=== PATIENT | female | born 1975 | race Caucasian/White ===

== ENCOUNTER 2020-10-02 12:24 | Emergency (ER) | payer OTHER, MEDICAID, SELFPAY ==
[2020-10-02] VITALS (12 sets, daily range): BP systolic 118–163; BP diastolic 65–108; PULSE 117–129; RESP 16–26; TEMP 36.7–38.6; O2SAT 87–100; BMI 73.3
--- NOTE | 2020-10-02 12:46 | EKG12_ITS ---
Test Reason : CELLULITIS Blood Pressure : / mmHG Vent. Rate : 120 BPM Atrial Rate : 120 BPM P-R Int : 138 ms QRS Dur : 082 ms QT Int : 316 ms P-R-T Axes : 039 062 -21 degrees QTc Int : 446 ms Sinus tachycardia Nonspecific T wave abnormality Abnormal ECG Confirmed by ANGELIA OSBORNE, MARIBELL ([id number]), marketing editor JOSE DAVIS ([id number]) on 10/04/2020 12:40:40 PM Referred By: MR Confirmed By:MARIBELL GALAN MD
[2020-10-02 13:17] LABS: Absolute Lymphocyte Count 0.99 X10^3/uL (0.83-4.51); Absolute Neutrophil Count 20.5 X10^3/uL (2.0-7.7); Basophil# 0.03 X10^3/uL; Basophil% 0.1 % (0-1); Eosinophil# 0.03 X10^3/uL; Eosinophils% 0.1 % (0-5); Hematocrit 31.4 % (37-47); Hemoglobin 9.7 g/dL (12.0-15.0); Lymphocyte # 0.99 X10^3/ul (0.83-4.51); Lymphocyte % 4.4 % (19-41); Mean Corp Hgb Conc 30.9 g/dL (32-36); Mean Corpuscular Hgb 25.5 pg (27.0-32.0); Mean Corpuscular Volume 82.4 fL (81-99); Mean Platelet Vol. 10.2 fl (6.2-12.0); Monocyte# 0.53 X10^3/uL; Monocyte% 2.4 % (0-10); NRBC Flagged by Analyzer 0 % (0-5); Neutrophil # 20.46 X10^3/uL (2.7-7.7); POSITIVE DIFFERENTIAL YES; Platelet Count 250 K/mm3 (150-450); RBC Distribution Width CV 16.5 % (11.6-14.6); RBC Distribution Width SD 49.8 fl (35.1-43.9); Red Blood Count 3.81 M/mm3 (4.2-5.4); White Blood Count 22.3 K/mm3 (4.4-11.0)
[2020-10-02 13:19] LABS: Differential Indicated SCAN CRITERIA MET
[2020-10-02 13:34] LABS: International Normalized Ratio 1.2; Partial Thromboplast Time 35.2 Seconds (24.1-36.2); Prothrombin Time (Protime)PT. 14.4 SECONDS (11.7-14.9)
[2020-10-02 13:34] LABS: ALB/GLOB Ratio 0.4 RATIO (0.9-2.4); AST(SGOT) 18 U/L (15-37); Alanine Aminotransfer ALT/SGPT 17 U/L (13-56); Albumin, Serum 2.3 g/dL (3.2-5.0); Alkaline Phosphatase 124 U/L (45-117); Anion Gap 7 (5-15); BUN 10 mg/dL (7-18); BUN/Creat Ratio 11.5 RATIO (10-20); Calcium,Total 8.6 mg/dL (8.5-10.1); Chloride 96 mmol/L (98-107); Creatinine, Serum 0.87 mg/dL (0.55-1.02); EST Glomerular Filtration Rate 76 mL/min (>60); Est Glom Filt Rate - Afr Amer 91 mL/min (>60); Estimated Creatinine Clearance 78.05 ml/min; Globulin 5.5 g/dL (2.2-4.2); Glucose 151 mg/dL (74-106); Potassium 3.6 mmol/L (3.5-5.1); Protein, Total 7.8 g/dL (6.4-8.2); Sodium Level 133 mmol/L (136-145)
[2020-10-02] MEDS: 0.9% Normal Saline 1,000 ML 999 ML IV (13:44)
[2020-10-02 14:01] LABS: Lactic Acid 2.5 mmol/L (0.4-1.9)
--- NOTE | 2020-10-02 14:03 | EDS_ITS ---
HPI History of Present Illness Chief Complaint: Cellulitis Narrative Narrative: Patient presenting for evaluation due to concerns for cellulitis. Patient has a underlying history of lymphedema and T-cell lymphoma. Patient reports that over the course the last 1-2 days she has had an onset of cellulitis in her right leg. Redness has been spreading up her leg to her thigh is intermittently painful. She does report that she has been dealing with chills and some nausea associated with this. No vomiting. No other constitutional symptoms. Patient states that she has had multiple similar episodes in the past that have required antibiotics and admission. Review of systems otherwise negative. [facility] Medical History Asthma Crohn disease Carole-Danlos syndrome Kidney stones Lumbar spondylosis Lymphedema Obesity Renal atrophy Splenomegaly T-cell lymphoma Home Medications acetaminophen [Tylenol Arthritis] 1,300 mg PO Q12H 10/02/20 [History Last Taken 10/02/20] albuterol sulfate 1 inh INHALATION Q6H PRN 10/02/20 [History Last Taken 10/01/20] azelastine 1 spray INTRANASAL BID 10/02/20 [History Last Taken 10/01/20] ciclesonide 1 puff INHALATION BID 10/02/20 [History Last Taken 10/01/20] duloxetine 20 mg PO BID 10/02/20 [History Last Taken 10/01/20] furosemide 40 mg PO DAILY 10/02/20 [History Last Taken 10/01/20] gabapentin 300 mg PO TID 10/02/20 [History Last Taken 10/01/20] [id number] [Osteo Bi-Flex Triple Strength] 1 tab PO BID 10/02/20 [History Last Taken 10/01/20] ibuprofen 400 mg PO DAILY PRN 10/02/20 [History Last Taken Unknown] montelukast 10 mg PO QHS 10/02/20 [History Last Taken 10/01/20] Allergy/AdvReac Type Severity Reaction Status Date / Time Nitrate Analogues Allergy Unknown Other Verified 10/02/20 12:45 adhesive tape Allergy Rash Verified 10/02/20 12:45 aspirin Allergy Angioedema Verified 10/02/20 12:45 benzonatate Allergy Shortness Verified 10/02/20 12:45 of breath cephalexin Allergy Rash Verified 10/02/20 12:45 coconut oil Allergy Other Verified 10/02/20 12:45 copper Allergy Other Verified 10/02/20 12:45 formaldehyde Allergy Anaphylaxis Verified 10/02/20 12:45 Iodine and Iodide Containing Allergy Anaphylaxis Verified 10/02/20 12:45 Produc latex Allergy Anaphylaxis Verified 10/02/20 12:45 mold Allergy Anaphylaxis Verified 10/02/20 12:45 nickel Allergy Rash Verified 10/02/20 12:45 nitrofurantoin Allergy Anaphylaxis Verified 10/02/20 12:45 palm oil Allergy Other Verified 10/02/20 12:45 Penicillins Allergy Rash Verified 10/02/20 12:45 soy Allergy Other Verified 10/02/20 12:45 Sulfa (Sulfonamide Allergy Rash Verified 10/02/20 12:45 Antibiotics) topiramate Allergy Other Verified 10/02/20 12:45 aspartame AdvReac Other Verified 10/02/20 12:45 lactose AdvReac Nausea Verified 10/02/20 12:45 morphine AdvReac Other Verified 10/02/20 12:45 eggs Allergy Rash Uncoded 10/02/20 12:45 gold Allergy Rash Uncoded 10/02/20 12:45 Social History Smoking Status: Never smoker ROS ROS ED Constitutional Constitutional ED: Reports chills and fever(s) ENT ENT ED: Denies rhinorrhea Cardiovascular Cardiovascular: Denies chest pain Respiratory/Chest Respiratory/Chest: Denies cough or dyspnea Gastrointestinal Gastrointestinal: Denies abdominal pain, diarrhea, nausea or vomiting Genitourinary Genitourinary ED: Denies dysuria or hematuria Musculoskeletal Musculoskeletal: Denies back pain Integumentary Reports rash Neurologic Neurologic: Denies paresthesias or weakness Psychiatric Psychiatric: Denies depression Endocrine Endocrinology: Denies fatigue Allergic/Immunologic Allergic/Immunologic ED: Denies urticaria EXAM Physical Exam Const Vital Signs: 10/02/20 12:30 10/02/20 12:33 10/02/20 13:26 Temperature 99.1 F 99.1 F Temperature Source Temporal Temporal Pulse Rate 124 H 124 H 122 H Respiratory Rate 24 H 24 H 24 H Blood Pressure 140/70 H 140/70 H 133/82 H Blood Pressure Mean 93 93 99 Pulse Ox 95 95 100 Oxygen Delivery Method Room Air Room Air Room Air 10/02/20 13:35 10/02/20 13:36 10/02/20 13:52 Temperature 98.1 F 98.1 F 99.0 F Temperature Source Temporal Temporal Temporal Pulse Rate 120 H 117 H Respiratory Rate 20 H 20 H Blood Pressure 133/82 H 131/73 H Blood Pressure Mean 99 92 Pulse Ox 99 100 Oxygen Delivery Method Room Air Room Air Room Air 10/02/20 14:43 Temperature 99.0 F Temperature Source Temporal Pulse Rate 125 H Respiratory Rate 20 H Blood Pressure 142/90 H Blood Pressure Mean 107 Pulse Ox 95 Oxygen Delivery Method Room Air Positive well nourished and well developed Constitutional Narrative: Morbidly obese female sitting upright in bed not acutely distressed General Appearance ED: well developed and NAD HEENT Reports moist mucous membranes Negative for trauma or tenderness Eyes EOMs intact bilaterally Neck no lymphadenopathy, supple and no JVD Chest Wall inspection of chest normal Resp normal respiratory effort and clear to auscultation bilaterally Cardio regular rhythm, no murmurs and peripheral pulses 2+ throughout Rate: other Other Details: Tachycardic and regular normal pulses no murmurs GI normal to inspection, nondistended, normoactive bowel sounds, non-tender and no masses Palpation: soft Back/Spine normal to inspection Extremity Extremity Narrative: Right leg shows significant cellulitis going from the foot all the way up to the mid thigh. There is no crepitus or subcutaneous emphysema, minimal tenderness to palpation. General Extremety ED: Yes tenderness Neuro oriented x3 and no sensory deficits noted Sensorium / Orientation: alert Motor Exam: strength 5/5 throughout Psych mental status grossly normal Skin no rashes or lesions noted MDM MDM MDM Narrative Medical decision making narrative: Patient presented for evaluation secondary to cellulitis of the leg. This was a rather precipitous onset, patient has a history of immunosuppression and was tachycardic, sepsis work-up was obtained patient has multiple medication allergies, so she was empirically given clindamycin. Patient was started on fluid resuscitation. Patient was noted to have a white blood cell count of 22,000 with a neutrophilic predominance, unknown what her baseline is due to the fact that we do not have any prior labs. Chemistry demonstrates normal renal function lactic acid modestly elevated at 2.5. Patient does have evidence of sepsis from cellulitis, I contacted the hospitalist Dr. Kirk for admission. Upon evaluation of the patient she was concerned about the possibility of maybe even a necrotizing infection, so we added amikacin as well as vancomycin to the patient's antibiotic regimen and did order a CT scan of the leg. Patient reports that she has a history of anaphylaxis to iodine-containing products and she is not able to receive a contrasted CT of the leg. Repeat evaluation of the patient at 1450 shows her to continue to have some tachycardia at 120 with a normal blood pressure. Her fluid resuscitation is still continuing at this time. Patient did spike a fever which was addressed with Tylenol. Repeat perfusion exam continues to show the patient to have some tachycardia with normal blood pressure normal mentation. CT imaging per radiology did not demonstrate any necrotizing fasciitis, there was a potential slight phlegmon in the thigh. Patient will be admitted for further medical management. Lab Data Labs: Laboratory Results - last 24 hr 10/02/20 10/02/20 10/02/20 13:05 13:05 13:05 WBC 22.3 H RBC 3.81 L Hgb 9.7 L Hct 31.4 L MCV 82.4 MCH 25.5 L MCHC 30.9 L RDW Std Deviation 49.8 H RDW Coeff of Fanny 16.5 H Plt Count 250 MPV 10.2 Immature Gran % (Auto) 1.000 H Neut % (Auto) 92.0 H Lymph % (Auto) 4.4 L [place] % (Auto) 2.4 Eos % (Auto) 0.1 Baso % (Auto) 0.1 Absolute Neuts (auto) 20.5 H Absolute Lymphs (auto) 0.99 Nucleated RBC % 0 PT INR APTT Sodium 133 L Potassium 3.6 Chloride 96 L Carbon Dioxide 30.0 Anion Gap 7 BUN 10 Creatinine 0.87 Estim Creat Clear Calc 78.05 Est GFR (MDRD) Af Amer 91 Est GFR (MDRD) Non-Af 76 BUN/Creatinine Ratio 11.5 Glucose 151 H Lactic Acid 2.5 H* Calcium 8.6 Total Bilirubin 0.50 AST 18 ALT 17 Alkaline Phosphatase 124 H Total Protein 7.8 Albumin 2.3 L Globulin 5.5 H Albumin/Globulin Ratio 0.4 L 10/02/20 13:15 WBC RBC Hgb Hct MCV MCH MCHC RDW Std Deviation RDW Coeff of Fanny Plt Count MPV Immature Gran % (Auto) Neut % (Auto) Lymph % (Auto) [place] % (Auto) Eos % (Auto) Baso % (Auto) Absolute Neuts (auto) Absolute Lymphs (auto) Nucleated RBC % PT 14.4 INR 1.2 APTT 35.2 Sodium Potassium Chloride Carbon Dioxide Anion Gap BUN Creatinine Estim Creat Clear Calc Est GFR (MDRD) Af Amer Est GFR (MDRD) Non-Af BUN/Creatinine Ratio Glucose Lactic Acid Calcium Total Bilirubin AST ALT Alkaline Phosphatase Total Protein Albumin Globulin Albumin/Globulin Ratio Radiography Diagnostic Testing: Radiology Impression Lower Extremity CT 10/02/20 14:07 IMPRESSION: Diffuse subcutaneous edema and skin thickening in the distal portion of the right thigh and right leg as described. Questionable focal area of the phlegmon in the anterior medial aspect of the mid leg as described. The underlying bony structures are unremarkable. Electronically Signed: Mika Lockwood MD at 15:36 EDT , Service support , Critical Care Time Critical care time (excluding procedures): 30-74 minutes, Including time spent:, Discussing w/Patient &/or Family/Diesel Service Journeyman, Discussing w/Consultants, Arranging Admission or Transfer and Performing Direct Patient Care at Bedside Discharge Plan Triage Chief Complaint: Cellulitis ED Provider: Kory Montes Dx/Rx/DC Orders Clinical Impression: Cellulitis, Sepsis
--- NOTE | 2020-10-02 14:07 | CT_ITS ---
STUDY: CT SCAN LOWER EXTREMITY RIGHT REASON FOR EXAM: Female, 44 years old. Infection RADIATION DOSAGE (If Supplied By Facility): CTDIvol = ( 28.23 ) mGy, DLP = ( 2527.91 ) mGycm. Individualized dose optimization techniques were used for this CT.? TECHNIQUE: Multiple axial tomographic images of the right lower extremity were obtained without intravenous contrast administration. Sagittal and coronal reconstruction was obtained as well. COMPARISON: None. FINDINGS: There is diffuse increased linear markings in the distal portion of the right thigh extending into the lower leg more prominent on the medial aspect. There is diffuse skin thickening in the proximal portion of the right leg. This also evidence of diffuse skin thickening in the mid and distal portions of the leg. Questionable focal phlegmon measuring 8.5 cm x 2 cm in the anterior medial aspect of the mid leg. CT/Extremity Lower without Contra IMPRESSION: Diffuse subcutaneous edema and skin thickening in the distal portion of the right thigh and right leg as described. Questionable focal area of the phlegmon in the anterior medial aspect of the mid leg as described. The underlying bony structures are unremarkable. Electronically Signed: Mika Lockwood MD at 15:36 EDT , Service support ,
[2020-10-02] MEDS: HYDROmorphone 1 MG/ML Syringe IV (14:40)
[2020-10-02] MEDS: Acetaminophen 500 MG Tablet 1000 MG PO (16:01)
[2020-10-02 17:08] LABS: CPK Total, Creatine Kinase 31 U/L (26-192)
[2020-10-02 17:13] LABS: Reflex Lactate? Y
[2020-10-02 18:51] LABS: Lactic Acid 2.9 mmol/L (0.4-1.9)
--- NOTE | 2020-10-04 06:28 | ED.RN ---
POSITIVE BLOOD CULTURE RESULTS FAXED TO [facility] FLOOR THAT PT WAS ADMITTED TO. THIS RN ALSO CALLED THE FLOOR ([phone]) AND NOTIFIED THEM OF THE RESULT
== END 2020-10-02 19:24 | disposition short-term general hospital (02) ==
LOC: ED 13:17
PROVIDERS: Emergency Medicine; Emergency Provider Emergency Medicine
DX: L03.115 Cellulitis of right lower limb (principal); A41.9 Sepsis, unspecified organism; D84.9 Immunodeficiency, unspecified; E66.9 Obesity, unspecified; Z68.45 Body mass index [BMI] 70 or greater, adult; I89.0 Lymphedema, not elsewhere classified; J45.909 Unspecified asthma, uncomplicated; K50.90 Crohn's disease, unspecified, without complications; Q79.60 Ehlers-Danlos syndrome, unspecified; M47.816 Spondylosis without myelopathy or radiculopathy, lumbar region; Z85.6 Personal history of leukemia; Z87.442 Personal history of urinary calculi; Z79.899 Other long term (current) drug therapy
CPT/HCPCS: 73700; 80053; 82550; 83605; 85025; 85610; 85730; 87040; 87149; 87186; 93005; 96365; 96368; 96375; 99285; J7030; J7040; J7050; A4216; J0278

== ENCOUNTER 2020-10-12 13:39 | Inpatient (IN) | payer OTHER, MEDICAID, SELFPAY ==
[2020-10-02 12:30] VITALS: BMI 73.3
[2020-10-12] VITALS (22 sets, daily range): BP systolic 112–140; BP diastolic 60–94; PULSE 97–112; RESP 18–34; TEMP 36.2–37.3; O2SAT 90–100; BMI 73.5; BMI 72.8
--- NOTE | 2020-10-12 14:32 | RAD_ITS ---
HISTORY: sob EXAMINATION/TECHNIQUE: XR Chest 1 View: Removal upright AP chest x-ray COMPARISON: None FINDINGS: LINES/DEVICES: None. LUNGS: Hazy bilateral airspace opacities with consolidation at the periphery of the left lower lung field. No definite pleural effusion. MEDIASTINUM AND CARDIOVASCULAR STRUCTURES: Cardiac silhouette not enlarged. Central airways and mediastinal contour are unremarkable. BONES AND SOFT TISSUES: No acute bony abnormalities. RAD/Chest 1 View (Portable) IMPRESSION: Bilateral airspace disease with peripheral consolidation suspicious for pneumonia including atypical or viral pneumonia. at 1524 Reported and signed by: Quinn Sarah MD Electronically Signed: Quinn Sarah MD at 15:23 EDT Tel , Service support ,
--- NOTE | 2020-10-12 14:32 | EKG12_ITS ---
Test Reason : CHEST PAIN Blood Pressure : / mmHG Vent. Rate : 104 BPM Atrial Rate : 104 BPM P-R Int : 132 ms QRS Dur : 078 ms QT Int : 338 ms P-R-T Axes : 055 061 021 degrees QTc Int : 444 ms Sinus tachycardia Nonspecific T wave abnormality Abnormal ECG Confirmed by ALVIN OSBORNE, KAREN ([id number]), industrial editor JOSE DAVIS ([id number]) on 10/16/2020 9:13:52 AM Referred By: CARIDAD Confirmed By:GUADALUPE ESQUIVEL MD
--- NOTE | 2020-10-12 14:36 | ED.VIS.DYS ---
HPI History of Present Illness Chief Complaint: Shortness of Breath Informant: patient Narrative Narrative: Patient is a 44-year-old female presenting with shortness of breath. Patient states he has a history of asthma. She was just discharged from [facility] on Friday, 4 days ago, where she was treated for cellulitis of her right lower extremity. Patient is discharged home on doxycycline. She states since she was discharged in the hospital she has had worsening cough and shortness of breath. She states she is coughing up a lot of mucus that is clear but with red strings in it. She notes that she was on oxygen in the hospital but was not discharged on any oxygen. She states she has chest pressure and wheezing. She denies any chest pain. She has subjective fevers but no documented fever. She is not currently on any anticoagulation but states she does have a history of DVT associated with corpse fly bite. Patient's been using her inhaler at home with no relief of her symptoms. She knows she has an anaphylactic history of iodine allergy and is not tolerated steroid prep in the past. [facility] Medical History Asthma Chronic pain Crohn disease Carole-Danlos syndrome GERD (gastroesophageal reflux disease) Irregular heart beat Kidney stones Lumbar spondylosis Lymphedema Migraines Obesity Renal atrophy Rheumatoid arthritis Splenomegaly T-cell lymphoma Home Medications acetaminophen [Tylenol Arthritis] 1,300 mg PO Q12H 10/02/20 [History Last Taken 10/02/20] albuterol sulfate 1 inh INHALATION Q6H PRN 10/02/20 [History Last Taken 10/01/20] azelastine 1 spray INTRANASAL BID 10/02/20 [History Last Taken 10/01/20] ciclesonide 1 puff INHALATION BID 10/02/20 [History Last Taken 10/01/20] duloxetine 20 mg PO BID 10/02/20 [History Last Taken 10/01/20] furosemide 40 mg PO DAILY 10/02/20 [History Last Taken 10/01/20] gabapentin 300 mg PO PRN PRN 10/02/20 [History Last Taken 10/01/20] [id number]-jamie-bosw [Osteo Bi-Flex Triple Strength] 1 tab PO BID 10/02/20 [History Last Taken 10/01/20] ibuprofen 400 mg PO DAILY PRN 10/02/20 [History Last Taken Unknown] montelukast 10 mg PO QHS 10/02/20 [History Last Taken 10/01/20] doxycycline hyclate 100 mg PO DAILY 10/12/20 [History Last Taken Unknown] Allergy/AdvReac Type Severity Reaction Status Date / Time Nitrate Analogues Allergy Unknown Other Verified 10/02/20 12:45 adhesive tape Allergy Rash Verified 10/02/20 12:45 aspirin Allergy Angioedema Verified 10/02/20 12:45 benzonatate Allergy Shortness Verified 10/02/20 12:45 of breath cephalexin Allergy Rash Verified 10/02/20 12:45 coconut oil Allergy Other Verified 10/02/20 12:45 copper Allergy Other Verified 10/02/20 12:45 formaldehyde Allergy Anaphylaxis Verified 10/02/20 12:45 Iodine and Iodide Containing Allergy Anaphylaxis Verified 10/02/20 12:45 Produc latex Allergy Anaphylaxis Verified 10/02/20 12:45 mold Allergy Anaphylaxis Verified 10/02/20 12:45 nickel Allergy Rash Verified 10/02/20 12:45 nitrofurantoin Allergy Anaphylaxis Verified 10/02/20 12:45 palm oil Allergy Other Verified 10/02/20 12:45 Penicillins Allergy Rash Verified 10/02/20 12:45 soy Allergy Other Verified 10/02/20 12:45 Sulfa (Sulfonamide Allergy Rash Verified 10/02/20 12:45 Antibiotics) topiramate Allergy Other Verified 10/02/20 12:45 aspartame AdvReac Other Verified 10/02/20 12:45 lactose AdvReac Nausea Verified 10/02/20 12:45 morphine AdvReac Other Verified 10/02/20 12:45 eggs Allergy Rash Uncoded 10/02/20 12:45 gold Allergy Rash Uncoded 10/02/20 12:45 Social History Smoking Status: Never smoker ROS ROS ED Constitutional Constitutional ED: Reports fever(s) Eyes Eyes: Denies change in vision ENT ENT ED: Denies rhinorrhea or sore throat Cardiovascular Cardiovascular: Reports chest pain; Denies palpitations or racing heartbeat Respiratory/Chest Respiratory/Chest: Reports cough, dyspnea and sputum Gastrointestinal Gastrointestinal: Denies abdominal pain, nausea or vomiting Genitourinary Genitourinary ED: Denies dysuria or hematuria Musculoskeletal Musculoskeletal: Denies arthralgias or myalgias Integumentary Reports rash and other Details: right leg- treated for cellulitis Neurologic Neurologic: Denies headache(s) or weakness EXAM Physical Exam Const Vital Signs: 10/12/20 13:43 10/12/20 14:04 10/12/20 14:28 Temperature 98.6 F 98.6 F Temperature Source Temporal Temporal Pulse Rate 107 H 107 H Respiratory Rate 26 H 26 H Respiratory Effort Short of Breath Labored Accessory Muscle Use Respiratory Depth Shallow Respiratory Pattern Tachypnea Blood Pressure 138/75 H 138/75 H Blood Pressure Mean 96 96 Pulse Ox 90 90 Oxygen Delivery Method Non-Rebreather Room Air Nasal Cannula Oxygen Flow Rate (L/min) 15 15 2 10/12/20 14:44 Temperature Temperature Source Pulse Rate 103 H Respiratory Rate 34 H Respiratory Effort Respiratory Depth Respiratory Pattern Tachypnea Blood Pressure Blood Pressure Mean Pulse Ox Oxygen Delivery Method Oxygen Flow Rate (L/min) Positive obese General Appearance ED: NAD Nutritional Appearance: obese HEENT Reports moist mucous membranes atraumatic Eyes PERRL and EOMs intact bilaterally Neck no lymphadenopathy and supple Resp normal respiratory effort Auscultation: diminished lung sounds left lower; Negative for rhonchi or wheezes Cardio no murmurs Rate: tachycardic GI non-tender Palpation: soft Extremity Extremity Narrative: Erythema of the right inner leg with some associated skin peeling. Consistent with patient's recent diagnosis of cellulitis. Compression Josemanuel wraps wrapped around bilateral lower calves. General Extremety ED: Yes edema General Extremity: edema Neuro oriented x3 Sensorium / Orientation: alert; Negative for lethargic Psych mental status grossly normal Thought Process: normal thought process Skin Skin Narrative: Erythema of the left lower extremity MDM MDM MDM Narrative Medical decision making narrative: Patient evaluated for worsening shortness of breath. Patient was hypoxic requiring pulmonary oxygen. She does not wear oxygen. She is between 90 and 92% on 2 L of oxygen. Differential includes pneumonia, Covid, fluid overload and PE given her recent hospitalization. Her high sensitive troponin is negative. BNP is 2.2. Chest x-ray shows multifocal infiltrates. Her Covid test is positive. I suspect this is the cause of her hypoxia. Venous duplex is obtained which is negative. Patient is normalization of her leukocytosis. I cannot perform a CTA to rule out PE as patient has a history of anaphylactic reaction to contrast and has not tolerated preps in the past. Patient is admitted to hospital service for her hypoxia and further treatment for her Covid pneumonia. She is given 8 mg of p.o. Decadron in the emergency room. Venous duplex ultrasound of the legs was obtained which was negative for DVT. Lab Data Labs: Laboratory Results - last 24 hr 10/12/20 10/12/20 10/12/20 14:20 14:20 14:20 WBC 5.8 RBC 3.46 L Hgb 8.5 L Hct 29.6 L MCV 85.5 MCH 24.6 L MCHC 28.7 L RDW Std Deviation 54.1 H RDW Coeff of Fanny 17.4 H Plt Count 262 MPV 8.8 Immature Gran % (Auto) 1.000 H Neut % (Auto) 80.6 H Lymph % (Auto) 12.6 L [place] % (Auto) 5.4 Eos % (Auto) 0.2 Baso % (Auto) 0.2 Absolute Neuts (auto) 4.7 Absolute Lymphs (auto) 0.73 L Nucleated RBC % 0.3 Sodium 135 L Potassium 3.9 Chloride 95 L Carbon Dioxide 34.0 H Anion Gap 6 BUN 9 Creatinine 0.72 Estim Creat Clear Calc 94.31 Est GFR (MDRD) Af Amer 113 Est GFR (MDRD) Non-Af 94 BUN/Creatinine Ratio 12.5 Glucose 94 Lactic Acid Calcium 8.1 L Troponin I High Sens 5.0 B-Natriuretic Peptide 2.2 10/12/20 14:20 WBC RBC Hgb Hct MCV MCH MCHC RDW Std Deviation RDW Coeff of Fanny Plt Count MPV Immature Gran % (Auto) Neut % (Auto) Lymph % (Auto) [place] % (Auto) Eos % (Auto) Baso % (Auto) Absolute Neuts (auto) Absolute Lymphs (auto) Nucleated RBC % Sodium Potassium Chloride Carbon Dioxide Anion Gap BUN Creatinine Estim Creat Clear Calc Est GFR (MDRD) Af Amer Est GFR (MDRD) Non-Af BUN/Creatinine Ratio Glucose Lactic Acid 1.0 Calcium Troponin I High Sens B-Natriuretic Peptide Radiography Chest X-Ray - ED: 1 View, Read by ED Physician, Read by Radiologist, Right Infiltrate and Left Infiltrate Diagnostic Testing: Radiology Impression Chest X-Ray 10/12/20 14:32 IMPRESSION: Bilateral airspace disease with peripheral consolidation suspicious for pneumonia including atypical or viral pneumonia. at 1524 Reported and signed by: Quinn Sarah MD Electronically Signed: Quinn Sarah MD at 15:23 EDT Tel , Service support , Rhythm Strip Rhythm Strip: Sinus Tach Rate: 104 Ectopy: None EKG Initial EKG: Attestation: I personally reviewed and interpreted this EKG as follows: Interpretation: Sinus Tachycardia Comments: Sinus tachycardia rate of 104 Normal axis Normal intervals Normal ST segments Mild T wave flattening in aVF Discharge Plan Triage Chief Complaint: Shortness of Breath ED Provider: Renate Lancaster Dx/Rx/DC Orders Clinical Impression: COVID-19 virus infection, Hypoxia Prescriptions: No Action duloxetine 20 mg Capsule, Delayed Rel Sprinkle 20 mg PO BID RF: 0 furosemide 40 mg Tablet 40 mg PO DAILY RF: 0 gabapentin 300 mg Capsule 300 mg PO PRN PRN (Reason: muscle spasms) RF: 0 montelukast 10 mg Tablet 10 mg PO QHS RF: 0 azelastine 137 mcg (0.1 %) Aerosol,[place] 1 spray INTRANASAL BID RF: 0 ciclesonide 80 mcg/actuation Hfa Aerosol Inhaler 1 puff INHALATION BID RF: 0 albuterol sulfate 90 mcg/actuation Aerosol Powdr Breath Activated 1 inh INHALATION Q6H PRN (Reason: Wheezing) RF: 0 acetaminophen [Tylenol Arthritis] 650 mg Tablet Extended Release 1,300 mg PO Q12H RF: 0 ibuprofen 200 mg Tablet 400 mg PO DAILY PRN (Reason: Pain) RF: 0 Osteo Bi-Flex Triple Strength 750 mg-644 mg- 30 mg-1 mg Tablet 1 tab PO BID RF: 0 doxycycline hyclate 100 mg capsule 100 mg PO DAILY RF: 0 Primary Care Provider: Care Physician,No Primary Referrals: Care Physician,No Primary [Primary Care Provider] -
--- NOTE | 2020-10-12 14:37 | VDLE_ITS ---
Reason For Study: swelling RIGHT LEFT GSV is normal. GSV is normal. CFV is compressible. CFV is compressible. FV is compressible. FV is compressible. Pop V is compressible. Pop V is compressible. T/P Trunk is compressible. T/P Trunk is compressible. PTV is compressible. PTV is compressible. Procedure This is a venous duplex using B-mode, color flow and spectral Doppler. Exam performed portable in ED. The exam was abbreviated due to the COVID 19 protocol. The exam was of fair technical quality due to Pt body habitus. Pt is 5'6 455lbs. A preliminary report was called and/or faxed to Dr. Lancaster. VL/Venous Duplex US - Akhil Extrem Interpretation Summary Deep veins of the lower extremities are bilaterally patent and compressible seg mentally. There is no evidence of deep vein thrombosis on either side. The great saphenous veins appe ar bilaterally patent and compressible segmentally. Ordering Physician: Renate Lancaster Performed By: Porfirio Steele RVT
[2020-10-12 14:41] LABS: Absolute Lymphocyte Count 0.73 X10^3/uL (0.83-4.51); Absolute Neutrophil Count 4.7 X10^3/uL (2.0-7.7); Basophil# 0.01 X10^3/uL; Basophil% 0.2 % (0-1); Eosinophil# 0.01 X10^3/uL; Eosinophils% 0.2 % (0-5); Hematocrit 29.6 % (37-47); Hemoglobin 8.5 g/dL (12.0-15.0); Lymphocyte # 0.73 X10^3/ul (0.83-4.51); Lymphocyte % 12.6 % (19-41); Mean Corp Hgb Conc 28.7 g/dL (32-36); Mean Corpuscular Hgb 24.6 pg (27.0-32.0); Mean Corpuscular Volume 85.5 fL (81-99); Mean Platelet Vol. 8.8 fl (6.2-12.0); Monocyte# 0.31 X10^3/uL; Monocyte% 5.4 % (0-10); NRBC Flagged by Analyzer 0.3 % (0-5); Neutrophil # 4.67 X10^3/uL (2.7-7.7); Neutrophil % 80.6 % (47-70); Platelet Count 262 K/mm3 (150-450); RBC Distribution Width CV 17.4 % (11.6-14.6); RBC Distribution Width SD 54.1 fl (35.1-43.9); Red Blood Count 3.46 M/mm3 (4.2-5.4); White Blood Count 5.8 K/mm3 (4.4-11.0)
[2020-10-12] MEDS: Ipratropium/Albuterol Sulfate 3 ML AMPUL.NEB INHALATION (14:42)
[2020-10-12 14:58] LABS: Anion Gap 6 (5-15); BNP,B-Type NATRIURETIC PEPTIDE 2.2 pg/mL (0-100); BUN 9 mg/dL (7-18); BUN/Creat Ratio 12.5 RATIO (10-20); Calcium,Total 8.1 mg/dL (8.5-10.1); Chloride 95 mmol/L (98-107); Creatinine, Serum 0.72 mg/dL (0.55-1.02); EST Glomerular Filtration Rate 94 mL/min (>60); Est Glom Filt Rate - Afr Amer 113 mL/min (>60); Estimated Creatinine Clearance 94.31 ml/min; Glucose 94 mg/dL (74-106); Potassium 3.9 mmol/L (3.5-5.1); Sodium Level 135 mmol/L (136-145)
[2020-10-12] MEDS: dexAMETHasone 4 MG Tablet 8 MG PO (15:34)
--- NOTE | 2020-10-12 15:51 | HP.PCM.HOS_ITS ---
HPI - General General Date of Admission: 10/12/20 Date of Service: 10/12/20 Chief Complaint: Shortness of breath HPI Narrative HELGA JENSEN, is a 44 F with past medical history segment for super morbid obesity with BMI of 73.6, recent admission to the [facility] from 10/02/2020 to 10/08/2020 on account of cellulitis involving the right lower extremity with high suspicion for neck/. Per patient neck fascia was ruled out discharged home 5 days prior to her admission with doxycycline. Per patient her symptoms started 6 days ago at [facility] whilst on admission. His symptoms initially started with cough. She subsequently developed subjective fever as well as dull headaches. Her shortness of breath began a few days prior to her admission. Presented to the emergency department due to worsening breathing status. Patient was found by the EMS squad to be significantly hypoxic with oxygen saturation at 72%. Was placed on supplemental oxygen and brought to the ED. Checks x-ray obtained in the ED demonstrated Bilateral airspace disease with peripheral consolidation suspicious for pneumonia including atypical or viral pneumonia. Her SARS-CoV-2 assay came back positive admitted to the intensive care unit for subsequent management [facility] Medical History (Updated 10/12/20 @ 16:[address] Gil Shoemaker MD) Asthma BMI 70 and over, adult Chronic pain Crohn disease Carole-Danlos syndrome GERD (gastroesophageal reflux disease) Irregular heart beat Kidney stones Lumbar spondylosis Lymphedema Migraines Obesity Renal atrophy Rheumatoid arthritis Splenomegaly T-cell lymphoma Home Medications acetaminophen [Tylenol Arthritis] 1,300 mg PO Q12H 10/02/20 [History Last Taken 10/02/20] albuterol sulfate 1 inh INHALATION Q6H PRN 10/02/20 [History Last Taken 10/01/20] azelastine 1 spray INTRANASAL BID 10/02/20 [History Last Taken 10/01/20] ciclesonide 1 puff INHALATION BID 10/02/20 [History Last Taken 10/01/20] duloxetine 20 mg PO BID 10/02/20 [History Last Taken 10/01/20] furosemide 40 mg PO DAILY 10/02/20 [History Last Taken 10/01/20] gabapentin 300 mg PO PRN PRN 10/02/20 [History Last Taken 10/01/20] [id number] [Osteo Bi-Flex Triple Strength] 1 tab PO BID 10/02/20 [History Last Taken 10/01/20] ibuprofen 400 mg PO DAILY PRN 10/02/20 [History Last Taken Unknown] montelukast 10 mg PO QHS 10/02/20 [History Last Taken 10/01/20] doxycycline hyclate 100 mg PO DAILY 10/12/20 [History Last Taken Unknown] Allergy/AdvReac Type Severity Reaction Status Date / Time Nitrate Analogues Allergy Unknown Other Verified 10/02/20 12:45 adhesive tape Allergy Rash Verified 10/02/20 12:45 aspirin Allergy Angioedema Verified 10/02/20 12:45 benzonatate Allergy Shortness Verified 10/02/20 12:45 of breath cephalexin Allergy Rash Verified 10/02/20 12:45 coconut oil Allergy Other Verified 10/02/20 12:45 copper Allergy Other Verified 10/02/20 12:45 formaldehyde Allergy Anaphylaxis Verified 10/02/20 12:45 Iodine and Iodide Containing Allergy Anaphylaxis Verified 10/02/20 12:45 Produc latex Allergy Anaphylaxis Verified 10/02/20 12:45 mold Allergy Anaphylaxis Verified 10/02/20 12:45 nickel Allergy Rash Verified 10/02/20 12:45 nitrofurantoin Allergy Anaphylaxis Verified 10/02/20 12:45 palm oil Allergy Other Verified 10/02/20 12:45 Penicillins Allergy Rash Verified 10/02/20 12:45 soy Allergy Other Verified 10/02/20 12:45 Sulfa (Sulfonamide Allergy Rash Verified 10/02/20 12:45 Antibiotics) topiramate Allergy Other Verified 10/02/20 12:45 aspartame AdvReac Other Verified 10/02/20 12:45 lactose AdvReac Nausea Verified 10/02/20 12:45 morphine AdvReac Other Verified 10/02/20 12:45 eggs Allergy Rash Uncoded 10/02/20 12:45 gold Allergy Rash Uncoded 10/02/20 12:45 Social History Smoking Status: Never smoker ROS ROS Narrative GENERAL: fever, chills, night sweats, HEENT: headache, sinus congestion, RESPIRATORY: cough, sputum production, shortness of breath, dyspnea on exertion CARDIAC: denies chest pain, palpitations, orthopnea, PND GASTROINTESTINAL: denies abdominal pain, nausea, vomiting, melena, GENITOURINARY: denies dysuria, urgency, frequency, heamaturia EXTREMITY: denies swelling MUSCULOSKELETAL: denies current joint pain or tenderness NEUROLOGIC: denies focal numbness, weakness, tingling HEMATOLOGIC: denies easy bruising and/or hemorrhage INTEGUMENT: An area of redness on the right medial thigh PSYCHIATRIC: denies suicidal or homicidal ideation Vital Signs Vital Signs Vital Signs: 10/12/20 13:43 10/12/20 14:04 10/12/20 14:28 Temperature 98.6 F 98.6 F Temperature Source Temporal Temporal Pulse Rate 107 H 107 H Respiratory Rate 26 H 26 H Respiratory Effort Short of Breath Labored Accessory Muscle Use Respiratory Depth Shallow Respiratory Pattern Tachypnea Blood Pressure 138/75 H 138/75 H Blood Pressure Mean 96 96 Pulse Ox 90 90 Oxygen Delivery Method Non-Rebreather Room Air Nasal Cannula Oxygen Flow Rate (L/min) 15 15 2 10/12/20 14:30 10/12/20 14:44 10/12/20 15:00 Temperature 97.6 F L Temperature Source Temporal Pulse Rate 111 H 103 H 102 H Respiratory Rate 29 H 34 H 23 H Respiratory Effort Respiratory Depth Respiratory Pattern Tachypnea Blood Pressure 129/76 H 129/64 H Blood Pressure Mean 93 85 Pulse Ox 92 93 Oxygen Delivery Method Nasal Cannula Nasal Cannula Oxygen Flow Rate (L/min) 2 4 10/12/20 15:42 Temperature 97.3 F L Temperature Source Temporal Pulse Rate 102 H Respiratory Rate 30 H Respiratory Effort Respiratory Depth Respiratory Pattern Blood Pressure 129/64 H Blood Pressure Mean 85 Pulse Ox 94 Oxygen Delivery Method Room Air Oxygen Flow Rate (L/min) Weight Weight: 206.8 kg Body Mass Index (BMI) 73.5 Physical Exam Narrative GENERAL: Patient appears ill looking HEENT: Atraumatic; EYES; Anicteric, Normal Conjunctiva NECK; supple, normal thyroid, RESPIRATORY: Diminished to auscultation CARDIOVASCULAR: Regular S1 S2, tachycardic GI: soft, normoactive bowel sounds, : No Renal angle tenderness; EXTREMITIES: No edema, no clubbing, MUSCULOSKELETAL: no muscle waisting NEURO: Awake; no lateralizing signs. SKIN: Area of erythema and warmth involving the right medial thigh PSYCH; Flat affect Results Lab / Micro Data Result Diagrams: 10/12/20 14:20 10/12/20 14:20 Labs: Laboratory Results - last 24 hr 10/12/20 14:20: WBC 5.8, RBC 3.46 L, Hgb 8.5 L, Hct 29.6 L, MCV 85.5, MCH 24.6 L , MCHC 28.7 L, RDW Std Deviation 54.1 H, RDW Coeff of Fanny 17.4 H, Plt Count 262, MPV 8.8, Immature Gran % (Auto) 1.000 H, Neut % (Auto) 80.6 H, Lymph % (Auto) 12.6 L, [place] % (Auto) 5.4, Eos % (Auto) 0.2, Baso % (Auto) 0.2, Absolute Neuts (auto) 4.7, Absolute Lymphs (auto) 0.73 L, Nucleated RBC % 0.3 10/12/20 14:20: Sodium 135 L, Potassium 3.9, Chloride 95 L, Carbon Dioxide 34.0 H, Anion Gap 6, BUN 9, Creatinine 0.72, Estim Creat Clear Calc 94.31, Est GFR (MDRD) Af Amer 113, Est GFR (MDRD) Non-Af 94, BUN/Creatinine Ratio 12.5, Glucose 94, Calcium 8.1 L, Troponin I High Sens 5.0 10/12/20 14:20: B-Natriuretic Peptide 2.2 10/12/20 14:20: Lactic Acid 1.0 Micro: Microbiology 10/12/20 14:40 Mucosa - Nose SARS-CoV-2 Antigen (Rapid) - Final SARS-CoV-2 (COVID 19) Rhythm Strip Rhythm Strip: Sinus Tach Rate: 104 Ectopy: None Radiology Impression Chest X-Ray 10/12/20 14:32 IMPRESSION: Bilateral airspace disease with peripheral consolidation suspicious for pneumonia including atypical or viral pneumonia. at 1524 Reported and signed by: Quinn Sarah MD Electronically Signed: Quinn Sarah MD at 15:23 EDT Tel , Service support , Assessment & Plan Assessment/Plan (1) Cellulitis: (2) COVID-19 virus infection: (3) Hypoxia: (4) Sepsis: (5) BMI 70 and over, adult: PLAN: Patient is a 44-year-old lady presenting with shortness of breath 1. Acute hypoxic respiratory failure ?Secondary to SARS-CoV-2 pneumonia. Patient has been admitted to the intensive care unit managed with supplemental oxygen, incentive spirometry,. Patient was placed under contact and droplet isolation. Was started on Decadron and remdesivir with consultation placed to both pulmonary medicine as well as infectious disease 2. Sepsis ?Secondary to SARS-CoV-2 pneumonia management as discussed above 3. Recent admission for cellulitis involving the right lower extremity ?Patient still has significant erythema patient is on doxycycline did continue 4. Anemia -Patient hemoglobin on admission was 8.5. This is thought to be secondary to chronic disorder monitoring H&H and transfuse if patient becomes symptomatic or hemoglobin falls below 7 5. Generalized osteoarthritis ?Patient is on acetaminophen did continue 6. Morbid obesity - With a BMI of 73.6 this obviously complicates patient's care. Patient was counseled on weight reduction 7. DVT prophylaxis - On enoxaparin Charges/Coding Visit Charges Inpatient E&M: 40118 Init Hosp L3
--- NOTE | 2020-10-12 16:33 | ED.RN ---
REPORT GIVEN TO JAN CATALAN.
[2020-10-12] MEDS: Enoxaparin 40 MG/0.4 ML Syringe SC (18:19)
[2020-10-12 18:32] LABS: Fibrinogen 783 mg/dl (203-444)
[2020-10-12 18:44] LABS: Lactic Acid 1.3 mmol/L (0.4-1.9)
[2020-10-12 18:50] LABS: Procalcitonin 0.13 ng/mL (0.00-0.09)
[2020-10-12 19:10] LABS: ALB/GLOB Ratio 0.3 RATIO (0.9-2.4); AST(SGOT) 43 U/L (15-37); Alanine Aminotransfer ALT/SGPT 27 U/L (13-56); Albumin, Serum 2.2 g/dL (3.2-5.0); Alkaline Phosphatase 116 U/L (45-117); Anion Gap 4 (5-15); BUN 9 mg/dL (7-18); BUN/Creat Ratio 12.2 RATIO (10-20); Bilirubin, Direct 0.14 mg/dL (0.00-0.30); CPK Total, Creatine Kinase 29 U/L (26-192); Calcium,Total 8.3 mg/dL (8.5-10.1); Chloride 96 mmol/L (98-107); Creatinine, Serum 0.74 mg/dL (0.55-1.02); EST Glomerular Filtration Rate 91 mL/min (>60); Est Glom Filt Rate - Afr Amer 110 mL/min (>60); Estimated Creatinine Clearance 91.77 ml/min; Globulin 6.8 g/dL (2.2-4.2); Glucose 104 mg/dL (74-106); LDH 244 U/L (84-246); Potassium 4.1 mmol/L (3.5-5.1); Sodium Level 133 mmol/L (136-145); Troponin-I HS 5.2 pg/mL (3.0-53.7)
[2020-10-12 19:11] LABS: BNP,B-Type NATRIURETIC PEPTIDE < 2.0 pg/mL (0-100)
--- NOTE | 2020-10-12 20:00 | NURSING ---
Assessment completed, pt denies pain or needs.
[2020-10-12] MEDS: 0.9% Saline Lock 10 ML Syringe IV (20:13)
[2020-10-12] MEDS: Remdesivir 200 MG IV x1 (Inital Dose)-All Patients 125 MG IV (20:13)
[2020-10-12] MEDS: DULoxetine Hcl 20 MG Capsule PO (22:47)
[2020-10-12] MEDS: Montelukast 10 MG Tablet PO (22:47)
[2020-10-12] MEDS: Famotidine 20 MG Tablet PO (22:47)
[2020-10-12] MEDS: Ibuprofen 400 MG Tablet PO (22:57)
[2020-10-13] VITALS (13 sets, daily range): BP systolic 99–146; BP diastolic 58–93; PULSE 74–98; RESP 15–34; TEMP 36.3–37.2; O2SAT 93–100
[2020-10-13 04:41] LABS: Absolute Lymphocyte Count 0.44 X10^3/uL (0.83-4.51); Absolute Neutrophil Count 4.2 X10^3/uL (2.0-7.7); Hematocrit 30.7 % (37-47); Hemoglobin 8.9 g/dL (12.0-15.0); Lymphocyte # 0.44 X10^3/ul (0.83-4.51); Mean Corpuscular Hgb 25.1 pg (27.0-32.0); Mean Corpuscular Volume 86.5 fL (81-99); Mean Platelet Vol. 8.7 fl (6.2-12.0); Monocyte# 0.24 X10^3/uL; Monocyte% 4.9 % (0-10); NRBC Flagged by Analyzer 0.4 % (0-5); Neutrophil # 4.15 X10^3/uL (2.7-7.7); Neutrophil % 85.1 % (47-70); POSITIVE DIFFERENTIAL YES; Platelet Count 268 K/mm3 (150-450); RBC Distribution Width CV 17.2 % (11.6-14.6); RBC Distribution Width SD 54.6 fl (35.1-43.9); Red Blood Count 3.55 M/mm3 (4.2-5.4); White Blood Count 4.9 K/mm3 (4.4-11.0)
[2020-10-13 04:48] LABS: Differential Indicated SCAN CRITERIA MET
[2020-10-13 05:05] LABS: ALB/GLOB Ratio 0.3 RATIO (0.9-2.4); AST(SGOT) 38 U/L (15-37); Alanine Aminotransfer ALT/SGPT 26 U/L (13-56); Albumin, Serum 2.3 g/dL (3.2-5.0); Alkaline Phosphatase 113 U/L (45-117); Anion Gap 3 (5-15); BUN 10 mg/dL (7-18); BUN/Creat Ratio 14.5 RATIO (10-20); Calcium,Total 8.7 mg/dL (8.5-10.1); Chloride 97 mmol/L (98-107); Creatinine, Serum 0.69 mg/dL (0.55-1.02); EST Glomerular Filtration Rate 98 mL/min (>60); Est Glom Filt Rate - Afr Amer 119 mL/min (>60); Estimated Creatinine Clearance 98.42 ml/min; Globulin 6.6 g/dL (2.2-4.2); Glucose 131 mg/dL (74-106); Magnesium 2.4 mg/dL (1.6-2.6); Potassium 4.4 mmol/L (3.5-5.1); Protein, Total 8.9 g/dL (6.4-8.2); Sodium Level 136 mmol/L (136-145)
--- NOTE | 2020-10-13 05:28 | EX.PCM.CONCC ---
Assessment & Plan Assessment/Plan (1) COVID-19 virus infection: PLAN: RECOMMENDATIONS: 1. Wean supplemental oxygen to maintain saturations at or above 90%. 2. Encourage incentive spirometer use and mobilize patient as tolerated. 3. Continue remdesivir as ordered. Monitor liver and renal function accordingly. 4. Continue Decadron to complete 10-day treatment course. 5. Continue appropriate prophylaxis. 6. The patient is medically stable for transfer out of the intensive care unit. IMPRESSIONS: 1. Acute hypoxemic respiratory failure secondary to COVID-19 pneumonia The patient initially presented with hypoxemia and shortness of breath and was found to be positive for coronavirus on rapid antigen testing. She is currently being maintained on appropriate therapy with remdesivir and Decadron. The patient's oxygenation status is stable. She is currently maintaining appropriate saturations on 2 to 3 L of supplemental oxygen via nasal cannula. Agree with continuing Lovenox for prophylaxis. Encourage incentive spirometer use. Wean supplemental oxygen to maintain saturations at or above 90%. Mobilize patient as tolerated. 2. Suspected sleep apnea/alveolar hypoventilation The patient did present with an elevated bicarbonate. This is likely chronic for the patient. Although she does report having had a sleep study done previously, she reported that she was told that she did not have sleep apnea. I highly doubt that the patient does not have some form of sleep apnea, based upon her body habitus. It is certainly reasonable to place the patient empirically on BiPAP therapy on a nightly basis, if she is agreeable. 3. Super morbid obesity/anemia/self-reported asthma/recent diagnosis of cellulitis/neuropathy Complicates care, management, recovery and prognosis. Continue home medications as indicated. This note was generated with [employer] dictation software. It may contain incorrect words, spelling, and punctuation that were not noted in checking the note before signing. HPI Consult Data Date of Consult: 10/13/20 HPI Narrative Reason for Consultation: COVID-19 pneumonia HPI Narrative: The patient is a 44-year-old female, with a history as outlined below, who presented to the emergency department on October 12 with complaints of progressive dyspnea and cough productive of clear mucus. The patient reported that she was hospitalized last week through [facility] for several days and treated for cellulitis. She was discharged home this past Friday. She did report that her symptoms initially began during her hospitalization last week. The patient does have a self-reported history of asthma but is not on any maintenance inhalers. She also reports having been tested for sleep apnea previously, but was reportedly told that she did not have obstructive sleep apnea. On presentation to the emergency department, the patient was noted to be afebrile and hemodynamically stable. She was, nevertheless tachycardic and tachypneic. Initial laboratory evaluation revealed a normal white blood cell count. The patient was anemic with a hemoglobin of 8.5 g/dL. Coagulation profile revealed an INR of 1.2. Chemistry profile was notable for a bicarbonate of 33, along with normal renal and liver function. Chest x-ray demonstrated bilateral groundglass airspace disease. Lower extremity Doppler study was performed and found to be negative. The patient was subsequently started on remdesivir and Decadron. She was admitted to the hospital for further management. [facility] Medical History (Updated 10/12/20 @ 17:41 by Dagmar Mcdonald) Asthma BMI 70 and over, adult Cancer Chronic pain Crohn disease DVT (deep venous thrombosis) Carole-Danlos syndrome GERD (gastroesophageal reflux disease) Hearing loss, left Hearing loss, right Irregular heart beat Kidney stones Lumbar spondylosis Lymphedema Migraines Non-smoker Obesity Renal atrophy Rheumatoid arthritis Splenomegaly T-cell lymphoma Home Medications acetaminophen [Tylenol Arthritis] 1,300 mg PO Q12H 10/02/20 [History Last Taken 10/11/20] albuterol sulfate 1 inh INHALATION Q6H PRN 10/02/20 [History Last Taken 10/12/20] ciclesonide 1 puff INHALATION BID 10/02/20 [History Last Taken 10/12/20] duloxetine 20 mg PO BID 10/02/20 [History Last Taken 10/11/20] furosemide 40 mg PO DAILY 10/02/20 [History Last Taken 10/11/20] gabapentin 300 mg PO TID PRN 10/02/20 [History Last Taken 10/01/20] [id number]-jamie-bosw [Osteo Bi-Flex Triple Strength] 1 tab PO BID 10/02/20 [History Last Taken 10/11/20] ibuprofen 400 mg PO DAILY PRN 10/02/20 [History Last Taken 1 Week Ago ~10/05/20] montelukast 10 mg PO QHS 10/02/20 [History Last Taken 10/11/20] doxycycline hyclate 100 mg PO DAILY 10/12/20 [History Last Taken 10/11/20] Allergy/AdvReac Type Severity Reaction Status Date / Time Nitrate Analogues Allergy Unknown Other Verified 10/02/20 12:45 adhesive tape Allergy Rash Verified 10/02/20 12:45 aspirin Allergy Angioedema Verified 10/02/20 12:45 benzonatate Allergy Shortness Verified 10/02/20 12:45 of breath cephalexin Allergy Rash Verified 10/02/20 12:45 coconut oil Allergy Other Verified 10/02/20 12:45 copper Allergy Other Verified 10/02/20 12:45 formaldehyde Allergy Anaphylaxis Verified 10/02/20 12:45 Iodine and Iodide Containing Allergy Anaphylaxis Verified 10/02/20 12:45 Produc latex Allergy Anaphylaxis Verified 10/02/20 12:45 mold Allergy Anaphylaxis Verified 10/02/20 12:45 nickel Allergy Rash Verified 10/02/20 12:45 nitrofurantoin Allergy Anaphylaxis Verified 10/02/20 12:45 palm oil Allergy Other Verified 10/02/20 12:45 Penicillins Allergy Rash Verified 10/02/20 12:45 soy Allergy Other Verified 10/02/20 12:45 Sulfa (Sulfonamide Allergy Rash Verified 10/02/20 12:45 Antibiotics) topiramate Allergy Other Verified 10/02/20 12:45 aspartame AdvReac Other Verified 10/02/20 12:45 lactose AdvReac Nausea Verified 10/02/20 12:45 morphine AdvReac Other Verified 10/02/20 12:45 eggs Allergy Rash Uncoded 10/02/20 12:45 gold Allergy Rash Uncoded 10/02/20 12:45 Social History Smoking Status: Never smoker ROS Constitutional Constitutional: Reports fatigue and malaise Eyes Eyes: Denies blurry vision or change in vision ENT HEENT: Denies dizziness, headache(s), hoarseness or nasal discharge Cardiovascular Cardiovascular: Reports dyspnea; Denies chest pain Respiratory/Chest Respiratory/Chest: Reports cough and dyspnea Gastrointestinal Gastrointestinal: Denies abdominal pain, diarrhea, nausea or vomiting Genitourinary Genitourinary: Denies difficulty urinating Musculoskeletal Musculoskeletal: Denies arthralgias or back pain Integumentary Integumentary: Denies lesions Neurologic Neurologic: Denies abnormal gait, abnormal speech or confusion Psychiatric Psychiatric: Denies anxiety or depression Endocrine Endocrinology: Reports fatigue Hematologic/Lymphatic Hematologic/Lymphatic: Denies easy bleeding or easy bruising Physical Exam Const alert, oriented x3 and no apparent distress General Appearance: cooperative Nutritional Appearance: morbidly obese HEENT normocephalic, head/scalp atraumatic and moist oral mucous membranes Eyes PERRL, EOMs intact bilaterally and conjunctivae normal Neck supple General: trachea midline Resp normal respiratory effort Auscultation: diminished lung sounds; Negative for rales, rhonchi or wheezes Cardio regular rate and regular rhythm GI normal to inspection, nondistended, normoactive bowel sounds Extremity General Extremity: edema bilateral lower extremity Skin General Skin Exam: erythema Neuro oriented x3, CN's II-XII intact bilaterally, moves all extremities and no focal motor deficits Psych cooperative and affect normal Lab / Micro Data Result Diagrams: 10/13/20 04:40 10/13/20 04:40 Labs: Laboratory Results - last 24 hr 10/12/20 14:20: WBC 5.8, RBC 3.46 L, Hgb 8.5 L, Hct 29.6 L, MCV 85.5, MCH 24.6 L, MCHC 28.7 L, RDW Std Deviation 54.1 H, RDW Coeff of Fanny 17.4 H, Plt Count 262, MPV 8.8, Immature Gran % (Auto) 1.000 H, Neut % (Auto) 80.6 H, Lymph % (Auto) 12.6 L, [place] % (Auto) 5.4, Eos % (Auto) 0.2, Baso % (Auto) 0.2, Absolute Neuts (auto) 4.7, Absolute Lymphs (auto) 0.73 L, Nucleated RBC % 0.3 10/12/20 14:20: Sodium 135 L, Potassium 3.9, Chloride 95 L, Carbon Dioxide 34.0 H, Anion Gap 6, BUN 9, Creatinine 0.72, Estim Creat Clear Calc 94.31, Est GFR (MDRD) Af Amer 113, Est GFR (MDRD) Non-Af 94, BUN/Creatinine Ratio 12.5, Glucose 94, Calcium 8.1 L, Troponin I High Sens 5.0 10/12/20 14:20: B-Natriuretic Peptide 2.2 10/12/20 14:20: Lactic Acid 1.0 10/12/20 18:10: Fibrinogen 783 H 10/12/20 18:10: Sodium 133 L, Potassium 4.1, Chloride 96 L, Carbon Dioxide 33.0 H, Anion Gap 4 L, BUN 9, Creatinine 0.74, Estim Creat Clear Calc 91.77, Est GFR (MDRD) Af Amer 110, Est GFR (MDRD) Non-Af 91, BUN/Creatinine Ratio 12.2, Glucose 104, Calcium 8.3 L, Total Bilirubin 0.30, Direct Bilirubin 0.14, AST 43 H, ALT 27, Alkaline Phosphatase 116, Lactate Dehydrogenase 244, Total Creatine Kinase 29, Troponin I High Sens 5.2, C-React Prot Ext Range 216.00 H, Total Protein 9.0 H, Albumin 2.2 L, Globulin 6.8 H, Albumin/Globulin Ratio 0.3 L 10/12/20 18:10: Lactic Acid 1.3 10/12/20 18:10: B-Natriuretic Peptide < 2.0 10/12/20 18:10: Procalcitonin 0.13 H 10/13/20 04:40: WBC 4.9, RBC 3.55 L, Hgb 8.9 L, Hct 30.7 L, MCV 86.5, MCH 25.1 L, MCHC 29.0 L, RDW Std Deviation 54.6 H, RDW Coeff of Fanny 17.2 H, Plt Count 268, MPV 8.7, Immature Gran % (Auto) 1.000 H, Neut % (Auto) 85.1 H, Lymph % (Auto) 9.0 L, [place] % (Auto) 4.9, Eos % (Auto) 0.0, Baso % (Auto) 0.0, Absolute Neuts (auto) 4.2, Absolute Lymphs (auto) 0.44 L, Nucleated RBC % 0.4 10/13/20 04:40: Sodium 136, Potassium 4.4, Chloride 97 L, Carbon Dioxide 36.0 H, Anion Gap 3 L, BUN 10, Creatinine 0.69, Estim Creat Clear Calc 98.42, Est GFR (MDRD) Af Amer 119, Est GFR (MDRD) Non-Af 98, BUN/Creatinine Ratio 14.5, Glucose 131 H, Calcium 8.7, Magnesium 2.4, Total Bilirubin 0.30, AST 38 H, ALT 26, Alkaline Phosphatase 113, Total Protein 8.9 H, Albumin 2.3 L, Globulin 6.6 H, Albumin/Globulin Ratio 0.3 L Micro: Microbiology 10/12/20 14:40 Mucosa - Nose SARS-CoV-2 Antigen (Rapid) - Final SARS-CoV-2 (COVID 19) Rhythm Strip Rhythm Strip: Sinus Tach Rate: 104 Ectopy: None Radiology Impression Chest X-Ray 10/12/20 14:32 IMPRESSION: Bilateral airspace disease with peripheral consolidation suspicious for pneumonia including atypical or viral pneumonia. at 1524 Reported and signed by: Quinn Sarah MD Electronically Signed: Quinn Sarah MD at 15:23 EDT Tel , Service support , Venous Doppler Study 10/12/20 14:37 Interpretation Summary Deep veins of the lower extremities are bilaterally patent and compressible segmentally. There is no evidence of deep vein thrombosis on either side. The great saphenous veins appear bilaterally patent and compressible segmentally. Ordering Physician: Renate Lancaster Performed By: Porfirio Steele, RVT Charges/Coding Visit Charges Inpatient E&M: 56697 Init Hosp L3
--- NOTE | 2020-10-13 07:11 | PN.HOSP_ITS ---
Subjective Subjective Patient was monitored in the intensive care unit overnight she did remain relatively stable plan is to transfer to regular nursing floor Objective Data Objective Data Vital Signs: Vital Signs Temp Pulse Resp BP Pulse Ox 98.3 F 88 20 H 110/66 96 10/13/20 04:00 10/13/20 06:00 10/13/20 06:00 10/13/20 06:00 10/13/20 06:00 Oxygen Flow Rate (L/min) 3 Oxygen Delivery Method Nasal Cannula Weight: 203.7 kg Body Mass Index (BMI) 72.8 Intake & Output: Intake and Output for Last 24 Hours 10/11/20 10/12/20 10/13/20 23:59 23:59 23:59 Intake Total 482.75 / 722.75 580 / 580 Balance 482.75 / 722.75 580 / 580 Lab / Micro Data Result Diagrams: 10/13/20 04:40 10/13/20 04:40 Labs: Laboratory Results - last 24 hr 10/12/20 14:20: WBC 5.8, RBC 3.46 L, Hgb 8.5 L, Hct 29.6 L, MCV 85.5, MCH 24.6 L , MCHC 28.7 L, RDW Std Deviation 54.1 H, RDW Coeff of Fanny 17.4 H, Plt Count 262, MPV 8.8, Immature Gran % (Auto) 1.000 H, Neut % (Auto) 80.6 H, Lymph % (Auto) 12.6 L, [place] % (Auto) 5.4, Eos % (Auto) 0.2, Baso % (Auto) 0.2, Absolute Neuts (auto) 4.7, Absolute Lymphs (auto) 0.73 L, Nucleated RBC % 0.3 10/12/20 14:20: Sodium 135 L, Potassium 3.9, Chloride 95 L, Carbon Dioxide 34.0 H, Anion Gap 6, BUN 9, Creatinine 0.72, Estim Creat Clear Calc 94.31, Est GFR (MDRD) Af Amer 113, Est GFR (MDRD) Non-Af 94, BUN/Creatinine Ratio 12.5, Glucose 94, Calcium 8.1 L, Troponin I High Sens 5.0 10/12/20 14:20: B-Natriuretic Peptide 2.2 10/12/20 14:20: Lactic Acid 1.0 10/12/20 18:10: Fibrinogen 783 H 10/12/20 18:10: Sodium 133 L, Potassium 4.1, Chloride 96 L, Carbon Dioxide 33.0 H, Anion Gap 4 L, BUN 9, Creatinine 0.74, Estim Creat Clear Calc 91.77, Est GFR (MDRD) Af Amer 110, Est GFR (MDRD) Non-Af 91, BUN/Creatinine Ratio 12.2, Glucose 104, Calcium 8.3 L, Total Bilirubin 0.30, Direct Bilirubin 0.14, AST 43 H, ALT 27, Alkaline Phosphatase 116, Lactate Dehydrogenase 244, Total Creatine Kinase 29, Troponin I High Sens 5.2, C-React Prot Ext Range 216.00 H, Total Protein 9.0 H, Albumin 2.2 L, Globulin 6.8 H, Albumin/Globulin Ratio 0.3 L 10/12/20 18:10: Lactic Acid 1.3 10/12/20 18:10: B-Natriuretic Peptide < 2.0 10/12/20 18:10: Procalcitonin 0.13 H 10/13/20 04:40: WBC 4.9, RBC 3.55 L, Hgb 8.9 L, Hct 30.7 L, MCV 86.5, MCH 25.1 L , MCHC 29.0 L, RDW Std Deviation 54.6 H, RDW Coeff of Fanny 17.2 H, Plt Count 268, MPV 8.7, Immature Gran % (Auto) 1.000 H, Neut % (Auto) 85.1 H, Lymph % (Auto) 9.0 L, [place] % (Auto) 4.9, Eos % (Auto) 0.0, Baso % (Auto) 0.0, Absolute Neuts (auto) 4.2, Absolute Lymphs (auto) 0.44 L, Nucleated RBC % 0.4 10/13/20 04:40: Sodium 136, Potassium 4.4, Chloride 97 L, Carbon Dioxide 36.0 H, Anion Gap 3 L, BUN 10, Creatinine 0.69, Estim Creat Clear Calc 98.42, Est GFR (MDRD) Af Amer 119, Est GFR (MDRD) Non-Af 98, BUN/Creatinine Ratio 14.5, Glucose 131 H, Calcium 8.7, Magnesium 2.4, Total Bilirubin 0.30, AST 38 H, ALT 26, Alkaline Phosphatase 113, Total Protein 8.9 H, Albumin 2.3 L, Globulin 6.6 H, Albumin/Globulin Ratio 0.3 L Micro: Microbiology 10/12/20 14:40 Mucosa - Nose SARS-CoV-2 Antigen (Rapid) - Final SARS-CoV-2 (COVID 19) Radiography Diagnostic Testing: Radiology Impression Chest X-Ray 10/12/20 14:32 IMPRESSION: Bilateral airspace disease with peripheral consolidation suspicious for pneumonia including atypical or viral pneumonia. at 1524 Reported and signed by: Quinn Sarah MD Electronically Signed: Quinn Sarah MD at 15:23 EDT Tel , Service support , Venous Doppler Study 10/12/20 14:37 Interpretation Summary Deep veins of the lower extremities are bilaterally patent and compressible segmentally. There is no evidence of deep vein thrombosis on either side. The great saphenous veins appear bilaterally patent and compressible segmentally. Ordering Physician: Renate Lancaster Performed By: Porfirio Steele, RVT Rhythm Strip Rhythm Strip: Sinus Tach Rate: 104 Ectopy: None Physical Exam Narrative GENERAL: Patient appears ill looking HEENT: Atraumatic; EYES; Anicteric, Normal Conjunctiva NECK; supple, normal thyroid, RESPIRATORY: Diminished to auscultation CARDIOVASCULAR: Regular S1 S2, tachycardic GI: soft, normoactive bowel sounds, : No Renal angle tenderness; EXTREMITIES: No edema, no clubbing, MUSCULOSKELETAL: no muscle waisting NEURO: Awake; no lateralizing signs. SKIN: Area of erythema and warmth involving the right medial thigh PSYCH; Flat affect Assessment & Plan Assessment/Plan (1) Cellulitis: (2) COVID-19 virus infection: (3) Hypoxia: (4) Sepsis: (5) BMI 70 and over, adult: PLAN: Patient is a 44-year-old lady presenting with shortness of breath 1. Acute hypoxic respiratory failure ?Secondary to SARS-CoV-2 pneumonia. Patient has been admitted to the intensive care unit managed with supplemental oxygen, incentive spirometry,. Patient was placed under contact and droplet isolation. Was started on Decadron and remdesivir with consultation placed to both pulmonary medicine as well as infectious disease -10/13/2020;Patient was monitored in the intensive care unit overnight she did remain relatively stable plan is to transfer to regular nursing floor 2. Sepsis ?Secondary to SARS-CoV-2 pneumonia management as discussed above 3. Recent admission for cellulitis involving the right lower extremity ?Patient still has significant erythema patient is on doxycycline did continue 4. Anemia -Patient hemoglobin on admission was 8.5. This is thought to be secondary to chronic disorder monitoring H&H and transfuse if patient becomes symptomatic or hemoglobin falls below 7 5. Generalized osteoarthritis ?Patient is on acetaminophen did continue 6. Morbid obesity - With a BMI of 73.6 this obviously complicates patient's care. Patient was counseled on weight reduction 7. DVT prophylaxis - On enoxaparin Charges/Coding Visit Charges Inpatient E&M: 02746 Subs Hosp L2
[2020-10-13] MEDS: 0.9% Saline Lock 10 ML Syringe IV (10:13)
[2020-10-13] MEDS: Enoxaparin 40 MG/0.4 ML Syringe SC ×2 (10:14→22:04)
[2020-10-13] MEDS: Furosemide 40 MG Tablet PO (10:14)
[2020-10-13] MEDS: Doxycycline 100 MG CAPSULE PO (10:14)
[2020-10-13] MEDS: DULoxetine Hcl 20 MG Capsule PO ×2 (10:14→22:03)
[2020-10-13] MEDS: dexAMETHasone 10 MG/ML Vial 6 MG IV (10:21)
[2020-10-13] MEDS: Famotidine 20 MG Tablet PO ×2 (10:21→22:03)
--- NOTE | 2020-10-13 10:48 | CASEMGMT ---
Addendum entered by Suma Spicer 10/13/20 11:35: SW spoke w/[facility] [employer] [facility]. Pt had a referral in November, and pt needed to private pay $4.25/meal, and pay two weeks ahead of time. Pt did not prepay so the meals were not delivered. SW called pt, gave her this information. She is not sure if she wants MOW or not. SW will give RN information for MOW to bring in to pt. Pt also states her 15 year old is very sick and she thinks she has COVID, thinks she needs to be hospitalized, asked SW what to do. SW advised her to call the deposition operator, will check to see other options. The 15 year old is home w/her grandmother, older sister and younger brother. SW suggested the grandmother take pt to get tested, pt states the grandmother does not seem concerned. SW explained if she is truly concerned for her daughter's health to then call 911. Pt states she was thinking she may do this. SW called the retail warehouse associate, daughter could be brought to the ER or to Urgent Care to get tested. As far as he knows, we are not admitting children to this hospital with COVID however. SW called pt back and let her know this information, but also again advised to call the deposition operator to see what the deposition operator recommends. Pt states understanding. RUSLAN Lew Original Note: SW informed by CM that pt tried to get [facility] and they were not able to find her apartment, then told her she could not get [facility] [employer] [facility]. SW called [facility], message left to call this SW back or if they are not able to call SW back today, to call pt directly as she will likely be discharged on the weekend home. RUSLAN Lew
--- NOTE | 2020-10-13 10:54 | CASEMGMT ---
Addendum entered by Poly Allison 10/13/20 14:19: Call placed back to Amber Rosas CM for [facility]. She was made aware attempts at setting up HHC for pt was unsuccessful, that pt is aware and that plan is now for pt to do OP therapy once she is out of COVID precautions. She states she will continue to look into other options of HHC for pt. Addendum entered by Poly Allison 10/13/20 14:00: Per Geno @ [facility], they are not in network w/pt's insurance. Spoke w/[facility]--they state they do not have the staffing and per [facility], [facility] is out of their service area. Call placed to pt in her room. She was made aware RN KATHIE has been unsuccessful w/finding HHC agency that is able to accept her. She voices appreciation for attempting to set HHC up. She states she feels she will be safe when she returns home without having HHC and is interested in doing OP therapy after she is out of quarantine for COVID. Pt has transferred to [facility]. Marci MONTOYA CM on [facility], made aware pt would like script for OP therapy. Script for Bariatric Rollator obtained from Dr Shoemaker and faxed to [facility]. They were notified pt has been transferred to [facility] and anticipate pt will discharge home over the w/e. They plan to deliver rollator to pt's room today. Addendum entered by Poly Allison 10/13/20 12:17: Per [facility], they do not have staffing and are unable to accept pt. Addendum entered by Poly Allison 10/13/20 12:03: Per Tiffanie @ [facility], they are unable to accept pt d/t staffing. Addendum entered by Poly Allison 10/13/20 11:23: [facility] and [facility] both on list of HHC provider list and referral made w/both of them. Per Radha Calzada @ [facility] and Ti @ [facility], they are not in network w/[facility]. [facility]. Referral packet faxed to [facility], [facility], and [facility]. JAN VÁZQUEZ spoke w/[facility]. She states pt's CM is Amber Rosas: PH: [phone]. Call placed to Amber and she was notified pt has been admitted to [facility] and discussed pt's stated needs of a medical alert button, different shower chair/tub bench, lift chair, and rollator. She states this has been an on-going issue and they have been trying to assist pt w/getting established w/a PCP. Amber was informed, that per pt, she is now established w/Dr Dietz. Amber informed JAN VÁZQUEZ is working on getting [facility] set up and on getting a rollator for pt. Addendum entered by Poly Allison 10/13/20 11:13: Pt states she has a CM through [facility] who is working on getting her a medical alert button. She states she also recently signed up for [facility] but states, they did not show up. She states she called them and they told her they could not find her apartment. She is still interested in receiving [facility] [employer] [facility]. NICOLE Moise, made aware of above. Original Note: RN CM [employer]ET[employer] CM to room to meet with patient for initial transition planning/care coordination assessment. JAN VÁZQUEZ introduced self and role at [facility]. Pt voices understanding and consents to assessment at this time. Pt sitting up in chair in room in no distress at this time. Pt is A/O at this time and answers all questions appropriately. Care providers, pharmacy, and demographics verified/updated at this time. PCP: Dr Dietz Specialists:Pt states Dr Dietz just started process/referral for pt to see someone for her lymphedema and oncology Preferred Pharmacy: [facility] Insurance: [facility] Prescription Benefit: Yes Living Will/HPOA: Yes, states she has both. Her daughter, Veena Self, is her POA LNOK: Daughter, Veena Living Arrangements: Lives in an apt w/her 2 children, ages 13 and 15. Dtr, Veena, lives in downstairs apt in same complex. Dtr assists her w/bathing/dressing and home tasks: cooking/meals, laundry, cleaning. Transportation: Pt states drives self and states no transportation concerns at this time. DME: States has the following DME: rails/grab bars, hand held shower, lift chair, cane, nebulizer. Pt does not have Home O2. Pt was borrowing her mothers pulse ox prior to coming to the hospital, but states she is not sure it is accurate. JAN VÁZQUEZ encouraged her to get a new one, if the one she is borrowing is not working right. Pt states the lift chair she has is old and is making a noise and states is interested in getting a new one. JAN VÁZQUEZ informed her that insurance typically only covers the mechanical part of lift chairs, if any, and to discuss this w/her PCP. She also inquired states she has an extended tub bench, but it does not fit right in her shower. JAN VÁZQUEZ informed her, when therapy comes out to evaluate her w/HHC, they can assess what size/correct shower chair/tub bench would be appropriate. Pt aware she may need Home O2 @ discharge and she is also requesting a new rollator, stating the one she had is broken. Pt was provided with list of DME providers consistent with the patient's preferred geographic region, medical needs, and insurance network. The pt states does not have a preference. Aware Nina is an affiliate of [facility] and she is agreeable w/Nina. HHC/SNF: No hx of SNF. Had HHC in the past when she lived in [place]. Pt wishes to return home and would like HHC. Pt was provided with list of HHC providers including quality and resource use data and consistent with the patient's preferred geographic region, medical needs, and insurance network. The pt's states she does not have preference. CM to follow for home oxygen needs and any further discharge planning/needs. Pt voices no further concerns/needs at this time. Advised pt to ask for CM if any further questions/concerns/needs arise. Voices understanding. PLAN: Home w/HHC. CM to follow for any Home O2 needs @ discharge. Shira SMITH RN, CM
--- NOTE | 2020-10-13 14:49 | CASEMGMT ---
RN CM received script for outpt therapy, put on chart with green sheet. Notified Pattie nurse and requested she put in her handoff to make sure pt is given script on dc.
--- NOTE | 2020-10-13 17:10 | PCM.CONS.GEN ---
Assessment & Plan Assessment/Plan (1) Cellulitis: (2) COVID-19 virus infection: PLAN: Sx started around 10/05. Quarantine for 20 days. 10 days of dex, will change to po. Cont remdesivr with daily labs. Recommended family be tested for covid. RLE doing well, will stop doxy as planned today. Will follow, thank you (3) Hypoxia: (4) BMI 70 and over, adult: HPI Consult Data Date of Consult: 10/13/20 HPI Narrative HPI Narrative: HELGA JENSEN, is a 44 F who presented to ED with fever, cough, headache, dyspnea, fatigue, change in taste. Sx started with some cough and congestion about a week ago while admitted to [facility] with RLE cellulitis. Sx worsened after being discharged home on po doxy. Leg much improved. Has not bee vaccinated due to allergies. Daughter at home is also ill, has not been tested. Came to ED, admitted on dex and remdesivir. Feeling better today. Full ROS performed and neg except as noted above. ON LICENSE OF [facility] Medical History Asthma BMI 70 and over, adult Cancer Chronic pain Crohn disease DVT (deep venous thrombosis) Carole-Danlos syndrome GERD (gastroesophageal reflux disease) Hearing loss, left Hearing loss, right Irregular heart beat Kidney stones Lumbar spondylosis Lymphedema Migraines Non-smoker Obesity Renal atrophy Rheumatoid arthritis Splenomegaly T-cell lymphoma Home Medications acetaminophen [Tylenol Arthritis] 1,300 mg PO Q12H 10/02/20 [History Last Taken 10/11/20] albuterol sulfate 1 inh INHALATION Q6H PRN 10/02/20 [History Last Taken 10/12/20] ciclesonide 1 puff INHALATION BID 10/02/20 [History Last Taken 10/12/20] duloxetine 20 mg PO BID 10/02/20 [History Last Taken 10/11/20] furosemide 40 mg PO DAILY 10/02/20 [History Last Taken 10/11/20] gabapentin 300 mg PO TID PRN 10/02/20 [History Last Taken 10/01/20] [id number] [Osteo Bi-Flex Triple Strength] 1 tab PO BID 10/02/20 [History Last Taken 10/11/20] ibuprofen 400 mg PO DAILY PRN 10/02/20 [History Last Taken 1 Week Ago ~10/05/20] montelukast 10 mg PO QHS 10/02/20 [History Last Taken 10/11/20] doxycycline hyclate 100 mg PO DAILY 10/12/20 [History Last Taken 10/11/20] Allergy/AdvReac Type Severity Reaction Status Date / Time Nitrate Analogues Allergy Unknown Other Verified 10/02/20 12:45 adhesive tape Allergy Rash Verified 10/02/20 12:45 aspirin Allergy Angioedema Verified 10/02/20 12:45 benzonatate Allergy Shortness Verified 10/02/20 12:45 of breath cephalexin Allergy Rash Verified 10/02/20 12:45 coconut oil Allergy Other Verified 10/02/20 12:45 copper Allergy Other Verified 10/02/20 12:45 formaldehyde Allergy Anaphylaxis Verified 10/02/20 12:45 Iodine and Iodide Containing Allergy Anaphylaxis Verified 10/02/20 12:45 Produc latex Allergy Anaphylaxis Verified 10/02/20 12:45 mold Allergy Anaphylaxis Verified 10/02/20 12:45 nickel Allergy Rash Verified 10/02/20 12:45 nitrofurantoin Allergy Anaphylaxis Verified 10/02/20 12:45 palm oil Allergy Other Verified 10/02/20 12:45 Penicillins Allergy Rash Verified 10/02/20 12:45 soy Allergy Other Verified 10/02/20 12:45 Sulfa (Sulfonamide Allergy Rash Verified 10/02/20 12:45 Antibiotics) topiramate Allergy Other Verified 10/02/20 12:45 aspartame AdvReac Other Verified 10/02/20 12:45 lactose AdvReac Nausea Verified 10/02/20 12:45 morphine AdvReac Other Verified 10/02/20 12:45 eggs Allergy Rash Uncoded 10/02/20 12:45 gold Allergy Rash Uncoded 10/02/20 12:45 Social History Smoking Status: Never smoker Physical Exam Const alert, oriented x3 and no apparent distress HEENT head/scalp atraumatic Eyes PERRL and EOMs intact bilaterally Neck supple and No nodes Resp Auscultation: diminished lung sounds Cardio regular rate and regular rhythm GI normal to inspection, nondistended, normoactive bowel sounds Extremity General Extremity: edema Skin no rashes or lesions noted Neuro CN's II-XII intact bilaterally Medical Records Data Medical Nutrition Assessment Dietitian: Nutrition Therapy Diagnosis Start: 10/13/20 08:24 Freq: Status: Active Protocol: Document 10/13/20 08:51 HUA (Rec: 10/13/20 08:51 SLA [id number]) Nutrition Malnutrition Evidence of Malnutrition Exists No Clinical Problem Unintended Weight Gain Etiology related to limited mobility and issues w/ lymphedema Signs/Symptoms as evidenced by 9% wt gain in past several months and BMI > 70 Status Active Problem Altered Nutrient-Related Laboratory Values Etiology related to steroid use Signs/Symptoms as evidenced by gluc 131 Status Active Problem Recommendation Dietitian Recommendations/Changes Will continue liberal Regular diet per pt preference Lab / Micro Data Result Diagrams: 10/13/20 04:40 10/13/20 04:40 Labs: Laboratory Results - last 24 hr 10/12/20 18:10: Fibrinogen 783 H 10/12/20 18:10: Sodium 133 L, Potassium 4.1, Chloride 96 L, Carbon Dioxide 33.0 H, Anion Gap 4 L, BUN 9, Creatinine 0.74, Estim Creat Clear Calc 91.77, Est GFR (MDRD) Af Amer 110, Est GFR (MDRD) Non-Af 91, BUN/Creatinine Ratio 12.2, Glucose 104, Calcium 8.3 L, Total Bilirubin 0.30, Direct Bilirubin 0.14, AST 43 H, ALT 27, Alkaline Phosphatase 116, Lactate Dehydrogenase 244, Total Creatine Kinase 29, Troponin I High Sens 5.2, C-React Prot Ext Range 216.00 H, Total Protein 9.0 H, Albumin 2.2 L, Globulin 6.8 H, Albumin/Globulin Ratio 0.3 L 10/12/20 18:10: Lactic Acid 1.3 10/12/20 18:10: B-Natriuretic Peptide < 2.0 10/12/20 18:10: Procalcitonin 0.13 H 10/13/20 04:40: WBC 4.9, RBC 3.55 L, Hgb 8.9 L, Hct 30.7 L, MCV 86.5, MCH 25.1 L, MCHC 29.0 L, RDW Std Deviation 54.6 H, RDW Coeff of Fanny 17.2 H, Plt Count 268, MPV 8.7, Immature Gran % (Auto) 1.000 H, Neut % (Auto) 85.1 H, Lymph % (Auto) 9.0 L, [place] % (Auto) 4.9, Eos % (Auto) 0.0, Baso % (Auto) 0.0, Absolute Neuts (auto) 4.2, Absolute Lymphs (auto) 0.44 L, Nucleated RBC % 0.4 10/13/20 04:40: Sodium 136, Potassium 4.4, Chloride 97 L, Carbon Dioxide 36.0 H, Anion Gap 3 L, BUN 10, Creatinine 0.69, Estim Creat Clear Calc 98.42, Est GFR (MDRD) Af Amer 119, Est GFR (MDRD) Non-Af 98, BUN/Creatinine Ratio 14.5, Glucose 131 H, Calcium 8.7, Magnesium 2.4, Total Bilirubin 0.30, AST 38 H, ALT 26, Alkaline Phosphatase 113, Total Protein 8.9 H, Albumin 2.3 L, Globulin 6.6 H, Albumin/Globulin Ratio 0.3 L Micro: Microbiology 10/13/20 10:25 Sputum, Expectorated/Coughed Gram Stain - Final 10/12/20 14:40 Mucosa - Nose SARS-CoV-2 Antigen (Rapid) - Final SARS-CoV-2 (COVID 19) Rhythm Strip Rhythm Strip: Sinus Tach Rate: 104 Ectopy: None Radiology Impression Venous Doppler Study 10/12/20 14:37 Interpretation Summary Deep veins of the lower extremities are bilaterally patent and compressible segmentally. There is no evidence of deep vein thrombosis on either side. The great saphenous veins appear bilaterally patent and compressible segmentally. Ordering Physician: Renate Lancaster Performed By: Porfirio Steele RVT
[2020-10-13] MEDS: Montelukast 10 MG Tablet PO (22:03)
[2020-10-13] MEDS: Ibuprofen 400 MG Tablet PO (22:17)
[2020-10-14] VITALS (10 sets, daily range): BP systolic 123–142; BP diastolic 66–91; PULSE 68–90; RESP 18–24; TEMP 36.3–36.7; O2SAT 78–97
--- NOTE | 2020-10-14 06:34 | PN.CC_ITS ---
Assessment & Plan Assessment/Plan (1) COVID-19 virus infection: PLAN: RECOMMENDATIONS: 1. Wean supplemental oxygen to maintain saturations at or above 90%. 2. Encourage incentive spirometer use and mobilize patient as tolerated. 3. Continue remdesivir as ordered. Monitor liver and renal function accordingly. 4. Continue Decadron to complete 10-day treatment course. 5. Continue appropriate prophylaxis. IMPRESSIONS: 1. Acute hypoxemic respiratory failure secondary to COVID-19 pneumonia The patient initially presented with hypoxemia and shortness of breath and was found to be positive for coronavirus on rapid antigen testing. She is currently being maintained on appropriate therapy with remdesivir and Decadron. The patient's oxygenation status is stable. She is currently maintaining appropriate saturations on 2L of supplemental oxygen via nasal cannula. Agree with continuing Lovenox for prophylaxis. Encourage incentive spirometer use. Wean supplemental oxygen to maintain saturations at or above 90%. Mobilize lupe ent as tolerated. 2. Suspected sleep apnea/alveolar hypoventilation The patient did present with an elevated bicarbonate. This is likely chronic for the patient. Although she does report having had a sleep study done previously, she reported that she was told that she did not have sleep apnea. I highly doubt that the patient does not have some form of sleep apnea, based upon her body habitus. It is certainly reasonable to place the patient empirically on BiPAP therapy on a nightly basis, if she is agreeable. 3. Super morbid obesity/anemia/self-reported asthma/recent diagnosis of cellulitis/neuropathy Complicates care, management, recovery and prognosis. Continue home medications as indicated. This note was generated with [employer] dictation software. It may contain incorrect words, spelling, and punctuation that were not noted in checking the note before signing. Subjective Subjective The patient was seen and examined at the bedside this morning. Events from the last 24 hours have been reviewed. The patient is currently afebrile, hemodynamically stable and maintaining appropriate oxygen saturations on 2 L/min via nasal cannula. The patient is documented to be overall net +2.5 L for the hospital admission. The patient remains on remdesivir, Decadron and prophylactic Lovenox. Objective Data Objective Data The patient's most recent lab work, culture data and imaging studies have all been personally reviewed. Rapid coronavirus antigen testing was positive on October 12. Vital Signs: Vital Signs Temp Pulse Resp BP Pulse Ox 97.5 F L 90 18 142/91 H 97 10/14/20 04:01 10/14/20 06:22 10/14/20 04:01 10/14/20 04:01 10/14/20 06:22 Oxygen Flow Rate (L/min) 2 Oxygen Delivery Method Nasal Cannula Weight: 203.7 kg Body Mass Index (BMI) 72.8 Intake & Output: Intake and Output for Last 24 Hours 10/12/20 10/13/20 10/14/20 23:59 23:59 23:59 Intake Total 482.75 / 722.75 2105.5 / 2105.5 Balance 482.75 / 722.75 2105.5 / 2105.5 Medical Nutrition Assessment Dietitian: Nutrition Therapy Diagnosis Start: 10/13/20 0 8:24 Freq: Status: Active Protocol: Document 10/13/20 08:51 SLA (Rec: 10/13/20 08:51 SLA [id number]) Nutrition Malnutrition Evidence of Malnutrition Exists No Clinical Problem Unintended Weight Gain Etiology related to limited mobility and issues w/ lymphedema Signs/Symptoms as evidenced by 9% wt gain in past several months and BMI > 70 Status Active Problem Altered Nutrient-Related Laboratory Values Etiology related to steroid use Signs/Symptoms as evidenced by gluc 131 Status Active Problem Recommendation Dietitian Recommendations/Changes Will continue liberal Regular diet per pt preference Lab / Micro Data Attestation: I reviewed the patient's lab results. Result Diagrams: 10/13/20 04:40 10/13/20 04:40 Micro: Microbiology 10/13/20 10:25 Sputum, Expectorated/Coughed Gram Stain - Final 10/12/20 14:40 Mucosa - Nose SARS-CoV-2 Antigen (Rapid) - Final SARS-CoV-2 (COVID 19) Rhythm Strip Rhythm Strip: Sinus Tach Rate: 104 Ectopy: None Physical Exam Const alert, oriented x3 and no apparent distress General Appearance: cooperative Nutritional Appearance: morbidly obese HEENT normocephalic, head/scalp atraumatic and moist oral mucous membranes Eyes PERRL, EOMs intact bilaterally and conjunctivae normal Neck supple General: trachea midline Resp normal respiratory effort Auscultation: diminished lung sounds; Negative for rales, rhonchi or wheezes Cardio regular rate and regular rhythm GI normal to inspection, nondistended, normoactive bowel sounds Extremity General Extremity: edema bilateral lower extremity Skin General Skin Exam: erythema Neuro oriented x3, CN's II-XII intact bilaterally, moves all extremities and no focal motor deficits Psych cooperative and affect normal Charges/Coding Visit Charges Inpatient E&M: 04817 Subs Hosp L2
--- NOTE | 2020-10-14 07:37 | PCM.PN.HOSP ---
Subjective Subjective Patient seen breathing remains relatively stable. Currently on 2 L of oxygen via nasal cannula. Patient also complains of easy bruisability. She requested discontinuation of Lovenox did explain to the patient the need to be on DVT prophylaxis Objective Data Objective Data Vital Signs: Vital Signs Temp Pulse Resp BP Pulse Ox 97.5 F L 90 18 142/91 H 97 10/14/20 04:01 10/14/20 06:22 10/14/20 04:01 10/14/20 04:01 10/14/20 06:22 Oxygen Flow Rate (L/min) 2 Oxygen Delivery Method Nasal Cannula Weight: 203.7 kg Body Mass Index (BMI) 72.8 Intake & Output: Intake and Output for Last 24 Hours 10/12/20 10/13/20 10/14/20 23:59 23:59 23:59 Intake Total 482.75 / 722.75 2105.5 / 2105.5 Balance 482.75 / 722.75 2105.5 / 2105.5 Medical Nutrition Assessment Dietitian: Nutrition Therapy Diagnosis Start: 10/13/20 08:24 Freq: Status: Active Protocol: Document 10/13/20 08:51 SLA (Rec: 10/13/20 08:51 SLA [id number]) Nutrition Malnutrition Evidence of Malnutrition Exists No Clinical Problem Unintended Weight Gain Etiology related to limited mobility and issues w/ lymphedema Signs/Symptoms as evidenced by 9% wt gain in past several months and BMI > 70 Status Active Problem Altered Nutrient-Related Laboratory Values Etiology related to steroid use Signs/Symptoms as evidenced by gluc 131 Status Active Problem Recommendation Dietitian Recommendations/Changes Will continue liberal Regular diet per pt preference Lab / Micro Data Result Diagrams: 10/14/20 08:42 10/14/20 08:42 Micro: Microbiology 10/13/20 10:25 Sputum, Expectorated/Coughed Gram Stain - Final 10/12/20 14:40 Mucosa - Nose SARS-CoV-2 Antigen (Rapid) - Final SARS-CoV-2 (COVID 19) Rhythm Strip Rhythm Strip: Sinus Tach Rate: 104 Ectopy: None Physical Exam Narrative GENERAL: Patient appears ill looking HEENT: Atraumatic; EYES; Anicteric, Normal Conjunctiva NECK; supple, normal thyroid, RESPIRATORY: Diminished to auscultation CARDIOVASCULAR: Regular S1 S2, tachycardic GI: soft, normoactive bowel sounds, : No Renal angle tenderness; EXTREMITIES: No edema, no clubbing, MUSCULOSKELETAL: no muscle waisting NEURO: Awake; no lateralizing signs. SKIN: Area of erythema and warmth involving the right medial thigh PSYCH; Flat affect Assessment & Plan Assessment/Plan (1) Cellulitis: (2) COVID-19 virus infection: (3) Hypoxia: (4) Sepsis: (5) BMI 70 and over, adult: PLAN: Patient is a 44-year-old lady presenting with shortness of breath 1. Acute hypoxic respiratory failure ?Secondary to SARS-CoV-2 pneumonia. Patient has been admitted to the intensive care unit managed with supplemental oxygen, incentive spirometry,. Patient was placed under contact and droplet isolation. Was started on Decadron and remdesivir with consultation placed to both pulmonary medicine as well as infectious disease -10/13/2020;Patient was monitored in the intensive care unit overnight she did remain relatively stable plan is to transfer to regular nursing floor -10/14/2020;Patient seen breathing remains relatively stable. Currently on 2 L of oxygen via nasal cannula 2. Sepsis ?Secondary to SARS-CoV-2 pneumonia management as discussed above 3. Recent admission for cellulitis involving the right lower extremity ?Patient still has significant erythema patient is on doxycycline did continue 4. Anemia -Patient hemoglobin on admission was 8.5. This is thought to be secondary to chronic disorder monitoring H&H and transfuse if patient becomes symptomatic or hemoglobin falls below 7 -10/14/2020; hemoglobin down to 9.1 we will continue with monitoring 5. Generalized osteoarthritis ?Patient is on acetaminophen did continue 6. Morbid obesity - With a BMI of 73.6 this obviously complicates patient's care. Patient was counseled on weight reduction 7. DVT prophylaxis - On enoxaparin Charges/Coding Visit Charges Inpatient E&M: 81773 Subs Hosp L2
[2020-10-14] MEDS: Famotidine 20 MG Tablet PO ×2 (08:30→21:00)
[2020-10-14] MEDS: DULoxetine Hcl 20 MG Capsule PO ×2 (08:30→21:00)
[2020-10-14] MEDS: Enoxaparin 40 MG/0.4 ML Syringe SC ×2 (08:30→20:59)
[2020-10-14] MEDS: Furosemide 40 MG Tablet PO (08:30)
[2020-10-14] MEDS: dexAMETHasone 4 MG Tablet 6 MG PO (08:30)
[2020-10-14] MEDS: Ibuprofen 400 MG Tablet PO ×2 (08:30→17:16)
[2020-10-14 09:21] LABS: Absolute Lymphocyte Count 0.77 X10^3/uL (0.83-4.51); Absolute Neutrophil Count 4.5 X10^3/uL (2.0-7.7); Hematocrit 31.6 % (37-47); Hemoglobin 9.1 g/dL (12.0-15.0); Lymphocyte # 0.77 X10^3/ul (0.83-4.51); Lymphocyte % 13.5 % (19-41); Mean Corp Hgb Conc 28.8 g/dL (32-36); Mean Corpuscular Hgb 24.8 pg (27.0-32.0); Mean Corpuscular Volume 86.1 fL (81-99); Mean Platelet Vol. 9.5 fl (6.2-12.0); Monocyte# 0.41 X10^3/uL; Monocyte% 7.2 % (0-10); NRBC Flagged by Analyzer 0 % (0-5); Neutrophil % 78.6 % (47-70); Platelet Count 329 K/mm3 (150-450); RBC Distribution Width CV 17.2 % (11.6-14.6); Red Blood Count 3.67 M/mm3 (4.2-5.4); White Blood Count 5.7 K/mm3 (4.4-11.0)
[2020-10-14 09:41] LABS: Anion Gap 2 (5-15); BUN 17 mg/dL (7-18); BUN/Creat Ratio 25.9 RATIO (10-20); Calcium,Total 8.7 mg/dL (8.5-10.1); Chloride 99 mmol/L (98-107); Creatinine, Serum 0.66 mg/dL (0.55-1.02); EST Glomerular Filtration Rate 104 mL/min (>60); Est Glom Filt Rate - Afr Amer 126 mL/min (>60); Estimated Creatinine Clearance 102.89 ml/min; Glucose 91 mg/dL (74-106); Sodium Level 136 mmol/L (136-145)
[2020-10-14] MEDS: Montelukast 10 MG Tablet PO (21:00)
[2020-10-14] MEDS: guaiFENesin 10 ML UDC (200MG/10ML) PO (21:24)
[2020-10-15] VITALS (8 sets, daily range): BP systolic 123–140; BP diastolic 68–81; PULSE 73–99; RESP 18–20; TEMP 36.4–36.7; O2SAT 92–96
[2020-10-15] MEDS: Ondansetron 4 MG/2 ML Vial IV (01:53)
[2020-10-15] MEDS: 0.9% Saline Lock 10 ML Syringe IV ×2 (01:53→09:45)
[2020-10-15] MEDS: guaiFENesin 10 ML UDC (200MG/10ML) PO ×2 (01:53→21:52)
--- NOTE | 2020-10-15 06:27 | PN.CC_ITS ---
Assessment & Plan Assessment/Plan (1) COVID-19 virus infection: PLAN: RECOMMENDATIONS: 1. Wean supplemental oxygen to maintain saturations at or above 90%. 2. Encourage incentive spirometer use and mobilize patient as tolerated. 3. Continue remdesivir as ordered. Monitor liver and renal function accordingly. 4. Continue Decadron to complete 10-day treatment course. 5. Continue appropriate prophylaxis. IMPRESSIONS: 1. Acute hypoxemic respiratory failure secondary to COVID-19 pneumonia The patient initially presented with hypoxemia and shortness of breath and was found to be positive for coronavirus on rapid antigen testing. She is currently being maintained on appropriate therapy with remdesivir and Decadron. The patient's oxygenation status is stable. She is currently maintaining appropriate saturations on 3L of supplemental oxygen via nasal cannula. Agree with continuing Lovenox for prophylaxis. Encourage incentive spirometer use. Wean supplemental oxygen to maintain saturations at or above 90%. Mobilize lupe ent as tolerated. 2. Suspected sleep apnea/alveolar hypoventilation The patient did present with an elevated bicarbonate. This is likely chronic for the patient. Although she does report having had a sleep study done previously, she reported that she was told that she did not have sleep apnea. I highly doubt that the patient does not have some form of sleep apnea, based upon her body habitus. It is certainly reasonable to place the patient empirically on BiPAP therapy on a nightly basis, if she is agreeable. 3. Super morbid obesity/anemia/self-reported asthma/recent diagnosis of cellulitis/neuropathy Complicates care, management, recovery and prognosis. Continue home medications as indicated. This note was generated with [employer] dictation software. It may contain incorrect words, spelling, and punctuation that were not noted in checking the note before signing. Subjective Subjective The patient was seen and examined at the bedside this morning. Events from the last 24 hours have been reviewed. The patient is currently afebrile, hemodynamically stable and maintaining appropriate oxygen saturations on 3 L/min via nasal cannula. The patient is documented to be overall net +4 L for the hospital admission. She remains on remdesivir and Decadron. Liver and renal function have been stable. Objective Data Objective Data The patient's most recent lab work, culture data and imaging studies have all been personally reviewed. Rapid coronavirus antigen testing was positive on October 12. Vital Signs: Vital Signs Temp Pulse Resp BP Pulse Ox 97.5 F L 77 18 136/81 H 92 10/15/20 01:55 10/15/20 01:55 10/15/20 01:55 10/15/20 01:55 10/15/20 02:00 Oxygen Flow Rate (L/min) 3 Oxygen Delivery Method Nasal Cannula Weight: 204.888 kg Body Mass Index (BMI) 72.8 Intake & Output: Intake and Output for Last 24 Hours 10/13/20 10/14/20 10/15/20 23:59 23:59 23:59 Intake Total 2105.5 / 2105.5 1470 / 1470 300 / 300 Output Total 300 / 300 Balance 2105.5 / 2105.5 1170 / 1170 300 / 300 Medical Nutrition Assessment Dietitian: Nutrition Therapy Diagnosis Start: 10/13/20 08:24 Freq: Status: Active Protocol: Document 10/13/20 08:51 SLA (Rec: 10/13/20 08:51 SLA [id number]) Nutrition Malnutrition Evidence of Malnutrition Exists No Clinical Problem Unintended Weight Gain Etiology related to limited mobility and issues w/ lymphedema Signs/Symptoms as evidenced by 9% wt gain in past several months and BMI > 70 Status Active Problem Altered Nutrient-Related Laboratory Values Etiology related to steroid use Signs/Symptoms as evidenced by gluc 131 Status Active Problem Recommendation Dietitian Recommendations/Changes Will continue liberal Regular diet per pt preference Lab / Micro Data Attestation: I reviewed the patient's lab results. Result Diagrams: 10/15/20 06:15 10/15/20 06:15 Labs: Laboratory Results - last 24 hr 10/14/20 08:42: WBC 5.7, RBC 3.67 L, Hgb 9.1 L, Hct 31.6 L, MCV 86.1, MCH 24.8 L , MCHC 28.8 L, RDW Std Deviation 54.0 H, RDW Coeff of Fanny 17.2 H, Plt Count 329, MPV 9.5, Immature Gran % (Auto) 0.700, Neut % (Auto) 78.6 H, Lymph % (Auto) 13.5 L, [place] % (Auto) 7.2, Eos % (Auto) 0.0, Baso % (Auto) 0.0, Absolute Neuts (auto) 4.5, Absolute Lymphs (auto) 0.77 L, Nucleated RBC % 0 10/14/20 08:42: Sodium 136, Potassium 4.0, Chloride 99, Carbon Dioxide 35.0 H, Anion Gap 2 L, BUN 17, Creatinine 0.66, Estim Creat Clear Calc 102.89, Est GFR (MDRD) Af Amer 126, Est GFR (MDRD) Non-Af 104, BUN/Creatinine Ratio 25.9 H, Glucose 91, Calcium 8.7 Micro: Microbiology 10/13/20 10:25 Sputum, Expectorated/Coughed Gram Stain - Final 10/13/20 10:25 Sputum, Expectorated/Coughed Respiratory Culture - Preliminary Appears to be normal respiratory beka. Further studies to follow. 10/14/20 10:40 Urine, Clean Catch Legionella Antigen - Final 10/14/20 10:40 Urine, Clean Catch Streptococcus pneumoniae Antigen (M - Final 10/12/20 14:40 Blood Culture (Wb) #2 - Arm Right Blood Culture - Preliminary No growth in 48 hours. 10/12/20 14:20 Blood Culture (Wb) - Left Forearm Blood Culture - Preliminary No growth in 48 hours. 10/12/20 14:40 Mucosa - Nose SARS-CoV-2 Antigen (Rapid) - Final SARS-CoV-2 (COVID 19) Rhythm Strip Rhythm Strip: Sinus Tach Rate: 104 Ectopy: None Physical Exam Const alert, oriented x3 and no apparent distress General Appearance: cooperative Nutritional Appearance: morbidly obese HEENT normocephalic, head/scalp atraumatic and moist oral mucous membranes Eyes PERRL, EOMs intact bilaterally and conjunctivae normal Neck supple General: trachea midline Resp normal respiratory effort Auscultation: diminished lung sounds; Negative for rales, rhonchi or wheezes Cardio regular rate and regular rhythm GI normal to inspection, nondistended, normoactive bowel sounds Extremity General Extremity: edema bilateral lower extremity Skin General Skin Exam: erythema Neuro oriented x3, CN's II-XII intact bilaterally, moves all extremities and no focal motor deficits Psych cooperative and affect normal Charges/Coding Visit Charges Inpatient E&M: 84674 Subs Hosp L2
[2020-10-15 06:55] LABS: Absolute Lymphocyte Count 0.73 X10^3/uL (0.83-4.51); Absolute Neutrophil Count 4.7 X10^3/uL (2.0-7.7); Basophil# 0.02 X10^3/uL; Basophil% 0.3 % (0-1); Eosinophil# 0.17 X10^3/uL; Eosinophils% 2.7 % (0-5); Hematocrit 32.6 % (37-47); Hemoglobin 9.4 g/dL (12.0-15.0); Lymphocyte # 0.73 X10^3/ul (0.83-4.51); Lymphocyte % 11.8 % (19-41); Mean Corp Hgb Conc 28.8 g/dL (32-36); Mean Corpuscular Hgb 25.1 pg (27.0-32.0); Mean Corpuscular Volume 86.9 fL (81-99); Mean Platelet Vol. 10.3 fl (6.2-12.0); Monocyte% 8.1 % (0-10); NRBC Flagged by Analyzer 0 % (0-5); Platelet Count 333 K/mm3 (150-450); RBC Distribution Width CV 17.3 % (11.6-14.6); RBC Distribution Width SD 54.5 fl (35.1-43.9); Red Blood Count 3.75 M/mm3 (4.2-5.4); White Blood Count 6.2 K/mm3 (4.4-11.0)
[2020-10-15 07:13] LABS: Anion Gap 4 (5-15); BUN 17 mg/dL (7-18); BUN/Creat Ratio 28.9 RATIO (10-20); Calcium,Total 8.2 mg/dL (8.5-10.1); Chloride 102 mmol/L (98-107); Creatinine, Serum 0.59 mg/dL (0.55-1.02); EST Glomerular Filtration Rate 118 mL/min (>60); Est Glom Filt Rate - Afr Amer 143 mL/min (>60); Glucose 109 mg/dL (74-106); Potassium 4.8 mmol/L (3.5-5.1); Sodium Level 135 mmol/L (136-145)
--- NOTE | 2020-10-15 08:14 | PN.HOSP_ITS ---
Subjective Subjective Patient seen complaining of having experienced a rough night. She requested for discontinuation of Lovenox and initiation of heparin in view of epistaxis Objective Data Objective Data Vital Signs: Vital Signs Temp Pulse Resp BP Pulse Ox 97.5 F L 77 18 136/81 H 92 10/15/20 01:55 10/15/20 01:55 10/15/20 01:55 10/15/20 01:55 10/15/20 02:00 Oxygen Flow Rate (L/min) 3 Oxygen Delivery Method Nasal Cannula Weight: 204.888 kg Body Mass Index (BMI) 72.8 Intake & Output: Intake and Output for Last 24 Hours 10/13/20 10/14/20 10/15/20 23:59 23:59 23:59 Intake Total 2105.5 / 2105.5 1470 / 1470 300 / 300 Output Total 300 / 300 Balance 2105.5 / 2105.5 1170 / 1170 300 / 300 Medical Nutrition Assessment Dietitian: Nutrition Therapy Diagnosis Start: 10/13/20 08:24 Freq: Status: Active Protocol: Document 10/13/20 08:51 HUA (Rec: 10/13/20 08:51 SLA [id number]) Nutrition Malnutrition Evidence of Malnutrition Exists No Clinical Problem Unintended Weight Gain Etiology related to limited mobility and issues w/ lymphedema Signs/Symptoms as evidenced by 9% wt gain in past several months and BMI > 70 Status Active Problem Altered Nutrient-Related Laboratory Values Etiology related to steroid use Signs/Symptoms as evidenced by gluc 131 Status Active Problem Recommendation Dietitian Recommendations/Changes Will continue liberal Regular diet per pt preference Lab / Micro Data Result Diagrams: 10/15/20 06:15 10/15/20 06:15 Labs: Laboratory Results - last 24 hr 10/14/20 08:42: WBC 5.7, RBC 3.67 L, Hgb 9.1 L, Hct 31.6 L, MCV 86.1, MCH 24.8 L , MCHC 28.8 L, RDW Std Deviation 54.0 H, RDW Coeff of Fanny 17.2 H, Plt Count 329, MPV 9.5, Immature Gran % (Auto) 0.700, Neut % (Auto) 78.6 H, Lymph % (Auto) 13.5 L, [place] % (Auto) 7.2, Eos % (Auto) 0.0, Baso % (Auto) 0.0, Absolute Neuts (auto) 4.5, Absolute Lymphs (auto) 0.77 L, Nucleated RBC % 0 10/14/20 08:42: Sodium 136, Potassium 4.0, Chloride 99, Carbon Dioxide 35.0 H, Anion Gap 2 L, BUN 17, Creatinine 0.66, Estim Creat Clear Calc 102.89, Est GFR (MDRD) Af Amer 126, Est GFR (MDRD) Non-Af 104, BUN/Creatinine Ratio 25.9 H, Glucose 91, Calcium 8.7 10/15/20 06:15: WBC 6.2, RBC 3.75 L, Hgb 9.4 L, Hct 32.6 L, MCV 86.9, MCH 25.1 L , MCHC 28.8 L, RDW Std Deviation 54.5 H, RDW Coeff of Fanny 17.3 H, Plt Count 333, MPV 10.3, Immature Gran % (Auto) 1.100 H, Neut % (Auto) 76.0 H, Lymph % (Auto) 11.8 L, [place] % (Auto) 8.1, Eos % (Auto) 2.7, Baso % (Auto) 0.3, Absolute Neuts (auto) 4.7, Absolute Lymphs (auto) 0.73 L, Nucleated RBC % 0 10/15/20 06:15: Sodium 135 L, Potassium 4.8, Chloride 102, Carbon Dioxide 29.0, Anion Gap 4 L, BUN 17, Creatinine 0.59, Estim Creat Clear Calc 115.10, Est GFR (MDRD) Af Amer 143, Est GFR (MDRD) Non-Af 118, BUN/Creatinine Ratio 28.9 H, Glucose 109 H, Calcium 8.2 L Micro: Microbiology 10/13/20 10:25 Sputum, Expectorated/Coughed Gram Stain - Final 10/13/20 10:25 Sputum, Expectorated/Coughed Respiratory Culture - Preliminary Appears to be normal respiratory beka. Further studies to follow. 10/14/20 10:40 Urine, Clean Catch Legionella Antigen - Final 10/14/20 10:40 Urine, Clean Catch Streptococcus pneumoniae Antigen (M - Final 10/12/20 14:40 Blood Culture (Wb) #2 - Arm Right Blood Culture - Preliminary No growth in 48 hours. 10/12/20 14:20 Blood Culture (Wb) - Left Forearm Blood Culture - Preliminary No growth in 48 hours. 10/12/20 14:40 Mucosa - Nose SARS-CoV-2 Antigen (Rapid) - Final SARS-CoV-2 (COVID 19) Rhythm Strip Rhythm Strip: Sinus Tach Rate: 104 Ectopy: None Physical Exam Narrative GENERAL: Patient appears ill looking HEENT: Atraumatic; EYES; Anicteric, Normal Conjunctiva NECK; supple, normal thyroid, RESPIRATORY: Diminished to auscultation CARDIOVASCULAR: Regular S1 S2, tachycardic GI: soft, normoactive bowel sounds, : No Renal angle tenderness; EXTREMITIES: No edema, no clubbing, MUSCULOSKELETAL: no muscle waisting NEURO: Awake; no lateralizing signs. SKIN: Area of erythema and warmth involving the right medial thigh PSYCH; Flat affect Assessment & Plan Assessment/Plan (1) Cellulitis: (2) COVID-19 virus infection: (3) Hypoxia: (4) Sepsis: (5) BMI 70 and over, adult: PLAN: Patient is a 44-year-old lady presenting with shortness of breath 1. Acute hypoxic respiratory failure ?Secondary to SARS-CoV-2 pneumonia. Patient has been admitted to the intensive care unit managed with supplemental oxygen, incentive spirometry,. Patient was placed under contact and droplet isolation. Was started on Decadron and remdesivir with consultation placed to both pulmonary medicine as well as infectious disease -10/13/2020;Patient was monitored in the intensive care unit overnight she did remain relatively stable plan is to transfer to regular nursing floor -10/14/2020;Patient seen breathing remains relatively stable. Currently on 2 L of oxygen via nasal cannula -10/15/2020. Patient oxygen requirement increasing. Currently on 3 L via nasal cannula 2. Sepsis ?Secondary to SARS-CoV-2 pneumonia management as discussed above 3. Recent admission for cellulitis involving the right lower extremity ?Patient still has significant erythema patient is on doxycycline did continue 4. Anemia -Patient hemoglobin on admission was 8.5. This is thought to be secondary to chronic disorder monitoring H&H and transfuse if patient becomes symptomatic or hemoglobin falls below 7 -10/14/2020; hemoglobin down to 9.1 we will continue with monitoring 5. Generalized osteoarthritis ?Patient is on acetaminophen did continue 6. Morbid obesity - With a BMI of 73.6 this obviously complicates patient's care. Patient was counseled on weight reduction 7. DVT prophylaxis - On enoxaparin -10/15/2020; Patient seen complaining of having experienced a rough night. She requested for discontinuation of Lovenox and initiation of heparin in view of epistaxis Charges/Coding Visit Charges Inpatient E&M: 03029 Subs Hosp L2
[2020-10-15] MEDS: dexAMETHasone 4 MG Tablet 6 MG PO (09:35)
[2020-10-15] MEDS: DULoxetine Hcl 20 MG Capsule PO ×2 (09:36→21:54)
[2020-10-15] MEDS: Furosemide 40 MG Tablet PO (09:36)
[2020-10-15] MEDS: Famotidine 20 MG Tablet PO ×2 (09:36→21:54)
[2020-10-15] MEDS: Heparin Injection (Vial) 5,000 UNIT/ML VIAL 5000 UNIT SC ×2 (14:15→21:53)
[2020-10-15] MEDS: Ibuprofen 400 MG Tablet PO (21:53)
[2020-10-15] MEDS: Montelukast 10 MG Tablet PO (21:54)
[2020-10-15] MEDS: MELATONIN 3 MG TABLET PO (21:54)
[2020-10-15] MEDS: Gabapentin 300 MG Capsule PO (21:54)
[2020-10-16] VITALS (9 sets, daily range): BP systolic 127–149; BP diastolic 73–95; PULSE 66–95; RESP 16–22; TEMP 36.3–36.6; O2SAT 92–96
[2020-10-16] MEDS: Heparin Injection (Vial) 5,000 UNIT/ML VIAL 5000 UNIT SC ×3 (03:14→20:58)
[2020-10-16] MEDS: guaiFENesin 10 ML UDC (200MG/10ML) PO (03:14)
[2020-10-16] MEDS: Gabapentin 300 MG Capsule PO (03:42)
[2020-10-16] MEDS: Ibuprofen 400 MG Tablet PO ×2 (03:42→11:44)
[2020-10-16 06:50] LABS: Absolute Lymphocyte Count 0.85 X10^3/uL (0.83-4.51); Absolute Neutrophil Count 3.9 X10^3/uL (2.0-7.7); Basophil# 0.01 X10^3/uL; Basophil% 0.2 % (0-1); Hematocrit 31.7 % (37-47); Lymphocyte # 0.85 X10^3/ul (0.83-4.51); Lymphocyte % 15.5 % (19-41); Mean Corp Hgb Conc 28.4 g/dL (32-36); Mean Corpuscular Hgb 24.7 pg (27.0-32.0); Mean Corpuscular Volume 86.8 fL (81-99); Mean Platelet Vol. 9.4 fl (6.2-12.0); Monocyte% 12.8 % (0-10); NRBC Flagged by Analyzer 0 % (0-5); Neutrophil # 3.86 X10^3/uL (2.7-7.7); Neutrophil % 70.4 % (47-70); Platelet Count 339 K/mm3 (150-450); RBC Distribution Width SD 53.7 fl (35.1-43.9); Red Blood Count 3.65 M/mm3 (4.2-5.4); White Blood Count 5.5 K/mm3 (4.4-11.0)
[2020-10-16 07:12] LABS: Anion Gap 2 (5-15); BUN 17 mg/dL (7-18); BUN/Creat Ratio 25.4 RATIO (10-20); Calcium,Total 8.7 mg/dL (8.5-10.1); Chloride 98 mmol/L (98-107); Creatinine, Serum 0.67 mg/dL (0.55-1.02); EST Glomerular Filtration Rate 102 mL/min (>60); Est Glom Filt Rate - Afr Amer 123 mL/min (>60); Estimated Creatinine Clearance 101.35 ml/min; Glucose 93 mg/dL (74-106); Potassium 4.1 mmol/L (3.5-5.1); Sodium Level 135 mmol/L (136-145)
[2020-10-16] MEDS: Famotidine 20 MG Tablet PO ×2 (10:33→20:57)
[2020-10-16] MEDS: Furosemide 40 MG Tablet PO (10:33)
[2020-10-16] MEDS: dexAMETHasone 4 MG Tablet 6 MG PO (10:33)
[2020-10-16] MEDS: DULoxetine Hcl 20 MG Capsule PO ×2 (10:33→20:57)
[2020-10-16] MEDS: Albuterol 2.5 MG/3 ML VIAL.NEB. INHALATION ×2 (11:14→14:16)
--- NOTE | 2020-10-16 11:52 | PCM.PN.ID ---
Physical Exam Narrative Feeling about the same, no fever, no n/v/d. Const alert General Appearance: cooperative Resp clear to auscultation bilaterally Auscultation: diminished lung sounds Cardio regular rate and regular rhythm GI normal to inspection, nondistended, normoactive bowel sounds Skin no rashes or lesions noted ID ID: Route of nutrition/ use of supplements: [] Nutritional Intake: [] IV Site: [] Aj Catheter: [] Assessment & Plan Assessment/Plan (1) Cellulitis: (2) COVID-19 virus infection: PLAN: Sx started around 10/05. Quarantine for 20 days. 10 days of dex. Cont remdesivr with daily labs. Family now (+) at home. Will follow (3) Hypoxia: (4) BMI 70 and over, adult:
--- NOTE | 2020-10-16 14:32 | PN.HOSP_ITS ---
Subjective Subjective Increased oxygen requirements. RLE cellulitis resolved. Objective Data Objective Data Vital Signs: Vital Signs Temp Pulse Resp BP Pulse Ox 36.6 C 74 20 H 149/95 H 94 10/16/20 13:36 10/16/20 14:16 10/16/20 14:16 10/16/20 13:36 10/16/20 14:16 Oxygen Flow Rate (L/min) 4 Oxygen Delivery Method Nasal Cannula Weight: 204.253 kg Body Mass Index (BMI) 72.8 Intake & Output: Intake and Output for Last 24 Hours 10/14/20 10/15/20 10/16/20 23:59 23:59 23:59 Intake Total 1470 / 1470 2150 / 2150 600 / 600 Output Total 300 / 300 500 / 500 Balance 1170 / 1170 1650 / 1650 600 / 600 Medical Nutrition Assessment Dietitian: Nutrition Therapy Diagnosis Start: 10/13/20 08:24 Freq: Status: Active Protocol: Document 10/13/20 08:51 HUA (Rec: 10/13/20 08:51 SLA [id number]) Nutrition Malnutrition Evidence of Malnutrition Exists No Clinical Problem Unintended Weight Gain Etiology related to limited mobility and issues w/ lymphedema Signs/Symptoms as evidenced by 9% wt gain in past several months and BMI > 70 Status Active Problem Altered Nutrient-Related Laboratory Values Etiology related to steroid use Signs/Symptoms as evidenced by gluc 131 Status Active Problem Recommendation Dietitian Recommendations/Changes Will continue liberal Regular diet per pt preference Lab / Micro Data Result Diagrams: 10/16/20 06:20 10/16/20 06:20 Labs: Laboratory Results - last 24 hr 10/16/20 06:20: WBC 5.5, RBC 3.65 L, Hgb 9.0 L, Hct 31.7 L, MCV 86.8, MCH 24.7 L , MCHC 28.4 L, RDW Std Deviation 53.7 H, RDW Coeff of Fanny 17.0 H, Plt Count 339, MPV 9.4, Immature Gran % (Auto) 1.100 H, Neut % (Auto) 70.4 H, Lymph % (Auto) 15.5 L, [place] % (Auto) 12.8 H, Eos % (Auto) 0.0, Baso % (Auto) 0.2, Absolute Neuts (auto) 3.9, Absolute Lymphs (auto) 0.85, Nucleated RBC % 0 10/16/20 06:20: Sodium 135 L, Potassium 4.1, Chloride 98, Carbon Dioxide 35.0 H, Anion Gap 2 L, BUN 17, Creatinine 0.67, Estim Creat Clear Calc 101.35, Est GFR (MDRD) Af Amer 123, Est GFR (MDRD) Non-Af 102, BUN/Creatinine Ratio 25.4 H, Glucose 93, Calcium 8.7 Micro: Microbiology 10/13/20 10:25 Sputum, Expectorated/Coughed Gram Stain - Final 10/13/20 10:25 Sputum, Expectorated/Coughed Respiratory Culture - Final Presumptive C albicans 10/14/20 10:40 Urine, Clean Catch Legionella Antigen - Final 10/14/20 10:40 Urine, Clean Catch Streptococcus pneumoniae Antigen (M - Fi nal 10/12/20 14:40 Blood Culture (Wb) #2 - Arm Right Blood Culture - Preliminary No growth in 48 hours. 10/12/20 14:20 Blood Culture (Wb) - Left Forearm Blood Culture - Preliminary No growth in 48 hours. 10/12/20 14:40 Mucosa - Nose SARS-CoV-2 Antigen (Rapid) - Final SARS-CoV-2 (COVID 19) Rhythm Strip Rhythm Strip: Sinus Tach Rate: 104 Ectopy: None Physical Exam Const alert Resp normal respiratory effort, no use of accessory muscles and clear to auscultation bilaterally Cardio regular rate, regular rhythm, S1 normal heart sound and S2 normal heart sound GI normal to inspection, nondistended, normoactive bowel sounds, non-tender and non-distended Skin Skin Narrative: superficial abrasions on LE. no erythema on LE. Assessment & Plan Assessment/Plan (1) COVID-19 virus infection: (2) Acute respiratory failure with hypoxia: (3) Morbid obesity: PLAN: 1. Acute COVID-19 pneumonia Date of onset 10/05/2020 Plan: Continue with dexamethasone for 10 days and remdesivir. 2. Acute hypoxic respiratory failure Secondary COVID-19 Oxygen requirement slowly up from 2 to 4 L nasal cannula Wean oxygen as tolerated Discussed with patient about if her condition gets worse may need to consider air Vo, BiPAP or even intubation. 3. Epistaxis Resolved Secondary to high flow oxygen, as well as enoxaparin Improved after change enoxaparin to heparin 4. Morbid obesity Complicates care and recovery Will benefit from bariatric evaluation as outpatient 5. Right lower extremity cellulitis Resolved 6. VTE prophylaxis Subcu heparin Charges/Coding Visit Charges Inpatient E&M: 01287 Subs Hosp L2
--- NOTE | 2020-10-16 15:38 | PCM.PN.INT ---
Assessment & Plan Assessment/Plan (1) COVID-19 virus infection: PLAN: RECOMMENDATIONS: 1. Wean supplemental oxygen to maintain saturations at or above 90%. 2. Encourage incentive spirometer use and mobilize patient as tolerated. 3. Completed remdesivir. No need to monitor liver and renal function accordingly. 4. Continue Decadron to complete 10-day treatment course. 5. Continue appropriate prophylaxis. 6. Add nasal saline IMPRESSIONS: 1. Acute hypoxemic respiratory failure secondary to COVID-19 pneumonia The patient initially presented with hypoxemia and shortness of breath and was found to be positive for coronavirus on rapid antigen testing. She is currently being maintained on appropriate therapy with remdesivir and Decadron. The patient's oxygenation status is stable. She is currently maintaining appropriate saturations on 3 to 4 L of supplemental oxygen via nasal cannula. Agree with continuing heparin for prophylaxis. Encourage incentive spirometer use. Wean supplemental oxygen to maintain saturations at or above 90%. Mobilize patient as tolerated. Clinical suspicion for increased oxygen requirement secondary to epistaxis 2. Suspected sleep apnea/alveolar hypoventilation The patient did present with an elevated bicarbonate. This is likely chronic for the patient. Although she does report having had a sleep study done previously, she reported that she was told that she did not have sleep apnea. I highly doubt that the patient does not have some form of sleep apnea, based upon her body habitus. It is certainly reasonable to place the patient empirically on BiPAP therapy on a nightly basis, if she is agreeable. 3. Super morbid obesity/anemia/self-reported asthma/recent diagnosis of cellulitis/neuropathy Complicates care, management, recovery and prognosis. Continue home medications as indicated. This note was generated with [employer] dictation software. It may contain incorrect words, spelling, and punctuation that were not noted in checking the note before signing. Subjective Subjective Patient did okay overnight. Patient's oxygen requirements have gone up slightly compared to previous. Patient does report a cough productive of dark red to brown secretions. Patient does believe this has improved after transition from Lovenox to heparin. There is been no change in patient's appetite. Objective Data Objective Data Vital Signs: Vital Signs Temp Pulse Resp BP Pulse Ox 36.6 C 74 20 H 149/95 H 94 10/16/20 13:36 10/16/20 14:16 10/16/20 14:16 10/16/20 13:36 10/16/20 14:16 Oxygen Flow Rate (L/min) 4 Oxygen Delivery Method Nasal Cannula Weight: 204.253 kg Body Mass Index (BMI) 72.8 Intake & Output: Intake and Output for Last 24 Hours 10/14/20 10/15/20 10/16/20 23:59 23:59 23:59 Intake Total 1470 / 1470 2150 / 2150 600 / 600 Output Total 300 / 300 500 / 500 Balance 1170 / 1170 1650 / 1650 600 / 600 Medical Nutrition Assessment Dietitian: Nutrition Therapy Diagnosis Start: 10/13/20 08:24 Freq: Status: Active Protocol: Document 10/13/20 08:51 SLA (Rec: 10/13/20 08:51 SLA [id number]) Nutrition Malnutrition Evidence of Malnutrition Exists No Clinical Problem Unintended Weight Gain Etiology related to limited mobility and issues w/ lymphedema Signs/Symptoms as evidenced by 9% wt gain in past several months and BMI > 70 Status Active Problem Altered Nutrient-Related Laboratory Values Etiology related to steroid use Signs/Symptoms as evidenced by gluc 131 Status Active Problem Recommendation Dietitian Recommendations/Changes Will continue liberal Regular diet per pt preference Lab / Micro Data Result Diagrams: 10/16/20 06:20 10/16/20 06:20 Labs: Laboratory Results - last 24 hr 10/16/20 06:20: WBC 5.5, RBC 3.65 L, Hgb 9.0 L, Hct 31.7 L, MCV 86.8, MCH 24.7 L, MCHC 28.4 L, RDW Std Deviation 53.7 H, RDW Coeff of Fanny 17.0 H, Plt Count 339, MPV 9.4, Immature Gran % (Auto) 1.100 H, Neut % (Auto) 70.4 H, Lymph % (Auto) 15.5 L, [place] % (Auto) 12.8 H, Eos % (Auto) 0.0, Baso % (Auto) 0.2, Absolute Neuts (auto) 3.9, Absolute Lymphs (auto) 0.85, Nucleated RBC % 0 10/16/20 06:20: Sodium 135 L, Potassium 4.1, Chloride 98, Carbon Dioxide 35.0 H, Anion Gap 2 L, BUN 17, Creatinine 0.67, Estim Creat Clear Calc 101.35, Est GFR (MDRD) Af Amer 123, Est GFR (MDRD) Non-Af 102, BUN/Creatinine Ratio 25.4 H, Glucose 93, Calcium 8.7 Micro: Microbiology 10/13/20 10:25 Sputum, Expectorated/Coughed Gram Stain - Final 10/13/20 10:25 Sputum, Expectorated/Coughed Respiratory Culture - Final Presumptive C albicans 10/14/20 10:40 Urine, Clean Catch Legionella Antigen - Final 10/14/20 10:40 Urine, Clean Catch Streptococcus pneumoniae Antigen (M - Final 10/12/20 14:40 Blood Culture (Wb) #2 - Arm Right Blood Culture - Preliminary No growth in 48 hours. 10/12/20 14:20 Blood Culture (Wb) - Left Forearm Blood Culture - Preliminary No growth in 48 hours. 10/12/20 14:40 Mucosa - Nose SARS-CoV-2 Antigen (Rapid) - Final SARS-CoV-2 (COVID 19) Rhythm Strip Rhythm Strip: Sinus Tach Rate: 104 Ectopy: None Physical Exam Const alert and no apparent distress Nutritional Appearance: morbidly obese HEENT HEENT Narrative: Dried blood noted in right nares Eyes PERRL, EOMs intact bilaterally, conjunctivae normal and no scleral icterus Chest inspection of chest normal Chest: symmetrical chest wall rise Resp normal respiratory effort and no use of accessory muscles Auscultation: diminished lung sounds; Negative for rales, rhonchi or wheezes Cardio regular rate, regular rhythm, S1 normal heart sound and S2 normal heart sound GI normal to inspection, nondistended, normoactive bowel sounds, non-tender and non-distended GI Narrative: Significantly limited exam secondary to body habitus Extremity General Extremity: edema; Negative for clubbing or cyanosis Skin Skin Narrative: superficial abrasions on LE. no erythema on LE. Neuro oriented x3, CN's II-XII intact bilaterally and moves all extremities Psych mental status grossly normal, thought process normal and cooperative Charges/Coding Visit Charges Inpatient E&M: 44540 Subs Hosp L2
[2020-10-16] MEDS: Montelukast 10 MG Tablet PO (20:58)
[2020-10-16] MEDS: 0.9% Saline Lock 10 ML Syringe IV (21:00)
[2020-10-17] VITALS (9 sets, daily range): BP systolic 124–154; BP diastolic 34–90; PULSE 62–84; RESP 18–20; TEMP 36.4–36.8; O2SAT 93–96
[2020-10-17] MEDS: Heparin Injection (Vial) 5,000 UNIT/ML VIAL 5000 UNIT SC ×3 (06:41→20:21)
[2020-10-17] MEDS: 0.9% Saline Lock 10 ML Syringe IV ×2 (06:43→10:02)
[2020-10-17 06:49] LABS: Absolute Neutrophil Count 5.2 X10^3/uL (2.0-7.7); Basophil# 0.03 X10^3/uL; Basophil% 0.4 % (0-1); Hematocrit 39.1 % (37-47); Hemoglobin 10.2 g/dL (12.0-15.0); Lymphocyte % 13.4 % (19-41); Mean Corp Hgb Conc 26.1 g/dL (32-36); Mean Corpuscular Hgb 24.6 pg (27.0-32.0); Mean Corpuscular Volume 94.4 fL (81-99); Monocyte# 0.47 X10^3/uL; NRBC Flagged by Analyzer 0.3 % (0-5); Neutrophil # 5.21 X10^3/uL (2.7-7.7); Neutrophil % 77.7 % (47-70); Platelet Count 356 K/mm3 (150-450); RBC Distribution Width CV 17.2 % (11.6-14.6); RBC Distribution Width SD 59.3 fl (35.1-43.9); Red Blood Count 4.14 M/mm3 (4.2-5.4); White Blood Count 6.7 K/mm3 (4.4-11.0)
[2020-10-17 07:14] LABS: Anion Gap 2 (5-15); BUN 20 mg/dL (7-18); BUN/Creat Ratio 33.7 RATIO (10-20); Calcium,Total 8.5 mg/dL (8.5-10.1); Chloride 98 mmol/L (98-107); Creatinine, Serum 0.59 mg/dL (0.55-1.02); EST Glomerular Filtration Rate 117 mL/min (>60); Est Glom Filt Rate - Afr Amer 141 mL/min (>60); Glucose 106 mg/dL (74-106); Potassium 4.9 mmol/L (3.5-5.1); Sodium Level 132 mmol/L (136-145)
--- NOTE | 2020-10-17 07:38 | PN.CC_ITS ---
Assessment & Plan Assessment/Plan (1) COVID-19 virus infection: PLAN: RECOMMENDATIONS: 1. Wean supplemental oxygen to maintain saturations at or above 90%. 2. Encourage incentive spirometer use and mobilize patient as tolerated. 3. Completed remdesivir. No need to monitor liver and renal function accordingly. 4. Continue Decadron to complete 10-day treatment course. 5. Continue appropriate prophylaxis. 6. Encourage nasal saline 7. Okay to discharge from a pulmonary perspective following walking oximetry IMPRESSIONS: 1. Acute hypoxemic respiratory failure secondary to COVID-19 pneumonia (probable delta variant) The patient initially presented with hypoxemia and shortness of breath and was found to be positive for coronavirus on rapid antigen testing. She is currently being maintained on appropriate therapy with remdesivir and Decadron. The patient's oxygenation status is stable. She is currently maintaining appropriate saturations on 3 to 4 L of supplemental oxygen via nasal cannula. Agree with continuing heparin for prophylaxis. Encourage incentive spirometer use. Wean supplemental oxygen to maintain saturations at or above 90%. Mobilize patient as tolerated. Clinical suspicion for increased oxygen requirement secondary to epistaxis. Patient's immunized daughter has now tested positive for COVID-19 increasing likelihood that this represents a delta variant. 2. Suspected sleep apnea/alveolar hypoventilation The patient did present with an elevated bicarbonate. This is likely chronic for the patient. Although she does report having had a sleep study done previously, she reported that she was told that she did not have sleep apnea. I highly doubt that the patient does not have some form of sleep apnea, based upon her body habitus. It is certainly reasonable to place the patient empirically on BiPAP therapy on a nightly basis, if she is agreeable. Patient is yet to use BiPAP overnight. 3. Super morbid obesity/anemia/self-reported asthma/recent diagnosis of cellulitis/neuropathy Complicates care, management, recovery and prognosis. Continue home medications as indicated. This note was generated with [employer] dictation software. It may contain incorrect words, spelling, and punctuation that were not noted in checking the note before signing. Subjective Subjective Patient did well overnight. Patient is reporting slightly increased body aches that she attributes to a more productive cough overnight. Patient describes the sputum as rust colored. Patient did not use nasal saline overnight as she thought it would not be helpful. Patient does report that her daughter that is fully immunized is also tested positive for COVID-19 in the last 24 hours Objective Data Objective Data Vital Signs: Vital Signs Temp Pulse Resp BP Pulse Ox 36.7 C 72 18 130/79 H 96 10/17/20 06:39 10/17/20 06:39 10/17/20 06:39 10/17/20 06:39 10/17/20 07:29 Oxygen Flow Rate (L/min) 4 Oxygen Delivery Method Nasal Cannula Weight: 205.1 kg Body Mass Index (BMI) 72.8 Intake & Output: Intake and Output for Last 24 Hours 10/15/20 10/16/20 10/17/20 23:59 23:59 23:59 Intake Total 2150 / 2150 600 / 600 500 / 500 Output Total 500 / 500 Balance 1650 / 1650 600 / 600 500 / 500 Medical Nutrition Assessment Dietitian: Nutrition Therapy Diagnosis Start: 10/13/20 08:24 Freq: Status: Active Protocol: Document 10/13/20 08:51 HUA (Rec: 10/13/20 08:51 SLA [id number]) Nutrition Malnutrition Evidence of Malnutrition Exists No Clinical Problem Unintended Weight Gain Etiology related to limited mobility and issues w/ lymphedema Signs/Symptoms as evidenced by 9% wt gain in past several months and BMI > 70 Status Active Problem Altered Nutrient-Related Laboratory Values Etiology related to steroid use Signs/Symptoms as evidenced by gluc 131 Status Active Problem Recommendation Dietitian Recommendations/Changes Will continue liberal Regular diet per pt preference Lab / Micro Data Result Diagrams: 10/17/20 06:24 10/17/20 06:24 Labs: Laboratory Results - last 24 hr 10/17/20 06:24: WBC 6.7, RBC 4.14 L, Hgb 10.2 L, Hct 39.1, MCV 94.4 D, MCH 24.6 L, MCHC 26.1 L D, RDW Std Deviation 59.3 H, RDW Coeff of Fanny 17.2 H, Plt Count 356, MPV 10.0, Immature Gran % (Auto) 1.500 H, Neut % (Auto) 77.7 H, Lymph % (Au to) 13.4 L, [place] % (Auto) 7.0, Eos % (Auto) 0.0, Baso % (Auto) 0.4, Absolute Neuts (auto) 5.2, Absolute Lymphs (auto) 0.90, Nucleated RBC % 0.3 10/17/20 06:24: Sodium 132 L, Potassium 4.9, Chloride 98, Carbon Dioxide 32.0, Anion Gap 2 L, BUN 20 H, Creatinine 0.59, Estim Creat Clear Calc 115.10, Est GFR (MDRD) Af Amer 141, Est GFR (MDRD) Non-Af 117, BUN/Creatinine Ratio 33.7 H, Glucose 106, Calcium 8.5 Micro: Microbiology 10/13/20 10:25 Sputum, Expectorated/Coughed Gram Stain - Final 10/13/20 10:25 Sputum, Expectorated/Coughed Respiratory Culture - Final Presumptive C albicans 10/14/20 10:40 Urine, Clean Catch Legionella Antigen - Final 10/14/20 10:40 Urine, Clean Catch Streptococcus pneumoniae Antigen (M - Final 10/12/20 14:40 Blood Culture (Wb) #2 - Arm Right Blood Culture - Preliminary No growth in 48 hours. 10/12/20 14:20 Blood Culture (Wb) - Left Forearm Blood Culture - Preliminary No growth in 48 hours. 10/12/20 14:40 Mucosa - Nose SARS-CoV-2 Antigen (Rapid) - Final SARS-CoV-2 (COVID 19) Rhythm Strip Rhythm Strip: Sinus Tach Rate: 104 Ectopy: None Physical Exam Const alert and no apparent distress Nutritional Appearance: morbidly obese Eyes PERRL, EOMs intact bilaterally, conjunctivae normal and no scleral icterus Chest inspection of chest normal Chest: symmetrical chest wall rise Resp normal respiratory effort and no use of accessory muscles Auscultation: diminished lung sounds; Negative for rales, rhonchi or wheezes GI GI Narrative: Significantly limited exam secondary to body habitus Extremity General Extremity: edema; Negative for clubbing or cyanosis Skin Skin Narrative: superficial abrasions/ulcers on LE. no erythema on LE. Neuro oriented x3, CN's II-XII intact bilaterally and moves all extremities Psych mental status grossly normal, thought process normal and cooperative Charges/Coding Visit Charges Inpatient E&M: 89029 Subs Hosp L2
[2020-10-17] MEDS: Furosemide 40 MG Tablet PO (09:56)
[2020-10-17] MEDS: dexAMETHasone 4 MG Tablet 6 MG PO (09:56)
[2020-10-17] MEDS: DULoxetine Hcl 20 MG Capsule PO ×2 (09:56→20:20)
[2020-10-17] MEDS: Famotidine 20 MG Tablet PO ×2 (09:56→20:20)
--- NOTE | 2020-10-17 11:38 | CASEMGMT ---
JAN VÁZQUEZ NOTE: Pt screened with [facility] Palliative Care Screening Tool for strata 3, pt did not meet criteria. Shira FORTEN RN CM
--- NOTE | 2020-10-17 12:12 | PCM.PN.HOSP ---
Subjective Subjective Still with PACHECO. Oxygen decreased to 3 liters. Objective Data Objective Data Vital Signs: Vital Signs Temp Pulse Resp BP Pulse Ox 36.7 C 78 19 H 139/67 H 93 10/17/20 09:37 10/17/20 09:37 10/17/20 09:37 10/17/20 09:37 10/17/20 09:37 Oxygen Flow Rate (L/min) 3 Oxygen Delivery Method Nasal Cannula Weight: 205.1 kg Body Mass Index (BMI) 72.8 Intake & Output: Intake and Output for Last 24 Hours 10/15/20 10/16/20 10/17/20 23:59 23:59 23:59 Intake Total 2150 / 2150 600 / 600 500 / 500 Output Total 500 / 500 Balance 1650 / 1650 600 / 600 500 / 500 Medical Nutrition Assessment Dietitian: Nutrition Therapy Diagnosis Start: 10/13/20 08:24 Freq: Status: Active Protocol: Document 10/13/20 08:51 HUA (Rec: 10/13/20 08:51 SLA [id number]) Nutrition Malnutrition Evidence of Malnutrition Exists No Clinical Problem Unintended Weight Gain Etiology related to limited mobility and issues w/ lymphedema Signs/Symptoms as evidenced by 9% wt gain in past several months and BMI > 70 Status Active Problem Altered Nutrient-Related Laboratory Values Etiology related to steroid use Signs/Symptoms as evidenced by gluc 131 Status Active Problem Recommendation Dietitian Recommendations/Changes Will continue liberal Regular diet per pt preference Lab / Micro Data Result Diagrams: 10/17/20 06:24 10/17/20 06:24 Labs: Laboratory Results - last 24 hr 10/17/20 06:24: WBC 6.7, RBC 4.14 L, Hgb 10.2 L, Hct 39.1, MCV 94.4 D, MCH 24.6 L, MCHC 26.1 L D, RDW Std Deviation 59.3 H, RDW Coeff of Fanny 17.2 H, Plt Count 356, MPV 10.0, Immature Gran % (Auto) 1.500 H, Neut % (Auto) 77.7 H, Lymph % (Auto) 13.4 L, [place] % (Auto) 7.0, Eos % (Auto) 0.0, Baso % (Auto) 0.4, Absolute Neuts (auto) 5.2, Absolute Lymphs (auto) 0.90, Nucleated RBC % 0.3 08/03/21 06:24: Sodium 132 L, Potassium 4.9, Chloride 98, Carbon Dioxide 32.0, Anion Gap 2 L, BUN 20 H, Creatinine 0.59, Estim Creat Clear Calc 115.10, Est GFR (MDRD) Af Amer 141, Est GFR (MDRD) Non-Af 117, BUN/Creatinine Ratio 33.7 H, Glucose 106, Calcium 8.5 Micro: Microbiology 10/13/20 10:25 Sputum, Expectorated/Coughed Gram Stain - Final 10/13/20 10:25 Sputum, Expectorated/Coughed Respiratory Culture - Final Presumptive C albicans 10/14/20 10:40 Urine, Clean Catch Legionella Antigen - Final 10/14/20 10:40 Urine, Clean Catch Streptococcus pneumoniae Antigen (M - Final 10/12/20 14:40 Blood Culture (Wb) #2 - Arm Right Blood Culture - Preliminary No growth in 48 hours. 10/12/20 14:20 Blood Culture (Wb) - Left Forearm Blood Culture - Preliminary No growth in 48 hours. 10/12/20 14:40 Mucosa - Nose SARS-CoV-2 Antigen (Rapid) - Final SARS-CoV-2 (COVID 19) Rhythm Strip Rhythm Strip: Sinus Tach Rate: 104 Ectopy: None Physical Exam Const alert HEENT head/scalp atraumatic and moist oral mucous membranes Head and Scalp: normocephalic Resp normal respiratory effort, no use of accessory muscles and clear to auscultation bilaterally Cardio regular rate, regular rhythm, S1 normal heart sound and S2 normal heart sound GI normal to inspection, nondistended, normoactive bowel sounds, soft to palpation, non-tender and non-distended Extremity normal to inspection Neuro Sensorium / Orientation: awake and alert Assessment & Plan Assessment/Plan (1) COVID-19 virus infection: (2) Acute respiratory failure with hypoxia: (3) Morbid obesity: PLAN: 1. Acute COVID-19 pneumonia Date of onset 10/05/2020 Patient was unvaccinated. 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 I asked her specifically what was the reaction, she said she was seeping from everywhere. She said she got COVID-19 while at [facility], however, her whole family at home got it around the same time. Plan: Continue with dexamethasone for 10 days and remdesivir. 2. Acute hypoxic respiratory failure Secondary COVID-19 Now down to 3l iter/m Wean oxygen as tolerated Discussed with patient about if her condition gets worse may need to consider air Vo, BiPAP or even intubation. 3. Epistaxis Resolved Secondary to high flow oxygen, as well as enoxaparin Improved after change enoxaparin to heparin 4. Morbid obesity Complicates care and recovery Will benefit from bariatric evaluation as outpatient 5. Right lower extremity cellulitis Resolved 6. VTE prophylaxis Subcu heparin Charges/Coding Visit Charges Inpatient E&M: 95131 Subs Hosp L2
[2020-10-17] MEDS: Nystatin Powder 15gm Bottle 1 APPLIC TOPICAL ×2 (18:26→20:21)
[2020-10-17] MEDS: Gabapentin 300 MG Capsule PO (18:37)
[2020-10-17] MEDS: Ibuprofen 400 MG Tablet PO (18:37)
[2020-10-17] MEDS: Montelukast 10 MG Tablet PO (20:21)
[2020-10-18] VITALS (11 sets, daily range): BP systolic 149–155; BP diastolic 86–92; PULSE 69–89; RESP 18–20; TEMP 36.4–36.8; O2SAT 6–96
[2020-10-18] MEDS: Heparin Injection (Vial) 5,000 UNIT/ML VIAL 5000 UNIT SC ×3 (06:24→21:44)
[2020-10-18 07:00] LABS: Absolute Lymphocyte Count 1.16 X10^3/uL (0.83-4.51); Absolute Neutrophil Count 6.3 X10^3/uL (2.0-7.7); Basophil# 0.01 X10^3/uL; Basophil% 0.1 % (0-1); Eosinophil# 0.01 X10^3/uL; Eosinophils% 0.1 % (0-5); Hematocrit 36.2 % (37-47); Hemoglobin 10.2 g/dL (12.0-15.0); Lymphocyte # 1.16 X10^3/ul (0.83-4.51); Lymphocyte % 14.1 % (19-41); Mean Corp Hgb Conc 28.2 g/dL (32-36); Mean Corpuscular Hgb 24.8 pg (27.0-32.0); Mean Corpuscular Volume 87.9 fL (81-99); Mean Platelet Vol. 9.7 fl (6.2-12.0); Monocyte# 0.62 X10^3/uL; Monocyte% 7.5 % (0-10); NRBC Flagged by Analyzer 0 % (0-5); Neutrophil # 6.34 X10^3/uL (2.7-7.7); Neutrophil % 76.9 % (47-70); POSITIVE COUNT YES; Platelet Count 376 K/mm3 (150-450); RBC Distribution Width CV 17.2 % (11.6-14.6); RBC Distribution Width SD 54.5 fl (35.1-43.9); Red Blood Count 4.12 M/mm3 (4.2-5.4); White Blood Count 8.3 K/mm3 (4.4-11.0)
[2020-10-18 07:06] LABS: Differential Indicated SCAN CRITERIA MET
[2020-10-18 07:25] LABS: Anion Gap 2 (5-15); BUN 20 mg/dL (7-18); BUN/Creat Ratio 35.5 RATIO (10-20); Calcium,Total 8.8 mg/dL (8.5-10.1); Chloride 97 mmol/L (98-107); Creatinine, Serum 0.56 mg/dL (0.55-1.02); EST Glomerular Filtration Rate 124 mL/min (>60); Est Glom Filt Rate - Afr Amer 150 mL/min (>60); Estimated Creatinine Clearance 121.26 ml/min; Glucose 102 mg/dL (74-106); Potassium 4.7 mmol/L (3.5-5.1); Sodium Level 132 mmol/L (136-145)
--- NOTE | 2020-10-18 08:06 | PCM.PN.INT ---
Assessment & Plan Assessment/Plan (1) COVID-19 virus infection: PLAN: RECOMMENDATIONS: 1. Wean supplemental oxygen to maintain saturations at or above 90%. 2. Encourage incentive spirometer use and mobilize patient as tolerated. 3. Completed remdesivir. No need to monitor liver and renal function accordingly. 4. Continue Decadron to complete 10-day treatment course. 5. Obtain walking oximetry. Okay to discharge if tolerates ambulation on 6 L or less 6. Encourage nasal saline 7. Okay to discharge from a pulmonary perspective following walking oximetry IMPRESSIONS: 1. Acute hypoxemic respiratory failure secondary to COVID-19 pneumonia (probable delta variant) The patient initially presented with hypoxemia and shortness of breath and was found to be positive for coronavirus on rapid antigen testing. She is currently being maintained on appropriate therapy with remdesivir and Decadron. The patient's oxygenation status is stable. She is currently maintaining appropriate saturations on 3 L of supplemental oxygen via nasal cannula. Agree with continuing heparin for prophylaxis. Encourage incentive spirometer use. Wean supplemental oxygen to maintain saturations at or above 90%. Mobilize patient as tolerated. Clinical suspicion for increased oxygen requirement secondary to epistaxis. Patient's immunized daughter has now tested positive for COVID-19 increasing likelihood that this represents a delta variant. Treatment would be unchanged from typical Covid. The patient can ambulate on 6 L or less, okay to discharge from pulmonary perspective with follow-up in 4 weeks at our office 2. Suspected sleep apnea/alveolar hypoventilation The patient did present with an elevated bicarbonate. This is likely chronic for the patient. Although she does report having had a sleep study done previously, she reported that she was told that she did not have sleep apnea. I highly doubt that the patient does not have some form of sleep apnea, based upon her body habitus. It is certainly reasonable to place the patient empirically on BiPAP therapy on a nightly basis, if she is agreeable. Patient is yet to use BiPAP overnight. 3. Super morbid obesity/anemia/self-reported asthma/recent diagnosis of cellulitis/neuropathy Complicates care, management, recovery and prognosis. Continue home medications as indicated. This note was generated with [employer] software. It may contain incorrect words, spelling, and punctuation that were not noted in checking the note before signing. Subjective Subjective Patient did okay overnight. Patient is not reporting any recurrent epistaxis. Patient is reporting significant cough, especially with ambulation. Patient continues to report generalized body aches. Objective Data Objective Data Vital Signs: Vital Signs Temp Pulse Resp BP Pulse Ox 36.5 C L 69 18 149/91 H 96 10/18/20 02:24 10/18/20 02:24 10/18/20 02:24 10/18/20 02:24 10/18/20 04:00 Oxygen Flow Rate (L/min) 3 Oxygen Delivery Method Nasal Cannula Weight: 205 kg Body Mass Index (BMI) 72.8 Intake & Output: Intake and Output for Last 24 Hours 10/16/20 10/17/20 10/18/20 23:59 23:59 23:59 Intake Total 600 / 600 1400 / 2000 900 / 900 Balance 600 / 600 1400 / 2000 900 / 900 Medical Nutrition Assessment Dietitian: Nutrition Therapy Diagnosis Start: 10/13/20 08:24 Freq: Status: Active Protocol: Document 10/13/20 08:51 HUA (Rec: 10/13/20 08:51 SLA [id number]) Nutrition Malnutrition Evidence of Malnutrition Exists No Clinical Problem Unintended Weight Gain Etiology related to limited mobility and issues w/ lymphedema Signs/Symptoms as evidenced by 9% wt gain in past several months and BMI > 70 Status Active Problem Altered Nutrient-Related Laboratory Values Etiology related to steroid use Signs/Symptoms as evidenced by gluc 131 Status Active Problem Recommendation Dietitian Recommendations/Changes Will continue liberal Regular diet per pt preference Lab / Micro Data Result Diagrams: 10/18/20 06:51 10/18/20 06:51 Labs: Laboratory Results - last 24 hr 10/18/20 06:51: WBC 8.3, RBC 4.12 L, Hgb 10.2 L, Hct 36.2 L, MCV 87.9 D, MCH 24.8 L, MCHC 28.2 L D, RDW Std Deviation 54.5 H, RDW Coeff of Fanny 17.2 H, Plt Count 376, MPV 9.7, Immature Gran % (Auto) 1.300 H, Neut % (Auto) 76.9 H, Lymph % (Auto) 14.1 L, [place] % (Auto) 7.5, Eos % (Auto) 0.1, Baso % (Auto) 0.1, Absolute Neuts (auto) 6.3, Absolute Lymphs (auto) 1.16, Nucleated RBC % 0 10/18/20 06:51: Sodium 132 L, Potassium 4.7, Chloride 97 L, Carbon Dioxide 33.0 H, Anion Gap 2 L, BUN 20 H, Creatinine 0.56, Estim Creat Clear Calc 121.26, Est GFR (MDRD) Af Amer 150, Est GFR (MDRD) Non-Af 124, BUN/Creatinine Ratio 35.5 H, Glucose 102, Calcium 8.8 Micro: Microbiology 10/12/20 14:40 Blood Culture (Wb) #2 - Arm Right Blood Culture - Final No growth in 5 days. 10/12/20 14:20 Blood Culture (Wb) - Left Forearm Blood Culture - Final No growth in 5 days. 10/13/20 10:25 Sputum, Expectorated/Coughed Gram Stain - Final 10/13/20 10:25 Sputum, Expectorated/Coughed Respiratory Culture - Final Presumptive C albicans 10/14/20 10:40 Urine, Clean Catch Legionella Antigen - Final 10/14/20 10:40 Urine, Clean Catch Streptococcus pneumoniae Antigen (M - Final 10/12/20 14:40 Mucosa - Nose SARS-CoV-2 Antigen (Rapid) - Final SARS-CoV-2 (COVID 19) Rhythm Strip Rhythm Strip: Sinus Tach Rate: 104 Ectopy: None Physical Exam Const alert and no apparent distress Nutritional Appearance: morbidly obese Eyes PERRL, EOMs intact bilaterally, conjunctivae normal and no scleral icterus Chest inspection of chest normal Chest: symmetrical chest wall rise Resp normal respiratory effort and no use of accessory muscles Auscultation: diminished lung sounds; Negative for rales, rhonchi or wheezes GI GI Narrative: Significantly limited exam secondary to body habitus Extremity General Extremity: edema; Negative for clubbing or cyanosis Skin Skin Narrative: superficial abrasions/ulcers on LE. no erythema on LE. Neuro oriented x3, CN's II-XII intact bilaterally and moves all extremities Psych mental status grossly normal, thought process normal and cooperative Charges/Coding Visit Charges Inpatient E&M: 09555 Subs Hosp L2
--- NOTE | 2020-10-18 09:05 | NURSING ---
within less than 5 minutes recovery time on 6L NC oxygen, pt spo2 93%.
[2020-10-18] MEDS: dexAMETHasone 4 MG Tablet 6 MG PO (09:07)
[2020-10-18] MEDS: Furosemide 40 MG Tablet PO ×3 (09:07→21:43)
[2020-10-18] MEDS: Famotidine 20 MG Tablet PO ×2 (09:08→21:43)
[2020-10-18] MEDS: Nystatin Powder 15gm Bottle 1 APPLIC TOPICAL ×2 (09:08→21:44)
[2020-10-18] MEDS: DULoxetine Hcl 20 MG Capsule PO ×2 (09:08→21:42)
--- NOTE | 2020-10-18 09:23 | PN.HOSP_ITS ---
Subjective Subjective Breathing well. Coughing up some phlegm. Objective Data Objective Data Vital Signs: Vital Signs Temp Pulse Resp BP Pulse Ox 36.8 C 78 20 H 150/90 H 91 10/18/20 08:52 10/18/20 09:12 10/18/20 08:52 10/18/20 08:52 10/18/20 09:12 Oxygen Flow Rate (L/min) [ 5 AMBULATING with Oxygen #3] Oxygen Flow Rate (L/min) [ 90 AMBULATING with Oxygen #2] Oxygen Flow Rate (L/min) [ 3 AMBULATING with Oxygen #1] Oxygen Flow Rate (L/min) [At 3 REST with Oxygen] Oxygen Flow Rate (L/min) 3 Oxygen Delivery Method Nasal Cannula Weight: 205 kg Body Mass Index (BMI) 72.8 Intake & Output: Intake and Output for Last 24 Hours 10/16/20 10/17/20 10/18/20 23:59 23:59 23:59 Intake Total 600 / 600 1400 / 2000 900 / 900 Balance 600 / 600 1400 / 2000 900 / 900 Medical Nutrition Assessment Dietitian: Nutrition Therapy Diagnosis Start: 10/13/20 08:24 Freq: Status: Active Protocol: Document 10/13/20 08:51 SLA (Rec: 10/13/20 08:51 SLA [id number]) Nutrition Malnutrition Evidence of Malnutrition Exists No Clinical Problem Unintended Weight Gain Etiology related to limited mobility and issues w/ lymphedema Signs/Symptoms as evidenced by 9% wt gain in past several months and BMI > 70 Status Active Problem Altered Nutrient-Related Laboratory Values Etiology related to steroid use Signs/Symptoms as evidenced by gluc 131 Status Active Problem Recommendation Dietitian Recommendations/Changes Will continue liberal Regular diet per pt preference Lab / Micro Data Result Diagrams: 10/18/20 06:51 10/18/20 06:51 Labs: Laboratory Results - last 24 hr 10/18/20 06:51: WBC 8.3, RBC 4.12 L, Hgb 10.2 L, Hct 36.2 L, MCV 87.9 D, MCH 24.8 L, MCHC 28.2 L D, RDW Std Deviation 54.5 H, RDW Coeff of Fanny 17.2 H, Plt Count 376, MPV 9.7, Immature Gran % (Auto) 1.300 H, Neut % (Auto) 76.9 H, Lymph % (Auto) 14.1 L, [place] % (Auto) 7.5, Eos % (Auto) 0.1, Baso % (Auto) 0.1, Absolute Neuts (auto) 6.3, Absolute Lymphs (auto) 1.16, Nucleated RBC % 0 10/18/20 06:51: Sodium 132 L, Potassium 4.7, Chloride 97 L, Carbon Dioxide 33.0 H, Anion Gap 2 L, BUN 20 H, Creatinine 0.56, Estim Creat Clear Calc 121.26, Est GFR (MDRD) Af Amer 150, Est GFR (MDRD) Non-Af 124, BUN/Creatinine Ratio 35.5 H, Glucose 102, Calcium 8.8 Micro: Microbiology 10/12/20 14:40 Blood Culture (Wb) #2 - Arm Right Blood Culture - Final No growth in 5 days. 10/12/20 14:20 Blood Culture (Wb) - Left Forearm Blood Culture - Final No growth in 5 days. 10/13/20 10:25 Sputum, Expectorated/Coughed Gram Stain - Final 10/13/20 10:25 Sputum, Expectorated/Coughed Respiratory Culture - Final Presumptive C albicans 10/14/20 10:40 Urine, Clean Catch Legionella Antigen - Final 10/14/20 10:40 Urine, Clean Catch Streptococcus pneumoniae Antigen (M - Final 10/12/20 14:40 Mucosa - Nose SARS-CoV-2 Antigen (Rapid) - Final SARS-CoV-2 (COVID 19) Rhythm Strip Rhythm Strip: Sinus Tach Rate: 104 Ectopy: None Physical Exam Const alert HEENT Head and Scalp: normocephalic Neck no lymphadenopathy Resp normal respiratory effort and no use of accessory muscles Resp Narrative: coarse BS bilaterally. Cardio regular rate, regular rhythm, S1 normal heart sound and S2 normal heart sound GI normal to inspection, nondistended, normoactive bowel sounds, soft to palpation, non-tender and non-distended Extremity normal to inspection Psych affect normal Assessment & Plan Assessment/Plan (1) COVID-19 virus infection: (2) Acute respiratory failure with hypoxia: (3) Morbid obesity: PLAN: 1. Acute COVID-19 pneumonia Date of onset 10/05/2020 Patient was unvaccinated. 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 I asked her specifically what was the reaction, she said she was seeping from everywhere. She said she got COVID-19 while at [facility], however, her whole family at home got it around the same time. Plan: Continue with dexamethasone for 10 days and remdesivir. 2. Acute hypoxic respiratory failure Secondary COVID-19 Now down to 3l iter/m Wean oxygen as tolerated Discussed with patient about if her condition gets worse may need to consider air Vo, BiPAP or even intubation. Increase diuresis and monitor. Pulse ox 89% on 3 liters, dropped down 85% on 3l w ambulation 3. Epistaxis Resolved Secondary to high flow oxygen, as well as enoxaparin Improved after change enoxaparin to heparin 4. Morbid obesity Complicates care and recovery Will benefit from bariatric evaluation as outpatient 5. Right lower extremity cellulitis Resolved 6. VTE prophylaxis Subcu heparin Charges/Coding Visit Charges Inpatient E&M: 78838 Subs Hosp L2
[2020-10-18] MEDS: Ibuprofen 400 MG Tablet PO (14:52)
[2020-10-18] MEDS: Montelukast 10 MG Tablet PO (21:44)
[2020-10-19] VITALS (14 sets, daily range): BP systolic 145–180; BP diastolic 79–97; PULSE 72–93; RESP 18–20; TEMP 36.3–36.7; O2SAT 3–96
[2020-10-19] MEDS: Heparin Injection (Vial) 5,000 UNIT/ML VIAL 5000 UNIT SC ×3 (05:13→22:08)
[2020-10-19] MEDS: Gabapentin 300 MG Capsule PO ×3 (05:13→18:51)
[2020-10-19] MEDS: Furosemide 40 MG Tablet PO ×3 (05:13→22:04)
--- NOTE | 2020-10-19 06:19 | NURSING ---
performed walking pulse ox this am. Pt was 93% on 3L NC, after approximately 1.5 minutes on RA pt dropped down to 80%, reapplied O2 after pt walked in place in room and it took 6 L NC to get her pulse ox up to 88% and it never got any higher while she stood.
[2020-10-19 06:58] LABS: Absolute Neutrophil Count 7.6 X10^3/uL (2.0-7.7); Basophil# 0.01 X10^3/uL; Basophil% 0.1 % (0-1); Eosinophil# 0.01 X10^3/uL; Eosinophils% 0.1 % (0-5); Hematocrit 35.6 % (37-47); Hemoglobin 10.4 g/dL (12.0-15.0); Lymphocyte % 13.3 % (19-41); Mean Corp Hgb Conc 29.2 g/dL (32-36); Mean Corpuscular Hgb 24.9 pg (27.0-32.0); Mean Corpuscular Volume 85.2 fL (81-99); Monocyte# 0.69 X10^3/uL; Monocyte% 7.1 % (0-10); NRBC Flagged by Analyzer 0 % (0-5); Neutrophil # 7.63 X10^3/uL (2.7-7.7); Neutrophil % 78.4 % (47-70); Platelet Count 419 K/mm3 (150-450); RBC Distribution Width CV 17.1 % (11.6-14.6); RBC Distribution Width SD 51.7 fl (35.1-43.9); Red Blood Count 4.18 M/mm3 (4.2-5.4); White Blood Count 9.7 K/mm3 (4.4-11.0)
[2020-10-19 07:22] LABS: ALB/GLOB Ratio 0.4 RATIO (0.9-2.4); AST(SGOT) 33 U/L (15-37); Alanine Aminotransfer ALT/SGPT 61 U/L (13-56); Albumin, Serum 2.6 g/dL (3.2-5.0); Alkaline Phosphatase 108 U/L (45-117); Anion Gap 4 (5-15); BUN 19 mg/dL (7-18); BUN/Creat Ratio 28.2 RATIO (10-20); Chloride 95 mmol/L (98-107); Creatinine, Serum 0.67 mg/dL (0.55-1.02); EST Glomerular Filtration Rate 101 mL/min (>60); Est Glom Filt Rate - Afr Amer 122 mL/min (>60); Estimated Creatinine Clearance 101.35 ml/min; Glucose 121 mg/dL (74-106); Potassium 3.7 mmol/L (3.5-5.1); Protein, Total 8.6 g/dL (6.4-8.2); Sodium Level 133 mmol/L (136-145)
[2020-10-19] MEDS: dexAMETHasone 4 MG Tablet 6 MG PO (08:53)
[2020-10-19] MEDS: Famotidine 20 MG Tablet PO ×2 (08:53→22:04)
[2020-10-19] MEDS: Nystatin Powder 15gm Bottle 1 APPLIC TOPICAL ×2 (08:53→22:04)
[2020-10-19] MEDS: DULoxetine Hcl 20 MG Capsule PO ×2 (08:53→22:04)
[2020-10-19] MEDS: Ibuprofen 400 MG Tablet PO ×2 (08:54→18:51)
--- NOTE | 2020-10-19 11:59 | CASEMGMT ---
Addendum entered by Suma Spicer 10/19/20 14:43: SW spoke w/pt's block and case maker Amber([phone]) from [place], as she was asking about any resources to help pt get a bed. SW gave Amber numbers for [facility], [facility], and to [facility](to see if there are any resources they may utilize). SW will call Amber back should SW have any additional resources. RUSLAN Lew Addendum entered by Suma Spicer 10/19/20 13:06: SW spoke w/physician, plan will be for pt to be discharged tomorrow, she will be medically ready. SW called pt to let her know, pt states understanding that she will be discharged tomorrow. RUSLAN Lew Original Note: SW spoke w/pt in regard to discharge plan. Pt states she still plans to go home and does not want to go to a fpc facility. SW did ask pt to participate in therapy to make sure she can manage at home. (If pt were to go to SNF, we would need to find a facility that takes her insurance, takes COVID+ patients and can take bariatric patients, and a precert would be needed). However, pt states that everyone at home(3 children and her mother) are all sick with COVID. They are trying to get things set up for pt at home but they are all still so sick. Pt feels she can go home but her family needs a day or two to get everything set up for home. SW explained that the plan is not to discharge pt today, tomorrow would be the soonest. Pt spoke at length about how awful everyone at home is feeling and how tough it would be for her to go home today or even tomorrow. SW offered supportive listening. SW explained will speak w/physician in regard to this. SW asked pt about home health, pt states she does not think she needs home health. She did ask about getting a smaller shower chair that can hold her weight, SW let CM know. Pt did also tell SW that they were getting ready to bomb the house before everyone got sick, upon further discussion, pt states they have bed bugs. She states also she needs a new mattress as hers was infested with spiders, and she is allergic to spiders. SW will continue to follow, texted physician to update him. RUSLAN Lew
--- NOTE | 2020-10-19 12:46 | CASEMGMT ---
Addendum entered by Poly Allison 10/19/20 15:32: Call placed to [facility] and she confirms she received the faxed script for the shower chair. Addendum entered by Poly Allison 10/19/20 14:25: VM received back from [facility] CM, Amber Rosas. She states she is working on getting a Kathia lift for pt in addition to a mattress. She has also been continuing to work on trying to find HHC agency for pt. She also inquired if pt would be discharging home on Oxygen. Call placed back to Amber and she was notified that pt will most likely discharge home on oxygen tomorrow and that pt does not feel that she needs HHC at this time. Addendum entered by Poly Allison 10/19/20 13:39: Per pt, the Bariatric Rollator was delivered to her room by Nina and she has been using it. Addendum entered by Poly Allison 10/19/20 13:29: Script for bariatric shower chair w/no back faxed to [employer] [facility] at this time. [facility] made aware pt is @ [facility] and plan is to discharge home tomorrow. [facility] to contact pt re: delivery of shower chair when it comes in. Pt made aware of same. Per pt, [employer] does not service deliveries from [employer] and [facility] does not have these items in stock and [facility] does not carry them. Pt will look into ordering chemical instrumentation officer and toilet aide through another drug store or on [employer]. She denies having any other concerns or needs at this time. Original Note: JAN VÁZQUEZ NOTE: Per therapy, pt would like a chemical instrumentation officer and toilet aide and per Noa pt's RN, pt interested in getting these items while she is @ [facility] and having them delivered via [employer] to be able to start using while she is hospitalized. Pt states she also needs a different shower chair, as the one she currently has does not work well in her tub shower. Per therapy, they discussed this with pt and feel a bariatric shower chair w/out a back should work in pt's shower. Call placed to [facility], they carry reachers and toilet aides but they would not be covered by pt's insurance and pt can order these on-line. Reachers are $14.99 and toilet aides are $19.99. Noa states she will give this information to pt when she goes in pt's room. Per [facility], they do not have bariatric shower chairs in stock, but she can order it and they will drop-ship it to pt's home. She states they are in-network w/[facility] and the shower chair would be covered at 100%. JAN VÁZQUEZ to obtain script for shower chair and will fax to [facility] when available. Shira SMITH RN CM
--- NOTE | 2020-10-19 13:57 | PN.HOSP_ITS ---
Subjective Subjective Breathing better overall, but still requiring oxygen. Does not feel well enough to manage independently at home and family unable to assist since they are all ill with COVID-19. Objective Data Objective Data Vital Signs: Vital Signs Temp Pulse Resp BP Pulse Ox 36.7 C 89 20 H 145/85 H 91 10/19/20 08:48 10/19/20 11:42 10/19/20 08:48 10/19/20 08:48 10/19/20 13:05 Oxygen Flow Rate (L/min) [ 5 AMBULATING with Oxygen #3] Oxygen Flow Rate (L/min) [ 93 AMBULATING with Oxygen #2] Oxygen Flow Rate (L/min) [ 89 AMBULATING with Oxygen #1] Oxygen Flow Rate (L/min) [At 3 REST with Oxygen] Oxygen Flow Rate (L/min) 3 Oxygen Delivery Method Nasal Cannula Weight: 204.842 kg Body Mass Index (BMI) 72.8 Intake & Output: Intake and Output for Last 24 Hours 10/17/20 10/18/20 10/19/20 23:59 23:59 23:59 Intake Total 1399 1200 / 1200 300 / 300 Balance 1400 / 1999 1200 / 1200 300 / 300 Medical Nutrition Assessment Dietitian: Nutrition Therapy Diagnosis Start: 10/13/20 08:24 Freq: Status: Active Protocol: Document 10/18/20 11:26 RMA (Rec: 10/18/20 11:26 RMA [id number]) Nutrition Malnutrition Evidence of Malnutrition Exists No Intake Problem Decreased Nutrient Needs (specify) Etiology for salt/sodium related to lasix Signs/Symptoms as evidenced by lymphedema and recent wt gain Status Active Problem Clinical Problem Unintended Weight Gain Etiology related to limited mobility and issues w/ lymphedema Signs/Symptoms as evidenced by 9% wt gain in past several months and BMI 72 .9 Status Active Problem Recommendation Dietitian Recommendations/Changes Will change diet to sodium- restricted to better manage fluid status; consider fluid/ calorie restriction as intake improves. Lab / Micro Data Result Diagrams: 10/19/20 06:36 10/19/20 06:36 Labs: Laboratory Results - last 24 hr 10/19/20 06:36: WBC 9.7, RBC 4.18 L, Hgb 10.4 L, Hct 35.6 L, MCV 85.2, MCH 24.9 L, MCHC 29.2 L, RDW Std Deviation 51.7 H, RDW Coeff of Fanny 17.1 H, Plt Count 419, MPV 10.0, Immature Gran % (Auto) 1.000 H, Neut % (Auto) 78.4 H, Lymph % (Auto) 13.3 L, [place] % (Auto) 7.1, Eos % (Auto) 0.1, Baso % (Auto) 0.1, Absolute Neuts (auto) 7.6, Absolute Lymphs (auto) 1.30, Nucleated RBC % 0 10/19/20 06:36: Sodium 133 L, Potassium 3.7, Chloride 95 L, Carbon Dioxide 34.0 H, Anion Gap 4 L, BUN 19 H, Creatinine 0.67, Estim Creat Clear Calc 101.35, Est GFR (MDRD) Af Amer 122, Est GFR (MDRD) Non-Af 101, BUN/Creatinine Ratio 28.2 H, Glucose 121 H, Calcium 9.0, Total Bilirubin 0.40, AST 33, ALT 61 H, Alkaline Phosphatase 108, Total Protein 8.6 H, Albumin 2.6 L, Globulin 6.0 H, Albumin/Globulin Ratio 0.4 L Micro: Microbiology 10/12/20 14:40 Blood Culture (Wb) #2 - Arm Right Blood Culture - Final No growth in 5 days. 10/12/20 14:20 Blood Culture (Wb) - Left Forearm Blood Culture - Final No growth in 5 days. 10/13/20 10:25 Sputum, Expectorated/Coughed Gram Stain - Final 10/13/20 10:25 Sputum, Expectorated/Coughed Respiratory Culture - Final Presumptive C albicans 10/14/20 10:40 Urine, Clean Catch Legionella Antigen - Final 10/14/20 10:40 Urine, Clean Catch Streptococcus pneumoniae Antigen (M - Final 10/12/20 14:40 Mucosa - Nose SARS-CoV-2 Antigen (Rapid) - Final SARS-CoV-2 (COVID 19) Rhythm Strip Rhythm Strip: Sinus Tach Rate: 104 Ectopy: None Physical Exam Const alert HEENT Head and Scalp: normocephalic Resp normal respiratory effort, no use of accessory muscles and clear to auscultation bilaterally Cardio regular rate, regular rhythm, S1 normal heart sound and S2 normal heart sound GI normal to inspection, nondistended, normoactive bowel sounds, soft to palpation, non-tender and non-distended Extremity normal to inspection Skin Skin Narrative: superficial lesions on arms and legs of different stages of scab/healing. Neuro Sensorium / Orientation: awake Assessment & Plan Assessment/Plan (1) COVID-19 virus infection: (2) Acute respiratory failure with hypoxia: (3) Morbid obesity: PLAN: 1. Acute COVID-19 pneumonia Date of onset 10/05/2020 Patient was unvaccinated. Patient stated that she was told by her ski lift mechanic and Home not to get the COVID-19 vaccine because she had an adverse reaction to the influenza vaccine. I asked her specifically what was the reaction, she said she was seeping from everywhere. She said she got COVID-19 while at [facility], however, her whole family at home got it around the same time. Plan: Continue with dexamethasone for 10 days and remdesivir. 2. Acute hypoxic respiratory failure Secondary COVID-19 Now down to 3l iter/m Wean oxygen as tolerated Discussed with patient about if her condition gets worse may need to consider air Vo, BiPAP or even intubation. Increase diuresis and monitor. Was able to maintained on 4liters with limited activity (likely at her physical baseline given overall poor performance status) 3. Epistaxis Resolved Secondary to high flow oxygen, as well as enoxaparin Improved after change enoxaparin to heparin 4. Morbid obesity Complicates care and recovery Will benefit from bariatric evaluation as outpatient 5. Right lower extremity cellulitis Resolved 6. VTE prophylaxis Subcu heparin 7. Discharge planning From medical standpoint, patient is medically stable for discharge, however, patient does not feel that she can safely go home on her own and her family is currently ill with COVID-19 and unable to care for her. She does not want to go to a senior living facility. Plan is for discharge on 10/20. Charges/Coding Visit Charges Inpatient E&M: 68213 Subs Hosp L2
[2020-10-19] MEDS: Montelukast 10 MG Tablet PO (22:06)
[2020-10-20 04:19] VITALS: BP 158/103; PULSE 76; RESP 18; TEMP 36.3; O2SAT 96
[2020-10-20] MEDS: Heparin Injection (Vial) 5,000 UNIT/ML VIAL 5000 UNIT SC (04:25)
[2020-10-20] MEDS: Furosemide 40 MG Tablet PO (04:26)
[2020-10-20 09:06] VITALS: BP 150/84; PULSE 65; RESP 20; TEMP 36.3; O2SAT 94
[2020-10-20] MEDS: Nystatin Powder 15gm Bottle 1 APPLIC TOPICAL (09:09)
[2020-10-20] MEDS: DULoxetine Hcl 20 MG Capsule PO (09:09)
[2020-10-20] MEDS: dexAMETHasone 4 MG Tablet 6 MG PO (09:09)
[2020-10-20] MEDS: Famotidine 20 MG Tablet PO (09:09)
--- NOTE | 2020-10-20 09:21 | CASEMGMT ---
SW spoke w/pt in regard to how she is feeling today and mental health. Pt states is feeling better today, states got rest last night and turned a corner. Pt states also she would be agreeable to counseling resources, pt states she moved back home for medical reasons. She states that there are a lot of family dynamics. Pt declined having SW make an appointment for her, she will make an appointment for herself. SW gave list of counseling agencies in the area to RN to bring in to pt. No further social service needs, pt going home today. RUSLAN Lew
[2020-10-20 10:29] VITALS: O2SAT 86; O2SAT 90; O2SAT 92; O2SAT 95
--- NOTE | 2020-10-20 11:28 | CASEMGMT ---
TC to Nina, spoke with Anjelica who is aware that referral for O2 faxed for pt. She verified the bariatric rollator has been delivered. Gave nurse Mariluz script for pt outpt therapy.
--- NOTE | 2020-10-20 11:55 | DCINST_ITS ---
Discharge Instructions Diet Discharge Diet: 8 Cup Fluid Restriction Activity Discharge Activity: Return to Normal Activity and Use Walker Weight Bearing Status: Weight bearing as tolerated Follow Up Care Test Results: Test results from this visit will be discussed in further detail at your follow-up appointment, if applicable. Discharge Plan Admission Admit Date/Time: 10/12/20 15:41 Primary Reason for Your Visit: COVID-19 Attending Provider: Flip Vaughan Primary Care Provider: Mireille Dietz Consulting Providers: Lloyd Villarreal ; Edgardo Pozo ; Mau Pike ; Kisha Shoemaker SKIDDER DRIVER Discharge Orders/Prescriptions Prescriptions: New dexamethasone 4 mg Tablet 6 mg PO DAILY 3 Days Qty: 5 RF: 0 Continued duloxetine 20 mg Capsule, Delayed Rel Sprinkle 20 mg PO BID RF: 0 furosemide 40 mg Tablet 40 mg PO DAILY RF: 0 gabapentin 300 mg Capsule 300 mg PO TID PRN (Reason: muscle spasms) RF: 0 montelukast 10 mg Tablet 10 mg PO QHS RF: 0 ciclesonide 80 mcg/actuation Hfa Aerosol Inhaler 1 puff INHALATION BID RF: 0 albuterol sulfate 90 mcg/actuation Aerosol Powdr Breath Activated 1 inh INHALATION Q6H PRN (Reason: Wheezing) RF: 0 acetaminophen 650 mg Tablet Extended Release 1,300 mg PO Q12H RF: 0 ibuprofen 200 mg Tablet 400 mg PO DAILY PRN (Reason: Pain) RF: 0 Osteo Bi-Flex Triple Strength 750 mg-644 mg- 30 mg-1 mg Tablet 1 tab PO BID RF: 0 doxycycline hyclate 100 mg capsule 100 mg PO DAILY RF: 0 Referrals / Follow Up: Mireille Dietz MD [Primary Care Provider] - Care Physician,No Primary [NON-STAFF] - Disposition Disposition (needs filled in before D/C Order can be placed): Home, Self Care
--- NOTE | 2020-10-20 12:00 | PCM.DC.SUM ---
Providers Date of Admission: 10/12/20 Primary Care Physician: Dr. Mireille Dietz MD Consultations 10/12/20 17:12 Consult: Infectious Disease Routine Consulting Provider: Lloyd Villarreal Reason for Consult: Covid-19 EMERGENT Consult: No Notified: Yes Date Notified: 10/12/20 Time Notified: 17:24 Method of Notification: Text Consult: Banquet Set Up Person / Pulmonary Medicine Routine Consulting Provider: Pulmonary Medicine [facility] Reason for Consult: Covid-19 EMERGENT Consult: No Notified: Yes Date Notified: 10/12/20 Time Notified: 17:24 Method of Notification: Text Reason For Visit: SARS COV 2 PNEUMONIA Diagnosis Discharge Diagnosis (1) COVID-19 virus infection: Status: Acute Code(s): U07.1 - COVID-19 (2) Acute respiratory failure with hypoxia: Status: Acute Code(s): J96.01 - Acute respiratory failure with hypoxia (3) Morbid obesity: Status: Acute Code(s): E66.01 - Morbid (severe) obesity due to excess calories Medications at Discharge Home Medications Osteo Bi-Flex Triple Strength 1 tab PO BID 10/02/20 acetaminophen 1,300 mg PO Q12H 10/02/20 albuterol sulfate 1 inh INHALATION Q6H PRN 10/02/20 ciclesonide 1 puff INHALATION BID 10/02/20 duloxetine 20 mg PO BID 10/02/20 furosemide 40 mg PO DAILY 10/02/20 gabapentin 300 mg PO TID PRN 10/02/20 ibuprofen 400 mg PO DAILY PRN 10/02/20 montelukast 10 mg PO QHS 10/02/20 doxycycline hyclate 100 mg PO DAILY 10/12/20 dexamethasone 6 mg PO DAILY 3 Days #5 tab 10/20/20 Hospital Course Operations None Procedures None Summary of Care Provided Minutes Spent on Discharge: 32 Hospital Course: 1. Acute COVID-19 pneumonia Date of onset 10/05/2020 Patient was unvaccinated. Patient stated that she was told by her human services assistant and Home not to get the COVID-19 vaccine because she had an adverse reaction to the influenza vaccine. I asked her specifically what was the reaction, she said she was seeping from everywhere. She said she got COVID-19 while at [facility], however, her whole family at home got it around the same time. Plan: Continue with dexamethasone for 10 days and remdesivir. qSOFA 1, sepsis ruled out 2. Acute hypoxic respiratory failure Secondary COVID-19 Now down to 3l iter/m Wean oxygen as tolerated Discussed with patient about if her condition gets worse may need to consider air Vo, BiPAP or even intubation. Increase diuresis and monitor. Was able to maintained on 4liters with limited activity (likely at her physical baseline given overall poor performance status) 3. Epistaxis Resolved Secondary to high flow oxygen, as well as enoxaparin Improved after change enoxaparin to heparin 4. Morbid obesity Complicates care and recovery Will benefit from bariatric evaluation as outpatient 5. Right lower extremity cellulitis Resolved Is a 44-year-old white female presents with acute COVID-19. Patient was unvaccinated due to your reported history of allergic reactions due to other vaccinations. Patient was advised by her human services assistant in [place] not to get vaccinated. Commonly patient's family is also sick with COVID-19. Patient was treated with steroids as well as remdesivir. Patient has slowly improved. Patient will be discharged with oxygen upon discharge. Patient declined retirement facility in stable be discharged home in stable condition. Physical Exam Const alert General Appearance: cooperative Resp normal respiratory effort, no retractions, no use of accessory muscles and clear to auscultation bilaterally Cardio regular rate, regular rhythm, S1 normal heart sound and S2 normal heart sound Medical Records Data Medical Nutrition Assessment Dietitian: Nutrition Therapy Diagnosis Start: 10/13/20 08:24 Freq: Status: Active Protocol: Document 10/18/20 11:26 RMA (Rec: 10/18/20 11:26 RMA [id number]) Nutrition Malnutrition Evidence of Malnutrition Exists No Intake Problem Decreased Nutrient Needs (specify) Etiology for salt/sodium related to lasix Signs/Symptoms as evidenced by lymphedema and recent wt gain Status Active Problem Clinical Problem Unintended Weight Gain Etiology related to limited mobility and issues w/ lymphedema Signs/Symptoms as evidenced by 9% wt gain in past several months and BMI 72 .9 Status Active Problem Recommendation Dietitian Recommendations/Changes Will change diet to sodium- restricted to better manage fluid status; consider fluid/ calorie restriction as intake improves. Weight / BMI Weight Weight: 205.3 kg Body Mass Index (BMI) 72.8 ABG / Lab / Microbiology Data Result Diagrams: 10/19/20 06:36 08/05/21 06:36 Microbiology: Microbiology 10/12/20 14:40 Blood Culture (Wb) #2 - Arm Right Blood Culture - Final No growth in 5 days. 10/12/20 14:20 Blood Culture (Wb) - Left Forearm Blood Culture - Final No growth in 5 days. 10/13/20 10:25 Sputum, Expectorated/Coughed Gram Stain - Final 10/13/20 10:25 Sputum, Expectorated/Coughed Respiratory Culture - Final Presumptive C albicans 10/14/20 10:40 Urine, Clean Catch Legionella Antigen - Final 10/14/20 10:40 Urine, Clean Catch Streptococcus pneumoniae Antigen (M - Final 10/12/20 14:40 Mucosa - Nose SARS-CoV-2 Antigen (Rapid) - Final SARS-CoV-2 (COVID 19) D/C Instructions Discharge Diet: 8 Cup Fluid Restriction Weight Bearing Status: Weight bearing as tolerated Meaningful Use Info Meaningful Use Diagnoses (Choose all that apply): None applicable Discharge Plan Admission Admit Date/Time: 10/12/20 15:41 Primary Reason for Your Visit: COVID-19 Attending Provider: Flip Vaughan Primary Care Provider: Mireille Dietz Consulting Providers: Lloyd Villarreal ; Edgardo Pozo ; Mau Pike ; Kisha Shoemaker [employer]ATIONAL MARKETING EXECUTIVE Discharge Orders/Prescriptions Prescriptions: New dexamethasone 4 mg Tablet 6 mg PO DAILY 3 Days Qty: 5 RF: 0 Continued duloxetine 20 mg Capsule, Delayed Rel Sprinkle 20 mg PO BID RF: 0 furosemide 40 mg Tablet 40 mg PO DAILY RF: 0 gabapentin 300 mg Capsule 300 mg PO TID PRN (Reason: muscle spasms) RF: 0 montelukast 10 mg Tablet 10 mg PO QHS RF: 0 ciclesonide 80 mcg/actuation Hfa Aerosol Inhaler 1 puff INHALATION BID RF: 0 albuterol sulfate 90 mcg/actuation Aerosol Powdr Breath Activated 1 inh INHALATION Q6H PRN (Reason: Wheezing) RF: 0 acetaminophen 650 mg Tablet Extended Release 1,300 mg PO Q12H RF: 0 ibuprofen 200 mg Tablet 400 mg PO DAILY PRN (Reason: Pain) RF: 0 Osteo Bi-Flex Triple Strength 750 mg-644 mg- 30 mg-1 mg Tablet 1 tab PO BID RF: 0 doxycycline hyclate 100 mg capsule 100 mg PO DAILY RF: 0 Referrals / Follow Up: Mireille Dietz MD [Primary Care Provider] - Care Physician,No Primary [NON-STAFF] - Disposition Disposition (needs filled in before D/C Order can be placed): Home, Self Care Charges/Coding Visit Charges Inpatient E&M: 85491 Disch Hosp
[2020-10-20 13:50] VITALS: O2SAT 94
[2020-10-20 15:02] VITALS: BP 143/79; PULSE 101; RESP 20; TEMP 37; O2SAT 96
--- NOTE | 2020-10-23 14:08 | CASEMGMT ---
JAN VÁZQUEZ Discharge Follow Up Phone Call: ELIZABETH: 11 Strata: 3 Call Date: 10/23/20 Discharge Date: 10/20/20 Time of Call:1402 Duration: 6 min Admitting Dx: COVID 19 JAN VÁZQUEZ completed follow up phone call after recent hospitalization. Pt states she is doing much better at home. She had her rx when she left the hospital, her O2 was delivered. Her pulse ox has been in the 90's with O2 on. Pt states she is able to keep food down, her rollator is working out really well. She states she is still in quarantine and all of the members in the household have COVID. 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 Pt states she has not yet made her follow up appt with her PCP but she will. She does have the outpt therapy script and will do after she is out of quarantine. She denied any questions regarding her dc instructions or medications. Pt has no further questions or concerns at this time.
== END 2020-10-20 15:05 | disposition home or self-care (01) | DRG 137 ==
LOC: ED 15:16 → PCU 15:47 → ICU 16:00 → MS3 10-13 14:13
PROVIDERS: Admitting Provider Internal Medicine; Emergency Provider Emergency Medicine; PCP Internal Medicine
DX: U07.1 COVID-19 (principal); J12.82 Pneumonia due to coronavirus disease 2019; J96.01 Acute respiratory failure with hypoxia; R04.0 Epistaxis; L03.115 Cellulitis of right lower limb; D63.8 Anemia in other chronic diseases classified elsewhere; Z68.45 Body mass index [BMI] 70 or greater, adult; E66.2 Morbid (severe) obesity with alveolar hypoventilation; M15.9 Polyosteoarthritis, unspecified; G43.909 Migraine, unspecified, not intractable, without status migrainosus; G62.9 Polyneuropathy, unspecified; G89.29 Other chronic pain; H91.93 Unspecified hearing loss, bilateral; I89.0 Lymphedema, not elsewhere classified; J45.909 Unspecified asthma, uncomplicated; K21.9 Gastro-esophageal reflux disease without esophagitis; K50.90 Crohn's disease, unspecified, without complications; M47.816 Spondylosis without myelopathy or radiculopathy, lumbar region; M06.9 Rheumatoid arthritis, unspecified; Q79.60 Ehlers-Danlos syndrome, unspecified; Z85.6 Personal history of leukemia; Z86.718 Personal history of other venous thrombosis and embolism; Z88.0 Allergy status to penicillin; Z88.1 Allergy status to other antibiotic agents; Z87.442 Personal history of urinary calculi; Z79.899 Other long term (current) drug therapy
CPT/HCPCS: 36415; 71045; 80048; 80053; 80076; 82550; 83605; 83615; 83735; 83880; 84145; 84484; 85025; 85384; 86140; 87040; 87070; 87205; 87426; 87449; 93005; 93970; 94640; 94667; 94762; 97166; 97802; 97803; 99251; 99285; J7050; A4216; G0463; J2405

== ENCOUNTER 2020-12-05 22:51 | Inpatient (IN) | payer MEDICAID, SELFPAY ==
[2020-12-05 22:56] VITALS: BP 142/73; PULSE 132; RESP 24; TEMP 37.3; O2SAT 100; BMI 75.4
--- NOTE | 2020-12-05 23:22 | EKG12_ITS ---
Test Reason : OTHER PAIN Blood Pressure : / mmHG Vent. Rate : 135 BPM Atrial Rate : 135 BPM P-R Int : 138 ms QRS Dur : 080 ms QT Int : 276 ms P-R-T Axes : 049 056 -42 degrees QTc Int : 414 ms Sinus tachycardia Nonspecific ST and T wave abnormality Abnormal ECG Confirmed by ANGELIA OSBORNE, MARIBELL ([id number]), editor managing director JOSE DAVIS ([id number]) on 12/08/2020 9:53:52 AM Referred By: ANDREE Confirmed By:MARIBELL GALAN MD
[2020-12-05] MEDS: Ipratropium/Albuterol Sulfate 3 ML AMPUL.NEB INHALATION (23:37)
[2020-12-05 23:41] VITALS: PULSE 133; RESP 24
--- NOTE | 2020-12-05 23:41 | EDS_ITS ---
HPI History of Present Illness Chief Complaint: Other, Pain/Inj Informant: patient and family Narrative Narrative: Patient presents with multiple complaints. She does have some cough and dyspnea. However, she has been having some of this ever since she had Covid in September. She has seen her primary physician. They feel she has got long hauler syndrome. Because she also gets intermittent nausea. She gets myalgias. All the symptoms of been going on since Covid. She states the cough is a little bit worse the last few days. She is also not been eating or drinking because she gets nausea and vomiting. She is not having abdominal pain. Denies urinary symptoms. I asked her about the redness on her legs. She states sometimes when she takes cold medicine her legs get red. She evidently has been taking [id number] cold medicine. But she has also had cellulitis. Patient is slightly mobile at home. She uses her 15-year-old daughter to help her get up and walk behind a walker. She had a remote DVT. It was treated with laser therapy. She is not sure if she was ever on anticoagulation. Never had pulmonary embolus. She has had no hemoptysis. No chest pains. [facility] Medical History Asthma BMI 70 and over, adult Cancer Chronic pain Crohn disease DVT (deep venous thrombosis) Carole-Danlos syndrome GERD (gastroesophageal reflux disease) Hearing loss, left Hearing loss, right Irregular heart beat Kidney stones Lumbar spondylosis Lymphedema Migraines Morbid obesity Non-smoker Obesity Renal atrophy Rheumatoid arthritis Splenomegaly T-cell lymphoma Home Medications Osteo Bi-Flex Triple Strength 1 tab PO BID 10/02/20 [History Last Taken 10/11/20] acetaminophen 1,300 mg PO Q12H 10/02/20 [History Last Taken 10/11/20] albuterol sulfate 1 inh INHALATION Q6H PRN 10/02/20 [History Last Taken 10/12/20] ciclesonide 1 puff INHALATION BID 10/02/20 [History Last Taken 10/12/20] duloxetine 20 mg PO BID 10/02/20 [History Last Taken 10/11/20] furosemide 40 mg PO DAILY 10/02/20 [History Last Taken 10/11/20] gabapentin 300 mg PO TID PRN 10/02/20 [History Last Taken 10/01/20] ibuprofen 400 mg PO DAILY PRN 10/02/20 [History Last Taken 1 Week Ago ~10/05/20] montelukast 10 mg PO QHS 10/02/20 [History Last Taken 10/11/20] doxycycline hyclate 100 mg PO DAILY 10/12/20 [History Last Taken 10/11/20] elderberry fruit [Elderberry] 200 mg PO DAILY 12/05/20 [History Last Taken Unknown] Allergy/AdvReac Type Severity Reaction Status Date / Time Nitrate Analogues Allergy Unknown Other Verified 12/05/20 22:53 adhesive tape Allergy Rash Verified 12/05/20 22:53 aspirin Allergy Angioedema Verified 12/05/20 22:53 benzonatate Allergy Shortness Verified 12/05/20 22:53 of breath cephalexin Allergy Rash Verified 12/05/20 22:53 coconut oil Allergy Other Verified 12/05/20 22:53 copper Allergy Other Verified 12/05/20 22:53 formaldehyde Allergy Anaphylaxis Verified 12/05/20 22:53 Iodine and Iodide Containing Allergy Anaphylaxis Verified 12/05/20 22:53 Produc latex Allergy Anaphylaxis Verified 12/05/20 22:53 mold Allergy Anaphylaxis Verified 12/05/20 22:53 nickel Allergy Rash Verified 12/05/20 22:53 nitrofurantoin Allergy Anaphylaxis Verified 12/05/20 22:53 palm oil Allergy Other Verified 12/05/20 22:53 Penicillins Allergy Rash Verified 12/05/20 22:53 soy Allergy Other Verified 12/05/20 22:53 Sulfa (Sulfonamide Allergy Rash Verified 12/05/20 22:53 Antibiotics) topiramate Allergy Other Verified 12/05/20 22:53 aspartame AdvReac Other Verified 12/05/20 22:53 lactose AdvReac Nausea Verified 12/05/20 22:53 morphine AdvReac Other Verified 12/05/20 22:53 eggs Allergy Rash Uncoded 12/05/20 22:53 gold Allergy Rash Uncoded 12/05/20 22:53 Surgical History History of partial hysterectomy Social History Smoking Status: Never smoker ROS ROS ED Constitutional Constitutional ED: Reports chills and fever(s) Eyes Eyes: Denies blurry vision ENT ENT ED: Reports rhinorrhea; Denies sore throat Cardiovascular Cardiovascular: Reports other Details: Although her heart is racing, she does not seem to feel this. ; Denies chest pain, palpitations or racing heartbeat Respiratory/Chest Respiratory/Chest: Reports cough, dyspnea, sputum and other Details: She has had some cough with white to yellow sputum off and on since September. Gastrointestinal Gastrointestinal: Reports nausea and vomiting; Denies abdominal pain or diarrhea Genitourinary Genitourinary ED: Denies dysuria or urinary frequency Musculoskeletal Musculoskeletal: Reports myalgias Integumentary Reports other Details: Denies knowing she has a rash but she clearly has erythema of the left lower extremity. ; Denies rash Neurologic Neurologic: Reports headache(s) and other Details: Patient states her head hurts when she coughs. Endocrine Endocrinology: Denies polydipsia or polyuria Allergic/Immunologic Allergic/Immunologic ED: Denies urticaria EXAM Physical Exam Const Vital Signs: 12/05/20 22:56 12/05/20 22:59 12/05/20 23:41 Temperature 99.1 F Temperature Source Oral Pulse Rate 132 H 133 H Respiratory Rate 24 H 24 H Respiratory Effort Normal Respiratory Pattern Normal Blood Pressure 142/73 H Blood Pressure Mean 96 Pulse Ox 100 Oxygen Delivery Method Nasal Cannula Oxygen Flow Rate (L/min) 3 12/06/20 01:22 12/06/20 03:03 12/06/20 03:36 Temperature 100 F H Temperature Source Oral Pulse Rate 136 H 128 H 122 H Respiratory Rate 23 H 20 H 20 H Respiratory Effort Respiratory Pattern Blood Pressure 152/83 H Blood Pressure Mean 106 Pulse Ox 100 98 97 Oxygen Delivery Method Nasal Cannula Nasal Cannula Oxygen Flow Rate (L/min) 3 4 12/06/20 04:42 12/06/20 04:43 Temperature 100 F H Temperature Source Oral Pulse Rate 132 H 132 H Respiratory Rate 20 H 20 H Respiratory Effort Respiratory Pattern Blood Pressure 140/76 H 140/76 H Blood Pressure Mean 97 97 Pulse Ox 97 97 Oxygen Delivery Method Nasal Cannula Oxygen Flow Rate (L/min) 4 Positive well nourished, well developed and obese General Appearance ED: well developed and NAD Nutritional Appearance: obese HEENT Reports dry mucous membranes Negative for trauma or tenderness Mouth ED: Yes dry mucous membranes Mouth: dry mucous membranes Eyes General Eye ED: Negative for pale conjunctiva Neck No no JVD Resp normal respiratory effort Resp Narrative: Breath sounds are quite distant. There may be a small amount of expiratory wheeze. Cardio regular rhythm Rate: tachycardic GI normal to inspection, nondistended, normoactive bowel sounds and non-tender GI Narrative: Obesity limits exam but there is no indication of tenderness. She has some excoriation with slight erythema at the lower aspect of the abdomen. However this is not as red as her left lower extremity. There is no abscess felt. Palpation: soft Extremity Extremity Narrative: Both legs are wrapped and large. The left leg is clearly well demarcated erythema and warmth. This does look like a cellulitis. Neuro oriented x3 Sensorium / Orientation: alert Psych mental status grossly normal Skin Skin Narrative: Erythema of left lower extremity and lower abdomen. MDM MDM MDM Narrative Medical decision making narrative: Patient's labs show elevated white count at 16 2. She does have anemia at 8.8 but has had chronic problems with this. Electrolytes showed mild elevation of glucose at 125. Lactate is normal. LFTs are normal. Chest x-ray shows some mild lower atelectasis. However overall improved. Her saturations are 100% to 95% on her oxygen. She has been having pulmonary symptoms ever since Covid in September. We did do CT scan of the head. She states she was having headaches that are significant but mostly just with coughing. CT showed no acute process. We initially had an IV. This was lost. So she has not yet gotten IV fluids. Her heart rate is still quick but she is not hypotensive. She is comfortable. I talked to her about a central line. She had not had one in about 8 years. She was not enthused about this. We are able to put some warm towels on her arm and now do have an IV. We are starting fluids and the antibiotics. I do think she has cellulitis on her left leg. There is significant erythema. Her Velcro compression wrappings were taken down. There is no specific lesion or sore. With her increased respiratory rate and heart rate, she does technically have sepsis. However her lactate is normal. We are giving her initially a liter of fluid. We are not going to give her a 30 cc/kg bolus because this would be over 6 L. I think we need to be more judicious in this unique case. Patient's blood pressure has been stable. Respiratory rate decreased. Heart rate came down to 120s. Temperature did start going up so we will write for some Tylenol. Oxygen saturation has been fine. I think this patient's baseline level of health, white count, tachycardia and cellulitis does justify inpatient therapy. I do not think this is a patient who would do well as an outpatient. Her lactate and blood pressure have been normal so far. Lab Data Attestation: I reviewed the patient's lab results. Labs: Laboratory Results - last 24 hr 12/06/20 12/06/20 12/06/20 00:27 00:27 00:27 WBC 16.2 H RBC 3.61 L Hgb 8.8 L Hct 30.0 L MCV 83.1 MCH 24.4 L MCHC 29.3 L RDW Std Deviation 51.5 H RDW Coeff of Fanny 17.1 H Plt Count 224 MPV 10.3 Immature Gran % (Auto) 1.500 H Neut % (Auto) 89.9 H Lymph % (Auto) 4.9 L Rincon % (Auto) 3.1 Eos % (Auto) 0.4 Baso % (Auto) 0.2 Absolute Neuts (auto) 14.6 H Absolute Lymphs (auto) 0.80 L Nucleated RBC % 0.1 Anisocytosis 1+ Sodium 133 L Potassium 3.5 Chloride 96 L Carbon Dioxide 34.0 H Anion Gap 3 L BUN 14 Creatinine 0.81 Estim Creat Clear Calc 83.84 Est GFR (MDRD) Af Amer 98 Est GFR (MDRD) Non-Af 81 BUN/Creatinine Ratio 17.2 Glucose 125 H Lactic Acid 1.4 Calcium 8.7 Total Bilirubin 0.40 AST 35 ALT 20 Alkaline Phosphatase 92 Troponin I High Sens 5 Total Protein 7.6 Albumin 2.2 L Globulin 5.4 H Albumin/Globulin Ratio 0.4 L Urine Color Urine Clarity Urine pH Ur Specific [place] Urine Protein Urine Glucose (UA) Urine Ketones Urine Occult Blood Urine Nitrite Urine Bilirubin Urine Urobilinogen Ur Leukocyte Esterase Urine RBC Urine WBC Ur Squamous Epith Cells Amorphous Sediment Urine Bacteria Urine Mucus 12/06/20 02:55 WBC RBC Hgb Hct MCV MCH MCHC RDW Std Deviation RDW Coeff of Fanny Plt Count MPV Immature Gran % (Auto) Neut % (Auto) Lymph % (Auto) [place] % (Auto) Eos % (Auto) Baso % (Auto) Absolute Neuts (auto) Absolute Lymphs (auto) Nucleated RBC % Anisocytosis Sodium Potassium Chloride Carbon Dioxide Anion Gap BUN Creatinine Estim Creat Clear Calc Est GFR (MDRD) Af Amer Est GFR (MDRD) Non-Af BUN/Creatinine Ratio Glucose Lactic Acid Calcium Total Bilirubin AST ALT Alkaline Phosphatase Troponin I High Sens Total Protein Albumin Globulin Albumin/Globulin Ratio Urine Color Yellow Urine Clarity Clear Urine pH 5.0 Ur Specific [place] 1.020 Urine Protein 100 H Urine Glucose (UA) Normal Urine Ketones 5 H Urine Occult Blood 10 H Urine Nitrite Negative Urine Bilirubin Negative Urine Urobilinogen 4 H Ur Leukocyte Esterase Negative Urine RBC 0 SEEN Urine WBC 0-5 SEEN Ur Squamous Epith Cells 0 SEEN Amorphous Sediment RARE Urine Bacteria 1+ Urine Mucus 0 SEEN Radiography Diagnostic Testing: Radiology Impression Chest X-Ray 12/06/20 00:00 IMPRESSION: Mild bilateral basilar atelectasis. Underexpanded lungs with vascular crowding. Residual density within the left mid lower lung field which may indicate residual mild infiltrate versus atelectasis. Electronically Signed: Ursula Cuellar MD at 1:06 EDT , Service support , EKG Initial EKG: Comments: EKG done for increased heart rate read by me shows a sinus rhythm with tachycardic rate at 135. No ventricular ectopy. No acute ST elevation or depression. There are some nonspecific ST changes likely related to rate. CT interval, QRS duration and QTc normal. Discharge Plan Dx/Rx/DC Orders Clinical Impression: Sepsis, Cellulitis of left leg, Leukocytosis Disposition Disposition: Acute Care [facility]
[2020-12-06] VITALS (18 sets, daily range): BP systolic 114–152; BP diastolic 55–83; PULSE 106–136; RESP 16–23; TEMP 36.7–37.7; O2SAT 96–100; BMI 64.2
--- NOTE | 2020-12-06 | RAD_ITS ---
STUDY: X-RAY CHEST REASON FOR EXAM: Female, 44 years old. cough TECHNIQUE: Single AP portable view of the chest. COMPARISON: 10/12/2020. FINDINGS: The lungs are underexpanded with mild residual opacity within the left mid lower lung field consistent with residual infiltrate, with marked improvement to near complete resolution when compared to prior study. Mild bilateral basilar atelectasis. There is no demonstrated pleural abnormality. Normal size heart. Normal mediastinum and singh. Normal visualized pulmonary arteries. Normal visualized aortic arch and descending thoracic aorta. Normal visualized thoracic spine. Normal visualized ribs, clavicles, and shoulders. There is no demonstrated abnormality of the visualized soft tissue structures of the upper abdomen. RAD/Chest 1 View (Portable) IMPRESSION: Mild bilateral basilar atelectasis. Underexpanded lungs with vascular crowding. Residual density within the left mid lower lung field which may indicate residual mild infiltrate versus atelectasis. Electronically Signed: Ursula Cuellar MD at 1:06 EDT , Service support ,
[2020-12-06] MEDS: Ondansetron 4 MG/2 ML Vial IV (00:39)
[2020-12-06] MEDS: 0.9% Normal Saline 1,000 ML 999 ML IV ×2 (00:39→06:36)
[2020-12-06 00:43] LABS: Absolute Neutrophil Count 14.6 X10^3/uL (2.0-7.7); Basophil# 0.03 X10^3/uL; Basophil% 0.2 % (0-1); Eosinophil# 0.07 X10^3/uL; Eosinophils% 0.4 % (0-5); Hemoglobin 8.8 g/dL (12.0-15.0); Lymphocyte % 4.9 % (19-41); Mean Corp Hgb Conc 29.3 g/dL (32-36); Mean Corpuscular Hgb 24.4 pg (27.0-32.0); Mean Corpuscular Volume 83.1 fL (81-99); Mean Platelet Vol. 10.3 fl (6.2-12.0); Monocyte# 0.51 X10^3/uL; Monocyte% 3.1 % (0-10); NRBC Flagged by Analyzer 0.1 % (0-5); Neutrophil # 14.55 X10^3/uL (2.7-7.7); Neutrophil % 89.9 % (47-70); POSITIVE MORPHOLOGY YES; Platelet Count 224 K/mm3 (150-450); RBC Distribution Width CV 17.1 % (11.6-14.6); RBC Distribution Width SD 51.5 fl (35.1-43.9); Red Blood Count 3.61 M/mm3 (4.2-5.4); White Blood Count 16.2 K/mm3 (4.4-11.0)
[2020-12-06 01:02] LABS: ALB/GLOB Ratio 0.4 RATIO (0.9-2.4); AST(SGOT) 35 U/L (15-37); Alanine Aminotransfer ALT/SGPT 20 U/L (13-56); Albumin, Serum 2.2 g/dL (3.2-5.0); Alkaline Phosphatase 92 U/L (45-117); Anion Gap 3 (5-15); BUN 14 mg/dL (7-18); BUN/Creat Ratio 17.2 RATIO (10-20); Calcium,Total 8.7 mg/dL (8.5-10.1); Chloride 96 mmol/L (98-107); Creatinine, Serum 0.81 mg/dL (0.55-1.02); EST Glomerular Filtration Rate 81 mL/min (>60); Est Glom Filt Rate - Afr Amer 98 mL/min (>60); Estimated Creatinine Clearance 83.84 ml/min; Globulin 5.4 g/dL (2.2-4.2); Glucose 125 mg/dL (74-106); Potassium 3.5 mmol/L (3.5-5.1); Protein, Total 7.6 g/dL (6.4-8.2); Sodium Level 133 mmol/L (136-145); Troponin-I HS 5 pg/mL (3.0-54.0)
[2020-12-06 01:20] LABS: Differential Indicated SCAN CRITERIA MET
[2020-12-06 01:21] LABS: Anisocytosis 1+
[2020-12-06 01:35] LABS: Lactic Acid 1.4 mmol/L (0.4-1.9)
[2020-12-06 03:05] LABS: Mucous, Urine 0 SEEN /hpf (<or=2+); Red Blood Cells-Urine 0 SEEN /hpf (0-5); Squamous Epithelial Cells - UA 0 SEEN /hpf (5-10)
[2020-12-06 03:08] LABS: Color, Urine Yellow (Yellow); Glucose, Dipstick Normal (Normal); Ketone-Dipstick 5 mg/dl (Negative); Leukocyte Esterase-Dipstick Negative /ul (Negative); Nitrite-Dipstick Negative (Negative); Occult Blood-Urine 10 /ul (Negative); Protein-Dipstick 100 mg/dl (Negative); Urine Bilirubin Dipstick Negative (Negative); Urine Clarity Clear (Clear); Urine Urobilinogen 4 mg/dl (Normal)
--- NOTE | 2020-12-06 03:19 | ED.RN ---
bilateral leg wraps and daryl hose removed. multiple small scabbed areas noted on both legs. left calf, ankle and foot red and warm.
[2020-12-06] MEDS: traMADol 50 MG Tablet PO (03:34)
[2020-12-06 03:42] LABS: Amorphous Sediment RARE; Bacteria 1+ /hpf (None Seen); White Blood Cells 0-5 SEEN /hpf (0-5)
[2020-12-06] MEDS: proMETHazine 25 MG/ML Syringe 12.5 MG IM (04:17)
[2020-12-06] MEDS: Acetaminophen 500 MG Tablet 1000 MG PO (04:17)
--- NOTE | 2020-12-06 05:03 | PCM.HP.STD ---
HPI - General General Date of Admission: 12/06/20 Date of Service: 12/06/20 Chief Complaint: Fever, chills, N/V, LLE redness, warmth, pain. HPI Narrative The patient is a 44 y/o F w/ PMHx: Morbid Obesity, Chronic anemia, Asthma, Chronic BL LE Lymphedma, Hx Uterine/Cervical CA, Migraines, Rheumatoid arthritis, Crohn's disease, Hx DVT, GERD, Carole-Danlos Syndrome, Hx COVID PNA with acute hypoxic respiratory failure with prolonged admission 10/12/20-10/20/20 eventually diagnosed outpatient with Long-hauler Syndrome who presents to the [facility] ED on 12/06/20 with 3-day history of worsening fatigue, malaise, generalized body discomfort, headaches, nausea, emesis, ongoing chronic cough, increased fatigue and malaise with fever and chills with eventual note of significant left lower extremity redness, swelling and increased pain above baseline prompting ED evaluation. Patient denied any recent significant trauma to the left lower extremity. Work-up in the ED included T1 100, heart rate 132, BP 140/76, respiratory rate 20, 97% on 4 L nasal cannula, CBC with WBC 16.2, hemoglobin 8.8, platelet 224 with left shift and lymphopenia, CMP with sodium 133, chloride 96, carbon oxide 34, glucose 125, lactic acid 1.4 otherwise not marked appearing hepatic profile, urinalysis with specific gravity 1.020, protein 30, urine ketone 5, occult blood 10, negative nitrite, negative leukocyte esterase, 0-5 urine WBCs, 1+ urine bacteria, chest x-ray with mild bilateral basilar atelectasis with underexpanded lungs with vascular crowding with residual density in the left midlung field possibly residual infiltrate versus atelectasis, CT head with no acute intracranial finding, negative rapid Covid antigen, blood culture x2 pending per ED. In the ED patient ministered vancomycin, tramadol, Phenergan, Zofran, DuoNeb therapy, Tylenol in addition to normal saline bolus. [facility] Medical History (Updated 12/06/20 @ 03:[address] Uriel Clarke MD) Asthma BMI 70 and over, adult Cancer Chronic pain Crohn disease DVT (deep venous thrombosis) Carole-Danlos syndrome GERD (gastroesophageal reflux disease) Hearing loss, left Hearing loss, right Irregular heart beat Kidney stones Lumbar spondylosis Lymphedema Migraines Morbid obesity Non-smoker Obesity Renal atrophy Rheumatoid arthritis Splenomegaly T-cell lymphoma Home Medications Osteo Bi-Flex Triple Strength 1 tab PO BID 10/02/20 [History Last Taken 10/11/20] acetaminophen 1,300 mg PO Q12H 10/02/20 [History Last Taken 10/11/20] albuterol sulfate 1 inh INHALATION Q6H PRN 10/02/20 [History Last Taken 10/12/20] ciclesonide 1 puff INHALATION BID 10/02/20 [History Last Taken 10/12/20] duloxetine 20 mg PO BID 10/02/20 [History Last Taken 10/11/20] furosemide 40 mg PO DAILY 10/02/20 [History Last Taken 10/11/20] gabapentin 300 mg PO TID PRN 10/02/20 [History Last Taken 10/01/20] ibuprofen 400 mg PO DAILY PRN 10/02/20 [History Last Taken 1 Week Ago ~10/05/20] montelukast 10 mg PO QHS 10/02/20 [History Last Taken 10/11/20] doxycycline hyclate 100 mg PO DAILY 10/12/20 [History Last Taken 10/11/20] elderberry fruit [Elderberry] 200 mg PO DAILY 12/05/20 [History Last Taken Unknown] Allergy/AdvReac Type Severity Reaction Status Date / Time Nitrate Analogues Allergy Unknown Other Verified 12/05/20 22:53 adhesive tape Allergy Rash Verified 12/05/20 22:53 aspirin Allergy Angioedema Verified 12/05/20 22:53 benzonatate Allergy Shortness Verified 12/05/20 22:53 of breath cephalexin Allergy Rash Verified 12/05/20 22:53 coconut oil Allergy Other Verified 12/05/20 22:53 copper Allergy Other Verified 12/05/20 22:53 formaldehyde Allergy Anaphylaxis Verified 12/05/20 22:53 Iodine and Iodide Containing Allergy Anaphylaxis Verified 12/05/20 22:53 Produc latex Allergy Anaphylaxis Verified 12/05/20 22:53 mold Allergy Anaphylaxis Verified 12/05/20 22:53 nickel Allergy Rash Verified 12/05/20 22:53 nitrofurantoin Allergy Anaphylaxis Verified 12/05/20 22:53 palm oil Allergy Other Verified 12/05/20 22:53 Penicillins Allergy Rash Verified 12/05/20 22:53 soy Allergy Other Verified 12/05/20 22:53 Sulfa (Sulfonamide Allergy Rash Verified 12/05/20 22:53 Antibiotics) topiramate Allergy Other Verified 12/05/20 22:53 aspartame AdvReac Other Verified 12/05/20 22:53 lactose AdvReac Nausea Verified 12/05/20 22:53 morphine AdvReac Other Verified 12/05/20 22:53 eggs Allergy Rash Uncoded 12/05/20 22:53 gold Allergy Rash Uncoded 12/05/20 22:53 Family History (Updated 12/06/20 @ 05:[address] Erin Izaguirre MD) Father Heart disease Mother Diabetes Surgical History (Updated 12/06/20 @ 05:[address] Erin Izaguirre MD) History of partial hysterectomy Hx of pelvic surgery Previous section Social History (Updated 12/06/20 @ 05:[address] Erin Izaguirre MD) household members: children Smoking Status: Never smoker alcohol intake: current alcohol intake frequency: holidays/special occasions only substance use type: does not use ROS ROS Narrative Admission Review of Systems: CONSTITUTIONAL: No weight loss, + fever, chills, weakness or fatigue. HEENT: + Intermittent headaches. Eyes: No visual loss, blurred vision, double vision or yellow sclerae. Ears, Nose, Throat: No hearing loss, sneezing, congestion, runny nose or sore throat. SKIN: + Left lower extremity erythema, tenderness palpation, edema. CARDIOVASCULAR: No chest pain, chest pressure or chest discomfort, palpitations, edema, orthopnea, syncopal events. RESPIRATORY: + Chronic shortness of breath and cough without marked sputum, no wheezing, hemoptysis. GASTROINTESTINAL: + anorexia, nausea, vomiting, No diarrhea, abdominal pain, melena, BRBPR. GENITOURINARY: No dysuria, frequency, urgency or retention. NEUROLOGICAL: + Headache, No dizziness, syncope, paralysis, ataxia, numbness or tingling in the extremities, focal weakness, change in bowel or bladder control, seizure. MUSCULOSKELETAL: + Muscle, back pain, joint pain or stiffness. HEMATOLOGIC: + Anemia, bleeding or bruising. LYMPHATICS: No enlarged nodes. No history of splenectomy. PSYCHIATRIC: + history of depression or anxiety. ENDOCRINOLOGIC: No reports of sweating, cold or heat intolerance. No polyuria or polydipsia. ALLERGIES: + history of asthma, hives, eczema or rhinitis. Vital Signs Vital Signs Vital Signs: 12/05/20 22:56 12/05/20 22:59 12/05/20 23:41 Temperature 99.1 F Temperature Source Oral Pulse Rate 132 H 133 H Respiratory Rate 24 H 24 H Respiratory Effort Normal Respiratory Pattern Normal Blood Pressure 142/73 H Blood Pressure Mean 96 Pulse Ox 100 Oxygen Delivery Method Nasal Cannula Oxygen Flow Rate (L/min) 3 12/06/20 01:22 12/06/20 03:03 12/06/20 03:36 Temperature 100 F H Temperature Source Oral Pulse Rate 136 H 128 H 122 H Respiratory Rate 23 H 20 H 20 H Respiratory Effort Respiratory Pattern Blood Pressure 152/83 H Blood Pressure Mean 106 Pulse Ox 100 98 97 Oxygen Delivery Method Nasal Cannula Nasal Cannula Oxygen Flow Rate (L/min) 3 4 12/06/20 04:42 12/06/20 04:43 Temperature 100 F H Temperature Source Oral Pulse Rate 132 H 132 H Respiratory Rate 20 H 20 H Respiratory Effort Respiratory Pattern Blood Pressure 140/76 H 140/76 H Blood Pressure Mean 97 97 Pulse Ox 97 97 Oxygen Delivery Method Nasal Cannula Oxygen Flow Rate (L/min) 4 Weight Weight: 467 lb 6.08 oz Body Mass Index (BMI) 75.4 Physical Exam Narrative Physical Examination: General: Awake, alert, oriented x 3 and cooperative, seated upright in the ED bed, fatigued otherwise no acute distress. Skin: Normal color, normal turgor, no icterus, no cyanosis except notable left lower extremity circumferential erythema extending from the upper thigh downward including the distal lower extremity, warm to touch, tender to palpation, edematous confounded by chronic lymphedema, foot sparing. HEENT: AT/NC, EOMI, PERRLA, mildly dry MM, no obvious carotid bruits, unable to determine JVD given thickened neck. Lungs: Distant breath sounds, greater bases, mildly increased respiratory rate which suspect is chronic, no rales, ronchi or wheezing. Heart: Tachycardic with regular rhythm; no gallop, rub audible. Abdomen: Soft, morbidly obese, no obvious TTP with palpation, unable to discern distention given habitus, distant normal BS, no obvious evidence of HSM. Extremities: No cyanosis, No clubbing, chronic BL LE lymphedema with acutely worsened LLE edema above baseline. Neurological: Patient awake, alert, oriented as noted, cognitive function intact; pupils equally reactive to light and accommodation, cranial nerves II-XII grossly normal, moving all 4 extremities, no focal deficits, strength severely globally decreased secondary to acute presentation complicated by her underlying comorbidities. Psychiatric: Affect appears fatigued, no acute evidence of depressive or anxiety feelings. Results Lab / Micro Data Result Diagrams: 12/06/20 00:27 12/06/20 00:27 Labs: Laboratory Results - last 24 hr 12/06/20 00:27: WBC 16.2 H, RBC 3.61 L, Hgb 8.8 L, Hct 30.0 L, MCV 83.1, MCH 24.4 L, MCHC 29.3 L, RDW Std Deviation 51.5 H, RDW Coeff of Fanny 17.1 H, Plt Count 224, MPV 10.3, Immature Gran % (Auto) 1.500 H, Neut % (Auto) 89.9 H, Lymph % (Auto) 4.9 L, [place] % (Auto) 3.1, Eos % (Auto) 0.4, Baso % (Auto) 0.2, Absolute Neuts (auto) 14.6 H, Absolute Lymphs (auto) 0.80 L, Nucleated RBC % 0.1, Anisocytosis 1+ 12/06/20 00:27: Sodium 133 L, Potassium 3.5, Chloride 96 L, Carbon Dioxide 34.0 H, Anion Gap 3 L, BUN 14, Creatinine 0.81, Estim Creat Clear Calc 83.84, Est GFR (MDRD) Af Amer 98, Est GFR (MDRD) Non-Af 81, BUN/Creatinine Ratio 17.2, Glucose 125 H, Calcium 8.7, Total Bilirubin 0.40, AST 35, ALT 20, Alkaline Phosphatase 92, Troponin I High Sens 5, Total Protein 7.6, Albumin 2.2 L, Globulin 5.4 H, Albumin/Globulin Ratio 0.4 L 12/06/20 00:27: Lactic Acid 1.4 12/06/20 02:55: Urine Color Yellow, Urine Clarity Clear, Urine pH 5.0, Ur Specific [place] 1.020, Urine Protein 100 H, Urine Glucose (UA) Normal, Urine Ketones 5 H, Urine Occult Blood 10 H, Urine Nitrite Negative, Urine Bilirubin Negative, Urine Urobilinogen 4 H, Ur Leukocyte Esterase Negative, Urine RBC 0 SEEN, Urine WBC 0-5 SEEN, Ur Squamous Epith Cells 0 SEEN, Amorphous Sediment RARE, Urine Bacteria 1+, Urine Mucus 0 SEEN Micro: Microbiology 12/05/20 23:43 Nasal Secretion SARS-CoV-2 Antigen (Rapid) - Final Radiology Impression Chest X-Ray 12/06/20 00:00 IMPRESSION: Mild bilateral basilar atelectasis. Underexpanded lungs with vascular crowding. Residual density within the left mid lower lung field which may indicate residual mild infiltrate versus atelectasis. Electronically Signed: Ursula Cuellar MD at 1:06 EDT , Service support , Brain CT 12/06/20 23:22 IMPRESSION: Normal unenhanced CT scan of the brain. Electronically Signed: Ursula Cuellar MD at 1:52 EDT , Service support , Assessment & Plan Assessment/Plan (1) Cellulitis of left leg: PLAN: The patient is a 44 y/o F w/ PMHx: Morbid Obesity, Chronic anemia, Asthma, Chronic BL LE Lymphedma, Hx Uterine/Cervical CA, Migraines, Rheumatoid arthritis, Crohn's disease, Hx DVT, GERD, Carole-Danlos Syndrome, Hx COVID PNA with acute hypoxic respiratory failure with prolonged admission 10/12/20-10/20/20 eventually diagnosed outpatient with Long-hauler Syndrome who presents to the [facility] ED on 12/06/20 with 3-day history of worsening fatigue, malaise, generalized body discomfort, headaches, nausea, emesis, ongoing chronic cough, increased fatigue and malaise with fever and chills with eventual note of significant left lower extremity redness, swelling and increased pain above baseline. 1. Acute LLE Extremity Cellulitis complicated by chronic lymphedema: Will admit to medical surgical floor on telemetry given notable tachycardia, maintain on IV vancomycin given significant allergy history, plan repeat CBC in AM, continue affected extremity elevation above heart when seated and in bed, monitor erythema outline with VS checks, will obtain left lower extremity duplex ultrasound given history of DVT and left lower extremity appears more edematous than right lower extremity with underlying history of chronic lymphedema. 2. Chronic anemia, normocytic: Admission hemoglobin 8.8, prior baseline ranged 8-10, most recently 10/19/2020 10.4, patient currently dehydrated appearance, will hydrate, repeat CBC in AM. 3. Long-hauler COVID Syndrome with chronic hypoxic respiratory failure: We will continue patient chronic 4 L nasal cannula supplementation, encourage aggressive I-S, complicates presentation, continue home inhaler and as needed albuterol. 4. Hypertension: Continue home regimen including lasix with hold parameters as needed, PRN hydralazine. 5. Chronic asthma with chronic hypoxic respiratory failure with allergic rhinitis: We will continue chronic home supplementation, continue patient home long-acting inhaler with as needed albuterol if necessary, encourage head of bed and I-S, continue home Singulair regimen. 6. Morbid Obesity: Weight loss and lifestyle changes encouraged, nutrition consulted. 7. Anxiety and Depression: Continue home duloxetine regimen. 8. History DVT: We will continue chemoprophylaxis and pending duplex ultrasound left lower extremity as noted. 9. History of uterine, cervical cancer: Status post surgical intervention with reconstructive surgery per report, remission status reported per patient. 10. Crohn's disease: Not on any medication per current list, encourage continued follow-up outpatient with GI. 11. Rheumatoid arthritis: Not on any medication per current list, encourage continued follow-up outpatient with rheumatology. 12. DVT prophylaxis: SCDs, Lovenox. 13. CODE status: Patient SIERRA is her daughter Veena she notes and living will is currently in place. Discussed CODE status at length including difference between FULL code, DNR-CCA and DNR-CC status. Following discussions about the differences in these status, requested Full Code status. Advanced Care Planning Face to Face Time: 16 minutes. Charges/Coding Visit Charges Inpatient E&M: 93350 Init Hosp L3 Procedures Hospitalists Procedures: 00938 Advncd Care Plan 30 Min
--- NOTE | 2020-12-06 06:13 | PCM.RX.CS ---
Consult Pharmacy has been consulted to manage selected antiobiotic: Vancomycin Type of Consult: New start Suspected Infection: Skin/Soft tissue Prior Doses of Antibiotics Received/Current Regimen: Medications Vancomycin HCl 1,250 mg/ (Sodium Chloride) 275 mls @ 167 mls/hr IV Q12H HERNÁN Discontinued Medications Vancomycin HCl 2,000 mg/ (Sodium Chloride) 540 mls @ 250 mls/hr IV X1 ONE Stop: 12/06/20 01:37 Last Admin: 12/06/20 05:15 Dose: Infused Labs: Sodium 133 mmol/L (136-145) L 12/06/20 00:27 Potassium 3.5 mmol/L (3.5-5.1) 12/06/20 00:27 Chloride 96 mmol/L (98-107) L 12/06/20 00:27 Carbon Dioxide 34.0 mmol/L (21.0-32.0) H 12/06/20 00:27 Anion Gap 3 (5-15) L 12/06/20 00:27 BUN 14 mg/dL (7-18) 12/06/20 00:27 Creatinine 0.81 mg/dL (0.55-1.02) 12/06/20 00:27 Est GFR (MDRD) Af Amer 98 mL/min (>60) 12/06/20 00:27 Est GFR (MDRD) Non-Af 81 mL/min (>60) 12/06/20 00:27 BUN/Creatinine Ratio 17.2 RATIO (10-20) 12/06/20 00:27 Glucose 125 mg/dL (74-106) H 12/06/20 00:27 Microbiology: Microbiology 12/05/20 23:43 Nasal Secretion SARS-CoV-2 Antigen (Rapid) - Final Weight used for dosin kg Estimated Creatinine Clearance: 84 Goal Trough: 10-15 mcg/mL Pharmacy Plan for Drug Dosing: Pharmacy Service will continue to monitor and adjust dosing as required. Follow-Up Labs: Trough Vancomycin Labs to be done on [date and time ordered]: 12/07/20 @1300
[2020-12-06] MEDS: Gabapentin 300 MG Capsule PO (07:48)
[2020-12-06] MEDS: Acetaminophen 325 MG Tablet 650 MG PO ×3 (07:48→19:57)
[2020-12-06] MEDS: 0.9% Normal Saline 1,000 ML 125 ML IV ×2 (07:50→17:58)
--- NOTE | 2020-12-06 07:57 | PN.HOSP_ITS ---
Objective Data Objective Data Vital Signs: Vital Signs Temp Pulse Resp BP Pulse Ox 99 F 132 H 20 H 124/56 H 97 12/06/20 06:47 12/06/20 07:32 12/06/20 06:47 12/06/20 06:47 12/06/20 06:47 Oxygen Flow Rate (L/min) 4 Oxygen Delivery Method Nasal Cannula Weight: 180.53 kg Body Mass Index (BMI) 64.2 Intake & Output: Intake and Output for Last 24 Hours 12/04/20 12/05/20 12/06/20 23:59 23:59 23:59 Intake Total 1540 / 1540 Balance 1540 / 1540 Lab / Micro Data Result Diagrams: 12/06/20 00:27 12/06/20 00:27 Labs: Laboratory Results - last 24 hr 12/06/20 00:27: WBC 16.2 H, RBC 3.61 L, Hgb 8.8 L, Hct 30.0 L, MCV 83.1, MCH 24.4 L, MCHC 29.3 L, RDW Std Deviation 51.5 H, RDW Coeff of Fanny 17.1 H, Plt Count 224, MPV 10.3, Immature Gran % (Auto) 1.500 H, Neut % (Auto) 89.9 H, Lymph % (Auto) 4.9 L, [place] % (Auto) 3.1, Eos % (Auto) 0.4, Baso % (Auto) 0.2, Absolute Neuts (auto) 14.6 H, Absolute Lymphs (auto) 0.80 L, Nucleated RBC % 0.1, Anisocytosis 1+ 12/06/20 00:27: Sodium 133 L, Potassium 3.5, Chloride 96 L, Carbon Dioxide 34.0 H, Anion Gap 3 L, BUN 14, Creatinine 0.81, Estim Creat Clear Calc 83.84, Est GFR (MDRD) Af Amer 98, Est GFR (MDRD) Non-Af 81, BUN/Creatinine Ratio 17.2, Glucose 125 H, Calcium 8.7, Total Bilirubin 0.40, AST 35, ALT 20, Alkaline Phosphatase 92, Troponin I High Sens 5, Total Protein 7.6, Albumin 2.2 L, Globulin 5.4 H, Albumin/Globulin Ratio 0.4 L 12/06/20 00:27: Lactic Acid 1.4 12/06/20 02:55: Urine Color Yellow, Urine Clarity Clear, Urine pH 5.0, Ur Specific [place] 1.020, Urine Protein 100 H, Urine Glucose (UA) Normal, Urine Ketones 5 H, Urine Occult Blood 10 H, Urine Nitrite Negative, Urine Bilirubin Negative, Urine Urobilinogen 4 H, Ur Leukocyte Esterase Negative, Urine RBC 0 SEEN, Urine WBC 0-5 SEEN, Ur Squamous Epith Cells 0 SEEN, Amorphous Sediment RARE, Urine Bacteria 1+, Urine Mucus 0 SEEN Micro: Microbiology 12/05/20 23:43 Nasal Secretion SARS-CoV-2 Antigen (Rapid) - Final Radiography Diagnostic Testing: Radiology Impression Chest X-Ray 12/06/20 00:00 IMPRESSION: Mild bilateral basilar atelectasis. Underexpanded lungs with vascular crowding. Residual density within the left mid lower lung field which may indicate residual mild infiltrate versus atelectasis. Electronically Signed: Ursula Cuellar MD at 1:06 EDT , Service support , Brain CT 12/06/20 23:22 IMPRESSION: Normal unenhanced CT scan of the brain. Electronically Signed: Ursula Cuellar MD at 1:52 EDT , Service support , Physical Exam Narrative GENERAL: Patient appears ill looking HEENT: Atraumatic; EYES; Anicteric, Normal Conjunctiva NECK; supple, normal thyroid, RESPIRATORY: Diminished to auscultation CARDIOVASCULAR: Regular S1 S2, tachycardic GI: soft, normoactive bowel sounds, : No Renal angle tenderness; EXTREMITIES: No edema, no clubbing, MUSCULOSKELETAL: no muscle waisting NEURO: Awake; no lateralizing signs. SKIN: erythema and warmth both lower extremities left worse than right PSYCH; Flat affect Assessment & Plan Assessment/Plan (1) Cellulitis of left leg: PLAN: Patient is a 44-year-old lady with history of previous admission for cellulitis involving the right lower extremity as well as SARS-CoV-2 pneumonia who presented with swelling and erythema involving both lower extremities left worse right 1. Bilateral lower extremity cellulitis Left worse than right. Patient admitted to regular nursing floor started on broad-spectrum antibiotic therapy. Ultrasound of the lower extremities ordered to rule out DVT 2. Chronic hypoxic respiratory failure secondary to recent admission for SARS-CoV-2 pneumonia ?Patient remains on supplemental oxygen 3. Morbid obesity with BMI of 64.2 ?Complicating patient's care 4. Anemia - Secondary to chronic disorder monitoring H&H and transfuse if patient becomes symptomatic or hemoglobin falls below 7 5. History of uterine/cervical CA ?Status post hysterectomy. Patient remains seen remission 6. DVT prophylaxis ?Lovenox Charges/Coding Visit Charges Inpatient E&M: 70980 Subs Hosp L3
--- NOTE | 2020-12-06 09:11 | CASEMGMT ---
Social Work Note Per business support professional questions, pt has completed HCPOA and LW, not provided copies to [facility] and pt unable to bring in copies. Jyotsna Bond GEOGRAPHIC ANALYST, DRAFTING INSTRUCTOR
--- NOTE | 2020-12-06 10:00 | CASEMGMT ---
RN CM ASSOCIATE PROFESSOR OF FORESTRY CM to room to meet with patient for initial transition planning/care coordination assessment. RN KATHIE introduced self and role at [facility]. Pt voices understanding and consents to assessment at this time. Pt lying in bed with O2 on in no distress at this time. Pt is A/O at this time and answers all questions appropriately. Care providers, pharmacy, and demographics verified/updated at this time. PCP: Dr Dietz Specialists:[place], onc; Pt sees at PT at [facility] for her lymphedema Preferred Pharmacy: [facility] while inpatient Insurance: [facility] Prescription Benefit: Yes Living Will/HPOA: Yes, states she has both. Her daughter, Veena Self, is her DPOA. Pt is aware that these are not on file at [facility] and she may bring in to be scanned into her chart. LNOK: Daughter, Veena; Angely Board, friend Living Arrangements: Lives in an apt w/her 2 children, ages 13 and 15. Dtr, Veena, lives in downstairs apt in same complex. Dtr assists her w/bathing/dressing and home tasks: cooking/meals, laundry, cleaning. Transportation: Pt states drives self and states no transportation concerns at this time. DME: States has the following DME: rails/grab bars, hand held shower, lift chair, cane, nebulizer, walker and tub bench. Pt reports she has O2 through [employer] at 3L continuous, 4 with exertion. She also states she only has 1/2 size tanks for portability that are not continuous and she would like the larger tanks. HHC/SNF: No hx of SNF. Had HHC in the past when she lived in [place]. Pt states no concerns with going home at time of dc. Pt states no further concerns/needs. CM to follow. Advised pt to ask CM if any further question/concerns/needs arise, voices understanding. Pt Goal: Home with continuation of outpt PT at [facility]. PLAN: Home with continuation of outpt PT at [facility]. TC to [employer] to verify pt O2 script. Per Anjelica, pt is on 3L with exertion only. Asked if patient could get the larger tanks. She states when they get more in stock she can but as of now they are low and reserved for COVID patients. Notified patient of this.
[2020-12-06] MEDS: Ibuprofen 400 MG Tablet PO ×2 (10:18→17:58)
[2020-12-06] MEDS: Montelukast 10 MG Tablet PO ×2 (10:18→21:16)
[2020-12-06] MEDS: Furosemide 40 MG Tablet PO (10:18)
[2020-12-06] MEDS: DULoxetine Hcl 20 MG Capsule PO ×2 (10:18→21:16)
[2020-12-06] MEDS: Enoxaparin 40 MG/0.4 ML Syringe SC ×2 (10:19→21:16)
--- NOTE | 2020-12-06 11:03 | PCS.PANDOC ---
PANDEMIC DOCUMENTATION INITIATED: Date: 10/30/2020 Time: 190
[2020-12-06] MEDS: guaiFENesin Dm 10 ML UDC PO ×2 (13:25→19:58)
--- NOTE | 2020-12-06 14:51 | RAD.NOTE ---
1205PM - Checked on the status of the PICC line insertion. Per Cheli, patient's R.N. exam is on HOLD as she is unsure of Dr. Izaguirre's plan/decision regarding the PICC line.
--- NOTE | 2020-12-06 14:58 | VDLE_ITS ---
Reason For Study: SWELLING RIGHT LEFT GSV is normal. CFV is compressible, spontaneous, phasic, CFV is compressible, spontaneous, phasic, competent, and demonstrates normal competent and demonstrates normal augmentation. augmentation. GSV is normal. FV is compressible, spontaneous, phasic, FV is compressible, spontaneous, phasic, competent and demonstrates normal competent and demonstrates normal augmentation. augmentation. POP V is compressible, spontaneous, phasic, POP V is compressible, spontaneous, phasic, competent and demonstrates normal competent and demonstrates normal augmentation. augmentation. T/P Trunk is compressible. T/P Trunk is compressible. PTV is compressible. PTV is compressible. Procedure This is a venous duplex using B-mode, color flow and spectral Doppler. Exam performed portable in patient room. The study was technically difficult. Due to bodyhabitus 66 450#. Bilateral PERV not visualized. A preliminary report was called and/or faxed to [facility]. VL/Venous Duplex US - Akhil Extrem Interpretation Summary No evidence for acute deep venous thrombosis bilateral lower extremities with p atent and compressible bilateral great saphenous veins. This was noted to be a technicall y difficult study secondary to body habitus. Images are difficult to interpret. Bilateral peroneal veins not visualized. Ordering Physician: Gil Shoemaker Referring Physician: Mireille Dietz Performed By: Petra Hanna, PILAR, RVT
--- NOTE | 2020-12-06 15:00 | CON.PCM.ID_ITS ---
Assessment & Plan Assessment/Plan (1) Cellulitis of left leg: PLAN: On vanc, sx improving. Encouraged her to get covid vaccine, she would consider Moderna. Will follow, thank you HPI Consult Data Date of Consult: 12/06/20 HPI Narrative HPI Narrative: HELGA JENSEN, is a 44 F who presented with 2-3 days of fever, chills, headache, cough, BLE redness, mild soreness. Had covid in September, admitted at that time, persistent dyspnea/hypoxia/aches since then. No trauma /scratches to her legs. Came to ED, admitted on vanc, feeling better today. Some mild nausea. Unvaccinated for covid. Full ROS performed and neg except as noted above. [facility] Medical History Anemia Asthma BMI 70 and over, adult Cancer Chronic pain Crohn disease DVT (deep venous thrombosis) Carole-Danlos syndrome GERD (gastroesophageal reflux disease) Hearing loss, left Hearing loss, right Irregular heart beat Kidney disease Kidney stones Lumbar spondylosis Lymphedema Migraines Morbid obesity Non-smoker Obesity On home oxygen therapy Renal atrophy Rheumatoid arthritis Splenomegaly T-cell lymphoma Home Medications Osteo Bi-Flex Triple Strength 2 tab PO DAILY 10/02/20 [History Last Taken 12/05/20 08:00] acetaminophen 1,300 mg PO Q12H 10/02/20 [History Last Taken 12/05/20 15:00] albuterol sulfate 1 inh INHALATION Q6H PRN 10/02/20 [History Last Taken 12/05/20 22:00] ciclesonide 1 puff INHALATION BID 10/02/20 [History Last Taken 12/05/20 21:00] duloxetine 20 mg PO BID 10/02/20 [History Last Taken 12/05/20 22:00] furosemide 40 mg PO DAILY 10/02/20 [History Last Taken 12/05/20 08:00] gabapentin 300 mg PO TID PRN 10/02/20 [History Last Taken 10/01/20] ibuprofen 400 mg PO DAILY PRN 10/02/20 [History Last Taken 12/05/20 22:00] montelukast 10 mg PO BID 10/02/20 [History Last Taken 12/05/20 22:00] doxycycline hyclate 100 mg PO BID 10/12/20 [History Last Taken 12/05/20 21:00] elderberry fruit [Elderberry] 200 mg PO DAILY 12/05/20 [History Last Taken 12/05/20 08:00] Allergy/AdvReac Type Severity Reaction Status Date / Time Nitrate Analogues Allergy Unknown throat/nose Verified 12/06/20 06:08 swelling adhesive tape Allergy Rash Verified 12/05/20 22:53 aspirin Allergy Angioedema Verified 12/05/20 22:53 benzonatate Allergy Shortness Verified 12/05/20 22:53 of breath cephalexin Allergy Rash Verified 12/05/20 22:53 coconut oil Allergy throat Verified 12/06/20 06:08 swells copper Allergy skin peels Verified 12/06/20 06:08 formaldehyde Allergy Anaphylaxis Verified 12/05/20 22:53 Iodine and Iodide Containing Allergy Anaphylaxis Verified 12/05/20 22:53 Produc latex Allergy Anaphylaxis Verified 12/05/20 22:53 mold Allergy Anaphylaxis Verified 12/05/20 22:53 nickel Allergy Rash Verified 12/05/20 22:53 nitrofurantoin Allergy Anaphylaxis Verified 12/05/20 22:53 palm oil Allergy Hives Verified 12/06/20 06:08 Penicillins Allergy Rash Verified 12/05/20 22:53 soy Allergy Diarrhea Verified 12/06/20 06:08 Sulfa (Sulfonamide Allergy Rash Verified 12/05/20 22:53 Antibiotics) topiramate Allergy goes Verified 12/06/20 06:08 crazy aspartame AdvReac kidneyfailu Verified 12/06/20 06:08 re lactose AdvReac Nausea Verified 12/05/20 22:53 morphine AdvReac confusion Verified 12/06/20 06:08 eggs Allergy Rash Uncoded 12/05/20 22:53 gold Allergy Rash Uncoded 12/05/20 22:53 metals AdvReac Rash Uncoded 12/06/20 06:08 Family History (Updated 12/06/20 @ 05:[address] Erin Izaguirre MD) Father Heart disease Mother Diabetes Surgical History History of partial hysterectomy Hx of pelvic surgery Previous section Social History (Updated 12/06/20 @ 05:[address] Erin Izaguirre MD) household members: children Smoking Status: Never smoker alcohol intake: current alcohol intake frequency: holidays/special occasions only substance use type: does not use Physical Exam Const alert and no apparent distress General Appearance: cooperative Exam Limitations: no limitations HEENT normocephalic and head/scalp atraumatic Eyes PERRL and EOMs intact bilaterally Neck supple and No nodes Resp clear to auscultation bilaterally Auscultation: diminished lung sounds Cardio regular rate and regular rhythm GI normal to inspection, nondistended, normoactive bowel sounds Extremity General Extremity: edema Skin Skin Narrative: mild BLE redness Neuro CN's II-XII intact bilaterally Lab / Micro Data Result Diagrams: 12/06/20 00:27 12/06/20 00:27 Labs: Laboratory Results - last 24 hr 12/06/20 00:27: WBC 16.2 H, RBC 3.61 L, Hgb 8.8 L, Hct 30.0 L, MCV 83.1, MCH 24.4 L, MCHC 29.3 L, RDW Std Deviation 51.5 H, RDW Coeff of Fanny 17.1 H, Plt Count 224, MPV 10.3, Immature Gran % (Auto) 1.500 H, Neut % (Auto) 89.9 H, Lymph % (Auto) 4.9 L, Sac % (Auto) 3.1, Eos % (Auto) 0.4, Baso % (Auto) 0.2, Absolute Neuts (auto) 14.6 H, Absolute Lymphs (auto) 0.80 L, Nucleated RBC % 0.1, Anisocytosis 1+ 12/06/20 00:27: Sodium 133 L, Potassium 3.5, Chloride 96 L, Carbon Dioxide 34.0 H, Anion Gap 3 L, BUN 14, Creatinine 0.81, Estim Creat Clear Calc 83.84, Est GFR (MDRD) Af Amer 98, Est GFR (MDRD) Non-Af 81, BUN/Creatinine Ratio 17.2, Glucose 125 H, Calcium 8.7, Total Bilirubin 0.40, AST 35, ALT 20, Alkaline Phosphatase 92, Troponin I High Sens 5, Total Protein 7.6, Albumin 2.2 L, Globulin 5.4 H, Albumin/Globulin Ratio 0.4 L 12/06/20 00:27: Lactic Acid 1.4 12/06/20 02:55: Urine Color Yellow, Urine Clarity Clear, Urine pH 5.0, Ur Specific [place] 1.020, Urine Protein 100 H, Urine Glucose (UA) Normal, Urine Ketones 5 H, Urine Occult Blood 10 H, Urine Nitrite Negative, Urine Bilirubin Negative, Urine Urobilinogen 4 H, Ur Leukocyte Esterase Negative, Urine RBC 0 SEEN, Urine WBC 0-5 SEEN, Ur Squamous Epith Cells 0 SEEN, Amorphous Sediment RARE, Urine Bacteria 1+, Urine Mucus 0 SEEN Micro: Microbiology 12/06/20 08:45 Mucosa - Nasopharyngeal Respiratory Panel (PCR) - Final 12/05/20 23:43 Nasal Secretion SARS-CoV-2 Antigen (Rapid) - Final Radiology Impression Chest X-Ray 12/06/20 00:00 IMPRESSION: Mild bilateral basilar atelectasis. Underexpanded lungs with vascular crowding. Residual density within the left mid lower lung field which may indicate residual mild infiltrate versus atelectasis. Electronically Signed: Ursula Cuellar MD at 1:06 EDT , Service support , Brain CT 12/06/20 23:22 IMPRESSION: Normal unenhanced CT scan of the brain. Electronically Signed: Ursula Cuellar MD at 1:52 EDT , Service support ,
[2020-12-06] MEDS: Budesonide Respules 0.5 MG/2 ML AMPUL.NEB. INHALATION (20:36)
--- NOTE | 2020-12-06 23:22 | CT_ITS ---
STUDY: CT BRAIN WITHOUT CONTRAST REASON FOR EXAM: Female, 44 years old. headache RADIATION DOSAGE (If Supplied By Facility): CTDIvol = ( 44.99 ) mGy, DLP = ( 897.35 ) mGycm TECHNIQUE: Transaxial CT imaging of the brain was performed without administration of intravenous contrast material. Individualized dose optimization techniques were used for this CT. COMPARISON: No relevant priors. FINDINGS: Normal soft tissue structures. Normal calvarium. Normal size ventricles and extra-axial spaces for the patient''s age. Normal white matter tracts of the cerebral hemispheres. Normal basal ganglia and thalami. Normal brainstem. Normal cerebellum. There is no intracranial hemorrhage. There are no findings of an acute ischemic infarction. Post retention cyst within the right maxillary sinus measuring 2 cm the visualized paranasal sinuses are clear. There are bilateral mastoid. CT/Brain/Head without Contrast IMPRESSION: Normal unenhanced CT scan of the brain. Electronically Signed: Ursula Cuellar MD at 1:52 EDT , Service support ,
[2020-12-07] VITALS (15 sets, daily range): BP systolic 126–145; BP diastolic 55–68; PULSE 112–129; RESP 18–20; TEMP 36.4–37.1; O2SAT 91–100
[2020-12-07] MEDS: 0.9% Normal Saline 1,000 ML 125 ML IV (02:02)
[2020-12-07] MEDS: Acetaminophen 325 MG Tablet 650 MG PO ×3 (04:11→23:17)
[2020-12-07 06:58] LABS: Absolute Lymphocyte Count 0.96 X10^3/uL (0.83-4.51); Absolute Neutrophil Count 11.7 X10^3/uL (2.0-7.7); Basophil# 0.04 X10^3/uL; Basophil% 0.3 % (0-1); Eosinophil# 0.28 X10^3/uL; Hematocrit 29.9 % (37-47); Hemoglobin 8.7 g/dL (12.0-15.0); Lymphocyte # 0.96 X10^3/ul (0.83-4.51); Lymphocyte % 6.9 % (19-41); Mean Corp Hgb Conc 29.1 g/dL (32-36); Mean Corpuscular Volume 82.4 fL (81-99); Mean Platelet Vol. 9.8 fl (6.2-12.0); Monocyte# 0.79 X10^3/uL; Monocyte% 5.7 % (0-10); NRBC Flagged by Analyzer 0.2 % (0-5); Neutrophil # 11.66 X10^3/uL (2.7-7.7); Neutrophil % 83.8 % (47-70); Platelet Count 219 K/mm3 (150-450); RBC Distribution Width CV 17.2 % (11.6-14.6); RBC Distribution Width SD 52.1 fl (35.1-43.9); Red Blood Count 3.63 M/mm3 (4.2-5.4); White Blood Count 13.9 K/mm3 (4.4-11.0)
--- NOTE | 2020-12-07 07:21 | RAD.NOTE ---
0718 - spoke w/ Florence Corey. - still unsure of status & will pass on to next caregiver Raymundo Hutchinson to check on status of exam.
[2020-12-07 07:22] LABS: Anion Gap 4 (5-15); BUN 12 mg/dL (7-18); BUN/Creat Ratio 20.5 RATIO (10-20); Chloride 99 mmol/L (98-107); Creatinine, Serum 0.59 mg/dL (0.55-1.02); EST Glomerular Filtration Rate 119 mL/min (>60); Est Glom Filt Rate - Afr Amer 144 mL/min (>60); Glucose 112 mg/dL (74-106); Magnesium 1.8 mg/dL (1.6-2.6); Potassium 3.4 mmol/L (3.5-5.1); Sodium Level 135 mmol/L (136-145)
--- NOTE | 2020-12-07 08:07 | PN.HOSP_ITS ---
Subjective Subjective Patient seen erythema involving both lower extremities less intense than the day prior. WBC count still remains elevated Objective Data Objective Data Vital Signs: Vital Signs Temp Pulse Resp BP Pulse Ox 97.5 F L 119 H 20 H 126/64 H 99 12/07/20 03:24 12/07/20 07:35 12/07/20 03:24 12/07/20 03:24 12/07/20 03:24 Oxygen Flow Rate (L/min) 2 Oxygen Delivery Method Nasal Cannula Weight: 180.5 kg Body Mass Index (BMI) 64.2 Intake & Output: Intake and Output for Last 24 Hours 12/05/20 12/06/20 12/07/20 23:59 23:59 23:59 Intake Total 5250.42 / 5250.42 1308.33 / 1308.33 Output Total 1000 / 1000 Balance 4250.42 / 4250.42 1308.33 / 1308.33 Lab / Micro Data Result Diagrams: 12/07/20 06:50 12/07/20 06:50 Labs: Laboratory Results - last 24 hr 12/07/20 06:50: WBC 13.9 H, RBC 3.63 L, Hgb 8.7 L, Hct 29.9 L, MCV 82.4, MCH 24.0 L, MCHC 29.1 L, RDW Std Deviation 52.1 H, RDW Coeff of Fanny 17.2 H, Plt Count 219, MPV 9.8, Immature Gran % (Auto) 1.300 H, Neut % (Auto) 83.8 H, Lymph % (Auto) 6.9 L, [place] % (Auto) 5.7, Eos % (Auto) 2.0, Baso % (Auto) 0.3, Absolute Neuts (auto) 11.7 H, Absolute Lymphs (auto) 0.96, Nucleated RBC % 0.2 12/07/20 06:50: Sodium 135 L, Potassium 3.4 L, Chloride 99, Carbon Dioxide 32.0, Anion Gap 4 L, BUN 12, Creatinine 0.59, Estim Creat Clear Calc 115.10, Est GFR (MDRD) Af Amer 144, Est GFR (MDRD) Non-Af 119, BUN/Creatinine Ratio 20.5 H, Glucose 112 H, Calcium 8.0 L, Magnesium 1.8 Micro: Microbiology 12/06/20 08:45 Mucosa - Nasopharyngeal Respiratory Panel (PCR) - Final 12/05/20 23:43 Nasal Secretion SARS-CoV-2 Antigen (Rapid) - Final Radiography Diagnostic Testing: Radiology Impression Venous Doppler Study 12/06/20 14:58 Interpretation Summary No evidence for acute deep venous thrombosis bilateral lower extremities with patent and compressible bilateral great saphenous veins. This was noted to be a technically difficult study secondary to body habitus. Images are difficult to interpret. Bilateral peroneal veins not visualized. Ordering Physician: Gil Shoemaker Referring Physician: Mireille Dietz Performed By: Petra Hanna RDCS, RVT Physical Exam Narrative GENERAL: Patient appears ill looking HEENT: Atraumatic; EYES; Anicteric, Normal Conjunctiva NECK; supple, normal thyroid, RESPIRATORY: Diminished to auscultation CARDIOVASCULAR: Regular S1 S2, tachycardic GI: soft, normoactive bowel sounds, : No Renal angle tenderness; EXTREMITIES: No edema, no clubbing, MUSCULOSKELETAL: no muscle waisting NEURO: Awake; no lateralizing signs. SKIN: erythema and warmth both lower extremities left worse than right PSYCH; Flat affect Assessment & Plan Assessment/Plan (1) Cellulitis of left leg: PLAN: Patient is a 44-year-old lady with history of previous admission for cellulitis involving the right lower extremity as well as SARS-CoV-2 pneumonia who presented with swelling and erythema involving both lower extremities left worse right 1. Bilateral lower extremity cellulitis Left worse than right. Patient admitted to regular nursing floor started on broad-spectrum antibiotic therapy. Ultrasound of the lower extremities ordered to rule out DVT -12/07/2020; Patient seen erythema involving both lower extremities less intense than the day prior. WBC count still remains elevated. Venous duplex obtained came back negative. Patient was also seen in consultation by Dr. Villarreal with infectious diseases note and recommendations reviewed. 2. Chronic hypoxic respiratory failure secondary to recent admission for SARS-CoV-2 pneumonia ?Patient remains on supplemental oxygen 3. Morbid obesity with BMI of 64.2 ?Complicating patient's care 4. Anemia - Secondary to chronic disorder monitoring H&H and transfuse if patient becomes symptomatic or hemoglobin falls below 7 5. History of uterine/cervical CA ?Status post hysterectomy. Patient remains seen remission 6. DVT prophylaxis ?Lovenox Charges/Coding Visit Charges Inpatient E&M: 58876 Subs Hosp L2
[2020-12-07] MEDS: Budesonide Respules 0.5 MG/2 ML AMPUL.NEB. INHALATION (09:26)
[2020-12-07] MEDS: Furosemide 40 MG Tablet PO (09:35)
[2020-12-07] MEDS: DULoxetine Hcl 20 MG Capsule PO ×2 (09:35→19:59)
[2020-12-07] MEDS: Enoxaparin 40 MG/0.4 ML Syringe SC ×2 (09:35→19:59)
[2020-12-07] MEDS: Montelukast 10 MG Tablet PO ×2 (09:35→19:59)
[2020-12-07] MEDS: Ibuprofen 400 MG Tablet PO (13:18)
[2020-12-07 14:02] LABS: Vancomycin, Trough Level 12.9 ug/mL (5.0-15.0)
[2020-12-07] MEDS: 0.9% Saline Lock 10 ML Syringe IV (14:40)
--- NOTE | 2020-12-07 15:45 | PCM.PN.ID ---
Physical Exam Narrative Feeling better, no fever, legs less red and sore. Const alert General Appearance: cooperative Resp normal air movement and clear to auscultation bilaterally Cardio regular rate and regular rhythm GI normal to inspection, nondistended, normoactive bowel sounds Extremity General Extremity: edema Skin Skin Narrative: legs less red ID ID: Route of nutrition/ use of supplements: [] Nutritional Intake: [] IV Site: [] Aj Catheter: [] Assessment & Plan Assessment/Plan (1) Cellulitis of left leg: PLAN: On vanc, sx improving. She agrees to receive Moderna covid vaccine inpatient. Ok for d/c home on doxy 100mg bid for 4 more days. Will follow as needed
[2020-12-07] MEDS: Potassium Chloride Oral Tablet 20 MEQ PO (16:42)
--- NOTE | 2020-12-07 17:01 | PCM.RX.CS ---
Consult Type of Consult: Follow-up Suspected Infection: Skin/Soft tissue Labs: Sodium 135 mmol/L (136-145) L 12/07/20 06:50 Potassium 3.4 mmol/L (3.5-5.1) L 12/07/20 06:50 Chloride 99 mmol/L (98-107) 12/07/20 06:50 Carbon Dioxide 32.0 mmol/L (21.0-32.0) 12/07/20 06:50 Anion Gap 4 (5-15) L 12/07/20 06:50 BUN 12 mg/dL (7-18) 12/07/20 06:50 Creatinine 0.59 mg/dL (0.55-1.02) 12/07/20 06:50 Est GFR (MDRD) Af Amer 144 mL/min (>60) 12/07/20 06:50 Est GFR (MDRD) Non-Af 119 mL/min (>60) 12/07/20 06:50 BUN/Creatinine Ratio 20.5 RATIO (10-20) H 12/07/20 06:50 Glucose 112 mg/dL (74-106) H 12/07/20 06:50 Vancomycin Trough 12.9 ug/mL (5.0-15.0) 12/07/20 13:14 Microbiology: Microbiology 12/06/20 08:45 Mucosa - Nasopharyngeal Respiratory Panel (PCR) - Final 12/05/20 23:43 Nasal Secretion SARS-CoV-2 Antigen (Rapid) - Final Goal Trough: 10-15 mcg/mL Pharmacy Plan for Drug Dosing: VANCOMYCIN LEVEL RECEIVED Current Vancomycin Dose: 1250mg q12h (0130,1330) Number of Doses Received: 2000mg x1 on 12/06/20 at 0123, 1250mg x2 Vancomycin Level: 12.9 Hours Since Last Dose: 12 Renal Function: SrCr 0.59 Renal Function Trend: CrCl improving Lab/Micro: Vancomycin Plan/Comments: pt's ordered goal trough is 10-15. pts trough resulted at 12.9. recommend continuing current dose of 1250mg q12h and checking trough again in 2 days Pending Level: 12/09/20 at 0100 Pharmacy Service will continue to monitor and adjust dosing as required. Follow-Up Labs: Trough Vancomycin - 12/09/20 at 0100
[2020-12-07] MEDS: guaiFENesin Dm 10 ML UDC PO (23:19)
[2020-12-08] VITALS (7 sets, daily range): BP systolic 117–133; BP diastolic 62–64; PULSE 109–124; RESP 17–18; TEMP 36.6–37.4; O2SAT 97–99
[2020-12-08] MEDS: Ibuprofen 400 MG Tablet PO ×2 (01:48→10:32)
[2020-12-08] MEDS: Gabapentin 300 MG Capsule PO (01:49)
[2020-12-08 05:40] LABS: Hematocrit 29.1 % (37-47); Hemoglobin 8.6 g/dL (12.0-15.0); Mean Corp Hgb Conc 29.6 g/dL (32-36); Mean Corpuscular Hgb 23.9 pg (27.0-32.0); Mean Corpuscular Volume 80.8 fL (81-99); Mean Platelet Vol. 10.3 fl (6.2-12.0); POSITIVE COUNT YES; POSITIVE MORPHOLOGY YES; Platelet Count 236 K/mm3 (150-450); RBC Distribution Width CV 17.6 % (11.6-14.6); RBC Distribution Width SD 51.8 fl (35.1-43.9); White Blood Count 14.9 K/mm3 (4.4-11.0)
[2020-12-08 05:54] LABS: Differential Indicated MANUAL DIFF
[2020-12-08 06:01] LABS: Anion Gap 3 (5-15); BUN 11 mg/dL (7-18); Calcium,Total 8.7 mg/dL (8.5-10.1); Chloride 100 mmol/L (98-107); Creatinine, Serum 0.61 mg/dL (0.55-1.02); EST Glomerular Filtration Rate 113 mL/min (>60); Est Glom Filt Rate - Afr Amer 137 mL/min (>60); Estimated Creatinine Clearance 111.32 ml/min; Glucose 102 mg/dL (74-106); Potassium 3.2 mmol/L (3.5-5.1); Sodium Level 137 mmol/L (136-145)
[2020-12-08 06:39] LABS: Differential Comment MANUAL DIFF; Eosinophil 7 % (0-5); Lymphocyte 8 % (19-41); Metamyelocyte 1 % (0-1); Monocyte 4 % (0-10); Neutrophil-Band 2 % (0-5); Neutrophil-Segmented 78 % (47-70); Total Cells Counted 100 (MANUAL DIFF)
[2020-12-08 06:40] LABS: Platelet Estimate ADEQUATE (ADEQ); Red Cell Morphology NORM C+C NORMAL (NORM C&C)
[2020-12-08] MEDS: Budesonide Respules 0.5 MG/2 ML AMPUL.NEB. INHALATION (06:48)
--- NOTE | 2020-12-08 08:01 | DS.PCM_ITS ---
Providers Date of Admission: 12/06/20 Primary Care Physician: Dr. Mireille Dietz MD Consultations 12/06/20 09:08 Consult: Infectious Disease Routine Consulting Provider: Lloyd Villarreal Reason for Consult: extensive cellulitis EMERGENT Consult: No MD Notified: Yes Date Notified: 12/06/20 Time Notified: 09:13 Method of Notification: Text Reason For Visit: LLE CELLULITIS Diagnosis Discharge Diagnosis (1) Cellulitis of left leg: Status: Acute Code(s): L03.116 - Cellulitis of left lower limb Medications at Discharge Home Medications Osteo Bi-Flex Triple Strength 2 tab PO DAILY 10/02/20 acetaminophen 1,300 mg PO Q12H 10/02/20 albuterol sulfate 1 inh INHALATION Q6H PRN 10/02/20 ciclesonide 1 puff INHALATION BID 10/02/20 duloxetine 20 mg PO BID 10/02/20 furosemide 40 mg PO DAILY 10/02/20 gabapentin 300 mg PO TID PRN 10/02/20 ibuprofen 400 mg PO DAILY PRN 10/02/20 montelukast 10 mg PO BID 10/02/20 elderberry fruit 200 mg PO DAILY 12/05/20 doxycycline hyclate 100 mg PO BID #10 cap 12/08/20 Hospital Course Summary of Care Provided Minutes Spent on Discharge: 35 Hospital Course: Patient is a 44-year-old lady with history of previous admission for cellulitis involving the right lower extremity as well as SARS-CoV-2 pneumonia who presented with swelling and erythema involving both lower extremities left worse right 1. Bilateral lower extremity cellulitis Left worse than right. Patient admitted to regular nursing floor started on broad-spectrum antibiotic therapy. Ultrasound of the lower extremities ordered to rule out DVT -12/07/2020; Patient seen erythema involving both lower extremities less intense than the day prior. WBC count still remains elevated. Venous duplex obtained came back negative. Patient was also seen in consultation by Dr. Villarreal with infectious diseases note and recommendations reviewed. ?12/08/2020; patient was discharged home on doxycycline per recommendations from infectious disease 2. Chronic hypoxic respiratory failure secondary to recent admission for SARS-CoV-2 pneumonia ?Patient remains on supplemental oxygen 3. Morbid obesity with BMI of 64.2 ?Complicating patient's care 4. Anemia - Secondary to chronic disorder monitoring H&H and transfuse if patient becomes symptomatic or hemoglobin falls below 7 5. History of uterine/cervical CA ?Status post hysterectomy. Patient remains seen remission 6. DVT prophylaxis ?Lovenox Physical Exam Narrative GENERAL: Patient appears ill looking HEENT: Atraumatic; EYES; Anicteric, Normal Conjunctiva NECK; supple, normal thyroid, RESPIRATORY: Diminished to auscultation CARDIOVASCULAR: Regular S1 S2, tachycardic GI: soft, normoactive bowel sounds, : No Renal angle tenderness; EXTREMITIES: No edema, no clubbing, MUSCULOSKELETAL: no muscle waisting NEURO: Awake; no lateralizing signs. SKIN: erythema and warmth both lower extremities?improving PSYCH; Flat affect Weight / BMI Weight Weight: 180.5 kg Body Mass Index (BMI) 64.2 ABG / Lab / Microbiology Data Result Diagrams: 12/08/20 05:25 12/08/20 05:25 Laboratory: Laboratory Results - last 24 hr 12/07/20 13:14: Vancomycin Trough 12.9 12/08/20 05:25: WBC 14.9 H, RBC 3.60 L, Hgb 8.6 L, Hct 29.1 L, MCV 80.8 L, MCH 23.9 L, MCHC 29.6 L, RDW Std Deviation 51.8 H, RDW Coeff of Fanny 17.6 H, Plt Count 236, MPV 10.3, Neut % (Auto) Not Reportable, Total Counted 100, Neutrophils % (Manual) 78 H, Band Neutrophils % 2, Lymphocytes % (Manual) 8 L, Monocytes % (Manual) 4, Eosinophils % (Manual) 7 H, Metamyelocytes % 1, Differential Comment MANUAL DIFF, Diff Path Review May foll, Platelet Estimate ADEQUATE, RBC Morphology NORM C+C 12/08/20 05:25: Sodium 137, Potassium 3.2 L, Chloride 100, Carbon Dioxide 34.0 H , Anion Gap 3 L, BUN 11, Creatinine 0.61, Estim Creat Clear Calc 111.32, Est GFR (MDRD) Af Amer 137, Est GFR (MDRD) Non-Af 113, BUN/Creatinine Ratio 18.0, Glucose 102, Calcium 8.7 Microbiology: Microbiology 12/06/20 08:45 Mucosa - Nasopharyngeal Respiratory Panel (PCR) - Final 12/05/20 23:43 Nasal Secretion SARS-CoV-2 Antigen (Rapid) - Final D/C Instructions Discharge Diet: No restrictions Discharge Activity: Return to Normal Activity Call your doctor if you observe: Fever of 101 or Higher, Shortness of breath, F ainting spells and Chest pain Meaningful Use Info Meaningful Use Diagnoses (Choose all that apply): None applicable Discharge Plan Admission Admit Date/Time: 12/06/20 05:10 Attending Provider: Gil Shoemaker Primary Care Provider: Mireille Deitz Consulting Providers: Lloyd Villarreal Discharge Orders/Prescriptions Prescriptions: Continued duloxetine 20 mg Capsule, Delayed Rel Sprinkle 20 mg PO BID RF: 0 furosemide 40 mg Tablet 40 mg PO DAILY RF: 0 gabapentin 300 mg Capsule 300 mg PO TID PRN (Reason: muscle spasms) RF: 0 montelukast 10 mg Tablet 10 mg PO BID RF: 0 ciclesonide 80 mcg/actuation Hfa Aerosol Inhaler 1 puff INHALATION BID RF: 0 albuterol sulfate 90 mcg/actuation Aerosol Powdr Breath Activated 1 inh INHALATION Q6H PRN (Reason: Wheezing) RF: 0 acetaminophen 650 mg Tablet Extended Release 1,300 mg PO Q12H RF: 0 ibuprofen 200 mg Tablet 400 mg PO DAILY PRN (Reason: Pain) RF: 0 Osteo Bi-Flex Triple Strength 750 mg-644 mg- 30 mg-1 mg Tablet 2 tab PO DAILY RF: 0 elderberry fruit 200 mg Capsule 200 mg PO DAILY RF: 0 doxycycline hyclate 100 mg capsule 100 mg PO BID Qty: 10 RF: 0 Referrals / Follow Up: Mireille Dietz MD [Primary Care Provider] - Within 1 Week Disposition Disposition (needs filled in before D/C Order can be placed): Home, Self Care Charges/Coding Visit Charges Inpatient E&M: 47683 Disch Hosp
[2020-12-08] MEDS: Potassium Chloride Oral Tablet 20 MEQ PO (08:08)
[2020-12-08] MEDS: Furosemide 40 MG Tablet PO (10:31)
[2020-12-08] MEDS: DULoxetine Hcl 20 MG Capsule PO (10:31)
[2020-12-08] MEDS: Montelukast 10 MG Tablet PO (10:32)
[2020-12-08] MEDS: guaiFENesin Dm 10 ML UDC PO (10:33)
[2020-12-08] MEDS: Enoxaparin 40 MG/0.4 ML Syringe SC (10:33)
--- NOTE | 2020-12-08 12:30 | CASEMGMT ---
Spoke with pt nurse Frandy to make aware that pt is ordered O2 at 3L with exertion and she would need to be tested at rest and on the 3L.
[2020-12-08 14:19] LABS: Absolute Neutrophil Count 11.9 X10^3/uL (2.0-7.7)
[2020-12-11 13:59] LABS: Pathologist Review Reviewed
== END 2020-12-08 15:22 | disposition home or self-care (01) | DRG 383 ==
LOC: ED 12-06 03:25 → MS3 12-06 05:53
PROVIDERS: Admitting Provider Family Medicine; Emergency Provider Emergency Medicine; PCP Internal Medicine; Visit Provider Internal Medicine
DX: L03.116 Cellulitis of left lower limb (principal); L03.115 Cellulitis of right lower limb; E66.01 Morbid (severe) obesity due to excess calories; Z68.45 Body mass index [BMI] 70 or greater, adult; J98.11 Atelectasis; G43.909 Migraine, unspecified, not intractable, without status migrainosus; G89.29 Other chronic pain; H91.93 Unspecified hearing loss, bilateral; I89.0 Lymphedema, not elsewhere classified; D63.8 Anemia in other chronic diseases classified elsewhere; D64.9 Anemia, unspecified; K50.90 Crohn's disease, unspecified, without complications; J45.909 Unspecified asthma, uncomplicated; J96.11 Chronic respiratory failure with hypoxia; K21.9 Gastro-esophageal reflux disease without esophagitis; Q79.60 Ehlers-Danlos syndrome, unspecified; M06.9 Rheumatoid arthritis, unspecified; Z99.81 Dependence on supplemental oxygen; Z85.42 Personal history of malignant neoplasm of other parts of uterus; Z85.41 Personal history of malignant neoplasm of cervix uteri; Z86.16 Personal history of COVID-19; Z86.718 Personal history of other venous thrombosis and embolism; Z87.01 Personal history of pneumonia (recurrent); Z87.442 Personal history of urinary calculi; Z85.72 Personal history of non-Hodgkin lymphomas; Z79.899 Other long term (current) drug therapy
CPT/HCPCS: 0011A; 36415; 70450; 71045; 80048; 80053; 80202; 81001; 83605; 83735; 84484; 85025; 87040; 87426; 87633; 91301; 93005; 93970; 94640; 97163; 97166; 97530; 97535; 97802; 99251; 99285; J7030; J7040; J7050; A4216; G0463; J2405

== ENCOUNTER 2020-12-19 22:42 | Inpatient (IN) | payer OTHER, MEDICAID, SELFPAY ==
[2020-12-19 22:45] VITALS: BP 116/60; PULSE 114; RESP 20; TEMP 37; O2SAT 100; BMI 73.7
--- NOTE | 2020-12-19 23:13 | EDS_ITS ---
HPI History of Present Illness Chief Complaint: Cellulitis Detail of Chief Complaint: Concern for cellulitis of her lower extremities Narrative Narrative: Patient presents to the emergency department complaint of redness and swelling to lower extremities. Patient complains of oozing and seeping. She has had subjective fever low-grade at home over the last week or so it has been and then 99 range. Patient denies chills or sweats. She was seen by the nurse practitioner today for her primary care physician who referred her to the hospital for admission for IV antibiotics. Patient was admitted several weeks ago for same and was treated with broad-spectrum antibiotics. Patient has history of Carole-Danlos syndrome as well as lymphedema and history of T-cell lymphoma. Patient has history of asthma. Prior similar symptoms: Yes PFSH PFSH Medical History Anemia Asthma BMI 70 and over, adult Cancer Chronic pain Crohn disease DVT (deep venous thrombosis) Carole-Danlos syndrome GERD (gastroesophageal reflux disease) Hearing loss, left Hearing loss, right Irregular heart beat Kidney disease Kidney stones Lumbar spondylosis Lymphedema Migraines Morbid obesity Non-smoker Obesity On home oxygen therapy Renal atrophy Rheumatoid arthritis Splenomegaly T-cell lymphoma Home Medications Osteo Bi-Flex Triple Strength 2 tab PO DAILY 10/02/20 [History Last Taken 12/05/20 08:00] acetaminophen 1,300 mg PO Q12H 10/02/20 [History Last Taken 12/05/20 15:00] albuterol sulfate 1 inh INHALATION Q6H PRN 10/02/20 [History Last Taken 12/05/20 22:00] ciclesonide 1 puff INHALATION BID 10/02/20 [History Last Taken 12/05/20 21:00] duloxetine 20 mg PO BID 10/02/20 [History Last Taken 12/05/20 22:00] furosemide 40 mg PO DAILY 10/02/20 [History Last Taken 12/05/20 08:00] gabapentin 300 mg PO TID PRN 10/02/20 [History Last Taken 10/01/20] ibuprofen 400 mg PO DAILY PRN 10/02/20 [History Last Taken 12/05/20 22:00] montelukast 10 mg PO BID 10/02/20 [History Last Taken 12/05/20 22:00] elderberry fruit 200 mg PO DAILY 12/05/20 [History Last Taken 12/05/20 08:00] doxycycline hyclate 100 mg PO BID #10 cap 12/08/20 [Rx Last Taken Unknown] mupirocin 1 applic TOPICAL DAILY 12/19/20 [History Last Taken Unknown] Allergy/AdvReac Type Severity Reaction Status Date / Time Nitrate Analogues Allergy Unknown throat/nose Verified 12/19/20 22:45 swelling adhesive tape Allergy Rash Verified 12/19/20 22:45 aspirin Allergy Angioedema Verified 12/19/20 22:45 benzonatate Allergy Shortness Verified 12/19/20 22:45 of breath cephalexin Allergy Rash Verified 12/19/20 22:45 coconut oil Allergy throat Verified 12/19/20 22:45 swells copper Allergy skin peels Verified 12/19/20 22:45 formaldehyde Allergy Anaphylaxis Verified 12/19/20 22:45 Iodine and Iodide Containing Allergy Anaphylaxis Verified 12/19/20 22:45 Produc latex Allergy Anaphylaxis Verified 12/19/20 22:45 mold Allergy Anaphylaxis Verified 12/19/20 22:45 nickel Allergy Rash Verified 12/19/20 22:45 nitrofurantoin Allergy Anaphylaxis Verified 12/19/20 22:45 palm oil Allergy Hives Verified 12/19/20 22:45 Penicillins Allergy Rash Verified 12/19/20 22:45 soy Allergy Diarrhea Verified 12/19/20 22:45 Sulfa (Sulfonamide Allergy Rash Verified 12/19/20 22:45 Antibiotics) topiramate Allergy goes Verified 12/19/20 22:45 crazy aspartame AdvReac kidneyfailu Verified 12/19/20 22:45 re lactose AdvReac Nausea Verified 12/19/20 22:45 morphine AdvReac confusion Verified 12/19/20 22:45 eggs Allergy Rash Uncoded 12/19/20 22:45 gold Allergy Rash Uncoded 12/19/20 22:45 metals AdvReac Rash Uncoded 12/19/20 22:45 Family History (Updated 12/06/20 @ 05:[address] Erin Izaguirre MD) Father Heart disease Mother Diabetes Surgical History History of partial hysterectomy Hx of pelvic surgery Previous section Social History (Updated 12/06/20 @ 05:[address] Erin Izaguirre MD) household members: children Smoking Status: Never smoker alcohol intake: current alcohol intake frequency: holidays/special occasions only substance use type: does not use ROS ROS ED Constitutional Constitutional ED: Reports systems reviewed and no addt'l complaints, except as documented and subjective; Denies body ache(s), change in weight or chills Eyes Eyes: Denies acute decrease in peripheral vision, change in vision, double vision or loss of vision ENT ENT ED: Reports none; Denies ear pain, lip swelling, loss taste/smell, neck pain, otalgia or sore throat Cardiovascular Cardiovascular: Reports none; Denies abdominal pain, chest pain with activity, leg edema, lightheadedness, palpitations, rapid heart rate or syncope Respiratory/Chest Respiratory/Chest: Reports none; Denies change in mental status, dry cough, dyspnea, hemoptysis, shortness of breath at rest or shortness of breath with exertion Gastrointestinal Gastrointestinal: Reports none; Denies abdominal pain, change in stool character, diarrhea, hematemesis, hematochezia, melena, rectal bleeding or vomiting Genitourinary Genitourinary ED: Reports none; Denies abdominal discomfort, anuria, dysuria, genital pain or polyuria Musculoskeletal Musculoskeletal: Reports none; Denies arthralgias, back pain, difficulty walking, extremity pain, muscle weakness or myalgias Integumentary Reports none, rash and other Details: Cellulitis both lower extremities ; Denies abscess Neurologic Neurologic: Reports none; Denies abnormal gait, confusion, focal weakness, frequent falls, headache(s), loss of vision, numbness, paresthesias, radicular pain, vertigo or weakness Psychiatric Psychiatric: Reports systems reviewed and no addt'l complaints, except as documented and none; Denies behavioral changes, confusion, difficulty concentrating, hallucinations, suicidal ideation, tactile hallucinations or visual hallucinations Endocrine Endocrinology: Denies none, cold intolerance, excessive sweating, fatigue or heat intolerance Hematologic/Lymphatic Hematologic/Lymphatic: Reports none; Denies anemia, easy bleeding or easy bruising Allergic/Immunologic Allergic/Immunologic ED: Denies as per HPI, none, lip swelling, mouth swelling, throat swelling, tongue swelling or hives EXAM Physical Exam Const Vital Signs: 12/19/20 22:45 Temperature 98.6 F Temperature Source Temporal Pulse Rate 114 H Respiratory Rate 20 H Blood Pressure 116/60 Blood Pressure Mean 78 Pulse Ox 100 Oxygen Delivery Method Room Air Positive well nourished and well developed General Appearance ED: well developed and NAD HEENT Reports TM's clear and moist mucous membranes normocephalic and atraumatic; Negative for trauma or tenderness Tympanic Membrane ED: Yes TM's clear Eyes PERRL and EOMs intact bilaterally General Eye ED: Negative for pale conjunctiva or scleral icterus Neck no lymphadenopathy, supple and no JVD General: Negative for tenderness Chest Wall inspection of chest normal and palpation of chest normal Chest: Negative for tenderness Resp normal respiratory effort and clear to auscultation bilaterally Effort and Inspection: Negative for respiratory distress or pain with movement Auscultation: Negative for rhonchi, wheezes or diminished lung sounds Cardio regular rate, regular rhythm, S1 normal heart sound, S2 normal heart sound and no murmurs Peripheral Pulses: pulses 2+ throughout GI normal to inspection, nondistended, normoactive bowel sounds, soft to palpation, non-tender, non-distended and no masses Back/Spine no CVA tenderness and no thoracic nor lumbar tenderness Extremity normal to inspection Extremity Narrative: Patient has diffuse erythema of the left lower extremity. She has multiple excoriated areas and weeping areas. Neurovascularly intact. Patient also with some faint erythema to the right lower extremity. General Extremety ED: Negative for edema General Extremity: Negative for edema Neuro oriented x3, CN's II-XII intact bilaterally, no sensory deficits noted and gait normal Sensorium / Orientation: awake, alert, oriented to person, oriented to place and oriented to time Motor Exam: strength 5/5 throughout and strength abnormal Psych mental status grossly normal Skin no rashes or lesions noted and no wounds MDM MDM MDM Narrative Medical decision making narrative: IV line established on arrival. Patient was started on vancomycin IV. Case discussed with hospitalist will evaluate patient for admission for cellulitis of left lower extremity with failed outpatient therapy Lab Data Attestation: I reviewed the patient's lab results. Labs: Laboratory Results - last 24 hr 12/19/20 12/19/20 12/19/20 23:27 23:27 23:27 WBC 11.5 H RBC 3.32 L Hgb 7.9 L Hct 28.1 L MCV 84.6 MCH 23.8 L MCHC 28.1 L RDW Std Deviation 55.6 H RDW Coeff of Fanny 18.4 H Plt Count 518 H MPV 9.3 Immature Gran % (Auto) 2.200 H Neut % (Auto) 76.6 H Lymph % (Auto) 10.6 L Eaton % (Auto) 8.8 Eos % (Auto) 1.4 Baso % (Auto) 0.4 Absolute Neuts (auto) 8.8 H Absolute Lymphs (auto) 1.22 Nucleated RBC % 0 Sodium 135 L Potassium 4.1 Chloride 93 L Carbon Dioxide 39.0 H Anion Gap 3 L BUN 8 Creatinine 0.69 Estim Creat Clear Calc 98.42 Est GFR (MDRD) Af Amer 120 Est GFR (MDRD) Non-Af 99 BUN/Creatinine Ratio 11.6 Glucose 107 H Lactic Acid 1.3 Calcium 8.8 Discharge Plan Triage Chief Complaint: Cellulitis ED Provider: Solitario Cho Dx/Rx/DC Orders Clinical Impression: Cellulitis of left leg Prescriptions: No Action duloxetine 20 mg Capsule, Delayed Rel Sprinkle 20 mg PO BID RF: 0 furosemide 40 mg Tablet 40 mg PO DAILY RF: 0 gabapentin 300 mg Capsule 300 mg PO TID PRN (Reason: muscle spasms) RF: 0 montelukast 10 mg Tablet 10 mg PO BID RF: 0 ciclesonide 80 mcg/actuation Hfa Aerosol Inhaler 1 puff INHALATION BID RF: 0 albuterol sulfate 90 mcg/actuation Aerosol Powdr Breath Activated 1 inh INHALATION Q6H PRN (Reason: Wheezing) RF: 0 acetaminophen 650 mg Tablet Extended Release 1,300 mg PO Q12H RF: 0 ibuprofen 200 mg Tablet 400 mg PO DAILY PRN (Reason: Pain) RF: 0 Osteo Bi-Flex Triple Strength 750 mg-644 mg- 30 mg-1 mg Tablet 2 tab PO DAILY RF: 0 elderberry fruit 200 mg Capsule 200 mg PO DAILY RF: 0 doxycycline hyclate 100 mg capsule 100 mg PO BID Qty: 10 RF: 0 mupirocin 2 % ointment 1 applic TOPICAL DAILY RF: 0 Primary Care Provider: Mireille Dietz Referrals: Mireille Dietz MD [Primary Care Provider] - Disposition Disposition: [facility]
[2020-12-19 23:43] LABS: Absolute Lymphocyte Count 1.22 X10^3/uL (0.83-4.51); Absolute Neutrophil Count 8.8 X10^3/uL (2.0-7.7); Basophil# 0.05 X10^3/uL; Basophil% 0.4 % (0-1); Eosinophil# 0.16 X10^3/uL; Eosinophils% 1.4 % (0-5); Hematocrit 28.1 % (37-47); Hemoglobin 7.9 g/dL (12.0-15.0); Lymphocyte # 1.22 X10^3/ul (0.83-4.51); Lymphocyte % 10.6 % (19-41); Mean Corp Hgb Conc 28.1 g/dL (32-36); Mean Corpuscular Hgb 23.8 pg (27.0-32.0); Mean Corpuscular Volume 84.6 fL (81-99); Mean Platelet Vol. 9.3 fl (6.2-12.0); Monocyte# 1.01 X10^3/uL; Monocyte% 8.8 % (0-10); NRBC Flagged by Analyzer 0 % (0-5); Neutrophil % 76.6 % (47-70); Platelet Count 518 K/mm3 (150-450); RBC Distribution Width CV 18.4 % (11.6-14.6); RBC Distribution Width SD 55.6 fl (35.1-43.9); Red Blood Count 3.32 M/mm3 (4.2-5.4); White Blood Count 11.5 K/mm3 (4.4-11.0)
[2020-12-19] MEDS: Ondansetron 4 MG/2 ML Vial IV (23:56)
[2020-12-19] MEDS: 0.9% Normal Saline 1,000 ML 150 ML IV (23:56)
[2020-12-19] MEDS: HYDROmorphone 0.5 MG/0.5 ML SYRINGE IV (23:57)
[2020-12-20] VITALS (8 sets, daily range): BP systolic 105–144; BP diastolic 54–83; PULSE 112–125; RESP 16–22; TEMP 36.5–37.3; O2SAT 96–100; BMI 73.7
[2020-12-20] LABS: Anion Gap 3 (5-15); BUN 8 mg/dL (7-18); BUN/Creat Ratio 11.6 RATIO (10-20); Calcium,Total 8.8 mg/dL (8.5-10.1); Chloride 93 mmol/L (98-107); Creatinine, Serum 0.69 mg/dL (0.55-1.02); EST Glomerular Filtration Rate 99 mL/min (>60); Est Glom Filt Rate - Afr Amer 120 mL/min (>60); Estimated Creatinine Clearance 98.42 ml/min; Glucose 107 mg/dL (74-106); Potassium 4.1 mmol/L (3.5-5.1); Sodium Level 135 mmol/L (136-145)
[2020-12-20 00:06] LABS: Lactic Acid 1.3 mmol/L (0.4-1.9)
--- NOTE | 2020-12-20 00:22 | HP.PCM_ITS ---
Documented by User: DELMY Horvath 12/20/20 00:57 HPI - General General Date of Admission: 12/20/20 Date of Service: 12/20/20 Chief Complaint: Worsening Cellulitis HPI Narrative HELGA JENSEN, is a 44 F who presents with complaints of increased redness and swelling to her lower extremities. Patient was discharged approximately 10 days ago with doxycycline for same complaint. Patient reports that her legs are oozing NCP and that she has had a low-grade temperature of 99. Patient denies chills, shortness of breath, chest pain, nausea, vomiting, diarrhea, constipation. Patient does have a history of lymphedema. COUNTS INCLUDE 234 BEDS AT THE [facility] Medical History Anemia Asthma BMI 70 and over, adult Cancer Chronic pain Crohn disease DVT (deep venous thrombosis) Carole-Danlos syndrome GERD (gastroesophageal reflux disease) Hearing loss, left Hearing loss, right Irregular heart beat Kidney disease Kidney stones Lumbar spondylosis Lymphedema Migraines Morbid obesity Non-smoker Obesity On home oxygen therapy Renal atrophy Rheumatoid arthritis Splenomegaly T-cell lymphoma Home Medications Osteo Bi-Flex Triple Strength 2 tab PO DAILY 10/02/20 [History Last Taken 12/19/20] acetaminophen 1,300 mg PO Q12H 10/02/20 [History Last Taken 12/19/20] albuterol sulfate 1 inh INHALATION Q6H PRN 10/02/20 [History Last Taken 12/19/20] ciclesonide 1 puff INHALATION BID 10/02/20 [History Last Taken 12/19/20] duloxetine 20 mg PO BID 10/02/20 [History Last Taken 12/19/20] furosemide 40 mg PO DAILY 10/02/20 [History Last Taken 12/19/20] gabapentin 300 mg PO TID PRN 10/02/20 [History Last Taken 12/18/20] ibuprofen 400 mg PO DAILY PRN 10/02/20 [History Last Taken 12/05/20 22:00] montelukast 10 mg PO BID 10/02/20 [History Last Taken 12/19/20] elderberry fruit 200 mg PO DAILY 12/05/20 [History Last Taken 12/19/20] doxycycline hyclate 100 mg PO BID #10 cap 12/08/20 [Rx Last Taken 12/19/20] mupirocin 1 applic TOPICAL DAILY 12/19/20 [History Last Taken 12/19/20] Allergy/AdvReac Type Severity Reaction Status Date / Time Nitrate Analogues Allergy Unknown throat/nose Verified 12/19/20 22:45 swelling adhesive tape Allergy Rash Verified 12/19/20 22:45 aspirin Allergy Angioedema Verified 12/19/20 22:45 benzonatate Allergy Shortness Verified 12/19/20 22:45 of breath cephalexin Allergy Rash Verified 12/19/20 22:45 coconut oil Allergy throat Verified 12/19/20 22:45 swells copper Allergy skin peels Verified 12/19/20 22:45 formaldehyde Allergy Anaphylaxis Verified 12/19/20 22:45 Iodine and Iodide Containing Allergy Anaphylaxis Verified 12/19/20 22:45 Produc latex Allergy Anaphylaxis Verified 12/19/20 22:45 mold Allergy Anaphylaxis Verified 12/19/20 22:45 nickel Allergy Rash Verified 12/19/20 22:45 nitrofurantoin Allergy Anaphylaxis Verified 12/19/20 22:45 palm oil Allergy Hives Verified 12/19/20 22:45 Penicillins Allergy Rash Verified 12/19/20 22:45 soy Allergy Diarrhea Verified 12/19/20 22:45 Sulfa (Sulfonamide Allergy Rash Verified 12/19/20 22:45 Antibiotics) topiramate Allergy goes Verified 12/19/20 22:45 crazy aspartame AdvReac kidneyfailu Verified 12/19/20 22:45 re lactose AdvReac Nausea Verified 12/19/20 22:45 morphine AdvReac confusion Verified 12/19/20 22:45 eggs Allergy Rash Uncoded 12/19/20 22:45 gold Allergy Rash Uncoded 12/19/20 22:45 metals AdvReac Rash Uncoded 12/19/20 22:45 Family History Father Heart disease Mother Diabetes Surgical History History of partial hysterectomy Hx of pelvic surgery Previous section Social History household members: children Smoking Status: Never smoker alcohol intake: current alcohol intake frequency: holidays/special occasions only substance use type: does not use ROS Constitutional Constitutional: Reports chills; Denies anorexia, fatigue, fever(s), malaise or weakness Cardiovascular Cardiovascular: Reports edema; Denies chest pain or palpitations Respiratory/Chest Respiratory/Chest: Denies cough, shortness of breath at rest or shortness of breath with exertion Gastrointestinal Gastrointestinal: Denies abdominal pain, constipation, diarrhea, nausea or vomiting Genitourinary Genitourinary: Denies dysuria Musculoskeletal Musculoskeletal: Denies back pain, extremity pain, joint pain or joint stiffness Integumentary Integumentary: Reports rash; Denies dry skin Neurologic Neurologic: Denies abnormal gait, abnormal speech, confusion or dizziness Psychiatric Psychiatric: Denies anxiety or depression Endocrine Endocrinology: Denies change in body appearance Hematologic/Lymphatic Hematologic/Lymphatic: Denies anemia, easy bleeding or easy bruising Vital Signs Vital Signs Vital Signs: 12/19/20 22:45 Temperature 98.6 F Temperature Source Temporal Pulse Rate 114 H Respiratory Rate 20 H Blood Pressure 116/60 Blood Pressure Mean 78 Pulse Ox 100 Oxygen Delivery Method Room Air Weight Weight: 457 lb 0.292 oz Body Mass Index (BMI) 73.7 Physical Exam Const alert, oriented x3 and no apparent distress General Appearance: cooperative HEENT normocephalic and head/scalp atraumatic Eyes conjunctivae normal and no scleral icterus Resp normal respiratory effort and normal air movement Effort and Inspection: tachypneic Auscultation: diminished lung sounds Cardio regular rhythm, S1 normal heart sound, S2 normal heart sound and peripheral pulses 2+ throughout Rate: tachycardic GI normal to inspection, nondistended, normoactive bowel sounds, soft to palpation and non-tender Extremity normal capillary refill General Extremity: edema bilateral lower extremity Details: severe and no tenderness to palpation of joints or extremities Skin Skin Narrative: Left leg red, warm, swollen, multiple open areas noted. General Skin Exam: turgor normal Neuro no focal motor deficits and no sensory deficits noted Speech: speech normal Motor Exam: Negative for general weakness Psych thought process normal, cooperative and affect normal Appearance: appropriate Results Lab / Micro Data Result Diagrams: 12/19/20 23:27 12/19/20 23:27 Labs: Laboratory Results - last 24 hr 12/19/20 23:27: WBC 11.5 H, RBC 3.32 L, Hgb 7.9 L, Hct 28.1 L, MCV 84.6, MCH 23.8 L, MCHC 28.1 L, RDW Std Deviation 55.6 H, RDW Coeff of Fanny 18.4 H, Plt Count 518 H, MPV 9.3, Immature Gran % (Auto) 2.200 H, Neut % (Auto) 76.6 H, Lymph % (Auto) 10.6 L, Ray % (Auto) 8.8, Eos % (Auto) 1.4, Baso % (Auto) 0.4, Absolute Neuts (auto) 8.8 H, Absolute Lymphs (auto) 1.22, Nucleated RBC % 0 12/19/20 23:27: Sodium 135 L, Potassium 4.1, Chloride 93 L, Carbon Dioxide 39.0 H, Anion Gap 3 L, BUN 8, Creatinine 0.69, Estim Creat Clear Calc 98.42, Est GFR (MDRD) Af Amer 120, Est GFR (MDRD) Non-Af 99, BUN/Creatinine Ratio 11.6, Glucose 107 H, Calcium 8.8 12/19/20 23:27: Lactic Acid 1.3 Assessment & Plan Assessment/Plan (1) Cellulitis of left leg: PLAN: 1. Cellulitis of left lower leg -Admit to [facility], patient positive SIRS criteria with tachycardia, tachypnea, elevated white blood cell count -Patient received vancomycin in the ER, will continue along with IV Merrem. Patient failed outpatient therapy on doxycycline -Blood cultures pending -CBC, CMP, magnesium, phosphorus, TSH ordered in a.m. -PT and OT to eval and treat -Consult case management for discharge planning due to recurrent nonhealing cellulitis -Josemanuel wraps to bilateral lower extremities -Elevate bilateral lower extremities -Consult infectious disease due to recurrent actions -Consult wound nurse -Wound and MRSA cultures ordered. 2. Anemia -Patient chronically anemic however hemoglobin upon presentation today 7.9 which is below patient baseline of 10. -CBC ordered for a.m. We will continue patient's home medication regimen for chronic diseases including COPD, DVT prophylaxis-subcu Lovenox This patient was seen by WENDY HorvathC under the supervision of Dr. Kirk. Documented by User: Dr. Sherrie Kirk DO 12/20/20 02:07 HPI - General General Date of Admission: 12/20/20 Date of Service: 12/20/20 Chief Complaint: Bilateral lower extremity cellulitis left greater than right HPI Narrative This patient was seen in conjunction with Christina Norman NP. The following represents my independent history and physical examination. Please see below for any addendum the above. Ms. Bucio is a 44-year-old white female who has multiple hospital admissions for cellulitis and presents to the emergency department [facility] on 12/19/2020 with recurrent bilateral lower extremity cellulitis left greater than right. She has a recent hospitalization here from 12/05/2020 until 12/08/2020 at which time she was discharged on oral doxycycline. During that course she was seen by Dr. Villarreal from infectious disease and those were the recommended antibiotics for her to be discharged on. She states that she had been doing well up until approximately 3 days after discharge when she had recurrence of left lower extremity erythema and that the skin started to slough off on the left leg. She followed up with her PCP and they increase the doxycycline dose to 300 mg 3 times daily but her skin continued to worsen. She followed up with an CAR WASH SUPERVISOR today at her primary care physician's office who referred her to the hospital for admission and IV antibiotics. On presentation she complained of some low-grade temperatures at home in the 99 range but denied chills or sweats and reported that her left lower extremity had increased seeping and redness. There are no previous cultures from her wounds upon review of previous data. She was treated with IV antibiotics in the emergency department. Her CBC shows a leukocytosis which is actually trended down since her most recent lab work on 12/08/2020, a chronic normocytic anemia, and a new thrombocytosis which is likely related to infection. She has mild hyponatremia and hyperchloremia. Her renal functions within normal limits and her lactic acid is within normal limits at 1.3. COUNTS INCLUDE 234 BEDS AT THE [facility] Medical History Anemia Asthma BMI 70 and over, adult Cancer Chronic pain Crohn disease DVT (deep venous thrombosis) Carole-Danlos syndrome GERD (gastroesophageal reflux disease) Hearing loss, left Hearing loss, right Irregular heart beat Kidney disease Kidney stones Lumbar spondylosis Lymphedema Migraines Morbid obesity Non-smoker Obesity On home oxygen therapy Renal atrophy Rheumatoid arthritis Splenomegaly T-cell lymphoma Home Medications Osteo Bi-Flex Triple Strength 2 tab PO DAILY 10/02/20 [History Last Taken 12/19/20] acetaminophen 1,300 mg PO Q12H 10/02/20 [History Last Taken 12/19/20] albuterol sulfate 1 inh INHALATION Q6H PRN 10/02/20 [History Last Taken 12/19/20] ciclesonide 1 puff INHALATION BID 10/02/20 [History Last Taken 12/19/20] duloxetine 20 mg PO BID 10/02/20 [History Last Taken 12/19/20] furosemide 40 mg PO DAILY 10/02/20 [History Last Taken 12/19/20] gabapentin 300 mg PO TID PRN 10/02/20 [History Last Taken 12/18/20] ibuprofen 400 mg PO DAILY PRN 10/02/20 [History Last Taken 12/05/20 22:00] montelukast 10 mg PO BID 10/02/20 [History Last Taken 12/19/20] elderberry fruit 200 mg PO DAILY 12/05/20 [History Last Taken 12/19/20] doxycycline hyclate 100 mg PO BID #10 cap 12/08/20 [Rx Last Taken 12/19/20] mupirocin 1 applic TOPICAL DAILY 12/19/20 [History Last Taken 12/19/20] Allergy/AdvReac Type Severity Reaction Status Date / Time Nitrate Analogues Allergy Unknown throat/nose Verified 12/19/20 22:45 swelling adhesive tape Allergy Rash Verified 12/19/20 22:45 aspirin Allergy Angioedema Verified 12/19/20 22:45 benzonatate Allergy Shortness Verified 12/19/20 22:45 of breath cephalexin Allergy Rash Verified 12/19/20 22:45 coconut oil Allergy throat Verified 12/19/20 22:45 swells copper Allergy skin peels Verified 12/19/20 22:45 formaldehyde Allergy Anaphylaxis Verified 12/19/20 22:45 Iodine and Iodide Containing Allergy Anaphylaxis Verified 12/19/20 22:45 Produc latex Allergy Anaphylaxis Verified 12/19/20 22:45 mold Allergy Anaphylaxis Verified 12/19/20 22:45 nickel Allergy Rash Verified 12/19/20 22:45 nitrofurantoin Allergy Anaphylaxis Verified 12/19/20 22:45 palm oil Allergy Hives Verified 12/19/20 22:45 Penicillins Allergy Rash Verified 12/19/20 22:45 soy Allergy Diarrhea Verified 12/19/20 22:45 Sulfa (Sulfonamide Allergy Rash Verified 12/19/20 22:45 Antibiotics) topiramate Allergy goes Verified 12/19/20 22:45 crazy aspartame AdvReac kidneyfailu Verified 12/19/20 22:45 re lactose AdvReac Nausea Verified 12/19/20 22:45 morphine AdvReac confusion Verified 12/19/20 22:45 eggs Allergy Rash Uncoded 12/19/20 22:45 gold Allergy Rash Uncoded 12/19/20 22:45 metals AdvReac Rash Uncoded 12/19/20 22:45 Family History Father Heart disease Mother Diabetes Surgical History History of partial hysterectomy Hx of pelvic surgery Previous section Social History household members: children Smoking Status: Never smoker alcohol intake: current alcohol intake frequency: holidays/special occasions only substance use type: does not use ROS Constitutional Constitutional: Reports fever(s); Denies anorexia, change in weight, chills, fatigue, malaise, night sweats, weakness, weight gain or weight loss Eyes Eyes: Denies blurry vision, change in vision, discharge from eye(s), double vision, erythema, eye pain, irritation or itchy eyes ENT HEENT: Denies abnormal hearing, dysphagia, ear pain, epistaxis, headache(s), h earing loss, loss taste/smell, nasal congestion, nasal discharge, post nasal drip, sinus pain, sinus pressure, sore throat or throat swelling Cardiovascular Cardiovascular: Denies chest pain, claudication, edema, orthopnea, palpitations, paroxysmal nocturnal dyspnea or syncope Respiratory/Chest Respiratory/Chest: Denies cough, hemoptysis, shortness of breath at rest, shortness of breath with exertion or wheezing Gastrointestinal Gastrointestinal: Denies abdominal pain, constipation, diarrhea, dyspepsia, hematemesis, hematochezia, melena, nausea or vomiting Genitourinary Genitourinary: Denies dysuria, hematuria, nocturia, oliguria, polyuria, urinary frequency, urinary hesitancy, urinary incontinence or urinary urgency Musculoskeletal Musculoskeletal: Denies back pain, extremity pain, joint pain, joint stiffness, joint swelling, limited range of motion, muscle weakness, neck pain or stiffness Integumentary Integumentary: Reports lesions, rash and wounds; Denies dry skin, jaundice or pruritus Neurologic Neurologic: Denies abnormal gait, abnormal speech, confusion, dizziness, focal weakness, headache(s), lack of coordination, numbness, seizures, sensory deficit, tingling, tremor(s) or weakness Psychiatric Psychiatric: Denies anxiety, depression, homicidal ideation or suicidal ideation Endocrine Endocrinology: Denies change in body appearance, cold intolerance, heat intolerance, polydipsia or polyuria Hematologic/Lymphatic Hematologic/Lymphatic: Denies anemia, easy bleeding, easy bruising or lymphadenopathy Physical Exam Const alert, oriented x3 and no apparent distress Constitutional Narrative: Super morbidly obese white middle-aged female lying in bed, appears comfortable, nontoxic General Appearance: cooperative HEENT normocephalic, head/scalp atraumatic and moist oral mucous membranes HEENT Narrative: Dentition is poor with missing teeth, no thrush, Mallampati 3 Eyes PERRL and EOMs intact bilaterally Eyes Narrative: No scleral icterus, conjunctiva mildly pale Neck no lymphadenopathy, supple, no JVD, thyroid normal and no carotid bruits Neck Narrative: Short thick neck General: trachea midline Cardio regular rhythm, S1 normal heart sound, S2 normal heart sound, no murmurs, no rub, no gallops and peripheral pulses 2+ throughout Cardio Narrative: Mild tachycardia GI normal to inspection, nondistended, normoactive bowel sounds, soft to palpation, non-tender and non-distended Extremity Extremity Narrative: Marked bilateral lower extremity edema that is pitting in nature 3-4+, no cyanosis or clubbing Skin Skin Narrative: Bilateral lower extremity wounds left greater than right from feet to proximal thighs, areas of macerated skin on the left posterior distal lower extremity with oozing of serous fluid and blood Lesions: lesion noted Wounds: wounds noted Neuro CN's II-XII intact bilaterally and no focal motor deficits Speech: speech normal Motor Exam: general weakness Psych thought process normal and affect normal Appearance: appropriate Results Lab / Micro Data Attestation: I reviewed the patient's lab results. Result Diagrams: 12/19/20 23:27 12/19/20 23:27 Assessment & Plan Assessment/Plan (1) Cellulitis of left leg: (2) Hypoxia: PLAN: Assessment: Bilateral lower extremity cellulitis left greater than right Chronic hypoxia secondary to recent COVID-19 infection Intermittent epistaxis Chronic anemia Chronic venous stasis Leukocytosis Thrombocytosis Hyponatremia Chronic hypercapnia Super morbid obesity Seasonal allergies Neuropathy Asthma Suspected OFELIA Suspected OHS Plan: Blood and wound cultures are pending MRSA PCR pending Start vancomycin and meropenem given penicillin and cephalosporin allergies--> patient has failed outpatient therapy Consult infectious disease Consult wound care Continue home chronic medications Wean oxygen as able Epistaxis is related to supplemental oxygen--> use humidified air and if continues consider [place] nasal spray Monitor CBC May need to consider placement at discharge Charges/Coding Visit Charges Inpatient E&M: 15702 Init Hosp L3
--- NOTE | 2020-12-20 01:58 | PCM.RX.CS ---
Consult Pharmacy has been consulted to manage selected antiobiotic: Vancomycin Type of Consult: New start Suspected Infection: Skin/Soft tissue Prior Doses of Antibiotics Received/Current Regimen: Medications Vancomycin HCl 1,500 mg/ (Sodium Chloride) 530 mls @ 250 mls/hr IV Q12H HERNÁN Discontinued Medications Vancomycin HCl 2,000 mg/ (Sodium Chloride) 540 mls @ 250 mls/hr IV X1 ONE Stop: 12/20/20 01:19 Last Admin: 12/19/20 23:48 Dose: 250 mls/hr Labs: Sodium 135 mmol/L (136-145) L 12/19/20 23:27 Potassium 4.1 mmol/L (3.5-5.1) 12/19/20 23:27 Chloride 93 mmol/L (98-107) L 12/19/20 23:27 Carbon Dioxide 39.0 mmol/L (21.0-32.0) H 12/19/20 23:27 Anion Gap 3 (5-15) L 12/19/20 23:27 BUN 8 mg/dL (7-18) 12/19/20 23:27 Creatinine 0.69 mg/dL (0.55-1.02) 12/19/20 23:27 Est GFR (MDRD) Af Amer 120 mL/min (>60) 12/19/20 23:27 Est GFR (MDRD) Non-Af 99 mL/min (>60) 12/19/20 23:27 BUN/Creatinine Ratio 11.6 RATIO (10-20) 12/19/20 23:27 Glucose 107 mg/dL (74-106) H 12/19/20 23:27 Weight used for dosin kg Estimated Creatinine Clearance: 98 Goal Trough: 10-15 mcg/mL Pharmacy Plan for Drug Dosing: Pharmacy Service will continue to monitor and adjust dosing as required. Follow-Up Labs: Trough Vancomycin Labs to be done on [date and time ordered]: 12/21/20 @1133
--- NOTE | 2020-12-20 02:05 | PCS.PANDOC ---
PANDEMIC DOCUMENTATION INITIATED: Date: 12/20/2020 Time: 9826
[2020-12-20 03:32] LABS: M R Staph aureus DNA By PCR Negative (Negative); Probe Check PASS; Specimen Processing Control PASS; Staph aureus DNA By PCR POSITIVE (Negative)
[2020-12-20] MEDS: Budesonide Respules 0.5 MG/2 ML AMPUL.NEB. INHALATION (06:47)
[2020-12-20] MEDS: Albuterol 2.5 MG/3 ML VIAL.NEB. INHALATION (06:50)
[2020-12-20] MEDS: Acetaminophen 325 MG Tablet 650 MG PO ×2 (07:34→14:26)
[2020-12-20 07:46] LABS: Absolute Lymphocyte Count 1.07 X10^3/uL (0.83-4.51); Absolute Neutrophil Count 9.5 X10^3/uL (2.0-7.7); Basophil# 0.03 X10^3/uL; Basophil% 0.3 % (0-1); Eosinophil# 0.15 X10^3/uL; Eosinophils% 1.3 % (0-5); Hematocrit 28.1 % (37-47); Hemoglobin 7.9 g/dL (12.0-15.0); Lymphocyte # 1.07 X10^3/ul (0.83-4.51); Lymphocyte % 9.3 % (19-41); Mean Corp Hgb Conc 28.1 g/dL (32-36); Mean Corpuscular Hgb 23.8 pg (27.0-32.0); Mean Corpuscular Volume 84.6 fL (81-99); Mean Platelet Vol. 9.2 fl (6.2-12.0); Monocyte# 0.64 X10^3/uL; Monocyte% 5.6 % (0-10); NRBC Flagged by Analyzer 0 % (0-5); Neutrophil # 9.51 X10^3/uL (2.7-7.7); Neutrophil % 82.9 % (47-70); Platelet Count 548 K/mm3 (150-450); RBC Distribution Width CV 18.4 % (11.6-14.6); Red Blood Count 3.32 M/mm3 (4.2-5.4); White Blood Count 11.5 K/mm3 (4.4-11.0)
[2020-12-20] MEDS: HYDROmorphone 1 MG/ML Syringe IV ×2 (08:13→16:29)
[2020-12-20] MEDS: 0.9% Saline Lock 10 ML Syringe IV ×3 (08:17→22:37)
[2020-12-20 08:41] LABS: ALB/GLOB Ratio 0.3 RATIO (0.9-2.4); AST(SGOT) 13 U/L (15-37); Alanine Aminotransfer ALT/SGPT 8 U/L (13-56); Albumin, Serum 1.8 g/dL (3.2-5.0); Alkaline Phosphatase 104 U/L (45-117); Anion Gap 6 (5-15); BUN 8 mg/dL (7-18); BUN/Creat Ratio 11.6 RATIO (10-20); Calcium,Total 8.8 mg/dL (8.5-10.1); Chloride 93 mmol/L (98-107); Creatinine, Serum 0.69 mg/dL (0.55-1.02); EST Glomerular Filtration Rate 99 mL/min (>60); Est Glom Filt Rate - Afr Amer 120 mL/min (>60); Estimated Creatinine Clearance 98.42 ml/min; Globulin 6.4 g/dL (2.2-4.2); Glucose 103 mg/dL (74-106); Phosphorus 3.5 mg/dL (2.5-4.9); Protein, Total 8.2 g/dL (6.4-8.2); Sodium Level 135 mmol/L (136-145); Thyroid Stim Hormone (TSH) 2.21 uIU/mL (0.358-3.74)
[2020-12-20] MEDS: Montelukast 10 MG Tablet PO ×2 (09:02→22:27)
[2020-12-20] MEDS: Furosemide 40 MG Tablet PO (09:02)
[2020-12-20] MEDS: Enoxaparin 40 MG/0.4 ML Syringe SC ×2 (09:03→22:28)
[2020-12-20] MEDS: DULoxetine Hcl 20 MG Capsule PO ×2 (09:03→22:27)
--- NOTE | 2020-12-20 10:02 | WOUNDNOTE ---
skin photo: right lower leg
--- NOTE | 2020-12-20 10:02 | WOUNDNOTE ---
wound photo: left lower leg
--- NOTE | 2020-12-20 10:03 | WOUNDNOTE ---
wound photo: left leg
--- NOTE | 2020-12-20 10:04 | WOUNDNOTE ---
wound photo: left lower leg
--- NOTE | 2020-12-20 10:22 | CASEMGMT ---
Social Work Note Per road mender questions, pt has completed HCPOA and LW, hasn't provided copies to [facility] and pt unable to bring in copies. Jyotsna Bond NUCLEAR PHYSICS TEACHER, MIDDLE SCHOOL SCIENCE TEACHER
--- NOTE | 2020-12-20 11:57 | PN.HOSP_ITS ---
Subjective Subjective Patient seen and examined. She was admitted with a complaint of recurrent cellulitis of her lower extremities. She complains of pain in her thighs today. She denies any fever or chills, but admits to pain in her LEs over the cellulitic areas. REview of systems is otherwise negative. Objective Data Objective Data Vital Signs: Vital Signs Temp Pulse Resp BP Pulse Ox 97.7 F L 125 H 16 123/68 H 98 12/20/20 11:07 12/20/20 11:07 12/20/20 11:07 12/20/20 11:07 12/20/20 11:07 Oxygen Flow Rate (L/min) 3 Oxygen Delivery Method Nasal Cannula Weight: 457 lb Body Mass Index (BMI) 73.7 Intake & Output: Intake and Output for Last 24 Hours 12/18/20 12/19/20 12/20/20 23:59 23:59 23:59 Intake Total 1432.5 / 1432.5 Balance 1432.5 / 1432.5 Lab / Micro Data Result Diagrams: 12/20/20 06:52 12/20/20 06:52 Labs: Laboratory Results - last 24 hr 12/19/20 23:27: WBC 11.5 H, RBC 3.32 L, Hgb 7.9 L, Hct 28.1 L, MCV 84.6, MCH 23.8 L, MCHC 28.1 L, RDW Std Deviation 55.6 H, RDW Coeff of Fanny 18.4 H, Plt Count 518 H, MPV 9.3, Immature Gran % (Auto) 2.200 H, Neut % (Auto) 76.6 H, Lymph % (Auto) 10.6 L, [place] % (Auto) 8.8, Eos % (Auto) 1.4, Baso % (Auto) 0.4, Absolute Neuts (auto) 8.8 H, Absolute Lymphs (auto) 1.22, Nucleated RBC % 0 12/19/20 23:27: Sodium 135 L, Potassium 4.1, Chloride 93 L, Carbon Dioxide 39.0 H, Anion Gap 3 L, BUN 8, Creatinine 0.69, Estim Creat Clear Calc 98.42, Est GFR (MDRD) Af Amer 120, Est GFR (MDRD) Non-Af 99, BUN/Creatinine Ratio 11.6, Glucose 107 H, Calcium 8.8 12/19/20 23:27: Lactic Acid 1.3 12/20/20 01:35: S.aureus Protein A PCR POSITIVE H, MRSA (PCR) Negative 12/20/20 01:35: MRSA (PCR) Negative 12/20/20 06:52: WBC 11.5 H, RBC 3.32 L, Hgb 7.9 L, Hct 28.1 L, MCV 84.6, MCH 23.8 L, MCHC 28.1 L, RDW Std Deviation 56.0 H, RDW Coeff of Fanny 18.4 H, Plt Count 548 H, MPV 9.2, Immature Gran % (Auto) 0.600, Neut % (Auto) 82.9 H, Lymph % (Auto) 9.3 L, [place] % (Auto) 5.6, Eos % (Auto) 1.3, Baso % (Auto) 0.3, Absolute Neuts (auto) 9.5 H, Absolute Lymphs (auto) 1.07, Nucleated RBC % 0 12/20/20 06:52: Sodium 135 L, Potassium 4.0, Chloride 93 L, Carbon Dioxide 36.0 H, Anion Gap 6, BUN 8, Creatinine 0.69, Estim Creat Clear Calc 98.42, Est GFR (MDRD) Af Amer 120, Est GFR (MDRD) Non-Af 99, BUN/Creatinine Ratio 11.6, Glucose 103, Calcium 8.8, Phosphorus 3.5, Magnesium 2.0, Total Bilirubin 0.30, AST 13 L, ALT 8 L, Alkaline Phosphatase 104, Total Protein 8.2, Albumin 1.8 L, Globulin 6.4 H, Albumin/Globulin Ratio 0.3 L, TSH 2.21 Physical Exam Const alert, oriented x3 and no apparent distress Constitutional Narrative: super morbid obesity Exam Limitations: no limitations HEENT head/scalp atraumatic, moist oral mucous membranes and oropharynx normal Head and Scalp: normocephalic Eyes EOMs intact bilaterally and conjunctivae normal Neck no lymphadenopathy Resp normal respiratory effort, no retractions, no use of accessory muscles and clear to auscultation bilaterally Cardio regular rate, regular rhythm, S1 normal heart sound, S2 normal heart sound and no murmurs GI normal to inspection, nondistended, normoactive bowel sounds, soft to palpation, non-tender and non-distended Extremity normal to inspection and full ROM Skin Skin Narrative: has erythematous, edematous areas over lower extremities, mainly over her thighs; with a pustular rash. Mildly tender to touch. Neuro oriented x3 and CN's II-XII intact bilaterally Sensorium / Orientation: awake and alert Psych affect normal Assessment & Plan Assessment/Plan (1) Cellulitis of left leg: PLAN: #Cellulitis of the LLE * cellulitis is recurrent * she was recently admitted for the same and discharged home on oral doxy cycline. Symptoms however still persisted so she came in. * on IV vancomycin and meropenem * wound care on board * ID consulted * wound and MRSA cultures pending. * #Chronic anemia * Hb is 8.9; her baseline is ~ 8-10. Will monitor * #COPD: on breathing treatment with bronchodilators #Super morbid obesity: BMI is 73.8. THis affects expected recovery and prognosis. DVT prophylaxis; lovenox Charges/Coding Visit Charges Inpatient E&M: 38562 Subs Hosp L2
--- NOTE | 2020-12-20 15:02 | CASEMGMT ---
JAN VÁZQUEZ Readmission Note Previous Admission: 12/06/20-12/08/20 Diagnosis: leg cellulitis DC Disposition: Home with outpt PT Current Admission Diagnosis: Cellulitis L leg Pt presented to ER from home with increased swelling, redness and oozing of leg wounds. Pt was recently dc'd on oral doxycyline on prior admission. Pt reports that she had follow up with the TRAVELIFT OPERATOR Samson Grimes who increased the dose of doxy. She states she has been taking her medications as ordered. She had one PT session and then the next one, the appt was lost and she has not felt well enough to return. Pt states she then had a video appt with the TRAVELIFT OPERATOR and was sent to the ER. Pt states since her last admission her dtr's fiance has moved in. He is of great support and does alot of the driving for the family. She states her family has been assisting with the wound care. She states she is only alone for 2 hours per week. She has been wearing her O2 as ordered but states she does not like that is is not constantly giving her O2 when she uses the portable tanks. Pt feels that her family can provide any wound care that may be necessary and currently declines the need for HHC. DC PLAN: Home, will follow to see if pt needs HHC or follow at a wound center. Pt screened with the [facility] Palliative Care Screening Tool due to readmission, pt did not meet criteria.
--- NOTE | 2020-12-20 15:34 | CON.PCM.ID_ITS ---
Assessment & Plan Assessment/Plan (1) Cellulitis of left leg: PLAN: On vanc/rocio, improving. Cxs pending. Did get 1st dose covid shot here last admit. Will follow, thank you HPI Consult Data Date of Consult: 12/20/20 HPI Narrative HPI Narrative: HELGA JENSEN, is a 44 F with morbid obesity, recurrent cellulitis. Discharged here on po doxy 12/08. Completed abx, was doing ok, but legs with progressive swelling, pain, skin breakdown, and redness. No fever or chills. Had 1st dose covid vaccine prior to discharge, tolerated well but did report some hallucinations. Came to ED, admitted on vanc/meropenem, feeling a little better. Full ROS performed and neg except as noted above. [facility] Medical History Anemia Asthma BMI 70 and over, adult Cancer Chronic pain Crohn disease DVT (deep venous thrombosis) Carole-Danlos syndrome GERD (gastroesophageal reflux disease) Hearing loss, left Hearing loss, right Irregular heart beat Kidney disease Kidney stones Lumbar spondylosis Lymphedema Migraines Morbid obesity Non-smoker Obesity On home oxygen therapy Renal atrophy Rheumatoid arthritis Splenomegaly T-cell lymphoma Home Medications Osteo Bi-Flex Triple Strength 2 tab PO DAILY 10/02/20 [History Last Taken 12/19/20] acetaminophen 1,300 mg PO Q12H 10/02/20 [History Last Taken 12/19/20] albuterol sulfate 1 inh INHALATION Q6H PRN 10/02/20 [History Last Taken 12/19/20] ciclesonide 1 puff INHALATION BID 10/02/20 [History Last Taken 12/19/20] duloxetine 20 mg PO BID 10/02/20 [History Last Taken 12/19/20] furosemide 40 mg PO DAILY 10/02/20 [History Last Taken 12/19/20] gabapentin 300 mg PO TID PRN 10/02/20 [History Last Taken 12/18/20] ibuprofen 400 mg PO DAILY PRN 10/02/20 [History Last Taken 12/05/20 22:00] montelukast 10 mg PO BID 10/02/20 [History Last Taken 12/19/20] elderberry fruit 200 mg PO DAILY 12/05/20 [History Last Taken 12/19/20] doxycycline hyclate 100 mg PO BID #10 cap 12/08/20 [Rx Last Taken 12/19/20] mupirocin 1 applic TOPICAL DAILY 12/19/20 [History Last Taken 12/19/20] Allergy/AdvReac Type Severity Reaction Status Date / Time Nitrate Analogues Allergy Unknown throat/nose Verified 12/19/20 22:45 swelling adhesive tape Allergy Rash Verified 12/19/20 22:45 aspirin Allergy Angioedema Verified 12/19/20 22:45 benzonatate Allergy Shortness Verified 12/19/20 22:45 of breath cephalexin Allergy Rash Verified 12/19/20 22:45 coconut oil Allergy throat Verified 12/19/20 22:45 swells copper Allergy skin peels Verified 12/19/20 22:45 formaldehyde Allergy Anaphylaxis Verified 12/19/20 22:45 Iodine and Iodide Containing Allergy Anaphylaxis Verified 12/19/20 22:45 Produc latex Allergy Anaphylaxis Verified 12/19/20 22:45 mold Allergy Anaphylaxis Verified 12/19/20 22:45 nickel Allergy Rash Verified 12/19/20 22:45 nitrofurantoin Allergy Anaphylaxis Verified 12/19/20 22:45 palm oil Allergy Hives Verified 12/19/20 22:45 Penicillins Allergy Rash Verified 12/19/20 22:45 soy Allergy Diarrhea Verified 12/19/20 22:45 Sulfa (Sulfonamide Allergy Rash Verified 12/19/20 22:45 Antibiotics) topiramate Allergy goes Verified 12/19/20 22:45 crazy aspartame AdvReac kidneyfailu Verified 12/19/20 22:45 re lactose AdvReac Nausea Verified 12/19/20 22:45 morphine AdvReac confusion Verified 12/19/20 22:45 eggs Allergy Rash Uncoded 12/19/20 22:45 gold Allergy Rash Uncoded 12/19/20 22:45 metals AdvReac Rash Uncoded 12/19/20 22:45 Family History Father Heart disease Mother Diabetes Surgical History History of partial hysterectomy Hx of pelvic surgery Previous section Social History household members: children Smoking Status: Never smoker alcohol intake: current alcohol intake frequency: holidays/special occasions only substance use type: does not use Physical Exam Const alert and oriented x3 General Appearance: cooperative Exam Limitations: no limitations HEENT normocephalic and head/scalp atraumatic Eyes PERRL and EOMs intact bilaterally Neck supple and No nodes Resp normal air movement and clear to auscultation bilaterally Cardio regular rate and regular rhythm GI normal to inspection, nondistended, normoactive bowel sounds Extremity General Extremity: edema Skin Skin Narrative: reviewed photos Neuro CN's II-XII intact bilaterally Lab / Micro Data Result Diagrams: 12/20/20 06:52 12/20/20 06:52 Labs: Laboratory Results - last 24 hr 12/19/20 23:27: WBC 11.5 H, RBC 3.32 L, Hgb 7.9 L, Hct 28.1 L, MCV 84.6, MCH 23.8 L, MCHC 28.1 L, RDW Std Deviation 55.6 H, RDW Coeff of Fanny 18.4 H, Plt Count 518 H, MPV 9.3, Immature Gran % (Auto) 2.200 H, Neut % (Auto) 76.6 H, Lymph % (Auto) 10.6 L, [place] % (Auto) 8.8, Eos % (Auto) 1.4, Baso % (Auto) 0.4, Absolute Neuts (auto) 8.8 H, Absolute Lymphs (auto) 1.22, Nucleated RBC % 0 12/19/20 23:27: Sodium 135 L, Potassium 4.1, Chloride 93 L, Carbon Dioxide 39.0 H, Anion Gap 3 L, BUN 8, Creatinine 0.69, Estim Creat Clear Calc 98.42, Est GFR (MDRD) Af Amer 120, Est GFR (MDRD) Non-Af 99, BUN/Creatinine Ratio 11.6, Glucose 107 H, Calcium 8.8 12/19/20 23:27: Lactic Acid 1.3 12/20/20 01:35: S.aureus Protein A PCR POSITIVE H, MRSA (PCR) Negative 12/20/20 01:35: MRSA (PCR) Negative 12/20/20 06:52: WBC 11.5 H, RBC 3.32 L, Hgb 7.9 L, Hct 28.1 L, MCV 84.6, MCH 23.8 L, MCHC 28.1 L, RDW Std Deviation 56.0 H, RDW Coeff of Fanny 18.4 H, Plt Count 548 H, MPV 9.2, Immature Gran % (Auto) 0.600, Neut % (Auto) 82.9 H, Lymph % (Auto) 9.3 L, [place] % (Auto) 5.6, Eos % (Auto) 1.3, Baso % (Auto) 0.3, Absolute Neuts (auto) 9.5 H, Absolute Lymphs (auto) 1.07, Nucleated RBC % 0 12/20/20 06:52: Sodium 135 L, Potassium 4.0, Chloride 93 L, Carbon Dioxide 36.0 H, Anion Gap 6, BUN 8, Creatinine 0.69, Estim Creat Clear Calc 98.42, Est GFR (MDRD) Af Amer 120, Est GFR (MDRD) Non-Af 99, BUN/Creatinine Ratio 11.6, Glucose 103, Calcium 8.8, Phosphorus 3.5, Magnesium 2.0, Total Bilirubin 0.30, AST 13 L, ALT 8 L, Alkaline Phosphatase 104, Total Protein 8.2, Albumin 1.8 L, Globulin 6.4 H, Albumin/Globulin Ratio 0.3 L, TSH 2.21 Micro: Microbiology 12/20/20 01:35 Wound - Leg, Left Gram Stain - Final
[2020-12-21] VITALS (9 sets, daily range): BP systolic 130–138; BP diastolic 60–76; PULSE 110–120; RESP 16–24; TEMP 36.6–37.1; O2SAT 92–100
[2020-12-21] MEDS: HYDROmorphone 1 MG/ML Syringe IV ×5 (00:19→21:29)
[2020-12-21] MEDS: Acetaminophen 325 MG Tablet 650 MG PO ×2 (02:57→08:20)
[2020-12-21] MEDS: 0.9% Saline Lock 10 ML Syringe IV ×5 (03:34→21:27)
[2020-12-21] MEDS: Budesonide Respules 0.5 MG/2 ML AMPUL.NEB. INHALATION ×2 (07:14→18:52)
[2020-12-21] MEDS: Montelukast 10 MG Tablet PO ×2 (08:15→21:26)
[2020-12-21] MEDS: Furosemide 40 MG Tablet PO (08:15)
[2020-12-21] MEDS: Enoxaparin 40 MG/0.4 ML Syringe SC ×2 (08:15→21:26)
[2020-12-21] MEDS: DULoxetine Hcl 20 MG Capsule PO ×2 (08:15→21:26)
[2020-12-21 12:19] LABS: Vancomycin, Trough Level 19.6 ug/mL (5.0-15.0)
--- NOTE | 2020-12-21 15:33 | PN.HOSP_ITS ---
Subjective Subjective Patient seen and examined. She still complained of pain in the cellulitic areas. Review of systems is otherwise negative. She is tachycardic today. Objective Data Objective Data Vital Signs: Vital Signs Temp Pulse Resp BP Pulse Ox 98.7 F 120 H 18 138/76 H 100 12/21/20 14:19 12/21/20 14:19 12/21/20 14:19 12/21/20 14:19 12/21/20 14:19 Oxygen Flow Rate (L/min) 2 Oxygen Delivery Method Nasal Cannula Weight: 457 lb 0.292 oz Body Mass Index (BMI) 73.7 Intake & Output: Intake and Output for Last 24 Hours 12/19/20 12/20/20 12/21/20 23:59 23:59 23:59 Intake Total 2242.5 / 2242.5 1405 / 1405 Balance 2242.5 / 2242.5 1405 / 1405 Lab / Micro Data Result Diagrams: 12/20/20 06:52 12/20/20 06:52 Labs: Laboratory Results - last 24 hr 12/21/20 11:35: Vancomycin Trough 19.6 H Micro: Microbiology 12/20/20 01:35 Wound - Leg, Left Gram Stain - Final 12/20/20 01:35 Wound - Leg, Left Wound Culture - Preliminary Gram negative hilaria Physical Exam Const alert, oriented x3 and no apparent distress Constitutional Narrative: super morbid obesity General Appearance: cooperative Exam Limitations: no limitations HEENT normocephalic, head/scalp atraumatic, moist oral mucous membranes and oropharynx normal Head and Scalp: normocephalic Eyes PERRL, EOMs intact bilaterally, conjunctivae normal and no scleral icterus Eyes Narrative: No scleral icterus, conjunctiva mildly pale Neck no lymphadenopathy, supple, no JVD, thyroid normal and no carotid bruits Neck Narrative: Short thick neck General: trachea midline Resp normal respiratory effort, normal air movement, no retractions, no use of accessory muscles and clear to auscultation bilaterally Effort and Inspection: tachypneic Auscultation: diminished lung sounds Cardio regular rate, S1 normal heart sound, S2 normal heart sound, no murmurs, no rub, no gallops and peripheral pulses 2+ throughout Cardio Narrative: tachcyardic Rate: tachycardic GI normal to inspection, nondistended, normoactive bowel sounds, soft to palpation, non-tender and non-distended Extremity normal to inspection, full ROM and normal capillary refill Extremity Narrative: lower extremities wrapped in CHANO bandage. General Extremity: edema bilateral lower extremity Details: severe and no tenderness to palpation of joints or extremities Skin Skin Narrative: has erythematous, edematous areas over lower extremities, mainly over her thighs; with a pustular rash. Mildly tender to touch. General Skin Exam: turgor normal Lesions: lesion noted Wounds: wounds noted Neuro oriented x3, CN's II-XII intact bilaterally, no focal motor deficits and no sensory deficits noted Sensorium / Orientation: awake and alert Speech: speech normal Motor Exam: general weakness Psych thought process normal, cooperative and affect normal Appearance: appropriate Assessment & Plan Assessment/Plan (1) Cellulitis of left leg: PLAN: #Cellulitis of the LLE * cellulitis is recurrent * on IV vancomycin and meropenem * wound care on board * ID consulted * wound and MRSA cultures pending. * #Chronic anemia * Hb was 7.9 yesterday; her baseline is ~ 8-10. Will monitor * #Sinus tachycardia * patient has been tachycardic since admission. HR has been in the 110s-120s * from EMR, tachycardia has been persistent since September 2020, when earliest recorded EKG is available * TSH is WNL * will get 2D echo * start on PO metoprolol 25mg bid. * #COPD: on breathing treatment with bronchodilators #Super morbid obesity: BMI is 73.8. This affects expected recovery and prognosis. DVT prophylaxis; lovenox Charges/Coding Visit Charges Inpatient E&M: 31117 Subs Hosp L3
--- NOTE | 2020-12-21 15:44 | ECHOCS_ITS ---
Reason For Study: Arrhythmia Procedure This was a 2D Doppler, Color Flow transthoracic echocardiogram. Technically difficult due to patients body habitus. Contrast injection performed. Exam performed portable in patient room. Left Ventricle Normal LV size. The estimated ejection fraction is 65 %. No evidence for diastolic dysfunction. No regional wall motion abnormalities noted. Right Ventricle Normal RV size. Normal systolic function. Atria Normal left atrium. Normal right atrium. No doppler evidence for ASD. Mitral Valve There is no mitral valve stenosis. No mitral valve insufficiency. Tricuspid Valve There is no tricuspid stenosis. Unable to estimate RV systolic pressure due to inadequate jet, pulmonary artery pressure probably normal. Aortic Valve Trisinus/trileaflet aortic valve. There is no aortic stenosis. No aortic valve insufficiency. Pulmonic Valve There is no pulmonic valvular stenosis. No pulmonic valve insufficiency. Great Vessels Normal aortic root. Pericardium/Pleural No pericardial effusion. Medication Diluted definity 4ml given slow IV push to enhance endocardial definition. MMode/2D Measurements & Calculations LA dimension: 3.9 cm LAV(MOD-sp2): 42.2 ml Time Measurements MV dec time: 0.24 sec Doppler Measurements & Calculations MV E max narciso: 119.9 cm/sec Lat Peak E' Narciso: 8.4 cm/sec Med Peak E' Narciso: 11.0 cm/sec MV A max narciso: 146.0 cm/sec E/E' lat: 14.3 E/E' med: 10.9 MV E/A: 0.82 MV V2 max: 151.7 cm/sec MV P1/2t max narciso: 148.7 cm/sec Ao V2 max: 153.6 cm/sec MV max P.2 mmHg MV P1/2t: 82.6 msec Ao max P.4 mmHg MV V2 mean: 102.6 cm/sec MV mean P.9 mmHg MV dec slope: 527.2 cm/sec2 MV V2 VTI: 30.6 cm MVA(P1/2t): 2.7 cm2 LV V1 max: 140.5 cm/sec PA V2 max: 137.7 cm/sec LV V1 max P.9 mmHg ECHO/Echo Complete W/ Contrast Interpretation Summary The estimated ejection fraction is 65 %. No evidence for diastolic dysfunction. Ordering Physician: Xochitl Cardoso Referring Physician: Mireille Dietz M.D. Performed By: Sergio Rodriguez RCS
--- NOTE | 2020-12-21 15:55 | PCM.RX.CS ---
Consult Pharmacy has been consulted to manage selected antiobiotic: Vancomycin Type of Consult: Follow-up Suspected Infection: Skin/Soft tissue Prior Doses of Antibiotics Received/Current Regimen: 12/21 @ 0014 Labs: Sodium 135 mmol/L (136-145) L 12/20/20 06:52 Potassium 4.0 mmol/L (3.5-5.1) 12/20/20 06:52 Chloride 93 mmol/L (98-107) L 12/20/20 06:52 Carbon Dioxide 36.0 mmol/L (21.0-32.0) H 12/20/20 06:52 Anion Gap 6 (5-15) 12/20/20 06:52 BUN 8 mg/dL (7-18) 12/20/20 06:52 Creatinine 0.69 mg/dL (0.55-1.02) 12/20/20 06:52 Est GFR (MDRD) Af Amer 120 mL/min (>60) 12/20/20 06:52 Est GFR (MDRD) Non-Af 99 mL/min (>60) 12/20/20 06:52 BUN/Creatinine Ratio 11.6 RATIO (10-20) 12/20/20 06:52 Glucose 103 mg/dL (74-106) 12/20/20 06:52 Vancomycin Trough 19.6 ug/mL (5.0-15.0) H 12/21/20 11:35 Microbiology: Microbiology 12/20/20 01:35 Wound - Leg, Left Gram Stain - Final 12/20/20 01:35 Wound - Leg, Left Wound Culture - Preliminary Gram negative hilaria Weight used for dosin kg Estimated Creatinine Clearance: 98 Goal Trough: 10-15 mcg/mL Pharmacy Plan for Drug Dosing: Changed dose to 1250mg every 12 hours with a trough to be drawn 30 minutes prior to 4 dose. Pharmacy Service will continue to monitor and adjust dosing as required. Follow-Up Labs: Trough Vancomycin
[2020-12-21 16:41] LABS: Absolute Lymphocyte Count 0.96 X10^3/uL (0.83-4.51); Absolute Neutrophil Count 10.2 X10^3/uL (2.0-7.7); Basophil# 0.03 X10^3/uL; Basophil% 0.2 % (0-1); Eosinophils% 1.6 % (0-5); Hematocrit 26.4 % (37-47); Hemoglobin 7.6 g/dL (12.0-15.0); Lymphocyte # 0.96 X10^3/ul (0.83-4.51); Lymphocyte % 7.9 % (19-41); Mean Corp Hgb Conc 28.8 g/dL (32-36); Mean Corpuscular Hgb 24.4 pg (27.0-32.0); Mean Corpuscular Volume 84.6 fL (81-99); Monocyte# 0.72 X10^3/uL; Monocyte% 5.9 % (0-10); NRBC Flagged by Analyzer 0 % (0-5); Neutrophil # 10.18 X10^3/uL (2.7-7.7); Neutrophil % 83.9 % (47-70); Platelet Count 496 K/mm3 (150-450); RBC Distribution Width CV 18.3 % (11.6-14.6); RBC Distribution Width SD 55.8 fl (35.1-43.9); Red Blood Count 3.12 M/mm3 (4.2-5.4); White Blood Count 12.2 K/mm3 (4.4-11.0)
[2020-12-21 17:05] LABS: Anion Gap 3 (5-15); BUN 9 mg/dL (7-18); BUN/Creat Ratio 12.8 RATIO (10-20); Calcium,Total 8.7 mg/dL (8.5-10.1); Chloride 96 mmol/L (98-107); EST Glomerular Filtration Rate 96 mL/min (>60); Est Glom Filt Rate - Afr Amer 117 mL/min (>60); Estimated Creatinine Clearance 97.01 ml/min; Glucose 130 mg/dL (74-106); Sodium Level 136 mmol/L (136-145)
[2020-12-22] VITALS (10 sets, daily range): BP systolic 120–135; BP diastolic 42–65; PULSE 111–118; RESP 18–20; TEMP 36.8–37; O2SAT 92–98
[2020-12-22] MEDS: HYDROmorphone 1 MG/ML Syringe IV ×5 (00:44→22:44)
[2020-12-22] MEDS: Gabapentin 300 MG Capsule PO ×3 (00:44→22:48)
--- NOTE | 2020-12-22 02:44 | NURSING ---
WASHER AND CAPPER MACHINE OPERATOR charting reviewed by this RN
[2020-12-22 06:18] LABS: Absolute Lymphocyte Count 1.13 X10^3/uL (0.83-4.51); Absolute Neutrophil Count 8.5 X10^3/uL (2.0-7.7); Basophil# 0.03 X10^3/uL; Basophil% 0.3 % (0-1); Eosinophil# 0.21 X10^3/uL; Hematocrit 24.3 % (37-47); Lymphocyte # 1.13 X10^3/ul (0.83-4.51); Lymphocyte % 10.5 % (19-41); Mean Corp Hgb Conc 28.8 g/dL (32-36); Mean Corpuscular Hgb 24.1 pg (27.0-32.0); Mean Corpuscular Volume 83.5 fL (81-99); Mean Platelet Vol. 8.9 fl (6.2-12.0); Monocyte# 0.87 X10^3/uL; Monocyte% 8.1 % (0-10); NRBC Flagged by Analyzer 0 % (0-5); Neutrophil # 8.46 X10^3/uL (2.7-7.7); Neutrophil % 78.5 % (47-70); Platelet Count 455 K/mm3 (150-450); RBC Distribution Width CV 18.3 % (11.6-14.6); RBC Distribution Width SD 55.3 fl (35.1-43.9); Red Blood Count 2.91 M/mm3 (4.2-5.4); White Blood Count 10.8 K/mm3 (4.4-11.0)
[2020-12-22 06:48] LABS: Anion Gap 4 (5-15); BUN 7 mg/dL (7-18); BUN/Creat Ratio 12.3 RATIO (10-20); Calcium,Total 8.5 mg/dL (8.5-10.1); Chloride 93 mmol/L (98-107); Creatinine, Serum 0.57 mg/dL (0.55-1.02); EST Glomerular Filtration Rate 122 mL/min (>60); Est Glom Filt Rate - Afr Amer 148 mL/min (>60); Estimated Creatinine Clearance 117.91 ml/min; Glucose 98 mg/dL (74-106); Potassium 3.7 mmol/L (3.5-5.1); Sodium Level 135 mmol/L (136-145)
[2020-12-22] MEDS: Budesonide Respules 0.5 MG/2 ML AMPUL.NEB. INHALATION ×2 (07:17→19:37)
[2020-12-22] MEDS: 0.9% Saline Lock 10 ML Syringe IV ×3 (08:12→16:27)
[2020-12-22] MEDS: Furosemide 40 MG Tablet PO ×2 (08:18→08:19)
[2020-12-22] MEDS: DULoxetine Hcl 20 MG Capsule PO ×2 (08:19→21:16)
[2020-12-22 08:51] LABS: Hematocrit 26.8 % (37-47); Hemoglobin 7.6 g/dL (12.0-15.0)
[2020-12-22] MEDS: Montelukast 10 MG Tablet PO ×2 (11:05→21:16)
--- NOTE | 2020-12-22 14:32 | PN.HOSP_ITS ---
Subjective Subjective Patient seen and examined. She complained of pain in her LEs; she had no other complaints and review of systems was otherwise negative. Her Hb was noted to have dropped to 7 today, but on repeat was actually 7.6. Objective Data Objective Data Vital Signs: Vital Signs Temp Pulse Resp BP Pulse Ox 98.3 F 113 H 18 135/65 H 96 12/22/20 14:11 12/22/20 14:11 12/22/20 14:11 12/22/20 14:11 12/22/20 14:11 Oxygen Flow Rate (L/min) 2 Oxygen Delivery Method Nasal Cannula Weight: 457 lb 0.292 oz Body Mass Index (BMI) 73.7 Intake & Output: Intake and Output for Last 24 Hours 12/20/20 12/21/20 12/22/20 23:59 23:59 23:59 Intake Total 2242.5 / 2242.5 1959 415 / 415 Balance 2242.5 / 2242.5 1959 415 / 415 Lab / Micro Data Result Diagrams: 12/22/20 08:23 12/22/20 06:00 Labs: Laboratory Results - last 24 hr 12/21/20 16:20: WBC 12.2 H, RBC 3.12 L, Hgb 7.6 L, Hct 26.4 L, MCV 84.6, MCH 24.4 L, MCHC 28.8 L, RDW Std Deviation 55.8 H, RDW Coeff of Fanny 18.3 H, Plt Count 496 H, MPV 9.0, Immature Gran % (Auto) 0.500, Neut % (Auto) 83.9 H, Lymph % (Auto) 7.9 L, [place] % (Auto) 5.9, Eos % (Auto) 1.6, Baso % (Auto) 0.2, Absolute Neuts (auto) 10.2 H, Absolute Lymphs (auto) 0.96, Nucleated RBC % 0 12/21/20 16:20: Sodium 136, Potassium 4.0, Chloride 96 L, Carbon Dioxide 37.0 H, Anion Gap 3 L, BUN 9, Creatinine 0.70, Estim Creat Clear Calc 97.01, Est GFR (MDRD) Af Amer 117, Est GFR (MDRD) Non-Af 96, BUN/Creatinine Ratio 12.8, Glucose 130 H, Calcium 8.7 12/22/20 06:00: WBC 10.8, RBC 2.91 L, Hgb 7.0 L, Hct 24.3 L, MCV 83.5, MCH 24.1 L, MCHC 28.8 L, RDW Std Deviation 55.3 H, RDW Coeff of Fanny 18.3 H, Plt Count 455 H, MPV 8.9, Immature Gran % (Auto) 0.600, Neut % (Auto) 78.5 H, Lymph % (Auto) 10.5 L, [place] % (Auto) 8.1, Eos % (Auto) 2.0, Baso % (Auto) 0.3, Absolute Neuts (auto) 8.5 H, Absolute Lymphs (auto) 1.13, Nucleated RBC % 0 12/22/20 06:00: Sodium 135 L, Potassium 3.7, Chloride 93 L, Carbon Dioxide 38.0 H, Anion Gap 4 L, BUN 7, Creatinine 0.57, Estim Creat Clear Calc 117.91, Est GFR (MDRD) Af Amer 148, Est GFR (MDRD) Non-Af 122, BUN/Creatinine Ratio 12.3, Glucose 98, Calcium 8.5 12/22/20 08:23: Hgb 7.6 L, Hct 26.8 L Micro: Microbiology 12/19/20 23:27 Blood Culture (Wb) - Left Forearm Blood Culture - Preliminary No growth in 48 hours. 12/19/20 23:30 Blood Culture (Wb) - Left Wrist Blood Culture - Preliminary No growth in 48 hours. 12/20/20 01:35 Wound - Leg, Left Gram Stain - Final 12/20/20 01:35 Wound - Leg, Left Wound Culture - Preliminary Gram negative hilaria Gram negative hilaria#2 Radiography Diagnostic Testing: Radiology Impression Echocardiogram 12/21/20 15:44 Interpretation Summary The estimated ejection fraction is 65 %. No evidence for diastolic dysfunction. Ordering Physician: Xochitl Cardoso Referring Physician: Mireille Dietz M.D. Performed By: Sergio Rodriguez RCS Physical Exam Const alert, oriented x3 and no apparent distress Constitutional Narrative: super morbid obesity General Appearance: cooperative Exam Limitations: no limitations HEENT normocephalic, head/scalp atraumatic, moist oral mucous membranes and oropharynx normal Head and Scalp: normocephalic Eyes PERRL, EOMs intact bilaterally, conjunctivae normal and no scleral icterus Eyes Narrative: No scleral icterus, conjunctiva mildly pale Neck no lymphadenopathy, supple, no JVD, thyroid normal and no carotid bruits Neck Narrative: Short thick neck General: trachea midline Resp normal respiratory effort, normal air movement, no retractions, no use of accessory muscles and clear to auscultation bilaterally Effort and Inspection: tachypneic Auscultation: diminished lung sounds Cardio regular rhythm, S1 normal heart sound, S2 normal heart sound, no murmurs, no rub, no gallops and peripheral pulses 2+ throughout Cardio Narrative: tachcyardic Rate: tachycardic GI normal to inspection, nondistended, normoactive bowel sounds, soft to palpation, non-tender and non-distended Extremity normal to inspection, full ROM and normal capillary refill Extremity Narrative: lower extremities wrapped in CHANO bandage. General Extremity: edema bilateral lower extremity Details: severe and no tenderness to palpation of joints or extremities Skin Skin Narrative: has erythematous, edematous areas over lower extremities, mainly over her thighs; with a pustular rash. swelling has improved, and tenderness is much better. General Skin Exam: turgor normal Lesions: lesion noted Wounds: wounds noted Neuro oriented x3, CN's II-XII intact bilaterally, no focal motor deficits and no sensory deficits noted Sensorium / Orientation: awake and alert Speech: speech normal Motor Exam: general weakness Psych thought process normal, cooperative and affect normal Appearance: appropriate Assessment & Plan Assessment/Plan (1) Cellulitis of left leg: PLAN: #Cellulitis of the LLE * cellulitis is recurrent * on IV vancomycin and meropenem * wound care on board * ID consulted * wound cultures growing gram negative rods; speciation pending * blood cultures show no growth after 48 hours. * #Chronic anemia * Hb today was 7; on repeat it was 7.6. baseline is ~ 9-10. * hold lovenox * check stool for occult blood and iron panel * #Sinus tachycardia * patient has been tachycardic since admission. HR has been in the 110s-120s * from EMR, tachycardia has been persistent since September 2020, when earliest recorded EKG is available * TSH is WNL * patient was started on metoprolol, but refused to take it, as she said she has been tachycardic since childhood * will get 2D echo * #COPD: on breathing treatment with bronchodilators #Super morbid obesity: BMI is 73.8. This affects expected recovery and prognosis. DVT prophylaxis; lovenox held o/a of anemia. SCDs. Charges/Coding Visit Charges Inpatient E&M: 87848 Subs Hosp L2
--- NOTE | 2020-12-22 16:17 | PCM.PN.ID ---
Physical Exam Narrative Feeling better, legs less sore, no fever Const alert General Appearance: cooperative Resp normal air movement and clear to auscultation bilaterally Cardio regular rate and regular rhythm GI normal to inspection, nondistended, normoactive bowel sounds Skin Skin Narrative: Legs wrapped ID ID: Route of nutrition/ use of supplements: [] Nutritional Intake: [] IV Site: [] Aj Catheter: [] Assessment & Plan Assessment/Plan (1) Cellulitis of left leg: PLAN: On vanc/rocio, improving. Cxs with GNR x2. Did get 1st dose covid shot here last admit. Will follow
--- NOTE | 2020-12-22 17:30 | NURSING ---
ONLY HAVE MED SCDS ON UNIT. WEB DEVELOPER PROGRAMMER AWARE AND WILL CHECK IN MM FOR LARGER SIZE.
[2020-12-22 17:51] LABS: Ferritin 118 ng/mL (8-252); Iron 27 ug/dL (50-170); Iron Binding Capacity,Total 207 ug/dL (250-450)
[2020-12-23] VITALS (7 sets, daily range): BP systolic 117–135; BP diastolic 59–74; PULSE 88–124; RESP 16–24; TEMP 37–37.3; O2SAT 96–99
[2020-12-23] MEDS: HYDROmorphone 1 MG/ML Syringe IV ×4 (03:14→23:33)
[2020-12-23 03:23] LABS: Vancomycin, Trough Level 15.8 ug/mL (5.0-15.0)
[2020-12-23 03:29] LABS: Anion Gap 4 (5-15); BUN 7 mg/dL (7-18); BUN/Creat Ratio 13.5 RATIO (10-20); Calcium,Total 8.7 mg/dL (8.5-10.1); Chloride 95 mmol/L (98-107); Creatinine, Serum 0.52 mg/dL (0.55-1.02); EST Glomerular Filtration Rate 137 mL/min (>60); Est Glom Filt Rate - Afr Amer 166 mL/min (>60); Estimated Creatinine Clearance 129.24 ml/min; Glucose 101 mg/dL (74-106); Potassium 4.4 mmol/L (3.5-5.1); Sodium Level 132 mmol/L (136-145)
--- NOTE | 2020-12-23 04:45 | PCM.RX.CS ---
Consult Pharmacy has been consulted to manage selected antiobiotic: Vancomycin Type of Consult: Follow-up Labs: Sodium 132 mmol/L (136-145) L 12/23/20 02:43 Potassium 4.4 mmol/L (3.5-5.1) 12/23/20 02:43 Chloride 95 mmol/L (98-107) L 12/23/20 02:43 Carbon Dioxide 33.0 mmol/L (21.0-32.0) H 12/23/20 02:43 Anion Gap 4 (5-15) L 12/23/20 02:43 BUN 7 mg/dL (7-18) 12/23/20 02:43 Creatinine 0.52 mg/dL (0.55-1.02) L 12/23/20 02:43 Est GFR (MDRD) Af Amer 166 mL/min (>60) 12/23/20 02:43 Est GFR (MDRD) Non-Af 137 mL/min (>60) 12/23/20 02:43 BUN/Creatinine Ratio 13.5 RATIO (10-20) 12/23/20 02:43 Glucose 101 mg/dL (74-106) 12/23/20 02:43 Vancomycin Trough 15.8 ug/mL (5.0-15.0) H 12/23/20 02:43 Microbiology: Microbiology 12/19/20 23:27 Blood Culture (Wb) - Left Forearm Blood Culture - Preliminary No growth in 48 hours. 12/19/20 23:30 Blood Culture (Wb) - Left Wrist Blood Culture - Preliminary No growth in 48 hours. 12/20/20 01:35 Wound - Leg, Left Gram Stain - Final 12/20/20 01:35 Wound - Leg, Left Wound Culture - Preliminary Gram negative hilaria Gram negative hilaria#2 Goal Trough: 10-15 mcg/mL Pharmacy Plan for Drug Dosing: Pharmacy Service will continue to monitor and adjust dosing as required. TROUGH 15.8 @ 12 HOURS NO CHANGES NOW, REDRAW TROUGH IN 2 DOSES AND FOLLOW UP THEN Follow-Up Labs: Trough Vancomycin Labs to be done on [date and time ordered]: 12/24 @ 8104
[2020-12-23] MEDS: Budesonide Respules 0.5 MG/2 ML AMPUL.NEB. INHALATION ×2 (06:57→19:21)
[2020-12-23] MEDS: Albuterol 2.5 MG/3 ML VIAL.NEB. INHALATION ×2 (06:57→19:21)
[2020-12-23] MEDS: Furosemide 40 MG Tablet PO ×2 (09:13)
[2020-12-23] MEDS: Montelukast 10 MG Tablet PO ×2 (09:14→21:44)
[2020-12-23] MEDS: DULoxetine Hcl 20 MG Capsule PO ×2 (09:14→21:44)
[2020-12-23 09:46] LABS: Absolute Lymphocyte Count 1.08 X10^3/uL (0.83-4.51); Absolute Neutrophil Count 10.6 X10^3/uL (2.0-7.7); Basophil# 0.03 X10^3/uL; Basophil% 0.2 % (0-1); Eosinophil# 0.19 X10^3/uL; Eosinophils% 1.5 % (0-5); Hematocrit 26.9 % (37-47); Hemoglobin 7.9 g/dL (12.0-15.0); Lymphocyte # 1.08 X10^3/ul (0.83-4.51); Lymphocyte % 8.3 % (19-41); Mean Corp Hgb Conc 29.4 g/dL (32-36); Mean Corpuscular Hgb 23.9 pg (27.0-32.0); Mean Corpuscular Volume 81.5 fL (81-99); Mean Platelet Vol. 9.5 fl (6.2-12.0); Monocyte# 0.93 X10^3/uL; Monocyte% 7.2 % (0-10); NRBC Flagged by Analyzer 0.2 % (0-5); Neutrophil # 10.59 X10^3/uL (2.7-7.7); Neutrophil % 81.6 % (47-70); POSITIVE COUNT YES; Platelet Count 445 K/mm3 (150-450); RBC Distribution Width CV 18.3 % (11.6-14.6); RBC Distribution Width SD 53.9 fl (35.1-43.9)
--- NOTE | 2020-12-23 10:38 | PN.HOSP_ITS ---
Subjective Subjective Patient seen and examined. She was tearful due to pain from working with PT/OT. She had no other complaints and was requesting pain medication. Review of systems was otherwise negative. Objective Data Objective Data Vital Signs: Vital Signs Temp Pulse Resp BP Pulse Ox 99.1 F 124 H 18 117/67 96 12/23/20 09:04 12/23/20 09:04 12/23/20 09:04 12/23/20 09:04 12/23/20 09:04 Oxygen Flow Rate (L/min) 3 Oxygen Delivery Method Room Air Weight: 457 lb 0.292 oz Body Mass Index (BMI) 73.7 Intake & Output: Intake and Output for Last 24 Hours 12/21/20 12/22/20 12/23/20 23:59 23:59 23:59 Intake Total 1959 970 / 970 415 / 415 Balance 1959 970 / 970 415 / 415 Lab / Micro Data Result Diagrams: 12/23/20 09:30 12/23/20 02:43 Labs: Laboratory Results - last 24 hr 12/22/20 06:00: Iron 27 L, TIBC 207 L, Iron Saturation 13.0 L, Ferritin 118 12/23/20 02:43: Sodium 132 L, Potassium 4.4, Chloride 95 L, Carbon Dioxide 33.0 H, Anion Gap 4 L, BUN 7, Creatinine 0.52 L, Estim Creat Clear Calc 129.24, Est GFR (MDRD) Af Amer 166, Est GFR (MDRD) Non-Af 137, BUN/Creatinine Ratio 13.5, Glucose 101, Calcium 8.7 12/23/20 02:43: Vancomycin Trough 15.8 H 12/23/20 09:30: WBC 13.0 H, RBC 3.30 L, Hgb 7.9 L, Hct 26.9 L, MCV 81.5, MCH 23.9 L, MCHC 29.4 L, RDW Std Deviation 53.9 H, RDW Coeff of Fanny 18.3 H, Plt Count 445, MPV 9.5, Immature Gran % (Auto) 1.200 H, Neut % (Auto) 81.6 H, Lymph % (Auto) 8.3 L, [place] % (Auto) 7.2, Eos % (Auto) 1.5, Baso % (Auto) 0.2, Absolute Neuts (auto) 10.6 H, Absolute Lymphs (auto) 1.08, Nucleated RBC % 0.2 Micro: Microbiology 12/20/20 01:35 Wound - Leg, Left Gram Stain - Final 12/20/20 01:35 Wound - Leg, Left Wound Culture - Final Enterobacter cloacae complex Morganella morganii sp morgani 12/19/20 23:27 Blood Culture (Wb) - Left Forearm Blood Culture - Preliminary No growth in 48 hours. 12/19/20 23:30 Blood Culture (Wb) - Left Wrist Blood Culture - Preliminary No growth in 48 hours. Radiography Diagnostic Testing: Radiology Impression Echocardiogram 12/21/20 15:44 Interpretation Summary The estimated ejection fraction is 65 %. No evidence for diastolic dysfunction. Ordering Physician: Xochitl Cardoso Referring Physician: Mireille Dietz M.D. Performed By: Sergio Rodriguez RCS Physical Exam Const alert, oriented x3 and no apparent distress Constitutional Narrative: super morbid obesity General Appearance: cooperative Exam Limitations: no limitations HEENT normocephalic, head/scalp atraumatic, moist oral mucous membranes and oropharynx normal Head and Scalp: normocephalic Eyes PERRL, EOMs intact bilaterally, conjunctivae normal and no scleral icterus Eyes Narrative: No scleral icterus, conjunctiva mildly pale Neck no lymphadenopathy, supple, no JVD, thyroid normal and no carotid bruits General: trachea midline Resp normal respiratory effort, normal air movement, no retractions, no use of accessory muscles and clear to auscultation bilaterally Effort and Inspection: tachypneic Auscultation: diminished lung sounds Cardio regular rhythm, S1 normal heart sound, S2 normal heart sound, no murmurs, no rub, no gallops and peripheral pulses 2+ throughout Cardio Narrative: tachcyardic Rate: tachycardic GI normal to inspection, nondistended, normoactive bowel sounds, soft to palpation, non-tender and non-distended Extremity normal to inspection, full ROM and normal capillary refill Extremity Narrative: lower extremities wrapped in CHANO bandage. General Extremity: edema bilateral lower extremity Details: severe and no tenderness to palpation of joints or extremities Skin Skin Narrative: has erythematous, edematous areas over lower extremities, mainly over her thighs; with a pustular rash. swelling has improved, and tenderness is much better. General Skin Exam: turgor normal Lesions: lesion noted Wounds: wounds noted Neuro oriented x3, CN's II-XII intact bilaterally, no focal motor deficits and no sensory deficits noted Sensorium / Orientation: awake and alert Speech: speech normal Motor Exam: general weakness Psych thought process normal, cooperative and affect normal Appearance: appropriate Assessment & Plan Assessment/Plan (1) Cellulitis of left leg: PLAN: #Recurrent cellulitis of the LLE * cellulitis is recurrent * remains on IV vancomycin and meropenem * wound care on board * ID on board; wbc is 13 today. * wound cultures growing Enterobacter cloacae and Morganella, both sensitive for levofloxacin. * will switch to PO levofloxacin. * blood cultures show no growth after 48 hours. * #Chronic anemia * Hb today is 7.9. * iron panel showed low iron of 27, with low TIBC of 207 and low iron saturation of 13; ferritin was also low at 118. * will start on oral iron supplements. * #Sinus tachycardia * patient has been tachycardic since admission. HR has been in the 110s-120s * from EMR, tachycardia has been persistent since September 2020, when earliest recorded EKG is available * TSH is WNL * patient was started on metoprolol, but refused to take it, as she said she has been tachycardic since childhood * 2D echoL: EF of 65%, with no evidence of diastolic dysfunctin, and no regional wall motion abnormalities noted. * #COPD: on breathing treatment with bronchodilators #Super morbid obesity: BMI is 73.8. This affects expected recovery and prognosis. DVT prophylaxis; lovenox held o/a of anemia. SCDs. Disposition: for likely DC over the next 1-2 days. Charges/Coding Visit Charges Inpatient E&M: 35125 Subs Hosp L2
[2020-12-23] MEDS: Ferrous Sulfate 325 MG Tablet PO ×2 (12:32→18:24)
[2020-12-23] MEDS: 0.9% Saline Lock 10 ML Syringe IV ×2 (18:20→23:42)
[2020-12-24 02:45] LABS: Absolute Lymphocyte Count 1.13 X10^3/uL (0.83-4.51); Absolute Neutrophil Count 7.3 X10^3/uL (2.0-7.7); Basophil# 0.03 X10^3/uL; Basophil% 0.3 % (0-1); Eosinophil# 0.16 X10^3/uL; Eosinophils% 1.7 % (0-5); Hematocrit 25.6 % (37-47); Hemoglobin 7.4 g/dL (12.0-15.0); Lymphocyte # 1.13 X10^3/ul (0.83-4.51); Lymphocyte % 12.1 % (19-41); Mean Corp Hgb Conc 28.9 g/dL (32-36); Mean Corpuscular Hgb 24.3 pg (27.0-32.0); Mean Corpuscular Volume 83.9 fL (81-99); Mean Platelet Vol. 9.1 fl (6.2-12.0); Monocyte# 0.67 X10^3/uL; Monocyte% 7.2 % (0-10); NRBC Flagged by Analyzer 0.2 % (0-5); Neutrophil # 7.32 X10^3/uL (2.7-7.7); Neutrophil % 78.3 % (47-70); Platelet Count 479 K/mm3 (150-450); RBC Distribution Width CV 18.4 % (11.6-14.6); Red Blood Count 3.05 M/mm3 (4.2-5.4); White Blood Count 9.4 K/mm3 (4.4-11.0)
[2020-12-24 03:20] VITALS: BP 114/60; PULSE 108; RESP 18; TEMP 37; O2SAT 95
[2020-12-24 03:21] LABS: Anion Gap 4 (5-15); BUN 9 mg/dL (7-18); BUN/Creat Ratio 15.4 RATIO (10-20); Calcium,Total 8.5 mg/dL (8.5-10.1); Chloride 95 mmol/L (98-107); Creatinine, Serum 0.58 mg/dL (0.55-1.02); EST Glomerular Filtration Rate 119 mL/min (>60); Est Glom Filt Rate - Afr Amer 144 mL/min (>60); Estimated Creatinine Clearance 115.87 ml/min; Glucose 105 mg/dL (74-106); Potassium 3.7 mmol/L (3.5-5.1); Sodium Level 138 mmol/L (136-145)
[2020-12-24 03:22] LABS: Vancomycin, Trough Level 7.8 ug/mL (5.0-15.0)
[2020-12-24] MEDS: levoFLOXacin 750 MG Tablet PO (05:42)
[2020-12-24 07:05] VITALS: PULSE 79; RESP 18; O2SAT 93
[2020-12-24] MEDS: Budesonide Respules 0.5 MG/2 ML AMPUL.NEB. INHALATION (07:05)
[2020-12-24] MEDS: Albuterol 2.5 MG/3 ML VIAL.NEB. INHALATION (07:05)
--- NOTE | 2020-12-24 08:55 | CPS ---
PATIENT RECIEVED PRN ALBUTEROL DUE TO SOB.
[2020-12-24 09:41] VITALS: BP 119/59; PULSE 120; RESP 18; TEMP 36.7; O2SAT 97
[2020-12-24] MEDS: Montelukast 10 MG Tablet PO (09:44)
[2020-12-24] MEDS: DULoxetine Hcl 20 MG Capsule PO (09:44)
--- NOTE | 2020-12-24 11:43 | DS.PCM_ITS ---
Providers Date of Admission: 12/20/20 Primary Care Physician: Dr. Mireille Dietz MD Consultations 12/20/20 01:32 Consult: Infectious Disease Routine Consulting Provider: Lloyd Villarreal Reason for Consult: cellulitis EMERGENT Consult: No MD Notified: Yes Date Notified: 12/20/20 Time Notified: 06:08 Method of Notification: Answering Service Consult: Onc/Wound/broomcorn seeder Routine Comment: Reason for Consult:: LE wounds Reason For Visit: LLE CELLULITIS Diagnosis Discharge Diagnosis (1) Cellulitis of left leg: Status: Acute Code(s): L03.116 - Cellulitis of left lower limb Medications at Discharge Home Medications Osteo Bi-Flex Triple Strength 2 tab PO DAILY 10/02/20 acetaminophen 1,300 mg PO Q12H 10/02/20 albuterol sulfate 1 inh INHALATION Q6H PRN 10/02/20 ciclesonide 1 puff INHALATION BID 10/02/20 duloxetine 20 mg PO BID 10/02/20 furosemide 40 mg PO DAILY 10/02/20 gabapentin 300 mg PO TID PRN 10/02/20 ibuprofen 400 mg PO DAILY PRN 10/02/20 montelukast 10 mg PO BID 10/02/20 elderberry fruit 200 mg PO DAILY 12/05/20 mupirocin 1 applic TOPICAL DAILY 12/19/20 levofloxacin 750 mg PO DAILY #7 tab 12/24/20 Hospital Course Operations None Procedures None Summary of Care Provided Minutes Spent on Discharge: 45 Hospital Course: Patient is a 44-year-old female with an extensive past medical history as outlined was admitted through the ED on 12/20/2020 with a complaint of worsening redness and swelling of her lower extremities. Patient had been seen in the hospital and discharged about 10 days prior to this admission and managed for cellulitis of the lower extremities and was discharged home on p.o. doxycycline. However she said her legs were still oozing and burning and she admits to low-grade fever of 99 Fahrenheit. She did have a history of lymphedema she was admitted and managed for recurrent cellulitis of the lower extremities. She was started on IV vancomycin and meropenem. Of note, she was also managed for sepsis due to recurrent lower extremity cellulitis. She had Josemanuel wrap was applied to both lower extremities and ID was consulted. Wound cultures were ordered. Hospital course was complicated by persistent tachycardia which she said was chronic. 2D echo done showed EF of 65% with normal left ventricular systolic function and size and no evidence of diastolic dysfunction and no regional motion abnormalities seen. Patient was started on p.o. metoprolol but she refused to take this. Wound cultures grew Enterobacter cloacae and Morganella both of which was sensitive to levofloxacin. Blood culture showed no growth after 48 hours. Her lower extremity swelling and redness as well as pain improved markedly. Antibiotics were switched to p.o. levofloxacin and she was discharged on p.o. levofloxacin 750 mg daily for 7 days. She is to follow-up with her primary care doctor and ID in about 2 weeks. Patient was seen and examined prior to discharge. She felt better and had no complaints. Review of systems otherwise negative. Labs and vitals reviewed. Home medication reviewed and reconciled. Physical Exam Const alert, oriented x3 and no apparent distress Constitutional Narrative: super morbid obesity General Appearance: cooperative Exam Limitations: no limitations HEENT normocephalic, head/scalp atraumatic, moist oral mucous membranes and oropharynx normal Eyes PERRL, EOMs intact bilaterally, conjunctivae normal and no scleral icterus Eyes Narrative: No scleral icterus, conjunctiva mildly pale Neck no lymphadenopathy, supple, no JVD, thyroid normal and no carotid bruits Neck Narrative: Short thick neck General: trachea midline Resp normal respiratory effort, normal air movement, no retractions, no use of accessory muscles and clear to auscultation bilaterally Effort and Inspection: tachypneic Auscultation: diminished lung sounds Cardio regular rhythm, S1 normal heart sound, S2 normal heart sound, no murmurs, no rub, no gallops and peripheral pulses 2+ throughout Cardio Narrative: tachcyardic Rate: tachycardic GI normal to inspection, nondistended, normoactive bowel sounds, soft to palpation, non-tender and non-distended Extremity normal to inspection, full ROM and normal capillary refill Extremity Narrative: lower extremities wrapped in JOSEMANUEL bandage. General Extremity: edema bilateral lower extremity Details: severe and no tenderness to palpation of joints or extremities Skin Skin Narrative: has erythematous, edematous areas over lower extremities, mainly over her thighs; with a pustular rash. swelling has improved, and tenderness is much better. General Skin Exam: turgor normal Lesions: lesion noted Wounds: wounds noted Neuro oriented x3, CN's II-XII intact bilaterally, no focal motor deficits and no sensory deficits noted Sensorium / Orientation: awake and alert Speech: speech normal Motor Exam: general weakness Psych thought process normal, cooperative and affect normal Appearance: appropriate Weight / BMI Weight Weight: 457 lb 0.292 oz Body Mass Index (BMI) 73.7 ABG / Lab / Microbiology Data Result Diagrams: 12/24/20 02:30 12/24/20 02:30 Laboratory: Laboratory Results - last 24 hr 12/24/20 02:30: WBC 9.4, RBC 3.05 L, Hgb 7.4 L, Hct 25.6 L, MCV 83.9, MCH 24.3 L , MCHC 28.9 L, RDW Std Deviation 55.0 H, RDW Coeff of Fanny 18.4 H, Plt Count 479 H, MPV 9.1, Immature Gran % (Auto) 0.400, Neut % (Auto) 78.3 H, Lymph % (Auto) 12.1 L, [place] % (Auto) 7.2, Eos % (Auto) 1.7, Baso % (Auto) 0.3, Absolute Neuts (auto) 7.3, Absolute Lymphs (auto) 1.13, Nucleated RBC % 0.2 12/24/20 02:30: Sodium 138, Potassium 3.7, Chloride 95 L, Carbon Dioxide 39.0 H, Anion Gap 4 L, BUN 9, Creatinine 0.58, Estim Creat Clear Calc 115.87, Est GFR (MDRD) Af Amer 144, Est GFR (MDRD) Non-Af 119, BUN/Creatinine Ratio 15.4, Glucose 105, Calcium 8.5 12/24/20 02:30: Vancomycin Trough 7.8 Microbiology: Microbiology 12/20/20 01:35 Wound - Leg, Left Gram Stain - Final 12/20/20 01:35 Wound - Leg, Left Wound Culture - Final Enterobacter cloacae complex Morganella morganii sp morgani 12/19/20 23:27 Blood Culture (Wb) - Left Forearm Blood Culture - Preliminary No growth in 48 hours. 12/19/20 23:30 Blood Culture (Wb) - Left Wrist Blood Culture - Preliminary No growth in 48 hours. D/C Instructions Discharge Diet: Low fat / Low cholesterol Weight Bearing Status: Weight bearing as tolerated Call your doctor if you observe: Fever of 101 or Higher, Shortness of breath, Dizziness, Swelling in the ankles and Increased palpitations (irregular heartbeat) Meaningful Use Info Meaningful Use Diagnoses (Choose all that apply): None applicable Discharge Plan Admission Admit Date/Time: 12/20/20 00:42 Primary Reason for Your Visit: recurrent cellulitis of the lower extremities Attending Provider: Xochitl Cardoso Primary Care Provider: Mireille Dietz Consulting Providers: Lloyd Villarreal Instructions Patient Instructions: Discharge Instructions for ..., Cellulitis Discharge Orders/Prescriptions Prescriptions: New levofloxacin 750 mg tablet 750 mg PO DAILY Qty: 7 RF: 0 Continued duloxetine 20 mg Capsule, Delayed Rel Sprinkle 20 mg PO BID RF: 0 furosemide 40 mg Tablet 40 mg PO DAILY RF: 0 gabapentin 300 mg Capsule 300 mg PO TID PRN (Reason: muscle spasms) RF: 0 montelukast 10 mg Tablet 10 mg PO BID RF: 0 ciclesonide 80 mcg/actuation Hfa Aerosol Inhaler 1 puff INHALATION BID RF: 0 albuterol sulfate 90 mcg/actuation Aerosol Powdr Breath Activated 1 inh INHALATION Q6H PRN (Reason: Wheezing) RF: 0 acetaminophen 650 mg Tablet Extended Release 1,300 mg PO Q12H RF: 0 ibuprofen 200 mg Tablet 400 mg PO DAILY PRN (Reason: Pain) RF: 0 Osteo Bi-Flex Triple Strength 750 mg-644 mg- 30 mg-1 mg Tablet 2 tab PO DAILY RF: 0 elderberry fruit 200 mg Capsule 200 mg PO DAILY RF: 0 mupirocin 2 % ointment 1 applic TOPICAL DAILY RF: 0 Discontinued doxycycline hyclate 100 mg capsule 100 mg PO BID Qty: 10 RF: 0 Referrals / Follow Up: Mirelile Dietz MD [Primary Care Provider] - Within 2 Weeks Lloyd Villarreal MD [STAFF PHYSICIAN] - Within 2 Weeks Disposition Disposition (needs filled in before D/C Order can be placed): Home, Self Care Charges/Coding Visit Charges Inpatient E&M: 31970 Disch Hosp
[2020-12-24] MEDS: Ferrous Sulfate 325 MG Tablet PO (12:15)
[2020-12-24] MEDS: Gabapentin 300 MG Capsule PO (12:15)
[2020-12-24] MEDS: Acetaminophen 325 MG Tablet 650 MG PO (12:15)
[2020-12-24 13:47] VITALS: BP 141/86; PULSE 111; RESP 20; TEMP 36.8; O2SAT 100
--- NOTE | 2020-12-25 15:49 | CASEMGMT ---
RN KATHIE Discharge Follow Up Phone Call: TERESAGenny: David Strata: 3 Call Date: 12/25/20 Discharge Date: 12/24/20 Time of Call:1545 Duration:4 min Admitting Dx:TERRI cellulitis RN KATHIE completed follow up phone call after recent hospitalization. Pt states she is in alot of pain. States she can't believe that she was sent home without pain meds. She has not yet picked up her atb, encouraged her to do so ROYAL. Pt expresses dissatisfaction with her hospital stay and asked this RN KATHIE to speak with her dtr. Spoke with dtr, provided her with the patient advocate phone number. She states she is performing pt wound care without difficulty. She has not yet made her follow up appts with or . She states is out of the office today and she needs to speak with her directly. Continued to listen to patient and dtr's concerns and provide support.
== END 2020-12-24 14:36 | disposition home or self-care (01) | DRG 720 ==
LOC: ED 12-20 00:14 → MS3 12-20 01:32
PROVIDERS: Admitting Provider Internal Medicine; Emergency Provider Emergency Medicine; PCP Internal Medicine; Visit Provider Student in an Organized Health Care Education/Training Program
DX: A41.9 Sepsis, unspecified organism (principal); L03.116 Cellulitis of left lower limb; B96.89 Other specified bacterial agents as the cause of diseases classified elsewhere; Z16.29 Resistance to other single specified antibiotic; R00.0 Tachycardia, unspecified; J44.9 Chronic obstructive pulmonary disease, unspecified; M06.9 Rheumatoid arthritis, unspecified; K50.90 Crohn's disease, unspecified, without complications; K21.9 Gastro-esophageal reflux disease without esophagitis; I89.0 Lymphedema, not elsewhere classified; H91.93 Unspecified hearing loss, bilateral; G89.29 Other chronic pain; G62.9 Polyneuropathy, unspecified; D50.9 Iron deficiency anemia, unspecified; G43.909 Migraine, unspecified, not intractable, without status migrainosus; E66.01 Morbid (severe) obesity due to excess calories; Z68.45 Body mass index [BMI] 70 or greater, adult; E87.1 Hypo-osmolality and hyponatremia; E87.8 Other disorders of electrolyte and fluid balance, not elsewhere classified; Q79.60 Ehlers-Danlos syndrome, unspecified; Z86.16 Personal history of COVID-19; Z85.72 Personal history of non-Hodgkin lymphomas; Z86.718 Personal history of other venous thrombosis and embolism; Z87.442 Personal history of urinary calculi; Z79.899 Other long term (current) drug therapy
CPT/HCPCS: 36415; 80048; 80053; 80202; 82728; 83540; 83550; 83605; 83735; 84100; 84443; 85014; 85018; 85025; 87040; 87070; 87077; 87186; 87205; 87640; 87641; 93306; 94640; 97110; 97150; 97162; 97166; 97530; 99251; 99285; J2185; J7030; J7040; J7050; Q9957; A4216; C8929; G0463; J2405; J3490

== ENCOUNTER → 2021-10-12 | Outpatient (REF) | payer MEDICAID, SELFPAY ==
[2021-10-12 09:05] LABS: Absolute Lymphocyte Count 1.44 X10^3/uL (0.83-4.51); Absolute Neutrophil Count 8.9 X10^3/uL (2.0-7.7); Basophil# 0.03 X10^3/uL; Basophil% 0.3 % (0-1); Eosinophil# 0.37 X10^3/uL; Eosinophils% 3.2 % (0-5); Hematocrit 30.8 % (37-47); Hemoglobin 8.8 g/dL (12.0-15.0); Lymphocyte # 1.44 X10^3/ul (0.83-4.51); Lymphocyte % 12.5 % (19-41); Mean Corp Hgb Conc 28.6 g/dL (32-36); Mean Corpuscular Hgb 24.4 pg (27.0-32.0); Mean Corpuscular Volume 85.6 fL (81-99); Mean Platelet Vol. 10.8 fl (6.2-12.0); Monocyte# 0.69 X10^3/uL; NRBC Flagged by Analyzer 0 % (0-5); Neutrophil # 8.91 X10^3/uL (2.7-7.7); Platelet Count 274 K/mm3 (150-450); RBC Distribution Width CV 19.9 % (11.6-14.6); RBC Distribution Width SD 62.2 fl (35.1-43.9); White Blood Count 11.6 K/mm3 (4.4-11.0)
[2021-10-12 09:34] LABS: Anion Gap 5 (5-15); BUN 10 mg/dL (7-18); BUN/Creat Ratio 10.9 RATIO (10-20); Calcium,Total 9.8 mg/dL (8.5-10.1); Chloride 94 mmol/L (98-107); Creatinine, Serum 0.91 mg/dL (0.55-1.02); EST Glomerular Filtration Rate 71 mL/min (>60); Est Glom Filt Rate - Afr Amer 86 mL/min (>60); Glucose 115 mg/dL (74-106); Magnesium 1.9 mg/dL (1.6-2.6); Potassium 3.9 mmol/L (3.5-5.1); Sodium Level 135 mmol/L (136-145)
[2021-10-12 09:38] LABS: Vitamin B12 388 pg/mL (211-911); Vitamin D,25 Hydroxy 13.9 ng/mL
== END | disposition home or self-care (01) ==
LOC: OLS.SW1020 05:00
PROVIDERS: PCP Internal Medicine; Visit Provider Internal Medicine
DX: L03.90 Cellulitis, unspecified (principal); E55.9 Vitamin D deficiency, unspecified; Z02.2 Encounter for examination for admission to residential institution
CPT/HCPCS: 36415; 80048; 82306; 82607; 83735; 85025

== ENCOUNTER → 2021-10-18 | Outpatient (CLI) | payer MEDICAID, SELFPAY ==
[2021-10-18 11:06] LABS: Hematocrit 27.1 % (37-47); Hemoglobin 8.3 g/dL (12.0-15.0); Mean Corp Hgb Conc 30.6 g/dL (32-36); Mean Corpuscular Hgb 26.2 pg (27.0-32.0); Mean Corpuscular Volume 85.5 fL (81-99); Mean Platelet Vol. 10.4 fl (6.2-12.0); Platelet Count 230 K/mm3 (150-450); RBC Distribution Width SD 62.4 fl (35.1-43.9); Red Blood Count 3.17 M/mm3 (4.2-5.4); White Blood Count 10.2 K/mm3 (4.4-11.0)
[2021-10-18 11:20] LABS: ALB/GLOB Ratio 0.5 RATIO (0.9-2.4); AST(SGOT) 27 U/L (15-37); Alanine Aminotransfer ALT/SGPT 22 U/L (13-56); Albumin, Serum 2.7 g/dL (3.2-5.0); Alkaline Phosphatase 107 U/L (45-117); Anion Gap 5 (5-15); BUN 9 mg/dL (7-18); BUN/Creat Ratio 12.5 RATIO (10-20); CPK Total, Creatine Kinase 24 U/L (26-192); Calcium,Total 8.5 mg/dL (8.5-10.1); Chloride 95 mmol/L (98-107); Creatinine, Serum 0.72 mg/dL (0.55-1.02); EST Glomerular Filtration Rate 94 mL/min (>60); Est Glom Filt Rate - Afr Amer 113 mL/min (>60); Glucose 106 mg/dL (74-106); Potassium 3.2 mmol/L (3.5-5.1); Protein, Total 7.7 g/dL (6.4-8.2); Sodium Level 137 mmol/L (136-145)
== END | disposition home or self-care (01) ==
PROVIDERS: PCP Internal Medicine
DX: L03.119 Cellulitis of unspecified part of limb (principal); J96.11 Chronic respiratory failure with hypoxia; F41.9 Anxiety disorder, unspecified; J45.909 Unspecified asthma, uncomplicated
CPT/HCPCS: 80053; 82550; 85027

== ENCOUNTER → 2021-10-24 | Outpatient (CLI) | payer MEDICAID, SELFPAY ==
[2021-10-24 12:44] LABS: Hematocrit 29.9 % (37-47); Mean Corp Hgb Conc 30.1 g/dL (32-36); Mean Corpuscular Hgb 25.9 pg (27.0-32.0); Mean Corpuscular Volume 85.9 fL (81-99); Mean Platelet Vol. 10.1 fl (6.2-12.0); POSITIVE MORPHOLOGY YES; Platelet Count 284 K/mm3 (150-450); RBC Distribution Width CV 20.2 % (11.6-14.6); RBC Distribution Width SD 63.8 fl (35.1-43.9); Red Blood Count 3.48 M/mm3 (4.2-5.4); White Blood Count 11.6 K/mm3 (4.4-11.0)
[2021-10-24 13:00] LABS: ALB/GLOB Ratio 0.5 RATIO (0.9-2.4); AST(SGOT) 20 U/L (15-37); Alanine Aminotransfer ALT/SGPT 26 U/L (13-56); Albumin, Serum 2.8 g/dL (3.2-5.0); Alkaline Phosphatase 89 U/L (45-117); Anion Gap 5 (5-15); BUN 11 mg/dL (7-18); BUN/Creat Ratio 16.6 RATIO (10-20); CPK Total, Creatine Kinase 22 U/L (26-192); Calcium,Total 8.5 mg/dL (8.5-10.1); Chloride 94 mmol/L (98-107); Creatinine, Serum 0.66 mg/dL (0.55-1.02); EST Glomerular Filtration Rate 103 mL/min (>60); Est Glom Filt Rate - Afr Amer 124 mL/min (>60); Globulin 5.1 g/dL (2.2-4.2); Glucose 110 mg/dL (74-106); Potassium 3.6 mmol/L (3.5-5.1); Protein, Total 7.9 g/dL (6.4-8.2); Sodium Level 136 mmol/L (136-145)
[2021-10-24 14:18] LABS: Scan Indicated on CBC? Y/N YES- FLAGS NOTED
== END | disposition home or self-care (01) ==
PROVIDERS: PCP Internal Medicine
DX: F41.9 Anxiety disorder, unspecified (principal); J96.11 Chronic respiratory failure with hypoxia; R52 Pain, unspecified; L03.119 Cellulitis of unspecified part of limb; J45.909 Unspecified asthma, uncomplicated
CPT/HCPCS: 80053; 82550; 85027

== ENCOUNTER → 2021-10-31 | Outpatient (CLI) | payer MEDICAID, SELFPAY ==
[2021-10-31 12:40] LABS: Hematocrit 32.1 % (37-47); Hemoglobin 9.7 g/dL (12.0-15.0); Mean Corp Hgb Conc 30.2 g/dL (32-36); Mean Corpuscular Hgb 26.2 pg (27.0-32.0); Mean Corpuscular Volume 86.8 fL (81-99); Mean Platelet Vol. 10.1 fl (6.2-12.0); Platelet Count 285 K/mm3 (150-450); RBC Distribution Width CV 18.8 % (11.6-14.6); RBC Distribution Width SD 59.1 fl (35.1-43.9)
[2021-10-31 13:17] LABS: ALB/GLOB Ratio 0.5 RATIO (0.9-2.4); AST(SGOT) 20 U/L (15-37); Alanine Aminotransfer ALT/SGPT 21 U/L (13-56); Albumin, Serum 2.8 g/dL (3.2-5.0); Alkaline Phosphatase 94 U/L (45-117); Anion Gap 5 (5-15); BUN 10 mg/dL (7-18); BUN/Creat Ratio 14.4 RATIO (10-20); CPK Total, Creatine Kinase 17 U/L (26-192); Calcium,Total 8.7 mg/dL (8.5-10.1); Chloride 92 mmol/L (98-107); EST Glomerular Filtration Rate 97 mL/min (>60); Est Glom Filt Rate - Afr Amer 117 mL/min (>60); Globulin 5.3 g/dL (2.2-4.2); Glucose 100 mg/dL (74-106); Potassium 3.5 mmol/L (3.5-5.1); Protein, Total 8.1 g/dL (6.4-8.2); Sodium Level 137 mmol/L (136-145)
== END | disposition home or self-care (01) ==
PROVIDERS: PCP Internal Medicine
DX: F41.9 Anxiety disorder, unspecified (principal); J96.10 Chronic respiratory failure, unspecified whether with hypoxia or hypercapnia; L03.119 Cellulitis of unspecified part of limb; J45.909 Unspecified asthma, uncomplicated
CPT/HCPCS: 80053; 82550; 85027

== ENCOUNTER → 2021-11-07 | Outpatient (CLI) | payer MEDICAID, SELFPAY ==
[2021-11-07 13:06] LABS: Hematocrit 32.7 % (37-47); Mean Corp Hgb Conc 30.6 g/dL (32-36); Mean Corpuscular Hgb 26.3 pg (27.0-32.0); Mean Corpuscular Volume 86.1 fL (81-99); Mean Platelet Vol. 10.6 fl (6.2-12.0); Platelet Count 269 K/mm3 (150-450); RBC Distribution Width CV 18.8 % (11.6-14.6); White Blood Count 12.1 K/mm3 (4.4-11.0)
[2021-11-07 13:36] LABS: ALB/GLOB Ratio 0.5 RATIO (0.9-2.4); AST(SGOT) 16 U/L (15-37); Alanine Aminotransfer ALT/SGPT 19 U/L (13-56); Albumin, Serum 2.8 g/dL (3.2-5.0); Alkaline Phosphatase 93 U/L (45-117); Anion Gap 5 (5-15); BUN 14 mg/dL (7-18); BUN/Creat Ratio 19.2 RATIO (10-20); CPK Total, Creatine Kinase 16 U/L (26-192); Chloride 92 mmol/L (98-107); Creatinine, Serum 0.73 mg/dL (0.55-1.02); EST Glomerular Filtration Rate 92 mL/min (>60); Est Glom Filt Rate - Afr Amer 111 mL/min (>60); Globulin 5.2 g/dL (2.2-4.2); Glucose 122 mg/dL (74-106); Potassium 3.5 mmol/L (3.5-5.1); Sodium Level 136 mmol/L (136-145)
== END | disposition home or self-care (01) ==
PROVIDERS: PCP Internal Medicine
DX: F41.9 Anxiety disorder, unspecified (principal); J96.10 Chronic respiratory failure, unspecified whether with hypoxia or hypercapnia; L03.119 Cellulitis of unspecified part of limb; J45.909 Unspecified asthma, uncomplicated
CPT/HCPCS: 80053; 82550; 85027

== ENCOUNTER → 2021-11-14 | Outpatient (CLI) | payer MEDICAID, SELFPAY ==
[2021-11-14 12:36] LABS: Hematocrit 34.4 % (37-47); Hemoglobin 10.6 g/dL (12.0-15.0); Mean Corp Hgb Conc 30.8 g/dL (32-36); Mean Corpuscular Hgb 26.8 pg (27.0-32.0); Mean Corpuscular Volume 87.1 fL (81-99); Mean Platelet Vol. 10.2 fl (6.2-12.0); Platelet Count 297 K/mm3 (150-450); RBC Distribution Width CV 17.8 % (11.6-14.6); RBC Distribution Width SD 56.7 fl (35.1-43.9); Red Blood Count 3.95 M/mm3 (4.2-5.4); White Blood Count 11.9 K/mm3 (4.4-11.0)
[2021-11-14 13:03] LABS: BUN 11 mg/dL (7-18); Creatinine, Serum 0.98 mg/dL (0.55-1.02); EST Glomerular Filtration Rate 66 mL/min (>60); Glucose 163 mg/dL (74-106)
[2021-11-14 13:04] LABS: ALB/GLOB Ratio 0.6 RATIO (0.9-2.4); AST(SGOT) 19 U/L (15-37); Alanine Aminotransfer ALT/SGPT 19 U/L (13-56); Albumin, Serum 3.1 g/dL (3.2-5.0); Alkaline Phosphatase 94 U/L (45-117); Anion Gap 10 (5-15); BUN/Creat Ratio 11.3 RATIO (10-20); CPK Total, Creatine Kinase 24 U/L (26-192); Calcium,Total 8.9 mg/dL (8.5-10.1); Chloride 89 mmol/L (98-107); Est Glom Filt Rate - Afr Amer 79 mL/min (>60); Globulin 5.4 g/dL (2.2-4.2); Potassium 2.8 mmol/L (3.5-5.1); Protein, Total 8.5 g/dL (6.4-8.2); Sodium Level 136 mmol/L (136-145)
== END | disposition home or self-care (01) ==
PROVIDERS: PCP Internal Medicine
DX: F41.9 Anxiety disorder, unspecified (principal); J96.10 Chronic respiratory failure, unspecified whether with hypoxia or hypercapnia; L03.119 Cellulitis of unspecified part of limb; J45.909 Unspecified asthma, uncomplicated
CPT/HCPCS: 80053; 82550; 85027

== ENCOUNTER → 2021-11-21 | Outpatient (CLI) | payer MEDICAID, SELFPAY ==
[2021-11-21 13:09] LABS: Hematocrit 34.7 % (37-47); Hemoglobin 10.8 g/dL (12.0-15.0); Mean Corp Hgb Conc 31.1 g/dL (32-36); Mean Corpuscular Hgb 26.9 pg (27.0-32.0); Mean Corpuscular Volume 86.3 fL (81-99); Mean Platelet Vol. 10.9 fl (6.2-12.0); Platelet Count 312 K/mm3 (150-450); RBC Distribution Width CV 17.2 % (11.6-14.6); RBC Distribution Width SD 55.2 fl (35.1-43.9); Red Blood Count 4.02 M/mm3 (4.2-5.4); White Blood Count 13.8 K/mm3 (4.4-11.0)
[2021-11-21 13:23] LABS: ALB/GLOB Ratio 0.6 RATIO (0.9-2.4); AST(SGOT) 17 U/L (15-37); Alanine Aminotransfer ALT/SGPT 19 U/L (13-56); Albumin, Serum 3.1 g/dL (3.2-5.0); Alkaline Phosphatase 97 U/L (45-117); Anion Gap 10 (5-15); BUN 13 mg/dL (7-18); BUN/Creat Ratio 14.5 RATIO (10-20); CPK Total, Creatine Kinase 19 U/L (26-192); Calcium,Total 9.3 mg/dL (8.5-10.1); Chloride 90 mmol/L (98-107); EST Glomerular Filtration Rate 72 mL/min (>60); Est Glom Filt Rate - Afr Amer 88 mL/min (>60); Globulin 5.6 g/dL (2.2-4.2); Glucose 169 mg/dL (74-106); Potassium 3.1 mmol/L (3.5-5.1); Protein, Total 8.7 g/dL (6.4-8.2); Sodium Level 136 mmol/L (136-145)
== END | disposition home or self-care (01) ==
PROVIDERS: PCP Internal Medicine
DX: F41.9 Anxiety disorder, unspecified (principal); J96.10 Chronic respiratory failure, unspecified whether with hypoxia or hypercapnia; L03.119 Cellulitis of unspecified part of limb; J45.909 Unspecified asthma, uncomplicated
CPT/HCPCS: 80053; 82550; 85027

== ENCOUNTER → 2021-11-28 | Outpatient (CLI) | payer MEDICAID, SELFPAY ==
[2021-11-28 12:34] LABS: Hematocrit 34.2 % (37-47); Hemoglobin 10.4 g/dL (12.0-15.0); Mean Corp Hgb Conc 30.4 g/dL (32-36); Mean Corpuscular Hgb 26.7 pg (27.0-32.0); Mean Corpuscular Volume 87.7 fL (81-99); Mean Platelet Vol. 10.6 fl (6.2-12.0); Platelet Count 296 K/mm3 (150-450); RBC Distribution Width CV 16.4 % (11.6-14.6); RBC Distribution Width SD 52.4 fl (35.1-43.9); White Blood Count 11.5 K/mm3 (4.4-11.0)
[2021-11-28 12:53] LABS: ALB/GLOB Ratio 0.5 RATIO (0.9-2.4); AST(SGOT) 15 U/L (15-37); Alanine Aminotransfer ALT/SGPT 15 U/L (13-56); Albumin, Serum 2.8 g/dL (3.2-5.0); Alkaline Phosphatase 95 U/L (45-117); Anion Gap 5 (5-15); BUN 16 mg/dL (7-18); BUN/Creat Ratio 20.5 RATIO (10-20); CPK Total, Creatine Kinase 18 U/L (26-192); Calcium,Total 9.3 mg/dL (8.5-10.1); Chloride 91 mmol/L (98-107); Creatinine, Serum 0.78 mg/dL (0.55-1.02); EST Glomerular Filtration Rate 85 mL/min (>60); Est Glom Filt Rate - Afr Amer 103 mL/min (>60); Globulin 5.1 g/dL (2.2-4.2); Glucose 115 mg/dL (74-106); Potassium 3.1 mmol/L (3.5-5.1); Protein, Total 7.9 g/dL (6.4-8.2); Sodium Level 138 mmol/L (136-145)
== END | disposition home or self-care (01) ==
PROVIDERS: PCP Internal Medicine
DX: F41.9 Anxiety disorder, unspecified (principal); J96.10 Chronic respiratory failure, unspecified whether with hypoxia or hypercapnia; L03.119 Cellulitis of unspecified part of limb; J45.909 Unspecified asthma, uncomplicated
CPT/HCPCS: 80053; 82550; 85027

== ENCOUNTER → 2021-12-05 | Outpatient (CLI) | payer MEDICAID, SELFPAY ==
[2021-12-05 12:49] LABS: Hematocrit 34.8 % (37-47); Hemoglobin 10.9 g/dL (12.0-15.0); Mean Corp Hgb Conc 31.3 g/dL (32-36); Mean Corpuscular Hgb 27.8 pg (27.0-32.0); Mean Corpuscular Volume 88.8 fL (81-99); Mean Platelet Vol. 10.6 fl (6.2-12.0); Platelet Count 247 K/mm3 (150-450); RBC Distribution Width CV 16.3 % (11.6-14.6); RBC Distribution Width SD 52.7 fl (35.1-43.9); Red Blood Count 3.92 M/mm3 (4.2-5.4); White Blood Count 10.2 K/mm3 (4.4-11.0)
[2021-12-05 13:28] LABS: ALB/GLOB Ratio 0.6 RATIO (0.9-2.4); AST(SGOT) 22 U/L (15-37); Alanine Aminotransfer ALT/SGPT 21 U/L (13-56); Albumin, Serum 2.9 g/dL (3.2-5.0); Alkaline Phosphatase 97 U/L (45-117); Anion Gap 8 (5-15); BUN 10 mg/dL (7-18); BUN/Creat Ratio 11.8 RATIO (10-20); CPK Total, Creatine Kinase 22 U/L (26-192); Calcium,Total 9.1 mg/dL (8.5-10.1); Chloride 94 mmol/L (98-107); Creatinine, Serum 0.85 mg/dL (0.55-1.02); EST Glomerular Filtration Rate 77 mL/min (>60); Est Glom Filt Rate - Afr Amer 93 mL/min (>60); Globulin 5.2 g/dL (2.2-4.2); Glucose 135 mg/dL (74-106); Potassium 3.2 mmol/L (3.5-5.1); Protein, Total 8.1 g/dL (6.4-8.2); Sodium Level 138 mmol/L (136-145)
== END | disposition home or self-care (01) ==
PROVIDERS: PCP Internal Medicine
DX: F41.9 Anxiety disorder, unspecified (principal); J96.10 Chronic respiratory failure, unspecified whether with hypoxia or hypercapnia; L03.119 Cellulitis of unspecified part of limb; J45.909 Unspecified asthma, uncomplicated
CPT/HCPCS: 80053; 82550; 85027

== ENCOUNTER → 2022-05-01 | Outpatient (CLI) | payer MEDICAID, SELFPAY ==
[2022-05-01 11:34] LABS: Absolute Lymphocyte Count 1.92 X10^3/uL (0.83-4.51); Absolute Neutrophil Count 9.6 X10^3/uL (2.0-7.7); Basophil# 0.03 X10^3/uL; Basophil% 0.2 % (0-1); Eosinophil# 0.33 X10^3/uL; Eosinophils% 2.5 % (0-5); Hemoglobin 11.3 g/dL (12.0-15.0); Lymphocyte # 1.92 X10^3/ul (0.83-4.51); Lymphocyte % 14.8 % (19-41); Mean Corp Hgb Conc 29.7 g/dL (32-36); Mean Corpuscular Hgb 24.6 pg (27.0-32.0); Mean Corpuscular Volume 82.6 fL (81-99); Mean Platelet Vol. 10.9 fl (6.2-12.0); Monocyte% 7.7 % (0-10); NRBC Flagged by Analyzer 0 % (0-5); Neutrophil # 9.62 X10^3/uL (2.7-7.7); Neutrophil % 74.3 % (47-70); Platelet Count 324 K/mm3 (150-450); RBC Distribution Width CV 16.3 % (11.6-14.6); RBC Distribution Width SD 49.1 fl (35.1-43.9)
[2022-05-01 12:00] LABS: Vitamin B12 524 pg/mL (211-911)
[2022-05-01 12:44] LABS: BUN 30 mg/dL (7-18); BUN/Creat Ratio 29.4 RATIO (10-20); Calcium,Total 10.4 mg/dL (8.5-10.1); Carbon Dioxide > 45.0 mmol/L (21.0-32.0); Chloride 77 mmol/L (98-107); Creatinine, Serum 1.02 mg/dL (0.55-1.02); EST Glomerular Filtration Rate 62 mL/min (>60); Est Glom Filt Rate - Afr Amer 75 mL/min (>60); Ferritin 57 ng/mL (8-252); Glucose 122 mg/dL (74-106); Iron 41 ug/dL (50-170); Iron Binding Capacity,Total 351 ug/dL (250-450); Magnesium 1.9 mg/dL (1.6-2.6); Potassium 2.7 mmol/L (3.5-5.1); Sodium Level 132 mmol/L (136-145)
== END | disposition home or self-care (01) ==
LOC: LAB 08:51
PROVIDERS: PCP Internal Medicine; Referring Provider Internal Medicine; Visit Provider Internal Medicine
DX: Z79.899 Other long term (current) drug therapy (principal); D64.9 Anemia, unspecified; R25.1 Tremor, unspecified
CPT/HCPCS: 36415; 80048; 82607; 82728; 82746; 83540; 83550; 83735; 85025

== ENCOUNTER 2023-05-23 14:26 | Inpatient (IN) | payer MEDICAID, SELFPAY ==
[2023-05-23] VITALS (38 sets, daily range): BP systolic 105–148; BP diastolic 54–90; PULSE 105–116; RESP 12–33; TEMP 36.5–36.8; O2SAT 91–100; BMI 86.3; BMI 84.3
--- NOTE | 2023-05-23 15:23 | EKG12_ITS ---
Test Reason : Blood Pressure : / mmHG Vent. Rate : 108 BPM Atrial Rate : 108 BPM P-R Int : 150 ms QRS Dur : 078 ms QT Int : 314 ms P-R-T Axes : 055 055 032 degrees QTc Int : 420 ms Sinus tachycardia Otherwise normal ECG Confirmed by Kory Bundy ([id number]), editorial director ELIZABETH SMITH ([id number]) on 05/27/2023 7:05:16 AM Referred By: Confirmed By:Kory Bundy
[2023-05-23 15:40] LABS: Absolute Lymphocyte Count 1.18 X10^3/uL (0.83-4.51); Absolute Neutrophil Count 9.9 X10^3/uL (2.0-7.7); Basophil# 0.03 X10^3/uL; Basophil% 0.2 % (0-1); Eosinophil# 0.31 X10^3/uL; Eosinophils% 2.5 % (0-5); Hematocrit 32.5 % (37-47); Hemoglobin 8.5 g/dL (12.0-15.0); Lymphocyte # 1.18 X10^3/ul (0.83-4.51); Lymphocyte % 9.6 % (19-41); Mean Corp Hgb Conc 26.2 g/dL (32-36); Mean Corpuscular Hgb 21.1 pg (27.0-32.0); Mean Corpuscular Volume 80.6 fL (81-99); Mean Platelet Vol. 9.4 fl (6.2-12.0); Monocyte# 0.71 X10^3/uL; Monocyte% 5.8 % (0-10); NRBC Flagged by Analyzer 0.3 % (0-5); Neutrophil # 9.94 X10^3/uL (2.7-7.7); Neutrophil % 80.8 % (47-70); Platelet Count 326 K/mm3 (150-450); RBC Distribution Width CV 18.9 % (11.6-14.6); RBC Distribution Width SD 54.4 fl (35.1-43.9); Red Blood Count 4.03 M/mm3 (4.2-5.4); White Blood Count 12.3 K/mm3 (4.4-11.0)
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
--- NOTE | 2023-05-23 15:45 | RAD_ITS ---
EXAM: XR CHEST, 2 VIEWS CLINICAL INDICATION: SOB TECHNIQUE: Frontal and lateral views of the chest. COMPARISON: 12/06/2020 FINDINGS: LUNGS AND PLEURAL SPACES: Lower lobe infiltrates suggesting pneumonia. No pneumothorax. No effusion. HEART: Unremarkable. Cardiac silhouette not enlarged. MEDIASTINUM: Central airways and mediastinal contour are unremarkable. BONES/JOINTS: Unremarkable. No acute fracture. SOFT TISSUES: Unremarkable. RAD/Chest PA and Lateral IMPRESSION: Lower lobe infiltrates suggesting pneumonia. Electronically Signed: Triston Stapleton MD at 16:04 EST ,
[2023-05-23 16:02] LABS: Anion Gap -2 (5-15); BUN 12 mg/dL (7-18); BUN/Creat Ratio 14.9 RATIO (10-20); Calcium,Total 9.4 mg/dL (8.5-10.1); Chloride 96 mmol/L (98-107); EST Glomerular Filtration Rate 81 mL/min (>60); Est Glom Filt Rate - Afr Amer 98 mL/min (>60); Estimated Creatinine Clearance 183.91 ml/min; Glucose 111 mg/dL (74-106); Sodium Level 137 mmol/L (136-145); Troponin-I HS 4 pg/mL (3.0-54.0)
[2023-05-23 16:04] LABS: BNP,B-Type NATRIURETIC PEPTIDE 2.3 pg/mL (0-100)
[2023-05-23 16:40] LABS: Allen Test Positive; Base Excess 14 mmol/L (-2 to +2); Bicarbonate 41.1 mmol/L (22-26); Blood Gas Specimen Type ART; Mode Not entered; O2 Delivery Device Cannula; PO2 70 mmHG (75-100); SITE L Radial; SO2 90 % (95-99); Total Carbon Dioxide 44 mmol/L; pH 7.27 (7.35-7.45)
--- NOTE | 2023-05-23 16:50 | CPS ---
Critical ABG results given to Dr. Lancaster at [id number]
[2023-05-23] MEDS: Lorazepam 2 MG/ML WCH Syringe 0.5 MG IV (16:55)
[2023-05-23] MEDS: Furosemide 40 MG/4 ML Vial IV (16:55)
--- NOTE | 2023-05-23 16:57 | HP.PCM_ITS ---
HPI - General General Date of Admission: 05/23/23 Date of Service: 05/23/23 Chief Complaint: shortness of breath HPI Narrative HELGA JENSEN, is a 47 F with a PMH as outlined who presents via the ED on 05/23/2023 with a complaint of lower extremity edema. She said she had been dealing with cellulitis of both lower extremities on outpatient basis for several weeks, but didn't feel it was improving. She still had redness of her lower extremities. She denied any fever, chills, cough, chest pain, palpitations, dizziness, nausea, vomiting or any other symptoms. She does wear oxygen at home and says she usually wears 1-2L of oxygen at home, and says her oxygen requirements increase to 2-3 with exertion. Vitals in the ED were BP of 140/85, OK of 111, RR of 26 and temp of 97.9F with oxygen sats of 99% on 4L of oxygen. CBC showed hemoglobin of 8.5 with WBC of 12.3 and platelets of 326. ABG showed pH of 7.27 with pCO2 of 89 and bicarb of 41.1 and pO2 of 70. Chemistry was largely unremarkable apart from bicarb of 43. Chest x-ray showed bilateral lower lobe infiltrates suggesting pneumonia. She is being admitted to be managed for acute hypercapnic respiratory failure likely due to undiagnosed obesity hypoventilation syndrome and OFELIA. [facility] Medical History Anemia Asthma BMI 70 and over, adult Cancer Chronic pain Crohn disease DVT (deep venous thrombosis) Carole-Danlos syndrome GERD (gastroesophageal reflux disease) Hearing loss, left Hearing loss, right Irregular heart beat Kidney disease Kidney stones Lumbar spondylosis Lymphedema Migraines Morbid obesity Non-smoker Obesity On home oxygen therapy Renal atrophy Rheumatoid arthritis Splenomegaly T-cell lymphoma Home Medications acetaminophen 650 mg tablet,extended release 1,300 mg PO Q12H PAIN 10/02/20 [Hi story Last Taken 12/19/20] albuterol sulfate 90 mcg/actuation breath activated powder inhaler 1 inh inhalation Q6H PRN Wheezing 10/02/20 [History Last Taken 12/19/20] ciclesonide 80 mcg/actuation aerosol inhaler 1 puff inhalation BID SOB 10/02/20 [History Last Taken 12/19/20] duloxetine 20 mg capsule,delayed release sprinkle 20 mg PO BID DEPRESSION 10/02/20 [History Last Taken 12/19/20] gabapentin 300 mg capsule 300 mg PO TID PRN muscle spasms 10/02/20 [History Last Taken 12/18/20] glucosamine 750 [id number] no1 644 mg-C 30 mg-jamie 1 mg tablet (Osteo Bi-Flex Triple Strength) 2 tab PO DAILY SUPPLEMENT 10/02/20 [History Last Taken 12/19/20] ibuprofen 200 mg tablet 400 mg PO DAILY PRN Pain 10/02/20 [History Last Taken 12/05/20 22:00] montelukast 10 mg tablet 10 mg PO BID ALLERGIES 10/02/20 [History Last Taken 12/19/20] elderberry fruit 200 mg capsule 200 mg PO DAILY supplement 12/05/20 [History Last Taken 12/19/20] mupirocin 2 % topical ointment 1 applic topical DAILY antibiotic 12/19/20 [History Last Taken 12/19/20] doxycycline hyclate 100 mg capsule 100 mg PO BID 05/23/23 [History Last Taken Unknown] Allergy/AdvReac Type Severity Reaction Status Date / Time Nitrate Analogues Allergy Unknown throat/nose Verified 05/23/23 14:41 swelling adhesive tape Allergy Rash Verified 05/23/23 14:41 aspirin Allergy Angioedema Verified 05/23/23 14:41 benzonatate Allergy Shortness Verified 05/23/23 14:41 of breath cephalexin Allergy Rash Verified 05/23/23 14:41 coconut oil Allergy throat Verified 05/23/23 14:41 swells copper Allergy skin peels Verified 05/23/23 14:41 Environmental Allergies: Allergy Rash Verified 05/23/23 14:41 Uncoded formaldehyde Allergy Anaphylaxis Verified 05/23/23 14:41 gold Au 198 Allergy Rash Verified 05/23/23 14:41 Iodine and Iodide Containing Allergy Anaphylaxis Verified 05/23/23 14:41 Produc latex Allergy Anaphylaxis Verified 05/23/23 14:41 mold Allergy Anaphylaxis Verified 05/23/23 14:41 nickel Allergy Rash Verified 05/23/23 14:41 nitrofurantoin Allergy Anaphylaxis Verified 05/23/23 14:41 palm oil Allergy Hives Verified 05/23/23 14:41 Penicillins Allergy Rash Verified 05/23/23 14:41 soy Allergy Diarrhea Verified 05/23/23 14:41 Sulfa (Sulfonamide Allergy Rash Verified 05/23/23 14:41 Antibiotics) topiramate Allergy goes Verified 05/23/23 14:41 crazy aspartame AdvReac kidneyfailu Verified 05/23/23 14:41 re lactose AdvReac Nausea Verified 05/23/23 14:41 morphine AdvReac confusion Verified 05/23/23 14:41 Family History Father Heart disease Mother Diabetes Surgical History History of partial hysterectomy Hx of pelvic surgery Previous section Social History household members: children Smoking Status: Never smoker alcohol intake: current alcohol intake frequency: holidays/special occasions only substance use type: does not use ROS Review of Systems ROS Unobtainable: Denies due to encephalopathy Constitutional Constitutional: Reports fatigue and malaise; Denies anorexia, change in weight, chills, fever(s), weakness or weight gain Eyes Eyes: Denies change in vision ENT HEENT: Denies dysphagia, headache(s) or sore throat Cardiovascular Cardiovascular: Reports edema; Denies chest pain, orthopnea, palpitations, paroxysmal nocturnal dyspnea or syncope Respiratory/Chest Respiratory/Chest: Reports shortness of breath at rest and shortness of breath with exertion; Denies cough or wheezing Gastrointestinal Gastrointestinal: Denies abdominal pain, nausea or vomiting Genitourinary Genitourinary: Denies dysuria Neurologic Neurologic: Denies confusion, dizziness, focal weakness, headache(s), lack of coordination or numbness Psychiatric Psychiatric: Denies anxiety Vital Signs Vital Signs Vital Signs: 05/23/23 14:31 05/23/23 14:33 05/23/23 14:34 Temperature 98.1 F 98.1 F Temperature Source Oral Oral Pulse Rate 111 H 111 H Respiratory Rate 25 H 25 H Respiratory Effort Short of Breath Respiratory Depth Respiratory Pattern Tachypnea Blood Pressure 136/80 H 136/80 H Blood Pressure Mean 98 98 Pulse Ox 97 96 Oxygen Delivery Method Nasal Cannula Nasal Cannula Oxygen Flow Rate (L/min) 3 3 05/23/23 14:36 05/23/23 15:33 05/23/23 15:40 Temperature Temperature Source Pulse Rate 109 H 109 H Respiratory Rate 26 H 25 H Respiratory Effort Short of Breath Respiratory Depth Shallow Respiratory Pattern Tachypnea Blood Pressure Blood Pressure Mean Pulse Ox 97 97 Oxygen Delivery Method Nasal Cannula Oxygen Flow Rate (L/min) 3 05/23/23 15:46 05/23/23 15:53 05/23/23 16:00 Temperature Temperature Source Pulse Rate 108 H 105 H Respiratory Rate 20 H 24 H Respiratory Effort Respiratory Depth Respiratory Pattern Blood Pressure 105/63 128/78 H Blood Pressure Mean 77 94 Pulse Ox 97 96 Oxygen Delivery Method Room Air Room Air Oxygen Flow Rate (L/min) 05/23/23 16:10 05/23/23 16:15 05/23/23 16:20 Temperature Temperature Source Pulse Rate 111 H 113 H 105 H Respiratory Rate 16 20 H 17 Respiratory Effort Respiratory Depth Respiratory Pattern Blood Pressure 147/77 H Blood Pressure Mean 98 Pulse Ox 97 Oxygen Delivery Method Room Air Oxygen Flow Rate (L/min) Weight Weight: 534 lb 9.935 oz Body Mass Index (BMI) 86.3 Physical Exam Const alert, oriented x3 and no apparent distress Constitutional Narrative: super morbid obesity, with BMI of 86.3 General Appearance: cooperative HEENT normocephalic, head/scalp atraumatic, moist oral mucous membranes and oropharynx normal Eyes PERRL and EOMs intact bilaterally Neck no lymphadenopathy, supple and no JVD Lymph Lymphatic: no lymphadenopathy noted and no lymphedema noted Resp Resp Narrative: diminished breath sounds bibasally, no wheezes or crackles. on 4L of oxygen by nasal canula Cardio regular rate, regular rhythm, S1 normal heart sound, S2 normal heart sound and no murmurs GI normal to inspection, nondistended, normoactive bowel sounds, soft to palpation and non-tender GI Narrative: obese abdomen Extremity Extremity Narrative: bilateral LE lymphedema. Has some erythema of lower extremities, with mild differential warmth. Per patient, the redness has improved significantly, no tenderness. General Extremity: edema Skin Skin Narrative: as under extremity Neuro CN's II-XII intact bilaterally, no focal motor deficits and no sensory deficits noted Motor Exam: strength 5/5 throughout and general weakness Psych thought process normal, cooperative and affect normal Appearance: appropriate Results Lab / Micro Data 05/23/23 15:29 05/23/23 15:29 Labs: Laboratory Results - last 24 hr 05/23/23 15:29: WBC 12.3 H, RBC 4.03 L, Hgb 8.5 L, Hct 32.5 L, MCV 80.6 L, MCH 21.1 L, MCHC 26.2 L, RDW Std Deviation 54.4 H, RDW Coeff of Fanny 18.9 H, Plt C ount 326, MPV 9.4, Immature Gran % (Auto) 1.100 H, Neut % (Auto) 80.8 H, Lymph % (Auto) 9.6 L, Dixie % (Auto) 5.8, Eos % (Auto) 2.5, Baso % (Auto) 0.2, Absolute Neuts (auto) 9.9 H, Absolute Lymphs (auto) 1.18, Nucleated RBC % 0.3, Sodium 137, Potassium 4.0, Chloride 96 L, Carbon Dioxide 43.0 H, Anion Gap -2 L, BUN 12, Creatinine 0.80, Estim Creat Clear Calc 183.91, Est GFR (MDRD) Af Amer 98, Est GFR (MDRD) Non-Af 81, BUN/Creatinine Ratio 14.9, Glucose 111 H, Calcium 9.4, Troponin I High Sens 4, B-Natriuretic Peptide 2.3 ABG Data ABG results: ABG 05/23/23 16:36 Specimen Type ART Sample Site L Radial pH 7.27 L Bicarbonate Actual 41.1 H Total CO2 44 Base Excess 14 H O2 Saturation 90 L O2 % 3.0 ABG pCO2 89.0 H* ABG pO2 70 L Hayes Test Positive O2 Delivery Device Cannula Vent Mode Not entered Crit Call To/Read Back Yes Imaging Radiology Impression Chest X-Ray 05/23/23 15:45 IMPRESSION: Lower lobe infiltrates suggesting pneumonia. Electronically Signed: Triston Stapleton MD at 16:04 EST Reading Location ID and State: [id number] / [place] , Service support , Assessment & Plan Assessment/Plan (1) Lymphedema: (2) Fluid overload: (3) Morbid obesity: PLAN: Plan #Acute hypercapnic respiratory failure due to undiagnosed probable obesity hypoventilation syndrome and OFELIA * ABG done on admission showed severe hypercapnia with pCO2 of 89. * Came in because of lower extremity edema. BNP is not elevated and was only 2.3. * Placed on BiPAP. Check ABG after 1 hour to see if hypercapnia is improving. * Weaned down to oxygen by nasal cannula as tolerated. Titrate oxygen to maintain saturation above 90%. * Breathing treatments bronchodilators. * Will diurese with IV Lasix on account of the lymphedema. * #Bilateral lower extremity lymphedema * Has some mild lower extremity erythema which is getting better. Minimal d ifferential warmth and tenderness * apply CHANO wraps to lower extremities * hold off on antibiotics for now as she has been on doxycline for over a week and says the redness has improved markedly. * #Depression: on duloxetine #Recent cellulitis of lower extremities * on doxycyline. To complete course. * redness of lower extremities has improved markedly. * #Super morbid obesity * BMI is eight 6.3. He is acute care, expected recovery and prognosis. * DVT prophylaxis: lovenox Code status: full code * Patient counseled extensively about different types of CODE STATUS including full code, DNR CCA and DNR CCA. Patient elects to be full code. * Total [id number] time: 17 minutes. Charges/Coding Visit Charges Inpatient E&M: 83145 Init Hosp L3 Procedures Hospitalists Procedures: 88458 Advncd Care Plan 30 Min
--- NOTE | 2023-05-23 17:41 | ED.RN ---
1729: I attempted to place patient in a gown, pt. refused a gown it won't fit, this one works fine. Renzo Ramirez at bedside. The patient was educated about the need for a gown due to medical access, admission, and safety. Once again, the patient refused being placed in a gown. She is in her [facility] at this time.
--- NOTE | 2023-05-23 17:52 | ED.RN ---
1734: multiple IV attempts made to obtain an additional IV access site by this nurse and Nabil Doherty. 1753: Ultrasound trained nurse at the bedside to try for access.
--- NOTE | 2023-05-23 18:17 | CPS ---
Bipap attempted x 2 at this time, patient unable to tolerate.
--- NOTE | 2023-05-23 18:24 | CPS ---
tried to place pt on bipap at this time. Pt stated she has bad PTSD and cant have anything on her face. Talked to Dr Lancaster about giving her meds to keep her calm for the bipap. ordered meds, waiting for patient to have another line placed so meds can be given.
--- NOTE | 2023-05-23 18:24 | ED.RN ---
182: patient family member Savannah Self called for update. Notified about patients admission.
[2023-05-23] MEDS: Gabapentin 300 MG Capsule PO (22:07)
[2023-05-23] MEDS: Dicyclomine 10 MG Capsule 20 MG PO (22:08)
[2023-05-23] MEDS: DULoxetine Hcl 20 MG Capsule PO (22:08)
[2023-05-23] MEDS: Montelukast 10 MG Tablet PO (22:09)
[2023-05-23] MEDS: Doxycycline 100 MG CAPSULE PO (22:09)
[2023-05-23] MEDS: Albuterol 2.5 MG/3 ML VIAL.NEB. INHALATION (22:46)
[2023-05-23] MEDS: Budesonide Respules 0.5 MG/2 ML AMPUL.NEB. INHALATION (22:46)
--- NOTE | 2023-05-23 23:55 | CPS ---
BiPAP attempted with nasal mask this time, pt is still unable to tolerate.
[2023-05-24] VITALS (7 sets, daily range): BP systolic 120–133; BP diastolic 47–75; PULSE 106–115; RESP 16–28; TEMP 36.5–36.9; O2SAT 92–97
[2023-05-24] MEDS: 0.9% Saline Lock 10 ML Syringe IV ×3 (00:41→13:44)
[2023-05-24] MEDS: Ondansetron 4 MG/2 ML Vial IV (00:41)
[2023-05-24] MEDS: Acetaminophen 325 MG Tablet 650 MG PO (00:41)
[2023-05-24] MEDS: HYDROcodone Bitartrate/Apap 5/325 Tablet PO ×4 (02:44→23:32)
[2023-05-24 03:08] LABS: Absolute Lymphocyte Count 0.95 X10^3/uL (0.83-4.51); Absolute Neutrophil Count 10.4 X10^3/uL (2.0-7.7); Basophil# 0.02 X10^3/uL; Basophil% 0.2 % (0-1); Eosinophil# 0.27 X10^3/uL; Eosinophils% 2.2 % (0-5); Hematocrit 28.3 % (37-47); Hemoglobin 7.7 g/dL (12.0-15.0); Lymphocyte # 0.95 X10^3/ul (0.83-4.51); Lymphocyte % 7.7 % (19-41); Mean Corp Hgb Conc 27.2 g/dL (32-36); Mean Corpuscular Hgb 21.6 pg (27.0-32.0); Mean Corpuscular Volume 79.5 fL (81-99); Mean Platelet Vol. 8.6 fl (6.2-12.0); Monocyte# 0.66 X10^3/uL; Monocyte% 5.3 % (0-10); NRBC Flagged by Analyzer 0.3 % (0-5); Neutrophil % 83.9 % (47-70); Platelet Count 267 K/mm3 (150-450); RBC Distribution Width CV 18.6 % (11.6-14.6); RBC Distribution Width SD 53.8 fl (35.1-43.9); Red Blood Count 3.56 M/mm3 (4.2-5.4); White Blood Count 12.4 K/mm3 (4.4-11.0)
[2023-05-24 03:26] LABS: Anion Gap 2 (5-15); BUN 12 mg/dL (7-18); Calcium,Total 8.7 mg/dL (8.5-10.1); Chloride 94 mmol/L (98-107); Creatinine, Serum 0.71 mg/dL (0.55-1.02); EST Glomerular Filtration Rate 95 mL/min (>60); Est Glom Filt Rate - Afr Amer 115 mL/min (>60); Estimated Creatinine Clearance 203.78 ml/min; Glucose 154 mg/dL (74-106); Potassium 3.9 mmol/L (3.5-5.1); Sodium Level 136 mmol/L (136-145)
[2023-05-24 03:30] LABS: Troponin-I HS 5 pg/mL (3.0-54.0)
[2023-05-24 06:07] LABS: Troponin-I HS 5 pg/mL (3.0-54.0)
[2023-05-24] MEDS: Dicyclomine 10 MG Capsule 20 MG PO ×4 (06:46→21:45)
[2023-05-24] MEDS: Budesonide Respules 0.5 MG/2 ML AMPUL.NEB. INHALATION ×2 (07:21→19:26)
[2023-05-24 09:53] LABS: Troponin-I HS 4 pg/mL (3.0-54.0)
[2023-05-24] MEDS: Mupirocin Ointment 22gm Tube 1 APPLIC TOPICAL (11:04)
[2023-05-24] MEDS: DULoxetine Hcl 20 MG Capsule PO ×2 (11:05→21:45)
[2023-05-24] MEDS: Doxycycline 100 MG CAPSULE PO (11:06)
[2023-05-24] MEDS: Montelukast 10 MG Tablet PO ×2 (11:06→21:46)
[2023-05-24] MEDS: Furosemide 40 MG/4 ML Vial IV (11:06)
--- NOTE | 2023-05-24 13:04 | PCM.PN.HOSP ---
Reason for Visit Reason for Visit: Diagnoses Morbid (severe) obesity due to excess calories (05/23/23) Fluid overload, unspecified (05/23/23) Lymphedema, not elsewhere classified (05/23/23) Subjective Subjective Patient presented to the ED yesterday with concern for bilateral lower extremity cellulitis. Noted that she had been seen at the [facility] ED for this concern on 05/18 and was prescribed p.o. doxycycline, but she did not feel like she had any improvement with this. Has history of super morbid obesity and lymphedema, and she noted that she also felt she had been retaining fluid over the past few weeks. She has a history of chronic respiratory failure on 2 to 3 L nasal cannula. She was noted to be tachycardic and tachypneic in the ED, and ABG showed decompensated respiratory acidosis and hypoxia. She was also noted to be weaker than her baseline and unable to ambulate at home. She was started on IV Lasix and placed on BiPAP at that time and admitted for further management. Patient seen at bedside this morning. She was sitting up comfortably in bed, conversing normally and in no acute distress. She was breathing comfortably on 3 L nasal cannula with oxygen saturations in the low to mid 90s. Patient states today that she feels about back to her baseline from a breathing standpoint. Her main concerns this morning are her continued bilateral lower leg swelling and general concern for mild volume overload. She states that her legs have not gotten any better on the p.o. doxycycline, and she is concerned that she may have an infection that is not being treated appropriately. She did have decent urine output with the dose of IV Lasix and was happy to continue with IV Lasix for now. She was able to ambulate from the bed to the bedside commode with assistance of therapy but does feel weaker than her baseline. She otherwise denies any fevers or chills. No other acute concerns this morning. Objective Data Objective Data Vital Signs: Vital Signs Temp Pulse Resp BP Pulse Ox O2 Del Method O2 Flow Rate 98.5 F 111 H 16 120/47 L 96 Nasal Cannula 3 05/24/23 12:17 05/24/23 12:17 05/24/23 12:17 05/24/23 12:17 05/24/23 12:17 05/24/23 12:17 05/24/23 12:17 FiO2 35 05/23/23 16:40 Oxygen Flow Rate (L/min) 3 Oxygen Delivery Method Nasal Cannula Weight: 237 kg Body Mass Index (BMI) 84.3 Intake & Output: Intake and Output for Last 24 Hours 05/22/23 05/23/23 05/24/23 23:59 23:59 23:59 Output Total 3800 / 3800 925 / 925 Balance -3800 / -3800 -925 / -925 Lab / Micro Data 05/24/23 02:53 05/24/23 02:53 Labs: Laboratory Results - last 24 hr 05/23/23 15:29: WBC 12.3 H, RBC 4.03 L, Hgb 8.5 L, Hct 32.5 L, MCV 80.6 L, MCH 21.1 L, MCHC 26.2 L, RDW Std Deviation 54.4 H, RDW Coeff of Fanny 18.9 H, Plt Count 326, MPV 9.4, Immature Gran % (Auto) 1.100 H, Neut % (Auto) 80.8 H, Lymph % (Auto) 9.6 L, [place] % (Auto) 5.8, Eos % (Auto) 2.5, Baso % (Auto) 0.2, Absolute Neuts (auto) 9.9 H, Absolute Lymphs (auto) 1.18, Nucleated RBC % 0.3, Sodium 137, Potassium 4.0, Chloride 96 L, Carbon Dioxide 43.0 H, Anion Gap -2 L, BUN 12, Creatinine 0.80, Estim Creat Clear Calc 183.91, Est GFR (MDRD) Af Amer 98, Est GFR (MDRD) Non-Af 81, BUN/Creatinine Ratio 14.9, Glucose 111 H, Calcium 9.4, Troponin I High Sens 4, B-Natriuretic Peptide 2.3 05/24/23 02:35: Troponin I High Sens 5 05/24/23 02:53: WBC 12.4 H, RBC 3.56 L, Hgb 7.7 L, Hct 28.3 L, MCV 79.5 L, MCH 21.6 L, MCHC 27.2 L, RDW Std Deviation 53.8 H, RDW Coeff of Fanny 18.6 H, Plt Count 267, MPV 8.6, Immature Gran % (Auto) 0.700, Neut % (Auto) 83.9 H, Lymph % (Auto) 7.7 L, [place] % (Auto) 5.3, Eos % (Auto) 2.2, Baso % (Auto) 0.2, Absolute Neuts (auto) 10.4 H, Absolute Lymphs (auto) 0.95, Nucleated RBC % 0.3, Sodium 136, Potassium 3.9, Chloride 94 L, Carbon Dioxide 40.0 H, Anion Gap 2 L, BUN 12, Creatinine 0.71, Estim Creat Clear Calc 203.78, Est GFR (MDRD) Af Amer 115, Est GFR (MDRD) Non-Af 95, BUN/Creatinine Ratio 17.0, Glucose 154 H, Calcium 8.7 05/24/23 05:11: Troponin I High Sens 5 05/24/23 09:07: Troponin I High Sens 4 ABG Data ABG results: ABG 05/23/23 16:36 Specimen Type ART Sample Site L Radial pH 7.27 L Bicarbonate Actual 41.1 H Total CO2 44 Base Excess 14 H O2 Saturation 90 L O2 % 3.0 ABG pCO2 89.0 H* ABG pO2 70 L Hayes Test Positive O2 Delivery Device Cannula Vent Mode Not entered Crit Call To/Read Back Yes Radiography Diagnostic Testing: Radiology Impression Chest X-Ray 05/23/23 15:45 IMPRESSION: Lower lobe infiltrates suggesting pneumonia. Electronically Signed: Triston Stapleton MD at 16:04 EST Reading Location ID and State: [place] / [place] , Service support , Physical Exam Const alert, oriented x3 and no apparent distress Constitutional Narrative: Middle-age female, super morbidly obese, sitting up comfortably in bed, conversing normally, in no acute distress. General Appearance: cooperative and comfortable HEENT normocephalic, head/scalp atraumatic, hearing grossly normal bilaterally, nasal mucous membranes and turbinates normal and moist oral mucous membranes Eyes PERRL, EOMs intact bilaterally and conjunctivae normal Neck full ROM Chest inspection of chest normal Resp normal respiratory effort and no use of accessory muscles Resp Narrative: Breathing comfortably on 3 L nasal cannula. Breath sounds difficult to auscultate given patient's body habitus, no overt wheezing or crackles noted. Cardio regular rate, regular rhythm, no murmurs and peripheral pulses 2+ throughout GI normal to inspection, nondistended, normoactive bowel sounds, soft to palpation, non-tender and non-distended Back/Spine normal ROM Extremity Extremity Narrative: Bilateral lower extremities wrapped with Josemanuel wrap up to the lower thigh. She reports mild tenderness to palpation bilaterally. Difficult to determine if patient has pitting edema given the Josemanuel wrap and tenderness to palpation. Skin no rashes or lesions noted Neuro moves all extremities and no focal motor deficits Speech: speech normal Psych mental status grossly normal Assessment & Plan Assessment/Plan (1) Acute on chronic respiratory failure with hypoxia and hypercapnia: (2) Lymphedema: (3) Cellulitis of left leg: PLAN: Plan Patient is a 47-year-old female who presented [facility] ED on 05/24/[facility]23 with concern for lower extremity cellulitis and worsening shortness of breath. 1. Acute on chronic hypercapnic respiratory failure, improving ? Wears 2 to 3 L nasal cannula chronically. ? Acute worsening suspected secondary to obesity hypoventilation syndrome plus or minus untreated OFELIA. May have had mild degree of volume overload on admit. Low concern for pneumonia given noninfectious presentation. ? Chest x-ray on admit showed lower lobe infiltrates concerning for pneumonia versus atelectasis. ABG on admit showed pH 7.27, pCO2 89. Bicarb 43 on BMP. ? Placed on BiPAP on admission and given 1 dose of IV Lasix. Patient essentially back to baseline from respiratory status standpoint on 05/23. ? Monitor, continue to wean supplemental oxygen as able. No need for further IV Lasix at this time. Continue home inhalers. 2. Bilateral lower extremity lymphedema with concern for cellulitis ? On p.o. doxycycline since 05/18, per patient with minimal improvement. Had low concern for active cellulitis on admission, appeared more consistent with chronic changes secondary to lymphedema. ? However, will treat with IV vancomycin for now given positive blood culture as noted below. Monitor. 3. Concern for gram positive bacteremia ? Blood cultures from [facility] ED visit on 05/18 noted to be +1/2 positive for Staph epidermidis. Seems likely that this is a contaminant but repeat blood cultures drawn here on 05/23 and will continue IV vancomycin for now until those blood cultures have resulted. 4. Debility ? PT/OT/case management following. Patient agreeable to home health care services if needed but adamantly refuses SNF placement on discharge due to prior poor experiences. Chronic medical conditions: ? Super morbid obesity: BMI 84 on admit. Complicates hospital course, care and prognosis. ? Depression: Continue home duloxetine. ? OFELIA: Does not tolerate BiPAP at home. Try BiPAP at night as patient tolerates. DVT prophylaxis: Lovenox twice daily CODE STATUS: Full code, verified Expected disposition: Likely home with home health care, 1 to 2 days Total clinical time spent by myself addressing the patient's medical issues, reviewing all the data, and collaborating with patient's care team: 35 minutes. Charges/Coding Visit Charges Inpatient E&M: 64649 Subs Hosp L2
[2023-05-24] MEDS: Vancomycin HCl 2,000 MG in 0.9% Normal Saline (500mL Bag) 500 ML 250 MG IV (13:44)
[2023-05-24] MEDS: Gabapentin 300 MG Capsule PO (14:50)
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
--- NOTE | 2023-05-24 16:52 | PCM.RX.CS ---
Consult Antibiotic Management Pharmacy has been consulted to manage selected antibiotic: Vancomycin Type of Intervention Type of Consult: New start Suspected Infection Suspected Infection: Pneumonia Labs Labs: Sodium 136 mmol/L (136-145) 05/24/23 02:53 Potassium 3.9 mmol/L (3.5-5.1) 05/24/23 02:53 Chloride 94 mmol/L (98-107) L 05/24/23 02:53 Carbon Dioxide 40.0 mmol/L (21.0-32.0) H 05/24/23 02:53 Anion Gap 2 (5-15) L 05/24/23 02:53 BUN 12 mg/dL (7-18) 05/24/23 02:53 Creatinine 0.71 mg/dL (0.55-1.02) 05/24/23 02:53 Est GFR (MDRD) Af Amer 115 mL/min (>60) 05/24/23 02:53 Est GFR (MDRD) Non-Af 95 mL/min (>60) 05/24/23 02:53 BUN/Creatinine Ratio 17.0 RATIO (10-20) 05/24/23 02:53 Glucose 154 mg/dL (74-106) H 05/24/23 02:53 Dosing Weight Weight used for dosin kg Estimated Creatinine Clearance Estimated Creatinine Clearance: 203ml/min Goal Trough Goal Trough: 15-20 mcg/mL Pharmacy Plan for Drug Dosing Pharmacy Plan for Drug Dosing: IV VANCOMYCIN Consulting Physician: Dr. Cueva Indication: Pneumonia Goal Trough: 15-20 SrCr: 0.71 CrCl: 203 ml/min Comments: pt received a 2000mg loading dose on 05/24/23 at 1344 Vancomycin Dose: based on patients weight and renal function, recommend an initial dose of 1500mg q8h starting 05/24/23 at 2200. trough prior to the 4th total dose Pending Level: 05/25/23 at 1330 Pharmacy Service will continue to monitor and adjust dosing as required. Follow-Up Labs Follow-Up Labs: Trough: Vancomycin (05/25/23 at 1330)
[2023-05-24] MEDS: Vancomycin HCl 1,500 MG in 0.9% Normal Saline (500mL Bag) 500 ML 250 MG IV (21:46)
[2023-05-25] VITALS (8 sets, daily range): BP systolic 117–128; BP diastolic 57–66; PULSE 103–114; RESP 16–25; TEMP 36.4–36.8; O2SAT 94–98
[2023-05-25] MEDS: Ondansetron 4 MG/2 ML Vial IV (01:26)
[2023-05-25] MEDS: oxyCODONE 5 MG Tablet PO (03:28)
[2023-05-25] MEDS: Gabapentin 300 MG Capsule PO ×2 (04:50→14:54)
--- NOTE | 2023-05-25 05:07 | CPS ---
Pt refuses to wear bipap
[2023-05-25 05:09] LABS: Absolute Lymphocyte Count 0.74 X10^3/uL (0.83-4.51); Absolute Neutrophil Count 11.6 X10^3/uL (2.0-7.7); Basophil# 0.02 X10^3/uL; Basophil% 0.2 % (0-1); Eosinophil# 0.27 X10^3/uL; Eosinophils% 2.1 % (0-5); Hematocrit 28.5 % (37-47); Hemoglobin 7.6 g/dL (12.0-15.0); Lymphocyte # 0.74 X10^3/ul (0.83-4.51); Lymphocyte % 5.6 % (19-41); Mean Corp Hgb Conc 26.7 g/dL (32-36); Mean Corpuscular Hgb 21.4 pg (27.0-32.0); Mean Corpuscular Volume 80.3 fL (81-99); Mean Platelet Vol. 9.2 fl (6.2-12.0); Monocyte# 0.41 X10^3/uL; Monocyte% 3.1 % (0-10); NRBC Flagged by Analyzer 0.4 % (0-5); Neutrophil # 11.55 X10^3/uL (2.7-7.7); Platelet Count 269 K/mm3 (150-450); RBC Distribution Width CV 18.6 % (11.6-14.6); Red Blood Count 3.55 M/mm3 (4.2-5.4); White Blood Count 13.1 K/mm3 (4.4-11.0)
[2023-05-25 05:28] LABS: Anion Gap 3 (5-15); BUN 13 mg/dL (7-18); BUN/Creat Ratio 17.8 RATIO (10-20); Calcium,Total 8.5 mg/dL (8.5-10.1); Chloride 93 mmol/L (98-107); Creatinine, Serum 0.73 mg/dL (0.55-1.02); EST Glomerular Filtration Rate 91 mL/min (>60); Est Glom Filt Rate - Afr Amer 110 mL/min (>60); Glucose 152 mg/dL (74-106); Potassium 3.7 mmol/L (3.5-5.1); Sodium Level 136 mmol/L (136-145)
[2023-05-25] MEDS: Vancomycin HCl 1,500 MG in 0.9% Normal Saline (500mL Bag) 500 ML 250 MG IV (06:13)
[2023-05-25] MEDS: Dicyclomine 10 MG Capsule 20 MG PO ×4 (06:14→22:26)
[2023-05-25] MEDS: Budesonide Respules 0.5 MG/2 ML AMPUL.NEB. INHALATION ×2 (07:45→20:45)
[2023-05-25 08:54] LABS: Ferritin 39 ng/mL (8-252); Iron 25 ug/dL (50-170); Iron Binding Capacity,Total 347 ug/dL (250-450); PERCENT IRON SATURATION 7.2 % (15.0-55.0)
[2023-05-25] MEDS: Mupirocin Ointment 22gm Tube 1 APPLIC TOPICAL (10:59)
[2023-05-25] MEDS: Montelukast 10 MG Tablet PO ×2 (11:00→22:26)
[2023-05-25] MEDS: DULoxetine Hcl 20 MG Capsule PO ×2 (11:00→22:26)
[2023-05-25] MEDS: HYDROcodone Bitartrate/Apap 5/325 Tablet PO ×2 (11:07→22:29)
--- NOTE | 2023-05-25 12:04 | PCM.PN.HOSP ---
Reason for Visit Reason for Visit: Diagnoses Morbid (severe) obesity due to excess calories (05/23/23) Fluid overload, unspecified (05/23/23) Lymphedema, not elsewhere classified (05/23/23) Acute and chronic respiratory failure with hypoxia (05/23/23) Acute and chronic respiratory failure with hypercapnia (05/23/23) Cellulitis of left lower limb (05/23/23) Subjective Subjective No acute events overnight. Patient seen at bedside this morning. Patient was more fatigued appearing this morning than yesterday. Nurse was at bedside and noted that patient had tried BiPAP overnight multiple times but was not able to tolerate it. Patient notes that she has PTSD with wearing BiPAP. States that she typically does fine at home after waking up with no supplemental oxygen but that her fatigue gets worse with mucus buildup in the chest. Patient otherwise reports continued mild bilateral leg pain with palpation, similar to previous days. Denies any fevers or chills. No other acute concerns at this time. Objective Data Objective Data Vital Signs: Vital Signs Temp Pulse Resp BP Pulse Ox O2 Del Method O2 Flow Rate 98.2 F 114 H 18 117/57 L 96 Nasal Cannula 5 05/25/23 10:52 05/25/23 10:52 05/25/23 10:52 05/25/23 10:52 05/25/23 10:52 05/25/23 10:52 05/25/23 10:47 FiO2 35 05/23/23 16:40 Oxygen Flow Rate (L/min) 5 Oxygen Delivery Method Nasal Cannula Weight: 237 kg Body Mass Index (BMI) 84.3 Intake & Output: Intake and Output for Last 24 Hours 05/23/23 05/24/23 05/26/23 23:59 23:59 00:59 Intake Total 1020 / 1020 1720 / 1720 Output Total 3800 / 3800 4075 / 4075 350 / 350 Balance -3800 / -3800 -3055 / -3055 1370 / 1370 Lab / Micro Data 05/25/23 04:46 05/25/23 04:46 Labs: Laboratory Results - last 24 hr 05/25/23 04:46: WBC 13.1 H, RBC 3.55 L, Hgb 7.6 L, Hct 28.5 L, MCV 80.3 L, MCH 21.4 L, MCHC 26.7 L, RDW Std Deviation 54.0 H, RDW Coeff of Fanny 18.6 H, Plt Count 269, MPV 9.2, Immature Gran % (Auto) 1.000 H, Neut % (Auto) 88.0 H, Lymph % (Auto) 5.6 L, Fountain % (Auto) 3.1, Eos % (Auto) 2.1, Baso % (Auto) 0.2, Absolute Neuts (auto) 11.6 H, Absolute Lymphs (auto) 0.74 L, Nucleated RBC % 0.4, Sodium 136, Potassium 3.7, Chloride 93 L, Carbon Dioxide 40.0 H, Anion Gap 3 L, BUN 13, Creatinine 0.73, Estim Creat Clear Calc 198.20, Est GFR (MDRD) Af Amer 110, Est GFR (MDRD) Non-Af 91, BUN/Creatinine Ratio 17.8, Glucose 152 H, Calcium 8.5, Iron 25 L, TIBC 347, Iron Saturation 7.2 L, Ferritin 39 Physical Exam Const alert, oriented x3 and no apparent distress Constitutional Narrative: Middle-age female, super morbidly obese, more fatigued appearing this morning, otherwise laying comfortably in bed, conversing normally, in no acute distress. General Appearance: cooperative and comfortable HEENT normocephalic, head/scalp atraumatic, hearing grossly normal bilaterally, nasal mucous membranes and turbinates normal and moist oral mucous membranes Eyes PERRL, EOMs intact bilaterally and conjunctivae normal Neck full ROM Chest inspection of chest normal Resp normal respiratory effort and no use of accessory muscles Resp Narrative: Breathing comfortably on 5 L nasal cannula. Breath sounds difficult to auscultate given patient's body habitus, no overt wheezing or crackles noted. Cardio regular rate, regular rhythm, no murmurs and peripheral pulses 2+ throughout GI normal to inspection, nondistended, normoactive bowel sounds, soft to palpation, non-tender and non-distended Back/Spine normal ROM Extremity Extremity Narrative: Bilateral lower extremities wrapped with Josemanuel wrap up to the lower thigh. She reports mild tenderness to palpation bilaterally. Difficult to determine if patient has pitting edema given the Josemanuel wrap and tenderness to palpation. Skin no rashes or lesions noted Neuro moves all extremities and no focal motor deficits Speech: speech normal Psych mental status grossly normal Assessment & Plan Assessment/Plan (1) Acute on chronic respiratory failure with hypoxia and hypercapnia: (2) Lymphedema: (3) Cellulitis of left leg: PLAN: Plan Patient is a 47-year-old female who presented [facility] ED on 05/24/2023 with concern for lower extremity cellulitis and worsening shortness of breath. 1. Acute on chronic hypercapnic respiratory failure, improved; history of untreated OFELIA ? Wears 2 to 3 L nasal cannula chronically. Acute worsening suspected secondary to obesity hypoventilation syndrome and untreated OFELIA. May have had mild degree of volume overload on admit. Low concern for pneumonia given noninfectious presentation. ? Patient reports that she is unable to wear CPAP or BiPAP at night as it triggers her PTSD. ? Chest x-ray on admit showed lower lobe infiltrates concerning for pneumonia versus atelectasis. ABG on admit showed pH 7.27, pCO2 89. Bicarb 43 on BMP. ? Placed on BiPAP on admission and given 1 dose of IV Lasix. Patient back to baseline from respiratory status standpoint on 05/23. ? Patient appears fatigued on morning of 05/24, suspect that she had some mild worsening of hypercapnia at that time as she did not tolerate BiPAP overnight. Continue to monitor on supplemental oxygen. No need for further IV Lasix. Continue home inhalers. 2. Bilateral lower extremity lymphedema with concern for cellulitis ? On p.o. doxycycline since 05/18, per patient with minimal improvement. Had low concern for active cellulitis on admission, appeared more consistent with chronic changes secondary to lymphedema. ? However, will treat with IV vancomycin for now given positive blood culture as noted below. Monitor. ? Wound care consulted on admission but it does not appear that they have seen the patient yet, will need to make sure they see the patient prior to discharge. 3. Concern for gram positive bacteremia ? Blood cultures from [facility] ED visit on 05/18 noted to be +1/2 positive for Staph epidermidis. Seems likely that this is a contaminant but repeat blood cultures drawn here on 05/23 and will continue IV vancomycin for now until those blood cultures have resulted. 4. Debility ? PT/OT/case management following. Patient agreeable to home health care services if needed but adamantly refuses SNF placement on discharge due to prior poor experiences. 5. Acute on chronic anemia ? Hemoglobin 8.5 on admit, mild downtrend during hospitalization. Baseline hemoglobin unclear, had one hemoglobin value on 05/01/22 of 11.3 but suspect this was hemoconcentrated; other previous values were from 2021. ? Iron studies on 05/24 consistent with a significant iron deficiency anemia. Patient denies any dark or bloody bowel movements. Denies any other overt signs of blood loss. Unclear if patient is still having menstrual cycles. ? Monitor CBC daily. Will start p.o. iron supplement daily. May be a good candidate for IV iron supplementation but will not do at this point given concern for infection as noted above. Unclear if patient has had GI workup, can consider GI consult if needed. Chronic medical conditions: ? Super morbid obesity: BMI 84 on admit. Complicates hospital course, care and prognosis. ? Depression: Continue home duloxetine. ? OFELIA: Does not tolerate BiPAP at home. Try BiPAP at night as patient tolerates. DVT prophylaxis: Lovenox twice daily CODE STATUS: Full code, verified Expected disposition: Likely home with home health care, 1 to 2 days Total clinical time spent by myself addressing the patient's medical issues, reviewing all the data, and collaborating with patient's care team: 35 minutes. Charges/Coding Visit Charges Inpatient E&M: 31991 Subs Hosp L2
[2023-05-25] MEDS: Acetaminophen 325 MG Tablet 650 MG PO (14:00)
--- NOTE | 2023-05-25 15:16 | PCM.RX.CS ---
Consult Antibiotic Management Pharmacy has been consulted to manage selected antibiotic: Vancomycin Type of Intervention Type of Consult: Follow-up Suspected Infection Suspected Infection: Pneumonia Labs Labs: Sodium 136 mmol/L (136-145) 05/25/23 04:46 Potassium 3.7 mmol/L (3.5-5.1) 05/25/23 04:46 Chloride 93 mmol/L (98-107) L 05/25/23 04:46 Carbon Dioxide 40.0 mmol/L (21.0-32.0) H 05/25/23 04:46 Anion Gap 3 (5-15) L 05/25/23 04:46 BUN 13 mg/dL (7-18) 05/25/23 04:46 Creatinine 0.73 mg/dL (0.55-1.02) 05/25/23 04:46 Est GFR (MDRD) Af Amer 110 mL/min (>60) 05/25/23 04:46 Est GFR (MDRD) Non-Af 91 mL/min (>60) 05/25/23 04:46 BUN/Creatinine Ratio 17.8 RATIO (10-20) 05/25/23 04:46 Glucose 152 mg/dL (74-106) H 05/25/23 04:46 Vancomycin Trough 22.0 ug/mL (5.0-15.0) H 05/25/23 13:20 Goal Trough Goal Trough: 15-20 mcg/mL Pharmacy Plan for Drug Dosing Pharmacy Plan for Drug Dosing: VANCOMYCIN LEVEL RECEIVED Current Vancomycin Dose: 1500mg q8h (02,14,22) Number of Doses Received: x1 2000mg loading dose, x2 1500mg doses Vancomycin Level: 22 Hours Since Last Dose: 7 hours since last dose on 05/25/23 at 0613 Renal Function: SrCr 0.73 Renal Function Trend: stable Lab/Micro: Vancomycin Plan/Comments: resulted trough of 22 is greater than the ordered goal trough range of 15-20. recommend holding x2 doses, and lowering dose to 1250mg q8h starting 05/26/23 at 0600. trough prior to the 4th dose Pending Level: 05/27/23 at 0530 Pharmacy Service will continue to monitor and adjust dosing as required. Follow-Up Labs Follow-Up Labs: Trough: Vancomycin (05/27/23 at 0530)
[2023-05-25] MEDS: Sodium Chloride 0.65% 1 SPRAY SPRAY.BTL NASAL (15:48)
[2023-05-25] MEDS: Ferrous Sulfate 325 MG Tablet PO (15:48)
[2023-05-25] MEDS: 0.9% Saline Lock 10 ML Syringe IV (22:25)
[2023-05-26] VITALS (7 sets, daily range): BP systolic 121–142; BP diastolic 42–76; PULSE 104–114; RESP 18–20; TEMP 36.4–36.7; O2SAT 94–100
[2023-05-26] MEDS: Gabapentin 300 MG Capsule PO ×2 (01:57→10:08)
[2023-05-26] MEDS: Albuterol 2.5 MG/3 ML VIAL.NEB. INHALATION (05:12)
[2023-05-26] MEDS: Vancomycin HCl 1,250 MG in 0.9% Normal Saline (250mL Bag) 250 ML 167 MG IV ×2 (06:02→14:46)
[2023-05-26] MEDS: Dicyclomine 10 MG Capsule 20 MG PO ×3 (06:02→17:09)
[2023-05-26 06:05] LABS: Hematocrit 29.3 % (37-47); Hemoglobin 7.9 g/dL (12.0-15.0); Mean Corpuscular Hgb 21.6 pg (27.0-32.0); Mean Corpuscular Volume 80.3 fL (81-99); Mean Platelet Vol. 9.2 fl (6.2-12.0); Platelet Count 276 K/mm3 (150-450); RBC Distribution Width SD 54.8 fl (35.1-43.9); Red Blood Count 3.65 M/mm3 (4.2-5.4); White Blood Count 11.8 K/mm3 (4.4-11.0)
[2023-05-26] MEDS: HYDROcodone Bitartrate/Apap 5/325 Tablet PO ×2 (06:06→11:29)
[2023-05-26 06:35] LABS: Anion Gap 3 (5-15); BUN 12 mg/dL (7-18); BUN/Creat Ratio 16.9 RATIO (10-20); Calcium,Total 8.9 mg/dL (8.5-10.1); Chloride 92 mmol/L (98-107); Creatinine, Serum 0.71 mg/dL (0.55-1.02); EST Glomerular Filtration Rate 94 mL/min (>60); Est Glom Filt Rate - Afr Amer 113 mL/min (>60); Estimated Creatinine Clearance 203.78 ml/min; Glucose 130 mg/dL (74-106); Sodium Level 136 mmol/L (136-145)
[2023-05-26] MEDS: Budesonide Respules 0.5 MG/2 ML AMPUL.NEB. INHALATION (07:51)
--- NOTE | 2023-05-26 07:54 | ECHOCS_ITS ---
Reason For Study: DYSPNEA Procedure This was a 2D Doppler, Color Flow transthoracic echocardiogram. The study was technically difficult. Contrast injection was performed. Left Ventricle Normal LV size. The estimated ejection fraction is 65 %. Unable to assess diastolic dysfunction. No regional wall motion abnormalities noted. Right Ventricle The right ventricle is not well visualized. Atria The left atrium is not well visualized. The right atrium is not well visualized. Mitral Valve Mitral valve not well visualized. There is no mitral valve stenosis. No mitral valve insufficiency. Tricuspid Valve There is no tricuspid stenosis. Unable to estimate RV systolic pressure due to inadequate jet, pulmonary artery pressure probably normal. Aortic Valve The aortic valve is not well visualized. There is no aortic stenosis. No aortic valve insufficiency. Pulmonic Valve There is no pulmonic valvular stenosis. No pulmonic valve insufficiency. Great Vessels Normal aortic root. Pericardium/Pleural No pericardial effusion. Medication Diluted definity 2ml given slow IV push to enhance endocardial definition. MMode/2D Measurements & Calculations Ao root diam: 3.2 cm LA dimension(2D): 3.9 cm Time Measurements MV dec time: 0.12 sec Doppler Measurements & Calculations MV E max narciso: 121.9 cm/sec Lat Peak E' Narciso: 7.3 cm/sec Med Peak E' Narciso: 13.1 cm/sec MV A max narciso: 100.7 cm/sec E/E' lat: 16.8 E/E' med: 9.3 MV E/A: 1.2 MV V2 max: 137.9 cm/sec Ao V2 max: 99.9 cm/sec MV max P.6 mmHg MV dec slope: 1046 cm/sec2 Ao max P.0 mmHg MV V2 mean: 104.4 cm/sec MV mean P.8 mmHg MV V2 VTI: 29.4 cm PA V2 max: 127.8 cm/sec PA V2 mean: 86.5 cm/sec ECHO/Echo Complete W/ Contrast Interpretation Summary The estimated ejection fraction is 65 %. Unable to assess diastolic dysfunction. Ordering Physician: Xochitl Cardoso Referring Physician: Mireille Dietz M.D. Performed By: Mercedes Small RCS
--- NOTE | 2023-05-26 10:05 | CASEMGMT ---
Addendum entered by Latisha Hsu 05/26/23 15:37: Patient was declined by all new referral sources, including [facility]. RN CM updated. Latisha Hsu, Discharge Planning Asst. Original Note: Discharge Planning HH referrals were sent over weekend to [facility] (declined), [facility] (declined), [facility] (declined), [facility] (declined), [facility] (declined), [facility] (declined). Awaiting decision from [facility], which requested additional information. New referrals sent to [facility], [facility], [facility], [facility], and [facility]. Latisha Hsu, Discharge Planning Asst.
[2023-05-26] MEDS: Pantoprazole Sodium 40 MG in 0.9% Normal Saline (100mL MB+) 100 ML 330 MG IV (10:09)
[2023-05-26] MEDS: Montelukast 10 MG Tablet PO (10:10)
[2023-05-26] MEDS: DULoxetine Hcl 20 MG Capsule PO (10:10)
[2023-05-26] MEDS: Mupirocin Ointment 22gm Tube 1 APPLIC TOPICAL (10:10)
[2023-05-26] MEDS: Nystatin Powder 15gm Bottle 1 APPLIC TOPICAL (10:11)
--- NOTE | 2023-05-26 10:26 | WOUNDNOTE ---
Pt has chronic lymphedema to bilateral lower legs. there is still some redness noted to bilateral legs. pt requests that the CHANO wraps are not reapplied. the wraps tend to bunch at the ankles so are really not that effective anyway. patient is resting in bed with legs elevated slightly. will monitor.
--- NOTE | 2023-05-26 11:38 | WOUNDNOTE ---
wound photo: lower abdomen
--- NOTE | 2023-05-26 11:38 | WOUNDNOTE ---
wound photo: left leg
--- NOTE | 2023-05-26 11:39 | WOUNDNOTE ---
wound photo: right leg
--- NOTE | 2023-05-26 12:52 | EX.PCM.CONCC ---
Assessment & Plan Assessment/Plan (1) Acute on chronic respiratory failure with hypoxia and hypercapnia: (2) Fluid overload: QUALIFIERS: Hypervolemia type: other Qualified Code(s): E87.79 - Other fluid overload (3) Lymphedema: (4) Morbid obesity: (5) Cellulitis of left leg: PLAN: Plan RECOMMENDATIONS: 1. Wean supplemental oxygen to maintain saturations between 90 and 94%. 2. Encourage incentive spirometer use and mobilize patient as tolerated. 3. Continue empiric antibiotics and diuresis as tolerated 4. Encourage BiPAP if patient is agreeable 5. Walking oximetry prior to discharge 6. Encourage nasal saline to maintain nasal patency 7. Okay to discharge from a pulmonary perspective following walking oximetry IMPRESSIONS: 1. Acute hypoxemic respiratory failure secondary to volume overload Patient with acute on chronic hypercarbic respiratory failure on presentation. There is high clinical suspicion for alveolar hypoventilation, but patient will need to be euvolemic before a room air ABG can be obtained. Patient likely has an element of inability to compensate for cellulitis. Patient's failure to comply with BiPAP therapy does increase her risk for respiratory failure. Patient's mentation appears to be appropriate at this time, so we will hold off on any ABG. Bilateral infiltrates on chest x-ray with cephalization is suggestive of volume overloaded 2. Suspected sleep apnea/alveolar hypoventilation The patient did present with a chronic elevated bicarbonate. Although she does report having had a sleep study done previously, she reported that she was told that she did not have sleep apnea. I highly doubt that the patient does not have some form of sleep apnea, based upon her body habitus. It is certainly reasonable to place the patient empirically on BiPAP therapy on a nightly basis, if she is agreeable. Patient is yet to use BiPAP overnight. Patient likely will require diuresis to assess for obesity hypoventilation syndrome. 3. Super morbid obesity/anemia/self-reported asthma/cellulitis/neuropathy Complicates care, management, recovery and prognosis. Continue home medications as indicated. This note was generated with [employer] software. It may contain incorrect words, spelling, and punctuation that were not noted in checking the note before signing. HPI Consult Data Date of Consult: 05/26/23 HPI Narrative HPI Narrative: HELGA JENSEN is a 47 F, with past medical history listed below, who presented to [facility] on 05/23/2023 secondary to concerns for bilateral lower extremity cellulitis. Patient reportedly had been taking doxycycline reported but felt that her condition had continued to progress despite antibiotics. Patient also reported significant fluid retention that she can tell as she locks up her knees. Patient reportedly had been compliant with her diuretic therapy. Patient had also reported intermittent midsternal chest pain. On arrival to the emergency department, patient was afebrile, but tachycardic at 111 bpm. Patient was also tachypneic as high as 26 breaths/min. Patient was saturating well on room air at that time. Patient's blood pressure was adequate. Laboratory workup showed a white blood cell count of 12.3, hemoglobin of 8.5 and platelets of 326. Chemistries were significant for an elevated bicarbonate of 43, normal renal function and BNP. An ABG at that time did show acute on chronic hypercarbic respiratory failure with increased AA gradient. Chest x-ray had shown bilateral lower lobe infiltrates. Patient was attempted on BiPAP, but was unable to tolerate. Patient was given Ativan without significant improvement in tolerance. Patient was given IV Lasix. Patient was admitted to the floor for further evaluation. Since being admitted to the hospital, patient has not been able to tolerate BiPAP therapy. Patient is requiring 4 L nasal cannula to maintain saturations. Patient's leukocytosis has improved and no fevers have been noted. Patient subjectively feels much improved compared to previous. Patient states that she still has significant difficulty with any movement. Patient does have an echocardiogram from 2020 showing preserved ejection fraction, but windows were severely limited. Patient had been admitted secondary to COVID-19 at that time and had difficulty with tolerating BiPAP therapy. Patient was very annoyed about the discussion associated with BiPAP therapy, so review of systems could not be obtained. [facility] Medical History Anemia Asthma BMI 70 and over, adult Cancer Chronic pain Crohn disease DVT (deep venous thrombosis) Carole-Danlos syndrome GERD (gastroesophageal reflux disease) Hearing loss, left Hearing loss, right Irregular heart beat Kidney disease Kidney stones Lumbar spondylosis Lymphedema Migraines Morbid obesity Non-smoker Obesity On home oxygen therapy Renal atrophy Rheumatoid arthritis Splenomegaly T-cell lymphoma Home Medications acetaminophen 650 mg tablet,extended release 1,300 mg PO Q12H PAIN 10/02/20 [History Last Taken 12/19/20] albuterol sulfate 90 mcg/actuation breath activated powder inhaler 1 inh inhalation Q6H PRN Wheezing 10/02/20 [History Last Taken 12/19/20] ciclesonide 80 mcg/actuation aerosol inhaler 1 puff inhalation BID SOB 10/02/20 [History Last Taken 12/19/20] duloxetine 20 mg capsule,delayed release sprinkle 20 mg PO BID DEPRESSION 10/02/20 [History Last Taken 12/19/20] gabapentin 300 mg capsule 300 mg PO TID PRN muscle spasms 10/02/20 [History Last Taken 12/18/20] glucosamine 750 [id number] no1 644 mg-C 30 mg-jamie 1 mg tablet (Osteo Bi-Flex Triple Strength) 2 tab PO DAILY SUPPLEMENT 10/02/20 [History Last Taken 12/19/20] ibuprofen 200 mg tablet 400 mg PO DAILY PRN Pain 10/02/20 [History Last Taken 12/05/20 22:00] montelukast 10 mg tablet 10 mg PO BID ALLERGIES 10/02/20 [History Last Taken 12/19/20] elderberry fruit 200 mg capsule 200 mg PO DAILY supplement 12/05/20 [History Last Taken 12/19/20] mupirocin 2 % topical ointment 1 applic topical DAILY antibiotic 12/19/20 [History Last Taken 12/19/20] doxycycline hyclate 100 mg capsule 100 mg PO BID 05/23/23 [History Last Taken Unknown] Allergy/AdvReac Type Severity Reaction Status Date / Time Nitrate Analogues Allergy Unknown throat/nose Verified 05/23/23 14:41 swelling adhesive tape Allergy Rash Verified 05/23/23 14:41 aspirin Allergy Angioedema Verified 05/23/23 14:41 benzonatate Allergy Shortness Verified 05/23/23 14:41 of breath cephalexin Allergy Rash Verified 05/23/23 14:41 coconut oil Allergy throat Verified 05/23/23 14:41 swells copper Allergy skin peels Verified 05/23/23 14:41 Environmental Allergies: Allergy Rash Verified 05/23/23 14:41 Uncoded formaldehyde Allergy Anaphylaxis Verified 05/23/23 14:41 gold Au 198 Allergy Rash Verified 05/23/23 14:41 Iodine and Iodide Containing Allergy Anaphylaxis Verified 05/23/23 14:41 Produc latex Allergy Anaphylaxis Verified 05/23/23 14:41 mold Allergy Anaphylaxis Verified 05/23/23 14:41 nickel Allergy Rash Verified 05/23/23 14:41 nitrofurantoin Allergy Anaphylaxis Verified 05/23/23 14:41 palm oil Allergy Hives Verified 05/23/23 14:41 Penicillins Allergy Rash Verified 05/23/23 14:41 soy Allergy Diarrhea Verified 05/23/23 14:41 Sulfa (Sulfonamide Allergy Rash Verified 05/23/23 14:41 Antibiotics) topiramate Allergy goes Verified 05/23/23 14:41 crazy aspartame AdvReac kidneyfailu Verified 05/23/23 14:41 re lactose AdvReac Nausea Verified 05/23/23 14:41 morphine AdvReac confusion Verified 05/23/23 14:41 Family History Father Heart disease Mother Diabetes Surgical History History of partial hysterectomy Hx of pelvic surgery Previous section Social History household members: children Smoking Status: Never smoker alcohol intake: current alcohol intake frequency: holidays/special occasions only substance use type: does not use Physical Exam Const alert, oriented x3 and no apparent distress Constitutional Narrative: On nasal cannula during my evaluation. Morbidly obese and appears older than stated age General Appearance: cooperative and comfortable HEENT normocephalic, head/scalp atraumatic and moist oral mucous membranes HEENT Narrative: Mallampati 4 Teeth and Gingiva: poor dentition Eyes PERRL, EOMs intact bilaterally and conjunctivae normal Neck full ROM Chest inspection of chest normal Resp normal respiratory effort Auscultation: diminished lung sounds; Negative for rales, rhonchi or wheezes Cardio regular rate, regular rhythm, no murmurs and peripheral pulses 2+ throughout GI normal to inspection, nondistended, normoactive bowel sounds, soft to palpation, non-tender and non-distended Back/Spine normal ROM Extremity Extremity Narrative: Bilateral 4+ edema. There does appear to be some regression of erythema on the left lower extremity compared to area marked. Skin no rashes or lesions noted Neuro moves all extremities and no focal motor deficits Speech: speech normal Psych mental status grossly normal Medical Records Data Attestation: I reviewed the patient's medical records Medical records narrative: Patient does not have a PFT available for review. No previous ABGs are available for review, but bicarbonates have ranged in the 40s for the last 2 years. Lab / Micro Data Attestation: I reviewed the patient's lab results. 05/26/23 05:35 05/26/23 05:35 Labs: Laboratory Results - last 24 hr 05/25/23 13:20: Vancomycin Trough 22.0 H 05/26/23 05:35: WBC 11.8 H, RBC 3.65 L, Hgb 7.9 L, Hct 29.3 L, MCV 80.3 L, MCH 21.6 L, MCHC 27.0 L, RDW Std Deviation 54.8 H, RDW Coeff of Fanny 19.0 H, Plt Count 276, MPV 9.2, Sodium 136, Potassium 4.0, Chloride 92 L, Carbon Dioxide 41.0 H, Anion Gap 3 L, BUN 12, Creatinine 0.71, Estim Creat Clear Calc 203.78, Est GFR (MDRD) Af Amer 113, Est GFR (MDRD) Non-Af 94, BUN/Creatinine Ratio 16.9, Glucose 130 H, Calcium 8.9 ABG Data ABG results: 7.27/89/70/90% on nasal cannula Attestation: I personally reviewed and interpreted this ABG as follows: (See HPI) Imaging Chest x-ray was personally reviewed and shows bilateral lower lobe infiltrates with no significant blunting and cephalization Charges/Coding Visit Charges Inpatient E&M: 90650 Init Hosp L3
--- NOTE | 2023-05-26 13:04 | PN_ITS ---
Subjective Subjective Patient seen and examined. She had no active complaints. She remains on oxygen, and has apparently not been tolerating the BIPAP. She was anemic on admission, and this worsened during her stay with her Hb going as low as 7.6. Iron panel showed severe iron deficiency anemia. She has otherwise remained hemodynamically stable. Objective Data Objective Data Vital Signs: Vital Signs Temp Pulse Resp BP Pulse Ox O2 Del Method O2 Flow Rate 97.7 F L 113 H 18 121/74 H 94 Room Air 4 05/26/23 10:04 05/26/23 10:04 05/26/23 10:04 05/26/23 10:04 05/26/23 10:04 05/26/23 10:04 05/26/23 10:04 FiO2 35 05/23/23 16:40 Oxygen Flow Rate (L/min) 4 Oxygen Delivery Method Room Air Weight: 522 lb 7.929 oz Body Mass Index (BMI) 84.3 Intake & Output: Intake and Output for Last 24 Hours 05/24/23 05/25/23 05/26/23 22:59 23:59 23:59 Intake Total 825 / 825 Output Total 325 / 325 Balance 500 / 500 Lab / Micro Data 05/26/23 05:35 05/26/23 05:35 Labs: Laboratory Results - last 24 hr 05/25/23 13:20: Vancomycin Trough 22.0 H 05/26/23 05:35: WBC 11.8 H, RBC 3.65 L, Hgb 7.9 L, Hct 29.3 L, MCV 80.3 L, MCH 21.6 L, MCHC 27.0 L, RDW Std Deviation 54.8 H, RDW Coeff of Fanny 19.0 H, Plt Count 276, MPV 9.2, Sodium 136, Potassium 4.0, Chloride 92 L, Carbon Dioxide 41.0 H, Anion Gap 3 L, BUN 12, Creatinine 0.71, Estim Creat Clear Calc 203.78, Est GFR (MDRD) Af Amer 113, Est GFR (MDRD) Non-Af 94, BUN/Creatinine Ratio 16.9, Glucose 130 H, Calcium 8.9 Physical Exam Const alert, oriented x3 and no apparent distress Constitutional Narrative: super morbid obesity General Appearance: cooperative HEENT normocephalic, head/scalp atraumatic, moist oral mucous membranes and oropharynx normal Eyes PERRL and EOMs intact bilaterally Neck no lymphadenopathy and supple General: trachea midline Lymph Lymphatic: no lymphadenopathy noted and no lymphedema noted Resp Resp Narrative: mildly diminished breath sounds bibasally, no wheezes or crackles. On 2-3L of oxygen by nasal canula Cardio regular rate, regular rhythm, S1 normal heart sound, S2 normal heart sound and no murmurs GI normal to inspection, nondistended, normoactive bowel sounds, soft to palpation, non-tender and non-distended GI Narrative: very obese abdomen Extremity Extremity Narrative: bilateral lymphedema, with mild erythema of both LEs and chronic stasis changes. Neuro CN's II-XII intact bilaterally, no focal motor deficits, no sensory deficits noted and deep tendon reflexes 2+ bilaterally Motor Exam: strength 5/5 throughout and general weakness Psych thought process normal and cooperative Appearance: appropriate Assessment & Plan Assessment/Plan (1) Acute on chronic respiratory failure with hypoxia and hypercapnia: (2) Acute respiratory failure with hypoxia: PLAN: Plan #Acute on chronic hypoxic and hypercapnic respiratory failure in setting of untreated OFELIA and OHS * patient not tlerating BIPAP. On 2-3L of oxygen by nasal canula * pulmonology on board * breathing treatment wtih bronchodilators * titrate oxygen to maintain sats >90% * breathing treatment wiuth bronchodilators * #BIlateral lower extremetiy lymphedema * had chronic stasis changes on lower extremities; little evidence for cellulitis * however she did have 1/2 positive blood cultures for staph epidermidis from cultures done at [facility] * repeat blood cultures pending here * on IV vancomycin pending repeat blood cultures. Staph epidermidis most likely a contaminant. #Staph epidermidis bacteremia: as above #Acute on chronic anemia * Hb went as low as 7.6. Hb today is 7.0 * iron profile showed severe iron deficiency anemia * gastroenterology ordered * patient has no history of ulcers but does have a history of cervical and uterine cancer. She has no history of GI cancer nd doesnt think she has ever had a colonoscopy or EGD * in light of her young age, I think we need to get GI consult. GI therefore consulted * prophylactic lovenox discontinued. * started on IV pantoprazole * #Super morbid obesity. BMI is 84.3. Complicates acute care, expected recovery and prognosis. #Depression: On duloxetine DVT prophylaxis: SCDs. Charges/Coding Visit Charges Inpatient E&M: 69359 Subs Hosp L2
--- NOTE | 2023-05-26 16:39 | CON.PCM.GI_ITS ---
HPI Consult Data Date of Consult: 05/27/23 HPI Narrative Reason for Consultation: Anemia HPI Narrative: HELGA JENSEN, is a 47 F who presented to the ER due to concerns for bilateral lower extremity cellulitis. She reports that she is currently taking doxycycline due to cellulitis. She also has a history of lymphedema and has noticed that she has been retaining more water over the past few weeks. She does take diuretics and are compliant with them. She does wear O2 chronically at home, however she has felt intermittently short of breath despite O2 supplementation. She reports that she has had intermittent midsternal chest pain over the past few weeks. She denies any fevers or chills. PE Risk Factors: Negative for Prior DVT or PE, Recent immobilization, Recent surgery or Recent travel Hemoglobin 8.5 on admit, mild downtrend during hospitalization. Baseline hemoglobin unclear, had one hemoglobin value on 05/01/22 of 11.3 but suspect this was hemoconcentrated; other previous values were from 2021. ? Iron studies on 05/24 consistent with a significant iron deficiency anemia. Patient denies any dark or bloody bowel movements. Denies any other overt signs of blood loss. Unclear if patient is still having menstrual cycles. I was asked to see her due to worsening anemia. [facility] Medical History (Updated 05/27/23 @ 16:[address] Garcia Friend, DO) Anemia Asthma BMI 70 and over, adult Cancer Chronic pain Crohn disease DVT (deep venous thrombosis) Carole-Danlos syndrome GERD (gastroesophageal reflux disease) Hearing loss, left Hearing loss, right Irregular heart beat Kidney disease Kidney stones Lumbar spondylosis Lymphedema Migraines Morbid obesity Non-smoker Obesity On home oxygen therapy Renal atrophy Rheumatoid arthritis Splenomegaly T-cell lymphoma Home Medications acetaminophen 650 mg tablet,extended release 1,300 mg PO Q12H PAIN 10/02/20 [History Last Taken 12/19/20] albuterol sulfate 90 mcg/actuation breath activated powder inhaler 1 inh inhalation Q6H PRN Wheezing 10/02/20 [History Last Taken 12/19/20] ciclesonide 80 mcg/actuation aerosol inhaler 1 puff inhalation BID SOB 10/02/20 [History Last Taken 12/19/20] duloxetine 20 mg capsule,delayed release sprinkle 20 mg PO BID DEPRESSION 10/02/20 [History Last Taken 12/19/20] gabapentin 300 mg capsule 300 mg PO TID PRN muscle spasms 10/02/20 [History Last Taken 12/18/20] glucosamine 750 [id number] no1 644 mg-C 30 mg-jamie 1 mg tablet (Osteo Bi-Flex Triple Strength) 2 tab PO DAILY SUPPLEMENT 10/02/20 [History Last Taken 12/19/20] ibuprofen 200 mg tablet 400 mg PO DAILY PRN Pain 10/02/20 [History Last Taken 12/05/20 22:00] montelukast 10 mg tablet 10 mg PO BID ALLERGIES 10/02/20 [History Last Taken 12/19/20] elderberry fruit 200 mg capsule 200 mg PO DAILY supplement 12/05/20 [History Last Taken 12/19/20] mupirocin 2 % topical ointment 1 applic topical DAILY antibiotic 12/19/20 [History Last Taken 12/19/20] doxycycline hyclate 100 mg capsule 100 mg PO BID 05/23/23 [History Last Taken Unknown] Allergy/AdvReac Type Severity Reaction Status Date / Time Nitrate Analogues Allergy Unknown throat/nose Verified 05/23/23 14:41 swelling adhesive tape Allergy Rash Verified 05/23/23 14:41 aspirin Allergy Angioedema Verified 05/23/23 14:41 benzonatate Allergy Shortness Verified 05/23/23 14:41 of breath cephalexin Allergy Rash Verified 05/23/23 14:41 coconut oil Allergy throat Verified 05/23/23 14:41 swells copper Allergy skin peels Verified 05/23/23 14:41 Environmental Allergies: Allergy Rash Verified 05/23/23 14:41 Uncoded formaldehyde Allergy Anaphylaxis Verified 05/23/23 14:41 gold Au 198 Allergy Rash Verified 05/23/23 14:41 Iodine and Iodide Containing Allergy Anaphylaxis Verified 05/23/23 14:41 Produc latex Allergy Anaphylaxis Verified 05/23/23 14:41 mold Allergy Anaphylaxis Verified 05/23/23 14:41 nickel Allergy Rash Verified 05/23/23 14:41 nitrofurantoin Allergy Anaphylaxis Verified 05/23/23 14:41 palm oil Allergy Hives Verified 05/23/23 14:41 Penicillins Allergy Rash Verified 05/23/23 14:41 soy Allergy Diarrhea Verified 05/23/23 14:41 Sulfa (Sulfonamide Allergy Rash Verified 05/23/23 14:41 Antibiotics) topiramate Allergy goes Verified 05/23/23 14:41 crazy aspartame AdvReac kidneyfailu Verified 05/23/23 14:41 re lactose AdvReac Nausea Verified 05/23/23 14:41 morphine AdvReac confusion Verified 05/23/23 14:41 Family History Father Heart disease Mother Diabetes Surgical History History of partial hysterectomy Hx of pelvic surgery Previous section Social History household members: children Smoking Status: Never smoker alcohol intake: current alcohol intake frequency: holidays/special occasions only substance use type: does not use ROS Review of Systems ROS Unobtainable: Denies due to encephalopathy Constitutional Constitutional: Reports fatigue and malaise; Denies anorexia, change in weight, chills, fever(s), weakness or weight gain Eyes Eyes: Denies change in vision ENT HEENT: Denies dysphagia, headache(s) or sore throat Cardiovascular Cardiovascular: Reports edema; Denies chest pain, orthopnea, palpitations, paroxysmal nocturnal dyspnea or syncope Respiratory/Chest Respiratory/Chest: Reports shortness of breath at rest and shortness of breath with exertion; Denies cough or wheezing Gastrointestinal Gastrointestinal: Denies abdominal pain, nausea or vomiting Genitourinary Genitourinary: Denies dysuria Neurologic Neurologic: Denies confusion, dizziness, focal weakness, headache(s), lack of coordination or numbness Psychiatric Psychiatric: Denies anxiety Physical Exam Const alert, oriented x3 and no apparent distress Constitutional Narrative: super morbid obesity General Appearance: cooperative HEENT normocephalic, head/scalp atraumatic, moist oral mucous membranes and oropharynx normal Eyes PERRL and EOMs intact bilaterally Neck no lymphadenopathy and supple General: trachea midline Lymph Lymphatic: no lymphadenopathy noted and no lymphedema noted Resp Resp Narrative: mildly diminished breath sounds bibasally, no wheezes or crackles. On 2-3L of oxygen by nasal canula Cardio regular rate, regular rhythm, S1 normal heart sound, S2 normal heart sound and n o murmurs GI normal to inspection, nondistended, normoactive bowel sounds, soft to palpation, non-tender and non-distended GI Narrative: very obese abdomen Extremity Extremity Narrative: bilateral lymphedema, with mild erythema of both LEs and chronic stasis changes. Neuro CN's II-XII intact bilaterally, no focal motor deficits, no sensory deficits noted and deep tendon reflexes 2+ bilaterally Motor Exam: strength 5/5 throughout and general weakness Psych thought process normal and cooperative Appearance: appropriate Lab / Micro Data 05/27/23 05:15 05/27/23 05:15 Labs: Laboratory Results - last 24 hr 05/26/23 05:35: WBC 11.8 H, RBC 3.65 L, Hgb 7.9 L, Hct 29.3 L, MCV 80.3 L, MCH 21.6 L, MCHC 27.0 L, RDW Std Deviation 54.8 H, RDW Coeff of Fanny 19.0 H, Plt Count 276, MPV 9.2, Sodium 136, Potassium 4.0, Chloride 92 L, Carbon Dioxide 41.0 H, Anion Gap 3 L, BUN 12, Creatinine 0.71, Estim Creat Clear Calc 203.78, Est GFR (MDRD) Af Amer 113, Est GFR (MDRD) Non-Af 94, BUN/Creatinine Ratio 16.9, Glucose 130 H, Calcium 8.9 Imaging Radiology Impression Echocardiogram 05/26/23 07:54 Interpretation Summary The estimated ejection fraction is 65 %. Unable to assess diastolic dysfunction. Ordering Physician: Xochitl Cardoso Referring Physician: Mireille Dietz M.D. Performed By: Mercedes Small RCS Assessment & Plan Assessment/Plan (1) Anemia: PLAN: Plan Differential diagnosis for anemia is peptic ulcer disease, Mitchell's erosions, gastric antral vascular ectasia, peptic ulcer disease, H. pylori associated gastritis, neoplasia or angiodysplasia of the upper or lower GI tract. She should undergo an upper and lower endoscopy to evaluate upper and lower GI tract. Charges/Coding Visit Charges Inpatient E&M: 27484 Init Hosp L3 Multi Select Codes Visit Charges Visit Charges: 42225 Init Hosp L3
--- NOTE | 2023-05-26 16:40 | CHAPLAIN ---
Type of Pastoral Visit ___ Initial Visit ___ Follow-up Visit ___ On-call Visit ___ General Patient Visit ___ Spiritual Assessment ___ Family Conference ___ Bereavement ___ Rapid Response ___ Code Blue ___ Other (describe below) Pastoral Care Referral From ___ Patient ___ Family ___ Nurse ___ Physician ___ Cheese Packer ___ Retail Link Analyst ___ Other (describe below) Sacrament/Intervention ___ Active listening ___ Anointing ___ Catholic ___ Bereavement ___ Communion ___ Christiana exploration ___ ___ Life review ___ Prayer ___ Reconciliation ___ Sacrament of Sick ___ Supportive presence ___ Wedding ___ Other (describe below) Pastoral Comments patient was occupied at time of attempted visit
[2023-05-26] MEDS: Bisacodyl 5 MG Tablet 20 MG PO (18:44)
[2023-05-26] MEDS: Polyethylene Glycol 3350 BOWEL PREP PO (20:04)
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
[2023-05-27] MEDS: Dicyclomine 10 MG Capsule 20 MG PO ×4 (00:06→22:38)
[2023-05-27] MEDS: DULoxetine Hcl 20 MG Capsule PO ×3 (00:06→22:38)
[2023-05-27] MEDS: Montelukast 10 MG Tablet PO ×3 (00:07→22:38)
[2023-05-27] MEDS: Nystatin Powder 15gm Bottle 1 APPLIC TOPICAL ×3 (00:07→23:34)
[2023-05-27] MEDS: Pantoprazole Sodium 40 MG in 0.9% Normal Saline (100mL MB+) 100 ML 330 MG IV ×3 (00:09→22:41)
[2023-05-27] MEDS: HYDROcodone Bitartrate/Apap 5/325 Tablet PO ×3 (00:13→22:37)
[2023-05-27] MEDS: Vancomycin HCl 1,250 MG in 0.9% Normal Saline (250mL Bag) 250 ML 167 MG IV ×4 (00:16→23:34)
[2023-05-27 05:23] LABS: Absolute Lymphocyte Count 0.87 X10^3/uL (0.83-4.51); Absolute Neutrophil Count 10.9 X10^3/uL (2.0-7.7); Basophil# 0.02 X10^3/uL; Basophil% 0.2 % (0-1); Eosinophil# 0.33 X10^3/uL; Eosinophils% 2.6 % (0-5); Hematocrit 29.5 % (37-47); Hemoglobin 7.8 g/dL (12.0-15.0); Lymphocyte # 0.87 X10^3/ul (0.83-4.51); Lymphocyte % 6.8 % (19-41); Mean Corp Hgb Conc 26.4 g/dL (32-36); Mean Corpuscular Hgb 21.4 pg (27.0-32.0); Mean Corpuscular Volume 80.8 fL (81-99); Mean Platelet Vol. 8.9 fl (6.2-12.0); Monocyte# 0.64 X10^3/uL; NRBC Flagged by Analyzer 0.4 % (0-5); Neutrophil % 84.5 % (47-70); Platelet Count 279 K/mm3 (150-450); RBC Distribution Width CV 18.9 % (11.6-14.6); RBC Distribution Width SD 54.8 fl (35.1-43.9); Red Blood Count 3.65 M/mm3 (4.2-5.4); White Blood Count 12.9 K/mm3 (4.4-11.0)
[2023-05-27 05:31] LABS: International Normalized Ratio 1.1; Prothrombin Time (Protime)PT. 13.8 SECONDS (11.7-14.9)
[2023-05-27 05:32] LABS: Partial Thromboplast Time 30.5 Seconds (24.1-36.2)
[2023-05-27 05:45] LABS: Anion Gap 2 (5-15); BUN 11 mg/dL (7-18); BUN/Creat Ratio 15.9 RATIO (10-20); Calcium,Total 8.8 mg/dL (8.5-10.1); Chloride 92 mmol/L (98-107); Creatinine, Serum 0.69 mg/dL (0.55-1.02); EST Glomerular Filtration Rate 97 mL/min (>60); Est Glom Filt Rate - Afr Amer 118 mL/min (>60); Estimated Creatinine Clearance 209.69 ml/min; Glucose 131 mg/dL (74-106); Sodium Level 135 mmol/L (136-145)
[2023-05-27 05:48] LABS: Vancomycin, Trough Level 21.4 ug/mL (5.0-15.0)
[2023-05-27] MEDS: Ondansetron 4 MG/2 ML Vial IV ×2 (05:48→15:03)
[2023-05-27] MEDS: Gabapentin 300 MG Capsule PO ×2 (05:48→22:37)
[2023-05-27] MEDS: 0.9% Saline Lock 10 ML Syringe IV (05:49)
--- NOTE | 2023-05-27 06:11 | PCM.RX.CS ---
Consult Antibiotic Management Pharmacy has been consulted to manage selected antibiotic: Vancomycin Type of Intervention Type of Consult: Follow-up Labs Labs: Sodium 135 mmol/L (136-145) L 05/27/23 05:15 Potassium 4.0 mmol/L (3.5-5.1) 05/27/23 05:15 Chloride 92 mmol/L (98-107) L 05/27/23 05:15 Carbon Dioxide 41.0 mmol/L (21.0-32.0) H 05/27/23 05:15 Anion Gap 2 (5-15) L 05/27/23 05:15 BUN 11 mg/dL (7-18) 05/27/23 05:15 Creatinine 0.69 mg/dL (0.55-1.02) 05/27/23 05:15 Est GFR (MDRD) Af Amer 118 mL/min (>60) 05/27/23 05:15 Est GFR (MDRD) Non-Af 97 mL/min (>60) 05/27/23 05:15 BUN/Creatinine Ratio 15.9 RATIO (10-20) 05/27/23 05:15 Glucose 131 mg/dL (74-106) H 05/27/23 05:15 Vancomycin Trough 21.4 ug/mL (5.0-15.0) H 05/27/23 05:15 Pharmacy Plan for Drug Dosing Pharmacy Plan for Drug Dosing: Pharmacy Service will continue to monitor and adjust dosing as required. TROUGH 21.4 @ 5 HOURS, PREVIOUS DOSE 2 HOURS LATE. CONTINUE AND DRAW TROUGH IN 1 DAY Follow-Up Labs Follow-Up Labs: Trough: Vancomycin Date/Time Labs Ordered Labs to be done on [date and time ordered]: 05/27 @ 7210
[2023-05-27] MEDS: Bisacodyl 5 MG Tablet 20 MG PO (06:45)
[2023-05-27 07:14] VITALS: PULSE 104; RESP 20; O2SAT 94
[2023-05-27] MEDS: Budesonide Respules 0.5 MG/2 ML AMPUL.NEB. INHALATION ×2 (07:14→22:08)
[2023-05-27 08:37] VITALS: BP 140/71; PULSE 110; RESP 18; TEMP 36.6; O2SAT 94
[2023-05-27] MEDS: Polyethylene Glycol 3350 BOWEL PREP 1 BOTTLE PO (08:42)
--- NOTE | 2023-05-27 08:47 | PN.CC_ITS ---
Assessment & Plan Assessment/Plan (1) Acute on chronic respiratory failure with hypoxia and hypercapnia: (2) Fluid overload: QUALIFIERS: Hypervolemia type: other Qualified Code(s): E87.79 - Other fluid overload (3) Lymphedema: (4) Morbid obesity: (5) Cellulitis of left leg: PLAN: Plan RECOMMENDATIONS: 1. Wean supplemental oxygen to maintain saturations between 90 and 94%. 2. Encourage incentive spirometer use and mobilize patient as tolerated. 3. Continue empiric antibiotics pending cultures and diuresis as tolerated 4. Encourage BiPAP if patient is agreeable 5. Walking oximetry prior to discharge 6. Encourage nasal saline to maintain nasal patency IMPRESSIONS: 1. Acute hypoxemic respiratory failure secondary to volume overload Patient with acute on chronic hypercarbic respiratory failure on presentation. There is high clinical suspicion for alveolar hypoventilation, but patient will need to be euvolemic before a room air ABG can be obtained. Patient likely has an element of inability to compensate for cellulitis. Patient's failure to comply with BiPAP therapy does increase her risk for respiratory failure. Patient's mentation appears to be appropriate at this time, so we will hold off on any ABG. Bilateral infiltrates on chest x-ray with cephalization is suggestive of volume overloaded. Continue with diuresis and monitor clinically. 2. Suspected sleep apnea/alveolar hypoventilation The patient did present with a chronic elevated bicarbonate. Although she does report having had a sleep study done previously, she reported that she was told that she did not have sleep apnea. I highly doubt that the patient does not have some form of sleep apnea, based upon her body habitus. It is certainly reasonable to place the patient empirically on BiPAP therapy on a nightly basis, if she is agreeable. Patient is yet to use BiPAP overnight. Patient likely will require diuresis to assess for obesity hypoventilation syndrome. However, even with the diagnosis of OHS, it is unclear that the patient would accept a therapy of BiPAP 3. Super morbid obesity/anemia/self-reported asthma/cellulitis/neuropathy Complicates care, management, recovery and prognosis. Continue home medications as indicated. This note was generated with [employer] software. It may contain incorrect words, spelling, and punctuation that were not noted in checking the note before signing. Subjective Subjective Patient did okay overnight. Patient subjectively feels slightly improved compared to previous. Patient has had significant diuresis and feels that her legs are less tense. Patient does feel that the water is moving to my middle. Patient is not able to tolerate BiPAP despite recommendations. Objective Data Objective Data Vital Signs: Vital Signs Temp Pulse Resp BP Pulse Ox O2 Del Method O2 Flow Rate 36.6 C 110 H 18 140/71 H 94 Nasal Cannula 4 05/27/23 08:37 05/27/23 08:37 05/27/23 08:37 05/27/23 08:37 05/27/23 08:37 05/27/23 08:37 05/27/23 08:37 FiO2 35 05/23/23 16:40 Oxygen Flow Rate (L/min) 4 Oxygen Delivery Method Nasal Cannula Weight: 237 kg Body Mass Index (BMI) 84.3 Intake & Output: Intake and Output for Last 24 Hours 05/25/23 05/26/23 05/27/23 23:59 23:59 23:59 Intake Total 1340 / 1840 885 / 885 Output Total 1175 / 1825 1050 / 1050 Balance 165 / 15 -165 / -165 Lab / Micro Data Attestation: I reviewed the patient's lab results. 05/27/23 05:15 05/27/23 05:15 Labs: Laboratory Results - last 24 hr 05/27/23 05:15: WBC 12.9 H, RBC 3.65 L, Hgb 7.8 L, Hct 29.5 L, MCV 80.8 L, MCH 21.4 L, MCHC 26.4 L, RDW Std Deviation 54.8 H, RDW Coeff of Fanny 18.9 H, Plt Count 279, MPV 8.9, Immature Gran % (Auto) 0.900, Neut % (Auto) 84.5 H, Lymph % (Auto) 6.8 L, Beckham % (Auto) 5.0, Eos % (Auto) 2.6, Baso % (Auto) 0.2, Absolute Neuts (auto) 10.9 H, Absolute Lymphs (auto) 0.87, Nucleated RBC % 0.4, PT 13.8, INR 1.1, APTT 30.5, Sodium 135 L, Potassium 4.0, Chloride 92 L, Carbon Dioxide 41.0 H, Anion Gap 2 L, BUN 11, Creatinine 0.69, Estim Creat Clear Calc 209.69, Est GFR (MDRD) Af Amer 118, Est GFR (MDRD) Non-Af 97, BUN/Creatinine Ratio 15.9, Glucose 131 H, Calcium 8.8, Vancomycin Trough 21.4 H Radiography Diagnostic Testing: Radiology Impression Echocardiogram 05/26/23 07:54 Interpretation Summary The estimated ejection fraction is 65 %. Unable to assess diastolic dysfunction. Ordering Physician: Xochitl Cardoso Referring Physician: Mireille Dietz M.D. Performed By: Mercedes Small RCS Physical Exam Const alert, oriented x3 and no apparent distress Constitutional Narrative: On nasal cannula during my evaluation. Morbidly obese and appears older than stated age General Appearance: cooperative and comfortable HEENT normocephalic, head/scalp atraumatic and moist oral mucous membranes Eyes PERRL, EOMs intact bilaterally and conjunctivae normal Neck full ROM Chest inspection of chest normal Resp normal respiratory effort Resp Narrative: Limited exam secondary to body habitus. Auscultation: diminished lung sounds; Negative for rales, rhonchi or wheezes Cardio regular rate, regular rhythm, no murmurs and peripheral pulses 2+ throughout GI normal to inspection, nondistended, normoactive bowel sounds, soft to palpation, non-tender and non-distended Back/Spine normal ROM Extremity Extremity Narrative: Bilateral 4+ edema. There does appear to be some regression of erythema on the left lower extremity compared to area marked. Skin no rashes or lesions noted Neuro moves all extremities and no focal motor deficits Speech: speech normal Psych mental status grossly normal Charges/Coding Visit Charges Inpatient E&M: 53572 Subs Hosp L2
--- NOTE | 2023-05-27 10:44 | PN_ITS ---
Subjective Subjective Patient seen and examined. She complained of some lower extremity pain. She hasnt had any bowel movements overnight despite having had the prep. Review of systems was otherwise negative. Objective Data Objective Data Vital Signs: Vital Signs Temp Pulse Resp BP Pulse Ox O2 Del Method O2 Flow Rate 97.8 F 110 H 18 140/71 H 94 Nasal Cannula 4 05/27/23 08:37 05/27/23 08:37 05/27/23 08:37 05/27/23 08:37 05/27/23 08:37 05/27/23 08:37 05/27/23 08:37 FiO2 35 05/23/23 16:40 Oxygen Flow Rate (L/min) 4 Oxygen Delivery Method Nasal Cannula Weight: 522 lb 7.929 oz Body Mass Index (BMI) 84.3 Intake & Output: Intake and Output for Last 24 Hours 05/25/23 05/26/23 05/27/23 23:59 23:59 23:59 Intake Total 1340 / 1840 1270 / 1270 Output Total 1175 / 1825 1050 / 1050 Balance 165 / 15 220 / 220 Lab / Micro Data 05/27/23 05:15 05/27/23 05:15 Labs: Laboratory Results - last 24 hr 05/27/23 05:15: WBC 12.9 H, RBC 3.65 L, Hgb 7.8 L, Hct 29.5 L, MCV 80.8 L, MCH 21.4 L, MCHC 26.4 L, RDW Std Deviation 54.8 H, RDW Coeff of Fanny 18.9 H, Plt Count 279, MPV 8.9, Immature Gran % (Auto) 0.900, Neut % (Auto) 84.5 H, Lymph % (Auto) 6.8 L, [place] % (Auto) 5.0, Eos % (Auto) 2.6, Baso % (Auto) 0.2, Absolute Neuts (auto) 10.9 H, Absolute Lymphs (auto) 0.87, Nucleated RBC % 0.4, PT 13.8, INR 1.1, APTT 30.5, Sodium 135 L, Potassium 4.0, Chloride 92 L, Carbon Dioxide 41.0 H, Anion Gap 2 L, BUN 11, Creatinine 0.69, Estim Creat Clear Calc 209.69, Est GFR (MDRD) Af Amer 118, Est GFR (MDRD) Non-Af 97, BUN/Creatinine Ratio 15.9, Glucose 131 H, Calcium 8.8, Vancomycin Trough 21.4 H Radiography Diagnostic Testing: Radiology Impression Echocardiogram 05/26/23 07:54 Interpretation Summary The estimated ejection fraction is 65 %. Unable to assess diastolic dysfunction. Ordering Physician: Xochitl Cardoso Referring Physician: Mireille Dietz M.D. Performed By: Mercedes Small RCS Physical Exam Const alert, oriented x3 and no apparent distress Constitutional Narrative: super morbid obesity General Appearance: cooperative and comfortable HEENT normocephalic, head/scalp atraumatic, hearing grossly normal bilaterally, nasal mucous membranes and turbinates normal, moist oral mucous membranes and oropharynx normal Eyes PERRL, EOMs intact bilaterally and conjunctivae normal Neck full ROM, no lymphadenopathy, supple and no JVD General: trachea midline Lymph Lymphatic: no lymphadenopathy noted and no lymphedema noted Chest inspection of chest normal Resp normal respiratory effort and no use of accessory muscles Resp Narrative: mildly diminished breath sounds bibasally, no wheezes or crackles. On 4 L of oxygen by nasal canula Cardio regular rate, regular rhythm, S1 normal heart sound, S2 normal heart sound, no murmurs and peripheral pulses 2+ throughout GI normal to inspection, nondistended, normoactive bowel sounds, soft to palpation, non-tender and non-distended GI Narrative: very obese abdomen Back/Spine normal ROM Extremity Extremity Narrative: bilateral lymphedema, with mild erythema of both LEs and chronic stasis changes. General Extremity: edema Skin no rashes or lesions noted Skin Narrative: as under extremity Neuro CN's II-XII intact bilaterally, moves all extremities, no focal motor deficits, no sensory deficits noted and deep tendon reflexes 2+ bilaterally Speech: speech normal Motor Exam: strength 5/5 throughout and general weakness Psych mental status grossly normal, thought process normal, cooperative and affect normal Appearance: appropriate Assessment & Plan Assessment/Plan (1) Acute on chronic respiratory failure with hypoxia and hypercapnia: (2) Acute respiratory failure with hypoxia: PLAN: Plan #Acute on chronic hypoxic and hypercapnic respiratory failure in setting of untreated OFELIA and OHS * patient not tlerating BIPAP. On 4L of oxygen by nasal canula * pulmonology on board * breathing treatment wtih bronchodilators * titrate oxygen to maintain sats >90% * breathing treatment with bronchodilators * #BIlateral lower extremetiy lymphedema * had chronic stasis changes on lower extremities; little evidence for cellulitis * however she did have 1/2 positive blood cultures for staph epidermidis from cultures done at [facility] * repeat blood cultures still pending * wbc has trended up slightly to 12.9 * on IV vancomycin pending repeat blood cultures. Staph epidermidis most likely a contaminant. #Staph epidermidis bacteremia: as above #Acute on chronic anemia * Hb went as low as 7.6. Hb today is 7.8 * iron profile showed severe iron deficiency anemia * gastroenterology ordered * patient has no history of ulcers but does have a history of cervical and uterine cancer. She has no history of GI cancer nd doesnt think she has ever had a colonoscopy or EGD * in light of her young age, I think we need to get GI consult. GI therefore consulted * prophylactic lovenox discontinued. * on IV pantoprazole * Was given a bowel prep yesterday but has not had any bowel movement. Continue bowel prep in preparation for EGD and colonoscopy. * #Super morbid obesity. BMI is 84.3. Complicates acute care, expected recovery and prognosis. #Depression: On duloxetine DVT prophylaxis: SCDs. Charges/Coding Visit Charges Inpatient E&M: 56215 Subs Hosp L2
[2023-05-27] MEDS: Ferrous Sulfate 325 MG Tablet PO (11:01)
--- NOTE | 2023-05-27 11:56 | NURSING ---
Miralax mixed with powerade given to patient several hours ago, not drinking. Advised that she needs to get the medication in so that she can have the colonoscopy. She states she was sleeping and couldn't drink it, she is up in the chair conversing the with supervisor cytology.
[2023-05-27 14:38] VITALS: BP 127/63; PULSE 102; RESP 14; TEMP 36.8; O2SAT 97
--- NOTE | 2023-05-27 15:27 | CHAPLAIN ---
Type of Pastoral Visit _x__ Initial Visit ___ Follow-up Visit ___ On-call Visit ___ General Patient Visit ___ Spiritual Assessment ___ Family Conference ___ Bereavement ___ Rapid Response ___ Code Blue ___ Other (describe below) Pastoral Care Referral From _x__ Patient ___ Family ___ Nurse ___ Physician ___ Body Welder ___ Map Editor ___ Other (describe below) Sacrament/Intervention _x__ Active listening ___ Anointing ___ Synagogue ___ Bereavement ___ Communion ___ Christiana exploration ___ _x__ Life review _x__ Prayer ___ Reconciliation ___ Sacrament of Sick _x__ Supportive presence ___ Wedding ___ Other (describe below) Pastoral Comments this patient has been seen previously in contexts outside of this hospital; pt reviews some of her current situation and concerns; pt states that she does not believe she will have much longer time to live; asked about how she believes that and how she feels about it, the patient describes getting to do those things on her list, such as seeing her children raised; pt admits disappointment at missing out on an opportunity to go to [place] which is out of the question now; pt looks forward to a civil union service for a family member in December; when asked about her needs or concerns the patient speaks of financial needs and having someone handle the paperwork for me because I can't drive to the offices; this senior ui software engineer contacted the SW who is aware of these concerns and has provided paperwork, SW will follow up with more assistance as able; pt is talkative and expressive of self; pt is offered prayer and she accepts
--- NOTE | 2023-05-27 16:25 | PN.GI_ITS ---
Subjective Subjective Patient has not had much bowel movements from the prep. This is likely secondary to immobility. Objective Data Objective Data Vital Signs: Vital Signs Temp Pulse Resp BP Pulse Ox O2 Del Method O2 Flow Rate 98.2 F 102 H 14 127/63 H 97 Nasal Cannula 4 05/27/23 14:38 05/27/23 14:38 05/27/23 14:38 05/27/23 14:38 05/27/23 14:38 05/27/23 14:38 05/27/23 14:38 FiO2 35 05/23/23 16:40 Oxygen Flow Rate (L/min) 4 Oxygen Delivery Method Nasal Cannula Weight: 522 lb 7.929 oz Body Mass Index (BMI) 84.3 Intake & Output: Intake and Output for Last 24 Hours 05/25/23 05/26/23 05/27/23 23:59 23:59 23:59 Intake Total 1340 / 1840 2070 / 2070 Output Total 1175 / 1825 1050 / 1050 Balance 165 / 15 1020 / 1020 Lab / Micro Data 05/27/23 05:15 05/27/23 05:15 Labs: Laboratory Results - last 24 hr 05/27/23 05:15: WBC 12.9 H, RBC 3.65 L, Hgb 7.8 L, Hct 29.5 L, MCV 80.8 L, MCH 21.4 L, MCHC 26.4 L, RDW Std Deviation 54.8 H, RDW Coeff of Fanny 18.9 H, Plt Count 279, MPV 8.9, Immature Gran % (Auto) 0.900, Neut % (Auto) 84.5 H, Lymph % (Auto) 6.8 L, [place] % (Auto) 5.0, Eos % (Auto) 2.6, Baso % (Auto) 0.2, Absolute Neuts (auto) 10.9 H, Absolute Lymphs (auto) 0.87, Nucleated RBC % 0.4, PT 13.8, INR 1.1, APTT 30.5, Sodium 135 L, Potassium 4.0, Chloride 92 L, Carbon Dioxide 41.0 H, Anion Gap 2 L, BUN 11, Creatinine 0.69, Estim Creat Clear Calc 209.69, Est GFR (MDRD) Af Amer 118, Est GFR (MDRD) Non-Af 97, BUN/Creatinine Ratio 15.9, Glucose 131 H, Calcium 8.8, Vancomycin Trough 21.4 H Physical Exam Const alert, oriented x3 and no apparent distress Constitutional Narrative: morbid obesity General Appearance: cooperative and comfortable HEENT normocephalic, head/scalp atraumatic, hearing grossly normal bilaterally, nasal mucous membranes and turbinates normal, moist oral mucous membranes and oropharynx normal Eyes PERRL, EOMs intact bilaterally and conjunctivae normal Neck full ROM, no lymphadenopathy, supple and no JVD General: trachea midline Lymph Lymphatic: no lymphadenopathy noted and no lymphedema noted Chest inspection of chest normal Resp normal respiratory effort and no use of accessory muscles Resp Narrative: mildly diminished breath sounds bibasally, no wheezes or crackles. On 4 L of oxygen by nasal canula Cardio regular rate, regular rhythm, S1 normal heart sound, S2 normal heart sound, no murmurs and peripheral pulses 2+ throughout GI normal to inspection, nondistended, normoactive bowel sounds, soft to palpation, non-tender and non-distended GI Narrative: very obese abdomen Back/Spine normal ROM Extremity Extremity Narrative: bilateral lymphedema, with mild erythema of both LEs and chronic stasis changes. General Extremity: edema Skin no rashes or lesions noted Skin Narrative: as under extremity Neuro CN's II-XII intact bilaterally, moves all extremities, no focal motor deficits, no sensory deficits noted and deep tendon reflexes 2+ bilaterally Speech: speech normal Motor Exam: strength 5/5 throughout and general weakness Psych mental status grossly normal, thought process normal, cooperative and affect normal Appearance: appropriate Assessment & Plan Assessment/Plan (1) Anemia: PLAN: Plan Differential diagnosis for anemia is peptic ulcer disease, Mitchell's erosions, gastric antral vascular ectasia, peptic ulcer disease, H. pylori associated gastritis, neoplasia or angiodysplasia of the upper or lower GI tract. She should undergo an upper and lower endoscopy to evaluate upper and lower GI tract. 05/27/23-continue bowel prep as previously ordered. I will give her dose of azithromycin to hopefully stimulate the bowels along with put her on Reglan therapy. If she is cleared by tomorrow then we will perform an upper or lower endoscopy if not we will continue to prep her. Charges/Coding Visit Charges Inpatient E&M: 96543 Subs Hosp L3
[2023-05-27] MEDS: Azithromycin 500 MG in Dextrose 5%-Water (250mL Bag) 250 ML 250 MG IV (18:10)
[2023-05-27] MEDS: Metoclopramide 10 MG/2 ML Vial 5 MG IV (18:10)
[2023-05-27 22:09] VITALS: RESP 18
[2023-05-27 22:40] VITALS: BP 131/76; PULSE 105; RESP 18; TEMP 36.4; O2SAT 99
[2023-05-28] MEDS: Metoclopramide 10 MG/2 ML Vial 5 MG IV ×4 (01:08→18:29)
[2023-05-28] MEDS: Gabapentin 300 MG Capsule PO (06:25)
[2023-05-28] MEDS: HYDROcodone Bitartrate/Apap 5/325 Tablet PO ×2 (06:25→16:36)
[2023-05-28] MEDS: 0.9% Saline Lock 10 ML Syringe IV ×4 (06:28→18:31)
[2023-05-28 06:30] VITALS: BP 151/75; PULSE 107; RESP 18; TEMP 36.4; O2SAT 99
[2023-05-28 06:53] LABS: Anion Gap 4 (5-15); BUN 9 mg/dL (7-18); BUN/Creat Ratio 14.6 RATIO (10-20); Chloride 92 mmol/L (98-107); Creatinine, Serum 0.62 mg/dL (0.55-1.02); EST Glomerular Filtration Rate 111 mL/min (>60); Est Glom Filt Rate - Afr Amer 134 mL/min (>60); Estimated Creatinine Clearance 233.36 ml/min; Glucose 116 mg/dL (74-106); Potassium 3.7 mmol/L (3.5-5.1); Sodium Level 136 mmol/L (136-145)
[2023-05-28 06:58] LABS: Vancomycin, Trough Level 24.3 ug/mL (5.0-15.0)
[2023-05-28 06:59] LABS: Absolute Lymphocyte Count 0.95 X10^3/uL (0.83-4.51); Absolute Neutrophil Count 9.8 X10^3/uL (2.0-7.7); Basophil# 0.03 X10^3/uL; Basophil% 0.3 % (0-1); Eosinophil# 0.27 X10^3/uL; Eosinophils% 2.3 % (0-5); Hemoglobin 7.7 g/dL (12.0-15.0); Lymphocyte # 0.95 X10^3/ul (0.83-4.51); Mean Corp Hgb Conc 26.6 g/dL (32-36); Mean Corpuscular Hgb 21.4 pg (27.0-32.0); Mean Corpuscular Volume 80.6 fL (81-99); Monocyte# 0.65 X10^3/uL; Monocyte% 5.5 % (0-10); NRBC Flagged by Analyzer 0.4 % (0-5); Neutrophil # 9.83 X10^3/uL (2.7-7.7); Neutrophil % 82.8 % (47-70); Platelet Count 257 K/mm3 (150-450); RBC Distribution Width SD 54.5 fl (35.1-43.9); White Blood Count 11.9 K/mm3 (4.4-11.0)
[2023-05-28 07:02] VITALS: PULSE 98; RESP 20; O2SAT 96
[2023-05-28] MEDS: Budesonide Respules 0.5 MG/2 ML AMPUL.NEB. INHALATION ×3 (07:02→19:56)
--- NOTE | 2023-05-28 07:09 | PCM.RX.CS ---
Consult Antibiotic Management Pharmacy has been consulted to manage selected antibiotic: Vancomycin Type of Intervention Type of Consult: Follow-up Suspected Infection Suspected Infection: Pneumonia Prior Doses of Antibiotics Prior Doses of Antibiotics Received/Current Regimen: Currently on 1250mg iv q8h. Labs Labs: Sodium 136 mmol/L (136-145) 05/28/23 06:19 Potassium 3.7 mmol/L (3.5-5.1) 05/28/23 06:19 Chloride 92 mmol/L (98-107) L 05/28/23 06:19 Carbon Dioxide 40.0 mmol/L (21.0-32.0) H 05/28/23 06:19 Anion Gap 4 (5-15) L 05/28/23 06:19 BUN 9 mg/dL (7-18) 05/28/23 06:19 Creatinine 0.62 mg/dL (0.55-1.02) 05/28/23 06:19 Est GFR (MDRD) Af Amer 134 mL/min (>60) 05/28/23 06:19 Est GFR (MDRD) Non-Af 111 mL/min (>60) 05/28/23 06:19 BUN/Creatinine Ratio 14.6 RATIO (10-20) 05/28/23 06:19 Glucose 116 mg/dL (74-106) H 05/28/23 06:19 Vancomycin Trough 24.3 ug/mL (5.0-15.0) H 05/28/23 06:19 Dosing Weight Weight used for dosin kg Estimated Creatinine Clearance Estimated Creatinine Clearance: >100 ml/mi Goal Trough Goal Trough: 15-20 mcg/mL Pharmacy Plan for Drug Dosing Pharmacy Plan for Drug Dosing: Trough today 24.3. Above desired level of 15-20mcg/ml. Hold dosing and get random level 12 hrs after trough level. Determine new dose and resume when level </=20. Pharmacy Service will continue to monitor and adjust dosing as required. Follow-Up Labs Follow-Up Labs: Trough: Other (vanco random level 3.13.24 @18)
--- NOTE | 2023-05-28 08:03 | PCM.PN.INT ---
Assessment & Plan Assessment/Plan (1) Acute on chronic respiratory failure with hypoxia and hypercapnia: (2) Fluid overload: QUALIFIERS: Hypervolemia type: other Qualified Code(s): E87.79 - Other fluid overload (3) Lymphedema: (4) Morbid obesity: (5) Cellulitis of left leg: PLAN: Plan RECOMMENDATIONS: 1. Wean supplemental oxygen to maintain saturations between 90 and 94%. 2. Encourage incentive spirometer use and mobilize patient as tolerated. 3. Continue empiric antibiotics pending cultures and diuresis as tolerated 4. Encourage BiPAP if patient is agreeable 5. Walking oximetry prior to discharge 6. Encourage nasal saline to maintain nasal patency IMPRESSIONS: 1. Acute hypoxemic respiratory failure secondary to volume overload Patient with acute on chronic hypercarbic respiratory failure on presentation. There is high clinical suspicion for alveolar hypoventilation, but patient will need to be euvolemic before a room air ABG can be obtained. It is unclear if documentation of this diagnosis with matters patient is highly resistant to BiPAP therapy. Patient likely has an element of inability to compensate for cellulitis. Patient's failure to comply with BiPAP therapy does increase her risk for respiratory failure. Patient's mentation appears to be appropriate at this time, so we will hold off on any ABG. Bilateral infiltrates on chest x-ray with cephalization is suggestive of volume overloaded. Patient positive over the last 24 hours. Reorder diuresis and monitor clinically. 2. Suspected sleep apnea/alveolar hypoventilation The patient did present with a chronic elevated bicarbonate. Although she does report having had a sleep study done previously, she reported that she was told that she did not have sleep apnea. I highly doubt that the patient does not have some form of sleep apnea, based upon her body habitus. It is certainly reasonable to place the patient empirically on BiPAP therapy on a nightly basis, if she is agreeable. Patient is yet to use BiPAP overnight. Patient likely will require diuresis to assess for obesity hypoventilation syndrome. However, even with the diagnosis of OHS, it is unclear that the patient would accept a therapy of BiPAP 3. Super morbid obesity/anemia/self-reported asthma/cellulitis/neuropathy Complicates care, management, recovery and prognosis. Continue home medications as indicated. This note was generated with [employer] software. It may contain incorrect words, spelling, and punctuation that were not noted in checking the note before signing. Subjective Subjective Patient did okay overnight. No acute issues were reported. Patient reportedly undergoing bowel prep, but had only 1 bowel movement documented overnight. No obvious bleeding reported. Objective Data Objective Data Vital Signs: Vital Signs Temp Pulse Resp BP Pulse Ox O2 Del Method O2 Flow Rate 36.4 C L 107 H 18 151/75 H 99 Nasal Cannula 4 05/28/23 06:30 05/28/23 06:30 05/28/23 06:30 05/28/23 06:30 05/28/23 06:30 05/28/23 06:30 05/28/23 06:30 FiO2 35 05/23/23 16:40 Oxygen Flow Rate (L/min) 4 Oxygen Delivery Method Nasal Cannula Weight: 237 kg Body Mass Index (BMI) 84.3 Intake & Output: Intake and Output for Last 24 Hours 05/26/23 05/27/23 05/28/23 23:59 23:59 23:59 Intake Total 1340 / 1840 2850 / 3550 1785 / 1785 Output Total 1175 / 1825 2050 / 2650 1100 / 1100 Balance 165 / 15 800 / 900 685 / 685 Lab / Micro Data Attestation: I reviewed the patient's lab results. 05/28/23 06:19 05/28/23 06:19 Labs: Laboratory Results - last 24 hr 05/28/23 06:19: WBC 11.9 H, RBC 3.60 L, Hgb 7.7 L, Hct 29.0 L, MCV 80.6 L, MCH 21.4 L, MCHC 26.6 L, RDW Std Deviation 54.5 H, RDW Coeff of Fanny 19.0 H, Plt Count 257, MPV 9.0, Immature Gran % (Auto) 1.100 H, Neut % (Auto) 82.8 H, Lymph % (Auto) 8.0 L, [place] % (Auto) 5.5, Eos % (Auto) 2.3, Baso % (Auto) 0.3, Absolute Neuts (auto) 9.8 H, Absolute Lymphs (auto) 0.95, Nucleated RBC % 0.4, Sodium 136, Potassium 3.7, Chloride 92 L, Carbon Dioxide 40.0 H, Anion Gap 4 L, BUN 9, Creatinine 0.62, Estim Creat Clear Calc 233.36, Est GFR (MDRD) Af Amer 134, Est GFR (MDRD) Non-Af 111, BUN/Creatinine Ratio 14.6, Glucose 116 H, Calcium 9.0, Vancomycin Trough 24.3 H Physical Exam Const no apparent distress Constitutional Narrative: Sleeping comfortably on nasal cannula during my evaluation. Morbidly obese and appears older than stated age. Patient did have witnessed apneic events General Appearance: cooperative and comfortable HEENT normocephalic, head/scalp atraumatic and moist oral mucous membranes Eyes PERRL, EOMs intact bilaterally and conjunctivae normal Neck full ROM Chest inspection of chest normal Resp normal respiratory effort Resp Narrative: Limited exam secondary to body habitus. Auscultation: diminished lung sounds; Negative for rales, rhonchi or wheezes Cardio regular rate, regular rhythm, no murmurs and peripheral pulses 2+ throughout GI normal to inspection, nondistended, normoactive bowel sounds, soft to palpation, non-tender and non-distended Back/Spine normal ROM Extremity Extremity Narrative: Bilateral 4+ edema. There does appear to be stability of erythema on the left lower extremity compared to area marked. Skin no rashes or lesions noted Neuro moves all extremities and no focal motor deficits Speech: speech normal Psych mental status grossly normal Charges/Coding Visit Charges Inpatient E&M: 98528 Subs Hosp L2
[2023-05-28 08:55] VITALS: BP 113/60; PULSE 104; RESP 18; TEMP 36.4; O2SAT 99
[2023-05-28] MEDS: Pantoprazole Sodium 40 MG in 0.9% Normal Saline (100mL MB+) 100 ML 330 MG IV ×2 (08:59→21:44)
[2023-05-28] MEDS: Furosemide 40 MG/4 ML Vial IV ×2 (09:06→18:29)
--- NOTE | 2023-05-28 10:30 | CASEMGMT ---
Addendum entered by Jyotsna Pearson 05/28/23 16:12: 1430 RN KATHIE received call back from [facility] and they are still not able to accept patient. RN KATHIE updated CM Darletta regarding patient not being accepted. Addendum entered by Jyotsna Pearson 05/28/23 12:24: JAN VÁZQUEZ received call from Rimma at [facility] updating that Nithya spoke with louisa. Per Rimma, patient states she need custodial HHC and they are not able to accept patient. RN CM in to discuss [facility] needs with patient and asked what patient is needing for terminal makeup operator HHC. Patient states she is needing custodial therapy. JAN VÁZQUEZ explained that therapy is not terminal makeup operator and that therapy will rehab her to her potential and she will have to continue exercises at home on her own. Patient voiced understanding. JAN VÁZQUEZ called and left message [facility] with updated information, awaiting call back. Original Note: JAN VÁZQUEZ updated by discharge director financial planning that patient has not been accepted for C despite several referrals. RN KATHIE called and made referral to [facility]. Per Rimma, they are concerned regarding chronic wounds. RN KATHIE inquired if referral was sent to wound center, would they be able to accept. Per Rimma, Nithya [facility] meat processing center manager to come over and assess patient. CM will continue to follow this patient and plan for safe discharge.
--- NOTE | 2023-05-28 12:38 | PN_ITS ---
Subjective Subjective Patient seen and examined. She had no complaints. She is due for EGD and colonoscopy today. REview of systems is otherwise negative. Objective Data Objective Data Vital Signs: Vital Signs Temp Pulse Resp BP Pulse Ox O2 Del Method O2 Flow Rate 97.6 F L 104 H 18 113/60 99 Nasal Cannula 4 05/28/23 08:55 05/28/23 08:55 05/28/23 08:55 05/28/23 08:55 05/28/23 08:55 05/28/23 08:55 05/28/23 08:55 FiO2 35 05/23/23 16:40 Oxygen Flow Rate (L/min) 4 Oxygen Delivery Method Nasal Cannula Weight: 522 lb 7.929 oz Body Mass Index (BMI) 84.3 Intake & Output: Intake and Output for Last 24 Hours 05/26/23 05/27/23 05/28/23 23:59 23:59 23:59 Intake Total 1340 / 1840 2850 / 3550 1895 / 1895 Output Total 1175 / 1825 2050 / 2650 2600 / 2600 Balance 165 / 15 800 / 900 -705 / -705 Lab / Micro Data 05/28/23 06:19 05/28/23 06:19 Labs: Laboratory Results - last 24 hr 05/28/23 06:19: WBC 11.9 H, RBC 3.60 L, Hgb 7.7 L, Hct 29.0 L, MCV 80.6 L, MCH 21.4 L, MCHC 26.6 L, RDW Std Deviation 54.5 H, RDW Coeff of Fanny 19.0 H, Plt Count 257, MPV 9.0, Immature Gran % (Auto) 1.100 H, Neut % (Auto) 82.8 H, Lymph % (Auto) 8.0 L, [place] % (Auto) 5.5, Eos % (Auto) 2.3, Baso % (Auto) 0.3, Absolute Neuts (auto) 9.8 H, Absolute Lymphs (auto) 0.95, Nucleated RBC % 0.4, Sodium 136, Potassium 3.7, Chloride 92 L, Carbon Dioxide 40.0 H, Anion Gap 4 L, BUN 9, Creatinine 0.62, Estim Creat Clear Calc 233.36, Est GFR (MDRD) Af Amer 134, Est GFR (MDRD) Non-Af 111, BUN/Creatinine Ratio 14.6, Glucose 116 H, Calcium 9.0, Vancomycin Trough 24.3 H Physical Exam Const alert, oriented x3 and no apparent distress Constitutional Narrative: super morbid obesity General Appearance: cooperative and comfortable HEENT normocephalic, head/scalp atraumatic, hearing grossly normal bilaterally, nasal mucous membranes and turbinates normal, moist oral mucous membranes and oropharynx normal Eyes PERRL, EOMs intact bilaterally and conjunctivae normal Neck full ROM, no lymphadenopathy, supple and no JVD General: trachea midline Lymph Lymphatic: no lymphadenopathy noted and no lymphedema noted Chest inspection of chest normal Resp normal respiratory effort and no use of accessory muscles Resp Narrative: mildly diminished breath sounds bibasally, no wheezes or crackles. Remains on 4 L of oxygen by nasal canula Cardio regular rate, regular rhythm, S1 normal heart sound, S2 normal heart sound, no murmurs and peripheral pulses 2+ throughout GI normal to inspection, nondistended, normoactive bowel sounds, soft to palpation, non-tender and non-distended GI Narrative: very obese abdomen Back/Spine normal ROM Extremity Extremity Narrative: bilateral lymphedema, with mild erythema of both LEs and chronic stasis changes. General Extremity: edema Skin Skin Narrative: as under extremity Neuro CN's II-XII intact bilaterally, moves all extremities, no focal motor deficits, no sensory deficits noted and deep tendon reflexes 2+ bilaterally Speech: speech normal Motor Exam: strength 5/5 throughout and general weakness Psych mental status grossly normal, thought process normal, cooperative and affect normal Appearance: appropriate Assessment & Plan Assessment/Plan (1) Acute on chronic respiratory failure with hypoxia and hypercapnia: (2) Acute respiratory failure with hypoxia: PLAN: Plan #Acute on chronic hypoxic and hypercapnic respiratory failure in setting of untreated OFELIA and OHS * remains on 4L of oxygen by nasal canula * pulmonology on board * breathing treatment wtih bronchodilators * titrate oxygen to maintain sats >90% * breathing treatment with bronchodilators * 2D echo showed EF of 65% with no regional wall motion abnormalities noted unable to assess diastolic function. #BIlateral lower extremity lymphedema * had chronic stasis changes on lower extremities; little evidence for cellulitis * however she did have 1/2 positive blood cultures for staph epidermidis from cultures done at [facility] * repeat blood cultures still pending * vancomycin discontinued today. * #Staph epidermidis bacteremia: as above #Acute on chronic anemia * Hb went as low as 7.6. Hb today is 7.7 * iron profile showed severe iron deficiency anemia * gastroenterology oon board. * patient has no history of ulcers but does have a history of cervical and uterine cancer. She has no history of GI cancer nd doesnt think she has ever had a colonoscopy or EGD * in light of her young age, I think we need to get GI consult. GI therefore consulted * prophylactic lovenox discontinued. * on IV pantoprazole * for EGD and colonoscopy today * * #Super morbid obesity. BMI is 84.3. Complicates acute care, expected recovery and prognosis. #Depression: On duloxetine DVT prophylaxis: SCDs. Charges/Coding Visit Charges Inpatient E&M: 25293 Subs Hosp L2
[2023-05-28 15:00] VITALS: BP 125/71; PULSE 106; RESP 16; TEMP 35.8; O2SAT 100
[2023-05-28] MEDS: Acetaminophen 325 MG Tablet 650 MG PO (15:10)
[2023-05-28] MEDS: Ondansetron 4 MG/2 ML Vial IV (15:10)
[2023-05-28] MEDS: Dicyclomine 10 MG Capsule 20 MG PO ×2 (16:38→21:44)
--- NOTE | 2023-05-28 17:40 | CASEMGMT ---
JAN VÁZQUEZ NOTE: JAN VÁZQUEZ to room. Pt sitting up in chair in room. Introduced self and role. Pt made aware [facility] unable to accept her and no other [facility] agencies able to accept her. Pt states how she feel she is doing terrible getting around in her room and feels she needs therapy at discharge. Pt states she may consider going to a SNF at discharge, but states she would have to think about it and states she needs to talk to a few people first before making that decision. JAN VÁZQUEZ let her know either CM or SW would f/u with her tomorrow and could provide a list of SNF's to review if she would like. She states will think about it and let CM/SW know tomorrow. Shira SMITH RN, CM
[2023-05-28 19:56] VITALS: PULSE 105; RESP 18; O2SAT 98
--- NOTE | 2023-05-28 20:03 | PN.GI_ITS ---
Subjective Subjective Patient completed another prep, but she still is not clear. Objective Data Objective Data Vital Signs: Vital Signs Temp Pulse Resp BP Pulse Ox O2 Del Method O2 Flow Rate 96.5 F L 106 H 16 125/71 H 100 Nasal Cannula 3 05/28/23 15:00 05/28/23 15:00 05/28/23 15:00 05/28/23 15:00 05/28/23 15:00 05/28/23 15:00 05/28/23 15:00 FiO2 35 05/23/23 16:40 Oxygen Flow Rate (L/min) 3 Oxygen Delivery Method Nasal Cannula Weight: 522 lb 7.929 oz Body Mass Index (BMI) 84.3 Intake & Output: Intake and Output for Last 24 Hours 05/26/23 05/27/23 05/28/23 23:59 23:59 23:59 Intake Total 1340 / 1840 2850 / 3550 2495 / 2495 Output Total 1175 / 1825 2050 / 2650 3900 / 3900 Balance 165 / 15 800 / 900 -1405 / -1405 Lab / Micro Data 05/28/23 06:19 05/28/23 06:19 Labs: Laboratory Results - last 24 hr 05/28/23 06:19: WBC 11.9 H, RBC 3.60 L, Hgb 7.7 L, Hct 29.0 L, MCV 80.6 L, MCH 21.4 L, MCHC 26.6 L, RDW Std Deviation 54.5 H, RDW Coeff of Fanny 19.0 H, Plt Count 257, MPV 9.0, Immature Gran % (Auto) 1.100 H, Neut % (Auto) 82.8 H, Lymph % (Auto) 8.0 L, [place] % (Auto) 5.5, Eos % (Auto) 2.3, Baso % (Auto) 0.3, Absolute Neuts (auto) 9.8 H, Absolute Lymphs (auto) 0.95, Nucleated RBC % 0.4, Sodium 136, Potassium 3.7, Chloride 92 L, Carbon Dioxide 40.0 H, Anion Gap 4 L, BUN 9, Creatinine 0.62, Estim Creat Clear Calc 233.36, Est GFR (MDRD) Af Amer 134, Est GFR (MDRD) Non-Af 111, BUN/Creatinine Ratio 14.6, Glucose 116 H, Calcium 9.0, Vancomycin Trough 24.3 H 05/28/23 18:00: Random Vancomycin 14.0 Physical Exam Const alert, oriented x3 and no apparent distress Constitutional Narrative: super morbid obesity General Appearance: cooperative and comfortable HEENT normocephalic, head/scalp atraumatic, hearing grossly normal bilaterally, nasal mucous membranes and turbinates normal, moist oral mucous membranes and o ropharynx normal Eyes PERRL, EOMs intact bilaterally and conjunctivae normal Neck full ROM, no lymphadenopathy, supple and no JVD General: trachea midline Lymph Lymphatic: no lymphadenopathy noted and no lymphedema noted Chest inspection of chest normal Resp normal respiratory effort and no use of accessory muscles Resp Narrative: mildly diminished breath sounds bibasally, no wheezes or crackles. Remains on 4 L of oxygen by nasal canula Cardio regular rate, regular rhythm, S1 normal heart sound, S2 normal heart sound, no murmurs and peripheral pulses 2+ throughout GI normal to inspection, nondistended, normoactive bowel sounds, soft to palpation, non-tender and non-distended GI Narrative: very obese abdomen Back/Spine normal ROM Extremity Extremity Narrative: bilateral lymphedema, with mild erythema of both LEs and chronic stasis changes. General Extremity: edema Skin Skin Narrative: as under extremity Neuro CN's II-XII intact bilaterally, moves all extremities, no focal motor deficits, no sensory deficits noted and deep tendon reflexes 2+ bilaterally Speech: speech normal Motor Exam: strength 5/5 throughout and general weakness Psych mental status grossly normal, thought process normal, cooperative and affect normal Appearance: appropriate Assessment & Plan Assessment/Plan (1) Anemia: PLAN: Plan Differential diagnosis for anemia is peptic ulcer disease, Mitchell's erosions, gastric antral vascular ectasia, peptic ulcer disease, H. pylori associated gastritis, neoplasia or angiodysplasia of the upper or lower GI tract. She should undergo an upper and lower endoscopy to evaluate upper and lower GI tract. 05/27/23-continue bowel prep as previously ordered. I will give her dose of azithromycin to hopefully stimulate the bowels along with put her on Reglan therapy. If she is cleared by tomorrow then we will perform an upper or lower endoscopy if not we will continue to prep her. 05/28/23- EGD and colonoscopy tomorrow to determine the ideology of patient anemia. Charges/Coding Visit Charges Inpatient E&M: 59206 Subs Hosp L3
[2023-05-28 21:00] VITALS: BP 140/72; PULSE 106; RESP 17; TEMP 36.6; O2SAT 92
[2023-05-28] MEDS: DULoxetine Hcl 20 MG Capsule PO (21:44)
[2023-05-28] MEDS: Montelukast 10 MG Tablet PO (21:44)
[2023-05-29] VITALS (11 sets, daily range): BP systolic 122–163; BP diastolic 62–76; PULSE 100–113; RESP 14–19; TEMP 36.1–37; O2SAT 85–98; BMI 84.3
[2023-05-29] MEDS: Metoclopramide 10 MG/2 ML Vial 5 MG IV ×3 (00:06→16:29)
[2023-05-29] MEDS: Gabapentin 300 MG Capsule PO ×3 (02:23→20:50)
[2023-05-29] MEDS: HYDROcodone Bitartrate/Apap 5/325 Tablet PO ×3 (03:58→20:50)
[2023-05-29 06:36] LABS: Absolute Lymphocyte Count 1.08 X10^3/uL (0.83-4.51); Absolute Neutrophil Count 8.3 X10^3/uL (2.0-7.7); Basophil# 0.01 X10^3/uL; Basophil% 0.1 % (0-1); Eosinophil# 0.29 X10^3/uL; Eosinophils% 2.8 % (0-5); Hemoglobin 7.3 g/dL (12.0-15.0); Lymphocyte # 1.08 X10^3/ul (0.83-4.51); Lymphocyte % 10.3 % (19-41); Mean Corp Hgb Conc 26.1 g/dL (32-36); Mean Corpuscular Hgb 20.7 pg (27.0-32.0); Mean Corpuscular Volume 79.3 fL (81-99); Mean Platelet Vol. 8.9 fl (6.2-12.0); Monocyte% 6.7 % (0-10); NRBC Flagged by Analyzer 0.6 % (0-5); Neutrophil # 8.26 X10^3/uL (2.7-7.7); Platelet Count 265 K/mm3 (150-450); RBC Distribution Width SD 53.6 fl (35.1-43.9); Red Blood Count 3.53 M/mm3 (4.2-5.4); White Blood Count 10.5 K/mm3 (4.4-11.0)
[2023-05-29] MEDS: Budesonide Respules 0.5 MG/2 ML AMPUL.NEB. INHALATION (07:09)
[2023-05-29 07:19] LABS: Anion Gap 5 (5-15); BUN 7 mg/dL (7-18); BUN/Creat Ratio 10.2 RATIO (10-20); Chloride 90 mmol/L (98-107); Creatinine, Serum 0.68 mg/dL (0.55-1.02); EST Glomerular Filtration Rate 98 mL/min (>60); Est Glom Filt Rate - Afr Amer 119 mL/min (>60); Estimated Creatinine Clearance 212.77 ml/min; Glucose 107 mg/dL (74-106); Potassium 3.1 mmol/L (3.5-5.1); Sodium Level 138 mmol/L (136-145)
--- NOTE | 2023-05-29 07:52 | PCM.PN.INT ---
Assessment & Plan Assessment/Plan (1) Acute on chronic respiratory failure with hypoxia and hypercapnia: (2) Fluid overload: QUALIFIERS: Hypervolemia type: other Qualified Code(s): E87.79 - Other fluid overload (3) Lymphedema: (4) Morbid obesity: (5) Cellulitis of left leg: PLAN: Plan RECOMMENDATIONS: 1. Wean supplemental oxygen to maintain saturations between 90 and 94%. 2. Encourage incentive spirometer use and mobilize patient as tolerated. 3. Continue empiric antibiotics pending cultures and diuresis as tolerated 4. Encourage BiPAP if patient is agreeable 5. Walking oximetry prior to discharge 6. Electrolyte repletion has been ordered IMPRESSIONS: 1. Acute hypoxemic respiratory failure secondary to volume overload Patient with acute on chronic hypercarbic respiratory failure on presentation. There is high clinical suspicion for alveolar hypoventilation, but patient will need to be euvolemic before a room air ABG can be obtained. It is unclear if documentation of this diagnosis with matters patient is highly resistant to BiPAP therapy. Patient likely has an element of inability to compensate for cellulitis versus volume overload as reason for presentation. Patient's failure to comply with BiPAP therapy does increase her risk for respiratory failure. Patient's mentation appears to be appropriate at this time, so we will hold off on any ABG. Patient has responded to diuresis, but will require electrolyte supplementation 2. Suspected sleep apnea/alveolar hypoventilation The patient did present with a chronic elevated bicarbonate. Although she does report having had a sleep study done previously, she reported that she was told that she did not have sleep apnea. I highly doubt that the patient does not have some form of sleep apnea, based upon her body habitus. It is certainly reasonable to place the patient empirically on BiPAP therapy on a nightly basis, if she is agreeable. Patient is yet to use BiPAP overnight. Patient likely will require diuresis to assess for obesity hypoventilation syndrome. However, even with the diagnosis of OHS, it is unclear that the patient would accept a therapy of BiPAP 3. Super morbid obesity/anemia/self-reported asthma/cellulitis/neuropathy Complicates care, management, recovery and prognosis. Continue home medications as indicated. Patient reportedly to attempt to have endoscopy today to evaluate possible source of anemia. This note was generated with [employer] software. It may contain incorrect words, spelling, and punctuation that were not noted in checking the note before signing. Subjective Subjective Patient wanting to wake up only briefly to provide additional information. Patient was not able to have a EGD/colonoscopy yesterday secondary to poor prep. Patient has remained on 4 L nasal cannula during sleep, but continues to refuse BiPAP. Patient has had some diuresis Objective Data Objective Data Vital Signs: Vital Signs Temp Pulse Resp BP Pulse Ox O2 Del Method O2 Flow Rate 37.0 C 100 19 H 122/70 H 90 Nasal Cannula 4 05/29/23 03:00 05/29/23 07:09 05/29/23 07:09 05/29/23 03:00 05/29/23 07:09 05/29/23 07:09 05/29/23 07:09 FiO2 35 05/23/23 16:40 Oxygen Flow Rate (L/min) 4 Oxygen Delivery Method Nasal Cannula Weight: 237 kg Body Mass Index (BMI) 84.3 Intake & Output: Intake and Output for Last 24 Hours 05/27/23 05/28/23 05/29/23 23:59 23:59 23:59 Intake Total 2850 / 3550 3105 / 3105 0 / 0 Output Total 2050 / 2650 5900 / 5900 100 / 100 Balance 800 / 900 -2795 / -2795 -100 / -100 Lab / Micro Data Attestation: I reviewed the patient's lab results. 05/29/23 06:14 05/29/23 06:14 Labs: Laboratory Results - last 24 hr 05/28/23 18:00: Random Vancomycin 14.0 05/29/23 06:14: WBC 10.5, RBC 3.53 L, Hgb 7.3 L, Hct 28.0 L, MCV 79.3 L, MCH 20.7 L, MCHC 26.1 L, RDW Std Deviation 53.6 H, RDW Coeff of Fanny 19.0 H, Plt Count 265, MPV 8.9, Immature Gran % (Auto) 1.100 H, Neut % (Auto) 79.0 H, Lymph % (Auto) 10.3 L, [place] % (Auto) 6.7, Eos % (Auto) 2.8, Baso % (Auto) 0.1, Absolute Neuts (auto) 8.3 H, Absolute Lymphs (auto) 1.08, Nucleated RBC % 0.6, Sodium 138, Potassium 3.1 L, Chloride 90 L, Carbon Dioxide 43.0 H, Anion Gap 5, BUN 7, Creatinine 0.68, Estim Creat Clear Calc 212.77, Est GFR (MDRD) Af Amer 119, Est GFR (MDRD) Non-Af 98, BUN/Creatinine Ratio 10.2, Glucose 107 H, Calcium 9.0 Physical Exam Const alert and no apparent distress Constitutional Narrative: Sleeping comfortably on nasal cannula during my evaluation. Morbidly obese and appears older than stated age. Patient did have witnessed apneic events General Appearance: cooperative and comfortable HEENT normocephalic, head/scalp atraumatic and moist oral mucous membranes Eyes PERRL, EOMs intact bilaterally and conjunctivae normal Neck full ROM Chest inspection of chest normal Resp normal respiratory effort Resp Narrative: Limited exam secondary to body habitus. Auscultation: diminished lung sounds; Negative for rales, rhonchi or wheezes Cardio regular rate, regular rhythm and no murmurs GI normal to inspection, nondistended, normoactive bowel sounds, soft to palpation, non-tender and non-distended Back/Spine normal ROM Extremity Extremity Narrative: Bilateral 4+ edema. There does appear to be stability of erythema on the left lower extremity compared to area marked. Remaining area appears to be venous congestion with lichenification Skin no rashes or lesions noted Neuro moves all extremities and no focal motor deficits Speech: speech normal Psych mental status grossly normal Charges/Coding Visit Charges Inpatient E&M: 93172 Subs Hosp L2
[2023-05-29] MEDS: Furosemide 40 MG/4 ML Vial IV ×2 (08:31→16:29)
[2023-05-29] MEDS: Pantoprazole Sodium 40 MG in 0.9% Normal Saline (100mL MB+) 100 ML 330 MG IV (08:39)
[2023-05-29] MEDS: Potassium Chloride 10mEq/100mL 10 MEQ/100 ML IV.SOLN. 100 MEQ IV BOLUS (09:30)
[2023-05-29] MEDS: Potassium Chloride 10mEq/100mL 10 MEQ/100 ML IV.SOLN. 50 MEQ IV BOLUS (10:55)
--- NOTE | 2023-05-29 11:15 | PN_ITS ---
Subjective Subjective Patient seen and examined. She was resting comfortably. She had no complaints. She is due for EGD and colonoscopy today. She is a bit tachycardic today but otherwise hemodynamically stable. Objective Data Objective Data Vital Signs: Vital Signs Temp Pulse Resp BP Pulse Ox O2 Del Method O2 Flow Rate 97.6 F L 108 H 14 127/67 H 94 Nasal Cannula 3 05/29/23 10:11 05/29/23 10:11 05/29/23 10:11 05/29/23 10:11 05/29/23 10:11 05/29/23 10:11 05/29/23 10:11 FiO2 35 05/23/23 16:40 Oxygen Flow Rate (L/min) 3 Oxygen Delivery Method Nasal Cannula Weight: 522 lb 7.929 oz Body Mass Index (BMI) 84.3 Intake & Output: Intake and Output for Last 24 Hours 05/27/23 05/28/23 05/29/23 23:59 23:59 23:59 Intake Total 2850 / 3550 3105 / 3105 210 / 210 Output Total 2050 / 2650 5900 / 5900 100 / 100 Balance 800 / 900 -2795 / -2795 110 / 110 Lab / Micro Data 05/29/23 06:14 05/29/23 06:14 Labs: Laboratory Results - last 24 hr 05/28/23 18:00: Random Vancomycin 14.0 05/29/23 06:14: WBC 10.5, RBC 3.53 L, Hgb 7.3 L, Hct 28.0 L, MCV 79.3 L, MCH 20.7 L, MCHC 26.1 L, RDW Std Deviation 53.6 H, RDW Coeff of Fanny 19.0 H, Plt Count 265, MPV 8.9, Immature Gran % (Auto) 1.100 H, Neut % (Auto) 79.0 H, Lymph % (Auto) 10.3 L, [place] % (Auto) 6.7, Eos % (Auto) 2.8, Baso % (Auto) 0.1, Absolute Neuts (auto) 8.3 H, Absolute Lymphs (auto) 1.08, Nucleated RBC % 0.6, Sodium 138, Potassium 3.1 L, Chloride 90 L, Carbon Dioxide 43.0 H, Anion Gap 5, BUN 7, Creatinine 0.68, Estim Creat Clear Calc 212.77, Est GFR (MDRD) Af Amer 119, Est GFR (MDRD) Non-Af 98, BUN/Creatinine Ratio 10.2, Glucose 107 H, Calcium 9.0 Physical Exam Const alert, oriented x3 and no apparent distress Constitutional Narrative: super morbid obesity General Appearance: cooperative and comfortable HEENT normocephalic, head/scalp atraumatic, hearing grossly normal bilaterally, nasal mucous membranes and turbinates normal, moist oral mucous membranes and oropharynx normal Eyes PERRL, EOMs intact bilaterally and conjunctivae normal Neck full ROM, no lymphadenopathy, supple and no JVD General: trachea midline Lymph Lymphatic: no lymphadenopathy noted and no lymphedema noted Chest inspection of chest normal Resp normal respiratory effort and no use of accessory muscles Resp Narrative: mildly diminished breath sounds bibasally, no wheezes or crackles. On 3 L of oxygen by nasal canula Cardio regular rate, regular rhythm, S1 normal heart sound, S2 normal heart sound, no murmurs and peripheral pulses 2+ throughout GI normal to inspection, nondistended, normoactive bowel sounds, soft to palpation, non-tender and non-distended GI Narrative: very obese abdomen Back/Spine normal ROM Extremity Extremity Narrative: bilateral lymphedema, with mild erythema of both LEs and chronic stasis changes. General Extremity: edema Skin no rashes or lesions noted Skin Narrative: as under extremity Neuro CN's II-XII intact bilaterally, moves all extremities, no focal motor deficits, no sensory deficits noted and deep tendon reflexes 2+ bilaterally Speech: speech normal Motor Exam: strength 5/5 throughout and general weakness Psych mental status grossly normal, thought process normal, cooperative and affect normal Appearance: appropriate Assessment & Plan Assessment/Plan (1) Acute on chronic respiratory failure with hypoxia and hypercapnia: (2) Acute respiratory failure with hypoxia: PLAN: Plan #Acute on chronic hypoxic and hypercapnic respiratory failure in setting of untreated OFELIA and OHS * on 3 L of oxygen by nasal canula * pulmonology on board * breathing treatment wtih bronchodilators * titrate oxygen to maintain sats >90% * breathing treatment with bronchodilators * 2D echo showed EF of 65% with no regional wall motion abnormalities noted unable to assess diastolic function. * #Bilateral lower extremity lymphedema * had chronic stasis changes on lower extremities; little evidence for cellulitis * however she did have 1/2 positive blood cultures for staph epidermidis from cultures done at [facility] * repeat blood cultures still pending * vancomycin discontinued today. * #Staph epidermidis bacteremia: as above #Acute on chronic anemia * Hb went as low as 7.6. Hb today is 7.3 * iron profile showed severe iron deficiency anemia * gastroenterology on board. * patient has no history of ulcers but does have a history of cervical and uterine cancer. She has no history of GI cancer nd doesnt think she has ever had a colonoscopy or EGD * on IV pantoprazole * for EGD and colonoscopy today * #Hypokalemia: K is 3.1. Will replace and trend. * #Super morbid obesity. BMI is 84.3. Complicates acute care, expected recovery and prognosis. #Depression: On duloxetine DVT prophylaxis: SCDs. Charges/Coding Visit Charges Inpatient E&M: 77178 Subs Hosp L2
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
[2023-05-29] MEDS: Lactated Ringers 1,000 ML 15 ML IV (13:36)
--- NOTE | 2023-05-29 14:30 | COLBX_PTH ---
PATIENT: HELGA JENSEN LOC: [facility] U#:[id number] AGE/SX: 47/F ROOM: [facility] RE05/23/[address]: Dr. Xochitl Cardoso MD : [id number] BED: 1 DIS: 06/01/2023 SPEC #: [id number] RECD: 05/30/23 07:14 STATUS: NILSA REPineda #: [id number] KIP: 05/29/23 14:[address]: Xochitl Cardoso DEPT: SURGICAL PATHOLOGY RECD BY: Jacqueline Shelton ENTERED: 05/30/23 07:14 SP TYPE: COLON BX OTHR DR: MD Dr. Kin Matos, MD Dr. Mau Allison Dr., MD Dr. Cheryl Mcbride Dr., MD Dr. Hemant Dand, MD Dr. Kimber Foust, MD Dr. Lamia Aljundi, MD Dr. Liza D Talampas, MD Dr. Pavan Irukulla, MD Dr. Saad Farooqi, MD Dr. Vikram Anand, MD Dr. William Haden, MD Tissues: A - Duodenum, NOS B - Ascending colon Procedures: Surgery Specimen Level IV HEADER OPERATION: Colonoscopy with polypectomy, EGD with biopsy and Electrohemostasis PRE-OP DIAGNOSIS: Anemia TISSUE SUBMITTED: A- Duodenum, biopsy, B- Ascending colon polyp MICROSCOPIC DIAGNOSIS A. Duodenum, biopsy; A fragment of small intestinal mucosa, no pathologic diagnosis. B. Ascending colon polyp, polypectomy; Hyperplastic polyp. YVETTE/ 06/02/2023 MICROSCOPIC DESCRIPTION Slides are reviewed. GROSS DESCRIPTION A. Received in fixative is one container labeled with the patient's name and designated Duodenum biopsy. The specimen consists of one irregular fragment of light mena soft tissue that measures 0.3 x 0.3 x 0.1 cm. The specimen is totally submitted in one cassette. B. Received in fixative is one container labeled with the patient's name and designated Ascending colon polyp. The specimen consists of a pink-red polyp measuring 1.2 x 0.7 x 0.6 cm. The presumed base is inked. The polyp is bisected and submitted entirely in one cassette. YVETTE/ 05/30/23 TC:1 CPT: 49714k0
--- NOTE | 2023-05-29 15:14 | OP.EGD_ITS ---
Patient Name: Noemi Self Procedure Date: 05/29/2023 2:29 PM Date of : 1975 Age: 47 Procedure: Upper GI endoscopy Indications: Iron deficiency anemia Providers: Jose Wade DO Medicines: Monitored Anesthesia Care Patient Profile: This is a 47 year old female. Refer to note in patient chart for documentation of history and physical. Patient has symptoms. Complications: No immediate complications. Procedure: Pre-Anesthesia Assessment: - Prior to the procedure, a History and Physical was performed, and patient medications and allergies were reviewed. The patient is competent. The risks and benefits of the procedure and the sedation options and risks were discussed with the patient. All questions were answered and informed consent was obtained. Patient identification and proposed procedure were verified by the physician in the pre-procedure area. Mental Status Examination: alert and oriented. Airway Examination: normal oropharyngeal airway and neck mobility. Respiratory Examination: clear to auscultation. CV Examination: normal. Prophylactic Antibiotics: The patient does not require prophylactic antibiotics. Prior Anticoagulants: The patient has taken no anticoagulant or antiplatelet agents. ASA Grade Assessment: II - A patient with mild systemic disease. After reviewing the risks and benefits, the patient was deemed in satisfactory condition to undergo the procedure. The anesthesia plan was to use monitored anesthesia care (MAC). Immediately prior to administration of medications, the patient was re-assessed for adequacy to receive sedatives. The heart rate, respiratory rate, oxygen saturations, blood pressure, adequacy of pulmonary ventilation, and response to care were monitored throughout the procedure. The physical status of the patient was re-assessed after the procedure. After obtaining informed consent, the endoscope was passed under direct vision. Throughout the procedure, the patient's blood pressure, pulse, and oxygen saturations were monitored continuously. The Colonoscope was introduced through the mouth, and advanced to the second part of duodenum. The upper GI endoscopy was accomplished without difficulty. The patient tolerated the procedure well. Scope In: 2:37:01 PM Scope Out: 2:42:11 PM Total Procedure Duration Time 0 hours 5 minutes 10 seconds Findings: The examined esophagus was normal. Three 3 mm angiodysplastic lesions with no bleeding were found in the gastric body. Coagulation for bleeding prevention using heater probe was successful. Estimated blood loss was minimal. The second portion of the duodenum was normal. Impression: - Normal esophagus. 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 Treated with a heater probe. - Normal second portion of the duodenum. - No specimens collected. Recommendation: - Return patient to hospital walker for ongoing care. - Resume regular diet. - Continue present medications. Procedure Code(s): --- Professional --- 65687, Esophagogastroduodenoscopy, flexible, transoral; with control of bleeding, any method CPT copyright 2021 [employer]. All rights reserved. The codes documented in this report are preliminary and upon bevel face stoner and polisher review may be revised to meet current compliance requirements. Jose Wade DO 05/29/2023 3:14:38 PM This report has been signed electronically. Number of Addenda: 0 Note Initiated On: 05/29/2023 2:29 PM
--- NOTE | 2023-05-29 15:15 | OP.CCLET_ITS ---
05/29/2023 Mireille Dietz [address] [place] [address] Re : Upper GI endoscopy procedure for Noemi Self Dear Dr. Dietz This procedure was performed on May. My impressions and recommendations are as follows: Impressions : - Normal esophagus. 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 Treated with a heater probe. - Normal second portion of the duodenum. - No specimens collected. Recommendations : - Return patient to hospital walker for ongoing care. - Resume regular diet. - Continue present medications. My findings are described in the full procedure note, which is enclosed. If I can be of further assistance, please feel free to contact me at . Sincerely, Jose Friend, 05/29/2023 3:14:38 PM This report has been signed electronically.
--- NOTE | 2023-05-29 15:18 | OP.COLON_ITS ---
Patient Name: Noemi Self Procedure Date: 05/29/2023 2:42 PM Date of : 1975 Age: 47 Procedure: Colonoscopy Indications: Iron deficiency anemia Providers: Jose Wade DO Medicines: Monitored Anesthesia Care Patient Profile: This is a 47 year old female. Refer to note in patient chart for documentation of history and physical. Patient has symptoms. Last Colonoscopy: none. The patient's first colonoscopy is today. Complications: No immediate complications. Procedure: Pre-Anesthesia Assessment: - Prior to the procedure, a History and Physical was performed, and patient medications and allergies were reviewed. The patient is competent. The risks and benefits of the procedure and the sedation options and risks were discussed with the patient. All questions were answered and informed consent was obtained. Patient identification and proposed procedure were verified by the physician in the pre-procedure area. Mental Status Examination: alert and oriented. Airway Examination: normal oropharyngeal airway and neck mobility. Respiratory Examination: clear to auscultation. CV Examination: normal. Prophylactic Antibiotics: The patient does not require prophylactic antibiotics. Prior Anticoagulants: The patient has taken no anticoagulant or antiplatelet agents. ASA Grade Assessment: II - A patient with mild systemic disease. After reviewing the risks and benefits, the patient was deemed in satisfactory condition to undergo the procedure. The anesthesia plan was to use monitored anesthesia care (MAC). Immediately prior to administration of medications, the patient was re-assessed for adequacy to receive sedatives. The heart rate, respiratory rate, oxygen saturations, blood pressure, adequacy of pulmonary ventilation, and response to care were monitored throughout the procedure. The physical status of the patient was re-assessed after the procedure. After I obtained informed consent, the scope was passed under direct vision. Throughout the procedure, the patient's blood pressure, pulse, and oxygen saturations were monitored continuously. The Colonoscope was introduced through the anus and advanced to the cecum, identified by appendiceal orifice and ileocecal valve. The colonoscopy was performed without difficulty. The patient tolerated the procedure well. The quality of the bowel preparation was fair. The ileocecal valve, appendiceal orifice, and rectum were photographed. Scope In: 2:50:40 PM Scope Withdrawal Time 0 hours 12 minutes 23 seconds Scope Out: 3:05:14 PM Total Procedure Duration Time 0 hours 14 minutes 34 seconds Findings: The perianal and digital rectal examinations were normal. Multiple small and large-mouthed diverticula were found in the recto-sigmoid colon, sigmoid colon and descending colon. Stool was found in the rectum, in the recto-sigmoid colon, in the sigmoid colon and in the cecum. A 20 mm polyp was found in the ascending colon. The polyp was semi-pedunculated. The polyp was removed with a saline injection-lift technique using a hot snare. Resection and retrieval were complete. Verification of patient identification for the specimen was done by the physician. Estimated blood loss was minimal. To prevent bleeding after the polypectomy, two hemostatic clips were successfully placed. 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 There was no bleeding at the end of the procedure. Impression: - Preparation of the colon was fair. - Diverticulosis in the recto-sigmoid colon, in the sigmoid colon and in the descending colon. - Stool in the rectum, in the recto-sigmoid colon, in the sigmoid colon and in the cecum. - One 20 mm polyp in the ascending colon, removed using injection-lift and a hot snare. Resected and retrieved. Recommendation: - Repeat colonoscopy. - Continue present medications. Procedure Code(s): --- Professional --- 83797, Colonoscopy, flexible; with removal of tumor(s), polyp(s), or other lesion(s) by snare technique 90162, Colonoscopy, flexible; with directed submucosal injection(s), any substance CPT copyright 2021 [employer]. All rights reserved. The codes documented in this report are preliminary and upon jackscrew worker review may be revised to meet current compliance requirements. Jose Wade DO 05/29/2023 3:18:49 PM This report has been signed electronically. Number of Addenda: 0 Note Initiated On: 05/29/2023 2:42 PM
--- NOTE | 2023-05-29 15:19 | OP.CCLET_ITS ---
05/29/2023 Mireille Dietz [address] [place] [address] Re : Colonoscopy procedure for Noemi Self Dear Dr. Dietz This procedure was performed on May. My impressions and recommendations are as follows: Impressions : - Preparation of the colon was fair. - Diverticulosis in the recto-sigmoid colon, in the sigmoid colon and in the descending colon. - Stool in the rectum, in the recto-sigmoid colon, in the sigmoid colon and in the cecum. - One 20 mm polyp in the ascending colon, removed using injection-lift and a hot snare. Resected and retrieved. Recommendations : - Repeat colonoscopy. - Continue present medications. My findings are described in the full procedure note, which is enclosed. If I can be of further assistance, please feel free to contact me at . Sincerely, Jose Wade, 05/29/2023 3:18:49 PM This report has been signed electronically.
[2023-05-29] MEDS: 0.9% Saline Lock 10 ML Syringe IV (16:29)
[2023-05-29] MEDS: Montelukast 10 MG Tablet PO ×2 (16:30→20:49)
[2023-05-29] MEDS: Potassium Chloride Oral Tablet 20 MEQ 40 MEQ PO (16:30)
[2023-05-29] MEDS: DULoxetine Hcl 20 MG Capsule PO ×2 (16:30→20:48)
[2023-05-29] MEDS: Dicyclomine 10 MG Capsule 20 MG PO ×2 (16:31→20:49)
[2023-05-29] MEDS: Ferrous Sulfate 325 MG Tablet PO (16:31)
[2023-05-30] VITALS (7 sets, daily range): BP systolic 129–161; BP diastolic 59–72; PULSE 101–110; RESP 16–21; TEMP 36.3–36.8; O2SAT 94–96
--- NOTE | 2023-05-30 00:41 | NURSING ---
At 05/28 2200, this nurse began to administer Protonix IV to patient through IV located in left breast. Soon after administration began, patient complained of experiencing pain. This nurse then stopped administration and began administration through IV to right forearm. Not long after beginning infusion, patient stated IV hurt and that it blew. This nurse then stopped infusion. Patient stated that ultrasound has to be used to begin IV. This nurse approached other nurse to attempt starting a new IV. New IV was started to right forearm. IV with blood return and ease in flush. When medication was once again hooked up and infusion began, patient once again stated that IV hurt and that it had blown. Infusion was stopped. On coming day shift nurse will be informed for AM rounds.
[2023-05-30] MEDS: Dicyclomine 10 MG Capsule 20 MG PO ×4 (06:41→22:00)
[2023-05-30 06:55] LABS: Absolute Lymphocyte Count 1.11 X10^3/uL (0.83-4.51); Absolute Neutrophil Count 7.9 X10^3/uL (2.0-7.7); Basophil# 0.02 X10^3/uL; Basophil% 0.2 % (0-1); Eosinophil# 0.24 X10^3/uL; Eosinophils% 2.4 % (0-5); Hematocrit 28.2 % (37-47); Hemoglobin 7.4 g/dL (12.0-15.0); Lymphocyte # 1.11 X10^3/ul (0.83-4.51); Mean Corp Hgb Conc 26.2 g/dL (32-36); Mean Corpuscular Hgb 20.8 pg (27.0-32.0); Mean Corpuscular Volume 79.4 fL (81-99); Mean Platelet Vol. 8.8 fl (6.2-12.0); Monocyte# 0.73 X10^3/uL; Monocyte% 7.3 % (0-10); NRBC Flagged by Analyzer 0.6 % (0-5); Neutrophil # 7.85 X10^3/uL (2.7-7.7); Neutrophil % 78.1 % (47-70); Platelet Count 238 K/mm3 (150-450); RBC Distribution Width SD 54.3 fl (35.1-43.9); Red Blood Count 3.55 M/mm3 (4.2-5.4); White Blood Count 10.1 K/mm3 (4.4-11.0)
[2023-05-30] MEDS: HYDROcodone Bitartrate/Apap 5/325 Tablet PO ×3 (06:56→21:59)
[2023-05-30] MEDS: Gabapentin 300 MG Capsule PO ×3 (06:57→21:59)
[2023-05-30 07:56] LABS: BUN 7 mg/dL (7-18); BUN/Creat Ratio 9.6 RATIO (10-20); Calcium,Total 8.8 mg/dL (8.5-10.1); Carbon Dioxide > 45.0 mmol/L (21.0-32.0); Chloride 88 mmol/L (98-107); Creatinine, Serum 0.73 mg/dL (0.55-1.02); EST Glomerular Filtration Rate 91 mL/min (>60); Est Glom Filt Rate - Afr Amer 110 mL/min (>60); Glucose 127 mg/dL (74-106); Potassium 3.3 mmol/L (3.5-5.1); Sodium Level 137 mmol/L (136-145)
--- NOTE | 2023-05-30 08:16 | PCM.PN.INT ---
Assessment & Plan Assessment/Plan (1) Acute on chronic respiratory failure with hypoxia and hypercapnia: (2) Fluid overload: QUALIFIERS: Hypervolemia type: other Qualified Code(s): E87.79 - Other fluid overload (3) Lymphedema: (4) Morbid obesity: (5) Cellulitis of left leg: PLAN: Plan RECOMMENDATIONS: 1. Wean supplemental oxygen to maintain saturations between 90 and 94%. 2. Encourage incentive spirometer use and mobilize patient as tolerated. 3. Monitor clinically off antibiotics. Diuresis as tolerated 4. Encourage BiPAP if patient is agreeable 5. Walking oximetry prior to discharge 6. Electrolyte repletion has been ordered IMPRESSIONS: 1. Acute hypoxemic respiratory failure secondary to volume overload Patient with acute on chronic hypercarbic respiratory failure on presentation. There is high clinical suspicion for alveolar hypoventilation, but patient will need to be euvolemic before a room air ABG can be obtained. It is unclear if documentation of this diagnosis with matters patient is highly resistant to BiPAP therapy. Patient likely has an element of inability to compensate for cellulitis versus volume overload as reason for presentation. Patient off antibiotics and is doing well. Patient's failure to comply with BiPAP therapy does increase her risk for respiratory failure. Patient's mentation appears to be appropriate at this time, so we will hold off on any ABG. Patient has responded to diuresis, but will require electrolyte supplementation 2. Suspected sleep apnea/alveolar hypoventilation The patient did present with a chronic elevated bicarbonate. Although she does report having had a sleep study done previously, she reported that she was told that she did not have sleep apnea. I highly doubt that the patient does not have some form of sleep apnea, based upon her body habitus. It is certainly reasonable to place the patient empirically on BiPAP therapy on a nightly basis, if she is agreeable. Patient is yet to use BiPAP overnight. Patient likely will require diuresis to assess for obesity hypoventilation syndrome. However, even with the diagnosis of OHS, it is unclear that the patient would accept a therapy of BiPAP 3. Super morbid obesity/anemia/self-reported asthma/cellulitis/neuropathy Complicates care, management, recovery and prognosis. Continue home medications as indicated. Patient reportedly to attempt to have endoscopy today to evaluate possible source of anemia. This note was generated with [employer] software. It may contain incorrect words, spelling, and punctuation that were not noted in checking the note before signing. Subjective Subjective Patient did okay yesterday. Patient did have an EGD and colonoscopy and these notes were reviewed. Patient is still reporting watery diarrhea. Patient states she still feels somewhat weak with standing. Patient continues to refuse BiPAP therapy. Objective Data Objective Data Vital Signs: Vital Signs Temp Pulse Resp BP Pulse Ox O2 Del Method O2 Flow Rate 36.6 C 104 H 16 129/62 H 94 Nasal Cannula 3 05/30/23 04:10 05/30/23 04:10 05/30/23 04:10 05/30/23 04:10 05/30/23 04:10 05/30/23 05:00 05/30/23 05:00 FiO2 35 05/23/23 16:40 Oxygen Flow Rate (L/min) 3 Oxygen Delivery Method Nasal Cannula Weight: 237 kg Body Mass Index (BMI) 84.3 Intake & Output: Intake and Output for Last 24 Hours 05/28/23 05/29/23 05/30/23 23:59 23:59 23:59 Intake Total 3105 / 3105 610 / 610 0 / 0 Output Total 5900 / 5900 4475 / 5350 875 / 875 Balance -2795 / -2795 -3865 / -4740 -875 / -875 Lab / Micro Data 05/30/23 06:40 05/30/23 06:40 Labs: Laboratory Results - last 24 hr 05/30/23 06:40: WBC 10.1, RBC 3.55 L, Hgb 7.4 L, Hct 28.2 L, MCV 79.4 L, MCH 20.8 L, MCHC 26.2 L, RDW Std Deviation 54.3 H, RDW Coeff of Fanny 19.0 H, Plt Count 238, MPV 8.8, Immature Gran % (Auto) 1.000 H, Neut % (Auto) 78.1 H, Lymph % (Auto) 11.0 L, [place] % (Auto) 7.3, Eos % (Auto) 2.4, Baso % (Auto) 0.2, Absolute Neuts (auto) 7.9 H, Absolute Lymphs (auto) 1.11, Nucleated RBC % 0.6, Sodium 137, Potassium 3.3 L, Chloride 88 L, Carbon Dioxide > 45.0 H*, Anion Gap TNP, BUN 7, Creatinine 0.73, Estim Creat Clear Calc 198.20, Est GFR (MDRD) Af Amer 110, Est GFR (MDRD) Non-Af 91, BUN/Creatinine Ratio 9.6 L, Glucose 127 H, Calcium 8.8 Micro: Microbiology 05/24/23 11:20 Blood Culture (Wb) - Right Hand Blood Culture - Final No growth in 5 days. 05/24/23 11:32 Blood Culture (Wb) - Left Hand Blood Culture - Final No growth in 5 days. Physical Exam Const alert, oriented x3 and no apparent distress Constitutional Narrative: Patient in the chair during my evaluation. No conversational dyspnea noted. General Appearance: cooperative and comfortable HEENT normocephalic, head/scalp atraumatic and moist oral mucous membranes Eyes PERRL, EOMs intact bilaterally and conjunctivae normal Neck full ROM Chest inspection of chest normal Resp normal respiratory effort Resp Narrative: Limited exam secondary to body habitus. Auscultation: diminished lung sounds; Negative for rales, rhonchi or wheezes Cardio regular rate, regular rhythm, no murmurs and peripheral pulses 2+ throughout GI normal to inspection, nondistended, normoactive bowel sounds, soft to palpation, non-tender and non-distended Back/Spine normal ROM Extremity Extremity Narrative: Bilateral 4+ edema. There does appear to be stability of erythema on the left lower extremity compared to area marked. Remaining area appears to be venous congestion with lichenification Skin no rashes or lesions noted Neuro moves all extremities and no focal motor deficits Speech: speech normal Psych mental status grossly normal Charges/Coding Visit Charges Inpatient E&M: 92654 Subs Hosp L2
[2023-05-30] MEDS: Furosemide 40 MG/4 ML Vial IV ×2 (09:13→17:20)
[2023-05-30] MEDS: Potassium Chloride Oral Tablet 20 MEQ 40 MEQ PO ×2 (09:13→17:19)
[2023-05-30] MEDS: Montelukast 10 MG Tablet PO ×2 (09:13→22:00)
[2023-05-30] MEDS: DULoxetine Hcl 20 MG Capsule PO ×2 (10:35→22:00)
[2023-05-30] MEDS: Metoclopramide 10 MG/2 ML Vial 5 MG IV ×2 (13:00→17:20)
[2023-05-30] MEDS: Ferrous Sulfate 325 MG Tablet PO ×2 (13:02→17:19)
--- NOTE | 2023-05-30 13:11 | PN_ITS ---
Subjective Subjective Patient seen and examined. She has no active complaints today. Review of symptoms otherwise negative. She had EGD which showed 3 nonbleeding angiodysplastic lesions. Objective Data Objective Data Vital Signs: Vital Signs Temp Pulse Resp BP Pulse Ox O2 Del Method O2 Flow Rate 97.4 F L 110 H 18 148/72 H 96 Nasal Cannula 4 05/30/23 09:00 05/30/23 09:00 05/30/23 09:00 05/30/23 09:00 05/30/23 12:48 05/30/23 10:00 05/30/23 12:48 FiO2 35 05/23/23 16:40 Oxygen Flow Rate (L/min) 4 Oxygen Delivery Method Nasal Cannula Weight: 522 lb 7.929 oz Body Mass Index (BMI) 84.3 Intake & Output: Intake and Output for Last 24 Hours 05/28/23 05/29/23 05/30/23 23:59 23:59 23:59 Intake Total 3105 / 3105 610 / 610 478.75 / 478.75 Output Total 5900 / 5900 4475 / 5350 2375 / 2375 Balance -2795 / -2795 -3865 / -4740 -1896.25 / -1896.25 Lab / Micro Data 05/30/23 06:40 05/30/23 06:40 Labs: Laboratory Results - last 24 hr 05/30/23 06:40: WBC 10.1, RBC 3.55 L, Hgb 7.4 L, Hct 28.2 L, MCV 79.4 L, MCH 20.8 L, MCHC 26.2 L, RDW Std Deviation 54.3 H, RDW Coeff of Fanny 19.0 H, Plt Count 238, MPV 8.8, Immature Gran % (Auto) 1.000 H, Neut % (Auto) 78.1 H, Lymph % (Auto) 11.0 L, [place] % (Auto) 7.3, Eos % (Auto) 2.4, Baso % (Auto) 0.2, Absolute Neuts (auto) 7.9 H, Absolute Lymphs (auto) 1.11, Nucleated RBC % 0.6, Sodium 137, Potassium 3.3 L, Chloride 88 L, Carbon Dioxide > 45.0 H*, Anion Gap TNP, BUN 7, Creatinine 0.73, Estim Creat Clear Calc 198.20, Est GFR (MDRD) Af Amer 110, Est GFR (MDRD) Non-Af 91, BUN/Creatinine Ratio 9.6 L, Glucose 127 H, Calcium 8.8 Micro: Microbiology 05/24/23 11:20 Blood Culture (Wb) - Right Hand Blood Culture - Final No growth in 5 days. 05/24/23 11:32 Blood Culture (Wb) - Left Hand Blood Culture - Final No growth in 5 days. Physical Exam Const alert, oriented x3 and no apparent distress Constitutional Narrative: super morbid obesity General Appearance: cooperative and comfortable HEENT normocephalic, head/scalp atraumatic, hearing grossly normal bilaterally, nasal mucous membranes and turbinates normal, moist oral mucous membranes and oropharynx normal Eyes PERRL, EOMs intact bilaterally and conjunctivae normal Neck full ROM, no lymphadenopathy, supple and no JVD General: trachea midline Lymph Lymphatic: no lymphadenopathy noted and no lymphedema noted Chest inspection of chest normal Resp normal respiratory effort and no use of accessory muscles Resp Narrative: mildly diminished breath sounds bibasally, no wheezes or crackles. On 3 L of oxygen by nasal canula Cardio regular rate, regular rhythm, S1 normal heart sound, S2 normal heart sound, no murmurs and peripheral pulses 2+ throughout GI normal to inspection, nondistended, normoactive bowel sounds, soft to palpation, non-tender and non-distended GI Narrative: very obese abdomen Back/Spine normal ROM Extremity Extremity Narrative: bilateral lymphedema, with mild erythema of both LEs and chronic stasis changes. General Extremity: edema Skin no rashes or lesions noted Skin Narrative: as under extremity Neuro CN's II-XII intact bilaterally, moves all extremities, no focal motor deficits, no sensory deficits noted and deep tendon reflexes 2+ bilaterally Speech: speech normal Motor Exam: strength 5/5 throughout and general weakness Psych mental status grossly normal, thought process normal, cooperative and affect normal Appearance: appropriate Assessment & Plan Assessment/Plan (1) Acute on chronic respiratory failure with hypoxia and hypercapnia: (2) Acute respiratory failure with hypoxia: PLAN: Plan #Acute on chronic hypoxic and hypercapnic respiratory failure in setting of untr eated OFELIA and OHS * on 3 L of oxygen by nasal canula * pulmonology on board * breathing treatment wtih bronchodilators * titrate oxygen to maintain sats >90% * breathing treatment with bronchodilators * 2D echo showed EF of 65% with no regional wall motion abnormalities noted unable to assess diastolic function. * #Bilateral lower extremity lymphedema * had chronic stasis changes on lower extremities; little evidence for cellulitis * however she did have 1/2 positive blood cultures for staph epidermidis from cultures done at [facility] * repeat blood cultures still pending * vancomycin discontinued today. * #Staph epidermidis bacteremia: as above #Acute on chronic anemia * Hb went as low as 7.6. Hb today is 7.3 * iron profile showed severe iron deficiency anemia * gastroenterology on board. * patient has no history of ulcers but does have a history of cervical and uterine cancer. She has no history of GI cancer nd doesnt think she has ever had a colonoscopy or EGD * on IV pantoprazole * Had EGD which showed 3 nonbleeding angiodysplastic lesions in the stomach which were treated with heater probe and colonoscopy showed diverticulosis in the rectosigmoid colon, sigmoid colon and descending colon. She had a 20 mm polyp in the ascending colon which was resected. * Will switch to p.o. pantoprazole. * Put on oral iron supplementation. * #Hypokalemia: K is 3.1. Will replace and trend. * #Super morbid obesity. BMI is 84.3. Complicates acute care, expected recovery and prognosis. #Depression: On duloxetine DVT prophylaxis: SCDs. Charges/Coding Visit Charges Inpatient E&M: 04880 Subs Hosp L2
[2023-05-30] MEDS: 0.9% Saline Lock 10 ML Syringe IV ×3 (14:07→22:07)
[2023-05-30] MEDS: Ondansetron 4 MG/2 ML Vial IV (14:07)
--- NOTE | 2023-05-30 16:47 | EX.PCM.PN.GI ---
Subjective Subjective Patient underwent she was determined to have bleeding polyp that was removed. She is not having any signs or symptoms of bleeding at this time. Objective Data Objective Data Vital Signs: Vital Signs Temp Pulse Resp BP Pulse Ox O2 Del Method O2 Flow Rate 97.9 F 101 H 18 161/70 H 94 Nasal Cannula 3 05/30/23 15:00 05/30/23 15:00 05/30/23 15:00 05/30/23 15:00 05/30/23 15:00 05/30/23 15:00 05/30/23 15:00 FiO2 35 05/23/23 16:40 Oxygen Flow Rate (L/min) 3 Oxygen Delivery Method Nasal Cannula Weight: 522 lb 7.929 oz Body Mass Index (BMI) 84.3 Intake & Output: Intake and Output for Last 24 Hours 05/28/23 05/29/23 05/30/23 23:59 23:59 23:59 Intake Total 3105 / 3105 610 / 610 478.75 / 478.75 Output Total 5900 / 5900 4475 / 5350 2375 / 2375 Balance -2795 / -2795 -3865 / -4740 -1896.25 / -1896.25 Lab / Micro Data 05/30/23 06:40 05/30/23 06:40 Labs: Laboratory Results - last 24 hr 05/30/23 06:40: WBC 10.1, RBC 3.55 L, Hgb 7.4 L, Hct 28.2 L, MCV 79.4 L, MCH 20.8 L, MCHC 26.2 L, RDW Std Deviation 54.3 H, RDW Coeff of Fanny 19.0 H, Plt Count 238, MPV 8.8, Immature Gran % (Auto) 1.000 H, Neut % (Auto) 78.1 H, Lymph % (Auto) 11.0 L, [place] % (Auto) 7.3, Eos % (Auto) 2.4, Baso % (Auto) 0.2, Absolute Neuts (auto) 7.9 H, Absolute Lymphs (auto) 1.11, Nucleated RBC % 0.6, Sodium 137, Potassium 3.3 L, Chloride 88 L, Carbon Dioxide > 45.0 H*, Anion Gap TNP, BUN 7, Creatinine 0.73, Estim Creat Clear Calc 198.20, Est GFR (MDRD) Af Amer 110, Est GFR (MDRD) Non-Af 91, BUN/Creatinine Ratio 9.6 L, Glucose 127 H, Calcium 8.8 Micro: Microbiology 05/24/23 11:20 Blood Culture (Wb) - Right Hand Blood Culture - Final No growth in 5 days. 05/24/23 11:32 Blood Culture (Wb) - Left Hand Blood Culture - Final No growth in 5 days. Physical Exam Const alert, oriented x3 and no apparent distress Constitutional Narrative: super morbid obesity General Appearance: cooperative and comfortable HEENT normocephalic, head/scalp atraumatic, hearing grossly normal bilaterally, nasal mucous membranes and turbinates normal, moist oral mucous membranes and oropharynx normal Eyes PERRL, EOMs intact bilaterally and conjunctivae normal Neck full ROM, no lymphadenopathy, supple and no JVD General: trachea midline Lymph Lymphatic: no lymphadenopathy noted and no lymphedema noted Chest inspection of chest normal Resp normal respiratory effort and no use of accessory muscles Resp Narrative: mildly diminished breath sounds bibasally, no wheezes or crackles. On 3 L of oxygen by nasal canula Cardio regular rate, regular rhythm, S1 normal heart sound, S2 normal heart sound, no murmurs and peripheral pulses 2+ throughout GI normal to inspection, nondistended, normoactive bowel sounds, soft to palpation, non-tender and non-distended GI Narrative: very obese abdomen Back/Spine normal ROM Extremity Extremity Narrative: bilateral lymphedema, with mild erythema of both LEs and chronic stasis changes. General Extremity: edema Skin no rashes or lesions noted Skin Narrative: as under extremity Neuro CN's II-XII intact bilaterally, moves all extremities, no focal motor deficits, no sensory deficits noted and deep tendon reflexes 2+ bilaterally Speech: speech normal Motor Exam: strength 5/5 throughout and general weakness Psych mental status grossly normal, thought process normal, cooperative and affect normal Appearance: appropriate Assessment & Plan Assessment/Plan (1) Anemia: PLAN: Hemoglobin seems to be stable. These are the findings from the EGD and colonoscopy. Findings: The examined esophagus was normal. Three 3 mm angiodysplastic lesions with no bleeding were found in the gastric body. Coagulation for bleeding prevention using heater probe was successful. Estimated blood loss was minimal. The second portion of the duodenum was normal. Impression: - Normal esophagus. 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 Treated with a heater probe. - Normal second portion of the duodenum. - No specimens collected. Recommendation: - Return patient to hospital [facility] for ongoing care. - Resume regular diet. - Continue present medications. Findings: The perianal and digital rectal examinations were normal. Multiple small and large-mouthed diverticula were found in the recto-sigmoid colon, sigmoid colon and descending colon. Stool was found in the rectum, in the recto-sigmoid colon, in the sigmoid colon and in the cecum. A 20 mm polyp was found in the ascending colon. The polyp was semi-pedunculated. The polyp was removed with a saline injection-lift technique using a hot snare. Resection and retrieval were complete. Verification of patient identification for the specimen was done by the physician. Estimated blood loss was minimal. To prevent bleeding after the polypectomy, two hemostatic clips were successfully placed. 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 There was no bleeding at the end of the procedure. Impression: - Preparation of the colon was fair. - Diverticulosis in the recto-sigmoid colon, in the sigmoid colon and in the descending colon. - Stool in the rectum, in the recto-sigmoid colon, in the sigmoid colon and in the cecum. - One 20 mm polyp in the ascending colon, removed using injection-lift and a hot snare. Resected and retrieved. Recommendation: - Repeat colonoscopy. - Continue present medications. Charges/Coding Visit Charges Inpatient E&M: 25422 Subs Hosp L3
[2023-05-30] MEDS: Budesonide Respules 0.5 MG/2 ML AMPUL.NEB. INHALATION (19:38)
[2023-05-30] MEDS: Pantoprazole Sodium 40 MG in 0.9% Normal Saline (100mL MB+) 100 ML 330 MG IV (21:59)
[2023-05-31] VITALS (7 sets, daily range): BP systolic 123–173; BP diastolic 63–78; PULSE 66–102; RESP 16–18; TEMP 36.2–36.7; O2SAT 89–97
[2023-05-31] MEDS: Metoclopramide 10 MG/2 ML Vial 5 MG IV ×5 (00:01→23:10)
[2023-05-31] MEDS: Gabapentin 300 MG Capsule PO ×2 (04:29→21:17)
[2023-05-31 05:11] LABS: Absolute Lymphocyte Count 1.26 X10^3/uL (0.83-4.51); Absolute Neutrophil Count 7.1 X10^3/uL (2.0-7.7); Basophil# 0.02 X10^3/uL; Basophil% 0.2 % (0-1); Eosinophil# 0.26 X10^3/uL; Eosinophils% 2.8 % (0-5); Hematocrit 28.6 % (37-47); Hemoglobin 7.6 g/dL (12.0-15.0); Lymphocyte # 1.26 X10^3/ul (0.83-4.51); Lymphocyte % 13.4 % (19-41); Mean Corp Hgb Conc 26.6 g/dL (32-36); Mean Corpuscular Hgb 21.1 pg (27.0-32.0); Mean Corpuscular Volume 79.2 fL (81-99); Monocyte# 0.71 X10^3/uL; Monocyte% 7.5 % (0-10); NRBC Flagged by Analyzer 0.3 % (0-5); Neutrophil # 7.06 X10^3/uL (2.7-7.7); Neutrophil % 74.9 % (47-70); Platelet Count 241 K/mm3 (150-450); RBC Distribution Width SD 54.4 fl (35.1-43.9); Red Blood Count 3.61 M/mm3 (4.2-5.4); White Blood Count 9.4 K/mm3 (4.4-11.0)
[2023-05-31 05:37] LABS: BUN 8 mg/dL (7-18); BUN/Creat Ratio 11.3 RATIO (10-20); Carbon Dioxide > 45.0 mmol/L (21.0-32.0); Chloride 85 mmol/L (98-107); EST Glomerular Filtration Rate 95 mL/min (>60); Est Glom Filt Rate - Afr Amer 115 mL/min (>60); Estimated Creatinine Clearance 206.69 ml/min; Glucose 112 mg/dL (74-106); Potassium 3.7 mmol/L (3.5-5.1); Sodium Level 137 mmol/L (136-145)
[2023-05-31] MEDS: Dicyclomine 10 MG Capsule 20 MG PO ×4 (06:30→21:08)
[2023-05-31] MEDS: Budesonide Respules 0.5 MG/2 ML AMPUL.NEB. INHALATION ×2 (07:35→22:01)
[2023-05-31] MEDS: Pantoprazole Sodium 40 MG in 0.9% Normal Saline (100mL MB+) 100 ML 330 MG IV ×2 (10:49→21:08)
[2023-05-31] MEDS: Montelukast 10 MG Tablet PO ×2 (10:51→21:08)
[2023-05-31] MEDS: Ferrous Sulfate 325 MG Tablet PO ×2 (10:51→17:03)
[2023-05-31] MEDS: Furosemide 40 MG/4 ML Vial IV ×2 (10:51→17:03)
[2023-05-31] MEDS: DULoxetine Hcl 20 MG Capsule PO ×2 (10:51→21:08)
[2023-05-31] MEDS: HYDROcodone Bitartrate/Apap 5/325 Tablet PO ×2 (11:01→23:14)
--- NOTE | 2023-05-31 11:03 | PN_ITS ---
Subjective Subjective Patient seen and examined. She had no active complaints. Review of systems is otherwise negative. Hb is 7.6 today. Objective Data Objective Data Vital Signs: Vital Signs Temp Pulse Resp BP Pulse Ox O2 Del Method O2 Flow Rate 97.9 F 97 18 173/78 H 96 Nasal Cannula 3 05/31/23 09:00 05/31/23 09:00 05/31/23 09:00 05/31/23 09:00 05/31/23 09:00 05/31/23 10:36 05/31/23 10:36 FiO2 35 05/23/23 16:40 Oxygen Flow Rate (L/min) 3 Oxygen Delivery Method Nasal Cannula Weight: 522 lb 7.929 oz Body Mass Index (BMI) 84.3 Intake & Output: Intake and Output for Last 24 Hours 05/29/23 05/30/23 05/31/23 23:59 23:59 23:59 Intake Total 610 / 610 1068.75 / 1068.75 0 / 0 Output Total 4475 / 5350 4725 / 5325 600 / 600 Balance -3865 / -4740 -3656.25 / -4256.25 -600 / -600 Lab / Micro Data 05/31/23 04:59 05/31/23 04:59 Labs: Laboratory Results - last 24 hr 05/31/23 04:59: WBC 9.4, RBC 3.61 L, Hgb 7.6 L, Hct 28.6 L, MCV 79.2 L, MCH 21.1 L, MCHC 26.6 L, RDW Std Deviation 54.4 H, RDW Coeff of Fanny 19.0 H, Plt Count 241, MPV 9.0, Immature Gran % (Auto) 1.200 H, Neut % (Auto) 74.9 H, Lymph % (Auto) 13.4 L, [place] % (Auto) 7.5, Eos % (Auto) 2.8, Baso % (Auto) 0.2, Absolute Neuts (auto) 7.1, Absolute Lymphs (auto) 1.26, Nucleated RBC % 0.3, Sodium 137, Potassium 3.7, Chloride 85 L, Carbon Dioxide > 45.0 H*, Anion Gap TNP, BUN 8, Creatinine 0.70, Estim Creat Clear Calc 206.69, Est GFR (MDRD) Af Amer 115, Est GFR (MDRD) Non-Af 95, BUN/Creatinine Ratio 11.3, Glucose 112 H, Calcium 9.0 Micro: Microbiology 05/24/23 11:20 Blood Culture (Wb) - Right Hand Blood Culture - Final No growth in 5 days. 05/24/23 11:32 Blood Culture (Wb) - Left Hand Blood Culture - Final No growth in 5 days. Physical Exam Const alert, oriented x3 and no apparent distress Constitutional Narrative: super morbid obesity General Appearance: cooperative and comfortable HEENT normocephalic, head/scalp atraumatic, hearing grossly normal bilaterally, nasal mucous membranes and turbinates normal, moist oral mucous membranes and oropharynx normal Eyes PERRL, EOMs intact bilaterally and conjunctivae normal Neck full ROM, no lymphadenopathy, supple and no JVD General: trachea midline Lymph Lymphatic: no lymphadenopathy noted and no lymphedema noted Chest inspection of chest normal Resp normal respiratory effort and no use of accessory muscles Resp Narrative: mildly diminished breath sounds bibasally, no wheezes or crackles. On 3L of oxygen by nasal canula Cardio regular rate, regular rhythm, S1 normal heart sound, S2 normal heart sound, no murmurs and peripheral pulses 2+ throughout GI normal to inspection, nondistended, normoactive bowel sounds, soft to palpation, non-tender and non-distended GI Narrative: very obese abdomen Back/Spine normal ROM Extremity Extremity Narrative: bilateral lymphedema, with mild erythema of both LEs and chronic stasis changes. General Extremity: edema Skin no rashes or lesions noted Skin Narrative: as under extremity Neuro CN's II-XII intact bilaterally, moves all extremities, no focal motor deficits, no sensory deficits noted and deep tendon reflexes 2+ bilaterally Speech: speech normal Motor Exam: strength 5/5 throughout and general weakness Psych mental status grossly normal, thought process normal, cooperative and affect normal Appearance: appropriate Assessment & Plan Assessment/Plan (1) Acute on chronic respiratory failure with hypoxia and hypercapnia: (2) Acute respiratory failure with hypoxia: PLAN: Plan #Acute on chronic hypoxic and hypercapnic respiratory failure in setting of untreated OFELIA and OHS * on 3 L of oxygen by nasal canula * pulmonology on board * breathing treatment wtih bronchodilators * titrate oxygen to maintain sats >90% * breathing treatment with bronchodilators * 2D echo showed EF of 65% with no regional wall motion abnormalities noted unable to assess diastolic function. * Bicarb is >45. * ABG ordered, but respiratory unable to get ABG. * BIPAP qhs. and PRN as needed. * #Bilateral lower extremity lymphedema * had chronic stasis changes on lower extremities; little evidence for cellulitis * however she did have 1/2 positive blood cultures for staph epidermidis from cultures done at [facility] * repeat blood cultures negative. * vancomycin discontinued * #Staph epidermidis bacteremia: as above #Acute on chronic anemia * Hb today is 7.3. * iron profile showed severe iron deficiency anemia * gastroenterology on board. * patient has no history of ulcers but does have a history of cervical and uterine cancer. She has no history of GI cancer nd doesnt think she has ever had a colonoscopy or EGD * on IV pantoprazole * Had EGD which showed 3 nonbleeding angiodysplastic lesions in the stomach whi ch were treated with heater probe and colonoscopy showed diverticulosis in the rectosigmoid colon, sigmoid colon and descending colon. She had a 20 mm polyp in the ascending colon which was resected. * p.o. pantoprazole. * on oral iron supplementation. * #Hypokalemia: K is 3.7. Will replace and trend. * #Super morbid obesity. BMI is 84.3. Complicates acute care, expected recovery and prognosis. #Depression: On duloxetine DVT prophylaxis: SCDs. Disposition: patient doesnt want to go home today because her caregivers are not available today. They will be available tomorrow. will DC tomorrow. Charges/Coding Visit Charges Inpatient E&M: 11293 Subs Hosp L2
[2023-05-31] MEDS: 0.9% Saline Lock 10 ML Syringe IV ×5 (11:08→23:12)
[2023-05-31 11:48] LABS: Base Excess 26 mmol/L (-2 to +2); Bicarbonate 50.6 mmol/L (22-26); Blood Gas Specimen Type ART; Mode Not entered; O2 Delivery Device Cannula; PO2 74 mmHG (75-100); SITE R Brach; SO2 94 % (95-99); Total Carbon Dioxide > 50 mmol/L; pCO2 79.6 mmHg (35-45); pH 7.41 (7.35-7.45)
--- NOTE | 2023-05-31 11:59 | CPS ---
Critical ABG results cortexted to Dr. Cardoso at 1730
--- NOTE | 2023-05-31 14:00 | PN.CC_ITS ---
Objective Data Objective Data Vital Signs: Vital Signs Last response Temperature 36.6 C 05/31/23 09:00 Temperature Source Temporal 05/31/23 09:00 Pulse Rate 97 05/31/23 09:00 Pulse Strength Weak (1+) 05/31/23 10:34 Respiratory Rate 18 05/31/23 09:00 Respiratory Effort Normal, Non-Labored 05/31/23 10:36 Respiratory Depth Normal 05/31/23 10:36 Respiratory Pattern Normal 05/31/23 10:36 Blood Pressure 173/78 H 05/31/23 09:00 Blood Pressure Mean 109 05/31/23 09:00 Blood Pressure Source Monitor 05/31/23 09:00 Blood Pressure Position Semi-Fowlers 05/31/23 09:00 Blood Pressure Location Left Forearm 05/31/23 09:00 Baseline BP 127/67 05/29/23 15:25 Pulse Ox 96 05/31/23 09:00 Oxygen Delivery Method Nasal Cannula 05/31/23 10:36 Oxygen Flow Rate (L/min) 3 05/31/23 10:36 Fraction of Inspired Oxygen (FIO2) 35 05/23/23 16:40 I&O: I&O Last 24 Hours 05/30/23 05/31/23 05/31/23 23:59 11:59 23:59 Intake Total 590 / 1068.75 590 / 590 Output Total 2350 / 5325 1050 / 1050 Balance -1760 / -4256.25 -460 / -460 I&O: Total Stay 05/23/23 14:26 thru 05/31/23 11:34 Intake Total 40175.75 Output Total 90322 Balance -42946.25 Current Meds Ordered / Administered: Current meds ordered / Administered Generic Name Dose Route Start Last Admin Trade Name Freq PRN Reason Stop Dose Admin Acetaminophen 650 mg 05/23/23 19:47 05/28/23 15:10 Acetaminophen 325 Mg Tablet PO 650 mg Q6H PRN PRN Administration Pain 1-10 Or Fever >100.7 Hydrocodone Bitart/Acetaminophen 1 tablet 05/24/23 02:19 05/31/23 11:01 Hydrocodone Bitartrate/Apap 5/325 Tablet PO 1 tablet Q4H PRN PRN Administration pain 4-10 Albuterol Sulfate 2.5 mg 05/23/23 20:20 05/26/23 05:12 Albuterol 2.5 Mg/3 Ml Vial.Neb. INHALATION 2.5 mg Q2H PRN PRN Administration Dyspnea, wheezing Budesonide 0.5 mg 05/23/23 20:30 05/31/23 07:35 Budesonide Respules 0.5 Mg/2 Ml Ampul.Neb. INHALATION 0.5 mg BID.RT HERNÁN Administration Dicyclomine HCl 20 mg 05/23/23 22:00 05/31/23 10:50 Dicyclomine 10 Mg Capsule PO 20 mg ACHS HERNÁN Administration Duloxetine HCl 20 mg 05/23/23 22:00 05/31/23 10:51 Duloxetine Hcl 20 Mg Capsule PO 20 mg BID HERNÁN Administration Ferrous Sulfate 325 mg 05/30/23 17:00 05/31/23 10:51 Ferrous Sulfate 325 Mg Tablet PO 325 mg 1200,1700 HERNÁN Administration Furosemide 40 mg 05/28/23 10:00 05/31/23 10:51 Furosemide 40 Mg/4 Ml Vial IV 40 mg BIDLX HERNÁN Administration Protocol Gabapentin 300 mg 05/23/23 20:18 05/31/23 04:29 Gabapentin 300 Mg Capsule PO 300 mg TID PRN PRN Administration muscle spasms Sodium Chloride 250 mls @ 15 mls/hr 05/23/23 20:28 IV .[id number] PRN Additional IVPB Infusion Sodium Chloride 250 mls @ 15 mls/hr 05/23/23 20:28 IV .[id number] PRN Saline Flush Pantoprazole Sodium 40 mg/ 110 mls @ 330 mls/hr 05/26/23 10:00 05/31/23 11:34 Sodium Chloride IV Infused Q12 HERNÁN Infusion Sodium Chloride 250 mls @ 15 mls/hr 05/26/23 19:04 IV .[id number] PRN Additional IVPB Infusion Sodium Chloride 250 mls @ 15 mls/hr 05/26/23 19:04 IV .[id number] PRN Saline Flush Lactated Ringer's 1,000 mls @ 15 mls/hr 05/29/23 13:30 05/31/23 12:35 IV Not Given .Q48H HERNÁN Metoclopramide HCl 5 mg 05/27/23 18:00 05/31/23 11:07 Metoclopramide 10 Mg/2 Ml Vial IV 5 mg Q6 HERNÁN Administration Montelukast Sodium 10 mg 05/23/23 22:00 05/31/23 10:51 Montelukast 10 Mg Tablet PO 10 mg BID HERNÁN Administration Nystatin 1 applic 05/24/23 10:00 05/31/23 10:51 Nystatin Powder 15gm Bottle TOPICAL Not Given BID [facility] Protocol Ondansetron HCl 4 mg 05/23/23 19:47 05/30/23 14:07 Ondansetron 4 Mg/2 Ml Vial IV 4 mg Q8H PRN PRN Administration NAUSEA/VOMITING Sodium Chloride 10 - 40 ml 05/23/23 20:28 05/31/23 11:08 0.9% Saline Lock 10 Ml Syringe IV 10 ml UD PRN Administration SALINE FLUSH Sodium Chloride 1 spray 05/25/23 15:21 05/25/23 15:48 Sodium Chloride 0.65% 1 [place].Btl NASAL 1 spray BID PRN PRN Administration NASAL DRYNESS Sodium Chloride 10 - 40 ml 05/26/23 19:04 0.9% Saline Lock 10 Ml Syringe IV UD PRN SALINE FLUSH Lab / Micro Data 05/31/23 04:59 05/31/23 04:59 Labs: Laboratory Results - last 24 hr 05/31/23 04:59: WBC 9.4, RBC 3.61 L, Hgb 7.6 L, Hct 28.6 L, MCV 79.2 L, MCH 21.1 L, MCHC 26.6 L, RDW Std Deviation 54.4 H, RDW Coeff of Fanny 19.0 H, Plt Count 241, MPV 9.0, Immature Gran % (Auto) 1.200 H, Neut % (Auto) 74.9 H, Lymph % (Auto) 13.4 L, [place] % (Auto) 7.5, Eos % (Auto) 2.8, Baso % (Auto) 0.2, Absolute Neuts (auto) 7.1, Absolute Lymphs (auto) 1.26, Nucleated RBC % 0.3, Sodium 137, Potassium 3.7, Chloride 85 L, Carbon Dioxide > 45.0 H*, Anion Gap TNP, BUN 8, C reatinine 0.70, Estim Creat Clear Calc 206.69, Est GFR (MDRD) Af Amer 115, Est GFR (MDRD) Non-Af 95, BUN/Creatinine Ratio 11.3, Glucose 112 H, Calcium 9.0 ABG Data ABG results: ABG 05/31/23 11:44 Specimen Type ART Sample Site R Brach pH 7.41 Bicarbonate Actual 50.6 H Total CO2 > 50 Base Excess 26 H O2 Saturation 94 L O2 % 2.0 ABG pCO2 79.6 H* ABG pO2 74 L O2 Delivery Device Cannula Vent Mode Not entered Crit Call To/Read Back Yes Assessment and Plan . Assessment and plan: Feels better today than yesterday. No acute events over night. On 3L O2 via NC (baseline). Still unable to wean NIV. Diureing well. A/P: #Acute on chronic respiratory failure with hypoxia and hypercapnia #Suspected OFELIA/OHS #Fluid overload #Lymphedema #Morbid obesity #Cellulitis of left leg #Super morbid obesity/anemia/self-reported asthma/cellulitis/neuropathy A/P -Cont O2; wean to maintain saturations between 90 and 94%; again encouraged nocturnal NIV use but pt states she has tried multiple times but is simply unable to tolerate the pressures/triggers --> O2 req & dypnea levels appear to be back at home baseline; if recurrent episodes of acute respiratory failure she would likely benefit most from trach & nocturnal vent support that way -Encouraging mobilization & incentive spirometer use -Monitoring clinically off antibiotics -Cont diuresis as tolerated with strict I/Os; replace electrolytes as needed Anticipated discharge tomorrow which seems reasonable. Will sign off but available as needed (please call to notify if pt needs to be reassessed). The entirety of this encounter completed via telemedicine.
[2023-05-31] MEDS: Ondansetron 4 MG/2 ML Vial IV (14:51)
[2023-06-01 03:15] VITALS: BP 139/61; PULSE 97; RESP 18; TEMP 36.6; O2SAT 96
[2023-06-01] MEDS: Metoclopramide 10 MG/2 ML Vial 5 MG IV (06:13)
[2023-06-01] MEDS: Dicyclomine 10 MG Capsule 20 MG PO ×2 (06:13→11:26)
[2023-06-01] MEDS: 0.9% Saline Lock 10 ML Syringe IV (06:16)
[2023-06-01 06:19] LABS: Absolute Lymphocyte Count 1.35 X10^3/uL (0.83-4.51); Absolute Neutrophil Count 8.1 X10^3/uL (2.0-7.7); Basophil# 0.04 X10^3/uL; Basophil% 0.4 % (0-1); Eosinophil# 0.28 X10^3/uL; Eosinophils% 2.6 % (0-5); Hematocrit 29.6 % (37-47); Hemoglobin 7.8 g/dL (12.0-15.0); Lymphocyte # 1.35 X10^3/ul (0.83-4.51); Lymphocyte % 12.4 % (19-41); Mean Corp Hgb Conc 26.4 g/dL (32-36); Mean Corpuscular Hgb 21.3 pg (27.0-32.0); Mean Corpuscular Volume 80.9 fL (81-99); Mean Platelet Vol. 9.3 fl (6.2-12.0); Monocyte# 0.89 X10^3/uL; Monocyte% 8.2 % (0-10); NRBC Flagged by Analyzer 0.3 % (0-5); Neutrophil # 8.13 X10^3/uL (2.7-7.7); Neutrophil % 74.9 % (47-70); Platelet Count 270 K/mm3 (150-450); RBC Distribution Width CV 19.2 % (11.6-14.6); RBC Distribution Width SD 54.7 fl (35.1-43.9); Red Blood Count 3.66 M/mm3 (4.2-5.4); White Blood Count 10.9 K/mm3 (4.4-11.0)
[2023-06-01 07:00] LABS: BUN 9 mg/dL (7-18); BUN/Creat Ratio 11.1 RATIO (10-20); Calcium,Total 8.7 mg/dL (8.5-10.1); Carbon Dioxide > 45.0 mmol/L (21.0-32.0); Chloride 84 mmol/L (98-107); Creatinine, Serum 0.81 mg/dL (0.55-1.02); EST Glomerular Filtration Rate 80 mL/min (>60); Est Glom Filt Rate - Afr Amer 97 mL/min (>60); Estimated Creatinine Clearance 178.62 ml/min; Glucose 110 mg/dL (74-106); Potassium 3.1 mmol/L (3.5-5.1); Sodium Level 135 mmol/L (136-145)
[2023-06-01 07:10] VITALS: PULSE 90; RESP 17; O2SAT 93
[2023-06-01] MEDS: Budesonide Respules 0.5 MG/2 ML AMPUL.NEB. INHALATION (07:10)
[2023-06-01 08:59] VITALS: BP 113/57; PULSE 103; RESP 18; TEMP 36.6; O2SAT 97
[2023-06-01] MEDS: Pantoprazole Sodium 40 MG in 0.9% Normal Saline (100mL MB+) 100 ML 300 MG IV (09:06)
[2023-06-01] MEDS: DULoxetine Hcl 20 MG Capsule PO (09:07)
[2023-06-01] MEDS: Montelukast 10 MG Tablet PO (09:07)
[2023-06-01] MEDS: Potassium Chloride Oral Tablet 20 MEQ 40 MEQ PO (09:08)
[2023-06-01] MEDS: HYDROcodone Bitartrate/Apap 5/325 Tablet PO (11:27)
--- NOTE | 2023-06-01 12:53 | DS.PCM_ITS ---
Providers Date of Admission: 05/23/23 Date of Discharge: 06/01/23 Primary Care Physician: Dr. Mireille Dietz MD Consultations 05/23/23 19:47 Consult: Entry Table Operator / Pulmonary Medicine Routine Consulting Provider: Intensivists/Pulmonary Med Reason for Consult: acute hypercapnic respiratory failure EMERGENT Consult: No Notified: Yes Date Notified: 05/24/23 Time Notified: 06:50 Method of Notification: Text 05/24/23 00:11 Consult: Onc/Wound/leather belt loop cutter Routine Comment: Reason for Consult:: multiple open sores 05/26/23 07:55 Consult: Gastroenterology Routine Consulting Provider: [facility] Reason for Consult: iron deficiency anemia EMERGENT Consult: No Notified: Yes Date Notified: 05/26/23 Time Notified: 07:55 Method of Notification: Text Reason For Visit: FLUID OVERLOAD REQUIRING BIPAP Diagnosis Discharge Diagnosis (1) Acute on chronic respiratory failure with hypoxia and hypercapnia: Status: Chronic Code(s): J96.21 - Acute and chronic respiratory failure with hypoxia; J96.22 - Acute and chronic respiratory failure with hypercapnia (2) Acute respiratory failure with hypoxia: Status: Acute Code(s): J96.01 - Acute respiratory failure with hypoxia Plan #Acute on chronic hypoxic and hypercapnic respiratory failure in setting of untreated OFELIA and OHS * on 3 L of oxygen by nasal canula * pulmonology on board * breathing treatment wtih bronchodilators * titrate oxygen to maintain sats >90% * breathing treatment with bronchodilators * 2D echo showed EF of 65% with no regional wall motion abnormalities noted unable to assess diastolic function. * Bicarb is >45. * ABG ordered, but respiratory unable to get ABG. * BIPAP qhs. and PRN as needed. * #Bilateral lower extremity lymphedema * had chronic stasis changes on lower extremities; little evidence for cellulitis * however she did have 1/2 positive blood cultures for staph epidermidis from cultures done at [facility] * repeat blood cultures negative. * vancomycin discontinued * #Staph epidermidis bacteremia: as above #Acute on chronic anemia * Hb today is 7.3. * iron profile showed severe iron deficiency anemia * gastroenterology on board. * patient has no history of ulcers but does have a history of cervical and uterine cancer. She has no history of GI cancer nd doesnt think she has ever had a colonoscopy or EGD * on IV pantoprazole * Had EGD which showed 3 nonbleeding angiodysplastic lesions in the stomach which were treated with heater probe and colonoscopy showed diverticulosis in the rectosigmoid colon, sigmoid colon and descending colon. She had a 20 mm polyp in the ascending colon which was resected. * p.o. pantoprazole. * on oral iron supplementation. * #Hypokalemia: K is 3.7. Will replace and trend. * #Super morbid obesity. BMI is 84.3. Complicates acute care, expected recovery and prognosis. #Depression: On duloxetine DVT prophylaxis: SCDs. Disposition: patient doesnt want to go home today because her caregivers are not available today. They will be available tomorrow. will DC tomorrow. Medications at Discharge Home Medications acetaminophen 650 mg tablet,extended release 1,300 mg PO Q12H PAIN 10/02/20 albuterol sulfate 90 mcg/actuation breath activated powder inhaler 1 inh inhalation Q6H PRN Wheezing 10/02/20 ciclesonide 80 mcg/actuation aerosol inhaler 1 puff inhalation BID SOB 10/02/20 duloxetine 20 mg capsule,delayed release sprinkle 20 mg PO BID DEPRESSION 10/02/20 gabapentin 300 mg capsule 300 mg PO TID PRN muscle spasms 10/02/20 glucosamine 750 [id number] no1 644 mg-C 30 mg-jamie 1 mg tablet (Osteo Bi-Flex Triple Strength) 2 tab PO DAILY SUPPLEMENT 10/02/20 montelukast 10 mg tablet 10 mg PO BID ALLERGIES 10/02/20 elderberry fruit 200 mg capsule 200 mg PO DAILY supplement 12/05/20 mupirocin 2 % topical ointment 1 applic topical DAILY antibiotic 12/19/20 ferrous sulfate 325 mg (65 mg iron) tablet,delayed release 325 mg PO BID #60 tabs 06/01/23 pantoprazole 40 mg tablet,delayed release 40 mg PO DAILY #30 tabs 06/01/23 Hospital Course Operations None Procedures Colonoscopy and EGD Summary of Care Provided Minutes Spent on Discharge: 55 Hospital Course: HELGA JENSEN, is a 47 F with a PMH as outlined who presents via the ED on 05/23/2023 with a complaint of lower extremity edema. She said she had been dealing with cellulitis of both lower extremities on outpatient basis for several weeks, but didn't feel it was improving. She still had redness of her lower extremities. She denied any fever, chills, cough, chest pain, palpitations, dizziness, nausea, vomiting or any other symptoms. She does wear oxygen at home and says she usually wears 1-2L of oxygen at home, and says her oxygen requirements increase to 2-3 with exertion. Vitals in the ED were BP of 140/85, MI of 111, RR of 26 and temp of 97.9F with oxygen sats of 99% on 4L of oxygen. CBC showed hemoglobin of 8.5 with WBC of 12.3 and platelets of 326. ABG showed pH of 7.27 with pCO2 of 89 and bicarb of 41.1 and pO2 of 70. Chemistry was largely unremarkable apart from bicarb of 43. Chest x-ray showed bilateral lower lobe infiltrates suggesting pneumonia. She was admitted to be managed for acute hypercapnic respiratory failure likely due to undiagnosed obesity hypoventilation syndrome and OFELIA. She was placed on BiPAP. 2D echo done showed EF of 65% with no regional wall motion abnormalities noted and unable to assess diastolic function. Patient's hospital course was also noted to be complicated by anemia. Iron studies show severe iron deficiency anemia. Gastroenterology was therefore consulted. EGD showed 3 nonbleeding angiodysplastic lesions in the stomach which were treated with heater probe and colonoscopy showed diverticulosis in the rectosigmoid colon, sigmoid colon and descending colon with a 20 mm polyp in the ascending colon which was resected. She was placed on p.o. pantoprazole and also started on oral iron supplementation. Hospital course was complicated by hypercapniic respiratory failure. Patient therefore required intermittent BiPAP. This was t hought to be due to obesity hypoventilation syndrome and obstructive sleep apnea. Pulmonology was on board and saw patient during this admission. His symptoms gradually improved and she felt much better. The redness of her lower extremities was noted to be due to cellulitis and rather thought to be due to chronic stasis changes. Patient remained stable and was discharged on 06/01/2023. Patient refused longterm facility and so was discharged home on 06/01/2023. She is follow-up with her primary care doctor within 1 to 2 weeks. She is also to follow-up with pulmonology. Patient seen and examined prior to discharge. He had no active complaints and had an uneventful night. Review of systems otherwise negative. Labs and vitals reviewed. Home medications reviewed and reconciled. Physical Exam Const alert, oriented x3 and no apparent distress Constitutional Narrative: super morbid obesity General Appearance: cooperative, comfortable and well kempt HEENT normocephalic, head/scalp atraumatic, hearing grossly normal bilaterally, nasal mucous membranes and turbinates normal, moist oral mucous membranes and oropharynx normal Mouth: oral and palatal mucosa normal Eyes PERRL, EOMs intact bilaterally and conjunctivae normal Neck full ROM, no lymphadenopathy, supple and no JVD General: trachea midline Lymph Lymphatic: no lymphadenopathy noted and no lymphedema noted Chest inspection of chest normal Resp normal respiratory effort, no retractions and no use of accessory muscles Resp Narrative: mildly diminished breath sounds bibasally, no wheezes or crackles. On 3L of oxygen by nasal canula Cardio regular rate, regular rhythm, S1 normal heart sound, S2 normal heart sound, no murmurs and peripheral pulses 2+ throughout GI normal to inspection, nondistended, normoactive bowel sounds, soft to palpation, non-tender and non-distended GI Narrative: very obese abdomen Back/Spine normal ROM Extremity Extremity Narrative: bilateral lymphedema, with mild erythema of both LEs and chronic stasis changes. General Extremity: edema Skin no rashes or lesions noted Skin Narrative: as under extremity Neuro oriented x3, CN's II-XII intact bilaterally, moves all extremities, no focal motor deficits, no sensory deficits noted and deep tendon reflexes 2+ bilaterally Sensorium / Orientation: awake and alert Speech: speech normal Motor Exam: strength 5/5 throughout and general weakness Psych mental status grossly normal, thought process normal, cooperative and affect normal Appearance: appropriate Weight / BMI Weight Weight: 522 lb 7.929 oz Body Mass Index (BMI) 84.3 ABG / Lab / Microbiology Data 06/01/23 06:05 06/01/23 06:05 Laboratory: Laboratory Results - last 24 hr 06/01/23 06:05: WBC 10.9, RBC 3.66 L, Hgb 7.8 L, Hct 29.6 L, MCV 80.9 L, MCH 21.3 L, MCHC 26.4 L, RDW Std Deviation 54.7 H, RDW Coeff of Fanny 19.2 H, Plt Count 270, MPV 9.3, Immature Gran % (Auto) 1.500 H, Neut % (Auto) 74.9 H, Lymph % (Auto) 12.4 L, [place] % (Auto) 8.2, Eos % (Auto) 2.6, Baso % (Auto) 0.4, Absolute Neuts (auto) 8.1 H, Absolute Lymphs (auto) 1.35, Nucleated RBC % 0.3, Sodium 135 L, Potassium 3.1 L, Chloride 84 L, Carbon Dioxide > 45.0 H*, Anion Gap TNP, BUN 9, Creatinine 0.81, Estim Creat Clear Calc 178.62, Est GFR (MDRD) Af Amer 97, Est GFR (MDRD) Non-Af 80, BUN/Creatinine Ratio 11.1, Glucose 110 H, Calcium 8.7 Microbiology: Microbiology 05/24/23 11:20 Blood Culture (Wb) - Right Hand Blood Culture - Final No growth in 5 days. 05/24/23 11:32 Blood Culture (Wb) - Left Hand Blood Culture - Final No growth in 5 days. D/C Instructions Discharge Diet: Low fat / Low cholesterol Discharge Activity: Return to Normal Activity Weight Bearing Status: Weight bearing as tolerated Call your doctor if you observe: Fever of 101 or Higher, Shortness of breath, Dizziness, Swelling in the ankles, Chest pain and Increased palpitations (irregular heartbeat) Meaningful Use Info Meaningful Use Diagnoses (Choose all that apply): None applicable Discharge Plan Admission Admit Date/Time: 05/23/23 18:18 Primary Reason for Your Visit: respiratory failure, anemia Attending Provider: Xochitl Cardoso Primary Care Provider: Mireille Dietz Consulting Providers: Noel Ochoa; Edgardo Pozo; Mau Pike; Emanuel Nuñez; Cheryl Covington; Clement Martinez; Rossana Kate; Silas Tillman; Zohaib Gold; Ji Boland; Hector Resendez; Erick Orellana; Xochitl Cardoso; Kin Cueva Instructions Patient Instructions: What Are Snoring and Sleep Apnea? Discharge Orders/Prescriptions Prescriptions: New pantoprazole 40 mg tablet,delayed release (DR/EC) 40 mg PO DAILY Qty: 30 2RF ferrous sulfate 325 mg (65 mg iron) tablet,delayed release (DR/EC) 325 mg PO BID Qty: 60 2RF Continued duloxetine 20 mg Capsule, Delayed Rel Sprinkle 20 mg PO BID gabapentin 300 mg Capsule 300 mg PO TID PRN (Reason: muscle spasms) montelukast 10 mg Tablet 10 mg PO BID ciclesonide 80 mcg/actuation Hfa Aerosol Inhaler 1 puff INHALATION BID albuterol sulfate 90 mcg/actuation Aerosol Powdr Breath Activated 1 inh INHALATION Q6H PRN (Reason: Wheezing) acetaminophen 650 mg Tablet Extended Release 1,300 mg PO Q12H Osteo Bi-Flex Triple Strength 750 mg-644 mg- 30 mg-1 mg Tablet 2 tab PO DAILY elderberry fruit 200 mg Capsule 200 mg PO DAILY mupirocin 2 % ointment 1 applic TOPICAL DAILY Patient Comments: Apply 1 application to affected area twice daily. Discontinued ibuprofen 200 mg Tablet 400 mg PO DAILY PRN (Reason: Pain) doxycycline hyclate 100 mg capsule 100 mg PO BID Referrals / Follow Up: Mau Pike DO [Med Staff - Active Staff] - Within 2 Weeks Mireille Dietz MD [Primary Care Provider] - Within 1 Week Jose Wade DO [Med Staff - Active Staff] - Within 2 Weeks Disposition Disposition (needs filled in before D/C Order can be placed): Home, Self Care Charges/Coding Visit Charges Inpatient E&M: 55757 Disch Hosp >30min
== END 2023-06-01 13:24 | disposition home or self-care (01) | DRG 421 ==
LOC: ED 15:42 → PCU 17:43
PROVIDERS: Anesthesiology; Hospitalist; Internal Medicine Gastroenterology; Physician Assistant; Admitting Provider Student in an Organized Health Care Education/Training Program; Emergency Provider Emergency Medicine; PCP Internal Medicine; Visit Provider Student in an Organized Health Care Education/Training Program
PROC: 0DJD8ZZ Inspection of Lower Intestinal Tract, Via Natural or Artificial Opening Endoscopic (ICD-10-PCS; CPT 45378; principal; 2023-05-29 14:25)
DX: E66.2 Morbid (severe) obesity with alveolar hypoventilation (principal); J96.21 Acute and chronic respiratory failure with hypoxia; R78.81 Bacteremia; K31.811 Angiodysplasia of stomach and duodenum with bleeding; E87.29 Other acidosis; Z68.45 Body mass index [BMI] 70 or greater, adult; J96.22 Acute and chronic respiratory failure with hypercapnia; F32.A Depression, unspecified; D50.9 Iron deficiency anemia, unspecified; I87.8 Other specified disorders of veins; I89.0 Lymphedema, not elsewhere classified; K57.30 Diverticulosis of large intestine without perforation or abscess without bleeding; E87.6 Hypokalemia; K63.5 Polyp of colon; E87.79 Other fluid overload; Z99.81 Dependence on supplemental oxygen; Z66 Do not resuscitate; F43.10 Post-traumatic stress disorder, unspecified; Z79.1 Long term (current) use of non-steroidal anti-inflammatories (NSAID); R00.0 Tachycardia, unspecified; G89.29 Other chronic pain; R53.81 Other malaise; Z99.89 Dependence on other enabling machines and devices; B95.8 Unspecified staphylococcus as the cause of diseases classified elsewhere
CPT/HCPCS: 36415; 36600; 51702; 71046; 80048; 80202; 82728; 82803; 83540; 83550; 83880; 84484; 85025; 85027; 85610; 85730; 87040; 88305; 93005; 93306; 94002; 94640; 94762; 97110; 97162; 97166; 97530; 97535; 97802; 99285; J7040; J7050; J7120; Q9957; A4216; C8929; J1940; J2405

== ENCOUNTER 2023-06-27 15:43 | Inpatient (IN) | payer MEDICAID, SELFPAY ==
[2023-06-27] VITALS (9 sets, daily range): BP systolic 109–154; BP diastolic 62–78; PULSE 108–115; RESP 18–22; TEMP 36.6–37.5; O2SAT 94–98; BMI 83.6; BMI 80.8
--- NOTE | 2023-06-27 16:04 | EDS_ITS ---
<Statement entered by Claudia Velarde MD - 06/27/23 21:16> I have personally performed a face to face assessment of the patient and have reviewed the DANNIELLE Note. Patient presents secondary to abdominal pain and pain with swallowing. She states when she swallows she feels like she is swallowing razor blades. She was in the hospital roughly a month ago and had an EGD done. She had 3 bleeding angiodysplasias in her stomach I do not see any significant abnormalities noted from her esophagus. Patient does report a recent cough. She has had some chills at home. She has borderline fever on arrival here. Patient sitting upright in bed no acute distress. Alert and talkative. Head and neck examination grossly unremarkable. Heart is slightly tachycardic and regular. Lung sounds are grossly clear, although exam difficult given her body habitus. Abdomen soft, obese, nontender. Lower extremity examination reveals chronic venous skin changes to the lower extremities. CBC was slightly elevated white count at 12.8. Chest x-ray per my interpretation reveals no obvious focal infiltrate. Radiology interpretation reviewed and agrees. Swab for COVID, influenza, and RSV is negative. Patient does have evidence of UTI on Aj cath specimen that was placed in the ER. Patient is given a dose of Cipro as she does have multiple antibiotic allergies. Patient discussed with hospitalist regarding admission. HPI History of Present Illness Chief Complaint: Abd Pain Narrative Narrative: 47-year-old female with past medical history of COPD on 4 L O2 at baseline, lymphedema, GERD, anemia states today she developed intermittent body shakes. She has not had fever or chills. She reports since her hospitalization a month ago she has had a continued productive cough that is very forceful. Her hospitalization was due to acute on chronic respiratory failure and she was also found to be anemic and had and upper and lower endoscopy. She states she had a polyp removed in her colon. Since then she is still having acid reflux symptoms and has been slowly advancing her diet and increasing pain trying to eat solid foods. She has no dysphagia or vomiting. She has discomfort in her esophagus and upper abdomen which feels similar to the prior admission. She has a daily bowel movement and denies melena or hematochezia. No urinary symptoms. [facility] Medical History (Updated 06/27/23 @ 17:55 by KEIRA Wen) Acute on chronic respiratory failure with hypoxia and hypercapnia Acute respiratory failure with hypoxia Anemia Asthma BMI 70 and over, adult Cancer Chronic pain Crohn disease DVT (deep venous thrombosis) Carole-Danlos syndrome GERD (gastroesophageal reflux disease) Hearing loss, left Hearing loss, right Irregular heart beat Kidney disease Kidney stones Lumbar spondylosis Lymphedema Lymphedema Migraines Morbid obesity Morbid obesity Non-smoker Obesity On home oxygen therapy Renal atrophy Rheumatoid arthritis Shortness of breath Splenomegaly T-cell lymphoma Home Medications acetaminophen 650 mg tablet,extended release 1,300 mg PO Q12H PAIN 10/02/20 [History Last Taken 12/19/20] albuterol sulfate 90 mcg/actuation breath activated powder inhaler 1 inh inhalation Q6H PRN Wheezing 10/02/20 [History Last Taken 12/19/20] ciclesonide 80 mcg/actuation aerosol inhaler 1 puff inhalation BID SOB 10/02/20 [History Last Taken 12/19/20] duloxetine 20 mg capsule,delayed release sprinkle 20 mg PO BID DEPRESSION 10/02/20 [History Last Taken 12/19/20] gabapentin 300 mg capsule 300 mg PO TID muscle spasms 10/02/20 [History Last Taken 12/18/20] glucosamine 750 [id number] no1 644 mg-C 30 mg-jamie 1 mg tablet (Osteo Bi-Flex Triple Strength) 2 tab PO DAILY SUPPLEMENT 10/02/20 [History Last Taken 12/19/20] montelukast 10 mg tablet 10 mg PO BID ALLERGIES 10/02/20 [History Last Taken 12/19/20] elderberry fruit 200 mg capsule 200 mg PO DAILY supplement 12/05/20 [History Last Taken 12/19/20] mupirocin 2 % topical ointment 1 applic topical DAILY antibiotic 12/19/20 [History Last Taken 12/19/20] ferrous sulfate 325 mg (65 mg iron) tablet,delayed release 325 mg PO BID supplement #60 tabs 06/01/23 [Rx Last Taken Unknown] pantoprazole 40 mg tablet,delayed release 40 mg PO DAILY stomach #30 tabs 06/01/23 [Rx Last Taken Unknown] furosemide 40 mg tablet 40 mg PO BID diuretic 06/27/23 [History Last Taken Unknown] hydrocodone 7.5 mg-acetaminophen 325 mg tablet 1 tab PO 4X/DAY PRN PRN pain 06/27/23 [History Last Taken Unknown] Allergy/AdvReac Type Severity Reaction Status Date / Time Nitrate Analogues Allergy Unknown throat/nose Verified 06/27/23 15:44 swelling adhesive tape Allergy Rash Verified 06/27/23 15:44 aspirin Allergy Angioedema Verified 06/27/23 15:44 benzonatate Allergy Shortness Verified 06/27/23 15:44 of breath cephalexin Allergy Rash Verified 06/27/23 15:44 coconut oil Allergy throat Verified 06/27/23 15:44 swells copper Allergy skin peels Verified 06/27/23 15:44 Environmental Allergies: Allergy Rash Verified 06/27/23 15:44 Uncoded formaldehyde Allergy Anaphylaxis Verified 06/27/23 15:44 gold Au 198 Allergy Rash Verified 06/27/23 15:44 Iodine and Iodide Containing Allergy Anaphylaxis Verified 06/27/23 15:44 Produc latex Allergy Upset Verified 06/27/23 15:44 Stomach mold Allergy Anaphylaxis Verified 06/27/23 15:44 nickel Allergy Rash Verified 06/27/23 15:44 nitrofurantoin Allergy Anaphylaxis Verified 06/27/23 15:44 palm oil Allergy Hives Verified 06/27/23 15:44 Penicillins Allergy Rash Verified 06/27/23 15:44 soy Allergy Diarrhea Verified 06/27/23 15:44 Sulfa (Sulfonamide Allergy Rash Verified 06/27/23 15:44 Antibiotics) topiramate Allergy goes Verified 06/27/23 15:44 crazy aspartame AdvReac kidneyfailu Verified 06/27/23 15:44 re lactose AdvReac Nausea Verified 06/27/23 15:44 morphine AdvReac confusion Verified 06/27/23 15:44 Family History Father Heart disease Mother Diabetes Surgical History History of partial hysterectomy Hx of pelvic surgery Previous section Social History household members: children Smoking Status: Never smoker alcohol intake: current alcohol intake frequency: holidays/special occasions only substance use type: does not use ROS ROS ED ROS Narrative Constitutional: Negative for fever, chills. CVS: Negative for chest pain. Respiratory: Positive for cough. GI: Positive for abdominal pain. No vomiting, melena, hematochezia. : Negative for dysuria. Neuro: Negative for headache. EXAM Physical Exam Narrative Exam Narrative: CONST: Obese patient sitting in no acute distress. EYES: Normal inspection. NECK: Normal inspection. RESP: No respiratory distress, clear but significantly diminished from body habitus. CVS: Tachycardic with regular rhythm, no murmur, no gallop. ABD: Soft and nontender, no guarding or rebound, nondistended. SKIN: Color normal, no rash, warm, dry, intact. EXTREMITIES: Bilateral lymphedema, chronic venous stasis changes, no warmth or evidence of cellulitis. NEURO: Alert and answering questions appropriately. PSYCH: Normal affect. Const Vital Signs: 06/27/23 15:48 06/27/23 15:49 06/27/23 16:22 Temperature 98.4 F 99.5 F H Temperature Source Oral Oral Pulse Rate 114 H 115 H Respiratory Rate 18 22 H Respiratory Effort Normal Non-Labored Blood Pressure 149/67 H 154/66 H Blood Pressure Mean 94 95 Pulse Ox 98 98 Oxygen Delivery Method Nasal Cannula Nasal Cannula Oxygen Flow Rate (L/min) 4 4 06/27/23 17:00 06/27/23 18:00 Temperature 99.5 F H 99.1 F Temperature Source Oral Temporal Pulse Rate 111 H 113 H Respiratory Rate 20 H 18 Respiratory Effort Blood Pressure 109/65 124/64 H Blood Pressure Mean 79 84 Pulse Ox 94 97 Oxygen Delivery Method Nasal Cannula Nasal Cannula Oxygen Flow Rate (L/min) 4 MDM MDM MDM Narrative Medical decision making narrative: Differential: Viral URI, pneumonia, UTI Patient developed shakes and states she does not feel well. She is morbidly obese with chronic medical issues. Wears 4 L of O2 at baseline. She is tachycardic in the 110 years and had a low-grade fever of 99.5 here. She has no localizing signs or symptoms on exam. COVID/flu/RSV is negative and CXR negative for pneumonia. Labs show white count of 12.8, hemoglobin is stable at 7.7, minimal hypokalemia at 3.4 with normal renal function. EKG is nonischemic and troponin is 6. Straight catheterized urine is positive for UTI and the nursing staff left Aj and since patient cannot ambulate. Patient states she is not feeling well and is not comfortable going home. She does meet current sepsis criteria with UTI and was treated with IV antibiotics. She also has a secondary issue of a dyne aphasia since last month when she had endoscopy. She is able to tolerate p.o. intake and has no signs of pneumoperitoneum on chest x- ray. She will be treated with a GI cocktail. Case was discussed with the hospitalist for admission. External records reviewed: Admission from 05/22 through 05/31 was for acute on chronic respiratory failure. She was anemic which is why she was worked up with upper and lower scopes. EGD showed 3 nonbleeding gastric angiodysplastic lesions which were treated with a heater probe and colonoscopy showed diverticulosis and a polyp was resected. Lab Data Labs: Laboratory Results - last 24 hr 06/27/23 06/27/23 16:20 17:15 WBC 12.8 H RBC 3.64 L Hgb 7.7 L Hct 29.3 L MCV 80.5 L MCH 21.2 L MCHC 26.3 L RDW Std Deviation 56.1 H RDW Coeff of Fanny 19.2 H Plt Count 227 MPV 9.1 Immature Gran % (Auto) 0.700 Neut % (Auto) 88.4 H Lymph % (Auto) 3.8 L [place] % (Auto) 5.8 Eos % (Auto) 1.1 Baso % (Auto) 0.2 Absolute Neuts (auto) 11.3 H Absolute Lymphs (auto) 0.49 L Nucleated RBC % 0.2 Sodium 136 Potassium 3.4 L Chloride 94 L Carbon Dioxide 41.0 H Anion Gap 1 L BUN 12 Creatinine 0.90 Estim Creat Clear Calc 159.76 Est GFR (MDRD) Af Amer 86 Est GFR (MDRD) Non-Af 71 BUN/Creatinine Ratio 13.3 Glucose 134 H Lactic Acid 1.2 Calcium 8.7 Total Bilirubin 0.70 AST 25 ALT 15 Alkaline Phosphatase 109 Troponin I High Sens 6 Total Protein 8.0 Albumin 2.5 L Globulin 5.5 H Albumin/Globulin Ratio 0.5 L Urine Color Yellow Urine Clarity Sl. Cloudy Urine pH 6.5 Ur Specific [place] 1.015 Urine Protein 100 H Urine Glucose (UA) Normal Urine Ketones Negative Urine Occult Blood 25 H Urine Nitrite Positive H Urine Bilirubin 1 H Urine Urobilinogen 4 H Ur Leukocyte Esterase 500 H Urine RBC 0-5 SEEN Urine WBC 10-25 SEEN Ur Squamous Epith Cells 0 SEEN Urine Bacteria 3+ Urine Mucus 0 SEEN Radiography Diagnostic Testing: Clinical Impression(s) from Imaging Studies Chest X-Ray 06/27/23 16:35 IMPRESSION: Cardiomegaly with pulmonary vascular prominence. Electronically Signed: Rafiq Barrios DO at 16:59 EDT Reading Location ID and State: [facility] / [place] Tel [phone], Service support , EKG Initial EKG: Attestation: I personally reviewed and interpreted this EKG as follows: Interpretation: No Acute Injury Pattern and Sinus Tachycardia Comments: Sinus tachycardia at 115 bpm Nonspecific T wave abnormality, no STEMI Discharge Plan Dx/Rx/DC Orders Clinical Impression: UTI (urinary tract infection), Lymphedema, Sepsis, Chronic anemia, Odynophagia, History of gastroesophageal reflux (GERD) Disposition Disposition: Acute Care Hospital [facility] Discharge Date/Time: 06/27/23 20:02
--- NOTE | 2023-06-27 16:05 | EKG12_ITS ---
Test Reason : Blood Pressure : / mmHG Vent. Rate : 115 BPM Atrial Rate : 115 BPM P-R Int : 136 ms QRS Dur : 076 ms QT Int : 294 ms P-R-T Axes : 052 044 064 degrees QTc Int : 406 ms Sinus tachycardia Nonspecific T wave abnormality Abnormal ECG Confirmed by Kory Bundy ([id number]), market editor ELIZABETH SMITH ([id number]) on 06/30/2023 6:35:13 AM Referred By: Confirmed By:Kory Bundy
--- NOTE | 2023-06-27 16:35 | RAD_ITS ---
INDICATION: cough EXAMINATION/TECHNIQUE: X-RAY - XR Chest 2 Views COMPARISON: May 23, 2023 FINDINGS: LINES/DEVICES: None. LUNGS: No consolidation, edema or effusion. Left basilar atelectasis. No pneumothorax. MEDIASTINUM AND CARDIOVASCULAR STRUCTURES: Cardiac silhouette is enlarged with central pulmonary vascular prominence. Central airways and mediastinal contour are unremarkable. BONES AND SOFT TISSUES: Degenerative vertebral changes and scoliosis. RAD/Chest PA and Lateral IMPRESSION: Cardiomegaly with pulmonary vascular prominence. Electronically Signed: Rafiq Barrios DO at 16:59 EDT Reading Location ID and State: [facility] / [place] Tel [phone], Service support ,
[2023-06-27 16:37] LABS: Absolute Lymphocyte Count 0.49 X10^3/uL (0.83-4.51); Absolute Neutrophil Count 11.3 X10^3/uL (2.0-7.7); Basophil# 0.03 X10^3/uL; Basophil% 0.2 % (0-1); Eosinophil# 0.14 X10^3/uL; Eosinophils% 1.1 % (0-5); Hematocrit 29.3 % (37-47); Hemoglobin 7.7 g/dL (12.0-15.0); Lymphocyte # 0.49 X10^3/ul (0.83-4.51); Lymphocyte % 3.8 % (19-41); Mean Corp Hgb Conc 26.3 g/dL (32-36); Mean Corpuscular Hgb 21.2 pg (27.0-32.0); Mean Corpuscular Volume 80.5 fL (81-99); Mean Platelet Vol. 9.1 fl (6.2-12.0); Monocyte# 0.74 X10^3/uL; Monocyte% 5.8 % (0-10); NRBC Flagged by Analyzer 0.2 % (0-5); Neutrophil % 88.4 % (47-70); POSITIVE DIFFERENTIAL YES; Platelet Count 227 K/mm3 (150-450); RBC Distribution Width CV 19.2 % (11.6-14.6); RBC Distribution Width SD 56.1 fl (35.1-43.9); Red Blood Count 3.64 M/mm3 (4.2-5.4); White Blood Count 12.8 K/mm3 (4.4-11.0)
[2023-06-27] MEDS: Acetaminophen 500 MG Tablet 1000 MG PO (16:39)
[2023-06-27 17:05] LABS: ALB/GLOB Ratio 0.5 RATIO (0.9-2.4); AST(SGOT) 25 U/L (15-37); Alanine Aminotransfer ALT/SGPT 15 U/L (13-56); Albumin, Serum 2.5 g/dL (3.2-5.0); Alkaline Phosphatase 109 U/L (45-117); Anion Gap 1 (5-15); BUN 12 mg/dL (7-18); BUN/Creat Ratio 13.3 RATIO (10-20); Calcium,Total 8.7 mg/dL (8.5-10.1); Chloride 94 mmol/L (98-107); EST Glomerular Filtration Rate 71 mL/min (>60); Est Glom Filt Rate - Afr Amer 86 mL/min (>60); Estimated Creatinine Clearance 159.76 ml/min; Globulin 5.5 g/dL (2.2-4.2); Glucose 134 mg/dL (74-106); Lactic Acid 1.2 mmol/L (0.4-1.9); Potassium 3.4 mmol/L (3.5-5.1); Sodium Level 136 mmol/L (136-145); Troponin-I HS 6 pg/mL (3.0-54.0)
[2023-06-27 17:18] LABS: Mucous, Urine 0 SEEN /hpf (<or=2+); Squamous Epithelial Cells - UA 0 SEEN /hpf (5-10)
[2023-06-27 17:26] LABS: Color, Urine Yellow (Yellow); Glucose, Dipstick Normal (Normal); Ketone-Dipstick Negative (Negative); Leukocyte Esterase-Dipstick 500 /ul (Negative); Nitrite-Dipstick Positive (Negative); Occult Blood-Urine 25 /ul (Negative); Protein-Dipstick 100 mg/dl (Negative); Specific Gravity, Urine 1.015 (1.002-1.030); Urine Bilirubin Dipstick 1 mg/dL (Negative); Urine Clarity Sl. Cloudy (Clear); Urine Urobilinogen 4 mg/dl (Normal); Urine pH 6.5 (5.0 - 8.0)
[2023-06-27 17:32] LABS: Bacteria 3+ /hpf (None Seen); White Blood Cells 10-25 SEEN /hpf (0-5)
[2023-06-27 17:33] LABS: Red Blood Cells-Urine 0-5 SEEN /hpf (0-5)
[2023-06-27] MEDS: Ciprofloxacin 400 MG/200 ML BAG 200 MG IV ×2 (18:18→21:53)
[2023-06-27] MEDS: Mag Hydrox/Al Hydrox/Simeth 30 ML UDC PO (18:18)
--- NOTE | 2023-06-27 18:20 | HP.PCM.HOS_ITS ---
HPI - General HPI Narrative HELGA JENSEN, is a 47 F who presents to the hospital with a couple days of fevers and chills. She is also been coughing which is left with a sore throat which has been having some mild productive sputum though color is normal. She is afebrile here with a white count of 12.8. Urine appears to be positive for UTI, urine cultures are pending. She did have a lengthy admission about a month ago and says that she still feels weak and is not able to ambulate long distances and has to use a wheelchair. She would be interested in SNF placement if it would become necessary given her difficulties at home. Chest x-ray in the ER was unremarkable with no consolidation. She is still requiring the 3 to 4 L of nasal cannula that she was on during her previous admission. [facility] Medical History (Updated 06/27/23 @ 17:55 by KEIRA Wen) Acute on chronic respiratory failure with hypoxia and hypercapnia Acute respiratory failure with hypoxia Anemia Asthma BMI 70 and over, adult Cancer Chronic pain Crohn disease DVT (deep venous thrombosis) Carole-Danlos syndrome GERD (gastroesophageal reflux disease) Hearing loss, left Hearing loss, right Irregular heart beat Kidney disease Kidney stones Lumbar spondylosis Lymphedema Lymphedema Migraines Morbid obesity Morbid obesity Non-smoker Obesity On home oxygen therapy Renal atrophy Rheumatoid arthritis Shortness of breath Splenomegaly T-cell lymphoma Home Medications acetaminophen 650 mg tablet,extended release 1,300 mg PO Q12H PAIN 10/02/20 [ History Last Taken 12/19/20] albuterol sulfate 90 mcg/actuation breath activated powder inhaler 1 inh inhalation Q6H PRN Wheezing 10/02/20 [History Last Taken 12/19/20] ciclesonide 80 mcg/actuation aerosol inhaler 1 puff inhalation BID SOB 10/02/20 [History Last Taken 12/19/20] duloxetine 20 mg capsule,delayed release sprinkle 20 mg PO BID DEPRESSION 10/02/20 [History Last Taken 12/19/20] gabapentin 300 mg capsule 300 mg PO TID PRN muscle spasms 10/02/20 [History Last Taken 12/18/20] glucosamine 750 [id number] no1 644 mg-C 30 mg-jamie 1 mg tablet (Osteo Bi-Flex Triple Strength) 2 tab PO DAILY SUPPLEMENT 10/02/20 [History Last Taken 12/19/20] montelukast 10 mg tablet 10 mg PO BID ALLERGIES 10/02/20 [History Last Taken 12/19/20] elderberry fruit 200 mg capsule 200 mg PO DAILY supplement 12/05/20 [History Last Taken 12/19/20] mupirocin 2 % topical ointment 1 applic topical DAILY antibiotic 12/19/20 [History Last Taken 12/19/20] ferrous sulfate 325 mg (65 mg iron) tablet,delayed release 325 mg PO BID #60 tabs 06/01/23 [Rx Last Taken Unknown] pantoprazole 40 mg tablet,delayed release 40 mg PO DAILY #30 tabs 06/01/23 [Rx Last Taken Unknown] Allergy/AdvReac Type Severity Reaction Status Date / Time Nitrate Analogues Allergy Unknown throat/nose Verified 06/27/23 15:44 swelling adhesive tape Allergy Rash Verified 06/27/23 15:44 aspirin Allergy Angioedema Verified 06/27/23 15:44 benzonatate Allergy Shortness Verified 06/27/23 15:44 of breath cephalexin Allergy Rash Verified 06/27/23 15:44 coconut oil Allergy throat Verified 06/27/23 15:44 swells copper Allergy skin peels Verified 06/27/23 15:44 Environmental Allergies: Allergy Rash Verified 06/27/23 15:44 Uncoded formaldehyde Allergy Anaphylaxis Verified 06/27/23 15:44 gold Au 198 Allergy Rash Verified 06/27/23 15:44 Iodine and Iodide Containing Allergy Anaphylaxis Verified 06/27/23 15:44 Produc latex Allergy Upset Verified 06/27/23 15:44 Stomach mold Allergy Anaphylaxis Verified 06/27/23 15:44 nickel Allergy Rash Verified 06/27/23 15:44 nitrofurantoin Allergy Anaphylaxis Verified 06/27/23 15:44 palm oil Allergy Hives Verified 06/27/23 15:44 Penicillins Allergy Rash Verified 06/27/23 15:44 soy Allergy Diarrhea Verified 06/27/23 15:44 Sulfa (Sulfonamide Allergy Rash Verified 06/27/23 15:44 Antibiotics) topiramate Allergy goes Verified 06/27/23 15:44 crazy aspartame AdvReac kidneyfailu Verified 06/27/23 15:44 re lactose AdvReac Nausea Verified 06/27/23 15:44 morphine AdvReac confusion Verified 06/27/23 15:44 Family History Father Heart disease Mother Diabetes Surgical History History of partial hysterectomy Hx of pelvic surgery Previous section Social History household members: children Smoking Status: Never smoker alcohol intake: current alcohol intake frequency: holidays/special occasions only substance use type: does not use ROS Constitutional Constitutional: Reports chills and fever(s); Denies fatigue or malaise Eyes Eyes: Denies blurry vision ENT HEENT: Denies headache(s) or nasal discharge Cardiovascular Cardiovascular: Denies chest pain, dyspnea on exertion or syncope Respiratory/Chest Respiratory/Chest: Reports productive cough; Denies cough, shortness of breath at rest or shortness of breath with exertion Gastrointestinal Gastrointestinal: Reports abdominal pain; Denies constipation, diarrhea, nausea or vomiting Genitourinary Genitourinary: Denies dysuria Neurologic Neurologic: Denies focal weakness, numbness or tremor(s) Psychiatric Psychiatric: Denies anxiety or depression Vital Signs Vital Signs Vital Signs: 06/27/23 15:48 06/27/23 15:49 06/27/23 16:22 Temperature 98.4 F 99.5 F H Temperature Source Oral Oral Pulse Rate 114 H 115 H Respiratory Rate 18 22 H Respiratory Effort Normal Non-Labored Blood Pressure 149/67 H 154/66 H Blood Pressure Mean 94 95 Pulse Ox 98 98 Oxygen Delivery Method Nasal Cannula Nasal Cannula Oxygen Flow Rate (L/min) 4 4 06/27/23 17:00 06/27/23 18:00 06/27/23 18:18 Temperature 99.5 F H 99.1 F 98.4 F Temperature Source Oral Temporal Pulse Rate 111 H 113 H 112 H Respiratory Rate 20 H 18 19 H Respiratory Effort Blood Pressure 109/65 124/64 H 113/62 Blood Pressure Mean 79 84 79 Pulse Ox 94 97 96 Oxygen Delivery Method Nasal Cannula Nasal Cannula Oxygen Flow Rate (L/min) 4 Weight Weight: 518 lb Body Mass Index (BMI) 83.6 Physical Exam Narrative General: Alert, Oriented x3, Cooperative, No apparent distress HEENT: Atraumatic, PERRLA, EOMI, Normocephalic Oral: Moist Mucosa Neck: Supple, No JVD Lungs: Diminished, Normal air movement, No rhonchi, No wheeze, No rales, limited for body habitus Cardiovascular: Tachycardic, Regular Rhythm, Normal S1, Normal S2, No murmurs, limited for body habitus Abdomen: Soft, Non Tender, Non-Distended, No Hepato-splenomegaly, limited for body habitus Extremities: Chronic bilateral lymphedema, Capillary Refill Less than 3 Seconds Skin: Chronic venous stasis changes bilaterally Musculoskeletal: No Tenderness to Palpation of Joints or Extremities Neurological: No focal neurological deficits, Motor Exam 5/5 strength throughout, Sensory exam intact to light touch and pain Psych/Mental Status: Normal Affect, Appropriate Results Lab / Micro Data 06/27/23 16:20 06/27/23 16:20 Labs: Laboratory Results - last 24 hr 06/27/23 16:20: WBC 12.8 H, RBC 3.64 L, Hgb 7.7 L, Hct 29.3 L, MCV 80.5 L, MCH 21.2 L, MCHC 26.3 L, RDW Std Deviation 56.1 H, RDW Coeff of Fanny 19.2 H, Plt Count 227, MPV 9.1, Immature Gran % (Auto) 0.700, Neut % (Auto) 88.4 H, Lymph % (Auto) 3.8 L, [place] % (Auto) 5.8, Eos % (Auto) 1.1, Baso % (Auto) 0.2, Absolute Neuts (auto) 11.3 H, Absolute Lymphs (auto) 0.49 L, Nucleated RBC % 0.2, Sodium 136, Potassium 3.4 L, Chloride 94 L, Carbon Dioxide 41.0 H, Anion Gap 1 L, BUN 12, Creatinine 0.90, Estim Creat Clear Calc 159.76, Est GFR (MDRD) Af Amer 86, Est GFR (MDRD) Non-Af 71, BUN/Creatinine Ratio 13.3, Glucose 134 H, Lactic Acid 1.2, Calcium 8.7, Total Bilirubin 0.70, AST 25, ALT 15, Alkaline Phosphatase 109, Troponin I High Sens 6, Total Protein 8.0, Albumin 2.5 L, Globulin 5.5 H, Albumin/Globulin Ratio 0.5 L 06/27/23 17:15: Urine Color Yellow, Urine Clarity Sl. Cloudy, Urine pH 6.5, Ur Specific [place] 1.015, Urine Protein 100 H, Urine Glucose (UA) Normal, Urine Ketones Negative, Urine Occult Blood 25 H, Urine Nitrite Positive H, Urine Bilirubin 1 H, Urine Urobilinogen 4 H, Ur Leukocyte Esterase 500 H, Urine RBC 0- 5 SEEN, Urine WBC 10-25 SEEN, Ur Squamous Epith Cells 0 SEEN, Urine Bacteria 3+, Urine Mucus 0 SEEN Micro: Microbiology 06/27/23 16:30 Mucosa - Nose SARS-CoV-2, Influenza & RSV (PCR) - Final Imaging Radiology Impression Chest X-Ray 06/27/23 16:35 IMPRESSION: Cardiomegaly with pulmonary vascular prominence. Electronically Signed: Rafiq Barrios DO at 16:59 EDT Reading Location ID and State: [facility] / [place] Tel [phone], Service support , Assessment & Plan Assessment/Plan (1) UTI (urinary tract infection): PLAN: Plan 1. UTI without sepsis ? She is not septic based on insurance ? Continue with IV Cipro ? Urine cultures pending ? Renal function is normal as is lactic, blood pressures are also stable ? Will allow her to eat and drink, no IV fluids at this time 2. Chronic hypoxic respiratory failure secondary to hypoventilation obesity syndrome in the setting of her super morbid obesity ? Continue with her home oxygen requirements ? She refuses to wear BiPAP due to PTSD ? Will continue with her home inhalers 3. GERD with history of angiodysplasia/chronic iron deficiency anemia ? She had an EGD last month that showed an angiodysplasia that was treated though it was not bleeding ? Continue with her PPI and her iron supplementation 4. Anxiety/depression ? Continue with her home medications ? Appears stable DVT: Lovenox twice daily 75 minutes was spent on direct patient care, including documentation as well as chart review and collaboration with colleagues Charges/Coding Visit Charges Inpatient E&M: 87312 Init Hosp L3
--- NOTE | 2023-06-27 18:22 | ED.RN ---
pt was able to take majority of GI cocktail but not all.
--- NOTE | 2023-06-27 18:24 | ED.RN ---
pt states was recently on antibiotic for UTI
--- NOTE | 2023-06-27 19:05 | ED.RN ---
[facility] physicians have been changing her diuretic prescriptions.
[2023-06-27] MEDS: DULoxetine Hcl 20 MG Capsule PO (21:53)
[2023-06-27] MEDS: Albuterol 2.5 MG/3 ML VIAL.NEB. INHALATION (23:05)
[2023-06-28] VITALS (8 sets, daily range): BP systolic 115–146; BP diastolic 62–76; PULSE 102–109; RESP 16–20; TEMP 36.4–37.1; O2SAT 94–100
[2023-06-28] MEDS: HYDROcodone Bitartrate/Apap 5/325 Tablet PO ×4 (02:28→21:58)
[2023-06-28 05:50] LABS: Absolute Lymphocyte Count 0.57 X10^3/uL (0.83-4.51); Absolute Neutrophil Count 7.1 X10^3/uL (2.0-7.7); Basophil# 0.02 X10^3/uL; Basophil% 0.2 % (0-1); Eosinophil# 0.18 X10^3/uL; Hematocrit 28.5 % (37-47); Hemoglobin 7.4 g/dL (12.0-15.0); Lymphocyte # 0.57 X10^3/ul (0.83-4.51); Lymphocyte % 6.3 % (19-41); Mean Corpuscular Volume 80.7 fL (81-99); Mean Platelet Vol. 9.5 fl (6.2-12.0); Monocyte# 1.03 X10^3/uL; Monocyte% 11.4 % (0-10); NRBC Flagged by Analyzer 0.2 % (0-5); Neutrophil # 7.13 X10^3/uL (2.7-7.7); Neutrophil % 79.1 % (47-70); POSITIVE DIFFERENTIAL YES; POSITIVE MORPHOLOGY YES; Platelet Count 202 K/mm3 (150-450); RBC Distribution Width CV 19.1 % (11.6-14.6); RBC Distribution Width SD 56.3 fl (35.1-43.9); Red Blood Count 3.53 M/mm3 (4.2-5.4)
[2023-06-28 05:54] LABS: Differential Indicated SCAN CRITERIA MET
[2023-06-28 06:29] LABS: Anion Gap 1 (5-15); BUN 10 mg/dL (7-18); BUN/Creat Ratio 12.8 RATIO (10-20); Calcium,Total 8.6 mg/dL (8.5-10.1); Chloride 93 mmol/L (98-107); Creatinine, Serum 0.78 mg/dL (0.55-1.02); EST Glomerular Filtration Rate 84 mL/min (>60); Est Glom Filt Rate - Afr Amer 102 mL/min (>60); Estimated Creatinine Clearance 179.95 ml/min; Glucose 117 mg/dL (74-106); Potassium 3.9 mmol/L (3.5-5.1); Sodium Level 134 mmol/L (136-145)
[2023-06-28 06:40] LABS: Atypical Lymphocyte RARE %
[2023-06-28 06:41] LABS: Differential Comment SCANNED; Microcytosis 1+; Stomatocyte 1+
--- NOTE | 2023-06-28 07:28 | PCM.PN.HOSP ---
Reason for Visit Reason for Visit: Diagnoses Urinary tract infection, site not specified (06/27/23) Objective Data Objective Data Vital Signs: Vital Signs Temp Pulse Resp BP Pulse Ox O2 Del Method O2 Flow Rate 98.7 F 109 H 18 136/74 H 100 Nasal Cannula 4 06/28/23 02:35 06/28/23 02:35 06/28/23 02:35 06/28/23 02:35 06/28/23 02:35 06/28/23 02:35 06/28/23 02:35 Oxygen Flow Rate (L/min) 4 Oxygen Delivery Method Nasal Cannula Weight: 501 lb Body Mass Index (BMI) 80.8 Intake & Output: Intake and Output for Last 24 Hours 06/26/23 06/27/23 06/28/23 23:59 23:59 23:59 Intake Total 400 / 400 Output Total 800 / 800 Balance 400 / 100 -800 / -800 Lab / Micro Data 06/28/23 05:10 06/28/23 05:10 Labs: Laboratory Results - last 24 hr 06/27/23 16:20: WBC 12.8 H, RBC 3.64 L, Hgb 7.7 L, Hct 29.3 L, MCV 80.5 L, MCH 21.2 L, MCHC 26.3 L, RDW Std Deviation 56.1 H, RDW Coeff of Fanny 19.2 H, Plt Count 227, MPV 9.1, Immature Gran % (Auto) 0.700, Neut % (Auto) 88.4 H, Lymph % (Auto) 3.8 L, Clarke % (Auto) 5.8, Eos % (Auto) 1.1, Baso % (Auto) 0.2, Absolute Neuts (auto) 11.3 H, Absolute Lymphs (auto) 0.49 L, Nucleated RBC % 0.2, Sodium 136, Potassium 3.4 L, Chloride 94 L, Carbon Dioxide 41.0 H, Anion Gap 1 L, BUN 12, Creatinine 0.90, Estim Creat Clear Calc 159.76, Est GFR (MDRD) Af Amer 86, Est GFR (MDRD) Non-Af 71, BUN/Creatinine Ratio 13.3, Glucose 134 H, Lactic Acid 1.2, Calcium 8.7, Total Bilirubin 0.70, AST 25, ALT 15, Alkaline Phosphatase 109, Troponin I High Sens 6, Total Protein 8.0, Albumin 2.5 L, Globulin 5.5 H, Albumin/Globulin Ratio 0.5 L 06/27/23 17:15: Urine Color Yellow, Urine Clarity Sl. Cloudy, Urine pH 6.5, Ur Specific [place] 1.015, Urine Protein 100 H, Urine Glucose (UA) Normal, Urine Ketones Negative, Urine Occult Blood 25 H, Urine Nitrite Positive H, Urine Bilirubin 1 H, Urine Urobilinogen 4 H, Ur Leukocyte Esterase 500 H, Urine RBC 0-5 SEEN, Urine WBC 10-25 SEEN, Ur Squamous Epith Cells 0 SEEN, Urine Bacteria 3+, Urine Mucus 0 SEEN 06/28/23 05:10: WBC 9.0, RBC 3.53 L, Hgb 7.4 L, Hct 28.5 L, MCV 80.7 L, MCH 21.0 L, MCHC 26.0 L, RDW Std Deviation 56.3 H, RDW Coeff of Fanny 19.1 H, Plt Count 202, MPV 9.5, Immature Gran % (Auto) 1.000 H, Neut % (Auto) 79.1 H, Lymph % (Auto) 6.3 L, Clarke % (Auto) 11.4 H, Eos % (Auto) 2.0, Baso % (Auto) 0.2, Absolute Neuts (auto) 7.1, Absolute Lymphs (auto) 0.57 L, Nucleated RBC % 0.2, Differential Comment SCANNED, Atypical Lymphocytes RARE, Microcytosis 1+, Stomatocytes 1+ Sodium 134 L, Potassium 3.9, Chloride 93 L, Carbon Dioxide 40.0 H, Anion Gap 1 L, BUN 10, Creatinine 0.78, Estim Creat Clear Calc 179.95, Est GFR (MDRD) Af Amer 102, Est GFR (MDRD) Non-Af 84, BUN/Creatinine Ratio 12.8, Glucose 117 H, Calcium 8.6 Micro: Microbiology 06/27/23 16:30 Mucosa - Nose SARS-CoV-2, Influenza & RSV (PCR) - Final Radiography Diagnostic Testing: Radiology Impression Chest X-Ray 06/27/23 16:35 IMPRESSION: Cardiomegaly with pulmonary vascular prominence. Electronically Signed: Rafiq Barrios DO at 16:59 EDT Reading Location ID and State: [facility] / [place] Tel [phone], Service support , Physical Exam Narrative Patient complain of abdominal pain mainly upper epigastric region. She says it is not burning but stabbing sharp. Eating food makes it worse but it is constant all the time. She states she has cough 3 to 4 days ago and cough might have contributed too. Physical exam General: Alert, Oriented x3, Cooperative, super morbid obesity. BMI 18.9 kg/m?, 501 pound HEENT: Atraumatic, PERRLA, EOMI, Normocephalic Oral: Deep oropharyngeal structures could not be visualized. Neck: Supple, No JVD, Negative Carotid Bruits Chest wall/Lungs: Wide neck. Air entry diminished in bilateral lung bases. No crepitation/rhonchi Cardiovascular: Regular rate, Regular Rhythm, Normal S1, Normal S2, No M/G/R Abdomen: Bowel Sounds Present, Soft, mild tenderness in upper abdomen, Non-Distended fat abdomen : Complain of sharp pain but not burning pain.. No renal angle tenderness. No suprapubic tenderness. Extremities: No edema, Capillary Refill Less than 3 Seconds Skin: No rashes, No breakdown Musculoskeletal: No Tenderness to Palpation of Joints or Extremities Neurological: Cranial nerves II-XII grossly intact, DTR 2+/4. No acute focal neurological deficit. Psych/Mental Status: Flat affect Assessment & Plan Assessment/Plan (1) UTI (urinary tract infection): PLAN: Plan This 47-year-old female with history of COPD on 4 L of oxygen at baseline was admitted with intermittent shivering and body shakes and fever/temperature at home but did not measure it. Last time she was admitted between 05/23/2023 to 06/01/2023 for acute on chronic combined respiratory failure due to untreated OHS and OFELIA, bilateral lower extremity lymphedema and acute on chronic anemia. 1. UTI without sepsis: Her abdomen pain is mainly epigastric but she has been on micturition with sharp but not burning. Continue IV Cipro. Patient does not meet criteria of sepsis. ? Continue with IV Cipro ? Urine cultures pending ? Renal function is normal as is lactic, blood pressures are also stable ? Will allow her to eat and drink, no IV fluids at this time 2. Chronic hypoxic respiratory failure secondary to hypoventilation obesity syndrome in the setting of her super morbid obesity ? Continue with her home oxygen requirements ? She refuses to wear BiPAP due to PTSD ? continue with her home inhalers She had 3 bleeding angiodysplasias in her stomach. 3. GERD with history of angiodysplasia/chronic iron deficiency anemia ? She had an EGD last month that showed an angiodysplasia that was treated though it was not bleeding ? Continue with her PPI and her iron supplementation 4. Anxiety/depression ? Continue with her home medications ? Appears stable 5. Complain of pain over upper abdomen and ribs: Patient states he has been coughing and might have pleuritic pain. Patient on hydrocodone 7.5 mg/325 at home, continued. On PPI. DVT: Lovenox twice daily Super morbid obesity: BMI 80.9 kg/m?. Charges/Coding Visit Charges Inpatient E&M: 55096 Subs Hosp L2
[2023-06-28] MEDS: Pantoprazole Sodium 40 MG Tablet PO (07:40)
[2023-06-28] MEDS: DULoxetine Hcl 20 MG Capsule PO ×2 (07:40→21:58)
[2023-06-28] MEDS: Ensure Plus High Protein 120 ML LIQUID PO (07:40)
[2023-06-28] MEDS: Ferrous Sulfate 325 MG Tablet PO ×2 (07:40→16:25)
--- NOTE | 2023-06-28 09:16 | CASEMGMT ---
JAN Readmission Note Previous Admission: 05/22-06/01/23 Diagnosis: acute on chronic respiratory failure with hypoxia and hypercapnia DC Disposition: Home with caregivers F/U in 2 with PCP as needed Pt. was discharged home with caregivers, and was to follow up with her PCP as needed. Patient was interested in HHC for therapy on index stay, however unable to secure an accepting HHC agency. Pt declined SNF at that time. Current Admission: Admitted 06/27/23 Current Diagnosis: UTI Met with patient bedside and she reports there have been no changes since her recent discharge. Pt reports an increase in weakness. DC PLAN: Patient reports that she is not interested in going to SNF due to negative past experiences. Pt reports she wants to try to go to IPR only, and wants to go to the one at [facility]. Pt reports her family member had a positive experience. Informed pt that she may not meet the criteria for IPR but will discuss with SW. Jennifer Willis MSN, RN, CCM
[2023-06-28] MEDS: Ciprofloxacin 400 MG/200 ML BAG 200 MG IV ×2 (10:14→22:20)
[2023-06-28] MEDS: Furosemide 40 MG Tablet PO ×2 (10:21→21:58)
[2023-06-28] MEDS: Montelukast 10 MG Tablet PO ×2 (10:21→21:58)
[2023-06-28] MEDS: Mupirocin Ointment 22gm Tube 1 APPLIC TOPICAL (10:49)
[2023-06-28] MEDS: Ipratropium/Albuterol Sulfate 3 ML AMPUL.NEB INHALATION ×2 (11:15→19:29)
[2023-06-28] MEDS: guaiFENesin/D-Methorphan TAB.SR.12H 2 TABLET PO ×2 (13:06→21:58)
--- NOTE | 2023-06-28 15:11 | CASEMGMT ---
Addendum entered by Suma Spicer 06/28/23 16:24: Social Work Pt's waiver child welfare caseworker is Claudia [phone]. RUSLAN Lew Original Note: Social Work SW met w/pt and daughter in room in regard to discharge plan. Pt and daughter explained to SW that pt did to go SW in the past and had a terrible experience. Additionally, other family members have been to other facilities and have had bad experiences. They do not want pt going to SNF. Pt is requesting the inpt rehab unit. SW explained can make referral but she may not qualify as she does not have a rehab diagnosis and also based on therapy today would not be able to do the 3 hours required in rehab. SW asked if they would like a list of facilities in the event rehab is not able to take pt. They are agreeable to lists of both SNFs and rehabs. SW provided list of both intermediate facilities and rehab units that take pt's insurance, are in pt's preferred geographic area, and complete w/quality and resource use data. Daughter states to send a referral to [place] [facility] in the hospital. SW gently explained that there is not an inpt rehab in [facility], asked if she was talking about [facility] in [facility]. She states no, pt had rehab in [place]. SW again explained there is no hospital based rehab in [place]. They then agreed to a rehab referral to [facility]. SW sent referral in [facility] to [place], and left a message for [facility] inpt rehab. Daughter did tell SW that she had HHC with [facility] in the past, however they stopped coming to the home and never said why. SW to follow up Friday on rehab referrals. RUSLAN Lew
[2023-06-29 03:54] VITALS: BP 141/73; PULSE 106; RESP 18; TEMP 36.5; O2SAT 95
[2023-06-29] MEDS: HYDROcodone Bitartrate/Apap 5/325 Tablet PO ×2 (03:55→18:35)
[2023-06-29 05:21] LABS: Absolute Neutrophil Count 6.2 X10^3/uL (2.0-7.7); Basophil# 0.01 X10^3/uL; Basophil% 0.1 % (0-1); Eosinophil# 0.21 X10^3/uL; Eosinophils% 2.7 % (0-5); Hematocrit 29.5 % (37-47); Hemoglobin 7.6 g/dL (12.0-15.0); Lymphocyte % 7.7 % (19-41); Mean Corp Hgb Conc 25.8 g/dL (32-36); Mean Corpuscular Hgb 21.2 pg (27.0-32.0); Mean Corpuscular Volume 82.2 fL (81-99); Mean Platelet Vol. 9.3 fl (6.2-12.0); Monocyte# 0.68 X10^3/uL; Monocyte% 8.8 % (0-10); NRBC Flagged by Analyzer 0 % (0-5); Neutrophil # 6.17 X10^3/uL (2.7-7.7); Neutrophil % 79.7 % (47-70); POSITIVE DIFFERENTIAL YES; Platelet Count 191 K/mm3 (150-450); RBC Distribution Width CV 18.9 % (11.6-14.6); RBC Distribution Width SD 56.9 fl (35.1-43.9); Red Blood Count 3.59 M/mm3 (4.2-5.4); White Blood Count 7.8 K/mm3 (4.4-11.0)
[2023-06-29 05:43] LABS: Anion Gap 0 (5-15); BUN 10 mg/dL (7-18); BUN/Creat Ratio 14.3 RATIO (10-20); Calcium,Total 8.7 mg/dL (8.5-10.1); Chloride 91 mmol/L (98-107); EST Glomerular Filtration Rate 96 mL/min (>60); Est Glom Filt Rate - Afr Amer 116 mL/min (>60); Estimated Creatinine Clearance 200.51 ml/min; Glucose 137 mg/dL (74-106); Potassium 3.5 mmol/L (3.5-5.1); Sodium Level 134 mmol/L (136-145)
[2023-06-29] MEDS: Ferrous Sulfate 325 MG Tablet PO ×2 (07:45→17:31)
[2023-06-29] MEDS: guaiFENesin/D-Methorphan TAB.SR.12H 2 TABLET PO ×2 (07:45→21:43)
[2023-06-29] MEDS: Pantoprazole Sodium 40 MG Tablet PO (07:46)
[2023-06-29] MEDS: Furosemide 40 MG Tablet PO ×2 (07:46→21:44)
[2023-06-29] MEDS: DULoxetine Hcl 20 MG Capsule PO ×2 (07:47→21:43)
[2023-06-29] MEDS: Montelukast 10 MG Tablet PO ×2 (07:47→21:44)
[2023-06-29] MEDS: Mupirocin Ointment 22gm Tube 1 APPLIC TOPICAL (07:47)
[2023-06-29 08:02] VITALS: O2SAT 95
[2023-06-29 09:08] VITALS: BP 122/67; PULSE 97; RESP 18; TEMP 36.4; O2SAT 96
[2023-06-29] MEDS: Vancomycin HCl 2,000 MG in 0.9% Normal Saline (500mL Bag) 500 ML 250 MG IV (11:13)
[2023-06-29] MEDS: Ciprofloxacin 400 MG/200 ML BAG 200 MG IV (11:23)
[2023-06-29 11:37] VITALS: BP 144/67; PULSE 82; RESP 18; TEMP 36.4; O2SAT 97
--- NOTE | 2023-06-29 11:38 | PCM.RX.CS ---
Consult Antibiotic Management Pharmacy has been consulted to manage selected antibiotic: Vancomycin Type of Intervention Type of Consult: New start Suspected Infection Suspected Infection: Bacteremia Prior Doses of Antibiotics Prior Doses of Antibiotics Received/Current Regimen: Vancomycin 2000 mg IV x 1 given 06/29/23 @ 1113 Labs Labs: Sodium 134 mmol/L (136-145) L 06/29/23 04:55 Potassium 3.5 mmol/L (3.5-5.1) 06/29/23 04:55 Chloride 91 mmol/L (98-107) L 06/29/23 04:55 Carbon Dioxide 43.0 mmol/L (21.0-32.0) H 06/29/23 04:55 Anion Gap 0 (5-15) L 06/29/23 04:55 BUN 10 mg/dL (7-18) 06/29/23 04:55 Creatinine 0.70 mg/dL (0.55-1.02) 06/29/23 04:55 Est GFR (MDRD) Af Amer 116 mL/min (>60) 06/29/23 04:55 Est GFR (MDRD) Non-Af 96 mL/min (>60) 06/29/23 04:55 BUN/Creatinine Ratio 14.3 RATIO (10-20) 06/29/23 04:55 Glucose 137 mg/dL (74-106) H 06/29/23 04:55 Microbiology Microbiology: Microbiology 06/27/23 17:15 Urine Catheter - Catheter Urine Culture - Final Escherichia coli 06/27/23 16:20 Blood Culture (Wb) - Anticubital Left Blood Culture - Preliminary Coag Negative Staph 06/27/23 16:30 Blood Culture (Wb) - Left Forearm Bacteria Detection (PCR) - Final Coag Negative Staph 06/27/23 16:30 Blood Culture (Wb) - Left Forearm Blood Culture - Preliminary Coag Negative Staph 06/27/23 16:30 Mucosa - Nose SARS-CoV-2, Influenza & RSV (PCR) - Final Dosing Weight Weight used for dosin lb 7.189 oz Estimated Creatinine Clearance Estimated Creatinine Clearance: ~200 Goal Trough Goal Trough: 15-20 mcg/mL Pharmacy Plan for Drug Dosing Pharmacy Plan for Drug Dosing: Vancomycin 2000 mg IV x 1 followed by 1500 mg IV Q8H Pharmacy Service will continue to monitor and adjust dosing as required. Follow-Up Labs Follow-Up Labs: Trough: Vancomycin Date/Time Labs Ordered Labs to be done on [date and time ordered]: 06/29 @ 6307
--- NOTE | 2023-06-29 13:06 | PCM.PN.HOSP ---
Reason for Visit Reason for Visit: Diagnoses Urinary tract infection, site not specified (06/27/23) Objective Data Objective Data Vital Signs: Vital Signs Temp Pulse Resp BP Pulse Ox O2 Del Method O2 Flow Rate 97.6 F L 82 18 144/67 H 97 Nasal Cannula 3.5 06/29/23 11:37 06/29/23 11:37 06/29/23 11:37 06/29/23 11:37 06/29/23 11:37 06/29/23 11:37 06/29/23 12:02 Oxygen Flow Rate (L/min) 3.5 Oxygen Delivery Method Nasal Cannula Weight: 501 lb 0.007 oz Body Mass Index (BMI) 80.8 Intake & Output: Intake and Output for Last 24 Hours 06/27/23 06/28/23 06/29/23 23:59 23:59 23:59 Intake Total 400 / 400 1400 / 1400 908.33 / 908.33 Output Total 2850 / 2850 1900 / 1900 Balance 400 / 100 -1450 / -1450 -991.67 / -991.67 Lab / Micro Data 06/29/23 04:55 06/29/23 04:55 Labs: Laboratory Results - last 24 hr 06/29/23 04:55: WBC 7.8, RBC 3.59 L, Hgb 7.6 L, Hct 29.5 L, MCV 82.2, MCH 21.2 L, MCHC 25.8 L, RDW Std Deviation 56.9 H, RDW Coeff of Fanny 18.9 H, Plt Count 191, MPV 9.3, Immature Gran % (Auto) 1.000 H, Neut % (Auto) 79.7 H, Lymph % (Auto) 7.7 L, Pleasants % (Auto) 8.8, Eos % (Auto) 2.7, Baso % (Auto) 0.1, Absolute Neuts (auto) 6.2, Absolute Lymphs (auto) 0.60 L, Nucleated RBC % 0, Sodium 134 L, Potassium 3.5, Chloride 91 L, Carbon Dioxide 43.0 H, Anion Gap 0 L, BUN 10, Creatinine 0.70, Estim Creat Clear Calc 200.51, Est GFR (MDRD) Af Amer 116, Est GFR (MDRD) Non-Af 96, BUN/Creatinine Ratio 14.3, Glucose 137 H, Calcium 8.7 Micro: Microbiology 06/27/23 17:15 Urine Catheter - Catheter Urine Culture - Final Escherichia coli 06/27/23 16:20 Blood Culture (Wb) - Anticubital Left Blood Culture - Preliminary Coag Negative Staph 06/27/23 16:30 Blood Culture (Wb) - Left Forearm Bacteria Detection (PCR) - Final Coag Negative Staph 06/27/23 16:30 Blood Culture (Wb) - Left Forearm Blood Culture - Preliminary Coag Negative Staph 06/27/23 16:30 Mucosa - Nose SARS-CoV-2, Influenza & RSV (PCR) - Final Physical Exam Narrative Patient complain of right flank/lumbar region pain. No fever. Still has complaining that urine is not burning but stabbing sharp. Eating food makes it worse but it is constant all the time. Physical exam General: Alert, Oriented x3, Cooperative, super morbid obesity. BMI 18.9 kg/m?, 501 pound HEENT: Atraumatic, PERRLA, EOMI, Normocephalic Oral: Deep oropharyngeal structures could not be visualized. Neck: Supple, No JVD, Negative Carotid Bruits Chest wall/Lungs: Wide neck. Air entry diminished in bilateral lung bases. No crepitation/rhonchi Cardiovascular: Regular rate, Regular Rhythm, Normal S1, Normal S2, No M/G/R Abdomen: Mild tenderness on the right lumbar region. Bowel Sounds Present, Soft,Non-Distended fat abdomen : Complain of sharp pain but not burning pain.. No renal angle tenderness. No suprapubic tenderness. Extremities: No edema, Capillary Refill Less than 3 Seconds Skin: No rashes, No breakdown Musculoskeletal: No Tenderness to Palpation of Joints or Extremities Neurological: Cranial nerves II-XII grossly intact, DTR 2+/4. No acute focal neurological deficit. Psych/Mental Status: Flat affect Assessment & Plan Assessment/Plan (1) UTI (urinary tract infection): PLAN: Plan This 47-year-old female with history of COPD on 4 L of oxygen at baseline was admitted with intermittent shivering and body shakes and fever/temperature at home but did not measure it. Last time she was admitted between 05/23/2023 to 06/01/2023 for acute on chronic combined respiratory failure due to untreated OHS and OFELIA, bilateral lower extremity lymphedema and acute on chronic anemia. 1. UTI without sepsis: Her abdomen pain is mainly epigastric but she has been on micturition with sharp but not burning. Continue IV Cipro. Patient does not meet criteria of sepsis. ? Continue with IV Cipro ? Urine cultures pending ? Renal function is normal as is lactic, blood pressures are also stable ? Will allow her to eat and drink, no IV fluids at this time 06/28: Critical value of gram-positive cocci in cluster, PCR: Negative staph in both bottles of blood culture. Urine culture ESBL negative E. coli more than 100,000 colonies resistant to fluoroquinolones, ceftriaxone and Bactrim. Sensitive to cefepime, Zosyn and imipenem. IV antibiotics Cipro changed to IV cefepime. Empirically patient is started on IV vancomycin. ID consulted and discussed with him. CT abdomen was ordered looking for urinary tract calculi as patient had history of kidney stone in the past. Patient denies having cystoscopy in the past and has seen urologist many years ago but not recently. Patient cannot fit in the CT abdomen therefore ultrasound ordered. Ultrasound kidneys and bladder ordered for tomorrow AM. Patient also has long allergy list including cephalexin penicillin, sulfonamides and iodine contrast. Therefore IV meropenem ordered after 30 minutes of IV Solu-Medrol 40 mg 1 dose. 2. Chronic hypoxic respiratory failure secondary to hypoventilation obesity syndrome in the setting of her super morbid obesity ? Continue with her home oxygen requirements ? She refuses to wear BiPAP due to PTSD ? continue with her home inhalers She had 3 bleeding angiodysplasias in her stomach. 3. GERD with history of angiodysplasia/chronic iron deficiency anemia ? She had an EGD last month that showed an angiodysplasia that was treated though it was not bleeding ? Continue with her PPI and her iron supplementation 4. Anxiety/depression ? Continue with her home medications ? Appears stable 5. Complain of pain over upper abdomen and ribs: Patient states he has been coughing and might have pleuritic pain. Patient on hydrocodone 7.5 mg/325 at home, continued. On PPI. DVT: Lovenox twice daily Super morbid obesity: BMI 80.9 kg/m?. Total time of the visit including total time spent in counseling or coordination of care, (more than 50% of the total time, spent in obtaining medical information from nurses and other ancillary care providers,explaining to the patient about labs, imaging, diagnosis and management of active complex medical conditions), complicated management of CoNS staph bacteremia ID consult, complicated antibiotic management with long history, review of labs and imaging is 40 minutes. Charges/Coding Visit Charges Inpatient E&M: 44491 Subs Hosp L3
[2023-06-29] MEDS: Meropenem 1 GM in 0.9% Normal Saline (100mL MB+) 100 ML IV ×2 (14:21→21:37)
[2023-06-29 16:10] VITALS: PULSE 96; RESP 16
[2023-06-29] MEDS: Ipratropium/Albuterol Sulfate 3 ML AMPUL.NEB INHALATION (16:10)
[2023-06-29 16:16] VITALS: BP 130/80; PULSE 103; RESP 18; TEMP 36.4; O2SAT 99
[2023-06-29] MEDS: Vancomycin HCl 1,500 MG in 0.9% Normal Saline (500mL Bag) 500 ML 250 MG IV (21:34)
[2023-06-30] MEDS: HYDROcodone Bitartrate/Apap 5/325 Tablet PO ×3 (01:57→18:00)
[2023-06-30 02:00] VITALS: BP 143/72; PULSE 102; RESP 18; TEMP 36.6; O2SAT 95
[2023-06-30] MEDS: Gabapentin 300 MG Capsule PO ×2 (03:39→21:54)
[2023-06-30] MEDS: Vancomycin HCl 1,500 MG in 0.9% Normal Saline (500mL Bag) 500 ML 250 MG IV (05:01)
[2023-06-30] MEDS: Meropenem 1 GM in 0.9% Normal Saline (100mL MB+) 100 ML IV ×3 (05:01→21:54)
--- NOTE | 2023-06-30 05:55 | US_ITS ---
STUDY: RENAL ULTRASOUND - COMPLETE REASON FOR EXAM: Female, 47 years old. Renal stone, UTI AND BACTEREMIA TECHNIQUE: Ultrasound evaluation of the kidneys was performed with real-time and static garza-scale imaging. COMPARISON: None. FINDINGS: RIGHT KIDNEY: Normal location of the right kidney, which is normal in size. The right kidney measures 12.4 cm x 4.5 cm x 3.6 cm. There is a normal cortex of the right kidney. The renal cortex measures 1.3 cm. There is no right renal mass or cyst. There are no right renal calculi. There is no right hydronephrosis. DISTAL RIGHT URETER: There is non-visualization of the distal right ureter. There is no demonstrated right ureterovesical junction calculus. There is no demonstrated right ureteral jet. LEFT KIDNEY: Normal location of the left kidney, which is normal in size. The left kidney measures 12.9 cm x 6.2 cm x 7.4 cm. There is a normal cortex of the left kidney. The renal cortex measures 2.3 cm. There is no left renal mass or cyst. There are no left renal calculi. There is no left hydronephrosis. DISTAL LEFT URETER: There is non-visualization of the distal left ureter. There is no demonstrated left ureterovesical junction calculus. There is no demonstrated left ureteral jet. BLADDER: A Aj catheter is seen within the urinary bladder. The urinary bladder is empty. Incidental note is made of gallstones. US/Kidney and Bladder IMPRESSION: Normal ultrasound of the kidneys. Gallstones. Electronically Signed: Mika Lockwood MD at 15:01 EDT ,
[2023-06-30 06:49] LABS: Absolute Lymphocyte Count 0.61 X10^3/uL (0.83-4.51); Absolute Neutrophil Count 12.8 X10^3/uL (2.0-7.7); Basophil# 0.03 X10^3/uL; Basophil% 0.2 % (0-1); Hemoglobin 8.1 g/dL (12.0-15.0); Lymphocyte # 0.61 X10^3/ul (0.83-4.51); Lymphocyte % 4.3 % (19-41); Mean Corp Hgb Conc 26.1 g/dL (32-36); Mean Corpuscular Hgb 20.7 pg (27.0-32.0); Mean Corpuscular Volume 79.3 fL (81-99); Mean Platelet Vol. 9.5 fl (6.2-12.0); Monocyte# 0.48 X10^3/uL; Monocyte% 3.4 % (0-10); NRBC Flagged by Analyzer 0.2 % (0-5); Neutrophil # 12.78 X10^3/uL (2.7-7.7); Platelet Count 252 K/mm3 (150-450); RBC Distribution Width CV 18.7 % (11.6-14.6); RBC Distribution Width SD 53.7 fl (35.1-43.9); Red Blood Count 3.91 M/mm3 (4.2-5.4); White Blood Count 14.1 K/mm3 (4.4-11.0)
[2023-06-30 06:53] VITALS: O2SAT 93
--- NOTE | 2023-06-30 07:05 | PN.HOSP_ITS ---
Reason for Visit Reason for Visit: Diagnoses Urinary tract infection, site not specified (06/27/23) Subjective Subjective Feels legs are very swollen in both LE. Concerned that her lymphedema is developing into cellulitis. Objective Data Objective Data Vital Signs: Vital Signs Temp Pulse Resp BP Pulse Ox O2 Del Method O2 Flow Rate 36.6 C 102 H 18 143/72 H 95 Nasal Cannula 3 06/30/23 02:00 06/30/23 02:00 06/30/23 02:00 06/30/23 02:00 06/30/23 02:00 06/30/23 02:00 06/30/23 02:00 Oxygen Flow Rate (L/min) 3 Oxygen Delivery Method Nasal Cannula Weight: 227.25 kg Body Mass Index (BMI) 80.8 Intake & Output: Intake and Output for Last 24 Hours 06/28/23 06/29/23 06/30/23 23:59 23:59 23:59 Intake Total 1400 / 1400 2190.00 / 2190.00 120 / 120 Output Total 2850 / 2850 3500 / 3500 450 / 450 Balance -1450 / -1450 -1310.00 / -1310.00 -330 / -330 Lab / Micro Data 06/30/23 06:05 06/30/23 06:05 Labs: Laboratory Results - last 24 hr 06/30/23 06:05: WBC 14.1 H, RBC 3.91 L, Hgb 8.1 L, Hct 31.0 L, MCV 79.3 L, MCH 20.7 L, MCHC 26.1 L, RDW Std Deviation 53.7 H, RDW Coeff of Fanny 18.7 H, Plt Count 252, MPV 9.5, Immature Gran % (Auto) 1.100 H, Neut % (Auto) 91.0 H, Lymph % (Auto) 4.3 L, Bracken % (Auto) 3.4, Eos % (Auto) 0.0, Baso % (Auto) 0.2, Absolute Neuts (auto) 12.8 H, Absolute Lymphs (auto) 0.61 L, Nucleated RBC % 0.2 Micro: Microbiology 06/27/23 17:15 Urine Catheter - Catheter Urine Culture - Final Escherichia coli 06/27/23 16:20 Blood Culture (Wb) - Anticubital Left Blood Culture - Preliminary Coag Negative Staph 06/27/23 16:30 Blood Culture (Wb) - Left Forearm Bacteria Detection (PCR) - Final Coag Negative Staph 06/27/23 16:30 Blood Culture (Wb) - Left Forearm Blood Culture - Preliminary Coag Negative Staph 06/27/23 16:30 Mucosa - Nose SARS-CoV-2, Influenza & RSV (PCR) - Final Physical Exam Const alert and no apparent distress Resp normal respiratory effort, no retractions, no use of accessory muscles and clear to auscultation bilaterally Cardio regular rate, regular rhythm, S1 normal heart sound and S2 normal heart sound GI normal to inspection, nondistended, normoactive bowel sounds and soft to palpation Extremity Extremity Narrative: bilateral non-pitting LE edema. lymphedematous changes bilaterally, but with increased redness in LLE, distal. Neuro Sensorium / Orientation: awake and alert Assessment & Plan Assessment/Plan (1) UTI (urinary tract infection): PLAN: Plan UTI * UCx with E. coli. Resistant to ampicillin, amp/SB, cefazolin, CTX, cipro. * Had been on Ciprofloxacin, since changed to meropenem on the . * ID consulted. * Kidney US ordered. Bacteremia * + COOK JELLY on 2/2 cultures on the . * Repeat BCx * continue vancomycin for now. LLE cellulitis * complicated by LE lymphedema * could be source of bacteremia. Chronic conditions: * Chronic hypoxic respiratory failure secondary to hypoventilation obesity syndrome in the setting of her super morbid obesity: Continue with her home oxygen requirements. She refuses to wear BiPAP due to PTSD. continue with her home inhalers * GERD with history of angiodysplasia/chronic iron deficiency anemia: She had an EGD last month that showed an angiodysplasia that was treated though it was not bleeding. Continue with her PPI and her iron supplementation * Anxiety/depression: Continue with her home medications. Stable. * Complain of pain over upper abdomen and ribs: Patient states he has been coughing and might have pleuritic pain. Patient on hydrocodone 7.5 mg/325 at home, continued. On PPI. * Morbid obesity w BMI of 81. Recommended nutrition consult. Advised not drinking her calories (she a couple 8oz regular Cokes and endorsed drinking juice). DVT: Lovenox twice daily Greater than 55 minutes of which greater than 50% time was discussed with the patient at bedside about her cellulitis, bacteremia and UTI. Also discussing diet with her and advised her not to drink her calories. Recommending nutrition evaluation. Charges/Coding Visit Charges Inpatient E&M: 10382 Subs Hosp L3
[2023-06-30 07:26] LABS: Anion Gap 1 (5-15); BUN 10 mg/dL (7-18); BUN/Creat Ratio 13.9 RATIO (10-20); Chloride 93 mmol/L (98-107); Creatinine, Serum 0.72 mg/dL (0.55-1.02); EST Glomerular Filtration Rate 93 mL/min (>60); Est Glom Filt Rate - Afr Amer 112 mL/min (>60); Estimated Creatinine Clearance 194.94 ml/min; Glucose 171 mg/dL (74-106); Sodium Level 135 mmol/L (136-145)
[2023-06-30] MEDS: Furosemide 40 MG Tablet PO ×2 (09:13→21:55)
[2023-06-30] MEDS: Montelukast 10 MG Tablet PO ×2 (09:14→21:55)
[2023-06-30] MEDS: guaiFENesin/D-Methorphan TAB.SR.12H 2 TABLET PO ×2 (09:14→21:54)
[2023-06-30] MEDS: Pantoprazole Sodium 40 MG Tablet PO (09:15)
[2023-06-30] MEDS: Ferrous Sulfate 325 MG Tablet PO ×2 (09:15→15:47)
[2023-06-30] MEDS: DULoxetine Hcl 20 MG Capsule PO ×2 (09:15→21:55)
[2023-06-30] MEDS: Mupirocin Ointment 22gm Tube 1 APPLIC TOPICAL (09:16)
[2023-06-30 09:35] VITALS: BP 128/67; PULSE 104; RESP 20; TEMP 36.5; O2SAT 95
--- NOTE | 2023-06-30 10:43 | CASEMGMT ---
Social Work Referrals had been made to [facility] and [facility]. Both facilities have declined pt. SW met with pt and introduced self and role of SW. Pt called dgt on phone to be a part of the conversation. SW updated that Inpatient Rehab at [facility] and [facility] have declined pt. SW broached topic of SNF stay and reviewed therapy notes with pt and dgt. Pt and dgt are unwilling to go to SNF and feel pt can return home. Pt's dgt is pt's paid home health aid and is present in the home around the clock. Pt has needed DME and bathroom is handicap accessible. Pt is requesting home health therapy and nursing for wound care. Pt has had [facility] in the past. NICOLE updated RNCM of pt wishes for home with home health care. RAFAEL Santoyo
--- NOTE | 2023-06-30 11:06 | CASEMGMT ---
Addendum entered by Marci Mejias 06/30/23 15:32: JAN VÁZQUEZ into pt room, pt made aware of the attempted agencies that were notified for her referral. Pt states she wants answers from [facility]. She asked RN KATHIE to call N again and ask if they will take her. She states she called them multiple times and they did not return her calls. TC to Pepper at [facility] while in the pt room, she states she was not with the company at the time so she cannot speak on this. She asks for the referral to be sent and she will speak with the DON. Pt made aware of this and referral sent at this time. Addendum entered by Marci Mejias 06/30/23 15:23: Received notification from all agencies listed below that they are unable to accept pt either via phone or by careport. Original Note: Updated by that pt would like to return home with [facility] and she has no preference of agency. TC to [facility] who has seen pt in the past, spoke with Pepper who states pt was noncompliant in the past and they are unable to take pt back. TC to [facility], referral made to [facility], will await acceptance. Due to pt insurance, referral sent in [facility] to Non[facility], [facility], [place], [facility], [facility], [facility], [facility], [facility], [facility], [facility], [facility], [facility], [facility], [place] and [facility]. Will await determination of agencies.
--- NOTE | 2023-06-30 12:18 | NURSING ---
This RN talked with Rudolph, Pharmacist as 's Vanco trough is 26.0. Rudolph states not to give the 1200 dose of it.
--- NOTE | 2023-06-30 12:28 | PCM.RX.CS ---
Consult Antibiotic Management Pharmacy has been consulted to manage selected antibiotic: Vancomycin Type of Intervention Type of Consult: Follow-up Suspected Infection Suspected Infection: Bacteremia Prior Doses of Antibiotics Prior Doses of Antibiotics Received/Current Regimen: Received 2000mg iv x 1 as loading dose followed by 1500mg iv q8h. Labs Labs: Sodium 135 mmol/L (136-145) L 06/30/23 06:05 Potassium 4.0 mmol/L (3.5-5.1) 06/30/23 06:05 Chloride 93 mmol/L (98-107) L 06/30/23 06:05 Carbon Dioxide 41.0 mmol/L (21.0-32.0) H 06/30/23 06:05 Anion Gap 1 (5-15) L 06/30/23 06:05 BUN 10 mg/dL (7-18) 06/30/23 06:05 Creatinine 0.72 mg/dL (0.55-1.02) 06/30/23 06:05 Est GFR (MDRD) Af Amer 112 mL/min (>60) 06/30/23 06:05 Est GFR (MDRD) Non-Af 93 mL/min (>60) 06/30/23 06:05 BUN/Creatinine Ratio 13.9 RATIO (10-20) 06/30/23 06:05 Glucose 171 mg/dL (74-106) H 06/30/23 06:05 Vancomycin Trough 26.0 ug/mL (5.0-15.0) H 06/30/23 11:26 Microbiology Microbiology: Microbiology 06/27/23 16:20 Blood Culture (Wb) - Anticubital Left Blood Culture - Final Coag Negative Staph 06/27/23 16:30 Blood Culture (Wb) - Left Forearm Bacteria Detection (PCR) - Final Coag Negative Staph 06/27/23 16:30 Blood Culture (Wb) - Left Forearm Blood Culture - Preliminary Staphylococcus hominis hominis 06/27/23 17:15 Urine Catheter - Catheter Urine Culture - Final Escherichia coli 06/27/23 16:30 Mucosa - Nose SARS-CoV-2, Influenza & RSV (PCR) - Final Dosing Weight Weight used for dosin kg Estimated Creatinine Clearance Estimated Creatinine Clearance: ~200ml/min Goal Trough Goal Trough: 15-20 mcg/mL Pharmacy Plan for Drug Dosing Pharmacy Plan for Drug Dosing: Trough today ~6.5hrs post dose elevated at 26.0. Recommend a decrease in dose of 1000mg iv 8hrs starting ~20hrs post last dose. New trough ordered for before 4th dose of new dosing. Pharmacy Service will continue to monitor and adjust dosing as required. Follow-Up Labs Follow-Up Labs: Trough: Vancomycin (07.02.23 @0030)
--- NOTE | 2023-06-30 13:28 | PCM.CONS.GEN ---
Assessment & Plan Assessment/Plan (1) Bacteremia due to coagulase-negative Staphylococcus: PLAN: Cont vanc for CoNS (+) bcx x2. Cont rocio for ecoli uti. Will follow, thank you (2) UTI (urinary tract infection): HPI Consult Data Date of Consult: 06/30/23 HPI Narrative Reason for Consultation: bacteremia HPI Narrative: HELGA JENSEN, is a 47 F who presented 06/26 with one month of abd pain after eating. Outpt workup was neg. Over past few days developed fever, chills, mild cough, some change in urine color. Came to ED, admitted on cipro. Vanc added when bcx (+). Now on vanc/rocio after ucx were finalized. Feeling better. Abd pain slightly improved. Able to eat some. Some LLE redness and increased pain/swelling. Full ROS performed and neg except as noted above. Is on 3-4L home o2. [facility] Medical History Acute on chronic respiratory failure with hypoxia and hypercapnia Acute respiratory failure with hypoxia Anemia Asthma BMI 70 and over, adult Cancer Chronic pain Crohn disease DVT (deep venous thrombosis) Carole-Danlos syndrome GERD (gastroesophageal reflux disease) Hearing loss, left Hearing loss, right Irregular heart beat Kidney disease Kidney stones Lumbar spondylosis Lymphedema Lymphedema Migraines Morbid obesity Morbid obesity Non-smoker Obesity On home oxygen therapy Renal atrophy Rheumatoid arthritis Shortness of breath Splenomegaly T-cell lymphoma Home Medications acetaminophen 650 mg tablet,extended release 1,300 mg PO Q12H PAIN 10/02/20 [History Last Taken 12/19/20] albuterol sulfate 90 mcg/actuation breath activated powder inhaler 1 inh inhalation Q6H PRN Wheezing 10/02/20 [History Last Taken 12/19/20] ciclesonide 80 mcg/actuation aerosol inhaler 1 puff inhalation BID SOB 10/02/20 [History Last Taken 12/19/20] duloxetine 20 mg capsule,delayed release sprinkle 20 mg PO BID DEPRESSION 10/02/20 [History Last Taken 12/19/20] gabapentin 300 mg capsule 300 mg PO TID muscle spasms 10/02/20 [History Last Taken 12/18/20] glucosamine 750 [id number] no1 644 mg-C 30 mg-jamie 1 mg tablet (Osteo Bi-Flex Triple Strength) 2 tab PO DAILY SUPPLEMENT 10/02/20 [History Last Taken 12/19/20] montelukast 10 mg tablet 10 mg PO BID ALLERGIES 10/02/20 [History Last Taken 12/19/20] elderberry fruit 200 mg capsule 200 mg PO DAILY supplement 12/05/20 [History Last Taken 12/19/20] mupirocin 2 % topical ointment 1 applic topical DAILY antibiotic 12/19/20 [History Last Taken 12/19/20] ferrous sulfate 325 mg (65 mg iron) tablet,delayed release 325 mg PO BID supplement #60 tabs 06/01/23 [Rx Last Taken Unknown] pantoprazole 40 mg tablet,delayed release 40 mg PO DAILY stomach #30 tabs 06/01/23 [Rx Last Taken Unknown] furosemide 40 mg tablet 40 mg PO BID diuretic 06/27/23 [History Last Taken Unknown] hydrocodone 7.5 mg-acetaminophen 325 mg tablet 1 tab PO 4X/DAY PRN PRN pain 06/27/23 [History Last Taken Unknown] Allergy/AdvReac Type Severity Reaction Status Date / Time Nitrate Analogues Allergy Unknown throat/nose Verified 06/27/23 15:44 swelling adhesive tape Allergy Rash Verified 06/27/23 15:44 aspirin Allergy Angioedema Verified 06/27/23 15:44 benzonatate Allergy Shortness Verified 06/27/23 15:44 of breath cephalexin Allergy Rash Verified 06/27/23 15:44 coconut oil Allergy throat Verified 06/27/23 15:44 swells copper Allergy skin peels Verified 06/27/23 15:44 Environmental Allergies: Allergy Rash Verified 06/27/23 15:44 Uncoded formaldehyde Allergy Anaphylaxis Verified 06/27/23 15:44 gold Au 198 Allergy Rash Verified 06/27/23 15:44 Iodine and Iodide Containing Allergy Anaphylaxis Verified 06/27/23 15:44 Produc latex Allergy Upset Verified 06/27/23 15:44 Stomach mold Allergy Anaphylaxis Verified 06/27/23 15:44 nickel Allergy Rash Verified 06/27/23 15:44 nitrofurantoin Allergy Anaphylaxis Verified 06/27/23 15:44 palm oil Allergy Hives Verified 06/27/23 15:44 Penicillins Allergy Rash Verified 06/27/23 15:44 soy Allergy Diarrhea Verified 06/27/23 15:44 Sulfa (Sulfonamide Allergy Rash Verified 06/27/23 15:44 Antibiotics) topiramate Allergy goes Verified 06/27/23 15:44 crazy aspartame AdvReac kidneyfailu Verified 06/27/23 15:44 re lactose AdvReac Nausea Verified 06/27/23 15:44 morphine AdvReac confusion Verified 06/27/23 15:44 Family History Father Heart disease Mother Diabetes Surgical History History of partial hysterectomy Hx of pelvic surgery Previous section Social History household members: children Smoking Status: Never smoker alcohol intake: current alcohol intake frequency: holidays/special occasions only substance use type: does not use Physical Exam Const alert, oriented x3 and no apparent distress General Appearance: cooperative HEENT normocephalic and head/scalp atraumatic Eyes PERRL and EOMs intact bilaterally Neck supple and No nodes Resp clear to auscultation bilaterally Auscultation: diminished lung sounds Cardio regular rate and regular rhythm GI soft to palpation, non-tender and non-distended Extremity General Extremity: edema Skin Skin Narrative: BLE erythema, L spencer mild warmth Neuro CN's II-XII intact bilaterally Lab / Micro Data Attestation: I reviewed the patient's lab results. 06/30/23 06:05 06/30/23 06:05 Labs: Laboratory Results - last 24 hr 06/30/23 06:05: WBC 14.1 H, RBC 3.91 L, Hgb 8.1 L, Hct 31.0 L, MCV 79.3 L, MCH 20.7 L, MCHC 26.1 L, RDW Std Deviation 53.7 H, RDW Coeff of Fanny 18.7 H, Plt Count 252, MPV 9.5, Immature Gran % (Auto) 1.100 H, Neut % (Auto) 91.0 H, Lymph % (Auto) 4.3 L, [place] % (Auto) 3.4, Eos % (Auto) 0.0, Baso % (Auto) 0.2, Absolute Neuts (auto) 12.8 H, Absolute Lymphs (auto) 0.61 L, Nucleated RBC % 0.2, Sodium 135 L, Potassium 4.0, Chloride 93 L, Carbon Dioxide 41.0 H, Anion Gap 1 L, BUN 10, Creatinine 0.72, Estim Creat Clear Calc 194.94, Est GFR (MDRD) Af Amer 112, Est GFR (MDRD) Non-Af 93, BUN/Creatinine Ratio 13.9, Glucose 171 H, Calcium 9.0 06/30/23 11:26: Vancomycin Trough 26.0 H Micro: Microbiology 06/27/23 16:20 Blood Culture (Wb) - Anticubital Left Blood Culture - Final Coag Negative Staph 06/27/23 16:30 Blood Culture (Wb) - Left Forearm Bacteria Detection (PCR) - Final Coag Negative Staph 06/27/23 16:30 Blood Culture (Wb) - Left Forearm Blood Culture - Preliminary Staphylococcus hominis hominis 06/27/23 17:15 Urine Catheter - Catheter Urine Culture - Final Escherichia coli
[2023-06-30 17:53] VITALS: BP 128/80; PULSE 104; RESP 19; TEMP 36.6; O2SAT 99
[2023-06-30] MEDS: 0.9% Normal Saline (250mL Bag) 250 ML 15 ML IV (19:57)
[2023-06-30 21:48] VITALS: BP 158/82; PULSE 99; RESP 18; TEMP 36.4; O2SAT 96
[2023-07-01] MEDS: Vancomycin IV 1,000 MG/200 ML BAG 200 MG IV ×3 (01:22→16:34)
[2023-07-01] MEDS: Ondansetron 4 MG/2 ML Vial IV (05:10)
[2023-07-01] MEDS: Meropenem 1 GM in 0.9% Normal Saline (100mL MB+) 100 ML IV (05:13)
[2023-07-01 05:17] VITALS: BP 151/77; PULSE 98; RESP 18; TEMP 36.6; O2SAT 97
--- NOTE | 2023-07-01 07:03 | PN.HOSP_ITS ---
Reason for Visit Reason for Visit: Diagnoses Other staphylococcus as the cause of diseases classified elsewhere (06/27/23) Urinary tract infection, site not specified (06/27/23) Bacteremia (06/27/23) Subjective Subjective States that leg started seeping behind her knees. Objective Data Objective Data Vital Signs: Vital Signs Temp Pulse Resp BP Pulse Ox O2 Del Method O2 Flow Rate 36.6 C 98 18 151/77 H 97 Nasal Cannula 3.5 07/01/23 05:17 07/01/23 05:17 07/01/23 05:17 07/01/23 05:17 07/01/23 05:17 07/01/23 05:17 07/01/23 05:17 Oxygen Flow Rate (L/min) 3.5 Oxygen Delivery Method Nasal Cannula Weight: 227.25 kg Body Mass Index (BMI) 80.8 Intake & Output: Intake and Output for Last 24 Hours 06/29/23 06/30/23 07/01/23 23:59 23:59 23:59 Intake Total 2190.00 / 2190.00 1984 1220 / 1220 Output Total 3500 / 3500 2450 / 2450 1400 / 1400 Balance -1310.00 / -1310.00 -465 / -465 -180 / -180 Lab / Micro Data 07/01/23 06:07 07/01/23 06:07 Labs: Laboratory Results - last 24 hr 06/30/23 06:05: Sodium 135 L, Potassium 4.0, Chloride 93 L, Carbon Dioxide 41.0 H, Anion Gap 1 L, BUN 10, Creatinine 0.72, Estim Creat Clear Calc 194.94, Est GFR (MDRD) Af Amer 112, Est GFR (MDRD) Non-Af 93, BUN/Creatinine Ratio 13.9, Glucose 171 H, Calcium 9.0 06/30/23 11:26: Vancomycin Trough 26.0 H Micro: Microbiology 06/27/23 16:20 Blood Culture (Wb) - Anticubital Left Blood Culture - Final Coag Negative Staph 06/27/23 16:30 Blood Culture (Wb) - Left Forearm Bacteria Detection (PCR) - Final Coag Negative Staph 06/27/23 16:30 Blood Culture (Wb) - Left Forearm Blood Culture - Preliminary Staphylococcus hominis hominis 06/27/23 17:15 Urine Catheter - Catheter Urine Culture - Final Escherichia coli 06/27/23 16:30 Mucosa - Nose SARS-CoV-2, Influenza & RSV (PCR) - Final Radiography Diagnostic Testing: Radiology Impression Renal Ultrasound 06/30/23 05:55 IMPRESSION: Normal ultrasound of the kidneys. Gallstones. Electronically Signed: Mika Lockwood MD at 15:01 EDT , Physical Exam Const Constitutional Narrative: sleeping, awoke when I introduced myself, but dozed off several times during encounter. HEENT head/scalp atraumatic Cardio regular rate, regular rhythm, S1 normal heart sound and S2 normal heart sound GI normal to inspection, nondistended, normoactive bowel sounds, soft to palpation, non-tender and non-distended Extremity Extremity Narrative: lymphedematous LE. erythema on LLE, slightly extending beyond lines of demarcation. Assessment & Plan Assessment/Plan (1) UTI (urinary tract infection): PLAN: Plan UTI * UCx with E. coli. Resistant to ampicillin, amp/SB, cefazolin, CTX, cipro. * Had been on Ciprofloxacin, since changed to meropenem on the . * ID consulted. 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 * Repeat BCx on the are pending. * continue vancomycin for now. LLE cellulitis * complicated by LE lymphedema * could be source of bacteremia. Chronic conditions: * Chronic hypoxic respiratory failure secondary to hypoventilation obesity syndrome in the setting of her super morbid obesity: Continue with her home oxygen requirements. She refuses to wear BiPAP due to PTSD. continue with her home inhalers * GERD with history of angiodysplasia/chronic iron deficiency anemia: She had an EGD last month that showed an angiodysplasia that was treated though it was not bleeding. Continue with her PPI and her iron supplementation * Anxiety/depression: Continue with her home medications. Stable. * Complain of pain over upper abdomen and ribs: Patient states he has been coughing and might have pleuritic pain. Patient on hydrocodone 7.5 mg/325 at home, continued. On PPI. * Morbid obesity w BMI of 81. Recommended nutrition consult. Advised not drinking her calories (she a couple 8oz regular Cokes and endorsed drinking juice). * Lymphedema: advised fluid restriction 1.5 liters/day. DVT: Lovenox twice daily Told the patient that ultimate decisions regards to her diet this can to be up to her particular when she leaves the hospital. Informed patient to return to [facility] to make the right decisions to help with her overall health. She expresses concerns about which she been told in regards to being told to drink more fluids in the past. Told her that in order to move forward, to help her overall health, I recommend limiting her fluid intake so that she can have fluid taken off. I am concerned the patient looks for reasons not to follow through on recommendations and I am concerned the patient may be looking forward to being sick. No home agency available for the patient. Patient does not want to go to a [facility] Charges/Coding Visit Charges Inpatient E&M: 25559 Subs Hosp L2
[2023-07-01 07:11] LABS: Absolute Neutrophil Count 8.7 X10^3/uL (2.0-7.7); Basophil# 0.04 X10^3/uL; Basophil% 0.3 % (0-1); Eosinophil# 0.24 X10^3/uL; Hematocrit 32.1 % (37-47); Hemoglobin 8.5 g/dL (12.0-15.0); Mean Corp Hgb Conc 26.5 g/dL (32-36); Mean Corpuscular Hgb 21.4 pg (27.0-32.0); Mean Corpuscular Volume 80.9 fL (81-99); Monocyte# 0.99 X10^3/uL; Monocyte% 8.3 % (0-10); NRBC Flagged by Analyzer 0.3 % (0-5); Neutrophil # 8.67 X10^3/uL (2.7-7.7); Neutrophil % 72.4 % (47-70); Platelet Count 262 K/mm3 (150-450); RBC Distribution Width CV 18.9 % (11.6-14.6); RBC Distribution Width SD 55.8 fl (35.1-43.9); Red Blood Count 3.97 M/mm3 (4.2-5.4)
[2023-07-01 07:47] LABS: Anion Gap 2 (5-15); BUN 15 mg/dL (7-18); BUN/Creat Ratio 20.4 RATIO (10-20); Calcium,Total 9.2 mg/dL (8.5-10.1); Chloride 92 mmol/L (98-107); Creatinine, Serum 0.74 mg/dL (0.55-1.02); EST Glomerular Filtration Rate 90 mL/min (>60); Est Glom Filt Rate - Afr Amer 109 mL/min (>60); Estimated Creatinine Clearance 189.67 ml/min; Glucose 123 mg/dL (74-106); Potassium 3.5 mmol/L (3.5-5.1); Sodium Level 136 mmol/L (136-145)
[2023-07-01 07:58] VITALS: BP 151/73; PULSE 111; RESP 16; TEMP 36.7; O2SAT 96
[2023-07-01] MEDS: HYDROcodone Bitartrate/Apap 5/325 Tablet PO ×2 (08:19→19:44)
[2023-07-01] MEDS: Ferrous Sulfate 325 MG Tablet PO ×2 (08:19→16:32)
[2023-07-01 08:56] VITALS: O2SAT 92
[2023-07-01] MEDS: Mupirocin Ointment 22gm Tube 1 APPLIC TOPICAL (09:43)
[2023-07-01] MEDS: Furosemide 40 MG Tablet PO ×2 (09:44→22:26)
[2023-07-01] MEDS: DULoxetine Hcl 20 MG Capsule PO ×2 (09:44→22:26)
[2023-07-01] MEDS: guaiFENesin/D-Methorphan TAB.SR.12H 2 TABLET PO ×2 (09:44→22:26)
[2023-07-01] MEDS: Montelukast 10 MG Tablet PO ×2 (09:45→22:26)
[2023-07-01] MEDS: Pantoprazole Sodium 40 MG Tablet PO (09:45)
--- NOTE | 2023-07-01 10:53 | PCM.PN.ID ---
Physical Exam Narrative Feeling a little better, pain improved but still LLE redness Const alert and no apparent distress General Appearance: cooperative Resp normal air movement and clear to auscultation bilaterally Cardio regular rate and regular rhythm GI soft to palpation, non-tender and non-distended Extremity General Extremity: edema Skin Skin Narrative: L lower leg redness ID ID: Route of nutrition/ use of supplements: [] Nutritional Intake: [] IV Site: [] Aj Catheter: [] Assessment & Plan Assessment/Plan (1) Bacteremia due to coagulase-negative Staphylococcus: PLAN: Cont vanc for CoNS (+) bcx x2. Change to erta for ecoli uti. Plan for discharge will be one week po linezolid 600mg bid and one week iv ertapenem 1 gm daily with weekly labs. Will follow (2) UTI (urinary tract infection):
--- NOTE | 2023-07-01 11:03 | CASEMGMT ---
Addendum entered by Marci Mejias 07/01/23 15:20: 1340-Per [facility], pt has to call [facility] to have this sorted out before they can bill the infusion supplies and med. Pt is aware of this and states her mother is calling and then will conference her in on the call. She is aware that she cannot have the med delivered until this happens. 1510- RN KATHIE into pt room, pt states that her mother has called and left messages to the local [facility] office x2 and is awaiting a returned call. Updated hospitalist, pt will stay today and plan for dc tomorrow. Pt is aware that should this not be completed for dc tomorrow the infusion center may need to be the back up plan for the infusion. Pt reports great pain and then called her dtr to be on speakerphone. Pt dtr Veena states that she will be in and wants to speak to the charge nurse as she does not understand why pt will be dc'd tomorrow if she is in pain. Made Veena aware that pt bedside nurse is Jamarcus and she may speak to him regarding her concerns. Updated charge nurse. Addendum entered by Marci Mejias 07/01/23 13:14: [facility] is reporting a test claim rejected that pt has other insurance coverage. TC to Medicaid, unable to navigate successfully through the prompts to reach an answer of pt eligibility. TC to registration who states pt is eligible. JAN VÁZQUEZ into pt room, pt to call medicaid. She states then that her mother took out a life insurance policy and [facility] thinks this is insurance. She is sorting this out. Pt reports that she will self pay if [facility] denies paying. Updated [facility] on this information and awaiting a response. Original Note: Pt to be dc'd with IV atb x7 days. JAN VÁZQUEZ into pt room, pt adamantly refuses a SNF and states she is unable to come to the Infusion Center daily. She called her dtr Veena and put her on speakerphone to discuss. Pt dtr reports she had done IV atb in the past and is willing to do this again. 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 Pt and dtr are aware that she will be dc'ing home with no services and IV atb. She states this is what she wants and recalls negative past experiences with SNFs. Provided pt with a verbal local in network list of Infusion Companies, pt chose [facility]. [facility] and requested a zoom teach for pt. Hospitalist and ID agreeable to pt dc'ing home with pt dtr performing IV. Will await [facility] response.
[2023-07-01] MEDS: Ertapenem Sod 1 GM in 0.9% Normal Saline (50mL MB+) 50 ML IV (11:07)
[2023-07-01 15:37] VITALS: BP 130/70; PULSE 107; RESP 16; TEMP 36.8; O2SAT 94
[2023-07-01 19:38] VITALS: BP 161/70; PULSE 104; RESP 18; TEMP 36.8; O2SAT 98
[2023-07-01] MEDS: Gabapentin 300 MG Capsule PO (22:28)
[2023-07-02 00:58] LABS: Vancomycin, Trough Level 22.8 ug/mL (5.0-15.0)
--- NOTE | 2023-07-02 01:13 | PCM.RX.CS ---
Consult Antibiotic Management Pharmacy has been consulted to manage selected antibiotic: Vancomycin Type of Intervention Type of Consult: Follow-up Labs Labs: Sodium 136 mmol/L (136-145) 07/01/23 06:07 Potassium 3.5 mmol/L (3.5-5.1) 07/01/23 06:07 Chloride 92 mmol/L (98-107) L 07/01/23 06:07 Carbon Dioxide 42.0 mmol/L (21.0-32.0) H 07/01/23 06:07 Anion Gap 2 (5-15) L 07/01/23 06:07 BUN 15 mg/dL (7-18) 07/01/23 06:07 Creatinine 0.74 mg/dL (0.55-1.02) 07/01/23 06:07 Est GFR (MDRD) Af Amer 109 mL/min (>60) 07/01/23 06:07 Est GFR (MDRD) Non-Af 90 mL/min (>60) 07/01/23 06:07 BUN/Creatinine Ratio 20.4 RATIO (10-20) H 07/01/23 06:07 Glucose 123 mg/dL (74-106) H 07/01/23 06:07 Vancomycin Trough 22.8 ug/mL (5.0-15.0) H 07/02/23 00:27 Microbiology Microbiology: Microbiology 06/27/23 16:20 Blood Culture (Wb) - Anticubital Left Blood Culture - Final Coag Negative Staph 06/27/23 16:30 Blood Culture (Wb) - Left Forearm Bacteria Detection (PCR) - Final Coag Negative Staph 06/27/23 16:30 Blood Culture (Wb) - Left Forearm Blood Culture - Preliminary Staphylococcus hominis hominis 06/27/23 17:15 Urine Catheter - Catheter Urine Culture - Final Escherichia coli 06/27/23 16:30 Mucosa - Nose SARS-CoV-2, Influenza & RSV (PCR) - Final Dosing Weight Weight used for dosin kg Estimated Creatinine Clearance Estimated Creatinine Clearance: 190 Goal Trough Goal Trough: 15-20 mcg/mL Pharmacy Plan for Drug Dosing Pharmacy Plan for Drug Dosing: Vancomycin trough level was again above the target range, at 22.8. This was drawn 8hrs post-dose. Will hold current dosing and draw a random vanco level in 8 hours to determine further dosing. Pharmacy Service will continue to monitor and adjust dosing as required. Follow-Up Labs Follow-Up Labs: Trough: Vancomycin (random) Date/Time Labs Ordered Labs to be done on [date and time ordered]: 07/02/23 @7346
[2023-07-02 03:22] VITALS: BP 135/98; PULSE 105; RESP 18; TEMP 36.4; O2SAT 98
[2023-07-02] MEDS: HYDROcodone Bitartrate/Apap 5/325 Tablet PO ×2 (03:34→18:37)
[2023-07-02 06:50] VITALS: O2SAT 94
--- NOTE | 2023-07-02 07:08 | PCM.PN.HOSP ---
Reason for Visit Reason for Visit: Diagnoses Other staphylococcus as the cause of diseases classified elsewhere (06/27/23) Urinary tract infection, site not specified (06/27/23) Bacteremia (06/27/23) Subjective Subjective Complains of pain when she swallows. Does not vomit, does not choke. Having to utilize a soft/liquid diet. Pain on right abdomen from polyp removal last month. Objective Data Objective Data Vital Signs: Vital Signs Temp Pulse Resp BP Pulse Ox O2 Del Method O2 Flow Rate 36.4 C L 105 H 18 135/98 H 98 Nasal Cannula 3.5 07/02/23 03:22 07/02/23 03:22 07/02/23 03:22 07/02/23 03:22 07/02/23 03:22 07/02/23 03:38 07/02/23 03:38 Oxygen Flow Rate (L/min) 3.5 Oxygen Delivery Method Nasal Cannula Weight: 227.25 kg Body Mass Index (BMI) 80.8 Intake & Output: Intake and Output for Last 24 Hours 06/30/23 07/01/23 07/02/23 23:59 23:59 23:59 Intake Total 1984 / 1984 1800 / 2300 1000 / 1000 Output Total 2450 / 2450 3250 / 3850 1200 / 1200 Balance -465 / -465 -1450 / -1550 -200 / -200 Lab / Micro Data 07/01/23 06:07 07/01/23 06:07 Labs: Laboratory Results - last 24 hr 07/01/23 06:07: WBC 12.0 H, RBC 3.97 L, Hgb 8.5 L, Hct 32.1 L, MCV 80.9 L, MCH 21.4 L, MCHC 26.5 L, RDW Std Deviation 55.8 H, RDW Coeff of Fanny 18.9 H, Plt Count 262, MPV 9.0, Immature Gran % (Auto) 2.000 H, Neut % (Auto) 72.4 H, Lymph % (Auto) 15.0 L, Karnes % (Auto) 8.3, Eos % (Auto) 2.0, Baso % (Auto) 0.3, Absolute Neuts (auto) 8.7 H, Absolute Lymphs (auto) 1.80, Nucleated RBC % 0.3, Sodium 136, Potassium 3.5, Chloride 92 L, Carbon Dioxide 42.0 H, Anion Gap 2 L, BUN 15, Creatinine 0.74, Estim Creat Clear Calc 189.67, Est GFR (MDRD) Af Amer 109, Est GFR (MDRD) Non-Af 90, BUN/Creatinine Ratio 20.4 H, Glucose 123 H, Calcium 9.2 07/02/23 00:27: Vancomycin Trough 22.8 H Micro: Microbiology 06/27/23 16:20 Blood Culture (Wb) - Anticubital Left Blood Culture - Final Coag Negative Staph 06/27/23 16:30 Blood Culture (Wb) - Left Forearm Bacteria Detection (PCR) - Final Coag Negative Staph 06/27/23 16:30 Blood Culture (Wb) - Left Forearm Blood Culture - Preliminary Staphylococcus hominis hominis 06/27/23 17:15 Urine Catheter - Catheter Urine Culture - Final Escherichia coli 06/27/23 16:30 Mucosa - Nose SARS-CoV-2, Influenza & RSV (PCR) - Final Physical Exam Const alert and no apparent distress HEENT head/scalp atraumatic HEENT Narrative: no pharyngeal erythema, no thrush. Resp normal respiratory effort, no retractions, no use of accessory muscles and clear to auscultation bilaterally Cardio regular rate, regular rhythm, S1 normal heart sound and S2 normal heart sound GI GI Narrative: TTP RUQ. Extremity Extremity Narrative: lymphedematous changes. Erythema of distal LLE, but no appreciable warmth. Neuro Sensorium / Orientation: awake and alert Assessment & Plan Assessment/Plan (1) UTI (urinary tract infection): PLAN: Plan UTI UCx with E. coli. Resistant to ampicillin, amp/SB, cefazolin, CTX, cipro. Had been on Ciprofloxacin, since changed to meropenem on the . ID consulted. 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 Repeat BCx on the are pending. continue vancomycin for now. ID recommending discharge with linezolid for 1 week. LLE cellulitis complicated by LE lymphedema could be source of bacteremia. Chronic conditions: Chronic hypoxic respiratory failure secondary to hypoventilation obesity syndrome in the setting of her super morbid obesity: Continue with her home oxygen requirements. She refuses to wear BiPAP due to PTSD. continue with her home inhalers GERD with history of angiodysplasia/chronic iron deficiency anemia: She had an EGD last month that showed an angiodysplasia that was treated though it was not bleeding. Continue with her PPI and her iron supplementation Anxiety/depression: Continue with her home medications. Stable. Complain of pain over upper abdomen and ribs: Patient states he has been coughing and might have pleuritic pain. Patient on hydrocodone 7.5 mg/325 at home, continued. On PPI. Morbid obesity w BMI of 81. Recommended nutrition consult. Advised not drinking her calories (she a couple 8oz regular Cokes and endorsed drinking juice). Lymphedema: advised fluid restriction 1.5 liters/day. Painful swallowing no obvious pharygitis nor thrush reviewed EGD report from last month with patient and dtr. esophagus was reported as normal. will utilize viscous lidocaine if remains refractory may require additional evaluation with possible re-endoscopy, esophogram, etc. This can be done as outpt. Abdominal pain reportedly after colonoscopy and polyp removal AXR reviewed no obvious perforated viscous. No additional work up at this time. DVT: Lovenox twice daily Told the patient that ultimate decisions regards to her diet this can to be up to her particular when she leaves the hospital. [facility] to help with her overall health. She expresses concerns about which she been told in regards to being told to drink more fluids in the past. Told her that in order to move forward, to help her overall health, I recommend limiting her fluid intake so that she can have fluid taken off. I am concerned the patient looks for reasons not to follow through on recommendations and I am concerned the patient may be looking forward to being sick. No home agency available for the patient. Patient does not want to go to a half-way facility. Plan for patient to go home and family to manage abx. Currently awaiting on insurance approval of abx. DW patient's dtr at bedside. Greater than 55 minutes of which greater than 50% of time was counseling at bedside about the difficulty swallowing, abdominal pain, treatment with antibiotics. Charges/Coding Visit Charges Inpatient E&M: 88905 [facility] Hosp L3
[2023-07-02] MEDS: Ferrous Sulfate 325 MG Tablet PO ×2 (07:49→18:30)
[2023-07-02 08:43] VITALS: BP 117/63; PULSE 100; RESP 16; TEMP 36.5; O2SAT 99
[2023-07-02 09:08] LABS: Vancomycin, Random Level 16.9 ug/mL (0.0-15.0)
--- NOTE | 2023-07-02 09:34 | CASEMGMT ---
Addendum entered by Marci Mejias 07/02/23 16:22: Received notification from [facility] that pt is covered 100%. They will fax over form for cristiane for pt to sign for auth. Provided fax number. Pt to dc tomorrow as med cannot be delivered yet today. They are checking on availability for zoom teaching. JAN VÁZQUEZ into pt room, pt with eyes closed, she is aware of the above and verbalizes understanding. Pt is aware she will need to get labs drawn and picc dressing changed at [facility]. Pt states she will be able to come in for this. Pt denies further needs. Hospitalist updated. Addendum entered by Marci Mejias 07/02/23 14:22: 1110-Received tc back from Rohini at [facility], pt has a policy from [facility] [employer] that is a pharmacy policy in the name of pt legal effective 2013. She is requesting documentation that this has terminated. Rohini will attempt to notify the state that the policy is not effective in attempt for pt to have access to care. JAN VÁZQUEZ med with pt dtr to discuss ( with pt permission) this policy. She called her stepfather at that time and he will look into obtaining a letter that this has been terminated. Pt dtr then began to discuss concerns of pt care. She is agreeable to speaking with Pt advocate. TC to Pt advocate, he is aware and will reach out to her. 1133- Received tc back from [facility] stating that the state had removed the policy. Message sent in careport to [facility] to request the claim be resent to see if this medication can be billed. Will await response from [facility]. 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 Pt dtr states pt mother called [facility] 8x yesterday and has not heard back. Pt aware JAN VÁZQUEZ will continue to work on this. Faxed a cover sheet to [facility] requesting call back regarding pt insurance. TC to [facility], spoke with Noemi, she will give this information to [facility] staff to resolve noting they are tied up this morning. JAN VÁZQUEZ to follow.
[2023-07-02] MEDS: Ertapenem Sod 1 GM in 0.9% Normal Saline (50mL MB+) 50 ML IV (09:58)
[2023-07-02] MEDS: Furosemide 40 MG Tablet PO ×2 (09:59→21:30)
[2023-07-02] MEDS: Mupirocin Ointment 22gm Tube 1 APPLIC TOPICAL (09:59)
[2023-07-02] MEDS: DULoxetine Hcl 20 MG Capsule PO ×2 (09:59→21:30)
[2023-07-02] MEDS: Montelukast 10 MG Tablet PO ×2 (10:00→21:31)
[2023-07-02] MEDS: Pantoprazole Sodium 40 MG Tablet PO (10:00)
[2023-07-02] MEDS: guaiFENesin/D-Methorphan TAB.SR.12H 2 TABLET PO ×2 (10:00→21:31)
--- NOTE | 2023-07-02 10:50 | RAD_ITS ---
STUDY: X-RAY - ABDOMEN/PELVIS REASON FOR EXAM: Female, 47 years old. Abdominal pain TECHNIQUE: AP supine and upright views of the abdomen and pelvis. COMPARISON: None. FINDINGS: Increased markings are seen at the lung bases. This may represent bibasilar atelectasis and/or vascular congestion. There is an abundance of fecal material throughout the colon. There is no demonstrated free abdominal air. The visualized liver, spleen and kidneys are grossly normal in size and morphology. Normal soft tissue structures. Normal visualized osseous structures. RAD/Abd Inc Decub and/or Erect IMPRESSION: Large amount of fecal material is seen in the colon. Electronically Signed: Mika Lockwood MD at 14:41 EDT ,
--- NOTE | 2023-07-02 11:01 | PCM.RX.CS ---
Consult Antibiotic Management Pharmacy has been consulted to manage selected antibiotic: Vancomycin Type of Intervention Type of Consult: Follow-up Suspected Infection Suspected Infection: Bacteremia Prior Doses of Antibiotics Prior Doses of Antibiotics Received/Current Regimen: Most recently on 1000mg iv q8h. Labs Labs: Sodium 136 mmol/L (136-145) 07/01/23 06:07 Potassium 3.5 mmol/L (3.5-5.1) 07/01/23 06:07 Chloride 92 mmol/L (98-107) L 07/01/23 06:07 Carbon Dioxide 42.0 mmol/L (21.0-32.0) H 07/01/23 06:07 Anion Gap 2 (5-15) L 07/01/23 06:07 BUN 15 mg/dL (7-18) 07/01/23 06:07 Creatinine 0.74 mg/dL (0.55-1.02) 07/01/23 06:07 Est GFR (MDRD) Af Amer 109 mL/min (>60) 07/01/23 06:07 Est GFR (MDRD) Non-Af 90 mL/min (>60) 07/01/23 06:07 BUN/Creatinine Ratio 20.4 RATIO (10-20) H 07/01/23 06:07 Glucose 123 mg/dL (74-106) H 07/01/23 06:07 Vancomycin Trough 22.8 ug/mL (5.0-15.0) H 07/02/23 00:27 Random Vancomycin 16.9 ug/mL (0.0-15.0) H 07/02/23 08:25 Microbiology Microbiology: Microbiology 06/30/23 07:43 Blood Culture (Wb) - Left Wrist Blood Culture - Preliminary No growth in 48 hours. 06/30/23 07:35 Blood Culture (Wb) - Left Hand Blood Culture - Preliminary No growth in 48 hours. 06/27/23 16:20 Blood Culture (Wb) - Anticubital Left Blood Culture - Final Coag Negative Staph 06/27/23 16:30 Blood Culture (Wb) - Left Forearm Bacteria Detection (PCR) - Final Coag Negative Staph 06/27/23 16:30 Blood Culture (Wb) - Left Forearm Blood Culture - Preliminary Staphylococcus hominis hominis 06/27/23 17:15 Urine Catheter - Catheter Urine Culture - Final Escherichia coli 06/27/23 16:30 Mucosa - Nose SARS-CoV-2, Influenza & RSV (PCR) - Final Dosing Weight Weight used for dosin kg Estimated Creatinine Clearance Estimated Creatinine Clearance: ~190ml/min Goal Trough Goal Trough: 15-20 mcg/mL Pharmacy Plan for Drug Dosing Pharmacy Plan for Drug Dosing: Trough today at 0027 was elevated at 22.8. Random level this AM at 0825 was in therapeutic range at 16.9. This was ~16 hrs post dose yesterday. Recommend a dose change to 1000mg iv q12h with goal of trough 15-20mcg/ml. New trough ordered for before 4th dose of new dosing change. Pharmacy Service will continue to monitor and adjust dosing as required. Follow-Up Labs Follow-Up Labs: Trough: Vancomycin (4.18.24 @2130)
[2023-07-02] MEDS: Vancomycin IV 1,000 MG/200 ML BAG 200 MG IV ×2 (12:09→20:53)
--- NOTE | 2023-07-02 14:43 | CASEMGMT ---
Social Work Met with pt to discuss any mental health needs and provide mental health provider list. Pt reports having 3-4 contacts for support and states that she does not need or want any mental health services at this time, but was agreeable to taking the mental health provider list. Pt reports GP orders any meds needed.
[2023-07-02 15:05] VITALS: BP 135/74; PULSE 95; RESP 16; TEMP 36.7; O2SAT 96
[2023-07-02] MEDS: 0.9% Normal Saline (250mL Bag) 250 ML 15 ML IV (18:30)
[2023-07-02 20:00] VITALS: BP 145/75; PULSE 100; RESP 18; TEMP 36.4; O2SAT 97
[2023-07-03 02:00] VITALS: PULSE 100; RESP 18
[2023-07-03] MEDS: HYDROcodone Bitartrate/Apap 5/325 Tablet PO ×2 (02:19→10:51)
--- NOTE | 2023-07-03 07:22 | PCM.PN.HOSP ---
Reason for Visit Reason for Visit: Diagnoses Other staphylococcus as the cause of diseases classified elsewhere (06/27/23) Urinary tract infection, site not specified (06/27/23) Bacteremia (06/27/23) Subjective Subjective Still with painful swallowing. Has not received lidocaine. Objective Data Objective Data Vital Signs: Vital Signs Temp Pulse Resp BP Pulse Ox O2 Del Method O2 Flow Rate 36.4 C L 100 18 145/75 H 97 Nasal Cannula 4 07/02/23 20:00 07/03/23 02:00 07/03/23 02:00 07/02/23 20:00 07/02/23 20:00 07/03/23 02:00 07/03/23 02:00 Oxygen Flow Rate (L/min) 4 Oxygen Delivery Method Nasal Cannula Weight: 227.25 kg Body Mass Index (BMI) 80.8 Intake & Output: Intake and Output for Last 24 Hours 07/01/23 07/02/23 07/03/23 23:59 23:59 23:59 Intake Total 2050 / 2550 1460 / 1460 240 / 240 Output Total 3250 / 3850 1200 / 1200 950 / 950 Balance -1200 / -1300 260 / 260 -710 / -710 Lab / Micro Data 07/01/23 06:07 07/01/23 06:07 Labs: Laboratory Results - last 24 hr 07/02/23 08:25: Random Vancomycin 16.9 H Micro: Microbiology 06/30/23 07:43 Blood Culture (Wb) - Left Wrist Blood Culture - Preliminary No growth in 48 hours. 06/30/23 07:35 Blood Culture (Wb) - Left Hand Blood Culture - Preliminary No growth in 48 hours. 06/27/23 16:20 Blood Culture (Wb) - Anticubital Left Blood Culture - Final Coag Negative Staph 06/27/23 16:30 Blood Culture (Wb) - Left Forearm Bacteria Detection (PCR) - Final Coag Negative Staph 06/27/23 16:30 Blood Culture (Wb) - Left Forearm Blood Culture - Preliminary Staphylococcus hominis hominis 06/27/23 17:15 Urine Catheter - Catheter Urine Culture - Final Escherichia coli 06/27/23 16:30 Mucosa - Nose SARS-CoV-2, Influenza & RSV (PCR) - Final Radiography Diagnostic Testing: Radiology Impression Abdomen X-Ray 07/02/23 10:50 IMPRESSION: Large amount of fecal material is seen in the colon. Electronically Signed: Mika Lockwood MD at 14:41 EDT , Physical Exam Const alert and no apparent distress Constitutional Narrative: no respiratory distress. no conversational dyspnea. flat affect. Resp normal respiratory effort and no retractions Cardio regular rate, regular rhythm, S1 normal heart sound and S2 normal heart sound Skin Skin Narrative: Lymphedematous changes in lower extremities. Erythema of the left lower extremity. Has new area of land demarcation but it appears to be unchanged overall since the . Not warm to palpation. Assessment & Plan Assessment/Plan (1) UTI (urinary tract infection): PLAN: Plan UTI UCx with E. coli. Resistant to ampicillin, amp/SB, cefazolin, CTX, cipro. Had been on Ciprofloxacin, since changed to meropenem on the . ID consulted. 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 Repeat BCx on the are negative. continue vancomycin for now. ID recommending discharge with linezolid for 1 week. LLE cellulitis complicated by LE lymphedema could be source of bacteremia. Chronic conditions: Chronic hypoxic respiratory failure secondary to hypoventilation obesity syndrome in the setting of her super morbid obesity: Continue with her home oxygen requirements. She refuses to wear BiPAP due to PTSD. continue with her home inhalers GERD with history of angiodysplasia/chronic iron deficiency anemia: She had an EGD last month that showed an angiodysplasia that was treated though it was not bleeding. Continue with her PPI and her iron supplementation Anxiety/depression: Continue with her home medications. Stable. Complain of pain over upper abdomen and ribs: Patient states he has been coughing and might have pleuritic pain. Patient on hydrocodone 7.5 mg/325 at home, continued. On PPI. Morbid obesity w BMI of 81. Recommended nutrition consult. Advised not drinking her calories (she a couple 8oz regular Cokes and endorsed drinking juice). Lymphedema: advised fluid restriction 1.5 liters/day. Painful swallowing no obvious pharygitis nor thrush reviewed EGD report from last month with patient and dtr. esophagus was reported as normal. will utilize viscous lidocaine if remains refractory may require additional evaluation with possible re-endoscopy, esophagram, etc. This can be done as outpt. Abdominal pain reportedly after colonoscopy and polyp removal AXR reviewed no obvious perforated viscous. No additional work up at this time. DVT: Lovenox twice daily Told the patient that ultimate decisions regards to her diet this can to be up to her particular when she leaves the hospital. Informed patient to return to empowered to make the right decisions to help with her overall health. She expresses concerns about which she been told in regards to being told to drink more fluids in the past. Told her that in order to move forward, to help her overall health, I recommend limiting her fluid intake so that she can have fluid taken off. I am concerned the patient looks for reasons not to follow through on recommendations and I am concerned the patient may be looking forward to being sick. No home agency available for the patient. Patient does not want to go to a nursing home facility. Plan for patient to go home and family to manage abx. Patient to go home with family to administer IV antibiotics.
--- NOTE | 2023-07-03 09:06 | CASEMGMT ---
Late entry for 07/02/23 1630- TC to [facility], spoke with Sangeetha. She states that Marita the nurse from [facility] will be at the hospital on 07/02 to teach pt dtr IV infusion as it is a minibag. She states they will contact pt dtr to set this up. Plan for pt to dc on 07/02.
--- NOTE | 2023-07-03 09:09 | CASEMGMT ---
Addendum entered by Marci Mejias 07/03/23 12:57: 1235- RN CM into pt room, pt and dtr just finished with [facility] teaching of infusion. Spoke with I, Marita and she states the teaching went well. Pt and dtr Veena aware of when lab work and picc dressing change is scheduled for and the location. This was added on the dc instructions. Pt upset with care received and requests to speak to pt advocate. TC to pt advocate and he plans to see pt and dtr. Notified [facility] secretary that pt requests transport home by ambulance. Pt dtr states they may dc here and go to [place] in [place] for care. Addendum entered by Marci Mejias 07/03/23 12:17: Discharge summary sent to [facility] via [facility]. Addendum entered by Marci Mejias 07/03/23 11:40: Sent ID note and labs to [facility] via [facility]. Addendum entered by Marci Mejias 07/03/23 09:52: [facility] back to [facility] at this time. Addendum entered by Marci Mejias 07/03/23 09:16: TC to [facility], pt is set up for 07/08/23 at 2:30pm for lab draw and picc dressing change. Faxed order to [facility]. Original Note: TC to Gianna, no cost for linezolid and no PA.
[2023-07-03 10:39] VITALS: BP 138/76; PULSE 105; RESP 18; TEMP 36.8; O2SAT 100
[2023-07-03] MEDS: Montelukast 10 MG Tablet PO (10:41)
[2023-07-03] MEDS: DULoxetine Hcl 20 MG Capsule PO (10:41)
[2023-07-03] MEDS: Pantoprazole Sodium 40 MG Tablet PO (10:41)
[2023-07-03] MEDS: guaiFENesin/D-Methorphan TAB.SR.12H 2 TABLET PO (10:41)
[2023-07-03] MEDS: Ferrous Sulfate 325 MG Tablet PO (10:42)
[2023-07-03] MEDS: Mupirocin Ointment 22gm Tube 1 APPLIC TOPICAL (10:43)
[2023-07-03] MEDS: Furosemide 40 MG Tablet PO (10:44)
[2023-07-03] MEDS: Vancomycin IV 1,000 MG/200 ML BAG 200 MG IV (10:52)
--- NOTE | 2023-07-03 10:58 | DS.PCM_ITS ---
Providers Date of Admission: 06/27/23 Primary Care Physician: Dr. Mireille Dietz MD Consultations 06/29/23 09:17 Consult: Infectious Disease Routine Consulting Provider: Lloyd Villarreal Reason for Consult: CoNS bactermia, GNR UTI EMERGENT Consult: No MD Notified: Yes Date Notified: 06/29/23 Time Notified: 09:17 Method of Notification: Verbal Reason For Visit: UTI Diagnosis Discharge Diagnosis (1) UTI (urinary tract infection): Status: Acute Code(s): N39.0 - Urinary tract infection, site not specified Plan UTI * UCx with E. coli. Resistant to ampicillin, amp/SB, cefazolin, CTX, cipro. * Had been on Ciprofloxacin, since changed to meropenem on the . * ID consulted. 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 * Repeat BCx on the are negative. * continue vancomycin for now. * ID recommending discharge with linezolid for 1 week. LLE cellulitis * complicated by LE lymphedema * could be source of bacteremia. Chronic conditions: * Chronic hypoxic respiratory failure secondary to hypoventilation obesity syndrome in the setting of her super morbid obesity: Continue with her home oxygen requirements. She refuses to wear BiPAP due to PTSD. continue with her home inhalers * GERD with history of angiodysplasia/chronic iron deficiency anemia: She had an EGD last month that showed an angiodysplasia that was treated though it was not bleeding. Continue with her PPI and her iron supplementation * Anxiety/depression: Continue with her home medications. Stable. * Complain of pain over upper abdomen and ribs: Patient states he has been coughing and might have pleuritic pain. Patient on hydrocodone 7.5 mg/325 at home, continued. On PPI. * Morbid obesity w BMI of 81. Recommended nutrition consult. Advised not drinking her calories (she a couple 8oz regular Cokes and endorsed drinking juice). * Lymphedema: advised fluid restriction 1.5 liters/day. Painful swallowing * no obvious pharygitis nor thrush * reviewed EGD report from last month with patient and dtr. esophagus was reported as normal. * will utilize viscous lidocaine * if remains refractory may require additional evaluation with possible re- endoscopy, esophagram, etc. This can be done as outpt. Abdominal pain * reportedly after colonoscopy and polyp removal * AXR reviewed no obvious perforated viscous. * No additional work up at this time. DVT: Lovenox twice daily Told the patient that ultimate decisions regards to her diet this can to be up to her particular when she leaves the hospital. Informed patient to return to empowered to make the right decisions to help with her overall health. She expresses concerns about which she been told in regards to being told to drink more fluids in the past. Told her that in order to move forward, to help her overall health, I recommend limiting her fluid intake so that she can have fluid taken off. I am concerned the patient looks for reasons not to follow through on recommendations and I am concerned the patient may be looking forward to being sick. No home agency available for the patient. Patient does not want to go to a group home facility. Plan for patient to go home and family to manage abx. Patient to go home with family to administer IV antibiotics. Medications at Discharge Home Medications acetaminophen 650 mg tablet,extended release 1,300 mg PO Q12H PAIN 10/02/20 albuterol sulfate 90 mcg/actuation breath activated powder inhaler 1 inh inhalation Q6H PRN Wheezing 10/02/20 ciclesonide 80 mcg/actuation aerosol inhaler 1 puff inhalation BID SOB 10/02/20 duloxetine 20 mg capsule,delayed release sprinkle 20 mg PO BID DEPRESSION 10/02/20 gabapentin 300 mg capsule 300 mg PO TID muscle spasms 10/02/20 glucosamine 750 [id number] no1 644 mg-C 30 mg-jamie 1 mg tablet (Osteo Bi-Flex Triple Strength) 2 tab PO DAILY SUPPLEMENT 10/02/20 montelukast 10 mg tablet 10 mg PO BID ALLERGIES 10/02/20 mupirocin 2 % topical ointment 1 applic topical DAILY antibiotic 12/19/20 ferrous sulfate 325 mg (65 mg iron) tablet,delayed release 325 mg PO BID supplement #60 tabs 06/01/23 pantoprazole 40 mg tablet,delayed release 40 mg PO DAILY stomach #30 tabs 06/01/23 furosemide 40 mg tablet 40 mg PO BID diuretic 06/27/23 hydrocodone 7.5 mg-acetaminophen 325 mg tablet 1 tab PO 4X/DAY PRN PRN pain 06/27/23 ertapenem 1 gram solution for injection 1 g IV Q24H #7 ea 07/01/23 linezolid 600 mg tablet 600 mg PO BID #14 tabs 07/01/23 lidocaine HCl 2 % mucosal solution 5 ml PO Q3H PRN SORE THROAT #100 mL 07/03/23 Hospital Course Procedures None and PICC line placement Summary of Care Provided Minutes Spent on Discharge: 40 Hospital Course: Patient presents with fever and chills. Patient was found to have a E. coli UTI, bacteremia and left lower extremity cellulitis. Patient was seen by infectious disease who recommended vancomycin for the bacteremia and ertapenem for the urinary tract infection for 7-day course. Patient is been here she has had myriad of symptoms, complaining of abdominal pain related with her colonoscopy where she had a an ascending colon polyp removed. An x-ray was unremarkable for any perforation or free air. Also complained of painful swallowing. Lidocaine was ordered as needed but she did not receive it while she was here. Unclear if she actually asked the nurse for that or not. Complicating her recovery is lack of motivation in regards to overall recovery. Patient seems to have responses to anything that may be thrown at her but ultimately I told her it is ultimately up to her to follow through nursing spe cialist, following a diet cutting back on her fluid intake etc. Patient has not demonstrated any actual desire to actually get better. For instance, I did tell the patient to not drink her calories and made mention of nitric Coke as well as juice. She stated that she does not really drink that other than tea without sugar in it. Subsequent encounters show that she had regular Coke on her tray. Weight / BMI Weight Weight: 227.25 kg Body Mass Index (BMI) 80.8 ABG / Lab / Microbiology Data 07/01/23 06:07 07/01/23 06:07 Microbiology: Microbiology 06/27/23 16:30 Blood Culture (Wb) - Left Forearm Bacteria Detection (PCR) - Final Coag Negative Staph 06/27/23 16:30 Blood Culture (Wb) - Left Forearm Blood Culture - Final Staphylococcus hominis hominis 06/30/23 07:43 Blood Culture (Wb) - Left Wrist Blood Culture - Preliminary No growth in 48 hours. 06/30/23 07:35 Blood Culture (Wb) - Left Hand Blood Culture - Preliminary No growth in 48 hours. 06/27/23 16:20 Blood Culture (Wb) - Anticubital Left Blood Culture - Final Coag Negative Staph 06/27/23 17:15 Urine Catheter - Catheter Urine Culture - Final Escherichia coli 06/27/23 16:30 Mucosa - Nose SARS-CoV-2, Influenza & RSV (PCR) - Final Radiography Diagnostic Testing: Radiology Impression Abdomen X-Ray 07/02/23 10:50 IMPRESSION: Large amount of fecal material is seen in the colon. Electronically Signed: Mika Lockwood MD at 14:41 EDT , D/C Instructions Discharge Diet: 2000 Calorie Control Diet (1.5 L of fluid per day. Do not drink juice or nondiet soft drinks.) Meaningful Use Info Meaningful Use Meaningful Use Diagnoses (Choose all that apply): None applicable Ischemic Stroke Statin Dosing Therapy Reference: STATIN DOSE THERAPY REFERENCE: * Patients > 75 years receive moderate or high dose statin therapy. * Patients 75 years or YOUNGER should receive HIGH intensity statin dose unless contraindicated. You will be required to document reason for non-treatment if statin daily dose does not meet guidelines. HIGH DOSE STATIN THERAPY DAILY Atorvastatin > than or = to 40 mg Rosuvastatin > than or = to 20 mg Amlodipine + Atorvastatin > than or = to 2.5/40 mg Ezetimibe + Simvastatin 10/80 mg Simvastatin 80mg Discharge Plan Admission Admit Date/Time: 06/27/23 18:17 Primary Reason for Your Visit: Bacteremia. UTI. Attending Provider: Flip Vaughan Primary Care Provider: Mireille Dietz Consulting Providers: Sanya Em; Lloyd Villarreal; Anshu Liz Instructions Additional Instructions / Restrictions: You were admitted with bacteremia and UTI. Bacteremia is likely related with your cellulitis. You will be on 2 different antibiotics. Very important you do take those to completion. You also been complaining of painful swallowing. I have ordered lidocaine viscus to help to see if that helps. If that does not seem to work then you may need to see gastroenterology again for possible repeat EGD. As we had mentioned on review that your esophagus on your EGD from month ago was normal. Given your obesity, and lymphedema, I do strongly recommend you make changes to your diet. Advised having a limited caloric intake of 2000 kcal/day also limiting your fluid intake to 1.5 L, roughly 8 cups, of fluid per day and 2 g of sodium per day. Discharge Orders/Prescriptions Prescriptions: New ertapenem 1 gram recon soln 1 g IV Q24H Qty: 7 0RF Rx Instructions: weekly bmp, cbc, and LFT while on iv abx, fax to [phone]. linezolid 600 mg tablet 600 mg PO BID Qty: 14 0RF lidocaine HCl 2 % Solution 5 ml PO Q3H PRN (Reason: SORE THROAT) Qty: 100 0RF Continued duloxetine 20 mg Capsule, Delayed Rel Sprinkle 20 mg PO BID gabapentin 300 mg Capsule 300 mg PO TID montelukast 10 mg Tablet 10 mg PO BID ciclesonide 80 mcg/actuation Hfa Aerosol Inhaler 1 puff INHALATION BID albuterol sulfate 90 mcg/actuation Aerosol Powdr Breath Activated 1 inh INHALATION Q6H PRN (Reason: Wheezing) acetaminophen 650 mg Tablet Extended Release 1,300 mg PO Q12H Osteo Bi-Flex Triple Strength 750 mg-644 mg- 30 mg-1 mg Tablet 2 tab PO DAILY mupirocin 2 % ointment 1 applic TOPICAL DAILY Patient Comments: Apply 1 application to affected area twice daily. pantoprazole 40 mg tablet,delayed release (DR/EC) 40 mg PO DAILY Qty: 30 2RF ferrous sulfate 325 mg (65 mg iron) tablet,delayed release (DR/EC) 325 mg PO BID Qty: 60 2RF furosemide 40 mg tablet 40 mg PO BID hydrocodone-acetaminophen 7.5-325 mg tablet 1 tab PO 4X/DAY PRN PRN (Reason: pain) Discontinued elderberry fruit 200 mg Capsule 200 mg PO DAILY Referrals / Follow Up: Mireille Dietz MD [Primary Care Provider] - Within 2 Weeks Disposition Disposition (needs filled in before D/C Order can be placed): Home, Self Care Charges/Coding Visit Charges Inpatient E&M: 96920 Disch Hosp >30min
[2023-07-03] MEDS: Ertapenem Sod 1 GM in 0.9% Normal Saline (50mL MB+) 50 ML IV (13:30)
[2023-07-03] MEDS: 0.9% Saline Lock 10 ML Syringe IV (14:17)
[2023-07-03 14:25] VITALS: BP 135/76; PULSE 105; RESP 18; TEMP 36.6; O2SAT 96
--- NOTE | 2023-07-04 16:34 | CASEMGMT ---
Received message from pt friend Angely who reports she is pt POA. She expresses concern over pt home situation with mice, roaches, trash, etc. She has concerns over pt doing IV infusion at home. She is aware that pt is her own person and makes her own decisions. She asks for this information to not be told to pt.
== END 2023-07-03 14:47 | disposition home or self-care (01) | DRG 463 ==
LOC: ED 16:06 → MS3 18:41
PROVIDERS: Internal Medicine; Physician Assistant; Admitting Provider Family Medicine; Emergency Provider Emergency Medicine; PCP Internal Medicine
DX: N39.0 Urinary tract infection, site not specified (principal); R78.81 Bacteremia; J96.11 Chronic respiratory failure with hypoxia; E66.2 Morbid (severe) obesity with alveolar hypoventilation; Z68.45 Body mass index [BMI] 70 or greater, adult; L03.116 Cellulitis of left lower limb; Z99.81 Dependence on supplemental oxygen; J44.9 Chronic obstructive pulmonary disease, unspecified; D50.9 Iron deficiency anemia, unspecified; F32.A Depression, unspecified; I89.0 Lymphedema, not elsewhere classified; K21.9 Gastro-esophageal reflux disease without esophagitis; F41.9 Anxiety disorder, unspecified; B96.89 Other specified bacterial agents as the cause of diseases classified elsewhere; F43.10 Post-traumatic stress disorder, unspecified; B95.7 Other staphylococcus as the cause of diseases classified elsewhere; B96.20 Unspecified Escherichia coli [E. coli] as the cause of diseases classified elsewhere; Z45.2 Encounter for adjustment and management of vascular access device; R13.10 Dysphagia, unspecified
CPT/HCPCS: 36415; 36569; 51702; 71046; 74019; 76770; 80048; 80053; 80202; 81001; 83605; 84484; 85025; 87040; 87077; 87086; 87088; 87149; 87186; 87631; 93005; 94640; 97116; 97162; 97166; 97530; 97535; 97802; 99285; J2185; J7040; J7050; A4216; J0744; J2405

== ENCOUNTER 2023-07-08 14:41 | Outpatient (CLI) | payer MEDICAID, SELFPAY ==
[2023-07-08 15:13] LABS: Hematocrit 33.6 % (37-47); Hemoglobin 8.9 g/dL (12.0-15.0); Mean Corp Hgb Conc 26.5 g/dL (32-36); Mean Corpuscular Hgb 21.5 pg (27.0-32.0); Mean Corpuscular Volume 81.2 fL (81-99); Platelet Count 302 K/mm3 (150-450); RBC Distribution Width CV 19.5 % (11.6-14.6); RBC Distribution Width SD 56.1 fl (35.1-43.9); Red Blood Count 4.14 M/mm3 (4.2-5.4); White Blood Count 12.3 K/mm3 (4.4-11.0)
[2023-07-08 15:39] LABS: AST(SGOT) 19 U/L (15-37); Alanine Aminotransfer ALT/SGPT 19 U/L (13-56); Albumin, Serum 2.8 g/dL (3.2-5.0); Alkaline Phosphatase 102 U/L (45-117); Anion Gap 1 (5-15); BUN 9 mg/dL (7-18); BUN/Creat Ratio 10.2 RATIO (10-20); Bilirubin, Direct 0.11 mg/dL (0.00-0.30); Calcium,Total 8.8 mg/dL (8.5-10.1); Chloride 99 mmol/L (98-107); Creatinine, Serum 0.88 mg/dL (0.55-1.02); EST Glomerular Filtration Rate 73 mL/min (>60); Est Glom Filt Rate - Afr Amer 88 mL/min (>60); Globulin 5.2 g/dL (2.2-4.2); Glucose 117 mg/dL (74-106); Sodium Level 139 mmol/L (136-145)
[2023-07-08 23:08] LABS: Xtra Tube EP Lab EXTRA TUBE
== END 2023-07-08 14:42 | disposition home or self-care (01) ==
LOC: MEDOUTP 14:44
PROVIDERS: PCP Internal Medicine; Referring Provider Internal Medicine Infectious Disease; Visit Provider Internal Medicine Infectious Disease
DX: N39.0 Urinary tract infection, site not specified (principal); R78.81 Bacteremia
CPT/HCPCS: 36592; 80048; 80076; 85027; A4216

== ENCOUNTER 2024-03-01 01:14 | Emergency (ER) | payer MEDICAID, SELFPAY ==
[2024-03-01 01:15] VITALS: BP 93/76; PULSE 114; RESP 18; TEMP 36.7; O2SAT 96; BMI 82.1
--- NOTE | 2024-03-01 01:45 | RAD_ITS ---
INDICATION: pain EXAMINATION/TECHNIQUE: X-RAY - LEFT XR Knee 3 Views 3 VIEWS COMPARISON: No relevant prior comparison study available FINDINGS: SOFT TISSUES: Diffuse soft tissue swelling. No radiopaque foreign body. BONES/JOINTS: No acute fracture or subluxation.. Normal alignment. Small marginal osteophytes in all 3 compartments. No joint effusion. No sclerotic or destructive changes observed. RAD/Knee 3 Views IMPRESSION: No fracture or malalignment. Diffuse soft tissue swelling. Mild degenerative changes. Electronically Signed: Avila Garcia MD at 2:42 EST ,
--- NOTE | 2024-03-01 01:45 | RAD_ITS ---
INDICATION: pain EXAMINATION/TECHNIQUE: X-RAY - LEFT XR Shoulder Min 2 Views 3 views, 4 images COMPARISON: No relevant prior comparison study available FINDINGS: SOFT TISSUES: No soft tissue swelling or gas. No radiopaque foreign body. BONES/JOINTS: No acute fracture or subluxation.. Normal alignment. Preservation of the joint space.. No sclerotic or destructive changes observed. The visualized ribs are intact. RAD/Shoulder min 2 Views IMPRESSION: No fracture or malalignment. Electronically Signed: Avila Garcia MD at 2:40 EST ,
[2024-03-01] MEDS: oxyCODONE 5 MG Tablet 10 MG PO (02:14)
[2024-03-01] MEDS: Gabapentin 300 MG Capsule 600 MG PO (02:14)
--- NOTE | 2024-03-01 02:20 | EDS_ITS ---
HPI History of Present Illness Chief Complaint: Fall Informant: patient and EMS Narrative Narrative: Patient is a 48-year-old female with a past medical history of morbid obesity GERD and Carole-Danlos syndrome. She states roughly 1 to 2 hours prior to arrival she was walking when she lost her balance and tried to steady herself by putting her hand on a tray table. She states the tray table gave way and she fell landing on her left side. She denies striking her head or any loss of consciousness. She denies any history of bleeding disorder or blood thinner use. She states that this happened in the last 1 to 2 hours and therefore she was not on the ground for a prolonged period of time. She states she had pain in her left knee and left shoulder and has concern for fracture or dislocation and therefore called EMS and she was brought in for evaluation [facility] Medical History History of gastroesophageal reflux (GERD) Chronic anemia Lymphedema Acute on chronic respiratory failure with hypoxia and hypercapnia Lymphedema Morbid obesity Shortness of breath Anemia Kidney disease On home oxygen therapy Morbid obesity Acute respiratory failure with hypoxia Hearing loss, left Hearing loss, right Cancer Non-smoker DVT (deep venous thrombosis) BMI 70 and over, adult Chronic pain Rheumatoid arthritis GERD (gastroesophageal reflux disease) Irregular heart beat Migraines Kidney stones Crohn disease Splenomegaly Renal atrophy Obesity Lymphedema Lumbar spondylosis Carole-Danlos syndrome Asthma T-cell lymphoma Home Medications ?Medication ?Instructions ?Recorded ?Last Taken ?Type acetaminophen 650 mg 1,300 mg PO Q12H PAIN 10/02/20 12/19/20 History tablet,extended release albuterol sulfate 90 mcg/actuation 1 inh inhalation Q6H PRN Wheezing 10/02/20 12/19/20 History breath activated powder inhaler ciclesonide 80 mcg/actuation 1 puff inhalation BID SOB 10/02/20 12/19/20 History aerosol inhaler duloxetine 20 mg capsule,delayed 20 mg PO BID DEPRESSION 10/02/20 12/19/20 History release sprinkle gabapentin 300 mg capsule 300 mg PO TID muscle spasms 10/02/20 12/18/20 History glucosamine 750 [id number] 2 tab PO DAILY SUPPLEMENT 10/02/20 12/19/20 History no1 644 mg-C 30 mg-jamie 1 mg tablet (Osteo Bi-Flex Triple Strength) montelukast 10 mg tablet 10 mg PO BID ALLERGIES 10/02/20 12/19/20 History mupirocin 2 % topical ointment 1 applic topical DAILY antibiotic 12/19/20 12/19/20 History ferrous sulfate 325 mg (65 mg 325 mg PO BID supplement #60 tabs 06/01/23 Unknown Rx iron) tablet,delayed release pantoprazole 40 mg tablet,delayed 40 mg PO DAILY stomach #30 tabs 06/01/23 Unknown Rx release furosemide 40 mg tablet 40 mg PO BID diuretic 06/27/23 Unknown History hydrocodone 7.5 mg-acetaminophen 1 tab PO 4X/DAY PRN PRN pain 06/27/23 Unknown History 325 mg tablet ertapenem 1 gram solution for 1 g IV Q24H #7 ea 07/01/23 Unknown Rx injection linezolid 600 mg tablet 600 mg PO BID #14 tabs 07/01/23 Unknown Rx lidocaine HCl 2 % mucosal solution 5 ml PO Q3H PRN SORE THROAT #100 mL 07/03/23 Unknown Rx oxycodone 5 mg tablet 5 mg PO Q6H PRN pain 3 days #12 03/01/24 Unknown Rx tabs Allergy/AdvReac Type Severity Reaction Status Date / Time Nitrate Analogues Allergy Unknown throat/nose Verified 06/27/23 15:44 swelling adhesive tape Allergy Rash Verified 06/27/23 15:44 aspirin Allergy Angioedema Verified 06/27/23 15:44 benzonatate Allergy Shortness Verified 06/27/23 15:44 of breath cephalexin Allergy Rash Verified 06/27/23 15:44 coconut oil Allergy throat Verified 06/27/23 15:44 swells copper Allergy skin peels Verified 06/27/23 15:44 Environmental Allergies: Allergy Rash Verified 06/27/23 15:44 Uncoded Food Allergies: Uncoded Allergy throat Verified 06/30/23 15:40 swelling formaldehyde Allergy Anaphylaxis Verified 06/27/23 15:44 gold Au 198 Allergy Rash Verified 06/27/23 15:44 Iodine and Iodide Containing Allergy Anaphylaxis Verified 06/27/23 15:44 Produc latex Allergy Upset Verified 06/27/23 15:44 Stomach mold Allergy Anaphylaxis Verified 06/27/23 15:44 nickel Allergy Rash Verified 06/27/23 15:44 nitrofurantoin Allergy Anaphylaxis Verified 06/27/23 15:44 palm oil Allergy Hives Verified 06/27/23 15:44 Penicillins Allergy Rash Verified 06/27/23 15:44 soy Allergy Diarrhea Verified 06/27/23 15:44 Sulfa (Sulfonamide Allergy Rash Verified 06/27/23 15:44 Antibiotics) topiramate Allergy goes Verified 06/27/23 15:44 crazy aspartame AdvReac kidneyfailu Verified 06/27/23 15:44 re morphine AdvReac confusion Verified 06/27/23 15:44 Family History Father Heart disease Mother Diabetes Surgical History Hx of pelvic surgery Previous section History of partial hysterectomy Social History household members: children Smoking Status: Never smoker alcohol intake: current alcohol intake frequency: holidays/special occasions only substance use type: does not use ROS ROS ED Constitutional Constitutional ED: Denies chills or fever(s) Eyes Eyes: Denies blurry vision or change in vision ENT ENT ED: Denies sore throat Cardiovascular Cardiovascular: Reports other Details: Negative syncope ; Denies chest pain, palpitations or racing heartbeat Respiratory/Chest Respiratory/Chest: Denies cough or dyspnea Gastrointestinal Gastrointestinal: Denies abdominal pain, diarrhea, nausea or vomiting Genitourinary Genitourinary ED: Denies dysuria Musculoskeletal Musculoskeletal: Reports other Details: Positive left knee and left shoulder pain ; Denies back pain or neck pain Integumentary Denies rash Neurologic Neurologic: Denies headache(s) Hematologic/Lymphatic Hematologic/Lymphatic: Denies easy bleeding or easy bruising EXAM Physical Exam Const Vital Signs: 03/01/24 01:15 03/01/24 01:23 Temperature 98.0 F Temperature Source Oral Pulse Rate 114 H Respiratory Rate 18 Respiratory Effort Normal Blood Pressure 93/76 Blood Pressure Mean 81 Pulse Ox 96 Oxygen Delivery Method Room Air Positive well nourished, well developed and obese General Appearance ED: well developed Nutritional Appearance: obese HEENT HEENT Narrative: Normocephalic atraumatic No signs of depressed or basilar skull fracture Eyes PERRL and EOMs intact bilaterally General Eye ED: Negative for scleral icterus Neck supple Neck Narrative: No bony deformity or step-off of the cervical spine no midline tenderness to palpation Chest Wall palpation of chest normal Resp normal respiratory effort and clear to auscultation bilaterally Cardio regular rate and regular rhythm GI normal to inspection, nondistended, normoactive bowel sounds, non-tender, non- distended and no masses Auscultation: normoactive bowel sounds Palpation: soft Back/Spine Back/Spine Narrative: No bony deformity or step-off of the thoracic or lumbar spine no midline tenderness to palpation Extremity Extremity Narrative: Left upper extremity is neurovascularly intact; AIN/PIN are intact and normal. There is diffuse pain on palpation of the left shoulder greatest along the scapular region without obvious bony deformity or joint effusion. Negative sulcus sign. Active and passive range of motion is decreased secondary to pain. Patient does express pain with internal/external rotation and straight arm ra ising Pelvis is stable there is no shortening or external rotation of either lower extremity. There is mild soft tissue swelling to the anterior left knee without obvious bony deformity or joint effusion. Patellar tendon is intact and the ligaments are stable. Neuro oriented x3, CN's II-XII intact bilaterally and no sensory deficits noted Sensorium / Orientation: alert Psych mental status grossly normal Skin Skin Narrative: No areas of ecchymosis noted MDM MDM MDM Narrative Medical decision making narrative: Patient arrived to the ER with stable vitals. She reported a mechanical fall and therefore I felt no need for cardiac or syncope workup. She denies striking her head or any history of bleeding disorder or blood thinner use and therefore my concern for a traumatic skull fracture or subarachnoid subdural hemorrhage is low and do not feel the need for head CT. The patient reporting pain in the left shoulder and knee there is concern for fracture versus dislocation versus contusion versus ligamentous or tendon. X-rays were obtained which revealed no acute bony abnormality. As patient does have pain with internal and external rotation as well as straight arm reason there is concern for potential rotator cuff injury of the left shoulder. However as she is neurovascularly intact this does not need to be worked up as an inpatient and can be followed up by orthopedics as an outpatient. Plan of care was discussed with the patient she is agreeable to it and therefore we discharged at this time with symptomatic care History & Record Review Discussion w/independent historian: EMS personnel and Patient Radiography Diagnostic Testing: Clinical Impression(s) from Imaging Studies Knee X-Ray 03/01/24 01:45 IMPRESSION: No fracture or malalignment. Diffuse soft tissue swelling. Mild degenerative changes. Electronically Signed: Avila Garcia MD at 2:42 EST , Shoulder X-Ray 03/01/24 01:45 IMPRESSION: No fracture or malalignment. Electronically Signed: Avila Garcia MD at 2:40 EST , Left knee x-ray as interpreted by the emergency medicine physician reveals mild soft tissue swelling without acute fracture or dislocation or joint effusion Left shoulder x-ray as interpreted by the emergency medicine physician reveals n o acute fracture dislocation or joint effusion Discharge Plan Triage Chief Complaint: Fall ED Provider: Ti Martinez Dx/Rx/DC Orders Clinical Impression: Contusion of left shoulder, Contusion of left knee, Accidental fall, Injury of left rotator cuff, Morbid obesity, Carole-Danlos syndrome Instructions: Bone Contusion, Rotator Cuff Tear Prescriptions: New oxycodone 5 mg tablet 5 mg PO Q6H PRN (Reason: pain) 3 Days Qty: 12 0RF No Action duloxetine 20 mg Capsule, Delayed Rel Sprinkle 20 mg PO BID gabapentin 300 mg Capsule 300 mg PO TID montelukast 10 mg Tablet 10 mg PO BID ciclesonide 80 mcg/actuation Hfa Aerosol Inhaler 1 puff INHALATION BID albuterol sulfate 90 mcg/actuation Aerosol Powdr Breath Activated 1 inh INHALATION Q6H PRN (Reason: Wheezing) acetaminophen 650 mg Tablet Extended Release 1,300 mg PO Q12H Osteo Bi-Flex Triple Strength 750 mg-644 mg- 30 mg-1 mg Tablet 2 tab PO DAILY mupirocin 2 % ointment 1 applic TOPICAL DAILY Patient Comments: Apply 1 application to affected area twice daily. pantoprazole 40 mg tablet,delayed release (DR/EC) 40 mg PO DAILY Qty: 30 2RF ferrous sulfate 325 mg (65 mg iron) tablet,delayed release (DR/EC) 325 mg PO BID Qty: 60 2RF furosemide 40 mg tablet 40 mg PO BID hydrocodone-acetaminophen 7.5-325 mg tablet 1 tab PO 4X/DAY PRN PRN (Reason: pain) ertapenem 1 gram recon soln 1 g IV Q24H Qty: 7 0RF Rx Instructions: weekly bmp, cbc, and LFT while on iv abx, fax to [phone]. linezolid 600 mg tablet 600 mg PO BID Qty: 14 0RF lidocaine HCl 2 % Solution 5 ml PO Q3H PRN (Reason: SORE THROAT) Qty: 100 0RF Primary Care Provider: Mireille Dietz Referrals: Mireille Dietz MD [Primary Care Provider] - Activity Restrictions/Additional Instructions: Please follow-up with your family doctor for repeat evaluation and discuss potential referral to orthopedics if symptoms persist. Return to the ER should you have any further concerns Print Language: Slovenian Disposition Disposition: Home, Self Care
[2024-03-01 03:07] VITALS: BP 129/95; PULSE 113; RESP 16; TEMP 36.7; O2SAT 93
--- NOTE | 2024-03-01 03:19 | ED.RN ---
CALLED [facility] TO SET UP TRANSPORT HOME, DISPATCH STATED ETA IS 1930.
== END 2024-03-01 09:05 | disposition home or self-care (01) ==
PROVIDERS: Emergency Provider Emergency Medicine; PCP Internal Medicine; Visit Provider Emergency Medicine
DX: S40.012A Contusion of left shoulder, initial encounter (principal); E66.01 Morbid (severe) obesity due to excess calories; S46.002A Unspecified injury of muscle(s) and tendon(s) of the rotator cuff of left shoulder, initial encounter; S80.02XA Contusion of left knee, initial encounter; Q79.60 Ehlers-Danlos syndrome, unspecified; W18.39XA Other fall on same level, initial encounter; K21.9 Gastro-esophageal reflux disease without esophagitis; Z79.899 Other long term (current) drug therapy; Z90.710 Acquired absence of both cervix and uterus
CPT/HCPCS: 73030; 73562; 99283

== ENCOUNTER 2024-04-12 10:40 | Inpatient (IN) | payer MEDICAID, SELFPAY ==
[2024-04-12] VITALS (15 sets, daily range): BP systolic 115–180; BP diastolic 58–103; PULSE 101–120; RESP 16–24; TEMP 36.1–36.9; O2SAT 92–98; BMI 88.9; BMI 80.8
--- NOTE | 2024-04-12 11:20 | EKG12_ITS ---
Test Reason : SOB/CP Blood Pressure : */* mmHG Vent. Rate : 115 BPM Atrial Rate : 115 BPM P-R Int : 154 ms QRS Dur : 74 ms QT Int : 290 ms P-R-T Axes : 48 51 12 degrees QTcB Int : 401 ms Sinus tachycardia Nonspecific T wave abnormality Abnormal ECG Confirmed by ALVIN OSBORNE, KAREN ([id number]), medical editor JOSE DAVIS ([id number]) on 04/14/2024 6:21:52 AM Referred By: Manolo Frank Confirmed By: KAREN ESQUIVEL MD
--- NOTE | 2024-04-12 11:22 | ED.VIS.DYS ---
HPI History of Present Illness Chief Complaint: Shortness of Breath Informant: patient Narrative Narrative: Patient presents for dyspnea, chest discomfort, abdominal discomfort, productive cough that has all been going on for 1 to 2 months, battling bronchitis and pneumonia. Vomiting for several days, she can swallow okay but food makes her stomach hurt and then she seems to dry heave quite a bit. She is having bowel movements. Also having diffuse abdominal soreness from all the coughing for the last month or 2. Chronic edema both of her legs with soreness there which is worse bilaterally and no better. She states she has asthma and COPD. She was on prednisone and finished it maybe 2 weeks ago, she states yesterday she just finished her third course of doxycycline. When she called in for follow-up because her symptoms are persistent and she is still coughing up quite a bit of sputum, she states she was sent to the ER for stronger antibiotics than they can prescribe. [facility] Medical History History of gastroesophageal reflux (GERD) Chronic anemia Lymphedema Acute on chronic respiratory failure with hypoxia and hypercapnia Lymphedema Morbid obesity Shortness of breath Anemia Kidney disease On home oxygen therapy Morbid obesity Acute respiratory failure with hypoxia Hearing loss, left Hearing loss, right Cancer Non-smoker DVT (deep venous thrombosis) BMI 70 and over, adult Chronic pain Rheumatoid arthritis GERD (gastroesophageal reflux disease) Irregular heart beat Migraines Kidney stones Crohn disease Splenomegaly Renal atrophy Obesity Lymphedema Lumbar spondylosis Carole-Danlos syndrome Asthma T-cell lymphoma Home Medications ?Medication ?Instructions ?Recorded ?Last Taken ?Type acetaminophen 650 mg 1,300 mg PO Q12H PAIN 10/02/20 12/19/20 History tablet,extended release albuterol sulfate 90 mcg/actuation 1 inh inhalation Q6H PRN Wheezing 10/02/20 12/19/20 History breath activated powder inhaler ciclesonide 80 mcg/actuation 1 puff inhalation BID SOB 10/02/20 12/19/20 History aerosol inhaler duloxetine 20 mg capsule,delayed 20 mg PO BID DEPRESSION 10/02/20 12/19/20 History release sprinkle gabapentin 300 mg capsule 300 mg PO TID muscle spasms 10/02/20 12/18/20 History glucosamine 750 ss-[id number]-nox 2 tab PO DAILY SUPPLEMENT 10/02/20 12/19/20 History no1 644 mg-C 30 mg-jamie 1 mg tablet (Osteo Bi-Flex Triple Strength) montelukast 10 mg tablet 10 mg PO BID ALLERGIES 10/02/20 12/19/20 History mupirocin 2 % topical ointment 1 applic topical DAILY antibiotic 12/19/20 12/19/20 History ferrous sulfate 325 mg (65 mg 325 mg PO BID supplement #60 tabs 06/01/23 Unknown Rx iron) tablet,delayed release pantoprazole 40 mg tablet,delayed 40 mg PO DAILY stomach #30 tabs 06/01/23 Unknown Rx release furosemide 40 mg tablet 40 mg PO BID diuretic 06/27/23 Unknown History hydrocodone 7.5 mg-acetaminophen 1 tab PO 4X/DAY PRN PRN pain 06/27/23 Unknown History 325 mg tablet ertapenem 1 gram solution for 1 g IV Q24H #7 ea 07/01/23 Unknown Rx injection linezolid 600 mg tablet 600 mg PO BID #14 tabs 07/01/23 Unknown Rx lidocaine HCl 2 % mucosal solution 5 ml PO Q3H PRN SORE THROAT #100 mL 07/03/23 Unknown Rx oxycodone 5 mg tablet 5 mg PO Q6H PRN pain 3 days #12 03/01/24 Unknown Rx tabs Allergy/AdvReac Type Severity Reaction Status Date / Time Nitrate Analogues Allergy Unknown throat/nose Verified 04/12/24 10:46 swelling adhesive tape Allergy Rash Verified 04/12/24 10:46 aspirin Allergy Angioedema Verified 04/12/24 10:46 benzonatate Allergy Shortness Verified 04/12/24 10:46 of breath cephalexin Allergy Rash Verified 04/12/24 10:46 coconut oil Allergy throat Verified 04/12/24 10:46 swells copper Allergy skin peels Verified 04/12/24 10:46 Environmental Allergies: Allergy Rash Verified 04/12/24 10:46 Uncoded Food Allergies: Uncoded Allergy throat Verified 04/12/24 10:46 swelling formaldehyde Allergy Anaphylaxis Verified 04/12/24 10:46 gold Au 198 Allergy Rash Verified 04/12/24 10:46 Iodine and Iodide Containing Allergy Anaphylaxis Verified 04/12/24 10:46 Produc latex Allergy Upset Verified 04/12/24 10:46 Stomach mold Allergy Anaphylaxis Verified 04/12/24 10:46 nickel Allergy Rash Verified 04/12/24 10:46 nitrofurantoin Allergy Anaphylaxis Verified 04/12/24 10:46 palm oil Allergy Hives Verified 04/12/24 10:46 Penicillins Allergy Rash Verified 04/12/24 10:46 soy Allergy Diarrhea Verified 04/12/24 10:46 Sulfa (Sulfonamide Allergy Rash Verified 04/12/24 10:46 Antibiotics) topiramate Allergy goes Verified 04/12/24 10:46 crazy aspartame AdvReac kidneyfailu Verified 04/12/24 10:46 re morphine AdvReac confusion Verified 04/12/24 10:46 Family History Father Heart disease Mother Diabetes Surgical History Hx of pelvic surgery Previous section History of partial hysterectomy Social History household members: children Smoking Status: Never smoker alcohol intake: current alcohol intake frequency: holidays/special occasions only substance use type: does not use ROS ROS ED Constitutional Constitutional ED: Reports body ache(s), chills, fatigue, fever(s) and subjective Eyes Eyes: Denies change in vision or diplopia ENT ENT ED: Reports nasal congestion and rhinorrhea; Denies ear pain or sore throat Cardiovascular Cardiovascular: Reports chest pain, leg edema and orthopnea; Denies palpitations Respiratory/Chest Respiratory/Chest: Reports cough, dyspnea, orthopnea and sputum Gastrointestinal Gastrointestinal: Reports abdominal pain, nausea and vomiting; Denies diarrhea Genitourinary Genitourinary ED: Denies dysuria or hematuria Musculoskeletal Musculoskeletal: Denies myalgias or neck pain Integumentary Denies abscess or rash Neurologic Neurologic: Denies headache(s), paresthesias or weakness Endocrine Endocrinology: Denies polydipsia or polyuria EXAM Physical Exam Const Vital Signs: 04/12/24 10:41 04/12/24 10:46 04/12/24 10:50 Temperature 98.4 F 98.4 F Temperature Source Oral Oral Pulse Rate 119 H 119 H Respiratory Rate 18 19 H Respiratory Effort Short of Breath Respiratory Depth Shallow Respiratory Pattern Blood Pressure 180/103 H 180/103 H Blood Pressure Mean 128 128 Pulse Ox 96 98 Oxygen Delivery Method Nasal Cannula Nasal Cannula Oxygen Flow Rate (L/min) 4 4 04/12/24 11:20 04/12/24 11:36 04/12/24 12:00 Temperature 98.2 F Temperature Source Oral Pulse Rate 115 H 112 H Respiratory Rate 20 H 22 H Respiratory Effort Respiratory Depth Respiratory Pattern Normal Blood Pressure 138/58 H Blood Pressure Mean 84 Pulse Ox 95 95 Oxygen Delivery Method Nasal Cannula Nasal Cannula Oxygen Flow Rate (L/min) 04/12/24 12:41 04/12/24 14:00 04/12/24 15:10 Temperature Temperature Source Pulse Rate 101 H 117 H 118 H Respiratory Rate 22 H 20 H 16 Respiratory Effort Respiratory Depth Respiratory Pattern Blood Pressure 148/77 H 139/85 H Blood Pressure Mean 100 103 Pulse Ox 94 95 Oxygen Delivery Method Nasal Cannula Nasal Cannula Oxygen Flow Rate (L/min) 04/12/24 15:58 04/12/24 16:36 Temperature 98.2 F Temperature Source Pulse Rate 112 H Respiratory Rate 22 H 24 H Respiratory Effort Respiratory Depth Respiratory Pattern Blood Pressure 115/77 143/77 H Blood Pressure Mean 89 99 Pulse Ox 95 94 Oxygen Delivery Method Nasal Cannula Oxygen Flow Rate (L/min) Positive well nourished and well developed Constitutional Narrative: Morbidly obese General Appearance ED: well developed and NAD HEENT Reports moist mucous membranes normocephalic and atraumatic Throat: Negative for posterior oropharynx abnormal Eyes PERRL and EOMs intact bilaterally Neck no lymphadenopathy, supple and no meningeal signs Resp normal respiratory effort and clear to auscultation bilaterally Resp Narrative: Diffusely symmetrically diminished, limited by obesity. Speaking full sentences, no respiratory distress or stridor. Cardio Rate: regular rate Rhythm: regular rhythm GI non-tender and non-distended Auscultation: normoactive bowel sounds Palpation: soft Back/Spine no CVA tenderness General Back: other FROM Extremity General Extremety ED: Yes edema; Negative for pulses abnormal or tenderness General Extremity: edema bilateral lower extremity Details: severe (Symmetric bilaterally to the thighs, there is erythema symmetrically both lower legs, it is more dependent above the ankles that is most); Negative for pulses abnormal Neuro oriented x3, CN's II-XII intact bilaterally and no sensory deficits noted Sensorium / Orientation: alert Motor Exam: strength 5/5 throughout Psych mental status grossly normal Skin no rashes or lesions noted and no wounds Lesions: no lesions Rashes: no rashes MDM MDM MDM Narrative Medical decision making narrative: No recent labs or chest x-rays on this patient available to view at this facility/EMR. Considering cardiopulmonary etiologies including but not exclusive of infection, heart failure, COPD exacerbation, pulmonary embolus, workup obtained and given a breathing treatment. Chest x-ray 1 view on my interpretation shows no acute infiltrates, chronic abnormalities are noted and stable. Her hemoglobin is 7.0 which may be why she is dyspneic, although she is chronically low this is a little bit lower than usual. She also has a leukocytosis, and I did a D-dimer screening her for pulmonary embolus it is abnormal, but she has anaphylaxis to contrast so she will require emergency steroid treatment/preparation prior to obtaining the study. She states that in the past she has been pretreated, it kept her from having full anaphylaxis, she still had some itching, and after receiving some more Benadryl after the scan, she then was okay and agrees to undergo the study again. She does not appear to have renal failure. She denies any symptoms of GI bleeding. Additionally, her BNP came back in the single digits, ruling out acute decompensated congestive heart failure which was also in the differential. Will patient was not able to fit in the CT gantry in order to evaluate for pulmonary embolus. The sales service technician states that the motor on the table stopped moving the table because of her weight and despite 10 of them helping, they were not able to get her into the gantry in order to get scanned. Therefore I will not even be able to do a plain CT if I wanted want to evaluate for an occult infiltrate. Patient continues to be dyspneic, now feeling like she has more of an asthma/COPD exacerbation. We did give her the full 125 mg Solu-Medrol. She has been getting more breathing treatments and still dyspneic. She has a history of a DVT in the past, but no longer is anticoagulated. She also has limited mobility due to her obesity and anasarca, and is feeling a lot weaker given her anemia. She has a history of iron deficiency anemia according to her, she is microcytic consistent with this, she states she is post to get iron infusions but has not yet gotten those, and has had no symptoms of GI bleeding. Given all that is going on I think reasonable to admit her. Discussed with hospitalist, he agrees it sounds more like reactive airway, we are going to hold off on heparin for now until an echo can be obtained, given that with her legs will be very difficult to evaluate for DVT. Lab Data Attestation: I reviewed the patient's lab results. Labs: Laboratory Results - last 24 hr 04/12/24 12:36 WBC 16.5 H RBC 3.65 L Hgb 7.0 L Hct 26.5 L MCV 72.6 L MCH 19.2 L MCHC 26.4 L RDW Std Deviation 51.8 H RDW Coeff of Fanny 19.9 H Plt Count 331 MPV 9.4 Immature Gran % (Auto) 0.700 Neut % (Auto) 92.4 H Lymph % (Auto) 3.7 L [place] % (Auto) 2.9 Eos % (Auto) 0.1 Baso % (Auto) 0.2 Absolute Neuts (auto) 15.2 H Absolute Lymphs (auto) 0.61 L Nucleated RBC % 0.2 D-Dimer Quant (PE/DVT) 0.97 H* Sodium 135 L Potassium 3.8 Chloride 88 L Carbon Dioxide 42.0 H Anion Gap 5 BUN 7 Creatinine 0.86 Estim Creat Clear Calc 167.55 Est GFR (MDRD) Af Amer 91 Est GFR (MDRD) Non-Af 75 BUN/Creatinine Ratio 8.1 L Glucose 242 H Calcium 9.2 Total Bilirubin 0.40 AST 26 ALT 11 L Alkaline Phosphatase 93 Troponin I High Sens 4 B-Natriuretic Peptide 5.4 Total Protein 7.8 Albumin 2.6 L Globulin 5.2 H Albumin/Globulin Ratio 0.5 L Radiography Diagnostic Testing: Clinical Impression(s) from Imaging Studies Chest X-Ray 04/12/24 11:45 IMPRESSION: Stable chest with no acute or emergent finding. Electronically Signed: Darius Greene MD at 12:08 EST Reading Location ID and State: [facility] / [place] , Service support , Rhythm Strip Rhythm Strip: Sinus Tach Rate: 115 Ectopy: None EKG Initial EKG: Attestation: I personally reviewed and interpreted this EKG as follows: Interpretation: No Acute Injury Pattern, Sinus Tachycardia and Non-Specific ST Changes Management Discussion w/another healthcare provider: Hospitalist Discharge Plan Dx/Rx/DC Orders Clinical Impression: Acute asthma exacerbation, Acute lower respiratory tract infection, Anasarca, Anemia, Acute respiratory insufficiency, Body mass index (BMI) greater than 70 in adult Disposition Disposition: Acute Care [facility]
[2024-04-12] MEDS: Ipratropium/Albuterol Sulfate 3 ML AMPUL.NEB INHALATION ×2 (11:33→20:53)
--- NOTE | 2024-04-12 11:45 | RAD_ITS ---
STUDY: X-RAY CHEST REASON FOR EXAM: Female, 48 years old. Cough and shortness of breath. TECHNIQUE: Single frontal view of the chest. COMPARISON: June 27, 2023 FINDINGS: Stable cardiomegaly, low volume inspiration, aortic tortuosity and diffuse interstitial pattern. No acute or emergent finding. RAD/Chest 1 View (Portable) IMPRESSION: Stable chest with no acute or emergent finding. Electronically Signed: Darius Greene MD at 12:08 EST ,
[2024-04-12 12:44] LABS: Absolute Lymphocyte Count 0.61 X10^3/uL (0.83-4.51); Absolute Neutrophil Count 15.2 X10^3/uL (2.0-7.7); Basophil# 0.03 X10^3/uL; Basophil% 0.2 % (0-1); Eosinophil# 0.02 X10^3/uL; Eosinophils% 0.1 % (0-5); Hematocrit 26.5 % (37-47); Lymphocyte # 0.61 X10^3/ul (0.83-4.51); Lymphocyte % 3.7 % (19-41); Mean Corp Hgb Conc 26.4 g/dL (32-36); Mean Corpuscular Hgb 19.2 pg (27.0-32.0); Mean Corpuscular Volume 72.6 fL (81-99); Mean Platelet Vol. 9.4 fl (6.2-12.0); Monocyte# 0.48 X10^3/uL; Monocyte% 2.9 % (0-10); NRBC Flagged by Analyzer 0.2 % (0-5); Neutrophil # 15.24 X10^3/uL (2.7-7.7); Neutrophil % 92.4 % (47-70); Platelet Count 331 K/mm3 (150-450); RBC Distribution Width CV 19.9 % (11.6-14.6); RBC Distribution Width SD 51.8 fl (35.1-43.9); Red Blood Count 3.65 M/mm3 (4.2-5.4); White Blood Count 16.5 K/mm3 (4.4-11.0)
[2024-04-12 12:56] LABS: D-Dimer Quantitative (DVT/PE) 0.97 FEU/ug/m (0.27-0.49)
[2024-04-12 13:00] LABS: ALB/GLOB Ratio 0.5 RATIO (0.9-2.4); AST(SGOT) 26 U/L (15-37); Alanine Aminotransfer ALT/SGPT 11 U/L (13-56); Albumin, Serum 2.6 g/dL (3.2-5.0); Alkaline Phosphatase 93 U/L (45-117); Anion Gap 5 (5-15); BUN 7 mg/dL (7-18); BUN/Creat Ratio 8.1 RATIO (10-20); Calcium,Total 9.2 mg/dL (8.5-10.1); Chloride 88 mmol/L (98-107); Creatinine, Serum 0.86 mg/dL (0.55-1.02); EST Glomerular Filtration Rate 75 mL/min (>60); Est Glom Filt Rate - Afr Amer 91 mL/min (>60); Estimated Creatinine Clearance 167.55 ml/min; Globulin 5.2 g/dL (2.2-4.2); Glucose 242 mg/dL (74-106); Potassium 3.8 mmol/L (3.5-5.1); Protein, Total 7.8 g/dL (6.4-8.2); Sodium Level 135 mmol/L (136-145); Troponin-I HS 4 pg/mL (3.0-54.0)
[2024-04-12 13:04] LABS: BNP,B-Type NATRIURETIC PEPTIDE 5.4 pg/mL (0-100)
--- NOTE | 2024-04-12 14:24 | ED.RN ---
awaiting dr. moran to decide if we are doing pre meds for CT.
[2024-04-12] MEDS: Albuterol 2.5 MG/3 ML VIAL.NEB. INHALATION ×2 (15:08)
[2024-04-12] MEDS: DiphenhydrAMINE 50 MG/ML Syringe IV (15:10)
[2024-04-12] MEDS: MethylPREDNISolone 125 MG/2 ML Vial IV (15:10)
[2024-04-12] MEDS: fentaNYL 100 MCG/2 ML Ampul 50 MCG IV (16:22)
[2024-04-12] MEDS: LORazepam 2 MG/ML Syringe 0.5 MG IV (16:23)
--- NOTE | 2024-04-12 16:38 | HP.PCM.HOS_ITS ---
[facility] - General General Date of Admission: 04/12/24 Date of Service: 04/12/24 Chief Complaint: Shortness of breath, cough and chest discomfort HPI Narrative HELGA JENSEN, is a 48 F who presented to [facility] ED on 04/12/2024 with worsening shortness of breath, cough and chest discomfort. History is significant for super morbid obesity with BMI of 80, chronic hypoxic and hypercapnic respiratory failure, chronic iron deficiency anemia, GERD with history of angiodysplasia, severe lower extremity lymphedema and history of lower extremity cellulitis with bacteremia. She reports having a persistent cough and battling bronchitis and pneumonia for the past 1 to 2 months. She has been through 2 rounds of antibiotics and steroids without much improvement. She feels like her legs are becoming more swollen than her normal. Because of these things, she came in for further evaluation. In the ED she was mildly hypertensive and had sinus tachycardia to the 110s. She was breathing comfortably on her home 4 L nasal cannula at rest with saturations in the mid 90s. She was afebrile and noninfectious appearing. Labs notable for WBC count 16, hemoglobin 7.0, MCV 72, bicarb 42. D-dimer was mildly elevated at 0.97. Chest x-ray was unremarkable. CTA chest was attempted but patient unfortunately could not fit through the CT scanner so this was aborted. Given these concerns including acute on chronic anemia, hospitalist was contacted for admission. I saw the patient at bedside in the ED. Patient was sitting up comfortably in bed, breathing comfortably on 4 L of cannula and conversing normally, was in no acute distress. Her medical education specialist was on the phone during our encounter to help with providing history. Patient's main concerns currently are increased swelling in her legs, persistent cough with chest discomfort due to coughing, and shortness of breath with laying flat. She has known lymphedema and has apparently never been able to get in to the lymphedema clinic. She has used compression devices in the past but her legs currently are too big for these. She reports some tenderness in her legs bilaterally. On my exam, findings appear consistent with chronic venous stasis with lymphedema, low concern for cellulitis. No other concerning findings on exam. No other acute concerns from patient. [facility] Medical History (Updated 04/12/24 @ 19:51 by Noa Shaikh) History of gastroesophageal reflux (GERD) Chronic anemia Lymphedema Acute on chronic respiratory failure with hypoxia and hypercapnia Lymphedema Morbid obesity Shortness of breath Anemia Kidney disease On home oxygen therapy Morbid obesity Acute respiratory failure with hypoxia Hearing loss, left Hearing loss, right Cancer Non-smoker DVT (deep venous thrombosis) BMI 70 and over, adult Chronic pain Rheumatoid arthritis GERD (gastroesophageal reflux disease) Irregular heart beat Migraines Kidney stones Crohn disease Splenomegaly Renal atrophy Obesity Lymphedema Lumbar spondylosis Carole-Danlos syndrome Asthma T-cell lymphoma Home Medications ?Medication ?Instructions ?Recorded ?Last Taken ?Type acetaminophen 650 mg 1,300 mg PO Q12H PAIN 10/02/20 04/11/24 History tablet,extended release albuterol sulfate 90 mcg/actuation 1 inh inhalation Q6H PRN Wheezing 10/02/20 04/11/24 History breath activated powder inhaler ciclesonide 80 mcg/actuation 1 puff inhalation BID SOB 10/02/20 04/11/24 History aerosol inhaler gabapentin 300 mg capsule 300 mg PO TID muscle spasms 10/02/20 12/18/20 History montelukast 10 mg tablet 10 mg PO BID ALLERGIES 10/02/20 04/11/24 History mupirocin 2 % topical ointment 1 applic topical DAILY antibiotic 12/19/20 04/11/24 History ferrous sulfate 325 mg (65 mg 325 mg PO BID supplement #60 tabs 06/01/23 Unknown Rx iron) tablet,delayed release pantoprazole 40 mg tablet,delayed 40 mg PO DAILY stomach #30 tabs 06/01/23 04/11/24 Rx release furosemide 40 mg tablet 40 mg PO BID diuretic 06/27/23 Unknown History ertapenem 1 gram solution for 1 g IV Q24H #7 ea 07/01/23 Unknown Rx injection albuterol sulfate 2.5 mg/3 mL 2.5 mg inhalation Q4H PRN 04/12/24 04/11/24 History (0.083 %) solution for nebulization shortness of breath or wheezing ascorbic acid (vitamin C) 500 mg 500 mg PO BID 04/12/24 04/11/24 History tablet cetirizine 10 mg tablet 10 mg PO DAILY 04/12/24 04/11/24 History chlorhexidine gluconate 4 % 1 applic topical DAILY 04/12/24 04/11/24 History topical liquid dicyclomine 10 mg capsule 10 mg PO TID PRN abdominal pain 04/12/24 04/11/24 History duloxetine 30 mg capsule,delayed 30 mg PO BID 04/12/24 04/11/24 History release ergocalciferol (vitamin D2) 1,250 1,250 mcg PO FR 04/12/24 04/09/24 History mcg (50,000 unit) capsule (Vitamin D2) gabapentin 100 mg capsule 100 mg PO TID 04/12/24 Unknown History guaifenesin 1,200 mg tablet, 1,200 mg PO BID 04/12/24 04/11/24 History extended release 12 hr (Mucus Relief ER) ipratropium 0.5 mg-albuterol 3 mg 3 ml inhalation Q4H PRN shortness 04/12/24 04/11/24 History (2.5 mg base)/3 mL nebulization of breath soln megestrol 40 mg tablet 80 mg PO TID 04/12/24 04/11/24 History metformin 500 mg tablet 500 mg PO BID 04/12/24 04/11/24 History ondansetron 4 mg disintegrating 4 mg PO Q6H PRN nausea and vomiting 04/12/24 Unknown History tablet Allergy/AdvReac Type Severity Reaction Status Date / Time Nitrate Analogues Allergy Unknown throat/nose Verified 04/12/24 10:46 swelling adhesive tape Allergy Rash Verified 04/12/24 10:46 aspirin Allergy Angioedema Verified 04/12/24 10:46 benzonatate Allergy Shortness Verified 04/12/24 10:46 of breath cephalexin Allergy Rash Verified 04/12/24 10:46 coconut oil Allergy throat Verified 04/12/24 10:46 swells copper Allergy skin peels Verified 04/12/24 10:46 Environmental Allergies: Allergy Rash Verified 04/12/24 10:46 Uncoded Food Allergies: Uncoded Allergy throat Verified 04/12/24 10:46 swelling formaldehyde Allergy Anaphylaxis Verified 04/12/24 10:46 gold Au 198 Allergy Rash Verified 04/12/24 10:46 Iodine and Iodide Containing Allergy Anaphylaxis Verified 04/12/24 10:46 Produc latex Allergy Upset Verified 04/12/24 10:46 Stomach mold Allergy Anaphylaxis Verified 04/12/24 10:46 nickel Allergy Rash Verified 04/12/24 10:46 nitrofurantoin Allergy Anaphylaxis Verified 04/12/24 10:46 palm oil Allergy Hives Verified 04/12/24 10:46 Penicillins Allergy Rash Verified 04/12/24 10:46 soy Allergy Diarrhea Verified 04/12/24 10:46 Sulfa (Sulfonamide Allergy Rash Verified 04/12/24 10:46 Antibiotics) topiramate Allergy goes Verified 04/12/24 10:46 crazy aspartame AdvReac kidneyfailu Verified 04/12/24 10:46 re morphine AdvReac confusion Verified 04/12/24 10:46 Family History Father Heart disease Mother Diabetes Surgical History Hx of pelvic surgery Previous section History of partial hysterectomy Social History household members: children Smoking Status: Never smoker alcohol intake: current alcohol intake frequency: holidays/special occasions only substance use type: does not use ROS Constitutional Constitutional: Denies chills, fatigue, fever(s) or weakness Cardiovascular Cardiovascular: Reports orthopnea; Denies chest pain, palpitations or rapid heart rate Respiratory/Chest Respiratory/Chest: Reports cough; Denies productive cough, shortness of breath at rest or wheezing Gastrointestinal Gastrointestinal: Denies abdominal pain Musculoskeletal Musculoskeletal: Denies arthralgias or myalgias Vital Signs Vital Signs Vital Signs: 04/12/24 10:41 04/12/24 10:46 04/12/24 10:50 Temperature 98.4 F 98.4 F Temperature Source Oral Oral Pulse Rate 119 H 119 H Respiratory Rate 18 19 H Respiratory Effort Short of Breath Respiratory Depth Shallow Respiratory Pattern Blood Pressure 180/103 H 180/103 H Blood Pressure Mean 128 128 Pulse Ox 96 98 Oxygen Delivery Method Nasal Cannula Nasal Cannula Oxygen Flow Rate (L/min) 4 4 04/12/24 11:20 04/12/24 11:36 04/12/24 12:00 Temperature 98.2 F Temperature Source Oral Pulse Rate 115 H 112 H Respiratory Rate 20 H 22 H Respiratory Effort Respiratory Depth Respiratory Pattern Normal Blood Pressure 138/58 H Blood Pressure Mean 84 Pulse Ox 95 95 Oxygen Delivery Method Nasal Cannula Nasal Cannula Oxygen Flow Rate (L/min) 04/12/24 12:41 04/12/24 14:00 04/12/24 15:10 Temperature Temperature Source Pulse Rate 101 H 117 H 118 H Respiratory Rate 22 H 20 H 16 Respiratory Effort Respiratory Depth Respiratory Pattern Blood Pressure 148/77 H 139/85 H Blood Pressure Mean 100 103 Pulse Ox 94 95 Oxygen Delivery Method Nasal Cannula Nasal Cannula Oxygen Flow Rate (L/min) 04/12/24 15:58 04/12/24 16:36 Temperature 98.2 F Temperature Source Pulse Rate 112 H Respiratory Rate 22 H 24 H Respiratory Effort Respiratory Depth Respiratory Pattern Blood Pressure 115/77 143/77 H Blood Pressure Mean 89 99 Pulse Ox 95 94 Oxygen Delivery Method Nasal Cannula Oxygen Flow Rate (L/min) Weight Weight: 242.6 kg Body Mass Index (BMI) 88.9 Physical Exam Const alert, oriented x3 and no apparent distress Constitutional Narrative: Middle-age female, super morbid obesity, otherwise sitting up comfortably in bed, conversing normally, in no acute distress. General Appearance: cooperative and comfortable HEENT normocephalic, head/scalp atraumatic, hearing grossly normal bilaterally, nasal mucous membranes and turbinates normal and moist oral mucous membranes Eyes PERRL, EOMs intact bilaterally and conjunctivae normal Neck full ROM Chest inspection of chest normal Resp normal respiratory effort and no use of accessory muscles Resp Narrative: Breathing comfortably on 4 L nasal cannula at rest. Decreased breath sounds bilaterally suspect due to body habitus, no wheezing or crackles noted. Cardio no murmurs and peripheral pulses 2+ throughout Cardio Narrative: Tachycardic, regular rhythm. GI normal to inspection, nondistended, normoactive bowel sounds, soft to palpation, non-tender and non-distended Back/Spine normal ROM Extremity Extremity Narrative: Significant lower extremity lymphedema with chronic venous stasis changes noted. Mild to moderate tenderness to palpation bilaterally. Neuro moves all extremities and no focal motor deficits Speech: speech normal Psych mental status grossly normal Results Lab / Micro Data 04/12/24 12:36 04/12/24 12:36 Labs: Laboratory Results - last 24 hr 04/12/24 12:36: WBC 16.5 H, RBC 3.65 L, Hgb 7.0 L, Hct 26.5 L, MCV 72.6 L, MCH 19.2 L, MCHC 26.4 L, RDW Std Deviation 51.8 H, RDW Coeff of Fanny 19.9 H, Plt Count 331, MPV 9.4, Immature Gran % (Auto) 0.700, Neut % (Auto) 92.4 H, Lymph % (Auto) 3.7 L, Bladen % (Auto) 2.9, Eos % (Auto) 0.1, Baso % (Auto) 0.2, Absolute Neuts (auto) 15.2 H, Absolute Lymphs (auto) 0.61 L, Nucleated RBC % 0.2, D-Dimer Quant (PE/DVT) 0.97 H*, Sodium 135 L, Potassium 3.8, Chloride 88 L, Carbon Dioxide 42.0 H, Anion Gap 5, BUN 7, Creatinine 0.86, Estim Creat Clear Calc 167.55, Est GFR (MDRD) Af Amer 91, Est GFR (MDRD) Non-Af 75, BUN/Creatinine Ratio 8.1 L, Glucose 242 H, Calcium 9.2, Total Bilirubin 0.40, AST 26, ALT 11 L, Alkaline Phosphatase 93, Troponin I High Sens 4, B-Natriuretic Peptide 5.4, Total Protein 7.8, Albumin 2.6 L, Globulin 5.2 H, Albumin/Globulin Ratio 0.5 L Micro: Microbiology 04/12/24 11:33 Mucosa - Nose SARS-CoV-2, Influenza & RSV (PCR) - Final Rhythm Strip Rhythm Strip: Sinus Tach Rate: 115 Ectopy: None Imaging Radiology Impression Chest X-Ray 04/12/24 11:45 IMPRESSION: Stable chest with no acute or emergent finding. Electronically Signed: Darius Greene MD at 12:08 EST Reading Location ID and State: [address] [place] [address] , Service support , Assessment & Plan Assessment/Plan (1) Anemia: (2) Acute respiratory insufficiency: PLAN: Plan Patient is a 48-year-old female who presented [facility] ED on 04/12/2024 with worsening shortness of breath, cough and chest discomfort. 1. Mild COPD exacerbation, chronic hypoxic and hypercapnic respiratory failure ? Admit under inpatient status to PCU. Patient with chronic respiratory failure secondary to obesity hypoventilation syndrome in setting of super morbid obesity. Suspect patient is close to baseline currently, may have mild COPD exacerbation. Mild leukocytosis likely due to recent steroid course. Cannot rule out PE and patient is at risk for this given immobility at baseline. Chest x-ray unremarkable. Unable to complete CTA chest as patient could not fit through CT scanner. Echo and lower extremity duplex ultrasound ordered. Low concern for pneumonia, will hold on antibiotics. Will treat with p.o. prednisone and DuoNebs as needed for now. 2. Mild acute on chronic iron deficiency anemia ? Hemoglobin 7.0 on admit, baseline around 8. Severe iron deficiency anemia noted on labs on admit. Will give 2 doses of IV iron on 04/12 and 04/13. Follow- up a.m. CBC, can consider transfusing for hemoglobin less than 7. No active signs of bleeding noted. 3. Super morbid obesity ? BMI 80 on admit. 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 Provided counseling and education regarding need for weight loss during my encounter with her. 4. Chronic lower extremity lymphedema ? Patient reported worsening lower extremity edema on admit blood findings appear most consistent with chronic lymphedema with venous stasis changes. No areas concerning for cellulitis. Recommended patient establish with lymphedema clinic on discharge. Chronic medical conditions: ? Depression: Continue home duloxetine. ? Type 2 diabetes mellitus: Treat with sliding scale insulin with meals while inpatient. ? Neuropathy: Continue home gabapentin. ? GERD: Continue home PPI. DVT prophylaxis: Lovenox twice daily CODE STATUS: Full code, verified Expected disposition: TBD Total clinical time spent by myself addressing the patient's medical issues, reviewing all the data, and collaborating with patient's care team: 75 minutes. Charges/Coding Visit Charges Inpatient E&M: 87605 Init Hosp L3
--- NOTE | 2024-04-12 16:40 | ECHOCS_ITS ---
Reason For Study: Dyspnea/SOB Procedure This was a 2D Doppler, Color Flow transthoracic echocardiogram. Contrast injection was performed. The study was technically difficult. Exam performed portable in patient room. Left Ventricle Normal LV size. The estimated ejection fraction is 70 %. No evidence for diastolic dysfunction. No regional wall motion abnormalities noted. Right Ventricle Normal RV size. Normal systolic function. Atria Normal left atrium. Normal right atrium. Echodensity in the RA likely prominent eustachian valve. No doppler evidence for ASD. Mitral Valve There is no mitral valve stenosis. Trivial mitral valve insufficiency. Tricuspid Valve There is no tricuspid stenosis. Unable to estimate RV systolic pressure due to inadequate jet, pulmonary artery pressure probably normal. Aortic Valve Trisinus/trileaflet aortic valve. There is no aortic stenosis. No aortic valve insufficiency. Pulmonic Valve There is no pulmonic valvular stenosis. No pulmonic valve insufficiency. Great Vessels Normal aortic root. Pericardium/Pleural No pericardial effusion. Medication Diluted definity 2.5ml given slow IV push to enhance endocardial definition. MMode/2D Measurements & Calculations LVIDd: 4.9 cm IVSd: 0.90 cm Ao root diam: 2.9 cm LVIDs: 3.2 cm LVPWd: 0.81 cm RVDd: 3.5 cm FS: 35.3 % LAV(MOD-bp): 67.0 ml LA A4 area: 23.2 cm2 LA dimension(2D): 4.1 cm LAV(MOD-bp) Indexed: 21.7 ml/m2 LAV(MOD-sp2): 47.7 ml LAV(MOD-sp4): 72.0 ml RA A4 area: 20.5 cm2 Time Measurements MV dec time: 0.25 sec Doppler Measurements & Calculations MV E max narciso: 106.8 cm/sec Lat Peak E' Narciso: 8.9 cm/sec Med Peak E' Narciso: 10.8 cm/sec MV A max narciso: 116.9 cm/sec E/E' lat: 12.0 E/E' med: 9.9 MV E/A: 0.91 MV V2 max: 178.9 cm/sec MV dec slope: 423.2 cm/sec2 Ao V2 max: 193.2 cm/sec MV max P.8 mmHg Ao max P.9 mmHg MV V2 mean: 124.2 cm/sec Ao V2 mean: 134.3 cm/sec MV mean P.7 mmHg Ao mean P.9 mmHg MV V2 VTI: 38.3 cm Ao V2 VTI: 33.9 cm LV V1 max: 125.3 cm/sec PA V2 max: 125.1 cm/sec LV V1 max P.3 mmHg ECHO/Echo Complete W/ Contrast Interpretation Summary The estimated ejection fraction is 70 %. No evidence for diastolic dysfunction. Trivial mitral valve insufficiency. Ordering Physician: Mosteller, Kin Referring Physician: Mireille Dietz Performed By: Nithya Mak, PILAR, RVT
[2024-04-12 17:29] LABS: Ferritin 23 ng/mL (8-252); Iron 21 ug/dL (50-170); Iron Binding Capacity,Total 358 ug/dL (250-450); PERCENT IRON SATURATION 5.9 % (15.0-55.0)
--- NOTE | 2024-04-12 17:52 | CM.ED ---
Care Management Face to Face with patient for initial transition planning/care coordination assessment in the ED.? 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 Patient alert and oriented. Patient willing to participate in assessment and is able to answer all questions appropriately.? Care providers, pharmacy, and demographics verified. Admitting Diagnosis: Acute respiratory insufficiency Other diagnosis history: ?kidney disease, cancer, crohns, Carole-Danlos syndrome PCP: Mirela Specialists: [facility] pulmonology Preferred Pharmacy: [facility] Insurance: Medicaid Prescription Benefit:?Medicaid Living Will/HPOA: ?states she has a LW and HPOA completed LNOK: daughter Living Arrangements: Lives in a first-floor apartment, has a ramp at entrance.? States the shower is in the basement, she is unable to access, so she uses sink to wash self.? Transportation: Uses [employer]: stairlift, manual and power chair, lift chair, rollator, pulse ox, stethoscope HHC: States she has an aide with her 7 days a week, aide service is through [place].? ?SNF/Rehab: previously been to [facility] Community Resources: ?[facility] Behavioral Health History: reports to PTSD and anxiety.? denies medication for mental health Patient goals: Patient wishes to discharge home. Disposition Plan: admission to acute; RN CM/SW to follow for discharge planning needs that may arise. Aggie Salas, PROPERTY ASSISTANT, ARMY MANAGER
--- NOTE | 2024-04-12 19:40 | VDLE_ITS ---
Reason For Study: BLE Swelling RIGHT LEFT GSV is normal. GSV is normal. CFV is compressible, spontaneous, phasic, CFV is compressible, spontaneous, phasic, competent and demonstrates normal competent, and demonstrates normal augmentation. augmentation. FV is compressible, spontaneous, phasic, Prox /Mid FV is compressible, spontaneous, competent and demonstrates normal phasic, competent and demonstrates normal augmentation. augmentation. POP V is compressible, spontaneous, and Unable to visualize distal FV phasic. POP V is compressible, spontaneous, phasic, T/P Trunk is compressible. competent and demonstrates normal PTV is compressible. augmentation. Unable to visualize Alexandre V. T/P Trunk is compressible. Procedure PTV is compressible. This is a venous duplex using B-mode, color Unable to visualize Alexandre V. flow and spectral Doppler. Exam performed portable in patient room. The study was technically difficult due to edema and body habitus. Limited views were obtained. A preliminary report was called and/or faxed to Evangelina LONG RN. VL/Venous Duplex US - Akhil Extrem Interpretation Summary Deep veins of the bilateral lower extremities are patent and compressible segme ntally. There is no evidence of bilateral lower extremity deep vein thrombosis. The bilateral great saphenous veins appear patent and compressible segmentally. Limited due to body habitus. Ordering Physician: Kin Cueva Referring Physician: Manolo Frank Performed By: Gavin Prather RVT
[2024-04-12] MEDS: Enoxaparin 40 MG/0.4 ML Syringe SC (21:40)
[2024-04-12] MEDS: Gabapentin 300 MG Capsule PO (21:40)
[2024-04-12] MEDS: DULoxetine Hcl 30 MG Capsule PO (21:40)
[2024-04-12] MEDS: Acetaminophen 325 MG Tablet 650 MG PO (21:41)
[2024-04-13] VITALS (10 sets, daily range): BP systolic 140–161; BP diastolic 70–78; PULSE 100–121; RESP 18–20; TEMP 36.3–36.9; O2SAT 93–96
[2024-04-13] MEDS: traMADol 50 MG Tablet PO (00:27)
[2024-04-13] MEDS: Ipratropium/Albuterol Sulfate 3 ML AMPUL.NEB INHALATION ×4 (02:00→19:06)
[2024-04-13] MEDS: Gabapentin 300 MG Capsule PO ×3 (03:41→20:55)
[2024-04-13] MEDS: Budesonide Respules 0.5 MG/2 ML AMPUL.NEB. INHALATION ×2 (07:16→19:06)
[2024-04-13 08:03] LABS: Absolute Lymphocyte Count 0.62 X10^3/uL (0.83-4.51); Basophil# 0.02 X10^3/uL; Basophil% 0.1 % (0-1); Eosinophil# 0.01 X10^3/uL; Eosinophils% 0.1 % (0-5); Hemoglobin 7.1 g/dL (12.0-15.0); Lymphocyte # 0.62 X10^3/ul (0.83-4.51); Lymphocyte % 4.6 % (19-41); Mean Corp Hgb Conc 26.3 g/dL (32-36); Mean Corpuscular Hgb 19.2 pg (27.0-32.0); Monocyte# 0.56 X10^3/uL; Monocyte% 4.2 % (0-10); NRBC Flagged by Analyzer 0.6 % (0-5); Neutrophil # 11.95 X10^3/uL (2.7-7.7); Neutrophil % 89.3 % (47-70); POSITIVE MORPHOLOGY YES; Platelet Count 388 K/mm3 (150-450); RBC Distribution Width CV 20.2 % (11.6-14.6); RBC Distribution Width SD 52.5 fl (35.1-43.9); White Blood Count 13.4 K/mm3 (4.4-11.0)
[2024-04-13 08:19] LABS: Differential Indicated SCAN CRITERIA MET
[2024-04-13 09:13] LABS: Anion Gap 9 (5-15); BUN 10 mg/dL (7-18); BUN/Creat Ratio 11.2 RATIO (10-20); Calcium,Total 9.5 mg/dL (8.5-10.1); Chloride 89 mmol/L (98-107); Creatinine, Serum 0.89 mg/dL (0.55-1.02); EST Glomerular Filtration Rate 72 mL/min (>60); Est Glom Filt Rate - Afr Amer 87 mL/min (>60); Glucose 358 mg/dL (74-106); Potassium 3.8 mmol/L (3.5-5.1); Sodium Level 135 mmol/L (136-145)
[2024-04-13] MEDS: Montelukast 10 MG Tablet PO (09:39)
[2024-04-13] MEDS: predniSONE 20 MG Tablet 40 MG PO (09:39)
[2024-04-13] MEDS: Pantoprazole Sodium 40 MG Tablet PO (09:40)
[2024-04-13] MEDS: DULoxetine Hcl 30 MG Capsule PO ×2 (09:40→20:56)
[2024-04-13] MEDS: Furosemide 40 MG Tablet PO (09:40)
[2024-04-13] MEDS: Ferrous Sulfate 325 MG Tablet PO (09:40)
[2024-04-13] MEDS: Enoxaparin 40 MG/0.4 ML Syringe SC ×2 (09:46→20:56)
[2024-04-13 09:51] LABS: Polychromasia 1+
[2024-04-13 09:52] LABS: Platelet Estimate A (ADEQ); Platelet Morphology GIAN
[2024-04-13] MEDS: 0.9% Saline Lock 10 ML Syringe IV ×2 (12:37→13:15)
[2024-04-13] MEDS: Furosemide 500 MG in Empty Viaflex 50 mL 1 EACH CONT INF (12:38)
--- NOTE | 2024-04-13 13:58 | CASEMGMT ---
SW met with patient as she triggered the [facility] assessment for transportation assistance. SW introduced self and role at [facility]. Patient confirmed transportation is an issue. She needs a vehicle that can transport her and her wheelchair. [employer] help get her to her medical appointments. Patient needs assistance with non medical appointments. SW provided patient with the transportation resources SW has, however patient is already utilizing what is available in this area. Marleny Cedeño KEY ACCOUNT MANAGER YONAS
--- NOTE | 2024-04-13 14:53 | PCM.PN.HOSP ---
Reason for Visit Reason for Visit: Diagnoses Anemia, unspecified (04/12/24) Other abnormalities of breathing (04/12/24) Subjective Subjective Patient was seen and examined today, she is currently on 4 L of oxygen. Patient states she was instructed to come into the hospital for possible IV antibiotic administration, I do not feel the patient needs IV antibiotics, patient does have noticeable anasarca and I believe that she needs diuresed. Patient states she does not want to go to his extended care facility for short-term rehab services. She is having a hard time doing her ADLs at home. Objective Data Objective Data Vital Signs: Vital Signs Temp Pulse Resp BP Pulse Ox O2 Del Method O2 Flow Rate 98.4 F 111 H 20 H 145/74 H 96 Nasal Cannula 4 04/13/24 09:51 04/13/24 13:35 04/13/24 13:35 04/13/24 09:51 04/13/24 09:51 04/13/24 10:00 04/13/24 10:00 Oxygen Flow Rate (L/min) 4 Oxygen Delivery Method Nasal Cannula Weight: 227.2 kg Body Mass Index (BMI) 80.8 Intake & Output: Intake and Output for Last 24 Hours 04/11/24 04/12/24 04/13/24 23:59 23:59 23:59 Intake Total 400 / 400 Output Total 2600 / 2600 Balance -2200 / -2200 Lab / Micro Data 04/13/24 07:16 04/13/24 07:16 Labs: Laboratory Results - last 24 hr 04/12/24 12:36: Iron 21 L, TIBC 358, Iron Saturation 5.9 L, Ferritin 23 04/12/24 16:31: Blood Type A POSITIVE, Antibody Screen NEGATIVE 04/13/24 07:16: WBC 13.4 H, RBC 3.70 L, Hgb 7.1 L, Hct 27.0 L, MCV 73.0 L, MCH 19.2 L, MCHC 26.3 L, RDW Std Deviation 52.5 H, RDW Coeff of Fanny 20.2 H, Plt Count 388, MPV 10.0, Immature Gran % (Auto) 1.700 H, Neut % (Auto) 89.3 H, Lymph % (Auto) 4.6 L, [place] % (Auto) 4.2, Eos % (Auto) 0.1, Baso % (Auto) 0.1, Absolute Neuts (auto) 12.0 H, Absolute Lymphs (auto) 0.62 L, Nucleated RBC % 0.6, Platelet Estimate A, Plt Morphology Comment SAA, Polychromasia 1+, Sodium 135 L, Potassium 3.8, Chloride 89 L, Carbon Dioxide 37.0 H, Anion Gap 9, BUN 10, Creatinine 0.89, Estim Creat Clear Calc 156.00, Est GFR (MDRD) Af Amer 87, Est GFR (MDRD) Non-Af 72, BUN/Creatinine Ratio 11.2, Glucose 358 H, Calcium 9.5 Micro: Microbiology 04/12/24 11:33 Mucosa - Nose SARS-CoV-2, Influenza & RSV (PCR) - Final Radiography Diagnostic Testing: Radiology Impression Echocardiogram 04/12/24 16:40 Interpretation Summary The estimated ejection fraction is 70 %. No evidence for diastolic dysfunction. Trivial mitral valve insufficiency. Ordering Physician: Kin Cueva Referring Physician: Mireille Dietz Performed By: Nithya Mak, PILAR, RVT Rhythm Strip Rhythm Strip: Sinus Tach Rate: 115 Ectopy: None Physical Exam Const alert, oriented x3 and no apparent distress Constitutional Narrative: Patient has class III obesity General Appearance: cooperative, well kempt and well developed Orientation / Consciousness: awake, oriented to person, oriented to place and oriented to time HEENT normocephalic, head/scalp atraumatic and moist oral mucous membranes Eyes PERRL, EOMs intact bilaterally and conjunctivae normal Neck supple, no JVD, thyroid normal and no carotid bruits General: trachea midline Resp normal respiratory effort, no retractions, no use of accessory muscles and clear to auscultation bilaterally Auscultation: Negative for rales, rhonchi or wheezes Cardio regular rate, regular rhythm, S1 normal heart sound, S2 normal heart sound, no murmurs, no rub and no gallops GI normal to inspection, nondistended, normoactive bowel sounds, soft to palpation, non-tender and non-distended Extremity Extremity Narrative: Patient has lymphedematous changes over both lower legs along with generalized edema over both lower legs. Skin no rashes or lesions noted General Skin Exam: no breakdown Neuro oriented x3, CN's II-XII intact bilaterally, moves all extremities, no focal motor deficits and no sensory deficits noted Sensorium / Orientation: awake and alert Speech: speech normal Psych affect normal Assessment & Plan Assessment/Plan (1) Anasarca: PLAN: Plan 1. Anasarca-patient will be placed on a Lasix drip, a Aj catheter will be placed due to the patient's immobility #2 chronic hypoxic respiratory failure-patient's oxygen requirement at the present time is 4 L which is close to her oxygen requirement at home. I do not believe she has an exacerbation of COPD/asthma at this time #3 acute debility secondary to anasarca and class III obesity-patient will be seen by PT and OT, again she does not want to go to an extended care facility for short-term rehab services. #4 chronic iron deficiency anemia-patient will receive Venofer infusions, CBC will be rechecked tomorrow #5 chronic asthma-patient will remain on aerosol treatments Acute asthma exacerbation was ruled out Total clinical time spent by myself addressing the patient's medical issues, reviewing all of her data, and collaborating with patient's care team: 35 minutes Charges/Coding Visit Charges Inpatient E&M: 20490 Subs Hosp L2
--- NOTE | 2024-04-13 15:08 | CHAPLAIN ---
Type of Pastoral Visit _x__ Initial Visit ___ Follow-up Visit ___ On-call Visit ___ General Patient Visit ___ Spiritual Assessment ___ Family Conference ___ Bereavement ___ Rapid Response ___ Code Blue ___ Other (describe below) Pastoral Care Referral From _x__ Patient ___ Family ___ Nurse ___ Physician ___ Residential Real Estate Agent ___ Headwaitress ___ Other (describe below) Sacrament/Intervention _x__ Active listening ___ Anointing ___ Nondenominational ___ Bereavement ___ Communion ___ Christiana exploration ___ _x__ Life review ___ Prayer ___ Reconciliation ___ Sacrament of Sick _x__ Supportive presence ___ Wedding ___ Other (describe below) Pastoral Comments patient has been seen before in this hospital and in another hospital; pt is usually quick to become negative in her tone and in her evaluation of the medical profession; pt does talk openly about her experience, her feelings, her family environment, and her hopes for the future; pt has raised money from a foundation to have a [place] vacation due to her diagnosis and prognosis of disease and wants to have that happen before I am unable to do it; pt realizes that she needs further medical intervention before this can happen; pt states that she needs a vehicle that can handle a large wheelchair and requests this plant facilities technician to keep your eyes open for one; most of all the patient needed someone to talk with and time was granted to listen today
--- NOTE | 2024-04-13 15:38 | NURSING ---
Pt states he left hand is stiff, nurse encouraged her to bend it, and took her arm and put it on her chest, and her hand relaxed. Nurse placed her hand at her side and pt's hand was relaxed. Pt is being given time to decide if she wants to have the iv used or not, however if doesn't want it used, it could delay care. this nurse said the med she will be getting would not be good to infuse in the breast iv placed close to the right breast. this nurse witnessed Tamara the charge nursemorales the iv in the left wrist and it inserted easily, with great blood return and there was no complain with insertion. it was an easy insertion.
[2024-04-13] MEDS: Potassium Chloride Oral Tablet 20 MEQ PO (17:01)
--- NOTE | 2024-04-13 17:42 | NURSING ---
spoke with Silvana in pharmacy was informed that pt will be getting a picc line tomorrow, and need retime the iron for tomorrow.
[2024-04-13] MEDS: Acetaminophen 325 MG Tablet 650 MG PO (20:55)
[2024-04-14] VITALS (11 sets, daily range): BP systolic 124–154; BP diastolic 66–84; PULSE 102–126; RESP 16–24; TEMP 36.3–36.8; O2SAT 94–98
[2024-04-14] MEDS: Ipratropium/Albuterol Sulfate 3 ML AMPUL.NEB INHALATION ×3 (01:00→19:33)
[2024-04-14 05:25] LABS: Hematocrit 27.6 % (37-47); Hemoglobin 7.3 g/dL (12.0-15.0)
[2024-04-14] MEDS: Acetaminophen 325 MG Tablet 650 MG PO ×2 (05:54→12:44)
[2024-04-14] MEDS: Gabapentin 300 MG Capsule PO ×3 (05:55→22:15)
[2024-04-14 06:12] LABS: BUN 15 mg/dL (7-18); BUN/Creat Ratio 12.7 RATIO (10-20); Carbon Dioxide > 45.0 mmol/L (21.0-32.0); Chloride 80 mmol/L (98-107); Creatinine, Serum 1.18 mg/dL (0.55-1.02); EST Glomerular Filtration Rate 52 mL/min (>60); Est Glom Filt Rate - Afr Amer 63 mL/min (>60); Estimated Creatinine Clearance 117.66 ml/min; Glucose 423 mg/dL (74-106); Potassium 3.3 mmol/L (3.5-5.1); Sodium Level 133 mmol/L (136-145)
[2024-04-14] MEDS: Budesonide Respules 0.5 MG/2 ML AMPUL.NEB. INHALATION ×2 (07:36→19:33)
[2024-04-14] MEDS: Furosemide 500 MG in Empty Viaflex 50 mL 1 EACH CONT INF (09:51)
[2024-04-14] MEDS: Pantoprazole Sodium 40 MG Tablet PO (11:01)
[2024-04-14] MEDS: Enoxaparin 40 MG/0.4 ML Syringe SC ×2 (11:02→22:10)
[2024-04-14] MEDS: Montelukast 10 MG Tablet PO (11:02)
[2024-04-14] MEDS: Potassium Chloride Oral Tablet 20 MEQ PO ×2 (11:02→17:50)
[2024-04-14] MEDS: DULoxetine Hcl 30 MG Capsule PO ×2 (11:02→22:09)
[2024-04-14] MEDS: Ferrous Sulfate 325 MG Tablet PO (11:03)
[2024-04-14 11:31] LABS: Bedside Glucose 315 mg/dL (74-106)
[2024-04-14] MEDS: Insulin Lispro 100 UNIT/ML INSULN.PEN SC ×3 (12:30→22:09)
[2024-04-14] MEDS: Sodium Ferric Gluconat/Sucrose 250 MG in 0.9% Normal Saline (250mL Bag) 250 ML 135 MG IV (13:55)
[2024-04-14] MEDS: Potassium Chloride Oral Tablet 20 MEQ 40 MEQ PO (14:04)
[2024-04-14 16:29] LABS: Bedside Glucose 263 mg/dL (74-106)
[2024-04-14] MEDS: Furosemide 20 MG Tablet PO (17:51)
--- NOTE | 2024-04-14 19:03 | PCM.PN.HOSP ---
Reason for Visit Reason for Visit: Diagnoses Anemia, unspecified (04/12/24) Other abnormalities of breathing (04/12/24) Generalized edema (04/12/24) Subjective Subjective Patient was seen and examined today, IV access was lost this afternoon so I elected to keep her IV out because of the difficulty finding an adequate pain. Patient was transitioned to oral Lasix today, there appears to be a decrease in her lower leg edema from the Lasix drip the patient was receiving. Objective Data Objective Data Vital Signs: Vital Signs Temp Pulse Resp BP Pulse Ox O2 Del Method O2 Flow Rate 97.4 F L 126 H 20 H 125/72 H 98 Nasal Cannula 4 04/14/24 17:55 04/14/24 17:55 04/14/24 17:55 04/14/24 17:55 04/14/24 17:55 04/14/24 17:55 04/14/24 16:08 Oxygen Flow Rate (L/min) 4 Oxygen Delivery Method Nasal Cannula Weight: 227.2 kg Body Mass Index (BMI) 80.8 Intake & Output: Intake and Output for Last 24 Hours 04/12/24 04/13/24 04/14/24 23:59 23:59 23:59 Intake Total 400 / 400 318.33 / 318.33 Output Total 7900 / 54355 82312 / 89417 Balance -7500 / -80807 -39344.67 / -21570.67 Lab / Micro Data 04/14/24 04:53 04/14/24 04:53 Labs: Laboratory Results - last 24 hr 04/14/24 04:53: Hgb 7.3 L, Hct 27.6 L, Sodium 133 L, Potassium 3.3 L, Chloride 80 L, Carbon Dioxide > 45.0 H*, Anion Gap TNP, BUN 15, Creatinine 1.18 H, Estim Creat Clear Calc 117.66, Est GFR (MDRD) Af Amer 63, Est GFR (MDRD) Non-Af 52 L, BUN/Creatinine Ratio 12.7, Glucose 423 H, Calcium 9.0 04/14/24 11:09: POC Glucose 315 H 04/14/24 16:11: POC Glucose 263 H Micro: Microbiology 04/12/24 11:33 Mucosa - Nose SARS-CoV-2, Influenza & RSV (PCR) - Final Rhythm Strip Rhythm Strip: Sinus Tach Rate: 115 Ectopy: None Physical Exam Narrative alert, oriented x3 and no apparent distress Constitutional Narrative: Patient has class III obesity General Appearance: cooperative, well kempt and well developed Orientation / Consciousness: awake, oriented to person, oriented to place and oriented to time HEENT normocephalic, head/scalp atraumatic and moist oral mucous membranes Eyes PERRL, EOMs intact bilaterally and conjunctivae normal Neck supple, no JVD, thyroid normal and no carotid bruits General: trachea midline Resp normal respiratory effort, no retractions, no use of accessory muscles and clear to auscultation bilaterally Auscultation: Negative for rales, rhonchi or wheezes Cardio regular rate, regular rhythm, S1 normal heart sound, S2 normal heart sound, no murmurs, no rub and no gallops GI normal to inspection, nondistended, normoactive bowel sounds, soft to palpation, non-tender and non-distended Extremity Extremity Narrative: Patient has lymphedematous changes over both lower legs along with generalized edema over both lower legs. Skin Patient has some slight redness of the lower legs without warmth or discharge General Skin Exam: no breakdown Neuro oriented x3, CN's II-XII intact bilaterally, moves all extremities, no focal motor deficits and no sensory deficits noted Sensorium / Orientation: awake and alert Speech: speech normal Psych affect normal Assessment & Plan Assessment/Plan (1) Anasarca: PLAN: Plan 1. Anasarca-patient was transitioned over to oral Lasix at 20 mg twice daily, she had a very large urine output from the IV Lasix drip #2 chronic hypoxic respiratory failure-patient's oxygen requirement at the present time is 4 L which is close to her oxygen requirement at home. I do not believe she has an exacerbation of COPD/asthma at this time #3 acute debility secondary to anasarca and class III obesity-patient will be seen by PT and OT, again she does not want to go to an extended care facility for short-term rehab services. #4 chronic iron deficiency anemia-patient did receive 1 infusion of Venna for today before her IV went bad, patient's hemoglobin today was 7.3 #5 chronic asthma-patient will remain on aerosol treatments #6 hypokalemia-patient was given potassium supplementation today, BMP will be rechecked tomorrow Acute asthma exacerbation was ruled out Total clinical time spent by myself addressing the patient's medical issues, reviewing all of her data, and collaborating with patient's care team: 35 minutes Charges/Coding Visit Charges Inpatient E&M: 05905 Subs Hosp L2
[2024-04-14 23:18] LABS: Bedside Glucose 306 mg/dL (74-106)
[2024-04-15] VITALS (11 sets, daily range): BP systolic 116–168; BP diastolic 66–100; PULSE 102–126; RESP 18–22; TEMP 36.5–36.9; O2SAT 92–97
[2024-04-15] MEDS: Ipratropium/Albuterol Sulfate 3 ML AMPUL.NEB INHALATION ×4 (01:29→19:10)
[2024-04-15] MEDS: Gabapentin 300 MG Capsule PO ×3 (06:47→22:42)
[2024-04-15] MEDS: Insulin Lispro 100 UNIT/ML INSULN.PEN SC ×4 (06:47→22:43)
[2024-04-15] MEDS: Budesonide Respules 0.5 MG/2 ML AMPUL.NEB. INHALATION ×2 (07:00→19:10)
[2024-04-15 07:01] LABS: Bedside Glucose 259 mg/dL (74-106)
[2024-04-15 08:04] LABS: BUN 17 mg/dL (7-18); BUN/Creat Ratio 17.9 RATIO (10-20); Calcium,Total 9.3 mg/dL (8.5-10.1); Carbon Dioxide > 45.0 mmol/L (21.0-32.0); Chloride 82 mmol/L (98-107); Creatinine, Serum 0.95 mg/dL (0.55-1.02); EST Glomerular Filtration Rate 67 mL/min (>60); Est Glom Filt Rate - Afr Amer 81 mL/min (>60); Estimated Creatinine Clearance 146.15 ml/min; Glucose 301 mg/dL (74-106); Potassium 3.1 mmol/L (3.5-5.1); Sodium Level 133 mmol/L (136-145)
[2024-04-15] MEDS: Enoxaparin 40 MG/0.4 ML Syringe SC ×2 (08:31→22:43)
[2024-04-15] MEDS: Montelukast 10 MG Tablet PO (08:31)
[2024-04-15] MEDS: DULoxetine Hcl 30 MG Capsule PO ×2 (08:31→22:42)
[2024-04-15] MEDS: Potassium Chloride Oral Tablet 20 MEQ PO ×2 (08:31→16:29)
[2024-04-15] MEDS: Furosemide 20 MG Tablet PO ×2 (08:31→17:28)
[2024-04-15] MEDS: Pantoprazole Sodium 40 MG Tablet PO (08:31)
--- NOTE | 2024-04-15 09:16 | CASEMGMT ---
Addendum entered by Marleny Cedeño 04/15/24 09:19: Keiko's phone number is [phone]. Marleny BRNAHAM Original Note: NICOLE received a call from Keiko Pinto with [facility]. Keiko is patient's case reviewer. Keiko requested SW notify her when patient is discharged and about her d/c plan. Marleny BRANHAM
[2024-04-15] MEDS: Ferrous Sulfate 325 MG Tablet PO (11:29)
[2024-04-15] MEDS: Potassium Chloride Oral Tablet 20 MEQ 40 MEQ PO ×2 (11:29→20:11)
[2024-04-15 11:49] LABS: Bedside Glucose 273 mg/dL (74-106)
--- NOTE | 2024-04-15 11:51 | WOUNDNOTE ---
wound photo: abdomen
--- NOTE | 2024-04-15 11:51 | WOUNDNOTE ---
wound photo: abdomen
--- NOTE | 2024-04-15 15:49 | CASEMGMT ---
Discharge Planning A list of?HH providers including quality and resource use data and consistent with the patient's preferred geographic region, medical needs, and insurance network was created in [facility].? This list was provided to the RN KATHIE. Latisha Hsu, Discharge Planning Asst.
--- NOTE | 2024-04-15 15:55 | CASEMGMT ---
JAN VÁZQUEZ updated that patient may possibly discharge today. JAN VÁZQUEZ reviewed progress with therapy, 20feet contact guard. JAN VÁZQUEZ in to discuss needs at discharge and reviewed progress with therapy. Patient wishes to discharge home with [facility] for SN, PT, and OT. Patient prefers [facility]. JAN VÁZQUEZ called [facility] and they are at capacity for NANCY patient's. JAN VÁZQUEZ updated patient and provided with HHC list. Patient is agreeable to have referral sent to all 6 agencies on the list. Patient denies additional needs at discharge. Patient states she is having abdominal pain and is requesting nursing. Patient had no further questions or concerns. JAN VÁZQUEZ updated patient's nurse regarding abdominal pain. CM will continue to follow this patient and plan for a safe discharge.
[2024-04-15] MEDS: Acetaminophen 325 MG Tablet 650 MG PO ×2 (16:01→22:42)
[2024-04-15] MEDS: Dicyclomine 10 MG Capsule PO ×2 (16:29→22:42)
[2024-04-15 18:04] LABS: Bedside Glucose 256 mg/dL (74-106)
--- NOTE | 2024-04-15 19:10 | PCM.PN.HOSP ---
Reason for Visit Reason for Visit: Diagnoses Anemia, unspecified (04/12/24) Other abnormalities of breathing (04/12/24) Generalized edema (04/12/24) Subjective Subjective Patient was seen and examined today, she does not feel that she is diuresing enough and it does not appear that she has had much diuresis since yesterday when her Lasix was changed. I have elected to increase her Lasix to 40 mg twice daily, BMP will be repeated tomorrow Objective Data Objective Data Vital Signs: Vital Signs Temp Pulse Resp BP Pulse Ox O2 Del Method O2 Flow Rate 98.5 F 126 H 22 H 168/100 H 93 Nasal Cannula 4 04/15/24 18:45 04/15/24 18:45 04/15/24 18:45 04/15/24 18:45 04/15/24 18:45 04/15/24 18:45 04/15/24 18:45 Oxygen Flow Rate (L/min) 4 Oxygen Delivery Method Nasal Cannula Weight: 227.2 kg Body Mass Index (BMI) 80.8 Intake & Output: Intake and Output for Last 24 Hours 04/13/24 04/14/24 04/15/24 23:59 23:59 23:59 Intake Total 400 / 400 1818.33 / 1818.33 1200 / 1200 Output Total 7900 / 19405 97771 / 99260 2049 / 2049 Balance -7500 / -81302 -9381.67 / -9381.67 -850 / -850 Lab / Micro Data 04/14/24 04:53 04/15/24 04:27 Labs: Laboratory Results - last 24 hr 04/14/24 22:03: POC Glucose 306 H 04/15/24 04:27: Sodium 133 L, Potassium 3.1 L, Chloride 82 L, Carbon Dioxide > 45.0 H*, Anion Gap TNP, BUN 17, Creatinine 0.95, Estim Creat Clear Calc 146.15, Est GFR (MDRD) Af Amer 81, Est GFR (MDRD) Non-Af 67, BUN/Creatinine Ratio 17.9, Glucose 301 H, Calcium 9.3 04/15/24 06:43: POC Glucose 259 H 04/15/24 11:28: POC Glucose 273 H 04/15/24 16:28: POC Glucose 256 H Micro: Microbiology 04/12/24 11:33 Mucosa - Nose SARS-CoV-2, Influenza & RSV (PCR) - Final Rhythm Strip Rhythm Strip: Sinus Tach Rate: 115 Ectopy: None Physical Exam Narrative alert, oriented x3 and no apparent distress Constitutional Narrative: Patient has class III obesity General Appearance: cooperative, well kempt and well developed Orientation / Consciousness: awake, oriented to person, oriented to place and oriented to time HEENT normocephalic, head/scalp atraumatic and moist oral mucous membranes Eyes PERRL, EOMs intact bilaterally and conjunctivae normal Neck supple, no JVD, thyroid normal and no carotid bruits General: trachea midline Resp normal respiratory effort, no retractions, no use of accessory muscles and clear to auscultation bilaterally Auscultation: Negative for rales, rhonchi or wheezes Cardio regular rate, regular rhythm, S1 normal heart sound, S2 normal heart sound, no murmurs, no rub and no gallops GI normal to inspection, nondistended, normoactive bowel sounds, soft to palpation, non-tender and non-distended Extremity Extremity Narrative: Patient has lymphedematous changes over both lower legs along with generalized edema over both lower legs. Skin Patient has some slight redness of the lower legs without warmth or discharge General Skin Exam: no breakdown Neuro oriented x3, CN's II-XII intact bilaterally, moves all extremities, no focal motor deficits and no sensory deficits noted Sensorium / Orientation: awake and alert Speech: speech normal Psych affect normal Assessment & Plan Assessment/Plan (1) Anasarca: PLAN: Plan 1. Anasarca-patient's Lasix will be increased to 40 mg twice daily, BMP will be rechecked tomorrow #2 chronic hypoxic respiratory failure-patient's oxygen requirement at the present time is 4 L which is close to her oxygen requirement at home. I do not believe she has an exacerbation of COPD/asthma at this time #3 acute debility secondary to anasarca and class III obesity-patient will be seen by PT and OT, again she does not want to go to an extended care facility for short-term rehab services. #4 chronic iron deficiency anemia-patient did receive 1 infusion of Venna for today before her IV went bad, patient's hemoglobin today was 7.3 #5 chronic asthma-patient will remain on aerosol treatments #6 hypokalemia-patient was given potassium supplementation today, BMP will be rechecked tomorrow Acute asthma exacerbation was ruled out Total clinical time spent by myself addressing the patient's medical issues, reviewing all of her data, and collaborating with patient's care team: 35 minutes Charges/Coding Visit Charges Inpatient E&M: 65972 Subs Hosp L2
[2024-04-15] MEDS: Furosemide 40 MG Tablet PO (20:11)
[2024-04-15 23:22] LABS: Bedside Glucose 243 mg/dL (74-106)
[2024-04-16] VITALS (9 sets, daily range): BP systolic 129–152; BP diastolic 63–97; PULSE 108–116; RESP 18–25; TEMP 36.2–36.6; O2SAT 94–98
[2024-04-16] MEDS: Ipratropium/Albuterol Sulfate 3 ML AMPUL.NEB INHALATION ×3 (01:30→13:24)
[2024-04-16] MEDS: Insulin Lispro 100 UNIT/ML INSULN.PEN SC ×2 (06:26→12:09)
[2024-04-16] MEDS: Gabapentin 300 MG Capsule PO ×2 (06:26→13:43)
[2024-04-16 06:49] LABS: Bedside Glucose 201 mg/dL (74-106)
[2024-04-16] MEDS: Budesonide Respules 0.5 MG/2 ML AMPUL.NEB. INHALATION (06:59)
[2024-04-16 07:54] LABS: Anion Gap 4 (5-15); BUN 15 mg/dL (7-18); BUN/Creat Ratio 18.2 RATIO (10-20); Calcium,Total 9.2 mg/dL (8.5-10.1); Chloride 86 mmol/L (98-107); Creatinine, Serum 0.82 mg/dL (0.55-1.02); EST Glomerular Filtration Rate 79 mL/min (>60); Est Glom Filt Rate - Afr Amer 96 mL/min (>60); Estimated Creatinine Clearance 169.32 ml/min; Glucose 193 mg/dL (74-106); Potassium 3.3 mmol/L (3.5-5.1); Sodium Level 134 mmol/L (136-145)
--- NOTE | 2024-04-16 09:47 | CASEMGMT ---
Addendum entered by Latisha Hsu 04/16/24 10:19: Noni, Janes, Maryse, and declined. left for CHN. HH referral sent to [facility]. Latisha Hsu DC Planning Asst. Original Note: HH referral sent to the following: TEO Cheney, Maryse Marrero, and [facility]. Latisha Hsu DC Planning Asst.
--- NOTE | 2024-04-16 09:48 | DCINST_ITS ---
Discharge Instructions Diet Discharge Diet: 1800 Calorie Control Diet DC O2, CPAP, BIPAP needs Home O2 Discharge instructions: Yes Type of respiratory needs?: Oxygen Oxygen frequency: Continuous Continuous oxygen liters per minute: 3 L Dressing / Incision Discharge Activity: Return to Normal Activity Follow Up Care Test Results: Test results from this visit will be discussed in further detail at your follow- up appointment, if applicable. Discharge Plan Admission Admit Date/Time: 04/12/24 16:47 Primary Reason for Your Visit: navid Attending Provider: Grey Barrera Primary Care Provider: Mireille Dietz Consulting Providers: Kin Cueva Instructions Additional Instructions / Restrictions: Oxygen at 3 L/min continuously Discharge Orders/Prescriptions Prescriptions: New furosemide 40 mg Tablet 40 mg PO BIDLX Qty: 60 0RF potassium chloride 20 mEq Tablet,Er Particles/Crystals 40 meq PO BIDCM Qty: 120 0RF gabapentin 300 mg Capsule 300 mg PO TID Qty: 1 0RF duloxetine 30 mg Capsule,Delayed Release(Dr/Ec) 30 mg PO BID Qty: 0 0RF glimepiride 2 mg tablet 2 mg PO DAILY Qty: 30 0RF Continued gabapentin 300 mg Capsule 300 mg PO TID montelukast 10 mg Tablet 10 mg PO BID ciclesonide 80 mcg/actuation Hfa Aerosol Inhaler 1 puff INHALATION BID albuterol sulfate 90 mcg/actuation Aerosol Powdr Breath Activated 1 inh INHALATION Q6H PRN (Reason: Wheezing) acetaminophen 650 mg Tablet Extended Release 1,300 mg PO Q12H mupirocin 2 % ointment 1 applic TOPICAL DAILY Patient Comments: Apply 1 application to affected area twice daily. pantoprazole 40 mg tablet,delayed release (DR/EC) 40 mg PO DAILY Qty: 30 2RF ferrous sulfate 325 mg (65 mg iron) tablet,delayed release (DR/EC) 325 mg PO BID Qty: 60 2RF cetirizine 10 mg tablet 10 mg PO DAILY ipratropium-albuterol 0.5 mg-3 mg(2.5 mg base)/3 mL solution for nebulization 3 ml inhalation Q4H PRN (Reason: shortness of breath) Patient Comments: [NO ORIGINAL SIG] guaifenesin [Mucus Relief ER] 1,200 mg tablet extended release 12hr 1,200 mg PO BID Patient Comments: [NO ORIGINAL SIG] albuterol sulfate 2.5 mg /3 mL (0.083 %) solution for nebulization 2.5 mg inhalation Q4H PRN (Reason: shortness of breath or wheezing) Patient Comments: [NO ORIGINAL SIG] ergocalciferol (vitamin D2) [Vitamin D2] 1,250 mcg (50,000 unit) capsule 1,250 mcg PO FR megestrol 40 mg tablet 80 mg PO TID Patient Comments: [NO ORIGINAL SIG] metformin 500 mg tablet 500 mg PO BID ondansetron 4 mg tablet,disintegrating 4 mg PO Q6H PRN (Reason: nausea and vomiting) ascorbic acid (vitamin C) 500 mg tablet 500 mg PO BID Patient Comments: [NO ORIGINAL SIG] dicyclomine 10 mg capsule 10 mg PO TID PRN (Reason: abdominal pain) Discontinued furosemide 40 mg tablet 40 mg PO BID ertapenem 1 gram recon soln 1 g IV Q24H Qty: 7 0RF Rx Instructions: weekly bmp, cbc, and LFT while on iv abx, fax to [phone]. gabapentin 100 mg capsule 100 mg PO TID chlorhexidine gluconate 4 % liquid 1 applic topical DAILY duloxetine 30 mg capsule,delayed release(DR/EC) 30 mg PO BID Referrals / Follow Up: Mireille Dietz MD [Primary Care Provider] - Within 2 Weeks Disposition Disposition (needs filled in before D/C Order can be placed): Home, Self Care
--- NOTE | 2024-04-16 10:04 | DS.PCM_ITS ---
Providers Date of Admission: 04/12/24 Date of Discharge: 04/16/24 Primary Care Physician: Dr. Mireille Dietz MD Consultations 04/15/24 08:05 Consult: Onc/Wound/hobbies and crafts sales representative Routine Comment: Comments:: abdominal wounds Reason For Visit: SOB W/HYPOXIA, ASTHMA W/CONCERN FOR POSSIBLE PE Diagnosis Discharge Diagnosis (1) Anasarca: Status: Acute Code(s): R60.1 - Generalized edema Plan 1. Anasarca-patient's Lasix will be increased to 40 mg twice daily, BMP will be rechecked tomorrow #2 chronic hypoxic respiratory failure-patient's oxygen requirement at the present time is 4 L which is close to her oxygen requirement at home. I do not believe she has an exacerbation of COPD/asthma at this time #3 acute debility secondary to anasarca and class III obesity-patient will be seen by PT and OT, again she does not want to go to an extended care facility for short-term rehab services. #4 chronic iron deficiency anemia-patient did receive 1 infusion of Venna for today before her IV went bad, patient's hemoglobin today was 7.3 #5 chronic asthma-patient will remain on aerosol treatments #6 hypokalemia-patient was given potassium supplementation today, BMP will be rechecked tomorrow #7 chronic lymphedema Acute asthma exacerbation/COPD exacerbation was ruled out Total clinical time spent by myself addressing the patient's medical issues, reviewing all of her data, and collaborating with patient's care team: 35 minutes Medications at Discharge Home Medications acetaminophen 650 mg tablet,extended release 1,300 mg PO Q12H PAIN 10/02/20 albuterol sulfate 90 mcg/actuation breath activated powder inhaler 1 inh inhalation Q6H PRN Wheezing 10/02/20 ciclesonide 80 mcg/actuation aerosol inhaler 1 puff inhalation BID SOB 10/02/20 gabapentin 300 mg capsule 300 mg PO TID muscle spasms 10/02/20 montelukast 10 mg tablet 10 mg PO BID ALLERGIES 10/02/20 mupirocin 2 % topical ointment 1 applic topical DAILY antibiotic 12/19/20 ferrous sulfate 325 mg (65 mg iron) tablet,delayed release 325 mg PO BID supplement #60 tabs 06/01/23 pantoprazole 40 mg tablet,delayed release 40 mg PO DAILY stomach #30 tabs 03/17/24 albuterol sulfate 2.5 mg/3 mL (0.083 %) solution for nebulization 2.5 mg inhalation Q4H PRN shortness of breath or wheezing 04/12/24 ascorbic acid (vitamin C) 500 mg tablet 500 mg PO BID vitamin 04/12/24 cetirizine 10 mg tablet 10 mg PO DAILY allergies 04/12/24 dicyclomine 10 mg capsule 10 mg PO TID PRN abdominal pain 04/12/24 ergocalciferol (vitamin D2) 1,250 mcg (50,000 unit) capsule (Vitamin D2) 1,250 mcg PO FR vitamin 04/12/24 guaifenesin 1,200 mg tablet, extended release 12 hr (Mucus Relief ER) 1,200 mg PO BID cough 04/12/24 ipratropium 0.5 mg-albuterol 3 mg (2.5 mg base)/3 mL nebulization soln 3 ml inhalation Q4H PRN shortness of breath 04/12/24 megestrol 40 mg tablet 80 mg PO TID cancer 04/12/24 metformin 500 mg tablet 500 mg PO BID diabetes 04/12/24 ondansetron 4 mg disintegrating tablet 4 mg PO Q6H PRN nausea and vomiting 04/12/24 duloxetine 30 mg capsule,delayed release 30 mg PO BID #0 caps 04/16/24 furosemide 40 mg tablet 40 mg PO BIDLX #60 tabs 04/16/24 gabapentin 300 mg capsule 300 mg PO TID #1 cap 04/16/24 glimepiride 2 mg tablet 2 mg PO DAILY #30 tabs 04/16/24 potassium chloride 20 mEq tablet,extended release(part/cryst) 40 meq (2 x 20 mEq) PO BIDCM #120 tabs 04/16/24 Hospital Course Operations None Procedures None Summary of Care Provided Minutes Spent on Discharge: 32 Hospital Course: This 48-year-old white female was seen in the emergency room at [facility] with a chief complaint of increased shortness of breath and weight gain. Patient denied any fevers or chills. Workup in the emergency room included a chest x-ray which showed a stable chest with no acute or emergent finding, patient required 4 L of supplemental oxygen which was her baseline at home. Patient was initially felt to have an exacerbation of COPD, she was admitted to PCU and placed on aerosol treatments and oral prednisone. Patient was noted to have a chronic iron deficiency anemia but it was not necessary to give the patient any transfusion. When I evaluated the patient, I felt her presentation was more in keeping with anasarca and overall fluid overload, I placed the patient on an IV Lasix drip and she diuresed 16 L over 24-hour period. Patient was then transition over to oral Lasix and additional diuresis was carried out. On 04/16/2024, patient was seen and examined: On examination she appeared in good health and spirits, she does not appear to be in any distress. Vital signs as documented. Skin warm and dry and without overt rashes. Neck without JVD, thyroid appears normal, trachea is midline, neck is supple. Lungs clear, normal air movement was noted. Heart exam notable for regular rhythm, normal sounds and absence of murmurs, rubs or gallops. Abdomen unremarkable and without evidence of organomegaly, masses, or abdominal aortic enlargement, bowel sounds are present in all 4 quadrants, no abdominal tenderness was noted. Extremities chronically edematous with signs of lymphedema, no cyanosis was noted, no clubbing was noted. Neuro: Cranial nerves II through XII are grossly intact, no focal motor deficits were noted, sensation to light touch and pinprick is intact, motor exam 5/5 throughout. Psych: Patient is alert and oriented x3, she does not appear anxious or depressed, she does not appear agitated. Patient appeared stable for discharge home on 04/16/2024 Weight / BMI Weight Weight: 227.2 kg Body Mass Index (BMI) 80.8 ABG / Lab / Microbiology Data 04/14/24 04:53 04/16/24 06:45 Laboratory: Laboratory Results - last 24 hr 04/15/24 11:28: POC Glucose 273 H 04/15/24 16:28: POC Glucose 256 H 04/15/24 22:41: POC Glucose 243 H 04/16/24 06:25: POC Glucose 201 H 04/16/24 06:45: Sodium 134 L, Potassium 3.3 L, Chloride 86 L, Carbon Dioxide 43.0 H, Anion Gap 4 L, BUN 15, Creatinine 0.82, Estim Creat Clear Calc 169.32, Est GFR (MDRD) Af Amer 96, Est GFR (MDRD) Non-Af 79, BUN/Creatinine Ratio 18.2, Glucose 193 H, Calcium 9.2 Microbiology: Microbiology 04/12/24 11:33 Mucosa - Nose SARS-CoV-2, Influenza & RSV (PCR) - Final D/C Instructions Discharge Diet: 1800 Calorie Control Diet DC O2, CPAP, BIPAP Needs Home O2 Discharge instructions: Yes Type of respiratory needs?: Oxygen Oxygen frequency: Continuous Continuous oxygen liters per minute: 3 L DC home with Oxygen: Yes Home O2 MD Review: I have reviewed the oxygen testing, and the patient qualifies for home oxygen equipment and portability. The patient is mobile in the home and the community. Meaningful Use Info Meaningful Use Meaningful Use Diagnoses (Choose all that apply): None applicable Ischemic Stroke Statin Dosing Therapy Reference: STATIN DOSE THERAPY REFERENCE: * Patients > 75 years receive moderate or high dose statin therapy. * Patients 75 years or YOUNGER should receive HIGH intensity statin dose unless contraindicated. You will be required to document reason for non-treatment if statin daily dose does not meet guidelines. HIGH DOSE STATIN THERAPY DAILY Atorvastatin > than or = to 40 mg Rosuvastatin > than or = to 20 mg Amlodipine + Atorvastatin > than or = to 2.5/40 mg Ezetimibe + Simvastatin 10/80 mg Simvastatin 80mg Discharge Plan Admission Admit Date/Time: 04/12/24 16:47 Primary Reason for Your Visit: navid Attending Provider: Grey Barrera Primary Care Provider: Mireille Dietz Consulting Providers: Kin Cueva Instructions Additional Instructions / Restrictions: Oxygen at 3 L/min continuously Discharge Orders/Prescriptions Prescriptions: New furosemide 40 mg Tablet 40 mg PO BIDLX Qty: 60 0RF potassium chloride 20 mEq Tablet,Er Particles/Crystals 40 meq PO BIDCM Qty: 120 0RF gabapentin 300 mg Capsule 300 mg PO TID Qty: 1 0RF duloxetine 30 mg Capsule,Delayed Release(Dr/Ec) 30 mg PO BID Qty: 0 0RF glimepiride 2 mg tablet 2 mg PO DAILY Qty: 30 0RF Continued gabapentin 300 mg Capsule 300 mg PO TID montelukast 10 mg Tablet 10 mg PO BID ciclesonide 80 mcg/actuation Hfa Aerosol Inhaler 1 puff INHALATION BID albuterol sulfate 90 mcg/actuation Aerosol Powdr Breath Activated 1 inh INHALATION Q6H PRN (Reason: Wheezing) acetaminophen 650 mg Tablet Extended Release 1,300 mg PO Q12H mupirocin 2 % ointment 1 applic TOPICAL DAILY Patient Comments: Apply 1 application to affected area twice daily. pantoprazole 40 mg tablet,delayed release (DR/EC) 40 mg PO DAILY Qty: 30 2RF ferrous sulfate 325 mg (65 mg iron) tablet,delayed release (DR/EC) 325 mg PO BID Qty: 60 2RF cetirizine 10 mg tablet 10 mg PO DAILY ipratropium-albuterol 0.5 mg-3 mg(2.5 mg base)/3 mL solution for nebulization 3 ml inhalation Q4H PRN (Reason: shortness of breath) Patient Comments: [NO ORIGINAL SIG] guaifenesin [Mucus Relief ER] 1,200 mg tablet extended release 12hr 1,200 mg PO BID Patient Comments: [NO ORIGINAL SIG] albuterol sulfate 2.5 mg /3 mL (0.083 %) solution for nebulization 2.5 mg inhalation Q4H PRN (Reason: shortness of breath or wheezing) Patient Comments: [NO ORIGINAL SIG] ergocalciferol (vitamin D2) [Vitamin D2] 1,250 mcg (50,000 unit) capsule 1,250 mcg PO FR megestrol 40 mg tablet 80 mg PO TID Patient Comments: [NO ORIGINAL SIG] metformin 500 mg tablet 500 mg PO BID ondansetron 4 mg tablet,disintegrating 4 mg PO Q6H PRN (Reason: nausea and vomiting) ascorbic acid (vitamin C) 500 mg tablet 500 mg PO BID Patient Comments: [NO ORIGINAL SIG] dicyclomine 10 mg capsule 10 mg PO TID PRN (Reason: abdominal pain) Discontinued furosemide 40 mg tablet 40 mg PO BID ertapenem 1 gram recon soln 1 g IV Q24H Qty: 7 0RF Rx Instructions: weekly bmp, cbc, and LFT while on iv abx, fax to [phone]. gabapentin 100 mg capsule 100 mg PO TID chlorhexidine gluconate 4 % liquid 1 applic topical DAILY duloxetine 30 mg capsule,delayed release(DR/EC) 30 mg PO BID Referrals / Follow Up: Mireille Dietz MD [Primary Care Provider] - 04/27/24 10:40 am Disposition Disposition (needs filled in before D/C Order can be placed): Home Health Service Charges/Coding Visit Charges Inpatient E&M: 20109 Disch Hosp >30min
--- NOTE | 2024-04-16 10:29 | CASEMGMT ---
NICOLE called patient's D[employer] window caser Keiko. NICOLE let Keiko know that patient will be discharged today. RN KATHIE is working on setting up home health, but is having troubles getting an accepting agency. Keiko asked NICOLE to fax d/c instructions to [phone]. NICOLE faxed d/c instructions to this number. Marleny Cedeño OUTSIDE MACHINIST SUPERVISOR YONAS
[2024-04-16] MEDS: Potassium Chloride Oral Tablet 20 MEQ 40 MEQ PO ×2 (10:36→10:40)
[2024-04-16] MEDS: Furosemide 40 MG Tablet PO (10:36)
[2024-04-16] MEDS: DULoxetine Hcl 30 MG Capsule PO (10:36)
[2024-04-16] MEDS: Montelukast 10 MG Tablet PO (10:37)
[2024-04-16] MEDS: Ferrous Sulfate 325 MG Tablet PO (10:37)
[2024-04-16] MEDS: Pantoprazole Sodium 40 MG Tablet PO (10:37)
--- NOTE | 2024-04-16 12:00 | CASEMGMT ---
JAN VÁZQUEZ updated via [facility] that [facility] is accepting patient for HHC with planned SOC within 48hours. JAN VÁZQUEZ in to update patient and is agreeable to [facility] HHC as she has had them in the past. Patient is asking for pulse ox as her was thrown out, JAN VÁZQUEZ provided patient with pulse ox. Patient had no further question or concerns. JAN VÁZQUEZ updated discharge plan.
[2024-04-16] MEDS: Dicyclomine 10 MG Capsule PO (12:08)
[2024-04-16 12:37] LABS: Bedside Glucose 287 mg/dL (74-106)
[2024-04-16 12:58] LABS: Hemoglobin A1c 8.6 % (3.8-5.6)
== END 2024-04-16 16:41 | disposition home health service (06) | DRG 861 ==
LOC: ED 16:29 → PCU 18:36
PROVIDERS: Admitting Provider Hospitalist; Emergency Provider Emergency Medicine; PCP Internal Medicine; Referring Provider Emergency Medicine; Visit Provider Internal Medicine
DX: R60.1 Generalized edema (principal); J96.12 Chronic respiratory failure with hypercapnia; E66.2 Morbid (severe) obesity with alveolar hypoventilation; Z68.45 Body mass index [BMI] 70 or greater, adult; J96.11 Chronic respiratory failure with hypoxia; E11.40 Type 2 diabetes mellitus with diabetic neuropathy, unspecified; D50.9 Iron deficiency anemia, unspecified; E66.813 Obesity, class 3; J44.89 Other specified chronic obstructive pulmonary disease; F32.A Depression, unspecified; K21.9 Gastro-esophageal reflux disease without esophagitis; I89.0 Lymphedema, not elsewhere classified; Z79.4 Long term (current) use of insulin; E87.6 Hypokalemia; Z90.710 Acquired absence of both cervix and uterus; Z79.84 Long term (current) use of oral hypoglycemic drugs; R53.81 Other malaise; Z79.899 Other long term (current) drug therapy
CPT/HCPCS: 36415; 71045; 80048; 80053; 82728; 82962; 83036; 83540; 83550; 83880; 84484; 85014; 85018; 85025; 85379; 86850; 86900; 86901; 87631; 93005; 93306; 93970; 94640; 94668; 97162; 97166; 97530; 99285; Q9957; A4216; C8929; J1940; J2916